=== PATIENT | male | born 1975 | race Caucasian/White ===

== ENCOUNTER 2021-06-25 08:02 | Emergency (ER) | payer MEDICARE, SELFPAY ==
--- NOTE | 2021-06-25 08:05 | ED.ANIMALBIT ---
HPI - Animal Bite General Chief Complaint: Wound/Laceration Stated Complaint: left finger dog bite Time Seen by Provider: 06/25/21 08:06 Source: patient and RN notes reviewed History of Present Illness HPI narrative: Patient is a 46-year-old male who presents the urgent care with complaints of a dog bite to the left ring finger. Patient states it happened yesterday morning when he was trying to unhook his dog from the outdoor lead. Patient states it was his dog and the dog is up-to-date on vaccinations. Patient is up-to-date on his tetanus shot. Patient states that he is clean the wound with alcohol and peroxide. No other complaints. Denies any fever. No acute distress noted. Patient aware of the plan of care. Some parts of this dictation were generated by voice recognition software and may contain typographical and/or grammatical inaccuracies. Related Data Home Medications Medication Instructions Recorded Confirmed Prozac 06/25/21 Allergies Allergy/AdvReac Type Severity Reaction Status Date / Time Sulfa (Sulfonamide Allergy rash Verified 06/25/21 08:24 Antibiotics) Review of Systems Review of Systems: CONSTITUTIONAL: Denies fever, chills, or sweats. EYES: Denies visual changes, redness, or discharge. ENT: Denies rhinorrhea, congestion, sore throat, or otalgia. CARDIOVASCULAR: Denies chest pain, palpitations, or edema. RESPIRATORY: Denies cough or dyspnea. GASTROINTESTINAL: Denies abdominal pain, nausea, vomiting, or diarrhea. GENITOURINARY: Denies dysuria or hematuria. SKIN: Reports of a dog bite to the left ring finger MUSCULOSKELETAL: Denies back pain, joint pain, or myalgia. NEUROLOGIC: Denies headache, numbness, or weakness. All other systems reviewed are negative, except as documented in HPI. PMFSH Comments At the time of my signature, I reviewed and agree with the nursing past medical, surgical, social, and family history. There is no relevant family history pertinent to the patient complaint. Exam Narrative: GENERAL: This is a well-nourished, well-developed patient, in no apparent distress. HEAD: normocephalic, atraumatic. EYES: PERRL. Sclera clear/white. Vision is grossly intact. EARS: External ears normal NOSE: External nose normal with no obvious nasal discharge, nares without redness, no rhinorrhea. THROAT: Mucous membranes moist NECK: Neck supple CARDIOVASCULAR: Regular rate and rhythm RESPIRATORY: Scant expiratory wheezes. SKIN: 2 cm linear open wound noted to the dorsal left ring finger with puncture wound to the palmar aspect of the left ring finger. NEURO: awake, alert, and oriented to person, place and time. There were no obvious focal neurologic abnormalities. EXTREMITIES: Moderate swelling with mild edema noted to the left ring finger from the PIP to the DIP. Positive strong left radial pulse with capillary refill less than 2 seconds. Course Course Level of Care: Express Care Visit Vital Signs Vital signs: Vital Signs Temperature 98.6 F 06/25/21 08:12 Pulse Rate 104 H 06/25/21 08:12 Respiratory Rate 20 06/25/21 08:12 Blood Pressure 182/89 H 06/25/21 08:12 Pulse Oximetry 100 06/25/21 08:12 Temperature 98.6 F 06/25/21 08:12 Pulse Rate 104 H 06/25/21 08:12 Respiratory Rate 20 06/25/21 08:12 Blood Pressure 182/89 H 06/25/21 08:12 Pulse Oximetry 100 06/25/21 08:12 Reviewed-patient is informed that they may have pre-hypertension or hypertension based on a blood pressure reading in the department. I recommend the patient call the primary care provider listed on their discharge instructions or a physician of their choice this week to arrange follow-up for further evaluation of possible pre-hypertension or hypertension. MDM - Animal Bite MDM Narrative Medical decision making narrative: Advised patient to clean the wound with plain Dial soap and water. Advised him to keep it open to air and use the prescription cream to the affected area as directed. Jayne
[2021-06-25 08:12] VITALS: BP 182/89; PULSE 104; RESP 20; TEMP 37; O2SAT 100
== END 2021-06-25 08:30 | disposition home or self-care (01) ==
PROVIDERS: Emergency Provider Nurse Practitioner Family; PCP Internal Medicine
DX: S61.255A Open bite of left ring finger without damage to nail, initial encounter (principal); W54.0XXA Bitten by dog, initial encounter; I10 Essential (primary) hypertension
CPT/HCPCS: 99213; G0463

== ENCOUNTER 2021-07-12 08:03 | Emergency (ER) | payer MEDICARE, SELFPAY ==
--- NOTE | 2021-07-12 08:05 | ED.ANIMALBIT ---
HPI - Animal Bite General Chief Complaint: Extremity Injury, Upper Stated Complaint: left ring finger follow up Time Seen by Provider: 07/12/21 08:05 Source: patient and RN notes reviewed History of Present Illness HPI narrative: Patient is a 26-year-old male who presents the urgent care with complaints of ongoing tenderness and slight redness around a dog bite to the left ring finger. Patient was seen on the after being bit by his own dog and placed on Augmentin and mupirocin. Patient states that it does look much better and he has continued the mupirocin however it is tender and there is slight redness surrounding the scab. Denies of any fevers, nausea, vomiting. No other acute complaints. No acute distress noted. Patient aware of the plan of care. Some parts of this dictation were generated by voice recognition software and may contain typographical and/or grammatical inaccuracies. Related Data Allergies Allergy/AdvReac Type Severity Reaction Status Date / Time Sulfa (Sulfonamide Allergy rash Verified 07/12/21 08:10 Antibiotics) Review of Systems Review of Systems: CONSTITUTIONAL: Denies fever, chills, or sweats. EYES: Denies visual changes, redness, or discharge. ENT: Denies rhinorrhea, congestion, sore throat, or otalgia. CARDIOVASCULAR: Denies chest pain, palpitations, or edema. RESPIRATORY: Denies cough or dyspnea. GASTROINTESTINAL: Denies abdominal pain, nausea, vomiting, or diarrhea. GENITOURINARY: Denies dysuria or hematuria. SKIN: Reports of redness and swelling surrounding a old dog bite MUSCULOSKELETAL: Denies back pain, joint pain, or myalgia. NEUROLOGIC: Denies headache, numbness, or weakness. All other systems reviewed are negative, except as documented in HPI. PMFSH Comments At the time of my signature, I reviewed and agree with the nursing past medical, surgical, social, and family history. There is no relevant family history pertinent to the patient complaint. Exam Narrative: GENERAL: This is a well-nourished, well-developed patient, in no apparent distress. HEAD: normocephalic, atraumatic. EYES: PERRL. Sclera clear/white. Vision is grossly intact. EARS: External ears normal NOSE: External nose normal with no obvious nasal discharge, nares without redness, no rhinorrhea. THROAT: Mucous membranes moist NECK: Neck supple CARDIOVASCULAR: Regular rate and rhythm without murmurs, gallops, or rubs. RESPIRATORY: Clear to auscultation. Breath sounds equal bilaterally. No wheezes, rales, or rhonchi. SKIN: 0.25 cm scab to the DIP of the left ring finger with mild surrounding 1 cm erythema and mild tenderness. Warm, intact with no suspicious lesions or rash, good texture and turgor. NEURO: awake, alert, and oriented to person, place and time. There were no obvious focal neurologic abnormalities. EXTREMITIES: No clubbing, cyanosis, or edema. Positive strong left radial pulse with capillary refill less than 2 seconds Course Course Level of Care: Express Care Visit Vital Signs Vital signs: Vital Signs Temperature 99.1 F 07/12/21 08:10 Pulse Rate 103 H 07/12/21 08:10 Respiratory Rate 20 07/12/21 08:10 Blood Pressure 151/86 H 07/12/21 08:10 Pulse Oximetry 100 07/12/21 08:10 Temperature 99.1 F 07/12/21 08:11 Pulse Rate 103 H 07/12/21 08:11 Respiratory Rate 20 07/12/21 08:11 Blood Pressure 151/86 H 07/12/21 08:11 Pulse Oximetry 100 07/12/21 08:11 Reviewed-patient is informed that they may have pre-hypertension or hypertension based on a blood pressure reading in the department. I recommend the patient call the primary care provider listed on their discharge instructions or a physician of their choice this week to arrange follow-up for further evaluation of possible pre-hypertension or hypertension. MDM - Animal Bite MDM Narrative Medical decision making narrative: Advised the patient to complete the oral antibiotic regimen as prescribed. Be sure to eat and drink with the
[2021-07-12 08:10] VITALS: BP 151/86; PULSE 103; RESP 20; TEMP 37.3; O2SAT 100
[2021-07-12 08:11] VITALS: BP 151/86; PULSE 103; RESP 20; TEMP 37.3; O2SAT 100
== END 2021-07-12 08:20 | disposition home or self-care (01) ==
PROVIDERS: Emergency Provider Nurse Practitioner Family; PCP Internal Medicine
DX: S61.255D Open bite of left ring finger without damage to nail, subsequent encounter (principal); W54.0XXD Bitten by dog, subsequent encounter; I10 Essential (primary) hypertension
CPT/HCPCS: 99213; G0463

== ENCOUNTER 2024-06-03 11:29 | Inpatient (IN) | payer MEDICARE, MEDICAID, SELFPAY ==
[2024-06-03] VITALS (84 sets, daily range): BP systolic 68–139; BP diastolic 37–125; PULSE 105–209; RESP 17–58; TEMP 36.6–38.5; O2SAT 78–99; BMI 25.0
--- NOTE | ~2024-06-03 | XR_ITS ---
EXAMINATION: XR chest 1V portable DATE: 06/03/2024 12:28 INDICATION: Shortness of breath. TECHNIQUE: A single frontal view of the chest was obtained. COMPARISON: None. FINDINGS: There are patchy airspace opacities in all lung zones bilaterally with sparing of the lung apices, consistent with pneumonia. No pleural effusion or pneumothorax. The heart size is normal. IMPRESSION: 1. Bilateral pneumonia. Reviewed, dictated and finalized at location A. CARPENTER MECHANIC IMPRESSION: 1. Bilateral pneumonia.
--- NOTE | ~2024-06-03 | CT_ITS ---
CT chest abdomen pelvis wo con Ordering provider: Bossman Ross MD History: 49 years Male with . worsening sepsis . Comparison: June 03, 2024 Technique: CT chest with IV contrast. CT abdomen and pelvis CT abdomen and pelvis with IV and with or al contrast. Radiation reduction technique utilized. The dose-length product was 990.74 mGy-cm. FINDINGS: CHEST: --VISUALIZED THORACIC INLET: Normal. --MEDIASTINUM: Aorta/coronary arteries: Mild atheromatous disease. Heart/other: The heart is slightly enlarged. Trace of pericardial effusion or pericardial thickening is noted. Endotracheal tube and nasogastric tube are seen. Left chest tube is also noted. Lymph nodes: No mediastinal or hilar adenopathy. --LUNGS: Trace of left pneumothorax is seen in the apex medially. Bilateral airspace disease is seen in the upper, middle and lower lobes and also in the lingula more in the lower lobes suggestive of pn eumonia. --MUSCULOSKELETAL: Soft tissues: The superficial soft tissues are normal. Bones: Age appropriate degenerative changes of the spine. No suspicious bony lytic or sclerotic lesio ns. ABDOMEN/PELVIS: --MUSCULOSKELETAL: Bones: Age appropriate degenerative changes of the spine. No suspicious bony lytic or sclerotic lesio ns. Superficial soft tissues: The superficial soft tissues are normal. --UPPER ABDOMINAL ORGANS: Liver: Normal. Gallbladder: Hyperdense material which may be stones or residual contrast. Ultrasound evaluation advi sed. Spleen: Normal. Stomach/duodenum: Normal. Pancreas: Normal. Adrenals: Normal. Kidneys: Normal. Fat stranding is seen posterior to the kidneys and around the psoas muscles. --PELVIC ORGANS: The bladder is underfilled with Jimenez's catheter. No bladder stones. --BOWEL AND MESENTERY: Colon: No evidence of diverticulitis.. The appendix is not demonstrated. Thickening In the wall of th e rectum is seen. Small Bowel: Normal. No obstruction. Peritoneum/mesentery: No free air or free fluid. No mesenteric lymphadenopathy. --RETROPERITONEUM: Mild atheromatous disease of the abdominal aorta. No retroperitoneal lymphadenop athy. IMPRESSION: CHEST: 1. Bilateral pneumonia with slight improvement in the upper lobes and worsening in the lower lobes. 2. Left chest tube with tiny apical pneumothorax. ABDOMEN/PELVIS: 1. No evidence of appendicitis, diverticulitis or intestinal obstruction. 2. Possible gallstones. 3. Retroperitoneal fat stranding which may be inflammatory. Clinical correlation and follow-up advis ed. 4. Thickened wall of the rectum. Clinical evaluation advised. Reviewed, dictated and finalized at location A. UNICATIONS TOWER CLIMBER IMPRESSION: CHEST: 1. Bilateral pneumonia with slight improvement in the upper lobes and worsenin g in the lower lobes. 2. Left chest tube with tiny apical pneumothorax. ABDOMEN/PELVIS: 1. No evidence of appendicitis, diverticulitis or intestinal obstruction. 2. Possible gallstones. 3. Retroperitoneal fat stranding which may be inflammatory. Clinical correlati on and follow-up advised. 4. Thickened wall of the rectum. Clinical evaluation advised.
--- NOTE | ~2024-06-03 | US_ITS ---
EXAMINATION: US abdomen limited DATE: 06/05/2024 08:50 INDICATION: Abnormal liver function tests. TECHNIQUE: Multiple grayscale and Doppler ultrasound images of the abdomen were obtained. COMPARISON: CT abdomen and pelvis 06/03/2024 FINDINGS: The visualized portions of the head and body of pancreas are normal. The liver is normal wi thout focal lesion. There is normal flow in main portal vein. The gallbladder is normal in size. No g allstones or gallbladder wall thickening. There is no sonographic Sterling's sign. The common duct is n ormal and measures 4 mm. There is a small volume of ascites. IMPRESSION: 1. Small volume of ascites. Reviewed, dictated and finalized at location A. HOLOGY PHYSICIAN IMPRESSION: 1. Small volume of ascites.
--- NOTE | ~2024-06-03 | XR_ITS ---
EXAMINATION: XR chest 1V portable DATE: 06/09/2024 02:19 INDICATION: Tachypnea. Altered breath sounds in the right lung TECHNIQUE: frontal view of the chest was obtained. COMPARISON: Chest radiograph dated 06/08/2024 FINDINGS: Endotracheal tube tip 4.8 cm above the marily. Nasogastric tube extends below the left hemidiaphragm with distal tip collimated off the study. Unchanged left chest tube with distal tip at the apex an d with unchanged soft tissue gas at the lateral chest wall. There is been slight improvement in the patchy bilateral airspace opacities in the bilateral mid and lower lung zones consistent with improving multifocal pneumonia. No pleural effusion or pneumothorax. The cardiomediastinal silhouette is normal. Visualized bones and soft tissues are unremarkable. IMPRESSION: 1. Slight improvement in bilateral multifocal pneumonia mid and lower lung zones. 2. Endotracheal, nasogastric and left chest tubes in expected position as detailed above. Reviewed, dictated and finalized at location A. CATTLE FARMER IMPRESSION: 1. Slight improvement in bilateral multifocal pneumonia mid and lower lung zone s. 2. Endotracheal, nasogastric and left chest tubes in expected position as jeronimo led above.
--- NOTE | ~2024-06-03 | US_ITS ---
EXAM: RENAL ULTRASOUND HISTORY: SABA COMPARISON: CT examination of the chest abdomen and pelvis dated 06/11/2024 and dating back to FINDINGS: RIGHT KIDNEY: 13.1 x 4.9 x 6.8 cm. The parenchyma of the right kidney is unremarkable in echogenicity. No hydronephrosis or bulky renal calculi. LEFT KIDNEY: 13.3 x 6.3 x 5.6 cm No hydronephrosis or renal calculi. The parenchyma of the left kidney is unremarkable in echogenicity. BLADDER: Decompressed with a Jimenez catheter, limiting its evaluation. IMPRESSION: No hydronephrosis or renal calculi. Reviewed, dictated and finalized at location A. ATTENDANT
--- NOTE | ~2024-06-03 | XR_ITS ---
XR chest 1V portable Ordering provider: Bossman Ross MD History: 49 years Male with . decreased sats high respiratory rate . Comparison: June 08, 2024 FINDINGS: MEDIASTINUM: The cardiac silhouette is slightly enlarged. Endotracheal tube is seen with the tip abov e the marily by 5 cm. Nasogastric tube is seen extending to the stomach. LUNGS: Left pneumothorax of about 60 to 70% is noted. Pneumonia is seen in the right upper and lower lobe and left lung. OTHER: No free air under the diaphragm. IMPRESSION: Left large pneumothorax of about 60-70%. Bilateral pneumonia. melita Scott the supervisor dimension warehouse was notified with the result of the patient at 8:20 PM on June 08, 2024. Reviewed, dictated and finalized at location A. CLEANER HELPER
--- NOTE | ~2024-06-03 | CT_ITS ---
CLINICAL INDICATION: Respiratory failure COMPARISON: None. TECHNIQUE: Multiple contiguous axial images of the chest, abdomen and pelvis were performed without t he administration of intravenous contrast The dose-length product (DLP) was 897.37 mGy-cm. Automated exposure control and iterative reconstruction technique were employed. FINDINGS/OBSERVATIONS: LUNG: Dense consolidation is identified within the right upper, right middle and right lower lobes. Dense consolidation of the left lower lobe is also noted, with patchy consolidation of the left upper lobe. A loculated effusion is identified within the periphery of the left upper lobe, a pattern similar to what one might see following rib fracture. Although, evaluation of the adjacent ribs is limited secon kurt to respiratory motion artifact. The bilateral upper lobes are spared. MEDIASTINUM: Limited evaluation without intravenous contrast. HEART: The heart is of normal size, without pericardial effusion. SOFT TISSUES OF THE CHEST: Unremarkable. BONES OF THE CHEST: Examination is limited for the detection of lung fractures secondary to significa nt respiratory motion artifact. Liver: The liver demonstrates homogeneous attenuation and is enlarged measuring 21 cm in longitudinal dimens ion. Gallbladder and biliary system: The gallbladder is only minimally distended, and otherwise unremarkable. Pancreas: Limited evaluation of the pancreas secondary to the lack of intravenous contrast. Spleen: The spleen demonstrates homogeneous attenuation and is significantly enlarged measuring 16 cm in long itudinal dimension. Kidneys: The bilateral kidneys are unremarkable, without hydronephrosis or renal calculi. Adrenal glands: Unremarkable. Gastrointestinal tract: Fecal stasis within the colon. Appendix: The appendix is not definitively visualized. Vasculature: Calcified atherosclerotic disease, far advanced for patient of this age. Lymph nodes: Limited evaluation without intravenous contrast. Pelvic structures: The bladder is decompressed with Jimenez catheter. The prostate gland is not enlarged. Free fluid is identified within the deep pelvis, never a normal finding in a male patient. Body wall and musculoskeletal: Degenerative disease within the lumbosacral spine at the level of L4/L5 and L5/S1 with osteophyte for mation, disc space narrowing, endplate changes and vacuum phenomena. IMPRESSION: Dense bilateral pulmonary infiltrates. Loculated dense effusion within the left upper lobe, similar to what one might see with an adjacent f racture. Although, significant respiratory artifact renders this evaluation limited. Perhaps once adequate resuscitation has been performed and lung findings are improving repeat imaging may be attempted with intravenous contrast, in order to evaluate for the presence or absence of acut e traumatic injury. Hepatosplenomegaly. Free fluid within the deep pelvis, never a normal finding in a male patient. Reviewed, dictated and finalized at location A. RINARY MILK SPECIALIST IMPRESSION: Dense bilateral pulmonary infiltrates. Loculated dense effusion within the left upper lobe, similar to what one might see with an adjacent fracture. Although, significant respiratory artifact renders this evaluation limited. Perhaps once adequate resuscitation has been performed and lung findings are im proving repeat imaging may be attempted with intravenous contrast, in order to evaluate for the presence or absence of acute traumatic injury. Hepatosplenomegaly. Free fluid within the deep pelvis, never a normal finding in a male patient.
--- NOTE | ~2024-06-03 | XR_ITS ---
CHEST RADIOGRAPH CLINICAL HISTORY: increased oxygen demands . COMPARISON: Previous radiograph of the chest performed 4 hours earlier. TECHNIQUE: Single portable view of the chest. FINDINGS Endotracheal tube is redemonstrated with its tip projecting approximately 2.7 cm above the base of th e marily. Nasogastric tube identified with its tip extending below the left hemidiaphragm, presumably within th e stomach. The remainder of the cardiomediastinal silhouette is otherwise unremarkable. Redemonstration of dense consolidation within the right upper lobe with patchy opacification in the r emainder of the bilateral lung zones, sparing the bilateral apices. IMPRESSION: Redemonstration of a multifocal pneumonia, as detailed above. Endotracheal and orogastric tubes in good radiographic position. Reviewed, dictated and finalized at location A. ICE PLUMBER
--- NOTE | ~2024-06-03 | XR_ITS ---
XR chest 1V portable 06/08/2024 06:00 Indication: Respiratory failure Procedure: AP portable chest Comparison: Comparison to multiple prior studies sequentially, with oldest reviewed study dated 06/04. Findings: Endotracheal tube tip 4.9 cm above the marily. Heart size normal. NG tube in the stomach. N o pneumothorax. There is persistent extensive bilateral airspace disease. Small pleural effusions. No acute osseous abnormality. Impression: 1: Persistent bilateral airspace disease which is not significantly changed allowing for technique, c onsistent with edema versus pneumonia. Reviewed, dictated and finalized at location A. R TANKER DRIVER Impression: 1: Persistent bilateral airspace disease which is not significantly changed all owing for technique, consistent with edema versus pneumonia.
--- NOTE | ~2024-06-03 | XR_ITS ---
XR chest 1V portable 06/07/2024 05:36 Indication: Acute respiratory failure Procedure: AP portable chest Comparison: Comparison to multiple prior studies sequentially, with oldest reviewed study dated 06/03. Findings: Endotracheal tube tip 5.6 cm above the marily. NG tube in the stomach. No pneumothorax. No significant effusion. Stable extensive bilateral airspace disease, compatible with pneumonia. Impression: 1: Stable bilateral multifocal pneumonia. Reviewed, dictated and finalized at location A. CORNER STAYER MACHINE OPERATOR Impression: 1: Stable bilateral multifocal pneumonia.
--- NOTE | ~2024-06-03 | XR_ITS ---
Portable chest x-ray Comparison: 06/10/2024 Clinical History: Respiratory failure Findings: Endotracheal tube, NG tube, and left-sided chest tube are in place. Extensive bilateral pu lmonary consolidation is present, sparing the apices. No pneumothorax evident. Cardiomediastinal maral houette is stable. Bones and soft tissues are unremarkable. Impression: Stable extensive bilateral pneumonia versus possibly pulmonary edema. Correlate clinically. Stable support tubes. No definite pneumothorax. Reviewed, dictated and finalized at [facility]. OPERATOR HEAD Impression: Stable extensive bilateral pneumonia versus possibly pulmonary edema. Correlate clinically. Stable support tubes. No definite pneumothorax.
--- NOTE | ~2024-06-03 | XR_ITS ---
EXAMINATION: XR chest 1V portable DATE: 06/13/2024 13:47 INDICATION: Respiratory failure. Pneumonia. TECHNIQUE: A single frontal view of the chest was obtained on 2 radiographs. COMPARISON: Chest view 06/12/2024 FINDINGS: There are airspace opacities in the mid and lower lung zones, right worse than left. No ple ural effusion or pneumothorax. The heart size is normal. The endotracheal tube tip is 7.3 cm above th e marily. The nasogastric tube tip is beyond the inferior margin of the radiograph, but at least to t he stomach. A left-sided chest tube is noted. IMPRESSION: 1. Airspace opacities in the mid and lower lung zones, right worse than left with mild improvement on the left, consistent with pneumonia. 2. No pneumothorax. Left-sided chest tube in expected position. Reviewed, dictated and finalized at location A. K OF SCALES IMPRESSION: 1. Airspace opacities in the mid and lower lung zones, right worse than left wi th mild improvement on the left, consistent with pneumonia. 2. No pneumothorax. Left-sided chest tube in expected position.
--- NOTE | ~2024-06-03 | XR_ITS ---
Portable chest x-ray Comparison: 06/09/2024 Clinical History: Pneumonia Findings: Endotracheal tube and NG tube are in satisfactory positions. Extensive patchy bilateral ai rspace consolidation is present, with sparing of the lung apices. Cardiomediastinal silhouette is st able. Bones and soft tissues are unremarkable. Impression: Extensive patchy bilateral airspace consolidations compatible bilateral pneumonia, with relative spar ing of the lung apices. Findings are similar to prior exam. Stable support tubes. Reviewed, dictated and finalized at location M. RCIL CORE TRANSFORMER ASSEMBLER Impression: Extensive patchy bilateral airspace consolidations compatible bilateral pneumon ia, with relative sparing of the lung apices. Findings are similar to prior exa m. Stable support tubes.
--- NOTE | ~2024-06-03 | XR_ITS ---
XR chest-chest tube insert/pos Ordering provider: Vincent Kwok MD History: 49 years Male with . chest tube placement . Comparison: 06/08/2024 at 8:03 PM FINDINGS: MEDIASTINUM: The cardiac silhouette is not enlarged. Endotracheal tube and nasogastric tube are uncha nged. Left chest tube is placed in the interval. LUNGS: Trace of left apical pneumothorax is noted. No effusion is noted. Pneumonia is seen in the rig ht upper and lower lobe and left lower lobe. OTHER: Air is seen in the subcutaneous tissues at the site of the insertion of the left chest tube. No free air under the diaphragm. IMPRESSION: Status post placement of left chest tube with trace of left apical pneumothorax seen. Bilateral pneumonia. Reviewed, dictated and finalized at location A. ATAL SURGEON
--- NOTE | ~2024-06-03 | XR_ITS ---
CHEST RADIOGRAPH CLINICAL HISTORY: intubation . COMPARISON: Radiograph of the chest performed approximately 20 minutes earlier. TECHNIQUE: Single portable view of the chest. FINDINGS Endotracheal tube is identified with its tip projecting approximately 4.6 cm above the base of the ca arpita. Nasogastric tube identified with its tip extending below the left hemidiaphragm, presumably within th e stomach. The remainder of the cardiomediastinal silhouette is otherwise unremarkable. Dense consolidation within the right upper lobe with patchy opacification in the remainder of the jayme ateral lung zones, sparing the bilateral apices, findings suggesting aspiration pneumonia. IMPRESSION: Endotracheal tube and orogastric tube in good position, and ready for immediate use. Radiograph of the chest is otherwise unchanged. Reviewed, dictated and finalized at location A. TEGIC MARKETING LEADER
--- NOTE | ~2024-06-03 | XR_ITS ---
XR chest 1V portable Ordering provider: Bossman Ross MD History: 49 years Male with . respiratory failure . Comparison: June 10, 2024 FINDINGS: MEDIASTINUM: The cardiac silhouette is not enlarged. Endotracheal tube and nasogastric tube are uncha nged. Congestive libra. Left Chest tube unchanged. LUNGS: No effusions or pneumothorax. Bilateral perihilar and lower lobe airspace disease suggestive o f pneumonia versus pulmonary edema slightly increased. OTHER: No free air under the diaphragm. IMPRESSION: Slightly increased changes in the lungs compared to previous study. Reviewed, dictated and finalized at location A. IT RATING INSPECTOR
--- NOTE | ~2024-06-03 | XR_ITS ---
Portable chest x-ray Comparison: 06/04/2024 Clinical History: Respiratory failure Findings: Endotracheal tube and NG tube are in satisfactory positions. Extensive bilateral pulmonary consolidation is worsened from prior exam. Cardiomediastinal silhouette is stable. Bones and soft t issues are unremarkable. Impression: Multilobar bilateral pneumonia, worsened from prior exam. Support tubes, as above. Reviewed, dictated and finalized at location . YER AUTOMATIC SPRAY MACHINE Impression: Multilobar bilateral pneumonia, worsened from prior exam. Support tubes, as above.
--- NOTE | ~2024-06-03 | XR_ITS ---
EXAMINATION: XR chest 1V portable DATE: 06/15/2024 05:54 INDICATION: Respiratory failure. TECHNIQUE: A single frontal view of the chest was obtained. COMPARISON: Chest single view 06/14/2024, chest CT 06/11/2024 FINDINGS: There are airspace opacities in all lung zones, worst in the mid and lower lung zones. Ther e are small pleural effusions. No pneumothorax. The heart size is normal. The endotracheal tube tip i s 6.3 cm above the marily. The nasogastric tube tip is beyond the inferior margin of the radiograph, but at least to the stomach. A left-sided chest tube is noted. IMPRESSION: 1. Stable diffuse lung disease, consistent with pneumonia. 2. Small pleural effusions. 3. No pneumothorax. Left-sided chest tube in expected position. Reviewed, dictated and finalized at location A. ND FORMING MACHINE OPERATOR
--- NOTE | ~2024-06-03 | XR_ITS ---
Portable chest x-ray Comparison: 06/13/2024 Clinical History: Respiratory failure Findings: Endotracheal tube, NG tube, and left-sided chest tube in place. No pneumothorax. Extensive hazy and interstitial disease present, with relative sparing of the lung apices. Cardiomediastinal silhouette is stable. Bones and soft tissues are unremarkable. 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 Correlate clinically for pulmonary edema and/or chronic interstitial disease. Support tubes, as above. No pneumothorax. Reviewed, dictated and finalized at [facility]. 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 Correlate clinically for pulmonary edema and /or chronic interstitial disease. Support tubes, as above. No pneumothorax.
--- NOTE | ~2024-06-03 | XR_ITS ---
Portable chest x-ray Comparison: 06/05/2024 Clinical History: Respiratory failure Findings: Endotracheal tube and NG tube are in satisfactory positions. Multifocal bilateral pulmonar y consolidation is again present, worst in the right upper and lower lobes. Cardiomediastinal silhou ette is stable. Bones and soft tissues are unremarkable. Impression: Multifocal bilateral pneumonia, unchanged. Stable support tubes. Reviewed, dictated and finalized at location . ED LINEN DISTRIBUTOR Impression: Multifocal bilateral pneumonia, unchanged. Stable support tubes.
--- NOTE | ~2024-06-03 | XR_ITS ---
Portable chest x-ray Comparison: 06/11/2024 Clinical History: Respiratory failure Findings: Endotracheal tube and NG tube are in satisfactory positions. Extensive bilateral pulmonary consolidation similar to prior exam. Probable small right pleural effusion. Cardiomediastinal silho uette is stable. Bones and soft tissues are unremarkable. Impression: Extensive bilateral pulmonary consolidation is similar to prior exam, compatible with multifocal pneu monia. Probable small right pleural effusion. Support tubes, as above. Reviewed, dictated and finalized at location . IC EVENTS FACILITIES RENTAL MANAGER Impression: Extensive bilateral pulmonary consolidation is similar to prior exam, compatibl e with multifocal pneumonia. Probable small right pleural effusion. Support tubes, as above.
--- NOTE | ~2024-06-03 | XR_ITS ---
CHEST RADIOGRAPH CLINICAL HISTORY: Resp Failure, prone imaging. COMPARISON: 06/03/2024 TECHNIQUE: Single portable view of the chest. FINDINGS Endotracheal tube is identified with its tip projecting approximately 5.3 cm above the base of the ca arpita. Nasogastric tube identified with its tip extending below the left hemidiaphragm, presumably within th e stomach. The remainder of the cardiomediastinal silhouette is otherwise unremarkable. Dense consolidation within the right upper lobe persists. Patchy consolidation within the right middle lobe is also unchanged. Persistent pleural thickening along the left lateral chest wall. No plain film evidence of acute fracture. Improved aeration of the left hemithorax. No pneumothorax is appreciated. IMPRESSION: Improved aeration of the left hemithorax when compared with previous studies. Right hemithorax is unchanged. Supportive lines and tubes in good position. Reviewed, dictated and finalized at location A. D CERTIFIED ARTS THERAPIST
--- NOTE | 2024-06-03 11:33 | ECG_ITS ---
Test Date: 2024-06-03 11:57:15 Measurements Intervals [place] Rate: 115 P: 0 NM: 0 QRS: 62 QRSD: 89 T: 62 QT: 297 QTc: 412 Interpretive Statements ATRIAL FIBRILLATION WITH RAPID VENTRICULAR RESPONSE WITH ATRIAL COUPLETS AND FREQUENT ATRIAL AND VENTRICULAR PREMATURE COMPLEXES ST ELEVATION CONSISTENT WITH INJURY, PERICARDITIS, OR EARLY REPOLARIZATION BASELINE WANDER- II, III, AVL, AVF, V1, V5-V6 ABNORMAL ECG No previous ECG available for comparison Electronically Signed On 06-03-2024 16:45:53 PROPOSAL COORDINATOR by Merrick Alford D.O.
[2024-06-03] MEDS: METOPROLOL TARTRATE INJ 5 MG/5 ML VIAL IV PUSH ×2 (11:37→16:54)
--- OUTSIDE RECORDS SUMMARY | 2024-06-03 11:37 | XMS_ITS | Data Portability ---
Author Organization [facility] Address [address] [place] [address] Care Team Providers Care Plan Manager Name Role Phone DENNISE ODELL Primary Care Provider Assessment No assessment recorded. Plan of Treatment Reminders Order Date Submit Date Provider Last Modified By Organization Details Last Modified Time Details Appointments ANY 30 2024 10:45A M ORIANA CHEN MD Not available Not available Not available Lab TSH, ultra-sen sitive, serum 2023 024 [facility], [address] [facility], [facility] [address], [place], [address], 12/27/2023 03:08:46 CBC w/ auto diff 2023 024 [facility], [address] [facility], [facility] [address], [place], [address], 12/27/2023 03:08:46 CMP, serum or plasma 2023 024 [facility], [address] [facility], [facility], [place], [address], 12/27/2023 03:08:45 lipid panel, serum 2023 024 [facility], [address] [facility], [place], [address], 12/27/2023 03:08:44 fecal occult blood, immunoass ay, stool 2023 024 [email or web address], [address] [facility], [address], [place], [address], 05/18/2024 11:07:04 fecal occult blood, immunoass ay, stool 2022 023 [facility], [address] [place] [address] [address], [place], [address], 10/26/2022 16:14:17 Referral None recorded. Procedures None recorded. Surgeries None recorded. Imaging LDCT, chest, for lung cancer screening 2023 024 [email or web address], [address] [facility] , [place], [address], 12/21/2023 09:01:59 Medication Orders amoxicill in 500 mg capsule 2023 [id number], [address], [place], [place], [id number], 02/07/2024 11:42:44 cetirizin e 10 mg tablet 2023 024 [id number], [address], [place], [place], [id number], 02/07/2024 11:42:45 losartan 50 mg tablet 2023 024 [id number], [address], [place], [place], [id number], 05/23/2023 16:00:32 Incruse Ellipta 62.5 mcg/actua tion powder for inhalatio n 2023 024 [id number], [address], [place], [id number], 11/21/2023 09:29:43 albuterol sulfate HFA 90 mcg/actua tion aerosol inhaler 2023 [id number], [address], [place], [place], [id number], 11/21/2023 09:30:07 Patient TargetsNo targets recorded. Patient Instructions Encounter Date Encounter Id Patient Instructions Last Modified By Organization Details Last Modified Time 10/19/2022 [id number] A healthy lifestyle: care instructions nsuthan Not available 10/19/2022 09:23:58 stool kit /labs f/u in 6 month nsuthan Not available 10/19/2022 09:30:57 05/23/2023 [id number] A healthy lifestyle: care instructions nsuthan Not available 05/23/2023 11:29:08 Quitting Tobacco : Care Instructions nsuthan Not available 05/23/2023 11:29:08 f/u in 1 month nsuthan Not available 0 05/23/2023 11:29:06 07/18/2023 [id number] A healthy lifestyle: care instructions nsuthan Not available 07/18/2023 09:35:52 f/u in 4 month nsuthan Not available 0 07/18/2023 09:41:37 11/21/2023 [id number] Quitting Tobacco : Care Instructions nsuthan Not available 11/21/2023 09:36:57 stool kit/f/u in 6month nsuthan Not available 11/21/2023 09:32:51 02/07/2024 [id number] keep f/u nsuthan Not available 02/06 11:43:17 Reason for Referral None Reported. Results Created Date Observation Date Name Description Value Unit Range Abnormal Flag Note LastModifiedBy Organization Detail LastModifiedTime 10/20/1910/20/2022 LIPID PANEL cholesterol, total 150 mg/dL 100-19 9 Not Available [facility] ([facility]) [address] [facility], [place], [address], 10/20/2022 12:12:59 10/20/1910/20/2022 LIPID PANEL triglyceride s 57 mg/dL 0-149 Not Available [facility] ([facility]) [address] [facility], [place], [address], 10/20/2022 12:12:59 10/20/1910/20/2022 LIPID PANEL HDL cholesterol 71 mg/dL >39 Not Available [facility] ([facility]) [address] [place], [address], 10/20/2022 12:12:59 10/20/19 23 10/20/2022 LIPID PANEL VLDL cholesterol ruben 12 mg/dL 5-40 Not Available [facility] ([facility]) [address] [place], [address], 10/20/2022 12:12:59 10/20/19 23 10/20/2022 LIPID PANEL LDL chol calc ([facility]) 67 mg/dL 0-99 Not Available [facility] ([facility]) [address] [place], [address], 10/20/2022 12:12:59 10/20/19 23 10/20/2022 COMP. METAB OLIC PANEL (14) glucose 113 mg/dL 70-99 above high normal Not Available [facility] ([facility]) [address] [place], [address], 10/20/2022 12:13:00 10/20/1910/20/2022 COMP. METAB OLIC PANEL (14) BUN 10 mg/dL 6-24 Not Available [facility] ([facility]) [address] [place], [address], 10/20/2022 12:13:00 10/20/1910/20/2022 COMP. METAB OLIC PANEL (14) creatinine 0.82 mg/dL 0.76-1 .27 Not Available [facility] ([facility]) [address] [place], [address], 10/20/2022 12:13:00 10/20/19 23 10/20/2022 COMP. METAB OLIC PANEL (14) eGFR 110 mL/mi n/1.7 3 >59 Not Available [facility] ([facility]) [address] [place], [address], 10/20/2022 12:13:00 10/20/19 23 10/20/2022 COMP. METAB OLIC PANEL (14) BUN/creatini ne ratio 12 9-20 Not Available [facility] ([facility]) [address] [facility], [place], [address], 10/20/2022 12:13:00 10/20/19 23 10/20/2022 COMP. METAB OLIC PANEL (14) sodium 140 mmol/ L 134-14 4 Not Available [facility] ([facility]) [address] [facility] [place] [place], [address], 10/20/2022 12:13:00 10/20/19 23 10/20/2022 COMP. METAB OLIC PANEL (14) potassium 3.9 mmol/ L 3.5-5. 2 Not Available [facility] ([facility]) [address] [place], [address], 10/20/2022 12:13:00 10/20/19 23 10/20/2022 COMP. METAB OLIC PANEL (14) chloride 100 mmol/ L 96-106 Not Available [facility] ([facility]) [address] [place], [address], 10/20/2022 12:13:00 10/20/19 23 10/20/2022 COMP. METAB OLIC PANEL (14) carbon dioxide, total 23 mmol/ L 20-29 Not Available [facility] ([facility]) [address] [place], [address], 10/20/2022 12:13:00 10/20/19 23 10/20/2022 COMP. METAB OLIC PANEL (14) calcium 9.5 mg/dL 8.7-10 .2 Not Available [facility] ([facility]) [address] [place], [address], 10/20/2022 12:13:00 10/20/19 23 10/20/2022 COMP. METAB OLIC PANEL (14) protein, total 7.0 g/dL 6.0-8. 5 Not Available [facility] ([facility]) [address] [facility], [place], [address], 10/20/2022 12:13:00 10/20/19 23 10/20/2022 COMP. METAB OLIC PANEL (14) albumin 4.4 g/dL 4.1-5. 1 Ple ase note refer ence inter haley mitchell e Not Available [facility] ([facility]) [address] [facility], [place], [address], 10/20/2022 12:13:00 10/20/19 23 10/20/2022 COMP. METAB OLIC PANEL (14) globulin, total 2.6 g/dL 1.5-4. 5 Not Available [facility] ([facility]) [address] [facility], [place], [address], 10/20/2022 12:13:00 10/20/19 23 10/20/2022 COMP. METAB OLIC PANEL (14) A/G ratio 1.7 1.2-2. 2 Not Available [facility] ([facility]) [address] [facility], [place], [address], 10/20/2022 12:13:00 10/20/19 23 10/20/2022 COMP. METAB OLIC PANEL (14) bilirubin, total 0.2 mg/dL 0.0-1. 2 Not Available [facility] ([facility]) [address] [facility], [place], [address], 10/20/2022 12:13:00 10/20/19 23 10/20/2022 COMP. METAB OLIC PANEL (14) alkaline phosphatase 68 IU/L 44-121 Not Available [facility] ([facility]) [address] [facility], [place], [address], 10/20/2022 12:13:00 10/20/19 23 10/20/2022 COMP. METAB OLIC PANEL (14) AST (SGOT) 19 IU/L 0-40 Not Available [facility] ([facility]) [address] [facility], [place], [address], 10/20/2022 12:13:00 10/20/19 23 10/20/2022 COMP. METAB OLIC PANEL (14) ALT (SGPT) 20 IU/L 0-44 Not Available [facility] ([facility]) [address] [facility], [place], [address], 10/20/2022 12:13:00 10/20/19 23 10/20/2022 HEMOG LOBIN A1C hemoglobin A1C 4.9 % 4.8-5. 6 Predi abete s: 5.7 - 6.4 Diabe shashi: >6.4 Glyce galileo contr ol for adult s with diabe shashi: <7.0 Not Available [facility] ([facility]) [address] [facility], [place], [address], 10/20/2022 12:13:01 10/20/1910/20/2022 TSH TSH 1.970 uIU/m L 0.450- 4.500 Not Available [facility] ([facility]) [address] [facility], [place], [address], 10/20/2022 12:13:02 10/20/19 23 10/20/2022 CBC WITH DIFFE RENTI AL/PL ATELE T WBC 8.3 x10e3 /uL 3.4-10 .8 Not Available [facility] ([facility]) [address] [place], [address], 10/20/2022 12:13:02 10/20/19 23 10/20/2022 CBC WITH DIFFE RENTI AL/PL ATELE T RBC 4.52 x10e6 /uL 4.14-5 .80 Not Available [facility] ([facility]) [address] [place], [address], 10/20/2022 12:13:02 10/20/19 23 10/20/2022 CBC WITH DIFFE RENTI AL/PL ATELE T hemoglobin 14.4 g/dL 13.0-1 7.7 Not Available [facility] ([facility]) [address] [facility], [place], [address], 10/20/2022 12:13:02 10/20/19 23 10/20/2022 CBC WITH DIFFE RENTI AL/PL ATELE T hematocrit 42.8 % 37.5-5 1.0 Not Available [facility] ([facility]) [address] [facility], [place], [address], 10/20/2022 12:13:02 10/20/1910/20/2022 CBC WITH DIFFE RENTI AL/PL ATELE T MCV 95 fL 79-97 Not Available [facility] ([facility]) [address] [facility], [place], [address], 10/20/2022 12:13:02 10/20/1910/20/2022 CBC WITH DIFFE RENTI AL/PL ATELE T MCH 31.9 pg 26.6-3 3.0 Not Available [facility] ([facility]) [address] [place], [address], 10/20/2022 12:13:02 10/20/1910/20/2022 CBC WITH DIFFE RENTI AL/PL ATELE T MCHC 33.6 g/dL 31.5-3 5.7 Not Available [facility] ([facility]) [address] [place], [address], 10/20/2022 12:13:02 10/20/1910/20/2022 CBC WITH DIFFE RENTI AL/PL ATELE T RDW 13.1 % 11.6-1 5.4 Not Available [facility] ([facility]) [address] [place], [address], 10/20/2022 12:13:02 07/11/20 23 10/20/2022 CBC WITH DIFFE RENTI AL/PL ATELE T platelets 303 x10e3 /uL 150-45 0 Not Available [facility] ([facility]) [address] [facility], [place], [address], 10/20/2022 12:13:02 10/20/19 23 10/20/2022 CBC WITH DIFFE RENTI AL/PL ATELE T neutrophils 65 % notest ab. Not Available [facility] ([facility]) [address] [facility], [place], [address], 10/20/2022 12:13:02 10/20/19 23 10/20/2022 CBC WITH DIFFE RENTI AL/PL ATELE T lymphs 26 % notest ab. Not Available [facility] ([facility]) [address] [facility], [place], [address], 10/20/2022 12:13:02 10/20/19 23 10/20/2022 CBC WITH DIFFE RENTI AL/PL ATELE T monocytes 8 % notest ab. Not Available [facility] ([facility]) [address] [facility], [place], [address], 10/20/2022 12:13:02 10/20/19 23 10/20/2022 CBC WITH DIFFE RENTI AL/PL ATELE T eos 1 % notest ab. Not Available [facility] ([facility]) [address] [facility], [place], [address], 10/20/2022 12:13:02 10/20/19 23 10/20/2022 CBC WITH DIFFE RENTI AL/PL ATELE T basos 0 % notest ab. Not Available [facility] ([facility]) [address] [facility], [place], [address], 10/20/2022 12:13:02 10/20/19 23 10/20/2022 CBC WITH DIFFE RENTI AL/PL ATELE T neutrophils (absolute) 5.4 x10e3 /uL 1.4-7. 0 Not Available [facility] ([facility]) [address] [facility], [place], [address], 10/20/2022 12:13:02 10/20/19 23 10/20/2022 CBC WITH DIFFE RENTI AL/PL ATELE T lymphs (absolute) 2.1 x10e3 /uL 0.7-3. 1 Not Available [facility] ([facility]) [address] [facility], [place], [address], 10/20/2022 12:13:02 10/20/19 23 10/20/2022 CBC WITH DIFFE RENTI AL/PL ATELE T monocytes(ab solute) 0.6 x10e3 /uL 0.1-0. 9 Not Available [facility] ([facility]) [address] [facility], [place], [address], 10/20/2022 12:13:02 10/20/19 23 10/20/2022 CBC WITH DIFFE RENTI AL/PL ATELE T eos (absolute) 0.1 x10e3 /uL 0.0-0. 4 Not Available [facility] ([facility]) [address] [facility], [place], [address], 10/20/2022 12:13:02 10/20/19 23 10/20/2022 CBC WITH DIFFE RENTI AL/PL ATELE T baso (absolute) 0.0 x10e3 /uL 0.0-0. 2 Not Available [facility] ([facility]) [address] [place], [address], 10/20/2022 12:13:02 10/20/1910/20/2022 CBC WITH DIFFE RENTI AL/PL ATELE T immature granulocytes 0 % notest ab. Not Available [facility] ([facility]) [address] [place], [address], 10/20/2022 12:13:02 10/20/19 23 10/20/2022 CBC WITH DIFFE RENTI AL/PL ATELE T immature grans (abs) 0.0 x10e3 /uL 0.0-0. 1 Not Available [facility] ([facility]) [address] [facility], [place], [address], 10/20/2022 12:13:02 10/26/19 23 10/26/2022 COLOF IT,OC CULT BLOOD ,FECA L,IA occult blood, fecal, ia NEGATI VE negati ve Not Available [facility] ([facility]) [address] [facility], [place], [address], 10/26/2022 16:14:17 12/26/19 24 12/27/2023 LIPID PANEL cholesterol, total 166 mg/dL 100-19 9 Not Available [facility] ([facility]) [address] [place], [address], 12/27/2023 03:08:44 12/26/19 24 12/27/2023 LIPID PANEL triglyceride s 64 mg/dL 0-149 Not Available [facility] ([facility]) [address] [place], [address], 12/27/2023 03:08:44 12/26/19 24 12/27/2023 LIPID PANEL HDL cholesterol 74 mg/dL >39 Not Available [facility] ([facility]) [address] [place], [address], 12/27/2023 03:08:44 12/26/19 24 12/27/2023 LIPID PANEL VLDL cholesterol ruben 13 mg/dL 5-40 Not Available [facility] ([facility]) [address] [place], [address], 12/27/2023 03:08:44 12/26/19 24 12/27/2023 LIPID PANEL LDL chol calc ([facility]) 79 mg/dL 0-99 Not Available [facility] ([facility]) [address] [place], [address], 12/27/2023 03:08:44 12/26/19 24 12/27/2023 COMP. METAB OLIC PANEL (14) glucose 102 mg/dL 70-99 above high normal Not Available [facility] ([facility]) [address] [facility], [place], [address], 12/27/2023 03:08:45 12/26/19 24 12/27/2023 COMP. METAB OLIC PANEL (14) BUN 11 mg/dL 6-24 Not Available [facility] ([facility]) [address] [facility] [place] [place], [address], 12/27/2023 03:08:45 12/26/19 24 12/27/2023 COMP. METAB OLIC PANEL (14) creatinine 0.93 mg/dL 0.76-1 .27 Not Available [facility] ([facility]) [address] [facility], [place], [address], 12/27/2023 03:08:45 12/26/19 24 12/27/2023 COMP. METAB OLIC PANEL (14) eGFR 103 mL/mi n/1.7 3 >59 Not Available [facility] ([facility]) [address] [facility], [place], [address], 12/27/2023 03:08:45 12/26/19 24 12/27/2023 COMP. METAB OLIC PANEL (14) BUN/creatini ne ratio 12 9-20 Not Available [facility] ([facility]) [address] [place], [address], 12/27/2023 03:08:45 12/26/19 24 12/27/2023 COMP. METAB OLIC PANEL (14) sodium 137 mmol/ L 134-14 4 Not Available [facility] ([facility]) [address] [place], [address], 12/27/2023 03:08:45 12/26/19 24 12/27/2023 COMP. METAB OLIC PANEL (14) potassium 4.5 mmol/ L 3.5-5. 2 Not Available [facility] ([facility]) [address] [facility] [place] [place], [address], 12/27/2023 03:08:45 12/26/19 24 12/27/2023 COMP. METAB OLIC PANEL (14) chloride 100 mmol/ L 96-106 Not Available [facility] ([facility]) [address] [facility] [place] [place], [address], 12/27/2023 03:08:45 12/26/19 24 12/27/2023 COMP. METAB OLIC PANEL (14) carbon dioxide, total 23 mmol/ L 20-29 Not Available [facility] ([facility]) [address] [facility] [place] [place], [address], 12/27/2023 03:08:45 12/26/19 24 12/27/2023 COMP. METAB OLIC PANEL (14) calcium 9.8 mg/dL 8.7-10 .2 Not Available [facility] ([facility]) [address] [place], [address], 12/27/2023 03:08:45 12/26/19 24 12/27/2023 COMP. METAB OLIC PANEL (14) protein, total 7.1 g/dL 6.0-8. 5 Not Available [facility] ([facility]) [address] [place], [address], 12/27/2023 03:08:45 12/26/19 24 12/27/2023 COMP. METAB OLIC PANEL (14) albumin 4.5 g/dL 4.1-5. 1 Not Available [facility] ([facility]) [address] [place], [address], 12/27/2023 03:08:45 12/26/19 24 12/27/2023 COMP. METAB OLIC PANEL (14) globulin, total 2.6 g/dL 1.5-4. 5 Not Available [facility] ([facility]) [address] [facility], [place], [address], 12/27/2023 03:08:45 12/26/19 24 12/27/2023 COMP. METAB OLIC PANEL (14) bilirubin, total 0.2 mg/dL 0.0-1. 2 Not Available [facility] ([facility]) [address] [facility], [place], [address], 12/27/2023 03:08:45 12/26/19 24 12/27/2023 COMP. METAB OLIC PANEL (14) alkaline phosphatase 74 IU/L 44-121 Not Available [facility] ([facility]) [address] [facility], [place], [address], 12/27/2023 03:08:45 12/26/19 24 12/27/2023 COMP. METAB OLIC PANEL (14) AST (SGOT) 18 IU/L 0-40 Not Available [facility] ([facility]) [address] [facility], [place], [address], 12/27/2023 03:08:45 12/26/19 24 12/27/2023 COMP. METAB OLIC PANEL (14) ALT (SGPT) 13 IU/L 0-44 Not Available [facility] ([facility]) [address] [place], [address], 12/27/2023 03:08:45 12/26/19 24 12/27/2023 TSH RFX ON ABNOR MAL TO FREE T4 TSH 1.890 uIU/m L 0.450- 4.500 Not Available [facility] ([facility]) [address] [place], [address], 12/27/2023 03:08:46 12/26/19 24 12/26/2023 CBC WITH DIFFE RENTI AL/PL ATELE T WBC 8.9 x10e3 /uL 3.4-10 .8 Not Available [facility] ([facility]) [address] [facility], [place], [address], 12/27/2023 03:08:46 12/26/19 24 12/26/2023 CBC WITH DIFFE RENTI AL/PL ATELE T RBC 4.47 x10e6 /uL 4.14-5 .80 Not Available [facility] ([facility]) [address] [facility], [place], [address], 12/27/2023 03:08:46 12/26/19 24 12/26/2023 CBC WITH DIFFE RENTI AL/PL ATELE T hemoglobin 14.5 g/dL 13.0-1 7.7 Not Available [facility] ([facility]) [address] [facility], [place], [address], 12/27/2023 03:08:46 12/26/19 24 12/26/2023 CBC WITH DIFFE RENTI AL/PL ATELE T hematocrit 43.6 % 37.5-5 1.0 Not Available [facility] ([facility]) [address] [place], [address], 12/27/2023 03:08:46 12/26/19 24 12/26/2023 CBC WITH DIFFE RENTI AL/PL ATELE T MCV 98 fL 79-97 above high normal Not Available [facility] ([facility]) [address] [place], [address], 12/27/2023 03:08:46 12/26/19 24 12/26/2023 CBC WITH DIFFE RENTI AL/PL ATELE T MCH 32.4 pg 26.6-3 3.0 Not Available [facility] ([facility]) [address] [place], [address], 12/27/2023 03:08:46 12/26/19 24 12/26/2023 CBC WITH DIFFE RENTI AL/PL ATELE T MCHC 33.3 g/dL 31.5-3 5.7 Not Available [facility] ([facility]) [address] [facility], [place], [address], 12/27/2023 03:08:46 12/26/19 24 12/26/2023 CBC WITH DIFFE RENTI AL/PL ATELE T RDW 12.3 % 11.6-1 5.4 Not Available [facility] ([facility]) [address] [facility], [place], [address], 12/27/2023 03:08:46 12/26/19 24 12/26/2023 CBC WITH DIFFE RENTI AL/PL ATELE T platelets 339 x10e3 /uL 150-45 0 Not Available [facility] ([facility]) [address] [facility], [place], [address], 12/27/2023 03:08:46 12/26/19 24 12/26/2023 CBC WITH DIFFE RENTI AL/PL ATELE T neutrophils 67 % notest ab. Not Available [facility] ([facility]) [address] [facility], [place], [address], 12/27/2023 03:08:46 12/26/19 24 12/26/2023 CBC WITH DIFFE RENTI AL/PL ATELE T lymphs 22 % notest ab. Not Available [facility] ([facility]) [address] [facility], [place], [address], 12/27/2023 03:08:46 12/26/19 24 12/26/2023 CBC WITH DIFFE RENTI AL/PL ATELE T monocytes 8 % notest ab. Not Available [facility] ([facility]) [address] [facility], [place], [address], 12/27/2023 03:08:46 12/26/19 24 12/26/2023 CBC WITH DIFFE RENTI AL/PL ATELE T eos 2 % notest ab. Not Available [facility] ([facility]) [address] [facility], [place], [address], 12/27/2023 03:08:46 12/26/19 24 12/26/2023 CBC WITH DIFFE RENTI AL/PL ATELE T basos 1 % notest ab. Not Available [facility] ([facility]) [address] [facility], [place], [address], 12/27/2023 03:08:46 12/26/19 24 12/26/2023 CBC WITH DIFFE RENTI AL/PL ATELE T neutrophils (absolute) 6.0 x10e3 /uL 1.4-7. 0 Not Available [facility] ([facility]) [address] [facility], [place], [address], 12/27/2023 03:08:46 12/26/19 24 12/26/2023 CBC WITH DIFFE RENTI AL/PL ATELE T lymphs (absolute) 2.0 x10e3 /uL 0.7-3. 1 Not Available [facility] ([facility]) [address] [facility], [place], [address], 12/27/2023 03:08:46 12/26/19 24 12/26/2023 CBC WITH DIFFE RENTI AL/PL ATELE T monocytes(ab solute) 0.7 x10e3 /uL 0.1-0. 9 Not Available [facility] ([facility]) [address] [facility], [place], [address], 12/27/2023 03:08:46 12/26/19 24 12/26/2023 CBC WITH DIFFE RENTI AL/PL ATELE T eos (absolute) 0.2 x10e3 /uL 0.0-0. 4 Not Available [facility] ([facility]) [address] [place], [id number], 12/27/2023 03:08:46 12/26/19 24 12/26/2023 CBC WITH DIFFE RENTI AL/PL ATELE T baso (absolute) 0.1 x10e3 /uL 0.0-0. 2 Not Available [facility] ([facility]) [address] [facility], [place], [address], 12/27/2023 03:08:46 12/26/19 24 12/26/2023 CBC WITH DIFFE RENTI AL/PL ATELE T immature granulocytes 0 % notest ab. Not Available [facility] ([facility]) [address] [facility], [place], [address], 12/27/2023 03:08:46 12/26/19 24 12/26/2023 CBC WITH DIFFE RENTI AL/PL ATELE T immature grans (abs) 0.0 x10e3 /uL 0.0-0. 1 Not Available [facility] ([facility]) [address] [facility], [place], [address], 12/27/2023 03:08:46 Result Notes None recorded. Problems Name Problem SNOMED Code Status Onset Date Resolution Date Notes Provider Name and Address Organization Details Recorded Time Chronic obstructive pulmonary disease 65172229 Active 2023 Dennise Odell MD Attn: Jaylyn sun,[address] [facility], [place], [address], [facility] [place] 4 11:26:50 Essential hypertension 95868768 Active Dennise Odell MD Attn: Jaylyn sun,[address] [facility], [place], [address], [facility] [place] 2 09:19:01 Schizoaffect tommie disorder 08636990 Active psych Dennise Odell MD Attn: Jaylyn sun,[address] [facility], [place], [address], [facility] 2 09:19:01 Alcoholism 5006261 Active in remiss ion-ps h Dennise Odell MD Attn: Jaylyn sun,[address] [facility], [place], [address], [facility] 8 11:38:47 Tachycardia 3770638 Active Dennise Odell MD Attn: Jaylyn sun,[address] [facility], [place], [address], [place] [facility] 6 15:55:16 Acute bronchitis 09054216 Completed 05/20/2016 Dennise Odell MD Attn: Jaylyn sun,[address] [facility], [place], [address], [place] [facility] 7 12:10:42 Hyperglycemi a 78088809 Active Dennise Odell MD Attn: Jaylyn sun,[address] [facility], [place], [address], [place] [facility] 2 09:19:01 Smoker 38934951 Active 2016 Dennise Odell MD Attn: Jaylyn sun,[address] [facility], [place], [address], [facility] - [facility] 2 09:19:01 Problem Notes None recorded. Medical Equipment None Reported. Allergies Allergen ID Allergen Name Allergen Category Reaction Reaction Severity Criticality Documentation Date Start Date Code Code System Note Provider Name and Address Organization Details Recorded Time 11056 Substance with sulfonami de structure and antibacte rial mechanism of action (substanc e) medicatio n rash severe Not available 06/25/2014 62322 8003 SNOMED Not Available Not Available Not Available 83572 lisinopri l medicatio n angioedem a Not available Not available 07/04/2014 34073 RxNorm lip swell ing Not Available Not Available Not Available Medications Name Sig Start Date Stop Date Status Note LastModified by Organization Details LastModified Time verapamil ER (SR) 120 mg tablet,ex tended release TAKE ONE TABLET BY MOUTH ONE TIME DAILY WITH 240MG TABLET(T OTAL OF 360MG) 08/26 completed Not Available Not Available Not Available losartan 50 mg tablet TAKE 1 TABLET BY MOUTH EVERY DAY 2023 active Not Available Not Available Not Avai lable amoxicill in 500 mg capsule TAKE 1 CAPSULE BY MOUTH EVERY 8 HOURS FOR 7 DAYS active Not Available Not Available No t Available clonidine HCl 0.1 mg tablet 05/20 completed Not Available Not Available Not Available cetirizin e 10 mg tablet TAKE 1 TABLET BY MOUTH EVERY DAY active Not Available Not Available No t Available azithromy damir 250 mg tablet TAKE 2 TABLETS (500 MG) BY ORAL ROUTE ONCE DAILY FOR 1 DAY THEN 1 TABLET (250 MG) BY ORAL ROUTE ONCE DAILY FOR 4 DAYS 05/20 completed Not Available Not Available Not Available benzonata te 200 mg capsule TAKE 1 CAPSULE BY MOUTH THREE TIMES DAILY NEEDED 05/29 completed Not Available Not Available Not Available naltrexon e 50 mg tablet Take 1 tablet every day by oral route for 30 days. 10/01 completed pt is not taking this med since 08/25 Not Available Not Available Not Available prednison e 20 mg tablet active Not Available Not Available Not Available verapamil ER (SR) 180 mg tablet,ex tended release TAKE ONE TABLET BY MOUTH EVERY DAY 05/20 completed Not Available Not Available Not Available thiamine HCl (vitamin B1) 100 mg tablet Take 1 tablet every day by oral route. 09/26 completed Not Available Not Available Not Available haloperid ol 1 mg tablet active Not Available Not Available Not Available amlodipin e 5 mg tablet Take 1 tablet(s ) every day by oral route. active Not Available Not Available No t Available risperido ne 3 mg tablet active Not Available Not Available Not Available amoxicill in 500 mg tablet TAKE 1 TABLET BY MOUTH EVERY 8 HOURS FOR 7 DAYS 05/29 completed Not Available Not Available Not Available risperido ne 2 mg tablet TK 1 T PO BID 02/24 completed decrease d to 1 mg Not Available Not Available Not Available chlordiaz epoxide 25 mg capsule 07/29 completed Not Available Not Available Not Available cephalexi n 500 mg capsule TAKE 1 CAPSULE BY MOUTH THREE TIMES DAILY FOR 5 DAYS 10/19 completed Not Available Not Available Not Available ranitidin e 150 mg tablet TAKE 1 TABLET BY MOUTH TWICE DAILY active Not Available Not Available No t Available buspirone 10 mg tablet TAKE 1 TABLET BY MOUTH TWICE DAILY 05/29 completed not takng Not Available Not Available Not Available lisinopri l 10 mg tablet Take 1 tablet every day by oral route. 07/04 completed lip swelling Not Available Not Available Not Available prednison e 50 mg tablet active Not Available Not Available Not Available fluoxetin e 10 mg capsule TAKE 1 CAPSULE BY MOUTH EVERY MORNING active Not Available Not Available No t Available verapamil ER (SR) 240 mg tablet,ex tended release TAKE 2 TABLETS BY MOUTH EVERY DAY 2023 active Not Available Not Available Not Avai lable lisinopri l 5 mg tablet active Not Available Not Available Not Available mupirocin 2 % topical ointment APPLY TOPICALL Y TO THE AFFECTED AREA THREE TIMES DAILY 08/27 completed Not Available Not Available Not Available polyethyl yue glycol 3350 17 gram/dose oral powder 07/29 completed Not Available Not Available Not Available methylpre dnisolone 4 mg tablets in a dose pack active Not Available Not Available Not Available albuterol sulfate HFA 90 mcg/actua tion aerosol inhaler Inhale 2 puffs 3 times a day by inhalati on route as needed. 11/20 completed not using Not Available Not Available Not Available losartan 100 mg tablet TAKE 1 TABLET BY MOUTH EVERY DAY 11/20 completed pt not taking Not Available Not Available Not Available fluoxetin e 20 mg capsule TAKE 1 CAPSULE BY MOUTH EVERY DAY active Not Available Not Available No t Available fluticaso ne propionat e 50 mcg/actua tion nasal spray,robert pension active Not Available Not Available Not Available risperido ne 1 mg tablet TAKE 1 TABLET BY MOUTH TWICE DAILY active Not Available Not Available No t Available amoxicill in 875 mg-potass ium clavulana te 125 mg tablet TAKE 1 TABLET BY MOUTH EVERY 12 HOURS 08/27 completed Not Available Not Available Not Available verapamil ER 120 mg 24 hr capsule,e xtended release Take by oral route. 09/26 completed changed to tablet due to insuranc e coverage Not Available Not Available Not Available buspirone 15 mg tablet take 1-2 tablets daily as needed active Not Available Not Available No t Available acamprosa te 333 mg tablet,de layed release 01/13 completed Not Available Not Available Not Available Invega 1.5 mg tablet,ex tended release active Not Available Not Available Not Available Incruse Ellipta 62.5 mcg/actua tion powder for inhalatio n USE 1 INHALATI ON BY MOUTH ONCE DAILY 11/20 completed not using Not Available Not Available Not Available Vitals Date Recorded Body height Body mass index (BMI) Body weight Heart rate Respiratory rate Body temperature Oxygen saturation Oxygen saturation in Arterial blood by Pulse oximetry Systolic blood pressure Diastolic blood pressure Provider Name and Address Organization Details Last Updated DateTime 3 172.72 cm 29.3 kg/m2 08374.1 7 g 84 /min 14 /min 97.5 [degF] 98 % 98 % 138 mm[Hg] 76 mm[Hg] Patt Phillip [place] [facility] 3 09:07:40 Date Recorded Body height Body mass index (BMI) Body weight Heart rate Respiratory rate Body temperature Oxygen saturation Oxygen saturation in Arterial blood by Pulse oximetry Systolic blood pressure Diastolic blood pressure Provider Name and Address Organization Details Last Updated DateTime 4 172.72 cm 29.2 kg/m2 20226.0 9 g 100 /min 14 /min 97.3 [degF] 99 % 99 % 152 mm[Hg] 70 mm[Hg] Patt Phillip MA [facility] 4 11:11:51 Date Recorded Body height Body mass index (BMI) Body weight Heart rate Respiratory rate Body temperature Oxygen saturation Oxygen saturation in Arterial blood by Pulse oximetry Systolic blood pressure Diastolic blood pressure Provider Name and Address Organization Details Last Updated DateTime 4 172.72 cm 29.4 kg/m2 65946.4 1 g 83 /min 14 /min 97.3 [degF] 96 % 96 % 125 mm[Hg] 78 mm[Hg] Patt Phillip [place] [facility] 4 09:27:58 Date Recorded Body height Body mass index (BMI) Body weight Heart rate Respiratory rate Body temperature Oxygen saturation Oxygen saturation in Arterial blood by Pulse oximetry Systolic blood pressure Diastolic blood pressure Provider Name and Address Organization Details Last Updated DateTime 4 172.72 cm 27 kg/m2 02557.3 6 g 97 /min 14 /min 97.2 [degF] 97 % 97 % 124 mm[Hg] 81 mm[Hg] Patt Phillip MA [facility] 4 09:20:39 Date Recorded Body height Body mass index (BMI) Body weight Heart rate Respiratory rate Body temperature Oxygen saturation Oxygen saturation in Arterial blood by Pulse oximetry Systolic blood pressure Diastolic blood pressure Provider Name and Address Organization Details Last Updated DateTime 4 172.72 cm 26.6 kg/m2 10189.0 2 g 88 /min 14 /min 97.5 [degF] 97 % 97 % 125 mm[Hg] 73 mm[Hg] Patt Phillip [place] [facility] 4 11:16:44 Social History Question Answer Notes LastModified by Organizat ion Details LastModified Time Tobacco Smoking Status Current Every Day Smoker Elyse Sampson [place] null, [place] [facility] 06/25/2014 14:16:18 What Is Your Level Of Alcohol Consumption? Moderate Information not available 11/21/2023 Are You Blind Or Do You Have Difficulty Seeing? Yes Glasses Information not available 04/29/2021 What Is Your Level Of Caffeine Consumption? Moderate Coffee Information not available 07/18/2023 How Much Tobacco Do You Chew? None Information not available 12/01/2015 In The 14 Days Before Symptom Onset, Have You Had Close Contact With A Laboratory-confir med COVID-19 While That Case Was Ill? No Information not available 10/16/2019 In The 14 Days Before Symptom Onset, Have You Had Close Contact With A Person Who Is Under Investigation For COVID-19 While That Person Was Ill? No Information not available 10/16/2019 Have You Been To An Area Known To Be High Risk For COVID-19? No Information not available 10/16/2019 Are You Currently Employed? No [email or web address] Information not available 06/26/2020 Are You Deaf Or Do You Have Serious Difficulty Hearing? No [email or web address] Information not available 06/26/2020 What Type Of Diet Are You Following? REGULAR Information not available 12/01/2015 Which Illicit Or Recreational Drugs Have You Used? Denies Information not available 12/01/2015 Do You Or Have You Ever Used E-cigarettes Or Vape? Never Used Electronic Cigarettes [email or web address] Information not available 05/11/2019 Education 12 Information no t available 01/13/2017 What Is The Highest Grade Or Level Of School You Have Completed Or The Highest Degree You Have Received? [id number] [email or web address] Information not available 06/26/2020 What Is Your Occupation? Unemployed Information not available 01/13/2017 Are There Any Guns Present In Your Home? Yes Information not available 09/26/2018 Marital Status Single Informatio n not available 12/01/2015 What Was The Date Of Your Most Recent Tobacco Screening? 02/07/2024 Information not available 02/07/2024 What Is Your Relationship Status? Single [email or web address] Information not available 06/26/2020 Do You Use Your Seat Belt Or Car Seat Routinely? Yes Information not available 06/26/2020 Seat Belts Used Routinely Yes Information not available 09/26/2018 Smoke Alarm In Home Yes [email or web address] Information not available 05/11/2019 Do You Have Smoke And Carbon Monoxide Detectors In Your Home? Yes [email or web address] Information not available 06/26/2020 At What Age Did You Start Smoking Tobacco? 20 Information not available 09/26/2018 Do You Or Have You Ever Used Smokeless Tobacco? Never Used Smokeless Tobacco [email or web address] Information not available 05/11/2019 How Much Tobacco Do You Smoke? 1 PPD [email or web address] Information not available 05/29/2021 General Stress Level Medium Information not available 02/25/2020 Do You Feel Stressed (tense, Restless, Nervous, Or Anxious, Or Unable To Sleep At Night)? [id number] Information not available 08/27/2021 Do You Use Any Illicit Or Recreational Drugs? No [email or web address] Information not available 06/26/2020 Do You Use Sunscreen Routinely? Yes Information not available 09/26/2018 Has Tobacco Cessation Counseling Been Provided? Yes [email or web address] Information not available 08/18/2022 On What Date Was Tobacco Cessation Counseling Provided? 02/07/2024 Information not available 02/07/2024 How Many Years Have You Smoked Tobacco? 25 03/08/22 Information not available 03/08/2022 Do You Or Have You Ever Used Any Other Forms Of Tobacco Or Nicotine? No [email or web address] Information not available 06/26/2020 Sex: Male Functional Status Question Answer Note LastModified by Organizat ion Details LastModified Time Are you able to care for yourself? Yes [email or web address] Information not available 06/26/2020 What is your exercise level? None yard work Information not available 10/19/2022 Mental Status None recorded. Family History Relationship Description Onset Age of this Age Resolved Age Notes LastModified by Organization Details LastModified Time Maternal Grandmother Malignant neoplasm of bone Not available 2015 15:16:34 Father Arthritis Not available 12/01/2015 15:16:34 Mother Moderate chronic obstructive pulmonary disease Not available 2015 15:16:34 Medical History Condition Response Coronary Artery Disease N Atrial Fibrillation N High Blood Pressure Y Thyroid Problems N Kidney or Bladder Problems N Depression Y COPD N Blood Clots N GI Problems N Skin Problems N Anemia N Heart Attack ([place]) N Diabetes N Anxiety Disorder Y Muscle, Joint, or Bone Problems N Seizures/Epilepsy N Acid Reflux (GERD) N Cancer N Stroke N Allergies Y Asthma N High Cholesterol N Hepatitis N Liver Disease N Headaches N Osteoporosis N Heart Failure N Immunizations Vaccine Type Date Status Note Provider Nam e and Address Organization Details Recorded Time Tdap 6 completed Not Available [employer] 04/28/2019 02:47:56 SARS-COV-2 (COVID-19) vaccine, UNSPECIFIED 1 completed SHLOMO Guzman, [facility] 10/31/2020 13:24:34 SARS-COV-2 (COVID-19) vaccine, UNSPECIFIED 1 completed SHLOMO Guzman, [facility] 10/31/2020 13:24:48 Past Encounters Encounter ID Performer Location Encounter Start Date Encounter Closed Date Diagnosis/Indication Diagnosis SNOMED-CT Code Diagnosis ICD10 Code Diagnosis Note [id number] MD Tino Dickinson (Adult Med) [address] [place] [address] 06/25/2014 13:42:03 06/25/2014 14:54:55 Essential hypertension 99580694 labs checked by his psych at [place]/[facility]adares Alcocer Schizoaffe ctive disorder 55880232 High risk sexual behavior 993475785 only in the past. pt would like to check for STD. [id number] MD Tino Dickinson (Adult Med) [address] [place] [address] 02/11/2015 08:46:48 02/11/2015 10:19:55 Essential hypertension 47429029 I10 Discontinu ed Lisinopril due to lip sswelling continue Amlodipine Alcoholism 0222850 F10.1 0 pt is seeing psych at [facility] Needs to make f/u apt and also go for AA support gp and meeting check labs Start pt on Thiamine and Ranitidine for GI px Tachycardia 9976589 R00. 0 possibly due to #2 Schizoaffe ctive disorder 37980738 F25.8 per psych at [facility] [id number] Dennise Odell MD [facility] (Adult Med) [address] [place] [address] 04/14/2015 15:42:24 04/15/2015 12:31:30 Essential hypertension 88353190 I10 Discontinu ed Lisinopril due to lip sswelling continue Amlodipine Alcoholism 7234441 F10.1 0 pt is seeing psych at [facility] continue Thiamine and Ranitidine for GI px Tachycardia 1476364 R00. 0 possibly due to #2 [id number] Dennise Odell MD [facility] (Adult Med) [address] [place] [address] 07/14/2015 14:54:09 07/14/2015 15:58:45 Essential hypertension 43562828 I10 Discontinu ed Lisinopril due to lip sswelling Discontinu e Amlodipine start pt on Verapamil Alcoholism 6867525 F10.1 0 pt is seeing psych at [facility] continue Thiamine and Ranitidine for GI px [id number] [facility] [address] [place] [address] 07/28/2015 15:53:11 07/29/2015 11:17:49 Essential hypertension 15091484 I10 [id number] [facility] [address] [place] [address] 08/14/2015 15:01:28 08/15/2015 10:23:05 Essential hypertension 28325225 I10 Discontinu ed Lisinopril due to lip sswelling Discontinu ed Amlodipine Increase Verapamil 180 mg daily Alcoholism 4737670 F10.1 0 pt is seeing psych at [facility] continue Thiamine and Ranitidine for GI px Acute bronchitis 6896342 2 J20.9 pt to quit smoking [id number] [facility] [address] [place] [address] 08/28/2015 15:24:29 08/29/2015 03:47:51 Essential hypertension 86423304 I10 [id number] [facility] [address] [place] [address] 09/29/2015 15:07:20 09/30/2015 10:09:34 Essential hypertension 61851113 I10 Discontinu ed Lisinopril due to lip sswelling Discontinu ed Amlodipine continue Verapamil 180 mg daily Alcoholism 5794966 F10.1 0 pt is seeing psych at [facility] continue Thiamine and Ranitidine for GI px Tachycardia 5426470 R00. 0 continue Verapamil Administra tion of diphtheria, pertussis, and tetanus vaccine 675000167 Z23 [id number] [facility] [address] [place] [address] 12/01/2015 14:53:35 12/01/2015 15:59:57 Essential hypertension 57736149 I10 Discontinu ed Lisinopril due to lip swelling Discontinu ed Amlodipine continue Verapamil 180 mg daily Schizoaffe ctive disorder 57255591 F25.8 with ETOH abuse in remission meds per psych at [facility] [id number] [facility] [address] [place] [address] 05/20/2016 11:46:26 05/20/2016 14:45:17 Essential hypertension 65043193 I10 Discontinu ed Lisinopril due to lip swellingIn crease Verapamil ER 240 mg daily [id number] [facility] [address] [place] [address] 07/29/2016 11:45:50 07/29/2016 14:45:05 Essential hypertension 84095529 I10 Discontinu ed Lisinopril due to lip swellingpt to continue Verapamil ER 240 mg daily- pt is under lots of stress ( seeing psychiatri st ) , does not want to increase verapamil at this time , wants to wait Tachycardia 7733637 R00. 0 continue Verapamil Hyperglycemia 95674779 R 73.9 [id number] MD Pushpa Dickinsonhalto (Adult Med) [address] [place] [address] 10/01/2016 11:25:11 10/01/2016 15:45:23 Essential hypertension 37984632 I10 Discontinu ed Lisinopril due to lip swellingpt to increase Verapamil ER 240 mg daily- pt is under lots of stress ( seeing psychiatri st ) Alcoholism 3766721 F10.1 0 pt is seeing psych at [facility] inue Thiamine and Ranitidine for GI pxpt stopped taking Naltrexone Hyperglycemia 71505793 R 73.9 Schizoaffe ctive disorder 85417522 F25.8 with ETOH abuse in remission meds per psych at [facility] Bronchitis 35730669 J40 [id number] [facility] [address] [place] [address] 01/13/2017 10:53:36 01/13/2017 16:29:49 Essential hypertension 11642537 I10 Discontinu ed Lisinopril due to lip swellingpt to increase Verapamil ER 240 mg daily- pt is under lots of stress ( seeing psychiatri st ) Smoker 44726358 F17.398 [id number] MD Pushpa Dickinsonhalto (Adult Med) [address] [place] [address] 05/19/2017 11:19:56 05/20/2017 16:17:43 Essential hypertension 13838577 I10 Discontinu ed Lisinopril due to lip swellingpt to take Verapamil ER 240 mg with 120 mg daily- pt is under lots of stress ( seeing psychiatri st )Will reassess in 3 month [id number] MD Tino Dickinson (Adult Med) [address] [place] [address] 08/26/2017 11:04:05 08/29/2017 08:11:46 Essential hypertension 83003444 I10 Discontinu ed Lisinopril due to lip swellingpt to increase Verapamil ER 240 mg 2 tab dailypt is under lots of stress ( seeing psychiatri st )Will reassess in 2 month Schizoaffe ctive disorder 54378160 F25.8 with ETOH abuse in remission meds per psych at [facility] [id number] MD Tino Dickinson (Adult Med) [address] [place] [address] 11/10/2017 09:10:56 11/10/2017 15:37:45 Alcoholism 4408455 F10.10 pt restarted drinking alcohol after of his mom ( pancreatic cancer )[facility] and Ranitidine for GI pxpt is not on Naltrexone Schizoaffe ctive disorder 82107523 F25.8 with ETOH abuse in remission meds per psych at [facility] Essential hypertension 06569767 I10 Discontinu ed Lisinopril due to lip swellingpt to continue Verapamil ER 240 mg 2 tab dailypt is under lots of stress ( seeing psychiatri st ) [id number] MD Pushpa Dickinsonhalto (Adult Med) [address] [place] [address] 03/21/2018 10:56:10 03/21/2018 18:12:11 Essential hypertension 42159189 I10 stablept to continue Verapamil ER 240 mg 2 tab dailypt is under lots of stress ( seeing psychiatri st ) Schizoaffe ctive disorder 89073027 F25.8 with ETOH abuse in remission meds per psych at [facility] [id number] MD Pushpa Dickinsonhalto (Adult Med) [address] [place] [address] 09/26/2018 10:24:26 09/28/2018 12:32:19 Essential hypertension 18364306 I10 stablept to continue Verapamil ER 240 mg 2 tab dailypt is under lots of stress ( seeing psychiatri st ) Schizoaffe ctive disorder 73391365 F25.8 with ETOH abuse in remission meds per psych at [facility] Smoker 71440479 F17.317 [id number] MD Pushpa Dickinsonhalto (Adult Med) [address] [place] [address] 05/11/2019 09:15:38 05/11/2019 14:46:49 Essential hypertension 37218901 I10 stablept to continue Verapamil ER 240 mg 2 tab dailypt is under lots of stress ( seeing psychiatri st ) Schizoaffe ctive disorder 30848219 F25.8 with ETOH abuse in remission meds per psych at [facility] Allergic rhinitis 995580 04 J30.9 pt to take otc antihistam ine [id number] MD Tino Dickinson (Adult Med) [address] [place] [address] 10/16/2019 08:05:34 10/19/2019 10:18:53 Essential hypertension 47051967 I10 stablept to continue Verapamil ER 240 mg 2 tab daily . Schizoaffe ctive disorder 99950611 F25.8 with ETOH abuse in remission/ meds per psych at [facility] [id number] MD Pushpa Dickinsonhalto (Adult Med) [address] [place] [address] 02/25/2020 08:25:58 02/26/2020 07:19:50 Essential hypertension 28556315 I10 stablept to continue Verapamil ER 240 mg 2 tab daily . Schizoaffe ctive disorder 27547688 F25.8 with ETOH abuse in remission/ meds per psych at [facility] Smoker 06153710 F17.360 [id number] MD Pushpa Dickinsonhalto (Adult Med) [address] [place] [address] 06/26/2020 08:01:55 06/27/2020 10:47:06 Essential hypertension 59278732 I10 stablept to continue Verapamil ER 240 mg 2 tab daily . Schizoaffe ctive disorder 01620263 F25.8 with ETOH abuse in remission/ meds per psych at [facility] [id number] MD Tino Dickinson (Adult Med) [address] [place] [address] 10/27/2020 10:27:28 10/28/2020 11:03:03 Essential hypertension 10849688 I10 stablept to continue Verapamil ER 240 mg 2 tab daily . Schizoaffe ctive disorder 32898912 F25.8 with ETOH abuse in remission/ meds per psych at [facility] Smoker [id number] F17.362 [id number] MD Tino Dickinson (Adult Med) [address] [place] [address] 04/29/2021 10:11:32 04/30/2021 11:37:14 Upper respiratory infection 83888222 J06.9 -keep good hydration /salt water gargle Smoker [id number] F17.956 [id number] MD Tino Dickinson (Adult Med) [address] [place] [address] 05/29/2021 08:19:53 06/01/2021 08:06:26 Essential hypertension 56030144 I10 stablept to continue Verapamil ER 240 mg 2 tab daily . Schizoaffe ctive disorder 39114275 F25.8 with ETOH abuse in remission/ meds per psych at [facility] Pharyngitis [id number] J0 2.9 -warm salt water gargle /keep good hydration- supportive care - pt to return to clinic if problem persists Renewal of prescription [id number] Z76.0 [id number] MD Tino Dickinson (Adult Med) [address] [place] [address] 08/27/2021 08:55:27 08/28/2021 08:38:04 Essential hypertension 30563979 I10 stablept to continue Verapamil ER 240 mg 2 tab daily . Schizoaffe ctive disorder 91683010 F25.8 with ETOH abuse in remission/ meds per psych at [facility] Obesity 662530919 E66.9 Smoker 93558134 F17.200 Thrombocytosis 0043901 D 75.839 -will monitor lab [id number] MD Tino Dickinson (Adult Med) [address] [place] [address] 03/08/2022 08:40:16 03/09/2022 11:03:35 Essential hypertension 75678461 I10 stablept to continue Verapamil ER 240 mg 2 tab daily . Schizoaffe ctive disorder 90373859 F25.8 with ETOH abuse in remission/ meds per psych at [facility] Smoker 80493489 F17.200 Obesity 401207483 E66.9 Screening for malignant neoplasm of colon 734556984 Z12.11 [id number] MD Pushpa RODRIGUEZhalto ([employer]) [address] [place] [address] 08/18/2022 15:38:16 09/07/2022 15:48:20 Paronychia of finger of left hand [id number] 8170424 L03.012 - Will treat with antibiotic s x7 days- Return to clinic if no improvemen t or worsening symptoms [id number] MD Tino Dickinson (Adult Med) [address] [place] [address] 10/19/2022 08:40:47 10/20/2022 09:46:19 Essential hypertension 51832068 I10 stablept to continue Verapamil ER 240 mg 2 tab daily . Schizoaffe ctive disorder 48156160 F25.8 with ETOH abuse in remission/ meds per psych at [facility] Overweight 745734397 E66 .3 Screening for malignant neoplasm of colon 095937768 Z12.11 pt denied f/h of colon cancer [id number] [facility] [address] [place] [address] 05/23/2023 10:54:04 05/25/2023 12:44:13 Essential hypertension 19378396 I10 -not well controlled pt to continue Verapamil ER 240 mg 2 tab daily-add losartan Schizoaffe ctive disorder 94099572 F25.8 with ETOH abuse in remission/ meds per psych at [facility] Overweight 278225465 E66 .3 Chronic ob structive pulmonary disease 50127160 J44.9 with post nasal drip - start pt on incrusept to take otc antihistam ine like cetirizine Smoker 57306402 F17.748 [id number] MD Pushpa Dickinsonhalto (Adult Med) [address] [place] [address] 07/18/2023 08:59:27 07/20/2023 12:50:12 Essential hypertension 37229705 I10 -improving pt to continue Verapamil ER 240 mg 2 tab daily /losartan 50mg daily ( pt did not tolerate 100mg ) Schizoaffe ctive disorder 63156448 F25.8 with ETOH abuse in remission/ meds per psych at [facility] Overweight 997150920 E66 .3 [id number] MD Tino Dickinson (Adult Med) [address] [place] [address] 11/21/2023 08:57:24 11/22/2023 09:25:19 Essential hypertension 78648159 I10 -improving pt to continue Verapamil ER 240 mg 2 tab daily /losartan 50mg daily ( pt did not tolerate 100mg ) Schizoaffe ctive disorder 38736275 F25.8 with ETOH abuse in remission/ meds per psych at [facility] Screening for malignant neoplasm of colon 571379784 Z12.11 pt denied f/h of colon cancer Smoker 11797232 F17.200 with wt loss-check LDCT if insurance covers -will consider cxr if ldct not covered [id number] [facility] [address] [place] [address] 02/07/2024 10:51:20 02/08/2024 16:06:22 Acute sinusitis 12548312 J01.90 -keep good hydration/ steam inhalation - try to avoid smoking Health Concerns Section Related Observation LastModified by Organization Detai ls LastModified Time None Recorded Concern Status LastModified by Organization Details LastModified Time None Recorded Advance Directives Directive None Recorded Payers Encounter Date Sequence Insurance Name Policy Number Policy Hill Covered Member ID Hill Member ID Guarantor Name 10/19/2022 2 [place] WHEN [place]ARE OR MEDICARE REPLACEMENT PRIMARY) Sergio Gold [id number] Sergio Gold 10/19/[address] [facility] (MEDICARE REPLACEMENT HMO) Sergio Gold [id number] Sergio Gold 05/23/2023 2 [place]IC[place] REPLACEMENT PRIMARY) Sergio Harringtonwler [id number] Sergio Harringtonwler 05/23/2023 1 [employer] [place] (MEDICARE [place]AC[place]) Sergio Harringtonwler [id number] Sergio Harringtonwler 07/18/2023 2 [place]ICARE REPLACEMENT PRIMARY) Sergio Gold [id number] Sergio Harringtonwler 07/18/2023 1 [employer] [place] (MEDICARE [place]AC[place]) Sergio Harringtonwler [id number] Sergio Corbin Gold 11/21/2023 2 [place] OR MEDICARE REPLACEMENT PRIMARY) Sergio Harringtonwler [id number] Sergio Harringtonwler 11/21/2023 1 [facility] ([facility]) Sergio Corbin Alla [id number] Sergio Harringtonwler 02/07/2024 2 [place] OR MEDICARE REPLACEMENT PRIMARY) Sergio Harringtonwler [id number] Sergio Corbin Gold 02/07/[address] [facility] (MEDICARE REPLACEMENT HMO) Sergio Corbin Alla [id number] Sergio Harringtonwler Notes Date Note Type Note Provider Name and Address Organization Details Recorded Time 10/19/2022 text/html pt is also [facility] psychiatrist for schizoaffective disorder , taking meds as prescribed . Dennise Odell MD Attn: [address]ing[address] [place], [address], [facility] [place] 10/19/2022 09:32:05 10/19/2022 text/html Hypertension F/UReported bypatient.Associated Symptoms:no dizziness; no chest pain; no edema Lifestyle:regular exercise; limiting/avoiding salt Medications:taking medications as directed; no side effects from medication Dennise Odell MD Attn: [address]ing[address] [place], [address], [facility] [place] 10/19/2022 09:32:05 05/23/2023 text/html CoughReported bypatient.Quality:dry cough Severity:worsening Duration:symptoms lasting over 2 weeks Context:smoker Associated Symptoms:no fever; no wheezing;post nasal dripHypertension F/UReported bypatient.Associated Symptoms:no dizziness; no chest pain; no edema Lifestyle:regular exercise; limiting/avoiding salt Medications:taking medications as directed; no side effects from medication pt is also seeing psychiatrist for schizoaffective disorder , taking meds as prescribed . Dennise Odell MD Attn: Accounting[address] [place], [address], [facility] 05/23/2023 11:41:51 07/18/2023 text/html Hypertension F/UReported bypatient.Associated Symptoms:no dizziness; no chest pain; no edema Lifestyle:regular exercise; limiting/avoiding salt Medications:taking medications as directed; no side effects from medication pt is also seeing psychiatrist for schizoaffective disorder , taking meds as prescribed . Dennise Odell MD Attn: Accounting[address] [place], [address], [facility] 07/18/2023 09:43:13 11/21/2023 text/html Hypertension F/UReported bypatient.Associated Symptoms:no dizziness; no chest pain; no edema Lifestyle:regular exercise; limiting/avoiding salt Medications:taking medications as directed; no side effects from medication pt is also seeing psychiatrist for schizoaffective disorder , taking meds as prescribed . Dennise Odell MD Attn: Accounting[address] [place], [address], [facility] 11/21/2023 09:37:54 02/07/2024 text/html Upper Respirator y SymptomsReported bypatient.Location:hea d; throat Quality:congested Severity:moderate Duration:symptoms lasting over 2 weeks Context:smoker Associated Symptoms:no shortness of breath; no wheezing;sore throat Dennise Odell MD Attn: Accounting[address] [place], [address], [facility] [place] 02/07/2024 14:10:43
[2024-06-03] MEDS: dilTIAZem HCl INJ 25 MG/5 ML VIAL 10 MG IV PUSH (11:43)
[2024-06-03 11:45] LABS: Hematocrit 35.7 % (42.0-52.0); Hemoglobin 13.1 g/dL (14.0-18.0); Mean Corpuscular HGB Conc 36.7 g/dl (32-36); Mean Corpuscular Hemoglobin 31.1 pg (26-34); Mean Corpuscular Volume 84.8 fl (80-100); Mean Platelet Volume 8.7 fl (7.4-10.4); Platelet Count Result 300 k/mm3 (150-375); Red Blood Count 4.21 M/mm3 (4.6-6.20); Red Cell Distribution Width 11.8 % (11.5-14.5)
[2024-06-03] MEDS: SODIUM CHLORIDE 0.9% IV 1,000 ML 999 ML IV CONT ×2 (11:59→14:18)
[2024-06-03 12:02] LABS: Alanine Aminotransferase 41 U/L (6-50); Albumin Level 3.2 g/dL (3.5-5.1); Alkaline Phosphatase 47 U/L (38-126); Anion Gap 11 mmol/L (4-12); Aspartate Amino Transferase 90 U/L (17-59); Bilirubin,Total 1.1 mg/dL (0.2-1.3); Blood Urea Nitrogen 33 mg/dL (9-20); Calcium 8.6 mg/dL (8.4-10.2); Carbon Dioxide 29 mmol/L (22-30); Chloride 77 mmol/L (98-107); Estimated Glomerular Filt Rate 49; Glucose 145 mg/dL (65-110); Potassium 3.5 mmol/L (3.4-5.0); Sodium 117 mmol/L (137-145)
[2024-06-03 12:03] LABS: INR 1.1
[2024-06-03 12:04] LABS: Partial Thromboplastin Time 27.1 Seconds (22.3-36.8)
--- NOTE | 2024-06-03 12:06 | ECG_ITS ---
Test Date: 2024-06-03 12:10:00 Measurements Intervals [place] Rate: 120 P: 60 MN: 175 QRS: 60 QRSD: 97 T: 50 QT: 328 QTc: 465 Interpretive Statements SINUS TACHYCARDIA WITH ATRIAL TRIPLET, ATRIAL COUPLET AND FREQUENT ATRIAL AND VENTRICULAR PREMATURE COMPLEXES ST ELEVATION IN ANTERIOR LEADS- CONSIDER INJURY, PERICARDITIS OR EARLY REPOLARIZATION BASELINE ARTIFACT- I, III, AVR, AVL, AVF, V1-V6 ABNORMAL ECG Compared to ECG 06/03/2024 11:57:15 NO SIGNIFICANT CHANGE Electronically Signed On 06-03-2024 16:50:55 SECOND CUTTER by Merrick Alford D.O.
[2024-06-03 12:07] LABS: NT Pro B Type Natriuretic Pept 4190 pg/mL (19.9-100); Troponin I < 0.012 ng/mL (0.000-0.034)
--- NOTE | 2024-06-03 12:09 | PC.NURSE ---
lab called to add on magnesium and tsh
[2024-06-03] MEDS: HEPARIN SODIUM 5,000 UNITS/ML VIAL 4000 UNITS IV PUSH (12:11)
--- NOTE | 2024-06-03 12:15 | PC.NURSE ---
Chest xray completed, pt complaining of gastric reflux/burning abd pain and now has hiccups. aware.
--- NOTE | 2024-06-03 12:20 | ED.GENADULT ---
HPI - General Adult General Chief complaint: Shortness of Breath/Dyspnea Stated complaint: dyspnea History of Present Illness HPI narrative: 49-year-old male present to the emergency department for evaluation for AFib with RVR and respiratory distress. Patient was found to be saturating at 50% and his fci cell. Patient was placed on 15 L by non-rebreather and transferred by EMS to the emergency department. Upon to the arrival emergency department patient was alert and had a stable blood pressure. Patient was denying any chest pain. Related Data Allergies Allergy/AdvReac Type Severity Reaction Status Date / Time Sulfa (Sulfonamide Allergy rash Verified 06/03/24 12:19 Antibiotics) Review of Systems Review of Systems: ROS unobtainable: Yes unobtainable due to medical condition PMFSH Past Medical History Medical History (Updated 06/03/24 @ 19:43 by Odalis Perez PA-C) Alcohol abuse Tobacco abuse Schizophrenia Hypertension Social History Social History (Updated 06/03/24 @ 19:37 by Odalis Perez PA-C) Social History: Surrogate medical decision maker: Kaveh Gold, father ([phone]). Code status: Do not resuscitate. Smoking status: Heavy tobacco smoker Alcohol intake: current Additional living arrangements comments: Up until recently was living in an apartment above the dad's garage. He has 1 brother. No children. Additional occupation/education comments: On disability due to mental health conditions. Exam Narrative: APPEARANCE: Ill-appearing HEAD: normocephalic, atraumatic. EYES: PERRLA/EOMI, conjunctivae clear. NOSE: Normal no drainage EARS:TMS clear with good light reflex. THROAT: Pharynx clear, no exudate. NECK: Supple. No adenopathy, no masses. RESPIRATORY: Airway patent, respirations nonlabored. Clear to auscultation bilaterally, no rales, rhonchi, wheezing. CARDIOVASCULAR: AFib with RVR ABDOMINAL: Soft, nontender, nondistended, normal bowel sounds MUSCULOSKELETAL: Moves all extremities. Strength/ROM intact, No edema, No calf tenderness. NEURO: Alert. Cranial nerves II through XII intact. Good gait. Good coordination SKIN: Warm, dry. Normal Color Course Vital Signs Vital signs: Vital Signs Pulse Rate 209 H 06/03/24 11:28 Respiratory Rate 51 H 06/03/24 11:28 Blood Pressure 121/62 06/03/24 11:28 Pulse Oximetry 86 L 06/03/24 11:28 Oxygen Delivery Non-Rebreather Mask 06/03/24 11:28 Oxygen Flow Rate 15 06/03/24 11:28 Temperature 97.8 F 06/03/24 11:49 Pulse Rate 131 H 06/03/24 18:57 Respiratory Rate 24 H 06/03/24 18:57 Blood Pressure 99/70 L 06/03/24 18:48 Pulse Oximetry 95 06/03/24 18:57 Oxygen Delivery Mechanical Ventilation 06/03/24 18:30 Oxygen Flow Rate 15 06/03/24 11:28 Fraction of Inspired Oxygen 100 06/03/24 18:57 Procedures Intubation Intubation #1: Time out performed: Yes sedative: Etomidate Mg Given: 20 paralytic: Succinylcholine Mg Given: 100 Laryngoscope: César Assist Device Used: fiber optic device Tube Size (cm): 7.5 Method of Intubation: orotracheal Number of Attempts: 1 Tube Secured Depth (cm): 23 Tube Secured Location: teeth Tube Placement Confirmation: visualized tube passing through cords, equal breath sounds bilaterally, no breath sounds over epigastrium and confirmation by capnometry Patient Tolerated Procedure: well Intubation Complications: none Medical Decision Making MDM Narrative Medical decision making narrative: 49-year-old male presents emergency department for evaluation for hypoxia and respiratory distress. Patient was saturating poorly at 15 L of oxygen by non-rebreather and was transitioned to BiPAP. Patient's heart rate was initially 209 with AFib with RVR. Attempted Lopressor since the patient was alert and a stable blood pressure. This did bring the patient's heart rate down to 170s. After dose of Cardizem patient heart rate was still in the 160s but patient's blood pressure dropped. Patient was cardioverted with synchronized cardioversion at 200 joules and patient did return to what appears to be a sinus tachycardia with multiple PVCs. Cardiology was consulted and they did not feel that this was an acute STEMI. EKG was repeated 10 minutes after the initial return to normal sinus rhythm and cardiology review that EKG as well and did not feel this was an acute STEMI. They did recommend anticoagulation for the patient. Patient was started on heparin bolus and heparin infusion will also be started. Patient's sodium was found to be 117 and patient did receive a L of IV fluids. Patient became more tachypneic prior to going to the floor and patient was intubated. Chest x-ray was concerning for pneumonia versus pulmonary infarct, CTA PE study was ordered. Patient was started on cefepime and vanc with blood cultures pending. Did this preferred to have a noncontrast CT of the chest and this was done as the patient was going to the ICU. Differential Diagnosis Differential Diagnosis: Pneumonia, pulmonary embolism, COVID, RSV, influenza, AFib, a flutter, STEMI Vital Signs Vital Signs: Vital Signs Pulse Rate 209 H 06/03/24 11:28 Respiratory Rate 51 H 06/03/24 11:28 Blood Pressure 121/62 06/03/24 11:28 Pulse Oximetry 86 L 06/03/24 11:28 Oxygen Delivery Non-Rebreather Mask 06/03/24 11:28 Oxygen Flow Rate 15 06/03/24 11:28 Temperature 97.8 F 06/03/24 11:49 Pulse Rate 131 H 06/03/24 18:57 Respiratory Rate 24 H 06/03/24 18:57 Blood Pressure 99/70 L 06/03/24 18:48 Pulse Oximetry 95 06/03/24 18:57 Oxygen Delivery Mechanical Ventilation 06/03/24 18:30 Oxygen Flow Rate 15 06/03/24 11:28 Fraction of Inspired Oxygen 100 06/03/24 18:57 Lab Data Lab results reviewed: Yes I reviewed the patient's lab results. 06/03/24 11:36 06/03/24 18:19 Labs: Lab Results 06/03/24 06/03/24 06/03/24 Range/Units 11:36 12:50 13:34 WBC 14.0 H (4.5-10.0) K/mm3 RBC 4.21 L (4.6-6.20) M/mm3 Hgb 13.1 L (14.0-18.0) g/dL Hct 35.7 L (42.0-52.0) % MCV 84.8 (80-100) fl MCH 31.1 (26-34) pg MCHC 36.7 H (32-36) g/dl RDW 11.8 (11.5-14.5) % Plt Count 300 (150-375) k/mm3 MPV 8.7 (7.4-10.4) fl Immature Gran % (Auto) Not Reportable Neut % (Auto) Not Reportable Lymph % (Auto) Not Reportable [place] % (Auto) Not Reportable Eos % (Auto) Not Reportable Baso % (Auto) Not Reportable Lymph # (Auto) Not Reportable [place] # (Auto) Not Reportable Eos # (Auto) Not Reportable Baso # (Auto) Not Reportable Abs Immat Gran (auto) Not Reportable Absolute Neuts (auto) Not Reportable Absolute Nucleated RBC Not Reportable Total Counted 100 Neutrophils % (Manual) 81 H (46-73) % Band Neutrophils % 14 H (0-6) % Lymphocytes % (Manual) 5 L (18-44) % Monocytes % (Manual) 0 L (3-9) % Nucleated RBC % Not Reportable Abs Neuts (Manual) 13.30 H (1.3-6.7) K/mm3 Abs Lymphs (Manual) 0.70 L (1.1-4.5) K/mm3 Abs Monocytes (Manual) 0.00 L (0.1-0.90) K/mm3 Atypical Lymphocytes Present Dohle Bodies Present Platelet Estimate Adequate (Adequate) Schistocytes None seen PT 14.0 (11.1-14.7) Seconds INR 1.1 APTT 27.1 (22.3-36.8) Seconds Methemoglobin 0.3 (0-1.5) %THb Expiratory Pressure 7 CMH2O Inspiratory Pressure 14 CMH2O Sodium 117 L* (137-145) mmol/L Potassium 3.5 (3.4-5.0) mmol/L Chloride 77 L (98-107) mmol/L Carbon Dioxide 29 (22-30) mmol/L Anion Gap 11 (4-12) mmol/L BUN 33 H (9-20) mg/dL Creatinine 1.54 H (0.7-1.3) mg/dL Estim Creat Clear Calc Not Reportable Estimated GFR 49 L (59 - ) Glucose 145 H (65-110) mg/dL Calcium 8.6 (8.4-10.2) mg/dL Magnesium 1.9 (1.6-2.3) mg/dL Total Bilirubin 1.1 (0.2-1.3) mg/dL AST 90 H (17-59) U/L ALT 41 (6-50) U/L Alkaline Phosphatase 47 (38-126) U/L Troponin I < 0.012 (0.000-0.034) ng/mL NT-Pro-B Natriuret Pep 4190 H (19.9-100) pg/mL Total Protein 7.0 (6.3-8.2) g/dL Albumin 3.2 L (3.5-5.1) g/dL TSH (Reflex) 2.790 (0.465-4.68) uIU/mL Nasal MRSA (PCR) Not detected (NOT DETECTE) Influenza A (RT-PCR) Positive A (Negative) Influenza B (RT-PCR) Negative (Negative) RSV (RT-PCR) Negative (Negative) SARS-CoV-2 RNA (RT-PCR) Negative (Negative) ABG Data ABG results: 06/03/24 12:50 Puncture Site Right radial ABG pH 7.503 H* ABG pCO2 29.5 L ABG pO2 67.2 L ABG PO2/FiO2 Ratio 0.75 ABG HCO3 22.6 ABG O2 Saturation 95.1 ABG O2 Content 16.6 ABG Base Excess 0.4 A-a Gradient 544.3 Oxyhemoglobin 93.3 Carboxyhemoglobin 0.3 Reduced Hemoglobin 6.1 H Total Hemoglobin 12.6 O2 Delivery Device Non-invasive vent O2 Liters/Min Not Reportable Vent Rate 12 FiO2 90 Imaging Data Radiologist's impression: Impressions Chest X-Ray 06/03/24 12:44 IMPRESSION: 1. Bilateral pneumonia. Critical Care Time Critical Care Time Critical Care Time: Yes Total Critical Care Time: 50 Discharge Plan Discharge Clinical Impression: Elevated brain natriuretic peptide (BNP) level, Sepsis, Hyponatremia, Atrial fibrillation with RVR, Multifocal pneumonia, Influenza A Patient Disposition: Still a Patient Condition: Critical
[2024-06-03 12:29] LABS: Band Neutrophils Percent 14 % (0-6); Lymphocytes Percent Manual 5 % (18-44); Monocytes Percent Manual 0 % (3-9); Neutrophils Percent Manual 81 % (46-73); Total Cells Counted 100
[2024-06-03 12:30] LABS: Platelet Estimate Adequate (Adequate)
[2024-06-03 12:32] LABS: Dohle Bodies Present; Schistocytes None Seen
[2024-06-03 12:34] LABS: Atypical Lymphocytes Present; Magnesium 1.9 mg/dL (1.6-2.3)
[2024-06-03] MEDS: LORazepam INJ (*CRX) 2 MG/ML VIAL 0.5 MG IV PUSH (12:40)
[2024-06-03] MEDS: HEPARIN SODIUM 5,000 UNITS/ML VIAL 2000 UNITS IV PUSH (12:51)
[2024-06-03] MEDS: HEPARIN SOD/D5W 100 UNITS/ML 25,000 UNITS/250 ML BAG 13 UNITS IV CONT (12:52)
[2024-06-03 12:54] LABS: Alveolar/Arterial O2 Gradient 544.3 mmHg; Base Excess ABG 0.4 mEq/l (+/-2.0); Carboxyhemoglobin 0.3 % THb (0-2.0); Fractional Inspired Oxygen 90 %; HCO3 ABG 22.6 mEq/l (22.0-26.0); Methemoglobin ABG 0.3 %THb (0-1.5); Oxygen Content ABG 16.6 %vol (16.0-22.0); Oxygen Saturation ABG 95.1 % (95.0-100.0); Oxyhemoglobin 93.3 % THb (90.0-100.0); PCO2 ABG 29.5 mmHg (35.0-45.0); PO2 ABG 67.2 mmHg (80.0-100.0); PO2 FiO2 Ratio Arterial Blood 0.75 %; Reduced Hemoglobin 6.1 %THb (0-5.0); Total Hemoglobin 12.6 g/dL (12.0-18.0)
[2024-06-03 12:57] LABS: Device NON-INVASIVE VENT; pH ABG 7.503 (7.350-7.450)
[2024-06-03 12:58] LABS: Site Drawn RIGHT RADIAL
[2024-06-03] MEDS: CEFEPIME 1 GM/NS 50 ML 1 GM/50 ML BAG IVPB ×2 (12:58→21:44)
[2024-06-03 12:59] LABS: Non-Invasive Expiratory Pressure 7 CMH2O; Non-Invasive Inspiratory Pressure 14 CMH2O; Non-Invasive Vent Rate 12 /MIN
--- NOTE | 2024-06-03 13:40 | P.HP_ITS ---
H&P: HPI History of Present Illness Date/Time: 06/03/24 13:40 Chief Complaint: Abnormal vital signs. Narrative: This is a 49-year-old male smoker with history of hypertension, schizophrenia, suicide attempt, depression, and possible alcohol abuse who presented to the emergency department via EMS from [facility] after he was found to have abnormal vital signs. He is sedated and on mechanical ventilation at the time my evaluation and all of the following history is obtained via a review of his electronic medical record as well as information provided by his father, Kaveh. The patient is on disability due to his mental health problems and up until recently he had been living in an apartment above his father's garage. Sometime in April he was placed in [facility] and he was apparently released ?to a residential,? or that is what staff told his father, about a week ago and and within a couple of days the patient was arrested for attempting to get in people's vehicles. It is my understanding that there was some sort of altercation with police and he has been in senior living since that time. The patient called his father at the time he arrived to senior living but refused to see his father several days ago when he came for the patient's arrangement. Kaveh has not heard any further updates and did not know the patient had been taken to the hospital until he received a phone call from nursing staff once he was admitted to the ICU. Today staff at the senior living found him unwell with an SpO2 of 50-60 % on room and emergency services were summoned. No other information was provided by the transferring facility. In the ED: He was alert and oriented on arrival. SpO2 was 87% on 15 L non- rebreather mask with a respiratory rate of 50. He was in rapid atrial fibrillation with a rate of 209 and a stable blood pressure. He received Lopressor IV and Cardizem IV improvement his rates in the 160s to 170s however blood pressure dropped and he underwent successful synchronized cardioversion at 200 joules with return of sinus rhythm with frequent PVCs. Initial EKG shows some ST segment elevation and after consultation with Cardiology he was started on a heparin drip. EKG looked better once he converted to sinus rhythm. Labs were significant for WBC count of 14.0, hemoglobin 13.1 with 14% bands, sodium 117, chloride 77, BUN 33, creatinine 1.54, glucose 145, AST 90, proBNP 4190, troponin less than 0.012. He tested positive for influenza A. ABG showed a pH of 7.503, pCO2 29.5, PO2 67.2, HC03 22.6. CT of the chest, abdomen, and pelvis showed dense bilateral pulmonary infiltrates, loculated dense effusion in the left upper lobe (similar to 1 might see with adjacent fracture though not visualized as exam is limited due to respiratory artifact), hepatosplenomegaly, and free fluid within the deep pelvis (there were no signs of external trauma and father is unaware if he has had any recent trauma). The patient's father is unaware if he has had any recent trauma. He was started on antibiotics and was admitted to the ICU. In the ICU: He was hypotensive with blood pressures as low as 66/44 on arrival and heart rates in the 120s. He remained hypoxic despite been changes including a PEEP of 12. Propofol was discontinued and he was placed on fentanyl and midazolam for sedation however he remained hypotensive and a central line was inserted and he has been started on norepinephrine. He was started on neuromuscular blockade and has been placed in a prone position with improvement in his oxygenation. He is on broad-spectrum antibiotics to include cefepime, doxycycline, and vancomycin. He has also been started on oseltamivir. Review of Systems Review of Systems: Unable to obtain given clinical condition. [facility] Past Medical History Medical History Alcohol abuse Tobacco abuse Schizophrenia Hypertension Social History Social History Social History: Surrogate medical decision maker: Kaveh Gold, father ([phone]). Code status: Do not resuscitate. Smoking status: Current every day smoker Additional smoking assessment comments: Unknown how much patient smokes daily Alcohol intake: current Substance use: unknown Additional living arrangements comments: Up until recently was living in an apartment above the dad's garage. He has 1 brother. No children. Additional occupation/education comments: On disability due to mental health conditions. Spiritual care concerns: No Meds Home Medications and Allergies Home Medications ?Medication ?Instructions ?Recorded ?Confirmed ?Type cephalexin 500 mg capsule 500 mg PO Q12H 7 days #14 caps 07/12/21 Rx Allergies Allergy/AdvReac Type Severity Reaction Status Date / Time Sulfa (Sulfonamide Allergy rash Verified 06/03/24 12:19 Antibiotics) Vital Signs Vital Signs - 24 hr 06/03/24 11:28 06/03/24 11:37 06/03/24 11:45 Pulse Rate 209 H 194 H 151 H Respiratory Rate 51 H 58 H Blood Pressure 121/62 Pulse Oximetry 86 L 90 Oxygen Delivery Non-Rebreather Mask BiPAP Oxygen Flow Rate 15 06/03/24 11:54 06/03/24 11:55 06/03/24 12:15 Pulse Rate 110 H 105 H 105 H Respiratory Rate 51 H 49 H 55 H Blood Pressure 86/58 L Pulse Oximetry 92 91 98 Oxygen Delivery BiPAP Oxygen Flow Rate Exam Narrative: General: Acutely ill-appearing male sedated and intubated on mechanical ventilation. Weight: 73.1 kg. BMI: 25.2. HEENT: Normocephalic, atraumatic. PERRL, EOMI. Sclera anicteric. Conjunctiva mildly injected. Dry mucous membranes. Lips are chapped. Neck: Supple. No obvious lymphadenopathy or JVD. Respiratory: Sedated on mechanical ventilation. Now on neuromuscular blockade. Bronchial breath sounds heard on the left anteriorly with scattered coarse crackles. Cardiovascular: Tachycardic with occasional ectopy. Gastrointestinal: Abdomen is soft, nontender, and nondistended with positive bowel sounds. Skin: Warm and dry. No bruising or wounds noted. Extremities: No cyanosis, clubbing, or edema. Radial and pedal pulses intact. Neurological: Initially alert but now more sedated. Cranial nerves 2-12 are grossly intact. No obvious facial asymmetry. Withdrawals to stimuli in all extremities. Psychiatric: Unable to assess at this time. H&P: Results Labs Labs: Short CBC 06/03/24 Range/Units 11:36 WBC 14.0 H (4.5-10.0) K/mm3 Hgb 13.1 L (14.0-18.0) g/dL Hct 35.7 L (42.0-52.0) % Plt Count 300 (150-375) k/mm3 [facility] 06/03/24 11:36 Sodium 117 L* Potassium 3.5 Chloride 77 L Carbon Dioxide 29 BUN 33 H Creatinine 1.54 H Glucose 145 H Calcium 8.6 Cardiac Enzymes 06/03/24 Range/Units 11:36 Troponin I < 0.012 (0.000-0.034) ng/mL Liver Function 06/03/24 Range/Units 11:36 Total Bilirubin 1.1 (0.2-1.3) mg/dL AST 90 H (17-59) U/L ALT 41 (6-50) U/L Alkaline Phosphatase 47 (38-126) U/L Albumin 3.2 L (3.5-5.1) g/dL Impressions Chest X-Ray 06/03/24 12:44 IMPRESSION: 1. Bilateral pneumonia. Chest X-Ray 06/03/24 14:32 IMPRESSION: Endotracheal tube and orogastric tube in good position, and ready for immediate use. Radiograph of the chest is otherwise unchanged. Chest/Abdomen/Pelvis CT 06/03/24 17:44 IMPRESSION: Dense bilateral pulmonary infiltrates. Loculated dense effusion within the left upper lobe, similar to what one might see with an adjacent fracture. Although, significant respiratory artifact renders this evaluation limited. Perhaps once adequate resuscitation has been performed and lung findings are improving repeat imaging may be attempted with intravenous contrast, in order to evaluate for the presence or absence of acute traumatic injury. Hepatosplenomegaly. Free fluid within the deep pelvis, never a normal finding in a male patient. Chest X-Ray 06/03/24 18:56 IMPRESSION: Redemonstration of a multifocal pneumonia, as detailed above. Endotracheal and orogastric tubes in good radiographic position. ABG ABG results: 06/03/24 06/03/24 12:50 14:37 Puncture Site Right radial Right brachial ABG pH 7.503 H* 7.442 ABG pCO2 29.5 L 33.3 L ABG pO2 67.2 L 66.7 L ABG PO2/FiO2 Ratio 0.75 0.67 ABG HCO3 22.6 22.2 ABG O2 Saturation 95.1 94.1 L ABG O2 Content 16.6 15.6 L ABG Base Excess 0.4 -1.3 A-a Gradient 544.3 613.0 Oxyhemoglobin 93.3 92.0 Carboxyhemoglobin 0.3 0.3 Reduced Hemoglobin 6.1 H 7.6 H Total Hemoglobin 12.6 12.0 O2 Delivery Device Non-invasive vent Ventilator O2 Liters/Min Not Reportable Not Reportable Vent Rate 12 20 FiO2 90 100 Assessment and Plan Assessment and plan (1) Septic shock: Code(s): A41.9 - Sepsis, unspecified organism; R65.21 - Severe sepsis with septic shock Status: Acute (2) Multifocal pneumonia: Code(s): J18.9 - Pneumonia, unspecified organism Status: Acute (3) Influenza A: Code(s): J10.1 - Influenza due to other identified influenza virus with other respiratory manifestations Status: Acute (4) Acute respiratory failure with hypoxia: Code(s): J96.01 - Acute respiratory failure with hypoxia Status: Acute (5) Atrial fibrillation with rapid ventricular response: Code(s): I48.91 - Unspecified atrial fibrillation Status: Acute (6) Acute kidney injury: Code(s): N17.9 - Acute kidney failure, unspecified Status: Acute (7) Hyponatremia: Code(s): E87.1 - Hypo-osmolality and hyponatremia Status: Acute (8) Hypertension: Code(s): I10 - Essential (primary) hypertension Status: Acute (9) Schizophrenia: Code(s): F20.9 - Schizophrenia, unspecified Status: Acute (10) Alcohol abuse: Code(s): F10.10 - Alcohol abuse, uncomplicated Status: Acute (11) Tobacco abuse: Code(s): Z72.0 - Tobacco use Status: Acute Plan The patient presented to the emergency department after he was found ill in his senior living cell with abnormal vital signs as detailed in the HPI. Labs, imaging, EKG, and all reports were personally reviewed. He is in septic shock with refractory hypotension for which he has now been started on vasopressors. Source of infection is his lungs with significant, multifocal pneumonia noted on CT scan. Likely superimposed bacterial pneumonia in the setting of influenza A. He has been started on cefepime, doxycycline, and vancomycin as well as oseltamivir. Send sputum for culture. Blood cultures have been obtained and are pending. He was intubated in the emergency department for impending respiratory failure and is currently requiring 100% FiO2 and high PEEP to maintain oxygen saturations in the upper 80s. He has since been started on neuromuscular blockade and has been placed in the prone position with improvement. Sodium was 117 and he looks extremely dehydrated on exam and has been started on normal saline with close monitoring of his electrolytes. He has an acute kidney injury which is likely due to combination of dehydration and sepsis. On arrival to the ED was in rapid atrial fibrillation with rates in the 200s and underwent synchronized cardioversion at 200 joules with mandaen of sinus rhythm however he is now back in rapid atrial fibrillation and is being started on an amiodarone drip as well as a heparin drip. An extended period of time was spent with the patient's father, Kaveh, discussing his condition and Kaveh has decided to make the patient a do not resuscitate as he states the patient has poor quality of life due to his addictions and chronic mental health problems. The patient's medical management will be taken over by the hospitalist team in a.m. Quality VTE Prophylaxis VTE prophylaxis: pharmacologic ordered (currently on heparin drip) Hospitalist MIPS Advance Care Plan I have confirmed that the patient's Advanced Care Plan is present, code status is documented, or surrogate decision maker is listed in patient medical record.: Yes Medication Reconciliation I have utilized all available resources to obtain, update and review the patients current medications (includes all prescriptions, OTC, herbals, cannabis, and nutritional supplements).: Yes Critical Care Time Critical Care Time: Yes Total Critical Care Time: 75 Attestation: Due to a high probability of clinically significant, life threatening deterioration, the patient required my highest level of preparedness to intervene emergently and I personally spent this critical care time directly and personally managing the patient. This critical care time included obtaining a history; examining the patient; pulse oximetry; ordering and review of studies; arranging urgent treatment with development of a management plan; evaluation of patient's response to treatment; frequent reassessment; and discussions with other providers. It was exclusive of separately billable procedures and treating other patients and teaching time. Please see Assessment and Plan section and the rest of the note for further information on patient assessment and treatment.
--- NOTE | 2024-06-03 13:54 | WPDCNINT ---
Assessment and Plan Assessment and plan (1) Acute respiratory failure: Code(s): J96.00 - Acute respiratory failure, unspecified whether with hypoxia or hypercapnia Status: Acute Assessment and Plan: Acute respiratory failure secondary to pneumonia Patient is currently on BiPAP but will be intubated. Vent orders placed. Patient will be sedated with Versed and fentanyl. I will check an ABG post intubation chest x-ray Check CT chest without contrast Check viral PCR panel Bronchodilators Check urine Legionella and pneumococcal antigen (2) Sepsis: Code(s): A41.9 - Sepsis, unspecified organism Status: Acute Assessment and Plan: Sepsis secondary to pneumonia. Check UA Check blood and sputum culture Check lactic acid and procalcitonin level Empiric vancomycin cefepime and doxycycline Patient received 1 L fluid bolus. Further fluids will be guided by patient's sodium level. Repeat BMP ordered. (3) Pneumonia: Code(s): J18.9 - Pneumonia, unspecified organism Status: Acute Assessment and Plan: See above (4) Hyponatremia: Code(s): E87.1 - Hypo-osmolality and hyponatremia Status: Acute Assessment and Plan: Etiology is not clear at this point in this could be secondary to excessive water intake. This could also be secondary to SIADH or congestive heart failure Patient received 1 L fluid bolus and repeat BMPs ordered Depending on the sodium results will decide on further treatment Nephrology will be consulted (5) SABA (acute kidney injury): Code(s): N17.9 - Acute kidney failure, unspecified Status: Acute Assessment and Plan: Baseline creatinine unknown Presented with creatinine of 1.5 for which could be secondary to sepsis and hypovolemia Patient will be given fluids as guided by his sodium level Nephrology consult Check CT abdomen to make sure there is no obstruction or stone Place Jimenez for accurate I&Os Check CK and urine electrolytes (6) Atrial fibrillation with RVR: Code(s): I48.91 - Unspecified atrial fibrillation Status: Acute Assessment and Plan: Status post DC cardioversion in ER. Currently in sinus tachycardia. Currently on heparin infusion. Cardiology consult Check echocardiogram (7) Elevated brain natriuretic peptide (BNP) level: Code(s): R79.89 - Other specified abnormal findings of blood chemistry Status: Acute Assessment and Plan: Patient has elevated BNP although no evidence of volume overload from exam Obtain CT chest to further evaluate his pulmonary opacity Check echocardiogram Cautious IV fluid (8) Hypertension: Code(s): I10 - Essential (primary) hypertension Status: Acute Assessment and Plan: Patient currently not on any medications. Hold antihypertensive medications as patient will be now intubated and sedated Plan DVT prophylaxis -heparin infusion Stress ulcer prophylaxis -Protonix Nutrition - npo Code Status - Full Code Total Critical Care Time - 40 minutes Due to a high probability of clinically significant, life threatening deterioration, the patient required my highest level of preparedness to intervene emergently and I personally spent this critical care time directly and personally managing the patient. This critical care time included obtaining a history; examining the patient; pulse oximetry; ordering and review of studies; arranging urgent treatment with development of a management plan; evaluation of patient's response to treatment; frequent reassessment; and discussions with other providers. It was exclusive of separately billable procedures and treating other patients and teaching time. Please see Assessment and Plan section and the rest of the note for further information on patient assessment and treatment Rejected Items Clerk Consult Note Consult date: 06/03/24 Reason for consult: Acute respiratory failure, pneumonia, hyponatremia HPI: Sergio Gold is a 49 year old male with past medical history of psychiatry disorder and hypertension was brought from [facility] with hypoxia. Patient currently is on BiPAP limited history was obtainable. Patient states that he was in a psych [facility] prior to transfer to skilled nursing 2 weeks ago. Patient states that he was sick even before he went to skilled nursing. He has not had any of his psychiatric medications. He also has history of hypertension but currently is not getting any medications. He states he continues to feel sick and got worse. He states he had a fever, body aches, shortness of breath, cough with yellow phlegm. He denies any diarrhea dysuria hematuria. Due to him being on BiPAP and in respiratory distress only limited review of system was obtainable. Patient did tell the ER physician that he drinks lot of water. Workup in the ER showed the patient was in AFib with RVR and had to be cardioverted. He was placed on BiPAP. Cardiology was consulted the ER. Was started on heparin infusion. When I evaluated the patient patient was on BiPAP of 14/7 at 90% FiO2. His respiratory rate was high 40s. Patient was unable to speak full sentences and was tachypnea. I spoke to ER physician and requested the patient needs to be intubated due to his respiratory failure. ER physician was agreeable. Patient was also agreeable for intubation and mechanical ventilation. He requested that his father be making decisions on his behalf if he is unable to do so. Patient is now going to be intubated in the ER prior to transfer to ICU. He has additional test pending including PCR for influenza and COVID along with CT scan of chest. Review of Systems Review of Systems: ROS unobtainable: Yes unobtainable due to medical condition and unobtainable due to mental status [facility] Past Medical History Medical History (Updated 06/03/24 @ 14:05 by Carlos Enrique Camarillo MD) Hypertension Social History Social History (Updated 06/03/24 @ 13:58 by Carlos Enrique Camarillo MD) Social History: Smokes 1 pack per day further details unknown. Patient is currently in skilled nursing history is limited due to respiratory failure Meds Home Medications and Allergies Home Medications ?Medication ?Instructions ?Recorded ?Confirmed ?Type cephalexin 500 mg capsule 500 mg PO Q12H 7 days #14 caps 07/12/21 Rx Allergies Allergy/AdvReac Type Severity Reaction Status Date / Time Sulfa (Sulfonamide Allergy rash Verified 06/03/24 12:19 Antibiotics) Vital Signs Vital Signs - 24 hr 06/03/24 11:28 06/03/24 11:37 06/03/24 11:45 Pulse Rate 209 H 194 H 151 H Respiratory Rate 51 H 58 H Blood Pressure 121/62 Pulse Oximetry 86 L 90 Oxygen Delivery Non-Rebreather Mask BiPAP Oxygen Flow Rate 15 06/03/24 11:54 06/03/24 11:55 06/03/24 12:15 Pulse Rate 110 H 105 H 105 H Respiratory Rate 51 H 49 H 55 H Blood Pressure 86/58 L Pulse Oximetry 92 91 98 Oxygen Delivery BiPAP Oxygen Flow Rate Exam Narrative: General: Pt is alert awake patient who appears older than his age and is is in respiratory distress on BiPAP Lungs/Chest: Coarse breath sounds bilaterally right worse than left, no crackles, no wheezing, tachypnea with use of accessory muscles Cardiac: Irregular rate and rhythm. Normal S1 S2. No murmurs Circulation: Pedal pulses are intact and symmetrical. Abdomen: Normal bowel sounds.. Soft. NT. ND. Extremities: No clubbing, cyanosis or edema. Warm : Jimenez in place Neurologic: Follows commands. Moves all 4 extremities PERRL AO x3 Skin: No Rash Results Labs 06/03/24 11:36 06/03/24 11:36 Labs: Impressions Chest X-Ray 06/03/24 12:44 IMPRESSION: 1. Bilateral pneumonia. Short CBC 06/03/24 Range/Units 11:36 WBC 14.0 H (4.5-10.0) K/mm3 Hgb 13.1 L (14.0-18.0) g/dL Hct 35.7 L (42.0-52.0) % Plt Count 300 (150-375) k/mm3 BMP 06/03/24 11:36 Sodium 117 L* Potassium 3.5 Chloride 77 L Carbon Dioxide 29 BUN 33 H Creatinine 1.54 H Glucose 145 H Calcium 8.6 Cardiac Enzymes 06/03/24 Range/Units 11:36 Troponin I < 0.012 (0.000-0.034) ng/mL Liver Function 06/03/24 Range/Units 11:36 Total Bilirubin 1.1 (0.2-1.3) mg/dL AST 90 H (17-59) U/L ALT 41 (6-50) U/L Alkaline Phosphatase 47 (38-126) U/L Albumin 3.2 L (3.5-5.1) g/dL ECG Interpretation: First EKG showed AFib with RVR. Repeat EKG shows sinus tachycardia with PACs Quality VTE Prophylaxis VTE prophylaxis: pharmacologic ordered Hospitalist MIPS Advance Care Plan I have confirmed that the patient's Advanced Care Plan is present, code status is documented, or surrogate decision maker is listed in patient medical record.: Yes Medication Reconciliation I have utilized all available resources to obtain, update and review the patients current medications (includes all prescriptions, OTC, herbals, cannabis, and nutritional supplements).: Yes
--- NOTE | 2024-06-03 14:05 | PC.NURSE ---
Pt intubated with MD Cruz, RT, two RN's present. ETT secured 25 at lip. Bilateral breath sounds present. 20 etomidate given at 13:48 followed by 100 succ. Verbal order from MD Cruz for 2mg Midazolam given IV at 14:01 for sedation. OG and ch catheter placed, x-ray at bedside.
[2024-06-03] MEDS: PROPOFOL IV EMULSION 100 ML 4.39 MG IV CONT (14:16)
[2024-06-03 14:19] LABS: Influenza A QL RT-PCR Positive (Negative); Influenza B QL RT-PCR Negative (Negative); RSV RNA, RT-PCR Negative (Negative); SARS-CoV-2 RNA PCR Negative (Negative)
[2024-06-03] MEDS: FENTANYL 2,500MCG/NS250ML(*CRX 2,500 MCG/250 ML BAG IV CONT (14:26)
[2024-06-03] MEDS: MIDAZOLAM 100MG/NS 100ML(*CRX) 100 MG/100 ML BAG IV CONT (14:32)
[2024-06-03 14:40] LABS: Base Excess ABG -1.3 mEq/l (+/-2.0); Carboxyhemoglobin 0.3 % THb (0-2.0); Fractional Inspired Oxygen 100 %; HCO3 ABG 22.2 mEq/l (22.0-26.0); Methemoglobin ABG 0.1 %THb (0-1.5); Oxygen Content ABG 15.6 %vol (16.0-22.0); Oxygen Saturation ABG 94.1 % (95.0-100.0); PCO2 ABG 33.3 mmHg (35.0-45.0); PO2 ABG 66.7 mmHg (80.0-100.0); PO2 FiO2 Ratio Arterial Blood 0.67 %; Reduced Hemoglobin 7.6 %THb (0-5.0); pH ABG 7.442 (7.350-7.450)
[2024-06-03 14:41] LABS: Device VENTILATOR; Site Drawn RIGHT BRACHIAL
[2024-06-03 14:42] LABS: Arterial Blood Gas PEEP 12 cmH2O; Arterial Blood Gas Tidal Volume 450 ml; Arterial Blood Gas Vent Mode CMV; Arterial Blood Gas Ventilator rate 20 /MIN
[2024-06-03] MEDS: VANCOMYCIN 1,750 MG/NS 500 ML 1,750 MG/500 ML BAG 250 MG IVPB (14:45)
[2024-06-03 14:55] LABS: MRSA (PCR) NOT DETECTED (NOT DETECTE)
[2024-06-03 15:00] LABS: Creatine Kinase 69 U/L (55-170); Triglycerides 54 mg/dL (<150)
[2024-06-03] MEDS: MIDAZOLAM HCL (*CRX) 2 MG/2 ML VIAL IV PUSH ×3 (15:02→16:40)
--- NOTE | 2024-06-03 15:09 | ECG_ITS ---
Test Date: 2024-06-03 15:34:38 Measurements Intervals [place] Rate: 134 P: 51 DE: 166 QRS: 66 QRSD: 90 T: 52 QT: 289 QTc: 432 Interpretive Statements SINUS TACHYCARDIA WITH OCCASIONAL VENTRICULAR PREMATURE COMPLEXES WITH FREQUENT SUPRAVENTRICULAR PREMATURE COMPLEXES ST ELEVATION IN ANTERIOR LEADS- CONSIDER INJURY, PERICARDITIS OR EARLY REPOLARIZATION BASELINE ARTIFACT- III, V3-V6 ABNORMAL ECG Compared to ECG 06/03/2024 12:10:00 No significant changes Electronically Signed On 06-03-2024 17:00:15 PEDIAT[employer]IC [employer] MEDIC[employer] SPECIALIST by Merrick Alford D.O.
[2024-06-03 15:10] LABS: Anion Gap 8 mmol/L (4-12); Blood Urea Nitrogen 35 mg/dL (9-20); Calcium 7.6 mg/dL (8.4-10.2); Carbon Dioxide 28 mmol/L (22-30); Chloride 83 mmol/L (98-107); Estimated CRCL calculation 52 ml/min; Estimated Glomerular Filt Rate 51; Glucose 115 mg/dL (65-110); Potassium 3.3 mmol/L (3.4-5.0); Sodium 119 mmol/L (137-145)
[2024-06-03 15:24] LABS: Add Urine Microscopic? YES; Appearance Urine Cloudy (Clear); Bacteria Urine None Seen /hpf; Bilirubin Urine 1+ (Negative); Blood Urine 2+ (Negative); Color Urine Dark Yellow (Yellow); Glucose Urine UA Negative (Negative); Ketones Urine Negative (Negative); Leukocyte Esterase Ur Negative LEU/UL (Negative); Need Manual Microscopic Reviewed; Nitrate Urine Negative (Negative); Non Pathogenic Casts >20; Protein Urine 3+ mg/dL (Negative); RBC Urine 0-2 /hpf (0-2); Specific Grav Ur 1.021 (1.001-1.035); Squamous Epithelial Cell Urine Few /hpf (Few); WBC Urine 0-5 /hpf (0-3); pH Urine 5.5 (5.0-9.0)
[2024-06-03 15:28] LABS: Procalcitonin 37.3 ng/mL
[2024-06-03 16:05] LABS: Creatinine Urine 146.3 mg/dL
[2024-06-03 16:06] LABS: Sodium Urine Random < 5 meq/L
[2024-06-03] MEDS: OSELTAMIVIR PHOSPHATE ORAL SUSP 75 MG/12.5 ML SYRINGE FEED TUBE (16:36)
--- NOTE | 2024-06-03 17:23 | ADMGEN ---
This patient, Sergio Gold, was admitted to Intensive Care Unit-8 at 1723. Patient/family oriented to hospital policies and general routines including ID bracelet, bed and alarms, visiting hours, pain management, procedures, bathroom and other care routines, personal items, smoking policy, room service/diet, and visiting hours. Information on how to activate the Rapid Response Team has been discussed. Patient/Family are encouraged to report perceived risks to care and to ask questions if they do not understand what they are told or what they should do.
[2024-06-03] MEDS: ROCURONIUM BROMIDE 50 MG/5 ML VIAL IV PUSH (17:43)
[2024-06-03] MEDS: CISATRACURIUM BESYLATE 200 MG in DEXTROSE 5% 80 ML 6.58 ML IV CONT (17:46)
[2024-06-03] MEDS: NOREPINEPHRINE 8 MG/D5W 250 ML 8 MG/250 ML BAG 28.13 MG IV CONT (17:46)
--- NOTE | 2024-06-03 18:07 | PC.NURSE ---
Upon arrival to ICU patients oxygen saturation at 88%, quickly dropped to 78%. Respiratory bagging patient via bvm, Dr. Camarillo called and updated, orders placed, Odalis Sahu called to bedside to place central line, add pressors, and prone once line is placed.
--- NOTE | 2024-06-03 18:26 | WPDPROCEDUR ---
Procedures Central Line Placement Right Femoral: Central Line Date: 06/03/24 Central Line Time: 18:00 Consent: I have discussed with the patient and/or surrogate (father), the non-emergent placement of a central venous catheter, including its clinical necessity/indication and associated potential risks and complications. The patient and/or surrogate understand(s) and acknowledge(s) the need to proceed with central venous catheter insertion as an important element of the patient's clinical management. Time Out Performed: Yes Patient Position: supine Patient placed on monitor/pulse ox: Yes Provider Prep: mask, sterile gown, sterile gloves, Max. sterile barrier precautions, cap and hand hygiene with conventional soap/water or alcohol based hand rub Central line prep: 2% Chlorhexidine scrub Local anesthesia used: lidocaine 1% Amount of anesthesia used (ml): 5 Sterile US Technique with sterile gel/sterile probe covers: Yes Central line lumen inserted: triple Lithuanian: 7 Length (cm): 20 Post Procedure: sutured in place, good blood return, all ports aspirated, flushed, capped, transparent dressing, antimicrobial product and aseptic technique maintained throughout procedure Post procedure x-ray: other (n/a with femoral placement) Complications: none
--- NOTE | 2024-06-03 18:40 | PCRCNOTE ---
Patient arrived to ICU from ED @ 1723. Patient was 88% on the vent with settings @ VT 450 Rate 20 PEEP 12 100%. Took patient off ventilator to bag with 100% 15L flush Ambu Bag. For an hour, patient was bagged while O2 sat was anywhere from 72-90%. Central Line being placed during this time by Odalis HATFIELD. RT suggested until everyone is ready to help prone the patient, to turn the patient with his right lung up and place pillows underneath the patient. Patient's O2 sat came up to 90-92%. RN present for entire encounter. Odalis Perez aware of how patient is placed until ready to be proned.
[2024-06-03] MEDS: DOXYCYCLINE 100 MG/NS 100 ML 100 MG/100 ML BAG IVPB (18:42)
[2024-06-03 18:52] LABS: Alanine Aminotransferase 36 U/L (6-50); Albumin Level 2.7 g/dL (3.5-5.1); Alkaline Phosphatase 35 U/L (38-126); Anion Gap 9 mmol/L (4-12); Aspartate Amino Transferase 94 U/L (17-59); Bilirubin,Total 1.1 mg/dL (0.2-1.3); Blood Urea Nitrogen 38 mg/dL (9-20); Calcium 7.9 mg/dL (8.4-10.2); Carbon Dioxide 29 mmol/L (22-30); Chloride 83 mmol/L (98-107); Estimated CRCL calculation 56 ml/min; Estimated Glomerular Filt Rate 56; Glucose 99 mg/dL (65-110); Potassium 3.8 mmol/L (3.4-5.0); Sodium 121 mmol/L (137-145)
[2024-06-03 18:56] LABS: Lactic Acid Reflex 2.6 mmol/L (0.7-2.0)
[2024-06-03 18:58] LABS: Troponin I 0.028 ng/mL (0.000-0.034)
[2024-06-03 19:11] LABS: Glucose Point of Care 140 mg/dl (65-105)
[2024-06-03] MEDS: MINERAL OIL/WHITE PETROLATUM OINTMENT 1 APPLIC EACH EYE (19:14)
[2024-06-03 19:35] LABS: HIV 1/2 Ab P24 Ag Result Negative (Negative)
--- NOTE | 2024-06-03 19:49 | ADMGEN ---
This patient, Sergio Gold, was admitted to Intensive Care Unit-8. Patient/family oriented to hospital policies and general routines including ID bracelet, bed and alarms, visiting hours, pain management, procedures, bathroom and other care routines, personal items, smoking policy, room service/diet, and visiting hours. Information on how to activate the Rapid Response Team has been discussed. Patient/Family are encouraged to report perceived risks to care and to ask questions if they do not understand what they are told or what they should do.
[2024-06-03 19:54] LABS: Hematocrit 32.6 % (42.0-52.0); Hemoglobin 11.6 g/dL (14.0-18.0); Mean Corpuscular HGB Conc 35.6 g/dl (32-36); Mean Corpuscular Hemoglobin 30.9 pg (26-34); Mean Corpuscular Volume 86.9 fl (80-100); Platelet Count Result 308 k/mm3 (150-375); Red Blood Count 3.75 M/mm3 (4.6-6.20); Red Cell Distribution Width 11.9 % (11.5-14.5); White Blood Count 10.5 K/mm3 (4.5-10.0)
[2024-06-03 19:56] LABS: MRSA (PCR) NOT DETECTED (NOT DETECTE)
--- NOTE | 2024-06-03 20:00 | PC.NURSE ---
Spoke with Kaveh Gold, patient father and next of Kin. Patient to be DNR per father request. Odalis HATFIELD as witness and Mary Tarango RN.
[2024-06-03 20:08] LABS: Partial Thromboplastin Time 33.4 Seconds (22.3-36.8)
[2024-06-03 20:12] LABS: Cortisol Random > 123.00 ug/dL
[2024-06-03] MEDS: HEPARIN SODIUM 5,000 UNITS/ML VIAL 6000 UNITS IV PUSH (20:24)
--- NOTE | 2024-06-03 20:35 | PC.NURSE ---
Patient proned at 1854.
[2024-06-03 20:39] LABS: Band Neutrophils Percent 11 % (0-6); Lymphocytes Absolute Manual 0.31 K/mm3 (1.1-4.5); Metamyelocytes Percent 4 %; Myelocytes Percent 2 %; Neutrophils Absolute Manual 9.55 K/mm3 (1.3-6.7); Neutrophils Percent Manual 80 % (46-73); Platelet Estimate Adequate (Adequate); Schistocytes None Seen; Total Cells Counted 100
[2024-06-03] MEDS: CALCIUM GLUC 2,000 MG/NS 100ML 2,000 MG/100 ML BAG 100 MG IVPB (20:48)
[2024-06-03] MEDS: ALBUMIN HUMAN 5% 25 GM/500 ML BTL IV CONT (20:48)
[2024-06-03] MEDS: SODIUM CHLORIDE 0.45% 500 ML 999 ML IV CONT (20:59)
[2024-06-03 21:07] LABS: Alveolar/Arterial O2 Gradient 482.9 mmHg; Base Excess ABG -0.3 mEq/l (+/-2.0); Carboxyhemoglobin 0.3 % THb (0-2.0); Fractional Inspired Oxygen 100 %; HCO3 ABG 27.7 mEq/l (22.0-26.0); Methemoglobin ABG 0.2 %THb (0-1.5); Oxygen Content ABG 17.1 %vol (16.0-22.0); Oxygen Saturation ABG 98.9 % (95.0-100.0); Oxyhemoglobin 98.5 % THb (90.0-100.0); PO2 ABG 168.1 mmHg (80.0-100.0); PO2 FiO2 Ratio Arterial Blood 1.68 %; Total Hemoglobin 12.1 g/dL (12.0-18.0)
[2024-06-03 21:10] LABS: pH ABG 7.268 (7.350-7.450)
[2024-06-03 21:11] LABS: Device VENTILATOR; Modified Allen's Test Pass; Site Drawn LEFT RADIAL
[2024-06-03 21:12] LABS: Arterial Blood Gas PEEP 15 cmH2O; Arterial Blood Gas Tidal Volume 450 ml; Arterial Blood Gas Vent Mode CMV; Arterial Blood Gas Ventilator rate 24 /MIN
[2024-06-03] MEDS: VASOPRESSIN INJ 100 UNITS in DEXTROSE 5% 95 ML IV CONT (21:20)
--- NOTE | 2024-06-03 21:20 | PC.NURSE ---
Updated Dr. Camarillo regarding current status and Lab values of patient. Keep ventilator settings the same, decrease FIO2 to 80%.
[2024-06-03 21:33] LABS: Reflex Lactic Acid Yes or No Add Lactic
[2024-06-03] MEDS: HYDROCORTISONE SODIUM SUCCINATE 100 MG/2 ML VIAL IV PUSH (21:44)
[2024-06-03] MEDS: CENTRAL LINE FLUSH 10 ML IV PUSH (21:45)
[2024-06-03] MEDS: IPRATROPIUM 0.5 MG/ALBUTEROL SULFATE 2.5 MG AMPUL.NEB 3 ML INHALATION (21:51)
[2024-06-03 22:51] LABS: Urea Random Urine 589 MG/DL
[2024-06-03 22:55] LABS: Sodium Urine Random 15 meq/L
[2024-06-03 23:06] LABS: Creatinine Urine 96.7 mg/dL
[2024-06-03 23:33] LABS: MRSA (PCR) NOT DETECTED (NOT DETECTE)
--- NOTE | 2024-06-03 23:54 | PC.NURSE ---
Updated Odalis HATFIELD regarding patient heart rhythm, start Amiodarone per protocol.
[2024-06-04] VITALS (55 sets, daily range): BP systolic 85–120; BP diastolic 59–97; PULSE 74–150; RESP 24–98; TEMP 36.8–38.5; O2SAT 92–98; BMI 25.7
[2024-06-04 00:05] LABS: Anion Gap 11 mmol/L (4-12); Blood Urea Nitrogen 36 mg/dL (9-20); Calcium 8.2 mg/dL (8.4-10.2); Carbon Dioxide 27 mmol/L (22-30); Chloride 84 mmol/L (98-107); Estimated CRCL calculation 50 ml/min; Estimated Glomerular Filt Rate 49; Glucose 122 mg/dL (65-110); Potassium 3.6 mmol/L (3.4-5.0); Sodium 122 mmol/L (137-145)
[2024-06-04 00:18] LABS: Troponin I 0.015 ng/mL (0.000-0.034)
[2024-06-04] MEDS: AMIODARONE 150 MG/D5W 100 ML 150 MG/100 ML BAG 600 MG IV CONT ×2 (00:18→01:49)
[2024-06-04] MEDS: AMIODARONE 360 MG/D5W 200 ML 360 MG/200 ML BAG 33.33 MG IV CONT ×5 (00:18→23:10)
[2024-06-04] MEDS: SODIUM CHLORIDE 0.45% 1,000 ML 100 ML IV CONT (00:26)
[2024-06-04] MEDS: IPRATROPIUM 0.5 MG/ALBUTEROL SULFATE 2.5 MG AMPUL.NEB 3 ML INHALATION ×4 (01:00→21:08)
--- NOTE | 2024-06-04 01:49 | PC.NURSE ---
Updated Dr. Camarillo regarding Heart Rate/rhythm. Repeat Amiodarone bolus 150mg IV x1. Keep Amiodarone at 1mg/min until otherwise ordered.
[2024-06-04 02:56] LABS: Partial Thromboplastin Time 56.6 Seconds (22.3-36.8)
[2024-06-04] MEDS: NOREPINEPHRINE 8 MG/D5W 250 ML 8 MG/250 ML BAG 22.5 MG IV CONT (02:57)
[2024-06-04] MEDS: HEPARIN SODIUM 5,000 UNITS/ML VIAL 3000 UNITS IV PUSH ×2 (03:04→17:14)
[2024-06-04] MEDS: HEPARIN SOD/D5W 100 UNITS/ML 25,000 UNITS/250 ML BAG 17 UNITS IV CONT (03:09)
[2024-06-04] MEDS: DOXYCYCLINE 100 MG/NS 100 ML 100 MG/100 ML BAG IVPB ×2 (04:02→17:09)
[2024-06-04] MEDS: CISATRACURIUM BESYLATE 200 MG in DEXTROSE 5% 80 ML 6.58 ML IV CONT ×2 (04:39→17:14)
[2024-06-04] MEDS: FENTANYL 2,500MCG/NS250ML(*CRX 2,500 MCG/250 ML BAG 20 MCG IV CONT ×2 (05:01→17:08)
[2024-06-04 05:05] LABS: Alveolar/Arterial O2 Gradient 237.1 mmHg; Base Excess ABG -1.9 mEq/l (+/-2.0); Carboxyhemoglobin 0.3 % THb (0-2.0); Fractional Inspired Oxygen 65 %; HCO3 ABG 27.2 mEq/l (22.0-26.0); Methemoglobin ABG 0.2 %THb (0-1.5); Oxygen Content ABG 15.8 %vol (16.0-22.0); Oxygen Saturation ABG 98.4 % (95.0-100.0); Oxyhemoglobin 98.5 % THb (90.0-100.0); PO2 ABG 149.6 mmHg (80.0-100.0); Total Hemoglobin 11.2 g/dL (12.0-18.0)
[2024-06-04 05:09] LABS: PCO2 ABG 70.6 mmHg (35.0-45.0); pH ABG 7.203 (7.350-7.450)
[2024-06-04] MEDS: CENTRAL LINE FLUSH 10 ML IV PUSH ×3 (05:09→21:57)
[2024-06-04] MEDS: HYDROCORTISONE SODIUM SUCCINATE 100 MG/2 ML VIAL IV PUSH ×3 (05:09→21:57)
[2024-06-04 05:10] LABS: Device VENTILATOR; Modified Allen's Test Pass; Site Drawn LEFT RADIAL
[2024-06-04 05:11] LABS: Arterial Blood Gas PEEP 15 cmH2O; Arterial Blood Gas Tidal Volume 450 ml; Arterial Blood Gas Vent Mode CMV; Arterial Blood Gas Ventilator rate 24 /MIN
[2024-06-04 05:25] LABS: Hemoglobin 10.3 g/dL (14.0-18.0); Mean Corpuscular HGB Conc 34.3 g/dl (32-36); Mean Corpuscular Hemoglobin 30.6 pg (26-34); Mean Platelet Volume 9.3 fl (7.4-10.4); Platelet Count Result 254 k/mm3 (150-375); Red Blood Count 3.37 M/mm3 (4.6-6.20); Red Cell Distribution Width 12.1 % (11.5-14.5); White Blood Count 17.4 K/mm3 (4.5-10.0)
[2024-06-04 05:34] LABS: Lactic Acid Reflex 1.9 mmol/L (0.7-2.0)
[2024-06-04 05:40] LABS: Alanine Aminotransferase 76 U/L (6-50); Albumin Level 2.9 g/dL (3.5-5.1); Alkaline Phosphatase 36 U/L (38-126); Anion Gap 9 mmol/L (4-12); Aspartate Amino Transferase 251 U/L (17-59); Bilirubin,Total 0.9 mg/dL (0.2-1.3); Blood Urea Nitrogen 39 mg/dL (9-20); Carbon Dioxide 28 mmol/L (22-30); Chloride 83 mmol/L (98-107); Estimated CRCL calculation 46 ml/min; Estimated Glomerular Filt Rate 44; Glucose 171 mg/dL (65-110); Magnesium 2.2 mg/dL (1.6-2.3); Potassium 3.8 mmol/L (3.4-5.0); Sodium 120 mmol/L (137-145)
[2024-06-04 05:44] LABS: Band Neutrophils Percent 8 % (0-6); Lymphocytes Absolute Manual 1.21 K/mm3 (1.1-4.5); Neutrophils Absolute Manual 16.18 K/mm3 (1.3-6.7); Neutrophils Percent Manual 85 % (46-73); Nucleated Red Blood Cells 1 %; Total Cells Counted 100
[2024-06-04 05:45] LABS: Anisocytosis 1+; Large Platelets Present; Platelet Estimate Adequate (Adequate); Schistocytes None Seen
[2024-06-04] MEDS: MIDAZOLAM 100MG/NS 100ML(*CRX) 100 MG/100 ML BAG 6 MG IV CONT ×2 (06:18→22:00)
[2024-06-04] MEDS: SODIUM BICARBONATE 8.4% 50 MEQ/50 ML SYRINGE 100 MEQ IV PUSH (06:23)
[2024-06-04] MEDS: SODIUM CHLORIDE 0.9% IV 1,000 ML 100 ML IV CONT (06:23)
[2024-06-04] MEDS: MINERAL OIL/WHITE PETROLATUM OINTMENT 1 APPLIC EACH EYE ×2 (08:27→21:57)
[2024-06-04] MEDS: PANTOPRAZOLE SODIUM IV 40 MG VIAL IV PUSH (08:27)
[2024-06-04] MEDS: OSELTAMIVIR PHOSPHATE ORAL SUSP 30 MG/5 ML SYRINGE FEED TUBE ×2 (08:32→21:57)
[2024-06-04 09:10] LABS: Partial Thromboplastin Time 47.8 Seconds (22.3-36.8)
[2024-06-04] MEDS: HEPARIN SODIUM 5,000 UNITS/ML VIAL 6000 UNITS IV PUSH ×2 (09:38→23:06)
[2024-06-04] MEDS: CEFEPIME 1 GM/NS 50 ML 1 GM/50 ML BAG IVPB (09:39)
--- NOTE | 2024-06-04 11:45 | P.CONNP_ITS ---
Assessment and Plan Assessment and plan (1) SABA (acute kidney injury): Code(s): N17.9 - Acute kidney failure, unspecified Status: Acute Assessment and Plan: * baseline creatinine unknown * records have been requested * admission creatinine 1.54mg/dl with transient improvement to 1.37mg/dl * suspect ATN with multifactorial etiology: * prerenal factors * hemodynamic instability/shock * infection/sepsis (pneumonia/influenza/bacteremia) * contrast exposure (CTA on 06/03 although creatinine was already elevated on admission) * evaluation to date noted: * CT without evidence of obstruction * UA with blood and protein but no infection * urine electrolytes prerenal * CPK normal * s/p IVF resuscitation * 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 * risk factors for low sodium: * ARF versus CKD(?) * medications(?) * excessive free water intake(?) * lung disease (known smoker) * influenza infection * pneumonia * hold further IVFs at this time * check TSH, cortisol, serum/urine osmolality, and SPEP/UPEP & kappa/lambda ratio * goal of therapy is a change in sodium no more than 8mmol/24 hours * follow trend of serial sodium levels (3) Septic shock: Code(s): A41.9 - Sepsis, unspecified organism; R65.21 - Severe sepsis with septic shock Status: Acute Assessment and Plan: * as noted by hypotension unresponsive to IVFs * requiring vasopressor therapy to maintain MAP * wean as tolerated * thought to be secondary to pneumonia +/- influenza * culture data noted: * blood cultures (06/03) with gram positive cocci in pairs * on antibiotics * on stress dose steroids (4) Acute respiratory failure: Code(s): J96.00 - Acute respiratory failure, unspecified whether with hypoxia or hypercapnia Status: Acute Assessment and Plan: * thought to be secondary to pneumonia +/- influenza * intubated in the ER due to worsening hypoxia and tachypnea (impending respiratory failure) * prone positioning to assist with oxygenation * viral testing negative for RSV and COVID * requiring sedation along with paralytics for ventilator synchrony (5) Pneumonia: Code(s): J18.9 - Pneumonia, unspecified organism Status: Acute Assessment and Plan: * as noted by admission imaging * continue therapy as outlined (6) Atrial fibrillation with RVR: Code(s): I48.91 - Unspecified atrial fibrillation Status: Acute Assessment and Plan: * failed rate control measures with IV metoprolol and cardizem * s/p dC cardioversion with return with brief return to NSR * on heparin gtt and amiodarone gtt * Cardiology following * Echo pending (7) Influenza A: Code(s): J10.1 - Influenza due to other identified influenza virus with other respiratory manifestations Status: Acute Assessment and Plan: * positive testing in ER * on Tamiflu (8) Schizophrenia: Code(s): F20.9 - Schizophrenia, unspecified Status: Acute Assessment and Plan: * known history of schizophrenia and other behavioral issues * unclear what medication he is taking for this issue I will continue to follow the patient with you while he remains hospitalized and make further recommendations as deemed necessary. Thank you for allowing me to participate in the care of this patient. L History of Present Illness Reason for Consult Consult date: 06/04/24 Reason for consult: chronic renal failure and hyponatremia Chief Complaint Chief complaint: Multifocal pneumonia, Afib with RVR, resp distress History of Present Illness Narrative: All the information that I have obtained is from review of the electronic medical record as well as discussion with the physician/nurses involved in the patient's care as am unable to get any history from the patient as he is currently intubated and on mechanical ventilation. The patient is a 49-year-old male with a past medical history as outlined below who presented to [facility] Emergency Room via EMS from [facility] after he was found to be hypoxic. Apparently, on the day of admission, his oxygen saturations were reportedly 50-60% on room air and EMS was called. He was placed on supplemental oxygen with only mild improvement in his oxygen saturations and he was subsequently transported to the emergency room for further assessment. Workup and evaluation emergency room demonstrated the patient to continued to be hypoxic despite being on a 15 L non-rebreather mask. Furthermore, he was tachycardic and tachypneic as well but his blood pressure was stable. EKG demonstrated evidence of atrial fibrillation with RVR. Rate controlled attempted with IV metoprolol and IV Cardizem but this resulted in a drop in his blood pressure. Hence the strategy was switched to cardioversion which did return him to normal sinus rhythm with frequent PVCs. Repeat EKG demonstrated some concerns for possible ST segment elevation and due to concern for acute coronary syndrome, he was started on heparin drip. Routine labs demonstrated a CBC witha white blood cell count of 14.0 and hemoglobin 13.1 but with 14% bands; his chemistry was significant for sodium of 117, chloride 77, BUN 33 creatinine 1.54, elevated pro in be of 4190, and a negative troponin. Viral testing for RSV and COVID were negative but he was positive for influenza A. Subsequent CT scan of the chest/abdomen / pelvis demonstrated dense bilateral pulmonary infiltrates, loculated dense a fusion a left upper lobe, hepatic splenomegaly, and free fluid within the deep pelvis. His respiratory status continued to decline in the emergency room and eventually he had to be intubated and placed on mechanical ventilation. after appropriate cultures were obtained, he was started broad-spectrum antibiotics and was subsequently admitted to the ICU for further management. On arrival to the ICU, he continued to have low blood pressures in association with tachycardia. Furthermore, he also remained hypoxic despite being on a PEEP of 12. His sedation was adjusted but he remained hypotensive and subsequently a central line had to be placed and he was started on vasopressor therapy. Furthermore, because of his ongoing hypoxia, paralytics were started and he was placed in a prone position which did seem to improve his oxygenation. Along with broad-spectrum antibiotics, he was started on Tamiflu as well. Renal consultation was requested due to his renal insufficiency in association with his hyponatremia. Unfortunately, at this time, there are no previous labs to compare to in terms of his creatinine and sodium level. The assumption is that these are acute changes. However, given his history with regard to psychiatric issues, there was a concern that he may have been taking medications that may have played a role with his low sodium level and renal insufficiency at this time in conjunction with his septic shock. In spite of his renal dysfunction and hyponatremia, he still appears to be making reasonable urine output. Along with broad-spectrum antibiotics and Tamiflu, stress dose steroids have been initiated as well given his significant/severe hypoxia with evidence of significant/severe pneumonia by imaging studies. Aside from his hyponatremia, he has no other critical electrolyte abnormalities. Currently, the patient remains intubated/ sedated / paralyzed and in prone positioning at the time of my visit. Review of Systems 2 Review of Systems: As per HPI. [facility] Past Medical History Medical History Alcohol abuse Tobacco abuse Schizophrenia Hypertension Social History Social History Social History: Surrogate medical decision maker: Kaveh Gold, father ([phone]). Code status: Do not resuscitate. Smoking status: Current every day smoker Additional smoking assessment comments: Unknown how much patient smokes daily Alcohol intake: current Substance use: unknown Additional living arrangements comments: Up until recently was living in an apartment above the dad's garage. He has 1 brother. No children. Additional occupation/education comments: On disability due to mental health conditions. Spiritual care concerns: No Meds Home Medications and Allergies Home Medications ?Medication ?Instructions ?Recorded ?Confirmed ?Type Unable to Obtain Home Medications 06/07/24 06/07/24 History Allergies Allergy/AdvReac Type Severity Reaction Status Date / Time Sulfa (Sulfonamide Allergy rash Verified 06/03/24 12:19 Antibiotics) Vital Signs Vital Signs Temp Pulse Resp BP Pulse Ox O2 Del Method FiO2 06/04/24 11:25 115 H 91/74 L 06/04/24 10:53 107 H 98 Mechanical Ventilation 50 06/04/24 10:00 99.3 F 103 H 28 H 109/97 H 97 06/04/24 10:00 112 H 06/04/24 10:00 113 H 109/97 H 06/04/24 10:00 113 H 28 H 109/97 H 06/04/24 10:00 113 H 28 H 06/04/24 10:00 113 H 28 H 06/04/24 10:00 113 H 109/97 H 06/04/24 09:58 104 H 109/97 H 06/04/24 09:34 112 H 28 H 96/66 L 06/04/24 08:33 120 H 97 Mechanical Ventilation 50 06/04/24 08:33 120 H 28 H 06/04/24 08:00 123 H 97/66 L 06/04/24 08:00 123 H 28 H 06/04/24 08:00 123 H 28 H 97/66 L 06/04/24 08:00 123 H 28 H 06/04/24 08:00 123 H 97/66 L 06/04/24 08:00 123 H 97/66 L 06/04/24 08:00 50 06/04/24 08:00 123 H 28 H 96 50 06/04/24 08:00 97 Mechanical Ventilation 50 06/04/24 08:00 99.5 F 123 H 98 H 97/66 L 96 06/04/24 06:18 130 H 24 H 06/04/24 06:18 130 H 24 H 06/04/24 06:16 134 H 95 Mechanical Ventilation 50 06/04/24 06:09 132 H 06/04/24 06:00 130 H 98/74 L 06/04/24 06:00 130 H 24 H 98/74 L 06/04/24 06:00 130 H 24 H 06/04/24 06:00 130 H 98/74 L 06/04/24 06:00 130 H 98/74 L 06/04/24 06:00 130 H 24 H 06/04/24 06:00 99.2 F 132 H 24 H 98/74 L 94 06/04/24 06:00 132 H 06/04/24 05:26 123 H 96 Mechanical Ventilation 65 06/04/24 05:25 136 H 95/62 L 06/04/24 05:01 131 H 24 H 06/04/24 05:01 131 H 24 H 06/04/24 04:39 122 H 24 H 94/59 L 06/04/24 04:39 122 H 24 H 94/59 L 06/04/24 04:00 99.3 F 133 H 24 H 112/59 L 97 06/04/24 04:00 145 H 06/04/24 04:00 136 H 112/59 L 06/04/24 04:00 136 H 112/59 L 06/04/24 04:00 136 H 24 H 06/04/24 04:00 136 H 24 H 112/59 L 06/04/24 04:00 132 H 112/59 L 06/04/24 04:00 132 H 24 H 06/04/24 03:40 136 H 24 H 97 Mechanical Ventilation 65 06/04/24 03:39 65 06/04/24 03:39 134 H 24 H 97 65 06/04/24 03:30 136 H 85/68 L 06/04/24 02:57 134 H 95/69 L 06/04/24 02:57 134 H 95/69 L 06/04/24 02:30 140 H 91/67 L 06/04/24 02:00 99.4 F 140 H 24 H 95/69 L 97 06/04/24 02:00 140 H 06/04/24 02:00 140 H 103/81 06/04/24 02:00 140 H 103/81 06/04/24 02:00 140 H 24 H 06/04/24 02:00 140 H 24 H 103/81 06/04/24 02:00 140 H 103/81 06/04/24 02:00 150 H 24 H 06/04/24 01:49 140 H 103/81 06/04/24 01:48 150 H 24 H 06/04/24 01:35 123 H 24 H 06/04/24 01:15 123 H 96 Mechanical Ventilation 70 06/04/24 01:01 123 H 24 H 06/04/24 00:18 147 H 114/65 06/04/24 00:18 147 H 114/65 06/04/24 00:01 127 H 104/67 06/04/24 00:01 129 H 24 H 06/04/24 00:01 129 H 24 H 104/67 06/04/24 00:01 125 H 104/67 06/04/24 00:01 129 H 24 H 06/04/24 00:00 126 H 06/04/24 00:00 147 H 24 H 97 Mechanical Ventilation 70 06/04/24 00:00 70 06/04/24 00:00 139 H 24 H 97 70 06/04/24 00:00 99.9 F H 135 H 24 H 104/67 97 06/03/24 23:15 123 H 114/77 06/03/24 23:00 75 06/03/24 23:00 120 H 114/75 06/03/24 22:45 118 H 114/76 06/03/24 22:43 123 H 96 Mechanical Ventilation 80 06/03/24 22:30 118 H 110/78 06/03/24 22:24 123 H 24 H 06/03/24 22:00 121 H 06/03/24 22:00 119 H 109/73 06/03/24 22:00 120 H 24 H 06/03/24 22:00 120 H 24 H 109/73 06/03/24 22:00 120 H 24 H 06/03/24 22:00 120 H 109/73 06/03/24 22:00 119 H 24 H 96 80 06/03/24 22:00 99.2 F 120 H 24 H 109/73 96 06/03/24 21:51 123 H 24 H 06/03/24 21:45 118 H 109/70 06/03/24 21:20 118 H 105/62 06/03/24 21:00 100.5 F H 124 H 24 H 119/63 98 06/03/24 20:30 125 H 24 H 06/03/24 20:00 127 H 24 H 97 Mechanical Ventilation 100 06/03/24 20:00 125 H 06/03/24 20:00 125 H 24 H 97 100 06/03/24 20:00 127 H 24 H 06/03/24 20:00 127 H 104/70 06/03/24 20:00 130 H 24 H 104/70 06/03/24 20:00 130 H 24 H 06/03/24 19:30 132 H 88/59 L 06/03/24 18:57 131 H 24 H 95 100 06/03/24 18:48 128 H 24 H 99/70 L 06/03/24 18:30 126 H 92 Mechanical Ventilation 100 06/03/24 18:24 129 H 06/03/24 18:24 89 L Mechanical Ventilation 100 06/03/24 18:00 101.3 F H 130 H 24 H 100/71 86 L 06/03/24 18:00 128 H 24 H 06/03/24 18:00 129 H 24 H 06/03/24 17:46 127 H 35 H 68/37 L 78 L 06/03/24 17:46 129 H 68/37 L 06/03/24 17:46 126 H 29 H 81/72 L 06/03/24 17:45 132 H 33 H 72/42 L 78 L Exam 2 Narrative: GENERAL APPEARANCE: middle aged male intubated/sedated/paralyzed on mechanical ventilation in prone position HEENT: normocephalic, atraumatic, normal conjunctiva and sclera, nares patient NECK: no lymphadenopathy, thyromegaly, or JVD MOUTH: normal lips, teeth, and gums CARDIOVASCULAR: IRRR but tachycardic; normal S1 and S2, no rub RESPIRATORY: coarse breath sounds with bilateral rales ABDOMEN: unable to fully assess due to prone position; diminished bowel sounds present EXTREMITIES: no evidence of cyanosis, clubbing, or edema NEUROLOGICAL: unable to assess Results Lab Results 06/08/24 05:07 06/08/24 05:07 Lab results: Most recent lab results ABG pH 7.434 (7.350-7.450) 06/04/24 14:28 ABG pCO2 41.8 mmHg (35.0-45.0) 06/04/24 14:28 ABG pO2 118.4 mmHg (80.0-100.0) H 06/04/24 14:28 ABG HCO3 27.4 mEq/l (22.0-26.0) H 06/04/24 14:28 ABG O2 Saturation 98.4 % (95.0-100.0) 06/04/24 14:28 Calcium 8.0 mg/dL (8.4-10.2) L 06/04/24 05:17 Magnesium 2.2 mg/dL (1.6-2.3) 06/04/24 05:17 Urine Creatinine 96.7 mg/dL 06/03/24 22:09
--- NOTE | 2024-06-04 11:48 | P.PNINT_ITS ---
Progress Note: A&P Assessment and Plan (1) Acute respiratory failure: Code(s): J96.00 - Acute respiratory failure, unspecified whether with hypoxia or hypercapnia Status: Acute Assessment and Plan: Acute respiratory failure secondary to pneumonia -06/03: intubated in the ER -patient remains on CMV mode of ventilation, peep of 12 and 50% FiO2 this morning -in prone position since 6:00 p.m. on 06/03 - chest x-ray this morning: Improved aeration of the left hemithorax when compared with previous studies.Right hemithorax is unchanged.Supportive lines and tubes in good position. -influenza A positive -negative for COVID, RSV -urine Legionella and pneumococcal antigen obtained and pending, -mycoplasma pneumonia pending -continue bronchodilators -sedated with fentanyl, Versed. Also paralyzed with Nimbex for ventilator synchrony 06/03/2024: CT chest, abdomen, pelvis IMPRESSION: Dense bilateral pulmonary infiltrates. Loculated dense effusion within the left upper lobe, similar to what one might see with an adjacent fracture. Although, significant respiratory artifact renders this evaluation limited. Perhaps once adequate resuscitation has been performed and lung findings are improving repeat imaging may be attempted with intravenous contrast, in order to evaluate for the presence or absence of acute traumatic injury. Hepatosplenomegaly. Free fluid within the deep pelvis, never a normal finding in a male patient. (2) Septic shock: Code(s): A41.9 - Sepsis, unspecified organism; R65.21 - Severe sepsis with septic shock Status: Acute Assessment and Plan: Patient with hypotension, refractory to IV fluids, -etiology likely related to pneumonia, UA was unremarkable -patient received adequate amount of IV fluids -06/03: blood cultures growing -Gram-positive cocci in pair -lactic acid has normalized -continue vancomycin cefepime and doxycycline (06/03) -currently on Levophed and vasopressin MAP > 65 mm Hg or SBP > 100 mm Hg -continue stress dose steroids (06/03) (3) Pneumonia: Code(s): J18.9 - Pneumonia, unspecified organism Status: Acute Assessment and Plan: See above (4) Hyponatremia: Code(s): E87.1 - Hypo-osmolality and hyponatremia Status: Acute Assessment and Plan: Hyponatremia with sodium levels of 117 on admission Etiology is not clear at this point in this could be secondary to excessive water intake. This could also be secondary to SIADH, congestive heart failure, SSRI, increased water intake -patient received adequate IV fluids -could will discontinue maintenance IV fluids, discussed with Nephrology -nephrology following the patient and appreciate the evaluation and recommendations -continue to monitor sodium levels (5) SABA (acute kidney injury): Code(s): N17.9 - Acute kidney failure, unspecified Status: Acute Assessment and Plan: Baseline creatinine unknown Presented with creatinine of 1.5 for which could be secondary to sepsis and hypovolemia Status post IV fluids Appreciate nephrology following the patient 06/03: CTA chest abdomen pelvis did not show any hydronephrosis renal calculi Jimenez in place, urine output has been low Urine lytes reflective of prerenal picture, patient has had adequate IV fluids, now in ARDS, per in prone position on mechanical ventilation (6) Atrial fibrillation with RVR: Code(s): I48.91 - Unspecified atrial fibrillation Status: Acute Assessment and Plan: Status post DC cardioversion in ER. Currently on heparin infusion. -cardiology has been consulted, awaiting recommendation -echocardiogram has been ordered -patient received amiodarone bolus x2, lower remains on amiodarone infusion at 1 mg/min -patient on pressors, unable to add any diltiazem or metoprolol (7) Elevated brain natriuretic peptide (BNP) level: Code(s): R79.89 - Other specified abnormal findings of blood chemistry Status: Acute Assessment and Plan: Patient has elevated BNP of 4190, although no evidence of volume overload from exam CT chest showed multifocal pneumonia Check echocardiogram Cautious IV fluid (8) Hypertension: Code(s): I10 - Essential (primary) hypertension Status: Acute Assessment and Plan: Hold all antihypertensives as patient is on pressors (9) Influenza A: Code(s): J10.1 - Influenza due to other identified influenza virus with other respiratory manifestations Status: Acute Assessment and Plan: Patient was tested positive for influenza A, on Tamiflu (10) Schizophrenia: Code(s): F20.9 - Schizophrenia, unspecified Status: Acute Assessment and Plan: History of schizophrenia and other behavior issues Unknown if he takes any medications Plan DVT prophylaxis -heparin infusion for AFib RVR Stress ulcer prophylaxis -Protonix Nutrition: NPO Code Status -DNR Total Critical Care Time - 43 minutes Due to a high probability of clinically significant, life threatening deterioration, the patient required my highest level of preparedness to intervene emergently and I personally spent this critical care time directly and personally managing the patient. This critical care time included obtaining a history; examining the patient; pulse oximetry; ordering and review of studies; arranging urgent treatment with development of a management plan; evaluation of patient's response to treatment; frequent reassessment; and discussions with other providers. It was exclusive of separately billable procedures and treating other patients and teaching time. Please see Assessment and Plan section and the rest of the note for further information on patient assessment and treatment This dictation may have been done utilizing a voice recognition system. Attempts have been made to correct errors. However, there may be uncorrected grammatical, spelling, and recognitions errors present. Subjective Date/time seen: 06/04/24 11:48 Interval history: Reason for consult: Acute respiratory failure, pneumonia, bacteremia, acute kidney injury, hyponatremia, AFib RVR status post DC cardioversion 06/04/2024: Patient seen and examined the ICU, remains intubated on CMV mode of ventilation, peep of 12, 50% FiO2. In prone position, remains sedated with fentanyl and Versed infusion. Also on Nimbex for ventilator synchrony. Patient last evening had increased oxygen requirements and decreased O2 sats, he was paralyzed with the back, central line was inserted in the right femoral vein and then placed in prone position with improvement in oxygen saturation. This morning ABGs showed improved oxygenation and ventilation. Peep was decreased to 12 from 15 and FiO2 was decreased from 70% to 50%. Patient remains on Levophed and vasopressin, urine output has been low, afebrile. Review of Systems Review of Systems: ROS unobtainable: Yes unobtainable due to medical condition and unobtainable due to mental status Exam Narrative: General: Intubated, sedated, paralyzed, in prone position HEENT: Pupils equal and reactive, sclera is clear Lungs/Chest: Coarse breath sounds bilaterally right worse than left, bilateral rales, decreased breath sounds at bases, otherwise adequate air entry Cardiac: Is regularly irregular, tachycardic Circulation: Pedal pulses are intact and symmetrical. Abdomen: Decreased l bowel sounds. On unable to assess as patient is in prone position, abdominal is soft from the sides Extremities: No clubbing, cyanosis or edema. Warm : Jimenez in place Neurologic: Intubated, sedated, paralyzed with Nimbex. Skin: No Rash Objective Data Vital Signs Vital Signs: Vital Signs - 24 hr 06/03/24 11:49 06/03/24 11:51 06/03/24 11:51 Temperature 97.8 F Pulse Rate 131 H 201 H 172 H Respiratory Rate 51 H 49 H Blood Pressure 82/51 L 78/57 L Pulse Oximetry 86 L Oxygen Delivery Fraction of Inspired Oxygen 06/03/24 11:54 06/03/24 11:55 06/03/24 11:55 Temperature Pulse Rate 110 H 105 H 132 H Respiratory Rate 51 H 49 H Blood Pressure 86/58 L Pulse Oximetry 92 91 Oxygen Delivery Fraction of Inspired Oxygen 06/03/24 11:58 06/03/24 12:00 06/03/24 12:01 Temperature Pulse Rate 136 H 112 H 119 H Respiratory Rate 47 H 54 H 46 H Blood Pressure 101/65 96/73 L Pulse Oximetry 95 95 96 Oxygen Delivery Fraction of Inspired Oxygen 06/03/24 12:06 06/03/24 12:11 06/03/24 12:14 Temperature Pulse Rate 111 H 120 H 118 H Respiratory Rate 41 H 42 H 46 H Blood Pressure 104/79 107/62 107/62 Pulse Oximetry 97 99 97 Oxygen Delivery Fraction of Inspired Oxygen 06/03/24 12:15 06/03/24 12:15 06/03/24 12:16 Temperature Pulse Rate 105 H 105 H 125 H Respiratory Rate 55 H 36 H 42 H Blood Pressure 116/91 H Pulse Oximetry 98 98 97 Oxygen Delivery BiPAP Fraction of Inspired Oxygen 06/03/24 12:21 06/03/24 12:30 06/03/24 12:57 Temperature Pulse Rate 122 H 115 H 134 H Respiratory Rate 33 H 36 H 52 H Blood Pressure 139/125 H Pulse Oximetry 97 96 93 Oxygen Delivery Fraction of Inspired Oxygen 06/03/24 13:00 06/03/24 13:01 06/03/24 13:06 Temperature Pulse Rate 127 H 133 H 134 H Respiratory Rate 30 H 47 H 36 H Blood Pressure 110/67 116/75 Pulse Oximetry 94 94 94 Oxygen Delivery Fraction of Inspired Oxygen 06/03/24 13:11 06/03/24 13:15 06/03/24 13:16 Temperature Pulse Rate 124 H 125 H 128 H Respiratory Rate 36 H 35 H 38 H Blood Pressure 111/80 131/81 Pulse Oximetry 94 95 95 Oxygen Delivery Fraction of Inspired Oxygen 06/03/24 13:21 06/03/24 13:26 06/03/24 13:37 Temperature Pulse Rate 130 H 129 H 130 H Respiratory Rate 21 H 30 H 17 Blood Pressure 126/84 108/77 Pulse Oximetry 95 95 96 Oxygen Delivery Fraction of Inspired Oxygen 06/03/24 13:45 06/03/24 13:46 06/03/24 13:50 Temperature Pulse Rate 136 H 132 H 132 H Respiratory Rate 47 H 45 H 24 H Blood Pressure 139/100 H 128/74 Pulse Oximetry 99 97 93 Oxygen Delivery Fraction of Inspired Oxygen 06/03/24 14:00 06/03/24 14:00 06/03/24 14:16 Temperature Pulse Rate 121 H 138 H 131 H Respiratory Rate 34 H 36 H Blood Pressure Pulse Oximetry 94 94 Oxygen Delivery Mechanical Ventilation Fraction of Inspired Oxygen 100 06/03/24 14:20 06/03/24 14:20 06/03/24 14:26 Temperature Pulse Rate 128 H 128 H 128 H Respiratory Rate 26 H 26 H 34 H Blood Pressure Pulse Oximetry Oxygen Delivery Fraction of Inspired Oxygen 06/03/24 14:32 06/03/24 14:38 06/03/24 14:41 Temperature Pulse Rate 119 H 124 H 121 H Respiratory Rate 25 H 27 H 31 H Blood Pressure 89/66 L Pulse Oximetry Oxygen Delivery Fraction of Inspired Oxygen 06/03/24 14:45 06/03/24 14:46 06/03/24 14:51 Temperature Pulse Rate 121 H 122 H 129 H Respiratory Rate 29 H 24 H 36 H Blood Pressure 105/90 114/85 Pulse Oximetry 96 Oxygen Delivery Fraction of Inspired Oxygen 06/03/24 14:52 06/03/24 14:56 06/03/24 15:00 Temperature Pulse Rate 125 H 128 H 126 H Respiratory Rate 32 H 31 H 30 H Blood Pressure 122/90 Pulse Oximetry 90 Oxygen Delivery Fraction of Inspired Oxygen 06/03/24 15:01 06/03/24 15:02 06/03/24 15:06 Temperature Pulse Rate 128 H 130 H 129 H Respiratory Rate 32 H 33 H 37 H Blood Pressure 130/82 124/79 Pulse Oximetry 90 93 Oxygen Delivery Fraction of Inspired Oxygen 06/03/24 15:07 06/03/24 15:11 06/03/24 15:12 Temperature Pulse Rate 126 H 128 H 136 H Respiratory Rate 37 H 33 H 32 H Blood Pressure 131/84 Pulse Oximetry 95 Oxygen Delivery Fraction of Inspired Oxygen 06/03/24 15:15 06/03/24 15:16 06/03/24 15:21 Temperature Pulse Rate 132 H 132 H 126 H Respiratory Rate 37 H 36 H 36 H Blood Pressure 128/79 116/70 Pulse Oximetry 98 95 Oxygen Delivery Fraction of Inspired Oxygen 06/03/24 15:22 06/03/24 15:32 06/03/24 15:37 Temperature Pulse Rate 131 H 137 H 126 H Respiratory Rate 36 H 38 H 38 H Blood Pressure Pulse Oximetry Oxygen Delivery Fraction of Inspired Oxygen 06/03/24 15:53 06/03/24 16:02 06/03/24 16:23 Temperature Pulse Rate 133 H 139 H Respiratory Rate 35 H Blood Pressure Pulse Oximetry 98 96 Oxygen Delivery Mechanical Ventilation Mechanical Ventilation Fraction of Inspired Oxygen 100 06/03/24 16:27 06/03/24 16:47 06/03/24 16:54 Temperature Pulse Rate 135 H 138 H 138 H Respiratory Rate 30 H 32 H Blood Pressure Pulse Oximetry Oxygen Delivery Fraction of Inspired Oxygen 06/03/24 16:57 06/03/24 17:42 06/03/24 17:45 Temperature Pulse Rate 141 H 127 H 132 H Respiratory Rate 31 H 27 H 33 H Blood Pressure 77/58 L 72/42 L Pulse Oximetry 82 L 78 L Oxygen Delivery Fraction of Inspired Oxygen 06/03/24 17:46 06/03/24 17:46 06/03/24 17:46 Temperature Pulse Rate 126 H 129 H 127 H Respiratory Rate 29 H 35 H Blood Pressure 81/72 L 68/37 L 68/37 L Pulse Oximetry 78 L Oxygen Delivery Fraction of Inspired Oxygen 06/03/24 18:00 06/03/24 18:00 06/03/24 18:00 Temperature 101.3 F H Pulse Rate 129 H 128 H 130 H Respiratory Rate 24 H 24 H 24 H Blood Pressure 100/71 Pulse Oximetry 86 L Oxygen Delivery Fraction of Inspired Oxygen 06/03/24 18:24 06/03/24 18:24 06/03/24 18:30 Temperature Pulse Rate 129 H 126 H Respiratory Rate Blood Pressure Pulse Oximetry 89 L 92 Oxygen Delivery Mechanical Ventilation Mechanical Ventilation Fraction of Inspired Oxygen 100 100 06/03/24 18:48 06/03/24 18:57 06/03/24 19:30 Temperature Pulse Rate 128 H 131 H 132 H Respiratory Rate 24 H 24 H Blood Pressure 99/70 L 88/59 L Pulse Oximetry 95 Oxygen Delivery Fraction of Inspired Oxygen 100 06/03/24 20:00 06/03/24 20:00 06/03/24 20:00 Temperature Pulse Rate 130 H 130 H 127 H Respiratory Rate 24 H 24 H Blood Pressure 104/70 104/70 Pulse Oximetry Oxygen Delivery Fraction of Inspired Oxygen 06/03/24 20:00 06/03/24 20:00 06/03/24 20:00 Temperature Pulse Rate 127 H 125 H 125 H Respiratory Rate 24 H 24 H Blood Pressure Pulse Oximetry 97 Oxygen Delivery Fraction of Inspired Oxygen 100 06/03/24 20:00 06/03/24 20:30 06/03/24 21:00 Temperature 100.5 F H Pulse Rate 127 H 125 H 124 H Respiratory Rate 24 H 24 H 24 H Blood Pressure 119/63 Pulse Oximetry 97 98 Oxygen Delivery Mechanical Ventilation Fraction of Inspired Oxygen 100 06/03/24 21:20 06/03/24 21:45 06/03/24 21:51 Temperature Pulse Rate 118 H 118 H 123 H Respiratory Rate 24 H Blood Pressure 105/62 109/70 Pulse Oximetry Oxygen Delivery Fraction of Inspired Oxygen 06/03/24 22:00 06/03/24 22:00 06/03/24 22:00 Temperature 99.2 F Pulse Rate 120 H 119 H 120 H Respiratory Rate 24 H 24 H Blood Pressure 109/73 109/73 Pulse Oximetry 96 96 Oxygen Delivery Fraction of Inspired Oxygen 80 06/03/24 22:00 06/03/24 22:00 06/03/24 22:00 Temperature Pulse Rate 120 H 120 H 120 H Respiratory Rate 24 H 24 H 24 H Blood Pressure 109/73 Pulse Oximetry Oxygen Delivery Fraction of Inspired Oxygen 06/03/24 22:00 06/03/24 22:00 06/03/24 22:24 Temperature Pulse Rate 119 H 121 H 123 H Respiratory Rate 24 H Blood Pressure 109/73 Pulse Oximetry Oxygen Delivery Fraction of Inspired Oxygen 06/03/24 22:30 06/03/24 22:43 06/03/24 22:45 Temperature Pulse Rate 118 H 123 H 118 H Respiratory Rate Blood Pressure 110/78 114/76 Pulse Oximetry 96 Oxygen Delivery Mechanical Ventilation Fraction of Inspired Oxygen 80 06/03/24 23:00 06/03/24 23:00 06/03/24 23:15 Temperature Pulse Rate 120 H 123 H Respiratory Rate Blood Pressure 114/75 114/77 Pulse Oximetry Oxygen Delivery Fraction of Inspired Oxygen 75 06/04/24 00:00 06/04/24 00:00 06/04/24 00:00 Temperature 99.9 F H Pulse Rate 135 H 139 H Respiratory Rate 24 H 24 H Blood Pressure 104/67 Pulse Oximetry 97 97 Oxygen Delivery Fraction of Inspired Oxygen 70 70 06/04/24 00:00 06/04/24 00:00 06/04/24 00:01 Temperature Pulse Rate 147 H 126 H 129 H Respiratory Rate 24 H 24 H Blood Pressure Pulse Oximetry 97 Oxygen Delivery Mechanical Ventilation Fraction of Inspired Oxygen 70 06/04/24 00:01 06/04/24 00:01 06/04/24 00:01 Temperature Pulse Rate 125 H 129 H 129 H Respiratory Rate 24 H 24 H Blood Pressure 104/67 104/67 Pulse Oximetry Oxygen Delivery Fraction of Inspired Oxygen 06/04/24 00:01 06/04/24 00:18 06/04/24 00:18 Temperature Pulse Rate 127 H 147 H 147 H Respiratory Rate Blood Pressure 104/67 114/65 114/65 Pulse Oximetry Oxygen Delivery Fraction of Inspired Oxygen 06/04/24 01:01 06/04/24 01:15 06/04/24 01:35 Temperature Pulse Rate 123 H 123 H 123 H Respiratory Rate 24 H 24 H Blood Pressure Pulse Oximetry 96 Oxygen Delivery Mechanical Ventilation Fraction of Inspired Oxygen 70 06/04/24 01:48 06/04/24 01:49 06/04/24 02:00 Temperature Pulse Rate 150 H 140 H 150 H Respiratory Rate 24 H 24 H Blood Pressure 103/81 Pulse Oximetry Oxygen Delivery Fraction of Inspired Oxygen 06/04/24 02:00 06/04/24 02:00 06/04/24 02:00 Temperature Pulse Rate 140 H 140 H 140 H Respiratory Rate 24 H 24 H Blood Pressure 103/81 103/81 Pulse Oximetry Oxygen Delivery Fraction of Inspired Oxygen 06/04/24 02:00 06/04/24 02:00 06/04/24 02:00 Temperature Pulse Rate 140 H 140 H 140 H Respiratory Rate Blood Pressure 103/81 103/81 Pulse Oximetry Oxygen Delivery Fraction of Inspired Oxygen 06/04/24 02:00 06/04/24 02:30 06/04/24 02:57 Temperature 99.4 F Pulse Rate 140 H 140 H 134 H Respiratory Rate 24 H Blood Pressure 95/69 L 91/67 L 95/69 L Pulse Oximetry 97 Oxygen Delivery Fraction of Inspired Oxygen 06/04/24 02:57 06/04/24 03:30 06/04/24 03:39 Temperature Pulse Rate 134 H 136 H 134 H Respiratory Rate 24 H Blood Pressure 95/69 L 85/68 L Pulse Oximetry 97 Oxygen Delivery Fraction of Inspired Oxygen 65 06/04/24 03:39 06/04/24 03:40 06/04/24 04:00 Temperature Pulse Rate 136 H 132 H Respiratory Rate 24 H 24 H Blood Pressure Pulse Oximetry 97 Oxygen Delivery Mechanical Ventilation Fraction of Inspired Oxygen 65 65 06/04/24 04:00 06/04/24 04:00 06/04/24 04:00 Temperature Pulse Rate 132 H 136 H 136 H Respiratory Rate 24 H 24 H Blood Pressure 112/59 L 112/59 L Pulse Oximetry Oxygen Delivery Fraction of Inspired Oxygen 06/04/24 04:00 06/04/24 04:00 06/04/24 04:00 Temperature Pulse Rate 136 H 136 H 145 H Respiratory Rate Blood Pressure 112/59 L 112/59 L Pulse Oximetry Oxygen Delivery Fraction of Inspired Oxygen 06/04/24 04:00 06/04/24 04:39 06/04/24 04:39 Temperature 99.3 F Pulse Rate 133 H 122 H 122 H Respiratory Rate 24 H 24 H 24 H Blood Pressure 112/59 L 94/59 L 94/59 L Pulse Oximetry 97 Oxygen Delivery Fraction of Inspired Oxygen 06/04/24 05:01 06/04/24 05:01 06/04/24 05:25 Temperature Pulse Rate 131 H 131 H 136 H Respiratory Rate 24 H 24 H Blood Pressure 95/62 L Pulse Oximetry Oxygen Delivery Fraction of Inspired Oxygen 06/04/24 05:26 06/04/24 06:00 06/04/24 06:00 Temperature 99.2 F Pulse Rate 123 H 132 H 132 H Respiratory Rate 24 H Blood Pressure 98/74 L Pulse Oximetry 96 94 Oxygen Delivery Mechanical Ventilation Fraction of Inspired Oxygen 65 06/04/24 06:00 06/04/24 06:00 06/04/24 06:00 Temperature Pulse Rate 130 H 130 H 130 H Respiratory Rate 24 H Blood Pressure 98/74 L 98/74 L Pulse Oximetry Oxygen Delivery Fraction of Inspired Oxygen 06/04/24 06:00 06/04/24 06:00 06/04/24 06:00 Temperature Pulse Rate 130 H 130 H 130 H Respiratory Rate 24 H 24 H Blood Pressure 98/74 L 98/74 L Pulse Oximetry Oxygen Delivery Fraction of Inspired Oxygen 06/04/24 06:09 06/04/24 06:16 06/04/24 06:18 Temperature Pulse Rate 132 H 134 H 130 H Respiratory Rate 24 H Blood Pressure Pulse Oximetry 95 Oxygen Delivery Mechanical Ventilation Fraction of Inspired Oxygen 50 06/04/24 06:18 06/04/24 08:00 06/04/24 08:00 Temperature 99.5 F Pulse Rate 130 H 123 H Respiratory Rate 24 H 98 H Blood Pressure 97/66 L Pulse Oximetry 96 97 Oxygen Delivery Mechanical Ventilation Fraction of Inspired Oxygen 50 06/04/24 08:00 06/04/24 08:00 06/04/24 08:00 Temperature Pulse Rate 123 H 123 H Respiratory Rate 28 H Blood Pressure 97/66 L Pulse Oximetry 96 Oxygen Delivery Fraction of Inspired Oxygen 50 50 06/04/24 08:00 06/04/24 08:00 06/04/24 08:00 Temperature Pulse Rate 123 H 123 H 123 H Respiratory Rate 28 H 28 H Blood Pressure 97/66 L 97/66 L Pulse Oximetry Oxygen Delivery Fraction of Inspired Oxygen 06/04/24 08:00 06/04/24 08:00 06/04/24 08:33 Temperature Pulse Rate 123 H 123 H 120 H Respiratory Rate 28 H 28 H Blood Pressure 97/66 L Pulse Oximetry Oxygen Delivery Fraction of Inspired Oxygen 06/04/24 08:33 06/04/24 09:34 06/04/24 09:58 Temperature Pulse Rate 120 H 112 H 104 H Respiratory Rate 28 H Blood Pressure 96/66 L 109/97 H Pulse Oximetry 97 Oxygen Delivery Mechanical Ventilation Fraction of Inspired Oxygen 50 06/04/24 10:00 06/04/24 10:00 06/04/24 10:00 Temperature Pulse Rate 113 H 113 H 113 H Respiratory Rate 28 H 28 H Blood Pressure 109/97 H Pulse Oximetry Oxygen Delivery Fraction of Inspired Oxygen 06/04/24 10:00 06/04/24 10:00 06/04/24 10:00 Temperature Pulse Rate 113 H 113 H 112 H Respiratory Rate 28 H Blood Pressure 109/97 H 109/97 H Pulse Oximetry Oxygen Delivery Fraction of Inspired Oxygen 06/04/24 10:00 06/04/24 10:53 06/04/24 11:25 Temperature 99.3 F Pulse Rate 103 H 107 H 115 H Respiratory Rate 28 H Blood Pressure 109/97 H 91/74 L Pulse Oximetry 97 98 Oxygen Delivery Mechanical Ventilation Fraction of Inspired Oxygen 50 06/04/24 11:28 Temperature Pulse Rate 115 H Respiratory Rate Blood Pressure 91/74 L Pulse Oximetry Oxygen Delivery Fraction of Inspired Oxygen Intake/Output Intake/Output: Intake & Output 06/01/24 06/02/24 06/03/24 06/04/24 23:59 23:59 23:59 23:59 Intake Total 3632.5 2834.9 Output Total 925 Balance 3632.5 1909.9 Meds/Results Medications: Active Medications Generic Name Dose Route Start Last Admin Trade Name Freq PRN Reason Stop Dose Admin Acetaminophen 650 mg 06/03/24 13:56 Acetaminophen Elixir 325 Mg/10.15 Ml Udc FEED TUBE Q4H PRN Fever Albuterol/Ipratropium 3 ml 06/03/24 13:50 Ipratropium 0.5 Mg/Albuterol Sulfate 2.5 Mg Ampul.Neb 3 Ml INHALATION Q6HRT PRN Wheezng Albuterol/Ipratropium 3 ml 06/03/24 20:00 06/04/24 08:33 Ipratropium 0.5 Mg/Albuterol Sulfate 2.5 Mg Ampul.Neb 3 Ml INHALATION 3 ml Q6HRT ARABELLA Administration Dextrose 12.5 gm 06/03/24 13:46 Dextrose 50% 25 Gm/50 Ml Syringe IV PUSH PRN PRN Hypoglycemia Protocol Glucagon 1 mg 06/03/24 13:46 Glucagon For Inj 1 Mg Vial IM PRN PRN Hypoglycemia Protocol Glucose 15 gm 06/03/24 13:46 Glucose Oral Gel 15 Gm Of Glucse In 37.5 Gm Tube PO PRN PRN Hypoglycemia Protocol Heparin Sodium (Porcine) 6,000 units 06/03/24 12:33 06/04/24 09:38 Heparin Sodium 5,000 Units/Ml Vial IV PUSH 6,000 units PRN PRN Administration aPTT less than 55 seconds Heparin Sodium (Porcine) 3,000 units 06/03/24 12:33 06/04/24 03:04 Heparin Sodium 5,000 Units/Ml Vial IV PUSH 3,000 units PRN PRN Administration aPTT 55 - 70 seconds Hydrocortisone Sodium Succinate 100 mg 06/03/24 22:00 06/04/24 05:09 Hydrocortisone Sodium Succinate 100 Mg/2 Ml Vial IV PUSH 100 mg Q8HR ARABELLA Administration Heparin Sodium/Dextrose 25,000 units in 250 mls @ 20 mls/hr 06/03/24 12:35 06/04/24 10:00 Heparin Sodium/D5w 100 Units/Ml IV CONT 2,000 units/hr .[id number] ARABELLA 20 mls/hr Titration Protocol 2,000 UNITS/HR Dextrose 1,000 mls @ 100 mls/hr 06/03/24 13:46 Dextrose 5% 1,000 Ml IVPB PRN PRN Hypoglycemia Protocol Fentanyl Citrate 2,500 mcg in 250 mls @ 20 mls/hr 06/03/24 13:50 06/04/24 10:00 Fentanyl 2,500 Mcg/Ns 250 Ml IV CONT 200 mcg/hr .[id number] ARABELLA 20 mls/hr Titration Protocol 200 MCG/HR Midazolam HCl 100 mg in 100 mls @ 6 mls/hr 06/03/24 13:50 06/04/24 10:00 Versed 100 Mg/Ns 100 Ml IV CONT 6 mg/hr .[id number] ARABELLA 6 mls/hr Titration Protocol 6 MG/HR Doxycycline Hyclate 100 mg in 100 mls @ 100 mls/hr 06/03/24 16:00 06/04/24 05:02 Vibramycin 100 Mg/Ns 100 Ml IVPB Infused Q12H ARABELLA Infusion Vancomycin HCl 1,500 mg in 500 mls @ 250 mls/hr 06/04/24 15:00 Vancomycin 1,500 Mg/Ns 500 Ml IVPB Q24H ARAEBLLA Cisatracurium Besylate 200 mg/ 100 mls @ 5.483 mls/hr 06/03/24 17:45 06/04/24 10:00 Dextrose IV CONT 2.5 mcg/kg/min .[id number] ARABELLA 5.48 mls/hr Titration Protocol 2.5 MCG/KG/MIN Norepinephrine Bitartrate 8 mg in 250 mls @ 22.5 mls/hr 06/03/24 17:50 06/04/24 09:58 Levophed 8 Mg/D5w 250 Ml IV CONT 12 mcg/min .[id number] ARABELLA 22.5 mls/hr Titration Protocol 12 MCG/MIN Vasopressin 100 units/ 100 mls @ 2.4 mls/hr 06/03/24 20:25 06/04/24 10:00 Dextrose IV CONT 0.04 units/min .[id number] ARABELLA 2.4 mls/hr Infusion 0.04 UNITS/MIN Amiodarone HCl/Dextrose 360 mg in 200 mls @ 33.333 mls/hr 06/04/24 01:55 06/04/24 11:28 Nexterone 360 Mg/D5w 200 Ml IV CONT 1 mg/min .Q6H ARABELLA 33.33 mls/hr Administration Protocol 1 MG/MIN Sodium Chloride 1,000 mls @ 100 mls/hr 06/04/24 06:10 06/04/24 06:23 Normal Saline Iv IV CONT 100 mls/hr .Q10H ARABELLA Administration Cefepime HCl 2 gm in 50 mls @ 100 mls/hr 06/04/24 15:00 Maxipime 2 Gm/Ns 50 Ml IVPB Q12H ARABELLA Insulin Aspart 3 - 6 units 06/03/24 18:00 06/04/24 06:23 Insulin Aspart (*Bkc) 100 Units/Ml SUB-Q Not Given Q6HR ARABELLA Protocol Midazolam HCl 2 mg 06/03/24 13:48 06/03/24 16:40 Midazolam Hcl (*Crx) 2 Mg/2 Ml Vial IV PUSH 2 mg Q5M PRN Administration ventilator asynchrony Multi-Ingred Cream/Lotion/Oil/Oint 1 applic 06/03/24 14:00 06/04/24 08:27 Mineral Oil/White Petrolatum Ointment EACH EYE 1 applic Q12HR ARABELLA Administration Oseltamivir Phosphate 30 mg 06/04/24 09:00 06/04/24 08:32 Oseltamivir Phosphate Oral Susp 30 Mg/5 Ml Syringe FEED TUBE 06/09/24 08:59 30 mg Q12HR ARABELLA Administration Pantoprazole Sodium 40 mg 06/04/24 09:00 06/04/24 08:27 Pantoprazole Sodium Iv 40 Mg Vial IV PUSH 40 mg QAM ARABELLA Administration Perflutren Lipid Microsphere 0 ml 06/03/24 13:51 Perflutren Lipid Microspheres 1.5 Ml Vial Diluted To 10 Ml Total Volume IV PUSH 06/06/24 13:52 ONCE PRN adequate visualization Protocol Sodium Chloride 10 ml 06/03/24 22:00 06/04/24 05:09 Central Line Flush IV PUSH 10 ml Q8HR ARABELLA Administration Sodium Chloride 20 ml 06/03/24 19:36 Central Line Flush IV PUSH PRN PRN after blood draws Radiology Results: ITS Impressions Chest/Abdomen/Pelvis CT 06/03/24 17:44 IMPRESSION: Dense bilateral pulmonary infiltrates. Loculated dense effusion within the left upper lobe, similar to what one might see with an adjacent fracture. Although, significant respiratory artifact renders this evaluation limited. Perhaps once adequate resuscitation has been performed and lung findings are improving repeat imaging may be attempted with intravenous contrast, in order to evaluate for the presence or absence of acute traumatic injury. Hepatosplenomegaly. Free fluid within the deep pelvis, never a normal finding in a male patient. Chest X-Ray 06/04/24 11:13 IMPRESSION: Improved aeration of the left hemithorax when compared with previous studies. Right hemithorax is unchanged. Supportive lines and tubes in good position. Labs Labs: Laboratory Results - last 24 hr 06/03/24 06/03/24 06/03/24 11:36 12:50 13:34 WBC 14.0 H RBC 4.21 L Hgb 13.1 L Hct 35.7 L MCV 84.8 MCH 31.1 MCHC 36.7 H RDW 11.8 Plt Count 300 MPV 8.7 Immature Gran % (Auto) Not Reportable Neut % (Auto) Not Reportable Lymph % (Auto) Not Reportable Travis % (Auto) Not Reportable Eos % (Auto) Not Reportable Baso % (Auto) Not Reportable Lymph # (Auto) Not Reportable Travis # (Auto) Not Reportable Eos # (Auto) Not Reportable Baso # (Auto) Not Reportable Abs Immat Gran (auto) Not Reportable Absolute Neuts (auto) Not Reportable Absolute Nucleated RBC Not Reportable Total Counted 100 Neutrophils % (Manual) 81 H Band Neutrophils % 14 H Lymphocytes % (Manual) 5 L Monocytes % (Manual) 0 L Metamyelocytes % Myelocytes % Nucleated RBC % Not Reportable Abs Neuts (Manual) 13.30 H Abs Lymphs (Manual) 0.70 L Abs Monocytes (Manual) 0.00 L Nucleated RBCs Atypical Lymphocytes Present Dohle Bodies Present Platelet Estimate Adequate Large Platelets Anisocytosis Schistocytes None seen PT 14.0 INR 1.1 APTT 27.1 Puncture Site Right radial ABG pH 7.503 H* ABG pCO2 29.5 L ABG pO2 67.2 L ABG PO2/FiO2 Ratio 0.75 ABG HCO3 22.6 ABG O2 Saturation 95.1 ABG O2 Content 16.6 ABG Base Excess 0.4 A-a Gradient 544.3 Oxyhemoglobin 93.3 Carboxyhemoglobin 0.3 Methemoglobin 0.3 Reduced Hemoglobin 6.1 H Total Hemoglobin 12.6 O2 Delivery Device Non-invasive vent O2 Liters/Min Not Reportable Minute Volume Vent Rate 12 Vent Mode FiO2 90 Expiratory Pressure 7 Tidal Volume PEEP Inspiratory Pressure 14 Peak Inspir Pressure Pressure Support Sodium 117 L* Potassium 3.5 Chloride 77 L Carbon Dioxide 29 Anion Gap 11 BUN 33 H Creatinine 1.54 H Estim Creat Clear Calc Not Reportable Estimated GFR 49 L Glucose 145 H POC Capillary Glucose Lactic Acid Calcium 8.6 Magnesium 1.9 Total Bilirubin 1.1 AST 90 H ALT 41 Alkaline Phosphatase 47 Total Creatine Kinase Troponin I < 0.012 NT-Pro-B Natriuret Pep 4190 H Total Protein 7.0 Albumin 3.2 L Triglycerides Procalcitonin TSH (Reflex) 2.790 Random Cortisol Urine Color Urine Appearance Urine pH Ur Specific Pinnacle Urine Protein Urine Glucose (UA) Urine Ketones Ur Blood (Man) Urine Nitrate Urine Bilirubin Urine Urobilinogen Add Ur Microanalysis Leukocyte Esterase Rfl Urine RBC Urine WBC Ur Squamous Epith Cells Urine Bacteria Urine Casts Hyaline Casts Ur Random Sodium Ur Random Urea Urine Creatinine Nasal MRSA (PCR) Not detected HIV 1&2 Ab/P24 Ag 4thGn Influenza A (RT-PCR) Positive A Influenza B (RT-PCR) Negative RSV (RT-PCR) Negative SARS-CoV-2 RNA (RT-PCR) Negative 06/03/24 06/03/24 06/03/24 14:37 14:41 14:42 WBC RBC Hgb Hct MCV MCH MCHC RDW Plt Count MPV Immature Gran % (Auto) Neut % (Auto) Lymph % (Auto) Travis % (Auto) Eos % (Auto) Baso % (Auto) Lymph # (Auto) Travis # (Auto) Eos # (Auto) Baso # (Auto) Abs Immat Gran (auto) Absolute Neuts (auto) Absolute Nucleated RBC Total Counted Neutrophils % (Manual) Band Neutrophils % Lymphocytes % (Manual) Monocytes % (Manual) Metamyelocytes % Myelocytes % Nucleated RBC % Abs Neuts (Manual) Abs Lymphs (Manual) Abs Monocytes (Manual) Nucleated RBCs Atypical Lymphocytes Dohle Bodies Platelet Estimate Large Platelets Anisocytosis Schistocytes PT INR APTT Puncture Site Right brachial ABG pH 7.442 ABG pCO2 33.3 L ABG pO2 66.7 L ABG PO2/FiO2 Ratio 0.67 ABG HCO3 22.2 ABG O2 Saturation 94.1 L ABG O2 Content 15.6 L ABG Base Excess -1.3 A-a Gradient 613.0 Oxyhemoglobin 92.0 Carboxyhemoglobin 0.3 Methemoglobin 0.1 Reduced Hemoglobin 7.6 H Total Hemoglobin 12.0 O2 Delivery Device Ventilator O2 Liters/Min Not Reportable Minute Volume Not Reportable Vent Rate 20 Vent Mode Cmv FiO2 100 Expiratory Pressure Tidal Volume 450 PEEP 12 Inspiratory Pressure Peak Inspir Pressure Not Reportable Pressure Support Not Reportable Sodium 119 L* Potassium 3.3 L Chloride 83 L Carbon Dioxide 28 Anion Gap 8 BUN 35 H Creatinine 1.48 H Estim Creat Clear Calc 52 Estimated GFR 51 L Glucose 115 H POC Capillary Glucose Lactic Acid Calcium 7.6 L Magnesium Total Bilirubin AST ALT Alkaline Phosphatase Total Creatine Kinase 69 Troponin I NT-Pro-B Natriuret Pep Total Protein Albumin Triglycerides 54 Procalcitonin 37.3 TSH (Reflex) Random Cortisol Urine Color Dark yellow Urine Appearance Cloudy H Urine pH 5.5 Ur Specific Pinnacle 1.021 Urine Protein 3+ H Urine Glucose (UA) Negative Urine Ketones Negative Ur Blood (Man) 2+ H Urine Nitrate Negative Urine Bilirubin 1+ H Urine Urobilinogen 1.0 Add Ur Microanalysis Reviewed Leukocyte Esterase Rfl Negative Urine RBC 0-2 Urine WBC 0-5 Ur Squamous Epith Cells Few Urine Bacteria None seen Urine Casts >20 Hyaline Casts 3-4 H Ur Random Sodium < 5 Ur Random Urea Urine Creatinine 146.3 Nasal MRSA (PCR) HIV 1&2 Ab/P24 Ag 4thGn Influenza A (RT-PCR) Influenza B (RT-PCR) RSV (RT-PCR) SARS-CoV-2 RNA (RT-PCR) 06/03/24 06/03/24 06/03/24 17:49 18:19 18:20 WBC 10.5 H RBC 3.75 L Hgb 11.6 L Hct 32.6 L MCV 86.9 MCH 30.9 MCHC 35.6 RDW 11.9 Plt Count 308 MPV 10.0 Immature Gran % (Auto) Not Reportable Neut % (Auto) Not Reportable Lymph % (Auto) Not Reportable Travis % (Auto) Not Reportable Eos % (Auto) Not Reportable Baso % (Auto) Not Reportable Lymph # (Auto) Not Reportable Travis # (Auto) Not Reportable Eos # (Auto) Not Reportable Baso # (Auto) Not Reportable Abs Immat Gran (auto) Not Reportable Absolute Neuts (auto) Not Reportable Absolute Nucleated RBC Not Reportable Total Counted 100 Neutrophils % (Manual) 80 H Band Neutrophils % 11 H Lymphocytes % (Manual) 3.0 L Monocytes % (Manual) Metamyelocytes % 4 Myelocytes % 2 Nucleated RBC % Not Reportable Abs Neuts (Manual) 9.55 H Abs Lymphs (Manual) 0.31 L Abs Monocytes (Manual) Nucleated RBCs Atypical Lymphocytes Dohle Bodies Platelet Estimate Adequate Large Platelets Anisocytosis Schistocytes None seen PT INR APTT 33.4 Puncture Site ABG pH ABG pCO2 ABG pO2 ABG PO2/FiO2 Ratio ABG HCO3 ABG O2 Saturation ABG O2 Content ABG Base Excess A-a Gradient Oxyhemoglobin Carboxyhemoglobin Methemoglobin Reduced Hemoglobin Total Hemoglobin O2 Delivery Device O2 Liters/Min Minute Volume Vent Rate Vent Mode FiO2 Expiratory Pressure Tidal Volume PEEP Inspiratory Pressure Peak Inspir Pressure Pressure Support Sodium 121 L Cancelled Potassium 3.8 Cancelled Chloride 83 L Cancelled Carbon Dioxide 29 Cancelled Anion Gap 9 Cancelled BUN 38 H Cancelled Creatinine 1.37 H Cancelled Estim Creat Clear Calc 56 Cancelled Estimated GFR 56 L Cancelled Glucose 99 Cancelled POC Capillary Glucose 140 H Lactic Acid 2.6 H Calcium 7.9 L Cancelled Magnesium Total Bilirubin 1.1 Cancelled AST 94 H Cancelled ALT 36 Cancelled Alkaline Phosphatase 35 L Cancelled Total Creatine Kinase Troponin I 0.028 D NT-Pro-B Natriuret Pep Total Protein 6.0 L Cancelled Albumin 2.7 L Cancelled Triglycerides Procalcitonin TSH (Reflex) Random Cortisol > 123.00 Urine Color Urine Appearance Urine pH Ur Specific Pinnacle Urine Protein Urine Glucose (UA) Urine Ketones Ur Blood (Man) Urine Nitrate Urine Bilirubin Urine Urobilinogen Add Ur Microanalysis Leukocyte Esterase Rfl Urine RBC Urine WBC Ur Squamous Epith Cells Urine Bacteria Urine Casts Hyaline Casts Ur Random Sodium Ur Random Urea Urine Creatinine Nasal MRSA (PCR) HIV 1&2 Ab/P24 Ag 4thGn Negative Influenza A (RT-PCR) Influenza B (RT-PCR) RSV (RT-PCR) SARS-CoV-2 RNA (RT-PCR) 06/03/24 06/03/24 06/03/24 18:38 21:04 22:09 WBC RBC Hgb Hct MCV MCH MCHC RDW Plt Count MPV Immature Gran % (Auto) Neut % (Auto) Lymph % (Auto) Travis % (Auto) Eos % (Auto) Baso % (Auto) Lymph # (Auto) Travis # (Auto) Eos # (Auto) Baso # (Auto) Abs Immat Gran (auto) Absolute Neuts (auto) Absolute Nucleated RBC Total Counted Neutrophils % (Manual) Band Neutrophils % Lymphocytes % (Manual) Monocytes % (Manual) Metamyelocytes % Myelocytes % Nucleated RBC % Abs Neuts (Manual) Abs Lymphs (Manual) Abs Monocytes (Manual) Nucleated RBCs Atypical Lymphocytes Dohle Bodies Platelet Estimate Large Platelets Anisocytosis Schistocytes PT INR APTT Puncture Site Left radial ABG pH 7.268 L* ABG pCO2 62.0 H* ABG pO2 168.1 H ABG PO2/FiO2 Ratio 1.68 ABG HCO3 27.7 H ABG O2 Saturation 98.9 ABG O2 Content 17.1 ABG Base Excess -0.3 A-a Gradient 482.9 Oxyhemoglobin 98.5 Carboxyhemoglobin 0.3 Methemoglobin 0.2 Reduced Hemoglobin 1.0 Total Hemoglobin 12.1 O2 Delivery Device Ventilator O2 Liters/Min Not Reportable Minute Volume Not Reportable Vent Rate 24 Vent Mode Cmv FiO2 100 Expiratory Pressure Tidal Volume 450 PEEP 15 Inspiratory Pressure Peak Inspir Pressure Not Reportable Pressure Support Not Reportable Sodium Potassium Chloride Carbon Dioxide Anion Gap BUN Creatinine Estim Creat Clear Calc Estimated GFR Glucose POC Capillary Glucose Lactic Acid Calcium Magnesium Total Bilirubin AST ALT Alkaline Phosphatase Total Creatine Kinase Troponin I NT-Pro-B Natriuret Pep Total Protein Albumin Triglycerides Procalcitonin TSH (Reflex) Random Cortisol Urine Color Urine Appearance Urine pH Ur Specific Pinnacle Urine Protein Urine Glucose (UA) Urine Ketones Ur Blood (Man) Urine Nitrate Urine Bilirubin Urine Urobilinogen Add Ur Microanalysis Leukocyte Esterase Rfl Urine RBC Urine WBC Ur Squamous Epith Cells Urine Bacteria Urine Casts Hyaline Casts Ur Random Sodium 15 Ur Random Urea 589 Urine Creatinine 96.7 Nasal MRSA (PCR) Not detected Not detected HIV 1&2 Ab/P24 Ag 4thGn Influenza A (RT-PCR) Influenza B (RT-PCR) RSV (RT-PCR) SARS-CoV-2 RNA (RT-PCR) 06/03/24 06/04/24 06/04/24 23:48 02:15 05:00 WBC RBC Hgb Hct MCV MCH MCHC RDW Plt Count MPV Immature Gran % (Auto) Neut % (Auto) Lymph % (Auto) Travis % (Auto) Eos % (Auto) Baso % (Auto) Lymph # (Auto) Travis # (Auto) Eos # (Auto) Baso # (Auto) Abs Immat Gran (auto) Absolute Neuts (auto) Absolute Nucleated RBC Total Counted Neutrophils % (Manual) Band Neutrophils % Lymphocytes % (Manual) Monocytes % (Manual) Metamyelocytes % Myelocytes % Nucleated RBC % Abs Neuts (Manual) Abs Lymphs (Manual) Abs Monocytes (Manual) Nucleated RBCs Atypical Lymphocytes Dohle Bodies Platelet Estimate Large Platelets Anisocytosis Schistocytes PT INR APTT 56.6 H Puncture Site Left radial ABG pH 7.203 L* ABG pCO2 70.6 H* ABG pO2 149.6 H ABG PO2/FiO2 Ratio 2.30 ABG HCO3 27.2 H ABG O2 Saturation 98.4 ABG O2 Content 15.8 L ABG Base Excess -1.9 A-a Gradient 237.1 Oxyhemoglobin 98.5 Carboxyhemoglobin 0.3 Methemoglobin 0.2 Reduced Hemoglobin 1.0 Total Hemoglobin 11.2 L O2 Delivery Device Ventilator O2 Liters/Min Not Reportable Minute Volume Not Reportable Vent Rate 24 Vent Mode Cmv FiO2 65 Expiratory Pressure Tidal Volume 450 PEEP 15 Inspiratory Pressure Peak Inspir Pressure Not Reportable Pressure Support Not Reportable Sodium 122 L Potassium 3.6 Chloride 84 L Carbon Dioxide 27 Anion Gap 11 BUN 36 H Creatinine 1.54 H Estim Creat Clear Calc 50 Estimated GFR 49 L Glucose 122 H POC Capillary Glucose Lactic Acid Calcium 8.2 L Magnesium Total Bilirubin AST ALT Alkaline Phosphatase Total Creatine Kinase Troponin I 0.015 D NT-Pro-B Natriuret Pep Total Protein Albumin Triglycerides Procalcitonin TSH (Reflex) Random Cortisol Urine Color Urine Appearance Urine pH Ur Specific [place]acle Urine Protein Urine Glucose (UA) Urine Ketones Ur Blood (Man) Urine Nitrate Urine Bilirubin Urine Urobilinogen Add Ur Microanalysis Leukocyte Esterase Rfl Urine RBC Urine WBC Ur Squamous Epith Cells Urine Bacteria Urine Casts Hyaline Casts Ur Random Sodium Ur Random Urea Urine Creatinine Nasal MRSA (PCR) HIV 1&2 Ab/P24 Ag 4thGn Influenza A (RT-PCR) Influenza B (RT-PCR) RSV (RT-PCR) SARS-CoV-2 RNA (RT-PCR) 06/04/24 06/04/24 05:17 08:34 WBC 17.4 H RBC 3.37 L Hgb 10.3 L Hct 30.0 L MCV 89.0 MCH 30.6 MCHC 34.3 RDW 12.1 Plt Count 254 MPV 9.3 Immature Gran % (Auto) Not Reportable Neut % (Auto) Not Reportable Lymph % (Auto) Not Reportable Travis % (Auto) Not Reportable Eos % (Auto) Not Reportable Baso % (Auto) Not Reportable Lymph # (Auto) Not Reportable Travis # (Auto) Not Reportable Eos # (Auto) Not Reportable Baso # (Auto) Not Reportable Abs Immat Gran (auto) Not Reportable Absolute Neuts (auto) Not Reportable Absolute Nucleated RBC Not Reportable Total Counted 100 Neutrophils % (Manual) 85 H Band Neutrophils % 8 H Lymphocytes % (Manual) 7.0 L Monocytes % (Manual) Metamyelocytes % Myelocytes % Nucleated RBC % Not Reportable Abs Neuts (Manual) 16.18 H Abs Lymphs (Manual) 1.21 Abs Monocytes (Manual) Nucleated RBCs 1 Atypical Lymphocytes Dohle Bodies Platelet Estimate Adequate Large Platelets Present Anisocytosis 1+ Schistocytes None seen PT INR APTT 47.8 H Puncture Site ABG pH ABG pCO2 ABG pO2 ABG PO2/FiO2 Ratio ABG HCO3 ABG O2 Saturation ABG O2 Content ABG Base Excess A-a Gradient Oxyhemoglobin Carboxyhemoglobin Methemoglobin Reduced Hemoglobin Total Hemoglobin O2 Delivery Device O2 Liters/Min Minute Volume Vent Rate Vent Mode FiO2 Expiratory Pressure Tidal Volume PEEP Inspiratory Pressure Peak Inspir Pressure Pressure Support Sodium 120 L Potassium 3.8 Chloride 83 L Carbon Dioxide 28 Anion Gap 9 BUN 39 H Creatinine 1.68 H Estim Creat Clear Calc 46 Estimated GFR 44 L Glucose 171 H POC Capillary Glucose Lactic Acid 1.9 Calcium 8.0 L Magnesium 2.2 Total Bilirubin 0.9 AST 251 H ALT 76 H Alkaline Phosphatase 36 L Total Creatine Kinase Troponin I NT-Pro-B Natriuret Pep Total Protein 6.0 L Albumin 2.9 L Triglycerides Procalcitonin TSH (Reflex) Random Cortisol Urine Color Urine Appearance Urine pH Ur Specific [place]acle Urine Protein Urine Glucose (UA) Urine Ketones Ur Blood (Man) Urine Nitrate Urine Bilirubin Urine Urobilinogen Add Ur Microanalysis Leukocyte Esterase Rfl Urine RBC Urine WBC Ur Squamous Epith Cells Urine Bacteria Urine Casts Hyaline Casts Ur Random Sodium Ur Random Urea Urine Creatinine Nasal MRSA (PCR) HIV 1&2 Ab/P24 Ag 4thGn Influenza A (RT-PCR) Influenza B (RT-PCR) RSV (RT-PCR) SARS-CoV-2 RNA (RT-PCR) Quality VTE Prophylaxis VTE prophylaxis: pharmacologic ordered (currently on heparin drip)
[2024-06-04 12:04] LABS: Glucose Point of Care 180 mg/dl (65-105)
[2024-06-04] MEDS: NOREPINEPHRINE 8 MG/D5W 250 ML 8 MG/250 ML BAG 24.38 MG IV CONT (13:56)
[2024-06-04 14:37] LABS: Alveolar/Arterial O2 Gradient 191.1 mmHg; Base Excess ABG 2.9 mEq/l (+/-2.0); Fractional Inspired Oxygen 50 %; HCO3 ABG 27.4 mEq/l (22.0-26.0); Oxygen Content ABG 15.2 %vol (16.0-22.0); Oxygen Saturation ABG 98.4 % (95.0-100.0); Oxyhemoglobin 98.1 % THb (90.0-100.0); PCO2 ABG 41.8 mmHg (35.0-45.0); PO2 ABG 118.4 mmHg (80.0-100.0); PO2 FiO2 Ratio Arterial Blood 2.37 %; Total Hemoglobin 10.9 g/dL (12.0-18.0); pH ABG 7.434 (7.350-7.450)
[2024-06-04 14:39] LABS: Device VENTILATOR; Site Drawn LEFT RADIAL
[2024-06-04 14:40] LABS: Arterial Blood Gas PEEP 12 cmH2O; Arterial Blood Gas Tidal Volume 450 ml; Arterial Blood Gas Vent Mode CMV; Arterial Blood Gas Ventilator rate 28 /MIN
[2024-06-04] MEDS: CEFEPIME 2 GM/NS 50 ML 2 GM/50 ML BAG IVPB (15:00)
[2024-06-04] MEDS: VANCOMYCIN 1,500 MG/NS 500 ML 1,500 MG/500 ML BAG 250 MG IVPB (15:00)
[2024-06-04 16:06] LABS: Partial Thromboplastin Time 59.7 Seconds (22.3-36.8)
--- NOTE | 2024-06-04 16:28 | PM.CNCAR ---
Assessment and Plan Assessment and plan (1) Atrial fibrillation with rapid ventricular response: Code(s): I48.91 - Unspecified atrial fibrillation Status: Acute (2) Septic shock: Code(s): A41.9 - Sepsis, unspecified organism; R65.21 - Severe sepsis with septic shock Status: Acute (3) Hypertension: Code(s): I10 - Essential (primary) hypertension Status: Acute (4) SABA (acute kidney injury): Code(s): N17.9 - Acute kidney failure, unspecified Status: Acute (5) Elevated brain natriuretic peptide (BNP) level: Code(s): R79.89 - Other specified abnormal findings of blood chemistry Status: Acute (6) Tobacco abuse: Code(s): Z72.0 - Tobacco use Status: Acute (7) Alcohol abuse: Code(s): F10.10 - Alcohol abuse, uncomplicated Status: Acute (8) Schizophrenia: Code(s): F20.9 - Schizophrenia, unspecified Status: Acute (9) Anemia: Code(s): D64.9 - Anemia, unspecified Status: Acute (10) Multifocal pneumonia: Code(s): J18.9 - Pneumonia, unspecified organism Status: Acute (11) Acute respiratory failure with hypoxia: Code(s): J96.01 - Acute respiratory failure with hypoxia Status: Acute (12) Hyponatremia: Code(s): E87.1 - Hypo-osmolality and hyponatremia Status: Acute Plan AFib with RVR: -Agree with amiodarone drip for rate control of atrial fibrillation with RVR. Unable to use beta-laura, calcium channel blockers due to hypotension -After amiodarone drip for 24 hours, switch to p.o. amiodarone 400 mg b.i.d. times 7 days, then amiodarone 200 mg daily -Continue heparin drip -TTE -check TSH, free T3 and T4 -Check and replace electrolytes to keep K greater than 4 and Mg greater than 2 Management of other medical problems per primary team History of Present Illness History of Present Illness Consult date/time: 06/04/24 16:28 Reason For Visit: Multifocal pneumonia, Afib with RVR, resp distress Narrative: Mr. Gold is a 49-year-old male with a past medical history of HTN (not on home medications), alcohol and tobacco abuse, and psychiatry disorder who was brought from [facility] with hypoxia with oxygen sats down to the 50s-60s. Patient is intubated and sedated and history is obtained from the medical chart. Patient was in a psych [facility] prior to being transferred to [facility] 2 weeks ago. Patient had fever, body aches, shortness of breath, cough with yellow sputum prior to presentation. In the ER he was noted to be very short of breath requiring BiPAP of 14/7 at 90% FiO2 and high respiratory rate in the 40s. Patient was unable to speak full sentences. He was then intubated due to respiratory failure. His chest x-ray shows bilateral pneumonia and lab work came back positive for influenza A. He is being treated with IV antibiotics. He is hypotensive with SBP in the 80s-100s range requiring Levophed and vasopressin drips. In the ER, he was also noted to have AFib with RVR. He was started on heparin infusion and was successfully cardioverted into sinus rhythm. He however reverted back to atrial fibrillation this morning and was started on amiodarone drip. Review of Systems Review of Systems: A complete review of systems could not be obtained as patient is intubated. [facility] Past Medical History Medical History Alcohol abuse Tobacco abuse Schizophrenia Hypertension Social History Social History Social History: Surrogate medical decision maker: Kaveh Gold, father ([phone]). Code status: Do not resuscitate. Smoking status: Current every day smoker Additional smoking assessment comments: Unknown how much patient smokes daily Alcohol intake: current Substance use: unknown Additional living arrangements comments: Up until recently was living in an apartment above the dad's garage. He has 1 brother. No children. Additional occupation/education comments: On disability due to mental health conditions. Spiritual care concerns: No Meds Home Medications and Allergies Home Medications ?Medication ?Instructions ?Recorded ?Confirmed ?Type cephalexin 500 mg capsule 500 mg PO Q12H 7 days #14 caps 07/12/21 Rx Allergies Allergy/AdvReac Type Severity Reaction Status Date / Time Sulfa (Sulfonamide Allergy rash Verified 06/03/24 12:19 Antibiotics) Vital Signs Vital Signs - 24 hr 02/23/25 16:47 06/03/24 16:54 06/03/24 16:57 Temperature Pulse Rate 138 H 138 H 141 H Respiratory Rate 32 H 31 H Blood Pressure Pulse Oximetry Oxygen Delivery Fraction of Inspired Oxygen 06/03/24 17:42 06/03/24 17:45 06/03/24 17:46 Temperature Pulse Rate 127 H 132 H 126 H Respiratory Rate 27 H 33 H 29 H Blood Pressure 77/58 L 72/42 L 81/72 L Pulse Oximetry 82 L 78 L Oxygen Delivery Fraction of Inspired Oxygen 06/03/24 17:46 06/03/24 17:46 06/03/24 18:00 Temperature Pulse Rate 129 H 127 H 129 H Respiratory Rate 35 H 24 H Blood Pressure 68/37 L 68/37 L Pulse Oximetry 78 L Oxygen Delivery Fraction of Inspired Oxygen 06/03/24 18:00 06/03/24 18:00 06/03/24 18:24 Temperature 38.5 C H Pulse Rate 128 H 130 H Respiratory Rate 24 H 24 H Blood Pressure 100/71 Pulse Oximetry 86 L 89 L Oxygen Delivery Mechanical Ventilation Fraction of Inspired Oxygen 100 06/03/24 18:24 06/03/24 18:30 06/03/24 18:48 Temperature Pulse Rate 129 H 126 H 128 H Respiratory Rate 24 H Blood Pressure 99/70 L Pulse Oximetry 92 Oxygen Delivery Mechanical Ventilation Fraction of Inspired Oxygen 100 06/03/24 18:57 06/03/24 19:30 06/03/24 20:00 Temperature Pulse Rate 131 H 132 H 130 H Respiratory Rate 24 H 24 H Blood Pressure 88/59 L Pulse Oximetry 95 Oxygen Delivery Fraction of Inspired Oxygen 100 06/03/24 20:00 06/03/24 20:00 06/03/24 20:00 Temperature Pulse Rate 130 H 127 H 127 H Respiratory Rate 24 H 24 H Blood Pressure 104/70 104/70 Pulse Oximetry Oxygen Delivery Fraction of Inspired Oxygen 06/03/24 20:00 06/03/24 20:00 06/03/24 20:00 Temperature Pulse Rate 125 H 125 H 127 H Respiratory Rate 24 H 24 H Blood Pressure Pulse Oximetry 97 97 Oxygen Delivery Mechanical Ventilation Fraction of Inspired Oxygen 100 100 06/03/24 20:30 06/03/24 21:00 06/03/24 21:20 Temperature 38.1 C H Pulse Rate 125 H 124 H 118 H Respiratory Rate 24 H 24 H Blood Pressure 119/63 105/62 Pulse Oximetry 98 Oxygen Delivery Fraction of Inspired Oxygen 06/03/24 21:45 06/03/24 21:51 06/03/24 22:00 Temperature 37.3 C Pulse Rate 118 H 123 H 120 H Respiratory Rate 24 H 24 H Blood Pressure 109/70 109/73 Pulse Oximetry 96 Oxygen Delivery Fraction of Inspired Oxygen 06/03/24 22:00 06/03/24 22:00 06/03/24 22:00 Temperature Pulse Rate 119 H 120 H 120 H Respiratory Rate 24 H 24 H Blood Pressure 109/73 Pulse Oximetry 96 Oxygen Delivery Fraction of Inspired Oxygen 80 06/03/24 22:00 06/03/24 22:00 06/03/24 22:00 Temperature Pulse Rate 120 H 120 H 119 H Respiratory Rate 24 H 24 H Blood Pressure 109/73 109/73 Pulse Oximetry Oxygen Delivery Fraction of Inspired Oxygen 06/03/24 22:00 06/03/24 22:24 06/03/24 22:30 Temperature Pulse Rate 121 H 123 H 118 H Respiratory Rate 24 H Blood Pressure 110/78 Pulse Oximetry Oxygen Delivery Fraction of Inspired Oxygen 06/03/24 22:43 06/03/24 22:45 06/03/24 23:00 Temperature Pulse Rate 123 H 118 H 120 H Respiratory Rate Blood Pressure 114/76 114/75 Pulse Oximetry 96 Oxygen Delivery Mechanical Ventilation Fraction of Inspired Oxygen 80 06/03/24 23:00 06/03/24 23:15 06/04/24 00:00 Temperature 37.7 C H Pulse Rate 123 H 135 H Respiratory Rate 24 H Blood Pressure 114/77 104/67 Pulse Oximetry 97 Oxygen Delivery Fraction of Inspired Oxygen 75 06/04/24 00:00 06/04/24 00:00 06/04/24 00:00 Temperature Pulse Rate 139 H 147 H Respiratory Rate 24 H 24 H Blood Pressure Pulse Oximetry 97 97 Oxygen Delivery Mechanical Ventilation Fraction of Inspired Oxygen 70 70 70 06/04/24 00:00 06/04/24 00:01 06/04/24 00:01 Temperature Pulse Rate 126 H 129 H 125 H Respiratory Rate 24 H Blood Pressure 104/67 Pulse Oximetry Oxygen Delivery Fraction of Inspired Oxygen 06/04/24 00:01 06/04/24 00:01 06/04/24 00:01 Temperature Pulse Rate 129 H 129 H 127 H Respiratory Rate 24 H 24 H Blood Pressure 104/67 104/67 Pulse Oximetry Oxygen Delivery Fraction of Inspired Oxygen 06/04/24 00:18 06/04/24 00:18 06/04/24 01:01 Temperature Pulse Rate 147 H 147 H 123 H Respiratory Rate 24 H Blood Pressure 114/65 114/65 Pulse Oximetry Oxygen Delivery Fraction of Inspired Oxygen 06/04/24 01:15 06/04/24 01:35 06/04/24 01:48 Temperature Pulse Rate 123 H 123 H 150 H Respiratory Rate 24 H 24 H Blood Pressure Pulse Oximetry 96 Oxygen Delivery Mechanical Ventilation Fraction of Inspired Oxygen 70 06/04/24 01:49 06/04/24 02:00 06/04/24 02:00 Temperature Pulse Rate 140 H 150 H 140 H Respiratory Rate 24 H Blood Pressure 103/81 103/81 Pulse Oximetry Oxygen Delivery Fraction of Inspired Oxygen 06/04/24 02:00 06/04/24 02:00 06/04/24 02:00 Temperature Pulse Rate 140 H 140 H 140 H Respiratory Rate 24 H 24 H Blood Pressure 103/81 103/81 Pulse Oximetry Oxygen Delivery Fraction of Inspired Oxygen 06/04/24 02:00 06/04/24 02:00 06/04/24 02:00 Temperature 37.4 C Pulse Rate 140 H 140 H 140 H Respiratory Rate 24 H Blood Pressure 103/81 95/69 L Pulse Oximetry 97 Oxygen Delivery Fraction of Inspired Oxygen 06/04/24 02:30 06/04/24 02:57 06/04/24 02:57 Temperature Pulse Rate 140 H 134 H 134 H Respiratory Rate Blood Pressure 91/67 L 95/69 L 95/69 L Pulse Oximetry Oxygen Delivery Fraction of Inspired Oxygen 06/04/24 03:30 06/04/24 03:39 06/04/24 03:39 Temperature Pulse Rate 136 H 134 H Respiratory Rate 24 H Blood Pressure 85/68 L Pulse Oximetry 97 Oxygen Delivery Fraction of Inspired Oxygen 65 65 06/04/24 03:40 06/04/24 04:00 06/04/24 04:00 Temperature Pulse Rate 136 H 132 H 132 H Respiratory Rate 24 H 24 H Blood Pressure 112/59 L Pulse Oximetry 97 Oxygen Delivery Mechanical Ventilation Fraction of Inspired Oxygen 65 06/04/24 04:00 06/04/24 04:00 06/04/24 04:00 Temperature Pulse Rate 136 H 136 H 136 H Respiratory Rate 24 H 24 H Blood Pressure 112/59 L 112/59 L Pulse Oximetry Oxygen Delivery Fraction of Inspired Oxygen 06/04/24 04:00 06/04/24 04:00 06/04/24 04:00 Temperature 37.4 C Pulse Rate 136 H 145 H 133 H Respiratory Rate 24 H Blood Pressure 112/59 L 112/59 L Pulse Oximetry 97 Oxygen Delivery Fraction of Inspired Oxygen 06/04/24 04:39 06/04/24 04:39 06/04/24 05:01 Temperature Pulse Rate 122 H 122 H 131 H Respiratory Rate 24 H 24 H 24 H Blood Pressure 94/59 L 94/59 L Pulse Oximetry Oxygen Delivery Fraction of Inspired Oxygen 06/04/24 05:01 06/04/24 05:25 06/04/24 05:26 Temperature Pulse Rate 131 H 136 H 123 H Respiratory Rate 24 H Blood Pressure 95/62 L Pulse Oximetry 96 Oxygen Delivery Mechanical Ventilation Fraction of Inspired Oxygen 65 06/04/24 06:00 06/04/24 06:00 06/04/24 06:00 Temperature 37.3 C Pulse Rate 132 H 132 H 130 H Respiratory Rate 24 H 24 H Blood Pressure 98/74 L Pulse Oximetry 94 Oxygen Delivery Fraction of Inspired Oxygen 06/04/24 06:00 06/04/24 06:00 06/04/24 06:00 Temperature Pulse Rate 130 H 130 H 130 H Respiratory Rate 24 H Blood Pressure 98/74 L 98/74 L Pulse Oximetry Oxygen Delivery Fraction of Inspired Oxygen 06/04/24 06:00 06/04/24 06:00 06/04/24 06:09 Temperature Pulse Rate 130 H 130 H 132 H Respiratory Rate 24 H Blood Pressure 98/74 L 98/74 L Pulse Oximetry Oxygen Delivery Fraction of Inspired Oxygen 06/04/24 06:16 06/04/24 06:18 06/04/24 06:18 Temperature Pulse Rate 134 H 130 H 130 H Respiratory Rate 24 H 24 H Blood Pressure Pulse Oximetry 95 Oxygen Delivery Mechanical Ventilation Fraction of Inspired Oxygen 50 06/04/24 08:00 06/04/24 08:00 06/04/24 08:00 Temperature 37.5 C Pulse Rate 123 H 123 H Respiratory Rate 98 H 28 H Blood Pressure 97/66 L Pulse Oximetry 96 97 96 Oxygen Delivery Mechanical Ventilation Fraction of Inspired Oxygen 50 50 06/04/24 08:00 06/04/24 08:00 06/04/24 08:00 Temperature Pulse Rate 123 H 123 H Respiratory Rate Blood Pressure 97/66 L 97/66 L Pulse Oximetry Oxygen Delivery Fraction of Inspired Oxygen 50 06/04/24 08:00 06/04/24 08:00 06/04/24 08:00 Temperature Pulse Rate 123 H 123 H 123 H Respiratory Rate 28 H 28 H 28 H Blood Pressure 97/66 L Pulse Oximetry Oxygen Delivery Fraction of Inspired Oxygen 06/04/24 08:00 06/04/24 08:33 06/04/24 08:33 Temperature Pulse Rate 123 H 120 H 120 H Respiratory Rate 28 H Blood Pressure 97/66 L Pulse Oximetry 97 Oxygen Delivery Mechanical Ventilation Fraction of Inspired Oxygen 50 06/04/24 09:34 06/04/24 09:58 06/04/24 10:00 Temperature Pulse Rate 112 H 104 H 113 H Respiratory Rate 28 H Blood Pressure 96/66 L 109/97 H 109/97 H Pulse Oximetry Oxygen Delivery Fraction of Inspired Oxygen 06/04/24 10:00 06/04/24 10:00 06/04/24 10:00 Temperature Pulse Rate 113 H 113 H 113 H Respiratory Rate 28 H 28 H 28 H Blood Pressure 109/97 H Pulse Oximetry Oxygen Delivery Fraction of Inspired Oxygen 06/04/24 10:00 06/04/24 10:00 06/04/24 10:00 Temperature 37.4 C Pulse Rate 113 H 112 H 103 H Respiratory Rate 28 H Blood Pressure 109/97 H 109/97 H Pulse Oximetry 97 Oxygen Delivery Fraction of Inspired Oxygen 06/04/24 10:53 06/04/24 11:25 06/04/24 11:28 Temperature Pulse Rate 107 H 115 H 115 H Respiratory Rate Blood Pressure 91/74 L 91/74 L Pulse Oximetry 98 Oxygen Delivery Mechanical Ventilation Fraction of Inspired Oxygen 50 06/04/24 12:00 06/04/24 12:00 06/04/24 12:00 Temperature Pulse Rate 118 H 118 H 118 H Respiratory Rate 28 H Blood Pressure 105/78 105/78 Pulse Oximetry Oxygen Delivery Fraction of Inspired Oxygen 06/04/24 12:00 06/04/24 12:00 06/04/24 12:00 Temperature Pulse Rate 118 H 118 H 118 H Respiratory Rate 28 H 28 H Blood Pressure 105/78 105/78 Pulse Oximetry Oxygen Delivery Fraction of Inspired Oxygen 06/04/24 12:00 06/04/24 12:00 06/04/24 12:00 Temperature 37.6 C Pulse Rate 114 H 118 H 118 H Respiratory Rate 28 H 28 H 28 H Blood Pressure 105/78 Pulse Oximetry 97 94 94 Oxygen Delivery Mechanical Ventilation Fraction of Inspired Oxygen 50 50 06/04/24 12:00 06/04/24 12:00 06/04/24 13:40 Temperature Pulse Rate 113 H 115 H Respiratory Rate Blood Pressure 95/65 L Pulse Oximetry Oxygen Delivery Fraction of Inspired Oxygen 50 06/04/24 13:56 06/04/24 14:00 06/04/24 14:00 Temperature Pulse Rate 115 H 109 H 109 H Respiratory Rate Blood Pressure 95/65 L 100/78 100/78 Pulse Oximetry Oxygen Delivery Fraction of Inspired Oxygen 06/04/24 14:00 06/04/24 14:00 06/04/24 14:00 Temperature Pulse Rate 109 H 109 H 109 H Respiratory Rate 28 H 28 H 28 H Blood Pressure 100/78 Pulse Oximetry Oxygen Delivery Fraction of Inspired Oxygen 06/04/24 14:00 06/04/24 14:00 06/04/24 14:00 Temperature 37.6 C H Pulse Rate 109 H 107 H 109 H Respiratory Rate 28 H 28 H Blood Pressure 100/78 100/78 Pulse Oximetry 96 95 Oxygen Delivery Fraction of Inspired Oxygen 50 06/04/24 14:00 06/04/24 15:00 06/04/24 15:11 Temperature Pulse Rate 109 H 120 H 110 H Respiratory Rate 28 H Blood Pressure Pulse Oximetry 95 Oxygen Delivery Mechanical Ventilation Fraction of Inspired Oxygen 50 06/04/24 16:00 06/04/24 16:00 06/04/24 16:00 Temperature 37.4 C Pulse Rate 109 H 109 H Respiratory Rate 28 H 28 H Blood Pressure 106/78 Pulse Oximetry 92 96 Oxygen Delivery Mechanical Ventilation Fraction of Inspired Oxygen 50 50 06/04/24 16:00 06/04/24 16:00 06/04/24 16:00 Temperature Pulse Rate 90 109 H 109 H Respiratory Rate Blood Pressure 106/78 106/78 Pulse Oximetry Oxygen Delivery Fraction of Inspired Oxygen 06/04/24 16:00 06/04/24 16:00 06/04/24 16:00 Temperature Pulse Rate 109 H 109 H 109 H Respiratory Rate 28 H 28 H 28 H Blood Pressure 106/78 Pulse Oximetry Oxygen Delivery Fraction of Inspired Oxygen 06/04/24 16:00 Temperature Pulse Rate 109 H Respiratory Rate Blood Pressure 106/78 Pulse Oximetry Oxygen Delivery Fraction of Inspired Oxygen Exam Narrative: General: Intubated, sedated, paralyzed, in prone position HEENT: Pupils equal and reactive, sclera is clear Lungs/Chest: Bilateral coarse breath sounds, bilateral rales Cardiac: Irregularly irregular, no murmur Abdomen: Could not assess as patient is in prone position Extremities: No clubbing, cyanosis or edema. Warm : Jimenez in place Neurologic: Intubated, sedated Skin: No Rash or erythema Results Labs and Meds 06/04/24 05:17 06/04/24 05:17 Lab results: Cardiac Enzymes 06/03/24 06/03/24 06/03/24 Range/Units 18:19 18:20 23:48 AST 94 H Cancelled (17-59) U/L Troponin I 0.028 D 0.015 D (0.000-0.034) ng/mL 06/04/24 Range/Units 05:17 AST 251 H (17-59) U/L Troponin I (0.000-0.034) ng/mL Coagulation 06/03/24 06/04/24 06/04/24 Range/Units 18:20 02:15 08:34 APTT 33.4 56.6 H 47.8 H (22.3-36.8) Seconds 06/04/24 Range/Units 15:44 APTT 59.7 H (22.3-36.8) Seconds CBC 06/03/24 06/04/24 Range/Units 18:20 05:17 WBC 10.5 H 17.4 H (4.5-10.0) K/mm3 RBC 3.75 L 3.37 L (4.6-6.20) M/mm3 Hgb 11.6 L 10.3 L (14.0-18.0) g/dL Hct 32.6 L 30.0 L (42.0-52.0) % Plt Count 308 254 (150-375) k/mm3 Lymph # (Auto) Not Reportable Not Reportable [place] # (Auto) Not Reportable Not Reportable Eos # (Auto) Not Reportable Not Reportable Baso # (Auto) Not Reportable Not Reportable Comprehensive Metabolic Panel 06/03/24 06/03/24 06/03/24 Range/Units 18:19 18:20 23:48 Sodium 121 L Cancelled 122 L (137-145) mmol/L Potassium 3.8 Cancelled 3.6 (3.4-5.0) mmol/L Chloride 83 L Cancelled 84 L (98-107) mmol/L Carbon Dioxide 29 Cancelled 27 (22-30) mmol/L BUN 38 H Cancelled 36 H (9-20) mg/dL Creatinine 1.37 H Cancelled 1.54 H (0.7-1.3) mg/dL Glucose 99 Cancelled 122 H (65-110) mg/dL Calcium 7.9 L Cancelled 8.2 L (8.4-10.2) mg/dL AST 94 H Cancelled (17-59) U/L ALT 36 Cancelled (6-50) U/L Alkaline Phosphatase 35 L Cancelled (38-126) U/L Total Protein 6.0 L Cancelled (6.3-8.2) g/dL Albumin 2.7 L Cancelled (3.5-5.1) g/dL 06/04/24 Range/Units 05:17 Sodium 120 L (137-145) mmol/L Potassium 3.8 (3.4-5.0) mmol/L Chloride 83 L (98-107) mmol/L Carbon Dioxide 28 (22-30) mmol/L BUN 39 H (9-20) mg/dL Creatinine 1.68 H (0.7-1.3) mg/dL Glucose 171 H (65-110) mg/dL Calcium 8.0 L (8.4-10.2) mg/dL AST 251 H (17-59) U/L ALT 76 H (6-50) U/L Alkaline Phosphatase 36 L (38-126) U/L Total Protein 6.0 L (6.3-8.2) g/dL Albumin 2.9 L (3.5-5.1) g/dL Intake and Output 06/04/24 06/04/24 06/04/24 07:59 15:59 23:59 Intake Total 1777.5 225.5 Output Total 925 Balance 852.5 225.5 Intake: IV 1777.5 2002.9 225.5 Albumin Human 5% 25 gm In 500 500 ml @ 125 mls/hr IV CONT .Q4H ONE Rx#:[id number] Amiodarone 360 mg/D5w 200 ml 142.8 265.1 66.7 360 mg In 200 ml @ 1 MG/MIN 33. 333 mls/hr IV CONT .Q6H [facility] Rx# :[id number] Cisatracurium Besylate 200 mg 52.8 50.1 13.2 In Dextrose 5% 80 ml @ 3 MCG/KG /MIN 6.579 mls/hr IV CONT . [id number] [facility] Rx#:[id number] Fentanyl 2,500Mcg/Di164nr(*Crx 150.5 160 40 2,500 mcg In 250 ml @ 200 MCG/ HR 20 mls/hr IV CONT .[id number] [facility] Rx#:[id number] Heparin Sod/D5w 100 Units/ml 25 155.2 149.1 40 ,000 units In 250 ml @ 1,700 UNITS/HR 17 mls/hr IV CONT . [id number] [facility] Rx#:[id number] Midazolam 100Mg/Ns 100Ml(*Crx) 49.8 46.2 12 100 mg In 100 ml @ 6 MG/HR 6 mls/hr IV CONT .[id number] [facility] Rx# :[id number] Norepinephrine 8 mg/D5w 250 ml 150.5 178.2 48.8 8 mg In 250 ml @ 13 MCG/MIN 24. 375 mls/hr IV CONT .[id number] [facility] Rx#:[id number] Sodium Chloride 0.45% 1,000 ml 356.7 623.3 @ 100 mls/hr IV CONT .Q10H [facility] Rx#:[id number] Sodium Chloride 0.9% IV 1,000 411.7 ml @ 100 mls/hr IV CONT .Q10H [facility] Rx#:[id number] Vasopressin Inj 100 units In 19.2 19.2 4.8 Dextrose 5% 95 ml @ 0.04 UNITS/ MIN 2.4 mls/hr IV CONT .[id number] [facility] Rx#:[id number] Calcium Gluc 2,000 mg/Ns 100Ml 100 2,000 mg In 100 ml @ 100 mls/hr IVPB ONCE ONE Rx#:[id number] Cefepime 1 gm/Ns 50 ml 1 gm In 50 50 ml @ 100 mls/hr IVPB Q12H [facility] Rx#:[id number] Cefepime 2 gm/Ns 50 ml 2 gm In 50 50 ml @ 100 mls/hr IVPB Q12H [facility] Rx#:[id number] Doxycycline 100 mg/Ns 100 ml 100 100 mg In 100 ml @ 100 mls/hr IVPB Q12H [facility] Rx#:[id number] Tube Feeding 0 Tube Flush 0 Output: Catheter Urine 525 Urethral Catheter 525 Gastric Drainage 400 [place]mer Sump Oral 400 Other: Number of Bowel Movements Today 0 Patient Weight 06/04/24 23:59 Weight 74.6 kg
[2024-06-04] MEDS: HEPARIN SOD/D5W 100 UNITS/ML 25,000 UNITS/250 ML BAG 21 UNITS IV CONT (17:07)
[2024-06-04 17:31] LABS: Glucose Point of Care 193 mg/dl (65-105)
[2024-06-04] MEDS: NOREPINEPHRINE 8 MG/D5W 250 ML 8 MG/250 ML BAG 20.63 MG IV CONT (22:00)
[2024-06-04 22:29] LABS: Partial Thromboplastin Time 53.6 Seconds (22.3-36.8)
[2024-06-05] VITALS (57 sets, daily range): BP systolic 94–123; BP diastolic 56–87; PULSE 76–893; RESP 24–28; TEMP 37.1–37.9; O2SAT 96–100
--- NOTE | 2024-06-05 | ECHO_ITS ---
Patient Info Name: Sergio Gold Age: 49 years : 1975 Gender: Male Ht: 67 in Wt: 165 lbs BSA: 1.89 m2 HR: 89 bpm BP: 108 / 56 mmHg Heart Rhythm: Sinus Rhythm Technical Quality: Good Exam Date: 06/05/2024 9:20 AM Exam Location: Echo Lab Exam Room: ICU 8 Patient Status: Inpatient Admit Date: 06/03/2024 Staff Ordering Physician: Carlos Enrique Camarillo MD Parachute Crown Sewer: Malathi Reddy RDCS Attending Provider: Jim Hicks MD Exam Type: CA echo doppler color flow Study Info Indications - CHF Complete two-dimensional, color flow and Doppler transthoracic echocardiogram is performed. Summary 1. Left ventricular chamber dimension is normal. 2. Left ventricular systolic function is moderately reduced, estimated at 30-35%. 3. There is mildly increased left ventricular wall thickness. 4. The left ventricular diastolic function is grade I diastolic dysfunction. 5. Right ventricular systolic function is normal. 6. There is mild mitral valve regurgitation. 7. There is mild tricuspid valve regurgitation. 8. Estimated pulmonary arterial systolic pressure is 34 mmHg. Left Ventricle Left ventricular chamber dimension is normal. Left ventricular systolic function is moderately reduced, estimated at 30-35%. There is mildly increased left ventricular wall thickness. The left ventricular diastolic function is grade I diastolic dysfunction. Right Ventricle Right ventricular chamber dimension is normal. Right ventricular systolic function is normal. Left Atria Left atrial chamber dimension is normal. Right Atria Right atrial chamber dimension is normal. Atrial Septum Intact interatrial septum visualized by color flow imaging. Aortic Valve The aortic valve is probable trileaflet. There is no aortic valve stenosis. There is no aortic valve regurgitation. Pulmonic Valve The pulmonic valve is not well visualized. There is no pulmonic regurgitation. Mitral Valve There is mild mitral valve regurgitation. Tricuspid Valve There is mild tricuspid valve regurgitation. Estimated pulmonary arterial systolic pressure is 34 mmHg. Pericardium/Pleural There is no pericardial effusion. Inferior Vena Cava Dilated inferior vena cava with no collapse upon inspiration consistent with elevated right atrial pressure, 15 mmHg. Aorta The aortic root size at the sinus of Valsalva is normal. Left Ventricular Outflow Tract Name Value Normal LVOT 2D LVOT Diameter 2.3 cm LVOT Doppler LVOT Peak Gradient 2 mmHg LVOT Mean Gradient 1 mmHg LVOT VTI 17 cm LVOT VTI/AV VTI Ratio 0.7 LVOT Stroke Volume 67 ml LVOT CO 12.9 l/min LVOT CI 6.8 l/min/m2 Pulmonic Valve Name Value Normal PV Doppler PV Peak Gradient 5 mmHg Mitral Valve Name Value Normal MV Doppler MV Peak Gradient 4 mmHg MV Mean Gradient 1 mmHg MV Decel Crockett 289 cm/s2 MV PHT 70 ms MV Area (PHT) 3.2 cm2 4.0-5.0 MV Area (Cont Eq VTI) 2.6 cm2 MV Regurgitation Doppler MR Peak Gradient 43 mmHg MV Diastolic Function MV E Peak Velocity 69 cm/s MV A Peak Velocity 66 cm/s MV E/A 1.1 MV Decel Time 240 ms MV Annular TDI MV E/e' (Septal) 10.9 <=8.0 MV E/e' (Lateral) 8.2 <=8.0 MV E/e' (Average) 9.5 Tricuspid Valve Name Value Normal TV Regurgitation Doppler TR Peak Velocity 220 cm/s TR Peak Gradient 19 mmHg Estimated PAP/RSVP RA Pressure 15 mmHg <=5 PA Systolic Pressure 34 mmHg <36 RV Systolic Pressure 34 mmHg <36 Aortic Valve Name Value Normal AV Doppler AV Peak Velocity 126 cm/s AV Peak Gradient 5 mmHg AV Mean Gradient 3 mmHg AV VTI 23 cm AV Area (Cont Eq VTI) 3.0 cm2 >=3.0 AV Area (Cont Eq Christiano) 2.7 cm2 AV Regurgitation 2D LVOT Area 4.0 cm2 Ventricles Name Value Normal LV Dimensions 2D/MM IVS Diastolic Thickness (2D) 0.9 cm 0.6-1.0 LVID Diastole (2D) 6.0 cm 4.2-5.8 LVIW Diastolic Thickness (2D) 0.8 cm 0.6-1.0 LVID Systole (2D) 5.2 cm 2.5-4.0 LVOT Diameter 2.3 cm LV Mass (2D Cubed) 199.27 g 88.00-224.00 LV Mass Index (2D Cubed) 105 g/m2 49-115 Relative Wall Thickness (2D) 0.28 LV Fractional Shortening/Ejection Fraction 2D/MM LV Fractional Shortening (2D) 14 % 25-43 LV EF (2D Teicholz) 29 % 52-72 LV Diastolic Volume (4C MOD) 178 ml LV EF (4C MOD) 38 % LV Diastolic Length (4C) 9.6 cm LV Systolic Length (4C) 8.2 cm LV Stroke Volume (4C MOD) 67 ml Atria Name Value Normal LA Dimensions LA Volume (4C A-L) 83 ml RA Dimensions RA Area (4C) 15.9 cm2 <=18.0 Report Signatures
[2024-06-05 00:29] LABS: Glucose Point of Care 230 mg/dl (65-105)
[2024-06-05] MEDS: INSULIN ASPART (*BKC) 100 UNITS/ML SUB-Q (00:30)
[2024-06-05] MEDS: IPRATROPIUM 0.5 MG/ALBUTEROL SULFATE 2.5 MG AMPUL.NEB 3 ML INHALATION ×4 (02:10→19:48)
[2024-06-05] MEDS: CEFEPIME 2 GM/NS 50 ML 2 GM/50 ML BAG IVPB ×2 (03:02→14:00)
[2024-06-05] MEDS: DOXYCYCLINE 100 MG/NS 100 ML 100 MG/100 ML BAG IVPB ×2 (03:28→15:27)
[2024-06-05] MEDS: HEPARIN SOD/D5W 100 UNITS/ML 25,000 UNITS/250 ML BAG 24 UNITS IV CONT (04:33)
[2024-06-05] MEDS: AMIODARONE 360 MG/D5W 200 ML 360 MG/200 ML BAG 33.33 MG IV CONT (04:36)
[2024-06-05 05:05] LABS: Alveolar/Arterial O2 Gradient 131.7 mmHg; Base Excess ABG 2.4 mEq/l (+/-2.0); Carboxyhemoglobin 0.3 % THb (0-2.0); Device VENTILATOR; Fractional Inspired Oxygen 40 %; HCO3 ABG 28.1 mEq/l (22.0-26.0); Methemoglobin ABG 0.1 %THb (0-1.5); Modified Allen's Test Unable to perform; Oxygen Content ABG 15.6 %vol (16.0-22.0); Oxygen Saturation ABG 97.2 % (95.0-100.0); Oxyhemoglobin 97.3 % THb (90.0-100.0); PCO2 ABG 48.6 mmHg (35.0-45.0); PO2 ABG 97.6 mmHg (80.0-100.0); PO2 FiO2 Ratio Arterial Blood 2.44 %; Reduced Hemoglobin 2.3 %THb (0-5.0); Site Drawn RIGHT RADIAL; Total Hemoglobin 11.3 g/dL (12.0-18.0)
[2024-06-05 05:06] LABS: Arterial Blood Gas PEEP 12 cmH2O; Arterial Blood Gas Tidal Volume 400 ml; Arterial Blood Gas Vent Mode CMV; Arterial Blood Gas Ventilator rate 28 /MIN
[2024-06-05] MEDS: VASOPRESSIN INJ 100 UNITS in DEXTROSE 5% 95 ML IV CONT (05:31)
[2024-06-05] MEDS: HYDROCORTISONE SODIUM SUCCINATE 100 MG/2 ML VIAL IV PUSH ×3 (05:31→20:55)
[2024-06-05] MEDS: CENTRAL LINE FLUSH 10 ML IV PUSH ×3 (05:31→20:55)
[2024-06-05] MEDS: FENTANYL 2,500MCG/NS250ML(*CRX 2,500 MCG/250 ML BAG 20 MCG IV CONT (05:32)
[2024-06-05 05:45] LABS: Partial Thromboplastin Time 67.2 Seconds (22.3-36.8)
[2024-06-05] MEDS: HEPARIN SODIUM 5,000 UNITS/ML VIAL 3000 UNITS IV PUSH (05:57)
[2024-06-05 06:06] LABS: Alanine Aminotransferase 112 U/L (6-50); Albumin Level 2.8 g/dL (3.5-5.1); Alkaline Phosphatase 56 U/L (38-126); Anion Gap 12 mmol/L (4-12); Aspartate Amino Transferase 374 U/L (17-59); Bilirubin,Total 0.8 mg/dL (0.2-1.3); Blood Urea Nitrogen 55 mg/dL (9-20); Calcium 7.9 mg/dL (8.4-10.2); Carbon Dioxide 29 mmol/L (22-30); Chloride 81 mmol/L (98-107); Estimated CRCL calculation 46 ml/min; Estimated Glomerular Filt Rate 44; Glucose 172 mg/dL (65-110); Magnesium 2.3 mg/dL (1.6-2.3); Phosphorus 3.8 mg/dL (2.5-4.5); Potassium 3.3 mmol/L (3.4-5.0); Sodium 122 mmol/L (137-145)
[2024-06-05 06:46] LABS: Hematocrit 27.9 % (42.0-52.0); Hemoglobin 9.8 g/dL (14.0-18.0); Mean Corpuscular HGB Conc 35.1 g/dl (32-36); Mean Corpuscular Hemoglobin 30.7 pg (26-34); Mean Corpuscular Volume 87.5 fl (80-100); Mean Platelet Volume 9.9 fl (7.4-10.4); Platelet Count Result 217 k/mm3 (150-375); Red Blood Count 3.19 M/mm3 (4.6-6.20); White Blood Count 23.6 K/mm3 (4.5-10.0)
[2024-06-05 07:06] LABS: Band Neutrophils Percent 14 % (0-6); Lymphocytes Absolute Manual 0.23 K/mm3 (1.1-4.5); Monocytes Absolute Manual 0.47 K/mm3 (0.1-0.90); Monocytes Percent Manual 2 % (3-9); Neutrophils Absolute Manual 22.89 K/mm3 (1.3-6.7); Neutrophils Percent Manual 83 % (46-73); Platelet Estimate Adequate (Adequate); Schistocytes None Seen; Total Cells Counted 100
[2024-06-05] MEDS: CISATRACURIUM BESYLATE 200 MG in DEXTROSE 5% 80 ML 6.58 ML IV CONT ×2 (07:33→22:00)
[2024-06-05] MEDS: PANTOPRAZOLE SODIUM IV 40 MG VIAL IV PUSH (07:48)
[2024-06-05] MEDS: MINERAL OIL/WHITE PETROLATUM OINTMENT 1 APPLIC EACH EYE ×2 (07:48→20:55)
[2024-06-05] MEDS: OSELTAMIVIR PHOSPHATE ORAL SUSP 30 MG/5 ML SYRINGE FEED TUBE ×2 (07:49→20:54)
[2024-06-05] MEDS: KCL 40 MEQ/WATER 100 ML 100 ML 25 ML IVPB (08:43)
--- NOTE | 2024-06-05 09:17 | P.PNNP_ITS ---
Progress Note: A&P Assessment and Plan (1) SABA (acute kidney injury): Code(s): N17.9 - Acute kidney failure, unspecified Status: Acute Assessment and Plan: * relatively stable * outpatient labs reviewed: * creatinine 0.97mg/dl on 12/26/23 * creatinie 0.82mg/dl on 10/19/22 * noted admission creatinine of 1.54mg/dl * suspect multifactorial etiology: * prerenal factors/hypovolemia * infection/sepsis * hemodynamic instability * hypoxia * contrast (although creatinine elevated before exposure -- could hamper recovery) * other(?) * evaluation to date noted: * CT without evidence of obstruction * UA with blood and protein but no infection * urine electrolytes prerenal * CPK normal * s/p IVF resuscitation * follow repeat labs and UOP (2) Hyponatremia: Code(s): E87.1 - Hypo-osmolality and hyponatremia Status: Acute Assessment and Plan: * acute * outpatient labs reviewed: * sodium 137mmol/L on 12/26/23 * sodium 140mmol/L on 10/19/22 * admission sodium 117mmol/L * etiology not entirely clear: * volume depletion? * excess free water intake? * possible medications? * secondary to acute/chronic lung disease (known smoker x 25 years) * SIADH? * s/p IVF resuscitation * hold further IVFs at this time * evaluation to date noted: * TSH okay * cortisol elevated (but also on steroids) * serum/urine osmolality, SPEP/UPEP & kappa/lambda ratio pending * goal of therapy is a change in sodium no more than 8mmol/24 hours * follow trend of serial sodium levels (3) Septic shock: Code(s): A41.9 - Sepsis, unspecified organism; R65.21 - Severe sepsis with septic shock Status: Acute Assessment and Plan: * as noted by hypotension unresponsive to IVFs * requiring vasopressor therapy to maintain MAP * wean as tolerated * thought to be secondary to pneumonia +/- influenza * culture data noted: * blood cultures (06/03) with Streptococcus pneumoniae * follow repeat cultures * on antibiotics * on stress dose steroids (4) Acute respiratory failure with hypoxia: Code(s): J96.01 - Acute respiratory failure with hypoxia Status: Acute Assessment and Plan: * thought to be secondary to pneumonia +/- influenza * intubated in the ER due to worsening hypoxia and tachypnea (impending respiratory failure) * prone positioning to assist with oxygenation - back to supine position * viral testing negative for RSV and COVID * requiring sedation along with paralytics for ventilator synchrony * continue supportive therapy (5) Multifocal pneumonia: Code(s): J18.9 - Pneumonia, unspecified organism Status: Acute Assessment and Plan: * as noted by admission imaging * continue therapy as outlined (6) Atrial fibrillation with rapid ventricular response: Code(s): I48.91 - Unspecified atrial fibrillation Status: Acute Assessment and Plan: * failed rate control measures with IV metoprolol and cardizem * s/p dC cardioversion with return with brief return to NSR * on heparin gtt and amiodarone gtt * Cardiology following * Echo pending (7) Influenza A: Code(s): J10.1 - Influenza due to other identified influenza virus with other respiratory manifestations Status: Acute Assessment and Plan: * positive testing in ER * on Tamiflu (8) Schizophrenia: Code(s): F20.9 - Schizophrenia, unspecified Status: Acute Assessment and Plan: * known history * unclear what medication he was taking... Will continue to follow. L Subjective Date/time seen: 06/05/24 09:17 Interval history: Follow-up for acute kidney injury/acute renal failure and acute hyponatremia. Remains intubated/sedated/paralyzed and on mechanical ventilation; remains on vasopressor therapy but ongoing weaning noted; transitioned to supine positioning yesterday evening; stable renal function and urine output; slow improvement in sodium level noted as well. Exam 2 Narrative: General: middle aged male intubated/sedated/paralyzed and on mechanical ventilation Heart:IRRR normal S1 and S2; no rub Lungs: coarse breath sounds with scattered rales Abdomen: soft, nontender, nondistended, decreased bowel sounds Extremities: no cyanosis or clubbing; no edema Skin: warm and dry Objective Data Vital Signs Vital Signs: Vital Signs Temp Pulse Resp BP Pulse Ox O2 Del Method FiO2 06/05/24 09:02 89 28 H 06/05/24 09:01 89 28 H 06/05/24 09:00 89 120/74 06/05/24 08:37 88 28 H 06/05/24 08:37 88 97 Mechanical Ventilation 40 06/05/24 08:06 99 108/56 L 02/25/25 08:02 99 108/56 L 06/05/24 08:00 99.9 F H 93 28 H 108/56 L 97 06/05/24 08:00 40 06/05/24 08:00 89 06/05/24 08:00 99 28 H 108/56 L 06/05/24 08:00 99 28 H 06/05/24 08:00 99 28 H 06/05/24 08:00 99 108/56 L 06/05/24 07:33 89 28 H 105/72 06/05/24 07:33 89 28 H 105/72 06/05/24 06:00 99.6 F 90 28 H 105/56 L 97 06/05/24 06:00 91 06/05/24 06:00 89 102/56 L 06/05/24 06:00 91 28 H 06/05/24 06:00 93 28 H 06/05/24 06:00 90 28 H 102/56 L 06/05/24 06:00 90 102/56 L 06/05/24 06:00 87 102/56 L 06/05/24 05:32 88 28 H 06/05/24 05:32 88 28 H 06/05/24 05:31 93 94/64 L 06/05/24 05:31 93 94/64 L 06/05/24 05:01 103 H 100 Mechanical Ventilation 40 06/05/24 05:00 90 121/77 06/05/24 04:36 106 H 103/85 06/05/24 04:36 106 H 103/85 06/05/24 04:00 113 H 06/05/24 04:00 98.9 F 105 H 28 H 101/74 98 06/05/24 04:00 115 H 28 H 06/05/24 04:00 111 H 28 H 101/74 06/05/24 04:00 102 H 101/74 06/05/24 04:00 101 H 28 H 06/05/24 04:00 113 H 101/74 06/05/24 04:00 102 H 101/74 06/05/24 03:57 95 28 H 98 Mechanical Ventilation 40 06/05/24 03:57 40 06/05/24 02:18 87 28 H 06/05/24 02:13 88 28 H 100/69 06/05/24 02:10 84 97 Mechanical Ventilation 40 06/05/24 02:10 84 28 H 06/05/24 02:00 98.9 F 88 28 H 101/72 98 06/05/24 02:00 92 06/05/24 02:00 88 28 H 06/05/24 02:00 88 100/69 06/05/24 02:00 88 28 H 06/05/24 02:00 87 100/69 06/05/24 02:00 88 100/69 06/05/24 00:01 87 28 H 06/05/24 00:01 87 24 H 97/68 L 06/05/24 00:01 87 97/68 L 06/05/24 00:01 86 28 H 06/05/24 00:01 87 97/68 L 06/05/24 00:01 92 97/68 L 06/05/24 00:00 92 06/05/24 00:00 98.7 F 92 28 H 97/68 L 97 06/05/24 00:00 87 24 H 96 Mechanical Ventilation 40 06/05/24 00:00 40 06/04/24 23:15 98.5 F 114 H 28 H 99/77 L 96 06/04/24 23:10 121 H 112/61 06/04/24 23:08 121 H 112/61 06/04/24 23:05 124 H 97 Mechanical Ventilation 45 06/04/24 23:00 98.4 F 102 H 25 H 112/61 96 06/04/24 22:00 117 H 06/04/24 22:00 120 H 28 H 120/70 06/04/24 22:00 112 H 120/70 06/04/24 22:00 117 H 28 H 06/04/24 22:00 108 H 120/70 06/04/24 22:00 110 H 120/70 06/04/24 22:00 107 H 120/70 06/04/24 22:00 116 H 28 H 06/04/24 22:00 116 H 28 H 06/04/24 21:15 77 28 H 06/04/24 21:09 76 28 H 06/04/24 20:05 74 98 Mechanical Ventilation 50 06/04/24 20:00 88 06/04/24 20:00 96 Mechanical Ventilation 50 06/04/24 20:00 50 06/04/24 20:00 91 28 H 106/73 06/04/24 20:00 91 106/73 06/04/24 20:00 91 28 H 06/04/24 20:00 91 28 H 06/04/24 20:00 112 H 106/73 06/04/24 20:00 91 106/73 06/04/24 19:30 98.2 F 83 28 H 107/59 L 97 06/04/24 19:00 98.3 F 80 28 H 107/60 97 06/04/24 18:00 99 06/04/24 18:00 99 28 H 108/76 06/04/24 18:00 99 108/76 06/04/24 18:00 99 28 H 06/04/24 18:00 99 28 H 06/04/24 18:00 99 108/76 06/04/24 18:00 99 108/76 06/04/24 18:00 98.4 F 89 28 H 108/76 98 06/04/24 17:16 82 98 Mechanical Ventilation 50 06/04/24 17:14 101 H 28 H 101/86 06/04/24 17:14 101 H 28 H 101/86 06/04/24 17:08 93 28 H 06/04/24 17:08 93 28 H 06/04/24 17:08 107 H 101/86 06/04/24 17:08 107 H 101/86 06/04/24 16:00 109 H 106/78 06/04/24 16:00 109 H 28 H 06/04/24 16:00 109 H 28 H 106/78 06/04/24 16:00 109 H 28 H 06/04/24 16:00 109 H 106/78 06/04/24 16:00 109 H 106/78 06/04/24 16:00 90 06/04/24 16:00 99.3 F 109 H 28 H 106/78 96 06/04/24 16:00 50 06/04/24 16:00 109 H 28 H 92 Mechanical Ventilation 50 06/04/24 15:11 110 H 28 H 06/04/24 15:00 120 H 95 Mechanical Ventilation 50 06/04/24 14:00 109 H 06/04/24 14:00 109 H 28 H 95 50 06/04/24 14:00 99.7 F H 107 H 28 H 100/78 96 06/04/24 14:00 109 H 100/78 06/04/24 14:00 109 H 28 H 06/04/24 14:00 109 H 28 H 100/78 06/04/24 14:00 109 H 28 H 06/04/24 14:00 109 H 100/78 06/04/24 14:00 109 H 100/78 06/04/24 13:56 115 H 95/65 L 06/04/24 13:40 115 H 95/65 L 06/04/24 12:00 113 H 06/04/24 12:00 50 06/04/24 12:00 118 H 28 H 94 50 06/04/24 12:00 118 H 28 H 94 Mechanical Ventilation 50 06/04/24 12:00 99.6 F 114 H 28 H 105/78 97 06/04/24 12:00 118 H 105/78 06/04/24 12:00 118 H 28 H 105/78 06/04/24 12:00 118 H 28 H 06/04/24 12:00 118 H 28 H 06/04/24 12:00 118 H 105/78 06/04/24 12:00 118 H 105/78 06/04/24 11:28 115 H 91/74 L 06/04/24 11:25 115 H 91/74 L 06/04/24 10:53 107 H 98 Mechanical Ventilation 50 Intake/Output Intake/Output: Intake & Output 06/02/24 06/03/24 06/04/24 06/05/24 23:59 23:59 23:59 23:59 Intake Total 3632.5 5338.0 1341.2 Output Total 1375 500 Balance 3632.5 3963.0 841.2 Meds/Results Medications: Active Medications Generic Name Dose Route Start Last Admin Trade Name Freq PRN Reason Stop Dose Admin Acetaminophen 650 mg 06/03/24 13:56 Acetaminophen Elixir 325 Mg/10.15 Ml Udc FEED TUBE Q4H PRN Fever Albuterol/Ipratropium 3 ml 06/03/24 13:50 Ipratropium 0.5 Mg/Albuterol Sulfate 2.5 Mg Ampul.Neb 3 Ml INHALATION Q6HRT PRN Wheezng Albuterol/Ipratropium 3 ml 06/03/24 20:00 06/05/24 08:36 Ipratropium 0.5 Mg/Albuterol Sulfate 2.5 Mg Ampul.Neb 3 Ml INHALATION 3 ml Q6HRT ARABELLA Administration Dextrose 12.5 gm 06/03/24 13:46 Dextrose 50% 25 Gm/50 Ml Syringe IV PUSH PRN PRN Hypoglycemia Protocol Glucagon 1 mg 06/03/24 13:46 Glucagon For Inj 1 Mg Vial IM PRN PRN Hypoglycemia Protocol Glucose 15 gm 06/03/24 13:46 Glucose Oral Gel 15 Gm Of Glucse In 37.5 Gm Tube PO PRN PRN Hypoglycemia Protocol Heparin Sodium (Porcine) 6,000 units 06/03/24 12:33 06/04/24 23:06 Heparin Sodium 5,000 Units/Ml Vial IV PUSH 6,000 units PRN PRN Administration aPTT less than 55 seconds Heparin Sodium (Porcine) 3,000 units 06/03/24 12:33 06/05/24 05:57 Heparin Sodium 5,000 Units/Ml Vial IV PUSH 3,000 units PRN PRN Administration aPTT 55 - 70 seconds Hydrocortisone Sodium Succinate 100 mg 06/03/24 22:00 06/05/24 05:31 Hydrocortisone Sodium Succinate 100 Mg/2 Ml Vial IV PUSH 100 mg Q8HR ARABELLA Administration Heparin Sodium/Dextrose 25,000 units in 250 mls @ 25 mls/hr 06/03/24 12:35 06/05/24 08:00 Heparin Sodium/D5w 100 Units/Ml IV CONT 2,500 units/hr .Q10H ARABELLA 25 mls/hr Titration Protocol 2,500 UNITS/HR Dextrose 1,000 mls @ 100 mls/hr 06/03/24 13:46 Dextrose 5% 1,000 Ml IVPB PRN PRN Hypoglycemia Protocol Fentanyl Citrate 2,500 mcg in 250 mls @ 17.5 mls/hr 06/03/24 13:50 06/05/24 10:00 Fentanyl 2,500 Mcg/Ns 250 Ml IV CONT 175 mcg/hr .[id number] ARABELLA 17.5 mls/hr Titration Protocol 175 MCG/HR Midazolam HCl 100 mg in 100 mls @ 4 mls/hr 06/03/24 13:50 06/05/24 10:00 Versed 100 Mg/Ns 100 Ml IV CONT 4 mg/hr .Q25H ARABELLA 4 mls/hr Titration Protocol 4 MG/HR Doxycycline Hyclate 100 mg in 100 mls @ 100 mls/hr 06/03/24 16:00 06/05/24 04:28 Vibramycin 100 Mg/Ns 100 Ml IVPB Infused Q12H ARABELLA Infusion Vancomycin HCl 1,500 mg in 500 mls @ 250 mls/hr 06/04/24 15:00 06/04/24 17:18 Vancomycin 1,500 Mg/Ns 500 Ml IVPB Infused Q24H ARABELLA Infusion Cisatracurium Besylate 200 mg/ 100 mls @ 6.579 mls/hr 06/03/24 17:45 06/05/24 10:00 Dextrose IV CONT 3 mcg/kg/min .[id number] ARABELLA 6.58 mls/hr Titration Protocol 3 MCG/KG/MIN Norepinephrine Bitartrate 8 mg in 250 mls @ 11.25 mls/hr 06/03/24 17:50 06/05/24 10:31 Levophed 8 Mg/D5w 250 Ml IV CONT 5 mcg/min .[id number] ARABELLA 9.38 mls/hr Titration Protocol 6 MCG/MIN Vasopressin 100 units/ 100 mls @ 2.4 mls/hr 06/03/24 20:25 06/05/24 10:00 Dextrose IV CONT 0.04 units/min .[id number] ARABELLA 2.4 mls/hr Infusion Protocol 0.04 UNITS/MIN Amiodarone HCl/Dextrose 360 mg in 200 mls @ 16.667 mls/hr 06/04/24 01:55 06/05/24 10:00 Nexterone 360 Mg/D5w 200 Ml IV CONT 0.5 mg/min .Q12H ARABELLA 16.67 mls/hr Infusion Protocol 0.5 MG/MIN Cefepime HCl 2 gm in 50 mls @ 100 mls/hr 06/04/24 15:00 06/05/24 03:32 Maxipime 2 Gm/Ns 50 Ml IVPB Infused Q12H ARABELLA Infusion Potassium Chloride 100 mls @ 25 mls/hr 06/05/24 07:58 06/05/24 08:43 Kcl 40 Meq/Water 100 Ml IVPB 06/05/24 11:57 25 mls/hr ONCE ONE Administration Insulin Aspart 3 - 6 units 06/03/24 18:00 06/05/24 06:20 Insulin Aspart (*Bkc) 100 Units/Ml SUB-Q Not Given Q6HR ARABELLA Protocol Midazolam HCl 2 mg 06/03/24 13:48 06/03/24 16:40 Midazolam Hcl (*Crx) 2 Mg/2 Ml Vial IV PUSH 2 mg Q5M PRN Administration ventilator asynchrony Multi-Ingred Cream/Lotion/Oil/Oint 1 applic 06/03/24 14:00 06/05/24 07:48 Mineral Oil/White Petrolatum Ointment EACH EYE 1 applic Q12HR ARABELLA Administration Oseltamivir Phosphate 30 mg 06/04/24 09:00 06/05/24 07:49 Oseltamivir Phosphate Oral Susp 30 Mg/5 Ml Syringe FEED TUBE 06/09/24 08:59 30 mg Q12HR ARABELLA Administration Pantoprazole Sodium 40 mg 06/04/24 09:00 06/05/24 07:48 Pantoprazole Sodium Iv 40 Mg Vial IV PUSH 40 mg QAM ARABELLA Administration Perflutren Lipid Microsphere 0 ml 06/03/24 13:51 Perflutren Lipid Microspheres 1.5 Ml Vial Diluted To 10 Ml Total Volume IV PUSH 06/06/24 13:52 ONCE PRN adequate visualization Protocol Sodium Chloride 10 ml 06/03/24 22:00 06/05/24 05:31 Central Line Flush IV PUSH 10 ml Q8HR ARABELLA Administration Sodium Chloride 20 ml 06/03/24 19:36 Central Line Flush IV PUSH PRN PRN after blood draws Radiology Results: ITS Impressions Chest/Abdomen/Pelvis CT 06/03/24 17:44 IMPRESSION: Dense bilateral pulmonary infiltrates. Loculated dense effusion within the left upper lobe, similar to what one might see with an adjacent fracture. Although, significant respiratory artifact renders this evaluation limited. Perhaps once adequate resuscitation has been performed and lung findings are improving repeat imaging may be attempted with intravenous contrast, in order to evaluate for the presence or absence of acute traumatic injury. Hepatosplenomegaly. Free fluid within the deep pelvis, never a normal finding in a male patient. Chest X-Ray 06/05/24 06:22 Impression: Multilobar bilateral pneumonia, worsened from prior exam. Support tubes, as above. Abdomen Ultrasound 06/05/24 08:52 IMPRESSION: 1. Small volume of ascites. Labs Labs: Laboratory Tests 06/05/24 05:15 06/05/24 05:15 Calcium 7.9 L Phosphorus 3.8 Magnesium 2.3 Total Bilirubin 0.8 AST 374 H ALT 112 H Alkaline Phosphatase 56 Total Protein 6.0 L Microbiology 06/03/24 12:45 Blood Blood Culture - Preliminary Streptococcus pneumoniae 06/03/24 12:45 Blood Blood Culture - Final Streptococcus pneumoniae
[2024-06-05 09:53] LABS: Hepatitis B Surface Antigen Negative (Negative)
[2024-06-05 09:58] LABS: HAV RESULT Negative (Negative); Hepatitis B Core IgM Result Negative (Negative)
[2024-06-05 10:10] LABS: Hepatitis C Virus Antibody Negative (Negative)
--- NOTE | 2024-06-05 11:39 | WPDINTPN ---
Progress Note: A&P Assessment and Plan (1) Acute respiratory failure: Code(s): J96.00 - Acute respiratory failure, unspecified whether with hypoxia or hypercapnia Status: Acute Assessment and Plan: Acute respiratory failure secondary to pneumonia -06/03: intubated in the ER -patient remains on CMV mode of ventilation, peep of 12 and 50% FiO2 this morning -in prone position since 6:00 p.m. on 06/03 -patient placed in supine position on 06/04 evening - chest x-ray this morning: Multilobar bilateral pneumonia, worsened from prior exam -influenza A positive -negative for COVID, RSV -urine Legionella and pneumococcal antigen obtained and pending, -mycoplasma pneumonia pending -continue bronchodilators -sedated with fentanyl, Versed. Also paralyzed with Nimbex for ventilator synchrony 06/03/2024: CT chest, abdomen, pelvis IMPRESSION: Dense bilateral pulmonary infiltrates. Loculated dense effusion within the left upper lobe, similar to what one might see with an adjacent fracture. Although, significant respiratory artifact renders this evaluation limited. Perhaps once adequate resuscitation has been performed and lung findings are improving repeat imaging may be attempted with intravenous contrast, in order to evaluate for the presence or absence of acute traumatic injury. Hepatosplenomegaly. Free fluid within the deep pelvis, never a normal finding in a male patient. (2) Septic shock: Code(s): A41.9 - Sepsis, unspecified organism; R65.21 - Severe sepsis with septic shock Status: Acute Assessment and Plan: Patient with hypotension, refractory to IV fluids, -etiology likely related to pneumonia, UA was unremarkable -patient received adequate amount of IV fluids -06/03: blood cultures growing -Streptococcus pneumonia 2/2 bottles -lactic acid has normalized -continue vancomycin cefepime and doxycycline (06/03) -currently on Levophed and vasopressin MAP > 65 mm Hg or SBP > 100 mm Hg -continue stress dose steroids (06/03) (3) Pneumonia: Code(s): J18.9 - Pneumonia, unspecified organism Status: Acute Assessment and Plan: See above (4) Hyponatremia: Code(s): E87.1 - Hypo-osmolality and hyponatremia Status: Acute Assessment and Plan: Hyponatremia with sodium levels of 117 on admission Etiology is not clear at this point in this could be secondary to excessive water intake. This could also be secondary to SIADH, congestive heart failure, SSRI, increased water intake -patient received adequate IV fluids -could will discontinue maintenance IV fluids, discussed with Nephrology -nephrology following the patient and appreciate the evaluation and recommendations -continue to monitor sodium levels (5) SABA (acute kidney injury): Code(s): N17.9 - Acute kidney failure, unspecified Status: Acute Assessment and Plan: Baseline creatinine unknown Presented with creatinine of 1.5 for which could be secondary to sepsis and hypovolemia Status post IV fluids Appreciate nephrology following the patient 06/03: CTA chest abdomen pelvis did not show any hydronephrosis renal calculi Jimenez in place, urine output has been low Urine lytes reflective of prerenal picture, patient has had adequate IV fluids, now in ARDS, (6) Atrial fibrillation with RVR: Code(s): I48.91 - Unspecified atrial fibrillation Status: Acute Assessment and Plan: Status post DC cardioversion in ER. Currently on heparin infusion. -appreciate cardiology evaluation and recommendations -patient received amiodarone bolus x2, now on amiodarone at 0.5 mg/min -patient on pressors, unable to add any diltiazem or metoprolol 06/05/2024: Echocardiogram Summary 1. Left ventricular chamber dimension is normal. 2. Left ventricular systolic function is moderately reduced, estimated at 30-35%. 3. There is mildly increased left ventricular wall thickness. 4. The left ventricular diastolic function is grade I diastolic dysfunction. 5. Right ventricular systolic function is normal. 6. There is mild mitral valve regurgitation. 7. There is mild tricuspid valve regurgitation. 8. Estimated pulmonary arterial systolic pressure is 34 mmHg. (7) Elevated brain natriuretic peptide (BNP) level: Code(s): R79.89 - Other specified abnormal findings of blood chemistry Status: Acute Assessment and Plan: Patient has elevated BNP of 4190, although no evidence of volume overload from exam CT chest showed multifocal pneumonia Check echocardiogram Cautious IV fluid (8) Hypertension: Code(s): I10 - Essential (primary) hypertension Status: Acute Assessment and Plan: Hold all antihypertensives as patient is on pressors (9) Influenza A: Code(s): J10.1 - Influenza due to other identified influenza virus with other respiratory manifestations Status: Acute Assessment and Plan: Patient was tested positive for influenza A, on Tamiflu (10) Schizophrenia: Code(s): F20.9 - Schizophrenia, unspecified Status: Acute Assessment and Plan: History of schizophrenia and other behavior issues Unknown if he takes any medications Plan DVT prophylaxis -heparin infusion for AFib RVR Stress ulcer prophylaxis -Protonix Nutrition: NPO Code Status -DNR Total Critical Care Time - 43 minutes Due to a high probability of clinically significant, life threatening deterioration, the patient required my highest level of preparedness to intervene emergently and I personally spent this critical care time directly and personally managing the patient. This critical care time included obtaining a history; examining the patient; pulse oximetry; ordering and review of studies; arranging urgent treatment with development of a management plan; evaluation of patient's response to treatment; frequent reassessment; and discussions with other providers. It was exclusive of separately billable procedures and treating other patients and teaching time. Please see Assessment and Plan section and the rest of the note for further information on patient assessment and treatment This dictation may have been done utilizing a voice recognition system. Attempts have been made to correct errors. However, there may be uncorrected grammatical, spelling, and recognitions errors present. Subjective Date/time seen: 06/05/24 11:39 Interval history: Reason for consult: Acute respiratory failure, pneumonia, bacteremia, acute kidney injury, hyponatremia, AFib RVR status post DC cardioversion 06/05/2024: Patient seen and examined the ICU, remains intubated on CMV mode of ventilation, peep of 12, 40% FiO2. Patient was placed in supine position last evening. Remains on fentanyl and Versed infusion for sedation. Nimbex 0 ventilator synchrony. Morning ABGs showed improved oxygenation and ventilation. Weaning Levophed, remains on vasopressin Urine output has been adequate, BUN and creatinine are elevated but stable. White blood cell count has increased to 23.6 this morning. LFTs also increasing. Review of Systems Review of Systems: ROS unobtainable: Yes unobtainable due to medical condition and unobtainable due to mental status Exam Narrative: General: Intubated, sedated, paralyzed, in supine position HEENT: Pupils equal and reactive, sclera is clear Lungs/Chest: Coarse breath sounds bilaterally right worse than left, bilateral rales, decreased breath sounds at bases, otherwise adequate air entry Cardiac: Is regularly irregular, tachycardic Circulation: Pedal pulses are intact and symmetrical. Abdomen: Soft, nontender, nondistended, hypoactive bowel sounds Extremities: Full 1+ edema bilateral lower extremities : Jimenez in place Neurologic: Intubated, sedated, paralyzed with Nimbex. Skin: No Rash Objective Data Vital Signs Vital Signs: Vital Signs - 24 hr 06/04/24 12:00 06/04/24 12:00 06/04/24 12:00 Temperature Pulse Rate 118 H 118 H 118 H Respiratory Rate 28 H Blood Pressure 105/78 105/78 Pulse Oximetry Oxygen Delivery Fraction of Inspired Oxygen 06/04/24 12:00 06/04/24 12:00 06/04/24 12:00 Temperature Pulse Rate 118 H 118 H 118 H Respiratory Rate 28 H 28 H Blood Pressure 105/78 105/78 Pulse Oximetry Oxygen Delivery Fraction of Inspired Oxygen 06/04/24 12:00 06/04/24 12:00 06/04/24 12:00 Temperature 99.6 F Pulse Rate 114 H 118 H 118 H Respiratory Rate 28 H 28 H 28 H Blood Pressure 105/78 Pulse Oximetry 97 94 94 Oxygen Delivery Mechanical Ventilation Fraction of Inspired Oxygen 50 50 06/04/24 12:00 06/04/24 12:00 06/04/24 13:40 Temperature Pulse Rate 113 H 115 H Respiratory Rate Blood Pressure 95/65 L Pulse Oximetry Oxygen Delivery Fraction of Inspired Oxygen 50 06/04/24 13:56 06/04/24 14:00 06/04/24 14:00 Temperature Pulse Rate 115 H 109 H 109 H Respiratory Rate Blood Pressure 95/65 L 100/78 100/78 Pulse Oximetry Oxygen Delivery Fraction of Inspired Oxygen 06/04/24 14:00 06/04/24 14:00 06/04/24 14:00 Temperature Pulse Rate 109 H 109 H 109 H Respiratory Rate 28 H 28 H 28 H Blood Pressure 100/78 Pulse Oximetry Oxygen Delivery Fraction of Inspired Oxygen 06/04/24 14:00 06/04/24 14:00 06/04/24 14:00 Temperature 99.7 F H Pulse Rate 109 H 107 H 109 H Respiratory Rate 28 H 28 H Blood Pressure 100/78 100/78 Pulse Oximetry 96 95 Oxygen Delivery Fraction of Inspired Oxygen 50 06/04/24 14:00 06/04/24 15:00 06/04/24 15:11 Temperature Pulse Rate 109 H 120 H 110 H Respiratory Rate 28 H Blood Pressure Pulse Oximetry 95 Oxygen Delivery Mechanical Ventilation Fraction of Inspired Oxygen 50 06/04/24 16:00 06/04/24 16:00 06/04/24 16:00 Temperature 99.3 F Pulse Rate 109 H 109 H Respiratory Rate 28 H 28 H Blood Pressure 106/78 Pulse Oximetry 92 96 Oxygen Delivery Mechanical Ventilation Fraction of Inspired Oxygen 50 50 06/04/24 16:00 06/04/24 16:00 06/04/24 16:00 Temperature Pulse Rate 90 109 H 109 H Respiratory Rate Blood Pressure 106/78 106/78 Pulse Oximetry Oxygen Delivery Fraction of Inspired Oxygen 06/04/24 16:00 06/04/24 16:00 06/04/24 16:00 Temperature Pulse Rate 109 H 109 H 109 H Respiratory Rate 28 H 28 H 28 H Blood Pressure 106/78 Pulse Oximetry Oxygen Delivery Fraction of Inspired Oxygen 06/04/24 16:00 06/04/24 17:08 06/04/24 17:08 Temperature Pulse Rate 109 H 107 H 107 H Respiratory Rate Blood Pressure 106/78 101/86 101/86 Pulse Oximetry Oxygen Delivery Fraction of Inspired Oxygen 06/04/24 17:08 06/04/24 17:08 06/04/24 17:14 Temperature Pulse Rate 93 93 101 H Respiratory Rate 28 H 28 H 28 H Blood Pressure 101/86 Pulse Oximetry Oxygen Delivery Fraction of Inspired Oxygen 06/04/24 17:14 06/04/24 17:16 06/04/24 18:00 Temperature 98.4 F Pulse Rate 101 H 82 89 Respiratory Rate 28 H 28 H Blood Pressure 101/86 108/76 Pulse Oximetry 98 98 Oxygen Delivery Mechanical Ventilation Fraction of Inspired Oxygen 50 06/04/24 18:00 06/04/24 18:00 06/04/24 18:00 Temperature Pulse Rate 99 99 99 Respiratory Rate 28 H Blood Pressure 108/76 108/76 Pulse Oximetry Oxygen Delivery Fraction of Inspired Oxygen 06/04/24 18:00 06/04/24 18:00 06/04/24 18:00 Temperature Pulse Rate 99 99 99 Respiratory Rate 28 H 28 H Blood Pressure 108/76 108/76 Pulse Oximetry Oxygen Delivery Fraction of Inspired Oxygen 06/04/24 18:00 06/04/24 19:00 06/04/24 19:30 Temperature 98.3 F 98.2 F Pulse Rate 99 80 83 Respiratory Rate 28 H 28 H Blood Pressure 107/60 107/59 L Pulse Oximetry 97 97 Oxygen Delivery Fraction of Inspired Oxygen 06/04/24 20:00 06/04/24 20:00 06/04/24 20:00 Temperature Pulse Rate 91 112 H 91 Respiratory Rate 28 H Blood Pressure 106/73 106/73 Pulse Oximetry Oxygen Delivery Fraction of Inspired Oxygen 06/04/24 20:00 06/04/24 20:00 06/04/24 20:00 Temperature Pulse Rate 91 91 91 Respiratory Rate 28 H 28 H Blood Pressure 106/73 106/73 Pulse Oximetry Oxygen Delivery Fraction of Inspired Oxygen 06/04/24 20:00 06/04/24 20:00 06/04/24 20:00 Temperature Pulse Rate 88 Respiratory Rate Blood Pressure Pulse Oximetry 96 Oxygen Delivery Mechanical Ventilation Fraction of Inspired Oxygen 50 50 06/04/24 20:05 06/04/24 21:09 06/04/24 21:15 Temperature Pulse Rate 74 76 77 Respiratory Rate 28 H 28 H Blood Pressure Pulse Oximetry 98 Oxygen Delivery Mechanical Ventilation Fraction of Inspired Oxygen 50 06/04/24 22:00 06/04/24 22:00 06/04/24 22:00 Temperature Pulse Rate 116 H 116 H 107 H Respiratory Rate 28 H 28 H Blood Pressure 120/70 Pulse Oximetry Oxygen Delivery Fraction of Inspired Oxygen 06/04/24 22:00 06/04/24 22:00 06/04/24 22:00 Temperature Pulse Rate 110 H 108 H 117 H Respiratory Rate 28 H Blood Pressure 120/70 120/70 Pulse Oximetry Oxygen Delivery Fraction of Inspired Oxygen 06/04/24 22:00 06/04/24 22:00 06/04/24 22:00 Temperature Pulse Rate 112 H 120 H 117 H Respiratory Rate 28 H Blood Pressure 120/70 120/70 Pulse Oximetry Oxygen Delivery Fraction of Inspired Oxygen 06/04/24 23:00 06/04/24 23:05 06/04/24 23:08 Temperature 98.4 F Pulse Rate 102 H 124 H 121 H Respiratory Rate 25 H Blood Pressure 112/61 112/61 Pulse Oximetry 96 97 Oxygen Delivery Mechanical Ventilation Fraction of Inspired Oxygen 45 06/04/24 23:10 06/04/24 23:15 06/05/24 00:00 Temperature 98.5 F Pulse Rate 121 H 114 H Respiratory Rate 28 H Blood Pressure 112/61 99/77 L Pulse Oximetry 96 Oxygen Delivery Fraction of Inspired Oxygen 40 06/05/24 00:00 06/05/24 00:00 06/05/24 00:00 Temperature 98.7 F Pulse Rate 87 92 92 Respiratory Rate 24 H 28 H Blood Pressure 97/68 L Pulse Oximetry 96 97 Oxygen Delivery Mechanical Ventilation Fraction of Inspired Oxygen 40 06/05/24 00:01 06/05/24 00:01 06/05/24 00:01 Temperature Pulse Rate 92 87 86 Respiratory Rate 28 H Blood Pressure 97/68 L 97/68 L Pulse Oximetry Oxygen Delivery Fraction of Inspired Oxygen 06/05/24 00:01 06/05/24 00:01 06/05/24 00:01 Temperature Pulse Rate 87 87 87 Respiratory Rate 24 H 28 H Blood Pressure 97/68 L 97/68 L Pulse Oximetry Oxygen Delivery Fraction of Inspired Oxygen 06/05/24 02:00 06/05/24 02:00 06/05/24 02:00 Temperature Pulse Rate 88 87 88 Respiratory Rate 28 H Blood Pressure 100/69 100/69 Pulse Oximetry Oxygen Delivery Fraction of Inspired Oxygen 06/05/24 02:00 06/05/24 02:00 06/05/24 02:00 Temperature Pulse Rate 88 88 92 Respiratory Rate 28 H Blood Pressure 100/69 Pulse Oximetry Oxygen Delivery Fraction of Inspired Oxygen 06/05/24 02:00 06/05/24 02:10 06/05/24 02:10 Temperature 98.9 F Pulse Rate 88 84 84 Respiratory Rate 28 H 28 H Blood Pressure 101/72 Pulse Oximetry 98 97 Oxygen Delivery Mechanical Ventilation Fraction of Inspired Oxygen 40 06/05/24 02:13 06/05/24 02:18 06/05/24 03:57 Temperature Pulse Rate 88 87 Respiratory Rate 28 H 28 H Blood Pressure 100/69 Pulse Oximetry Oxygen Delivery Fraction of Inspired Oxygen 40 06/05/24 03:57 06/05/24 04:00 06/05/24 04:00 Temperature Pulse Rate 95 102 H 113 H Respiratory Rate 28 H Blood Pressure 101/74 101/74 Pulse Oximetry 98 Oxygen Delivery Mechanical Ventilation Fraction of Inspired Oxygen 40 06/05/24 04:00 06/05/24 04:00 06/05/24 04:00 Temperature Pulse Rate 101 H 102 H 111 H Respiratory Rate 28 H 28 H Blood Pressure 101/74 101/74 Pulse Oximetry Oxygen Delivery Fraction of Inspired Oxygen 06/05/24 04:00 06/05/24 04:00 06/05/24 04:00 Temperature 98.9 F Pulse Rate 115 H 105 H 113 H Respiratory Rate 28 H 28 H Blood Pressure 101/74 Pulse Oximetry 98 Oxygen Delivery Fraction of Inspired Oxygen 06/05/24 04:36 06/05/24 04:36 06/05/24 05:00 Temperature Pulse Rate 106 H 106 H 90 Respiratory Rate Blood Pressure 103/85 103/85 121/77 Pulse Oximetry Oxygen Delivery Fraction of Inspired Oxygen 06/05/24 05:01 06/05/24 05:31 06/05/24 05:31 Temperature Pulse Rate 103 H 93 93 Respiratory Rate Blood Pressure 94/64 L 94/64 L Pulse Oximetry 100 Oxygen Delivery Mechanical Ventilation Fraction of Inspired Oxygen 40 06/05/24 05:32 06/05/24 05:32 06/05/24 06:00 Temperature Pulse Rate 88 88 87 Respiratory Rate 28 H 28 H Blood Pressure 102/56 L Pulse Oximetry Oxygen Delivery Fraction of Inspired Oxygen 06/05/24 06:00 06/05/24 06:00 06/05/24 06:00 Temperature Pulse Rate 90 90 93 Respiratory Rate 28 H 28 H Blood Pressure 102/56 L 102/56 L Pulse Oximetry Oxygen Delivery Fraction of Inspired Oxygen 06/05/24 06:00 06/05/24 06:00 06/05/24 06:00 Temperature Pulse Rate 91 89 91 Respiratory Rate 28 H Blood Pressure 102/56 L Pulse Oximetry Oxygen Delivery Fraction of Inspired Oxygen 06/05/24 06:00 06/05/24 07:33 06/05/24 07:33 Temperature 99.6 F Pulse Rate 90 89 89 Respiratory Rate 28 H 28 H 28 H Blood Pressure 105/56 L 105/72 105/72 Pulse Oximetry 97 Oxygen Delivery Fraction of Inspired Oxygen 06/05/24 08:00 06/05/24 08:00 06/05/24 08:00 Temperature Pulse Rate 99 99 99 Respiratory Rate 28 H 28 H Blood Pressure 108/56 L Pulse Oximetry Oxygen Delivery Fraction of Inspired Oxygen 06/05/24 08:00 06/05/24 08:00 06/05/24 08:00 Temperature Pulse Rate 99 89 Respiratory Rate 28 H Blood Pressure 108/56 L Pulse Oximetry Oxygen Delivery Fraction of Inspired Oxygen 40 06/05/24 08:00 06/05/24 08:02 06/05/24 08:06 Temperature 99.9 F H Pulse Rate 93 99 99 Respiratory Rate 28 H Blood Pressure 108/56 L 108/56 L 108/56 L Pulse Oximetry 97 Oxygen Delivery Fraction of Inspired Oxygen 06/05/24 08:37 06/05/24 08:37 06/05/24 08:49 Temperature Pulse Rate 88 88 82 Respiratory Rate 28 H 28 H Blood Pressure Pulse Oximetry 97 Oxygen Delivery Mechanical Ventilation Fraction of Inspired Oxygen 40 06/05/24 09:00 06/05/24 09:01 06/05/24 09:02 Temperature Pulse Rate 89 89 89 Respiratory Rate 28 H 28 H Blood Pressure 120/74 Pulse Oximetry Oxygen Delivery Fraction of Inspired Oxygen 06/05/24 09:47 06/05/24 10:00 06/05/24 10:00 Temperature Pulse Rate 83 76 84 Respiratory Rate Blood Pressure 123/87 122/86 Pulse Oximetry Oxygen Delivery Fraction of Inspired Oxygen 06/05/24 10:00 06/05/24 10:00 06/05/24 10:00 Temperature 99.2 F Pulse Rate 83 83 83 Respiratory Rate 28 H 28 H 28 H Blood Pressure 122/86 Pulse Oximetry 96 Oxygen Delivery Fraction of Inspired Oxygen 06/05/24 10:00 06/05/24 10:00 06/05/24 10:00 Temperature Pulse Rate 83 83 83 Respiratory Rate 28 H Blood Pressure 122/86 122/86 122/86 Pulse Oximetry Oxygen Delivery Fraction of Inspired Oxygen 06/05/24 10:20 06/05/24 10:31 06/05/24 10:44 Temperature Pulse Rate 85 79 84 Respiratory Rate Blood Pressure 118/75 118/81 Pulse Oximetry 97 Oxygen Delivery Mechanical Ventilation Fraction of Inspired Oxygen 40 06/05/24 10:45 Temperature Pulse Rate 85 Respiratory Rate Blood Pressure 114/73 Pulse Oximetry Oxygen Delivery Fraction of Inspired Oxygen Intake/Output Intake/Output: Intake & Output 06/02/24 06/03/24 06/04/24 06/05/24 23:59 23:59 23:59 23:59 Intake Total 3632.5 5338.0 1343.4 Output Total 1375 500 Balance 3632.5 3963.0 843.4 Meds/Results Medications: Active Medications Generic Name Dose Route Start Last Admin Trade Name Freq PRN Reason Stop Dose Admin Acetaminophen 650 mg 06/03/24 13:56 Acetaminophen Elixir 325 Mg/10.15 Ml Udc FEED TUBE Q4H PRN Fever Albuterol/Ipratropium 3 ml 06/03/24 13:50 Ipratropium 0.5 Mg/Albuterol Sulfate 2.5 Mg Ampul.Neb 3 Ml INHALATION Q6HRT PRN Wheezng Albuterol/Ipratropium 3 ml 06/03/24 20:00 06/05/24 08:36 Ipratropium 0.5 Mg/Albuterol Sulfate 2.5 Mg Ampul.Neb 3 Ml INHALATION 3 ml Q6HRT ARABELLA Administration Dextrose 12.5 gm 06/03/24 13:46 Dextrose 50% 25 Gm/50 Ml Syringe IV PUSH PRN PRN Hypoglycemia Protocol Glucagon 1 mg 06/03/24 13:46 Glucagon For Inj 1 Mg Vial IM PRN PRN Hypoglycemia Protocol Glucose 15 gm 06/03/24 13:46 Glucose Oral Gel 15 Gm Of Glucse In 37.5 Gm Tube PO PRN PRN Hypoglycemia Protocol Heparin Sodium (Porcine) 6,000 units 06/03/24 12:33 06/04/24 23:06 Heparin Sodium 5,000 Units/Ml Vial IV PUSH 6,000 units PRN PRN Administration aPTT less than 55 seconds Heparin Sodium (Porcine) 3,000 units 06/03/24 12:33 06/05/24 05:57 Heparin Sodium 5,000 Units/Ml Vial IV PUSH 3,000 units PRN PRN Administration aPTT 55 - 70 seconds Hydrocortisone Sodium Succinate 100 mg 06/03/24 22:00 06/05/24 05:31 Hydrocortisone Sodium Succinate 100 Mg/2 Ml Vial IV PUSH 100 mg Q8HR ARABELLA Administration Heparin Sodium/Dextrose 25,000 units in 250 mls @ 25 mls/hr 06/03/24 12:35 06/05/24 08:00 Heparin Sodium/D5w 100 Units/Ml IV CONT 2,500 units/hr .Q10H ARABELLA 25 mls/hr Titration Protocol 2,500 UNITS/HR Dextrose 1,000 mls @ 100 mls/hr 06/03/24 13:46 Dextrose 5% 1,000 Ml IVPB PRN PRN Hypoglycemia Protocol Fentanyl Citrate 2,500 mcg in 250 mls @ 17.5 mls/hr 06/03/24 13:50 06/05/24 10:00 Fentanyl 2,500 Mcg/Ns 250 Ml IV CONT 175 mcg/hr .[id number] ARABELLA 17.5 mls/hr Titration Protocol 175 MCG/HR Midazolam HCl 100 mg in 100 mls @ 4 mls/hr 06/03/24 13:50 06/05/24 10:00 Versed 100 Mg/Ns 100 Ml IV CONT 4 mg/hr .Q25H ARABELLA 4 mls/hr Titration Protocol 4 MG/HR Doxycycline Hyclate 100 mg in 100 mls @ 100 mls/hr 06/03/24 16:00 06/05/24 04:28 Vibramycin 100 Mg/Ns 100 Ml IVPB Infused Q12H ARABELLA Infusion Vancomycin HCl 1,500 mg in 500 mls @ 250 mls/hr 06/04/24 15:00 06/04/24 17:18 Vancomycin 1,500 Mg/Ns 500 Ml IVPB Infused Q24H ARABELLA Infusion Cisatracurium Besylate 200 mg/ 100 mls @ 6.579 mls/hr 06/03/24 17:45 06/05/24 10:00 Dextrose IV CONT 3 mcg/kg/min .[id number] ARABELLA 6.58 mls/hr Titration Protocol 3 MCG/KG/MIN Norepinephrine Bitartrate 8 mg in 250 mls @ 7.5 mls/hr 06/03/24 17:50 06/05/24 10:45 Levophed 8 Mg/D5w 250 Ml IV CONT 4 mcg/min .Q24H ARABELLA 7.5 mls/hr Titration Protocol 4 MCG/MIN Vasopressin 100 units/ 100 mls @ 2.4 mls/hr 06/03/24 20:25 06/05/24 10:00 Dextrose IV CONT 0.04 units/min .[id number] ARABELLA 2.4 mls/hr Infusion Protocol 0.04 UNITS/MIN Amiodarone HCl/Dextrose 360 mg in 200 mls @ 16.667 mls/hr 06/04/24 01:55 06/05/24 10:00 Nexterone 360 Mg/D5w 200 Ml IV CONT 0.5 mg/min .Q12H ARABELLA 16.67 mls/hr Infusion Protocol 0.5 MG/MIN Cefepime HCl 2 gm in 50 mls @ 100 mls/hr 06/04/24 15:00 06/05/24 03:32 Maxipime 2 Gm/Ns 50 Ml IVPB Infused Q12H ARABELLA Infusion Potassium Chloride 100 mls @ 25 mls/hr 06/05/24 07:58 06/05/24 08:43 Kcl 40 Meq/Water 100 Ml IVPB 06/05/24 11:57 25 mls/hr ONCE ONE Administration Insulin Aspart 3 - 6 units 06/03/24 18:00 06/05/24 06:20 Insulin Aspart (*Bkc) 100 Units/Ml SUB-Q Not Given Q6HR ARABELLA Protocol Midazolam HCl 2 mg 06/03/24 13:48 06/03/24 16:40 Midazolam Hcl (*Crx) 2 Mg/2 Ml Vial IV PUSH 2 mg Q5M PRN Administration ventilator asynchrony Multi-Ingred Cream/Lotion/Oil/Oint 1 applic 06/03/24 14:00 06/05/24 07:48 Mineral Oil/White Petrolatum Ointment EACH EYE 1 applic Q12HR ARABELLA Administration Oseltamivir Phosphate 30 mg 06/04/24 09:00 06/05/24 07:49 Oseltamivir Phosphate Oral Susp 30 Mg/5 Ml Syringe FEED TUBE 06/09/24 08:59 30 mg Q12HR ARABELLA Administration Pantoprazole Sodium 40 mg 06/04/24 09:00 06/05/24 07:48 Pantoprazole Sodium Iv 40 Mg Vial IV PUSH 40 mg QAM ARABELLA Administration Perflutren Lipid Microsphere 0 ml 06/03/24 13:51 Perflutren Lipid Microspheres 1.5 Ml Vial Diluted To 10 Ml Total Volume IV PUSH 06/06/24 13:52 ONCE PRN adequate visualization Protocol Sodium Chloride 10 ml 06/03/24 22:00 06/05/24 05:31 Central Line Flush IV PUSH 10 ml Q8HR ARABELLA Administration Sodium Chloride 20 ml 06/03/24 19:36 Central Line Flush IV PUSH PRN PRN after blood draws Radiology Results: ITS Impressions Chest/Abdomen/Pelvis CT 06/03/24 17:44 IMPRESSION: Dense bilateral pulmonary infiltrates. Loculated dense effusion within the left upper lobe, similar to what one might see with an adjacent fracture. Although, significant respiratory artifact renders this evaluation limited. Perhaps once adequate resuscitation has been performed and lung findings are improving repeat imaging may be attempted with intravenous contrast, in order to evaluate for the presence or absence of acute traumatic injury. Hepatosplenomegaly. Free fluid within the deep pelvis, never a normal finding in a male patient. Chest X-Ray 06/05/24 06:22 Impression: Multilobar bilateral pneumonia, worsened from prior exam. Support tubes, as above. Abdomen Ultrasound 06/05/24 08:52 IMPRESSION: 1. Small volume of ascites. Labs Labs: Laboratory Results - last 24 hr 06/04/24 06/04/24 06/04/24 12:01 14:28 15:44 WBC RBC Hgb Hct MCV MCH MCHC RDW Plt Count MPV Immature Gran % (Auto) Neut % (Auto) Lymph % (Auto) [place] % (Auto) Eos % (Auto) Baso % (Auto) Lymph # (Auto) [place] # (Auto) Eos # (Auto) Baso # (Auto) Abs Immat Gran (auto) Absolute Neuts (auto) Absolute Nucleated RBC Total Counted Neutrophils % (Manual) Band Neutrophils % Lymphocytes % (Manual) Monocytes % (Manual) Nucleated RBC % Abs Neuts (Manual) Abs Lymphs (Manual) Abs Monocytes (Manual) Platelet Estimate Schistocytes APTT 59.7 H Puncture Site Left radial ABG pH 7.434 ABG pCO2 41.8 ABG pO2 118.4 H ABG PO2/FiO2 Ratio 2.37 ABG HCO3 27.4 H ABG O2 Saturation 98.4 ABG O2 Content 15.2 L ABG Base Excess 2.9 A-a Gradient 191.1 Oxyhemoglobin 98.1 Carboxyhemoglobin Methemoglobin Reduced Hemoglobin Total Hemoglobin 10.9 L O2 Delivery Device Ventilator O2 Liters/Min Not Reportable Minute Volume Not Reportable Vent Rate 28 Vent Mode Cmv FiO2 50 Tidal Volume 450 PEEP 12 Peak Inspir Pressure Not Reportable Pressure Support Not Reportable Sodium Potassium Chloride Carbon Dioxide Anion Gap BUN Creatinine Estim Creat Clear Calc Estimated GFR Glucose POC Capillary Glucose 180 H Calcium Phosphorus Magnesium Total Bilirubin AST ALT Alkaline Phosphatase Total Protein Albumin Hepatitis A IgM Ab Hep Bs Antigen Hep B Core IgM Ab Hepatitis C Ab Screen 06/04/24 06/04/24 06/05/24 17:26 21:45 00:27 WBC RBC Hgb Hct MCV MCH MCHC RDW Plt Count MPV Immature Gran % (Auto) Neut % (Auto) Lymph % (Auto) [place] % (Auto) Eos % (Auto) Baso % (Auto) Lymph # (Auto) [place] # (Auto) Eos # (Auto) Baso # (Auto) Abs Immat Gran (auto) Absolute Neuts (auto) Absolute Nucleated RBC Total Counted Neutrophils % (Manual) Band Neutrophils % Lymphocytes % (Manual) Monocytes % (Manual) Nucleated RBC % Abs Neuts (Manual) Abs Lymphs (Manual) Abs Monocytes (Manual) Platelet Estimate Schistocytes APTT 53.6 H Puncture Site ABG pH ABG pCO2 ABG pO2 ABG PO2/FiO2 Ratio ABG HCO3 ABG O2 Saturation ABG O2 Content ABG Base Excess A-a Gradient Oxyhemoglobin Carboxyhemoglobin Methemoglobin Reduced Hemoglobin Total Hemoglobin O2 Delivery Device O2 Liters/Min Minute Volume Vent Rate Vent Mode FiO2 Tidal Volume PEEP Peak Inspir Pressure Pressure Support Sodium Potassium Chloride Carbon Dioxide Anion Gap BUN Creatinine Estim Creat Clear Calc Estimated GFR Glucose POC Capillary Glucose 193 H 230 H Calcium Phosphorus Magnesium Total Bilirubin AST ALT Alkaline Phosphatase Total Protein Albumin Hepatitis A IgM Ab Hep Bs Antigen Hep B Core IgM Ab Hepatitis C Ab Screen 06/05/24 06/05/24 04:47 05:15 WBC 23.6 H RBC 3.19 L Hgb 9.8 L Hct 27.9 L MCV 87.5 MCH 30.7 MCHC 35.1 RDW 12.0 Plt Count 217 MPV 9.9 Immature Gran % (Auto) Not Reportable Neut % (Auto) Not Reportable Lymph % (Auto) Not Reportable [place] % (Auto) Not Reportable Eos % (Auto) Not Reportable Baso % (Auto) Not Reportable Lymph # (Auto) Not Reportable [place] # (Auto) Not Reportable Eos # (Auto) Not Reportable Baso # (Auto) Not Reportable Abs Immat Gran (auto) Not Reportable Absolute Neuts (auto) Not Reportable Absolute Nucleated RBC Not Reportable Total Counted 100 Neutrophils % (Manual) 83 H Band Neutrophils % 14 H Lymphocytes % (Manual) 1.0 L Monocytes % (Manual) 2 L Nucleated RBC % Not Reportable Abs Neuts (Manual) 22.89 H Abs Lymphs (Manual) 0.23 L Abs Monocytes (Manual) 0.47 Platelet Estimate Adequate Schistocytes None seen APTT 67.2 H Puncture Site Right radial ABG pH 7.380 ABG pCO2 48.6 H ABG pO2 97.6 ABG PO2/FiO2 Ratio 2.44 ABG HCO3 28.1 H ABG O2 Saturation 97.2 ABG O2 Content 15.6 L ABG Base Excess 2.4 A-a Gradient 131.7 Oxyhemoglobin 97.3 Carboxyhemoglobin 0.3 Methemoglobin 0.1 Reduced Hemoglobin 2.3 Total Hemoglobin 11.3 L O2 Delivery Device Ventilator O2 Liters/Min Not Reportable Minute Volume Not Reportable Vent Rate 28 Vent Mode Cmv FiO2 40 Tidal Volume 400 PEEP 12 Peak Inspir Pressure Not Reportable Pressure Support Not Reportable Sodium 122 L Potassium 3.3 L Chloride 81 L Carbon Dioxide 29 Anion Gap 12 BUN 55 H D Creatinine 1.69 H Estim Creat Clear Calc 46 Estimated GFR 44 L Glucose 172 H POC Capillary Glucose Calcium 7.9 L Phosphorus 3.8 Magnesium 2.3 Total Bilirubin 0.8 AST 374 H ALT 112 H Alkaline Phosphatase 56 Total Protein 6.0 L Albumin 2.8 L Hepatitis A IgM Ab Negative Hep Bs Antigen Negative Hep B Core IgM Ab Negative Hepatitis C Ab Screen Negative Quality VTE Prophylaxis VTE prophylaxis: pharmacologic ordered (currently on heparin drip)
[2024-06-05] MEDS: AMIODARONE 360 MG/D5W 200 ML 360 MG/200 ML BAG 16.67 MG IV CONT ×2 (12:04→22:52)
--- NOTE | 2024-06-05 12:05 | PCNFU ---
Nutrition Follow-Up Complete: Suboptimal Energy Intake as related to mechanical ventilation as evidenced by NPO. Goal: Meet estimated nutritional needs. Patient is progressing towards goal. We will continue current goal. Pt current nutrition is Vital AF 1.2 at 20 ml/hr. Last recorded weight is 75.1 kg, up from 74.6 kg on admit. Bowel Motility:No BM reported. Labs Reviewed: Glu 172, BUN 55, GFR 44, NA 122, Cr 1.69 Meds Noted: Versed, Fentanyl,Vasopressin, Protonix, Nimbex,Tamiflu. Skin:WNL Additional Notes: Patient remains on mechanical vent. Tube feedings to start today per [employer] of Vital AF 1.2 at 20 ml/hr at this time. Flush 30 ml q 4 hours. Goal rate recommending 70 ml/hr of Vital AF 1.2 providing 1848 kcal/116 gm protein/1249 ml water. Will monitor weight, labs, skin, diet orders, meds every Tuesday and Tuesday.
[2024-06-05 12:17] LABS: Glucose Point of Care 151 mg/dl (65-105)
[2024-06-05 12:26] LABS: Partial Thromboplastin Time 71.4 Seconds (22.3-36.8)
[2024-06-05] MEDS: NOREPINEPHRINE 8 MG/D5W 250 ML 8 MG/250 ML BAG 5.63 MG IV CONT (14:33)
[2024-06-05] MEDS: HEPARIN SOD/D5W 100 UNITS/ML 25,000 UNITS/250 ML BAG 25 UNITS IV CONT (14:34)
[2024-06-05 14:37] LABS: Triglycerides 68 mg/dL (<150)
[2024-06-05 14:59] LABS: Vancomycin Trough 8.5 ug/mL (10.0-20.0)
[2024-06-05 16:24] LABS: Osmolality, Urine 387 mOsm/kg (50-1200)
[2024-06-05] MEDS: MIDAZOLAM 100MG/NS 100ML(*CRX) 100 MG/100 ML BAG IV CONT (16:28)
[2024-06-05] MEDS: VANCOMYCIN 1,500 MG/NS 500 ML 1,500 MG/500 ML BAG 250 MG IVPB (16:34)
[2024-06-05 18:15] LABS: Glucose Point of Care 151 mg/dl (65-105)
[2024-06-05] MEDS: FENTANYL 2,500MCG/NS250ML(*CRX 2,500 MCG/250 ML BAG 17.5 MCG IV CONT (18:54)
[2024-06-05 19:29] LABS: Partial Thromboplastin Time 74.9 Seconds (22.3-36.8)
[2024-06-06] VITALS (45 sets, daily range): BP systolic 93–147; BP diastolic 50–74; PULSE 74–115; RESP 26–32; TEMP 36.5–37.9; O2SAT 93–99
[2024-06-06 00:18] LABS: Glucose Point of Care 152 mg/dl (65-105)
[2024-06-06] MEDS: HEPARIN SOD/D5W 100 UNITS/ML 25,000 UNITS/250 ML BAG 25 UNITS IV CONT (00:36)
[2024-06-06] MEDS: IPRATROPIUM 0.5 MG/ALBUTEROL SULFATE 2.5 MG AMPUL.NEB 3 ML INHALATION ×4 (01:29→19:38)
[2024-06-06] MEDS: VANCOMYCIN 1,500 MG/NS 500 ML 1,500 MG/500 ML BAG 250 MG IVPB (03:02)
[2024-06-06] MEDS: DOXYCYCLINE 100 MG/NS 100 ML 100 MG/100 ML BAG IVPB ×2 (03:02→16:27)
[2024-06-06] MEDS: CEFEPIME 2 GM/NS 50 ML 2 GM/50 ML BAG IVPB ×2 (03:02→14:45)
[2024-06-06 03:38] LABS: Protein, Total 4.9 g/dL (6.1-8.1)
[2024-06-06 04:53] LABS: Alveolar/Arterial O2 Gradient 109.7 mmHg; Base Excess ABG 0.3 mEq/l (+/-2.0); Carboxyhemoglobin 0.3 % THb (0-2.0); Fractional Inspired Oxygen 40 %; HCO3 ABG 28.2 mEq/l (22.0-26.0); Methemoglobin ABG 0.1 %THb (0-1.5); Oxygen Content ABG 14.6 %vol (16.0-22.0); Oxygen Saturation ABG 96.6 % (95.0-100.0); PO2 ABG 101.8 mmHg (80.0-100.0); PO2 FiO2 Ratio Arterial Blood 2.55 %; Reduced Hemoglobin 2.6 %THb (0-5.0); Total Hemoglobin 10.6 g/dL (12.0-18.0)
[2024-06-06 04:56] LABS: PCO2 ABG 64.1 mmHg (35.0-45.0)
[2024-06-06 04:57] LABS: Arterial Blood Gas PEEP 12 cmH2O; Arterial Blood Gas Tidal Volume 400 ml; Arterial Blood Gas Vent Mode CMV; Arterial Blood Gas Ventilator rate 28 /MIN; Device VENTILATOR; Modified Allen's Test Pass; Site Drawn LEFT RADIAL; pH ABG 7.262 (7.350-7.450)
[2024-06-06 05:05] LABS: Hemoglobin 8.6 g/dL (14.0-18.0); Mean Corpuscular HGB Conc 34.4 g/dl (32-36); Mean Corpuscular Hemoglobin 30.9 pg (26-34); Mean Corpuscular Volume 89.9 fl (80-100); Mean Platelet Volume 9.4 fl (7.4-10.4); Platelet Count Result 196 k/mm3 (150-375); Red Blood Count 2.78 M/mm3 (4.6-6.20); Red Cell Distribution Width 13.2 % (11.5-14.5)
[2024-06-06 05:19] LABS: Partial Thromboplastin Time 62.5 Seconds (22.3-36.8)
[2024-06-06 05:27] LABS: Lymphocytes Absolute Manual 0.57 K/mm3 (1.1-4.5); Lymphocytes Percent Manual 3 % (18-44); Monocytes Absolute Manual 0.38 K/mm3 (0.1-0.90); Monocytes Percent Manual 2 % (3-9); Total Cells Counted 100
[2024-06-06 05:28] LABS: Band Neutrophils Percent 7 % (0-6)
[2024-06-06 05:29] LABS: Alanine Aminotransferase 81 U/L (6-50); Albumin Level 2.4 g/dL (3.5-5.1); Alkaline Phosphatase 56 U/L (38-126); Anion Gap 9 mmol/L (4-12); Aspartate Amino Transferase 257 U/L (17-59); Bilirubin,Total 0.5 mg/dL (0.2-1.3); Blood Urea Nitrogen 74 mg/dL (9-20); Calcium 7.9 mg/dL (8.4-10.2); Carbon Dioxide 29 mmol/L (22-30); Chloride 85 mmol/L (98-107); Estimated CRCL calculation 44 ml/min; Estimated Glomerular Filt Rate 42; Glucose 166 mg/dL (65-110); Magnesium 2.7 mg/dL (1.6-2.3); Neutrophils Absolute Manual 18.05 K/mm3 (1.3-6.7); Neutrophils Percent Manual 88 % (46-73); Ovalocytes 1+; Phosphorus 4.3 mg/dL (2.5-4.5); Platelet Estimate Adequate (Adequate); Poikilocytosis 1+; Potassium 3.7 mmol/L (3.4-5.0); Schistocytes None Seen; Sodium 123 mmol/L (137-145)
[2024-06-06] MEDS: HYDROCORTISONE SODIUM SUCCINATE 100 MG/2 ML VIAL IV PUSH ×3 (05:29→20:32)
[2024-06-06] MEDS: CENTRAL LINE FLUSH 10 ML IV PUSH ×3 (05:29→23:06)
[2024-06-06] MEDS: HEPARIN SODIUM 5,000 UNITS/ML VIAL 3000 UNITS IV PUSH (05:43)
[2024-06-06 06:53] LABS: Creatinine, Random Urine 96 mg/dL (20-320); Total Protein/Creatinine Ratio 1260 mg/g creat (25-148)
[2024-06-06] MEDS: PANTOPRAZOLE SODIUM IV 40 MG VIAL IV PUSH (09:00)
[2024-06-06] MEDS: OSELTAMIVIR PHOSPHATE ORAL SUSP 30 MG/5 ML SYRINGE FEED TUBE ×2 (09:01→20:32)
[2024-06-06] MEDS: MINERAL OIL/WHITE PETROLATUM OINTMENT 1 APPLIC EACH EYE ×2 (09:01→20:32)
--- NOTE | 2024-06-06 09:30 | P.PNINT_ITS ---
Progress Note: A&P Assessment and Plan (1) Acute respiratory failure: Code(s): J96.00 - Acute respiratory failure, unspecified whether with hypoxia or hypercapnia Status: Acute Assessment and Plan: Acute respiratory failure secondary to pneumonia -06/03: intubated in the ER -patient remains on CMV mode of ventilation, peep of 12 and 50% FiO2 this morning -06/03: Patient was proned for approximately 20 hours - chest x-ray this morning: Multifocal bilateral pneumonia, unchanged. -influenza A positive -negative for COVID, RSV -urine Legionella and pneumococcal antigen obtained and pending, -mycoplasma pneumonia pending -continue bronchodilators -sedated with fentanyl, Versed. Also paralyzed with Nimbex for ventilator synchrony. Have asked the bedside RN to start weaning Nimbex to off 06/03/2024: CT chest, abdomen, pelvis IMPRESSION: Dense bilateral pulmonary infiltrates. Loculated dense effusion within the left upper lobe, similar to what one might see with an adjacent fracture. Although, significant respiratory artifact renders this evaluation limited. Perhaps once adequate resuscitation has been performed and lung findings are improving repeat imaging may be attempted with intravenous contrast, in order to evaluate for the presence or absence of acute traumatic injury. Hepatosplenomegaly. Free fluid within the deep pelvis, never a normal finding in a male patient. (2) Septic shock: Code(s): A41.9 - Sepsis, unspecified organism; R65.21 - Severe sepsis with septic shock Status: Acute Assessment and Plan: Patient with hypotension, refractory to IV fluids, -etiology likely related to pneumonia, UA was unremarkable -patient received adequate amount of IV fluids -06/03: blood cultures growing -Streptococcus pneumonia 2/2 bottles -lactic acid has normalized -continue vancomycin cefepime and doxycycline (06/03) -currently OFF Levophed and vasopressin -Continue to maintain MAP > 65 mm Hg or SBP > 100 mm Hg -continue stress dose steroids (06/03) -06/06: Repeat blood cultures (3) Pneumonia: Code(s): J18.9 - Pneumonia, unspecified organism Status: Acute Assessment and Plan: See above (4) Hyponatremia: Code(s): E87.1 - Hypo-osmolality and hyponatremia Status: Acute Assessment and Plan: Hyponatremia with sodium levels of 117 on admission Etiology is not clear at this point in this could be secondary to excessive water intake. This could also be secondary to SIADH, congestive heart failure, SSRI, increased water intake -patient received adequate IV fluids -could will discontinue maintenance IV fluids, discussed with Nephrology -nephrology following the patient and appreciate the evaluation and recommendations -continue to monitor sodium levels (5) SABA (acute kidney injury): Code(s): N17.9 - Acute kidney failure, unspecified Status: Acute Assessment and Plan: Baseline creatinine unknown Presented with creatinine of 1.5 for which could be secondary to sepsis and hypovolemia Status post IV fluids Appreciate nephrology following the patient 06/03: CTA chest abdomen pelvis did not show any hydronephrosis renal calculi Jimenez in place, urine output has been low Urine lytes reflective of prerenal picture, patient has had adequate IV fluids, now in ARDS, -continue to monitor urine output, electrolytes and renal function (6) Atrial fibrillation with RVR: Code(s): I48.91 - Unspecified atrial fibrillation Status: Acute Assessment and Plan: Status post DC cardioversion in ER. Currently on heparin infusion. -appreciate cardiology evaluation and recommendations -patient received amiodarone bolus x2, now on amiodarone at 0.5 mg/min -off pressors -will switch amiodarone infusion to p.o. amiodarone per Cardiology recommendations 06/05/2024: Echocardiogram Summary 1. Left ventricular chamber dimension is normal. 2. Left ventricular systolic function is moderately reduced, estimated at 30-35%. 3. There is mildly increased left ventricular wall thickness. 4. The left ventricular diastolic function is grade I diastolic dysfunction. 5. Right ventricular systolic function is normal. 6. There is mild mitral valve regurgitation. 7. There is mild tricuspid valve regurgitation. 8. Estimated pulmonary arterial systolic pressure is 34 mmHg. (7) Elevated brain natriuretic peptide (BNP) level: Code(s): R79.89 - Other specified abnormal findings of blood chemistry Status: Acute Assessment and Plan: Patient has elevated BNP of 4190, although no evidence of volume overload from exam CT chest showed multifocal pneumonia Echocardiogram was above Cautious IV fluid (8) Hypertension: Code(s): I10 - Essential (primary) hypertension Status: Acute Assessment and Plan: Hold all antihypertensives as patient chest came of pressors (9) Influenza A: Code(s): J10.1 - Influenza due to other identified influenza virus with other respiratory manifestations Status: Acute Assessment and Plan: Patient was tested positive for influenza A, on Tamiflu (10) Schizophrenia: Code(s): F20.9 - Schizophrenia, unspecified Status: Acute Assessment and Plan: History of schizophrenia and other behavior issues Unknown if he takes any medications Plan DVT prophylaxis -heparin infusion for AFib RVR Stress ulcer prophylaxis -Protonix Nutrition: Trickle tube feeds, high tube feed residuals Code Status -DNR Total Critical Care Time - 34 minutes Discussed with patient's father and brother updated with his condition and plan of care. I answered all questions Due to a high probability of clinically significant, life threatening deterioration, the patient required my highest level of preparedness to intervene emergently and I personally spent this critical care time directly and personally managing the patient. This critical care time included obtaining a history; examining the patient; pulse oximetry; ordering and review of studies; arranging urgent treatment with development of a management plan; evaluation of patient's response to treatment; frequent reassessment; and discussions with oth er providers. It was exclusive of separately billable procedures and treating other patients and teaching time. Please see Assessment and Plan section and the rest of the note for further information on patient assessment and treatment This dictation may have been done utilizing a voice recognition system. Attempts have been made to correct errors. However, there may be uncorrected grammatical, spelling, and recognitions errors present. Subjective Date/time seen: 06/06/24 09:30 Interval history: Reason for consult: Acute respiratory failure, pneumonia, bacteremia, acute kidney injury, hyponatremia, AFib RVR status post DC cardioversion 06/06/2024: Patient seen examined the ICU, remains intubated on CMV mode ventilation, peep of 12, 40% FiO2. Sedated with fentanyl and Versed infusion. Remains on Nimbex infusion for ventilator synchrony. Patient off Levophed and vasopressin. Urine output has been adequate, patient is not tolerating tube feeds. LFTs in WBC count trending down Review of Systems Review of Systems: ROS unobtainable: Yes unobtainable due to medical condition and unobtainable due to mental status Exam Narrative: General: Intubated, sedated, paralyzed, in supine position HEENT: Pupils equal and reactive, sclera is clear Lungs/Chest: Coarse breath sounds bilaterally right worse than left, bilateral rales, decreased breath sounds at bases, otherwise adequate air entry Cardiac: Is regularly irregular, tachycardic Circulation: Pedal pulses are intact and symmetrical. Abdomen: Soft, nontender, nondistended, hypoactive bowel sounds Extremities: Full 1+ edema bilateral lower extremities : Jimenez in place Neurologic: Intubated, sedated, paralyzed with Nimbex. Skin: No Rash Objective Data Vital Signs Vital Signs: Vital Signs - 24 hr 06/05/24 09:47 06/05/24 10:00 06/05/24 10:00 Temperature Pulse Rate 83 76 84 Respiratory Rate Blood Pressure 123/87 122/86 Pulse Oximetry Oxygen Delivery Fraction of Inspired Oxygen 06/05/24 10:00 06/05/24 10:00 06/05/24 10:00 Temperature 99.2 F Pulse Rate 83 83 83 Respiratory Rate 28 H 28 H 28 H Blood Pressure 122/86 Pulse Oximetry 96 Oxygen Delivery Fraction of Inspired Oxygen 06/05/24 10:00 06/05/24 10:00 06/05/24 10:00 Temperature Pulse Rate 83 83 83 Respiratory Rate 28 H Blood Pressure 122/86 122/86 122/86 Pulse Oximetry Oxygen Delivery Fraction of Inspired Oxygen 06/05/24 10:20 06/05/24 10:31 06/05/24 10:44 Temperature Pulse Rate 85 79 84 Respiratory Rate Blood Pressure 118/75 118/81 Pulse Oximetry 97 Oxygen Delivery Mechanical Ventilation Fraction of Inspired Oxygen 40 06/05/24 10:45 06/05/24 11:56 06/05/24 11:56 Temperature Pulse Rate 85 88 88 Respiratory Rate 28 H 28 H Blood Pressure 114/73 Pulse Oximetry Oxygen Delivery Fraction of Inspired Oxygen 06/05/24 11:57 06/05/24 11:57 06/05/24 11:58 Temperature Pulse Rate 88 88 88 Respiratory Rate 28 H Blood Pressure 103/72 103/72 103/72 Pulse Oximetry Oxygen Delivery Fraction of Inspired Oxygen 06/05/24 11:59 06/05/24 12:00 06/05/24 12:00 Temperature Pulse Rate 88 86 Respiratory Rate Blood Pressure 103/72 Pulse Oximetry Oxygen Delivery Fraction of Inspired Oxygen 40 06/05/24 12:00 06/05/24 12:02 06/05/24 12:04 Temperature 99.8 F H Pulse Rate 87 89 85 Respiratory Rate 28 H Blood Pressure 100/71 100/71 100/71 Pulse Oximetry 97 Oxygen Delivery Fraction of Inspired Oxygen 06/05/24 12:04 06/05/24 13:59 06/05/24 14:00 Temperature Pulse Rate 85 89 89 Respiratory Rate 28 H Blood Pressure 100/71 110/74 Pulse Oximetry Oxygen Delivery Fraction of Inspired Oxygen 06/05/24 14:00 06/05/24 14:00 06/05/24 14:00 Temperature Pulse Rate 89 89 89 Respiratory Rate 28 H 28 H Blood Pressure 105/74 105/74 Pulse Oximetry Oxygen Delivery Fraction of Inspired Oxygen 06/05/24 14:00 06/05/24 14:00 06/05/24 14:00 Temperature 100.3 F H Pulse Rate 89 89 90 Respiratory Rate 28 H Blood Pressure 105/74 109/72 Pulse Oximetry 97 Oxygen Delivery Fraction of Inspired Oxygen 06/05/24 14:30 06/05/24 14:30 06/05/24 14:33 Temperature Pulse Rate 91 91 90 Respiratory Rate 28 H Blood Pressure 104/74 Pulse Oximetry 96 Oxygen Delivery Mechanical Ventilation Fraction of Inspired Oxygen 40 06/05/24 14:33 06/05/24 14:46 06/05/24 16:00 Temperature Pulse Rate 90 88 89 Respiratory Rate 28 H 28 H Blood Pressure 104/74 Pulse Oximetry Oxygen Delivery Fraction of Inspired Oxygen 06/05/24 16:00 06/05/24 16:00 06/05/24 16:00 Temperature Pulse Rate 89 86 Respiratory Rate 28 H Blood Pressure 106/68 106/68 Pulse Oximetry Oxygen Delivery Fraction of Inspired Oxygen 40 06/05/24 16:00 06/05/24 16:00 06/05/24 16:00 Temperature 99.9 F H Pulse Rate 84 84 88 Respiratory Rate 28 H 28 H Blood Pressure 107/67 Pulse Oximetry 97 Oxygen Delivery Fraction of Inspired Oxygen 06/05/24 16:00 06/05/24 16:28 06/05/24 16:28 Temperature Pulse Rate 79 89 89 Respiratory Rate 28 H 28 H Blood Pressure 107/67 Pulse Oximetry Oxygen Delivery Fraction of Inspired Oxygen 06/05/24 16:29 06/05/24 16:30 06/05/24 17:18 Temperature Pulse Rate 89 89 84 Respiratory Rate Blood Pressure 106/68 106/68 Pulse Oximetry 96 Oxygen Delivery Mechanical Ventilation Fraction of Inspired Oxygen 40 06/05/24 18:00 06/05/24 18:00 06/05/24 18:00 Temperature Pulse Rate 82 82 82 Respiratory Rate 28 H 28 H Blood Pressure 102/60 Pulse Oximetry Oxygen Delivery Fraction of Inspired Oxygen 06/05/24 18:00 06/05/24 18:00 06/05/24 18:00 Temperature Pulse Rate 82 82 82 Respiratory Rate 26 H Blood Pressure 102/60 102/60 102/60 Pulse Oximetry Oxygen Delivery Fraction of Inspired Oxygen 06/05/24 18:00 06/05/24 18:00 06/05/24 18:54 Temperature 99.5 F Pulse Rate 85 82 84 Respiratory Rate 28 H 28 H Blood Pressure 102/60 Pulse Oximetry 97 Oxygen Delivery Fraction of Inspired Oxygen 06/05/24 18:54 06/05/24 19:48 06/05/24 20:00 Temperature Pulse Rate 84 79 92 Respiratory Rate 28 H 28 H 28 H Blood Pressure Pulse Oximetry Oxygen Delivery Fraction of Inspired Oxygen 06/05/24 20:00 06/05/24 20:00 06/05/24 20:00 Temperature Pulse Rate 89 90 90 Respiratory Rate 28 H Blood Pressure 119/59 L 119/59 L Pulse Oximetry Oxygen Delivery Fraction of Inspired Oxygen 06/05/24 20:00 06/05/24 20:00 06/05/24 20:00 Temperature Pulse Rate 89 89 Respiratory Rate 28 H Blood Pressure 119/59 L 119/59 L Pulse Oximetry Oxygen Delivery Fraction of Inspired Oxygen 40 06/05/24 20:00 06/05/24 20:00 06/05/24 20:00 Temperature 99.4 F Pulse Rate 893 H 96 84 Respiratory Rate 28 H 28 H Blood Pressure 119/59 L Pulse Oximetry 96 96 Oxygen Delivery Mechanical Ventilation Fraction of Inspired Oxygen 40 06/05/24 20:23 06/05/24 20:26 06/05/24 20:45 Temperature Pulse Rate 77 96 90 Respiratory Rate 28 H Blood Pressure 112/57 L Pulse Oximetry 96 Oxygen Delivery Mechanical Ventilation Fraction of Inspired Oxygen 40 06/05/24 21:45 06/05/24 22:00 06/05/24 22:00 Temperature 98.8 F Pulse Rate 87 88 87 Respiratory Rate 26 H Blood Pressure 101/62 100/62 Pulse Oximetry 96 Oxygen Delivery Fraction of Inspired Oxygen 06/05/24 22:00 06/05/24 22:00 06/05/24 22:00 Temperature Pulse Rate 86 86 87 Respiratory Rate 28 H 28 H Blood Pressure 100/62 Pulse Oximetry Oxygen Delivery Fraction of Inspired Oxygen 06/05/24 22:00 06/05/24 22:00 06/05/24 22:00 Temperature Pulse Rate 87 88 87 Respiratory Rate 28 H Blood Pressure 100/62 100/62 100/62 Pulse Oximetry Oxygen Delivery Fraction of Inspired Oxygen 06/05/24 22:00 06/05/24 22:52 06/05/24 22:52 Temperature Pulse Rate 87 87 87 Respiratory Rate 28 H Blood Pressure 100/62 102/64 102/64 Pulse Oximetry Oxygen Delivery Fraction of Inspired Oxygen 06/05/24 23:02 06/05/24 23:02 06/05/24 23:18 Temperature Pulse Rate 90 Respiratory Rate 28 H Blood Pressure Pulse Oximetry 96 Oxygen Delivery Mechanical Ventilation Mechanical Ventilation Fraction of Inspired Oxygen 40 40 40 06/06/24 00:00 06/06/24 00:00 06/06/24 00:01 Temperature 98.7 F Pulse Rate 82 83 82 Respiratory Rate 28 H 28 H Blood Pressure 102/69 Pulse Oximetry 96 Oxygen Delivery Fraction of Inspired Oxygen 06/06/24 00:01 06/06/24 00:01 06/06/24 00:01 Temperature Pulse Rate 82 82 82 Respiratory Rate 28 H Blood Pressure 102/69 102/69 Pulse Oximetry Oxygen Delivery Fraction of Inspired Oxygen 06/06/24 00:01 06/06/24 00:01 06/06/24 01:29 Temperature Pulse Rate 82 82 82 Respiratory Rate 28 H Blood Pressure 102/69 102/69 Pulse Oximetry 97 Oxygen Delivery Mechanical Ventilation Fraction of Inspired Oxygen 40 06/06/24 01:29 06/06/24 01:43 06/06/24 02:00 Temperature Pulse Rate 82 80 103 H Respiratory Rate 28 H 28 H Blood Pressure Pulse Oximetry Oxygen Delivery Fraction of Inspired Oxygen 06/06/24 02:00 06/06/24 02:00 06/06/24 02:00 Temperature 98.7 F Pulse Rate 98 102 H 102 H Respiratory Rate 28 H 28 H 28 H Blood Pressure 108/60 Pulse Oximetry 96 Oxygen Delivery Fraction of Inspired Oxygen 06/06/24 02:00 06/06/24 02:00 06/06/24 02:00 Temperature Pulse Rate 102 H 102 H 102 H Respiratory Rate 28 H Blood Pressure 108/60 108/60 108/60 Pulse Oximetry Oxygen Delivery Fraction of Inspired Oxygen 06/06/24 02:00 06/06/24 02:15 06/06/24 03:22 Temperature Pulse Rate 82 92 Respiratory Rate Blood Pressure 108/60 110/69 Pulse Oximetry Oxygen Delivery Fraction of Inspired Oxygen 40 06/06/24 03:23 06/06/24 04:00 06/06/24 04:00 Temperature 98.7 F Pulse Rate 85 82 83 Respiratory Rate 28 H 28 H 28 H Blood Pressure 100/65 Pulse Oximetry 96 96 Oxygen Delivery Mechanical Ventilation Fraction of Inspired Oxygen 40 06/06/24 04:00 06/06/24 04:00 06/06/24 04:00 Temperature Pulse Rate 82 82 82 Respiratory Rate 28 H Blood Pressure 100/65 100/65 Pulse Oximetry Oxygen Delivery Fraction of Inspired Oxygen 06/06/24 04:00 06/06/24 04:00 06/06/24 04:50 Temperature Pulse Rate 83 83 80 Respiratory Rate 28 H Blood Pressure 100/65 100/65 Pulse Oximetry 97 Oxygen Delivery Mechanical Ventilation Fraction of Inspired Oxygen 40 06/06/24 05:30 06/06/24 06:00 06/06/24 06:00 Temperature Pulse Rate 94 81 82 Respiratory Rate 28 H 28 H Blood Pressure 107/62 Pulse Oximetry Oxygen Delivery Fraction of Inspired Oxygen 06/06/24 06:00 06/06/24 06:00 06/06/24 06:00 Temperature Pulse Rate 84 84 84 Respiratory Rate 28 H Blood Pressure 104/57 L 104/57 L 104/57 L Pulse Oximetry Oxygen Delivery Fraction of Inspired Oxygen 06/06/24 06:00 06/06/24 06:00 06/06/24 06:00 Temperature 98.0 F Pulse Rate 84 84 83 Respiratory Rate 28 H Blood Pressure 104/57 L 104/57 L Pulse Oximetry 96 Oxygen Delivery Fraction of Inspired Oxygen 06/06/24 06:14 06/06/24 07:55 06/06/24 07:55 Temperature Pulse Rate 86 77 77 Respiratory Rate 28 H Blood Pressure Pulse Oximetry 96 97 Oxygen Delivery Mechanical Ventilation Mechanical Ventilation Fraction of Inspired Oxygen 40 40 06/06/24 08:00 06/06/24 08:00 06/06/24 08:00 Temperature Pulse Rate 78 78 78 Respiratory Rate 28 H 28 H Blood Pressure 100/55 L Pulse Oximetry Oxygen Delivery Fraction of Inspired Oxygen 06/06/24 08:00 06/06/24 08:00 06/06/24 08:00 Temperature Pulse Rate 78 78 78 Respiratory Rate 28 H Blood Pressure 100/55 L 100/55 L 100/55 L Pulse Oximetry Oxygen Delivery Fraction of Inspired Oxygen 06/06/24 08:10 06/06/24 09:04 Temperature Pulse Rate 76 89 Respiratory Rate 28 H 28 H Blood Pressure 116/68 Pulse Oximetry Oxygen Delivery Fraction of Inspired Oxygen Intake/Output Intake/Output: Intake & Output 06/03/24 06/04/24 06/05/24 06/06/24 23:59 23:59 23:59 23:59 Intake Total 3632.5 5338.0 3171.1 1728.9 Output Total 1375 1075 675 Balance 3632.5 3963.0 2096.1 1053.9 Meds/Results Medications: Active Medications Generic Name Dose Route Start Last Admin Trade Name Freq PRN Reason Stop Dose Admin Acetaminophen 650 mg 06/03/24 13:56 Acetaminophen Elixir 325 Mg/10.15 Ml Udc FEED TUBE Q4H PRN Fever Albuterol/Ipratropium 3 ml 06/03/24 13:50 Ipratropium 0.5 Mg/Albuterol Sulfate 2.5 Mg Ampul.Neb 3 Ml INHALATION Q6HRT PRN Wheezng Albuterol/Ipratropium 3 ml 06/03/24 20:00 06/06/24 08:10 Ipratropium 0.5 Mg/Albuterol Sulfate 2.5 Mg Ampul.Neb 3 Ml INHALATION 3 ml Q6HRT ARABELLA Administration Dextrose 12.5 gm 06/03/24 13:46 Dextrose 50% 25 Gm/50 Ml Syringe IV PUSH PRN PRN Hypoglycemia Protocol Glucagon 1 mg 06/03/24 13:46 Glucagon For Inj 1 Mg Vial IM PRN PRN Hypoglycemia Protocol Glucose 15 gm 06/03/24 13:46 Glucose Oral Gel 15 Gm Of Glucse In 37.5 Gm Tube PO PRN PRN Hypoglycemia Protocol Heparin Sodium (Porcine) 6,000 units 06/03/24 12:33 06/04/24 23:06 Heparin Sodium 5,000 Units/Ml Vial IV PUSH 6,000 units PRN PRN Administration aPTT less than 55 seconds Heparin Sodium (Porcine) 3,000 units 06/03/24 12:33 06/06/24 05:43 Heparin Sodium 5,000 Units/Ml Vial IV PUSH 3,000 units PRN PRN Administration aPTT 55 - 70 seconds Hydrocortisone Sodium Succinate 100 mg 06/03/24 22:00 06/06/24 05:29 Hydrocortisone Sodium Succinate 100 Mg/2 Ml Vial IV PUSH 100 mg Q8HR ARABELLA Administration Heparin Sodium/Dextrose 25,000 units in 250 mls @ 26 mls/hr 06/03/24 12:35 06/06/24 08:00 Heparin Sodium/D5w 100 Units/Ml IV CONT 2,600 units/hr .[id number] ARABELLA 26 mls/hr Titration Protocol 2,600 UNITS/HR Dextrose 1,000 mls @ 100 mls/hr 06/03/24 13:46 Dextrose 5% 1,000 Ml IVPB PRN PRN Hypoglycemia Protocol Fentanyl Citrate 2,500 mcg in 250 mls @ 17.5 mls/hr 06/03/24 13:50 06/06/24 08:00 Fentanyl 2,500 Mcg/Ns 250 Ml IV CONT 175 mcg/hr .[id number] ARABELLA 17.5 mls/hr Titration Protocol 175 MCG/HR Midazolam HCl 100 mg in 100 mls @ 4 mls/hr 06/03/24 13:50 06/06/24 08:00 Versed 100 Mg/Ns 100 Ml IV CONT 4 mg/hr .Q25H ARABELLA 4 mls/hr Titration Protocol 4 MG/HR Doxycycline Hyclate 100 mg in 100 mls @ 100 mls/hr 06/03/24 16:00 06/06/24 04:02 Vibramycin 100 Mg/Ns 100 Ml IVPB Infused Q12H ARABELLA Infusion Cisatracurium Besylate 200 mg/ 100 mls @ 5.483 mls/hr 06/03/24 17:45 06/06/24 09:04 Dextrose IV CONT 2.5 mcg/kg/min .[id number] ARABELLA 5.48 mls/hr Titration Protocol 2.5 MCG/KG/MIN Norepinephrine Bitartrate 8 mg in 250 mls @ 0 mls/hr 06/03/24 17:50 06/06/24 08:00 Levophed 8 Mg/D5w 250 Ml IV CONT 0 mcg/min .Q0M ARABELLA 0 mls/hr Titration Protocol 0 MCG/MIN Vasopressin 100 units/ 100 mls @ 0 mls/hr 06/03/24 20:25 06/06/24 08:00 Dextrose IV CONT 0 units/min .Q0M ARABELLA 0 mls/hr Infusion Protocol 0 UNITS/MIN Amiodarone HCl/Dextrose 360 mg in 200 mls @ 16.667 mls/hr 06/04/24 01:55 06/06/24 08:00 Nexterone 360 Mg/D5w 200 Ml IV CONT 0.5 mg/min .Q12H ARABELLA 16.67 mls/hr Infusion Protocol 0.5 MG/MIN Cefepime HCl 2 gm in 50 mls @ 100 mls/hr 06/04/24 15:00 06/06/24 03:32 Maxipime 2 Gm/Ns 50 Ml IVPB Infused Q12H ARABELLA Infusion Vancomycin HCl 1,500 mg in 500 mls @ 250 mls/hr 06/05/24 16:00 06/06/24 05:02 Vancomycin 1,500 Mg/Ns 500 Ml IVPB Infused Q12H ARABELLA Infusion Insulin Aspart 3 - 6 units 06/03/24 18:00 06/06/24 06:21 Insulin Aspart (*Bkc) 100 Units/Ml SUB-Q Not Given Q6HR ARABELLA Protocol Midazolam HCl 2 mg 06/03/24 13:48 06/03/24 16:40 Midazolam Hcl (*Crx) 2 Mg/2 Ml Vial IV PUSH 2 mg Q5M PRN Administration ventilator asynchrony Miscellaneous Information 1 each 06/06/24 00:01 Nimbex Needs To Be Renewed Or It Will Automatically Discontinue. XX 07/06/24 00:00 CLARIFY ARABELLA Miscellaneous Information 1 each 06/05/24 22:55 Mix Ivs In Ns If Possible XX 06/05/24 22:56 ONCE ONE Multi-Ingred Cream/Lotion/Oil/Oint 1 applic 06/03/24 14:00 06/06/24 09:01 Mineral Oil/White Petrolatum Ointment EACH EYE 1 applic Q12HR ARABELLA Administration Oseltamivir Phosphate 30 mg 06/04/24 09:00 06/06/24 09:01 Oseltamivir Phosphate Oral Susp 30 Mg/5 Ml Syringe FEED TUBE 06/09/24 08:59 30 mg Q12HR ARABELLA Administration Pantoprazole Sodium 40 mg 06/04/24 09:00 06/06/24 09:00 Pantoprazole Sodium Iv 40 Mg Vial IV PUSH 40 mg QAM ARABELLA Administration Perflutren Lipid Microsphere 0 ml 06/03/24 13:51 Perflutren Lipid Microspheres 1.5 Ml Vial Diluted To 10 Ml Total Volume IV PUSH 06/06/24 13:52 ONCE PRN adequate visualization Protocol Sodium Chloride 10 ml 06/03/24 22:00 06/06/24 05:29 Central Line Flush IV PUSH 10 ml Q8HR ARABELLA Administration Sodium Chloride 20 ml 06/03/24 19:36 Central Line Flush IV PUSH PRN PRN after blood draws Radiology Results: ITS Impressions Chest/Abdomen/Pelvis CT 06/03/24 17:44 IMPRESSION: Dense bilateral pulmonary infiltrates. Loculated dense effusion within the left upper lobe, similar to what one might see with an adjacent fracture. Although, significant respiratory artifact renders this evaluation limited. Perhaps once adequate resuscitation has been performed and lung findings are improving repeat imaging may be attempted with intravenous contrast, in order to evaluate for the presence or absence of acute traumatic injury. Hepatosplenomegaly. Free fluid within the deep pelvis, never a normal finding in a male patient. Abdomen Ultrasound 06/05/24 08:52 IMPRESSION: 1. Small volume of ascites. Chest X-Ray 06/06/24 06:18 Impression: Multifocal bilateral pneumonia, unchanged. Stable support tubes. Labs Labs: Laboratory Results - last 24 hr 06/03/24 06/05/24 06/05/24 22:09 03:25 05:15 WBC RBC Hgb Hct MCV MCH MCHC RDW Plt Count MPV Immature Gran % (Auto) Neut % (Auto) Lymph % (Auto) Reagan % (Auto) Eos % (Auto) Baso % (Auto) Lymph # (Auto) Reagan # (Auto) Eos # (Auto) Baso # (Auto) Abs Immat Gran (auto) Absolute Neuts (auto) Absolute Nucleated RBC Total Counted Neutrophils % (Manual) Band Neutrophils % Lymphocytes % (Manual) Monocytes % (Manual) Nucleated RBC % Abs Neuts (Manual) Abs Lymphs (Manual) Abs Monocytes (Manual) Platelet Estimate Poikilocytosis Ovalocytes Schistocytes APTT Puncture Site ABG pH ABG pCO2 ABG pO2 ABG PO2/FiO2 Ratio ABG HCO3 ABG O2 Saturation ABG O2 Content ABG Base Excess A-a Gradient Oxyhemoglobin Carboxyhemoglobin Methemoglobin Reduced Hemoglobin Total Hemoglobin O2 Delivery Device O2 Liters/Min Minute Volume Vent Rate Vent Mode FiO2 Tidal Volume PEEP Peak Inspir Pressure Pressure Support Sodium Potassium Chloride Carbon Dioxide Anion Gap BUN Creatinine Estim Creat Clear Calc Estimated GFR Glucose POC Capillary Glucose Calcium Phosphorus Magnesium Total Bilirubin AST ALT Alkaline Phosphatase Total Protein 4.9 L Albumin Triglycerides Urine Osmolality 387 Ur Random Creatinine 96 U Random Total Protein 121 H Protein/Creatinin Ratio 1260 H Vancomycin Trough Hepatitis A IgM Ab Negative Hep Bs Antigen Negative Hep B Core IgM Ab Negative Hepatitis C Ab Screen Negative 06/05/24 06/05/24 06/05/24 11:50 11:56 14:05 WBC RBC Hgb Hct MCV MCH MCHC RDW Plt Count MPV Immature Gran % (Auto) Neut % (Auto) Lymph % (Auto) Reagan % (Auto) Eos % (Auto) Baso % (Auto) Lymph # (Auto) Reagan # (Auto) Eos # (Auto) Baso # (Auto) Abs Immat Gran (auto) Absolute Neuts (auto) Absolute Nucleated RBC Total Counted Neutrophils % (Manual) Band Neutrophils % Lymphocytes % (Manual) Monocytes % (Manual) Nucleated RBC % Abs Neuts (Manual) Abs Lymphs (Manual) Abs Monocytes (Manual) Platelet Estimate Poikilocytosis Ovalocytes Schistocytes APTT 71.4 H Puncture Site ABG pH ABG pCO2 ABG pO2 ABG PO2/FiO2 Ratio ABG HCO3 ABG O2 Saturation ABG O2 Content ABG Base Excess A-a Gradient Oxyhemoglobin Carboxyhemoglobin Methemoglobin Reduced Hemoglobin Total Hemoglobin O2 Delivery Device O2 Liters/Min Minute Volume Vent Rate Vent Mode FiO2 Tidal Volume PEEP Peak Inspir Pressure Pressure Support Sodium Potassium Chloride Carbon Dioxide Anion Gap BUN Creatinine Estim Creat Clear Calc Estimated GFR Glucose POC Capillary Glucose 151 H Calcium Phosphorus Magnesium Total Bilirubin AST ALT Alkaline Phosphatase Total Protein Albumin Triglycerides 68 Urine Osmolality Ur Random Creatinine U Random Total Protein Protein/Creatinin Ratio Vancomycin Trough 8.5 L Hepatitis A IgM Ab Hep Bs Antigen Hep B Core IgM Ab Hepatitis C Ab Screen 06/05/24 06/05/24 06/06/24 18:09 18:58 00:14 WBC RBC Hgb Hct MCV MCH MCHC RDW Plt Count MPV Immature Gran % (Auto) Neut % (Auto) Lymph % (Auto) Reagan % (Auto) Eos % (Auto) Baso % (Auto) Lymph # (Auto) Reagan # (Auto) Eos # (Auto) Baso # (Auto) Abs Immat Gran (auto) Absolute Neuts (auto) Absolute Nucleated RBC Total Counted Neutrophils % (Manual) Band Neutrophils % Lymphocytes % (Manual) Monocytes % (Manual) Nucleated RBC % Abs Neuts (Manual) Abs Lymphs (Manual) Abs Monocytes (Manual) Platelet Estimate Poikilocytosis Ovalocytes Schistocytes APTT 74.9 H Puncture Site ABG pH ABG pCO2 ABG pO2 ABG PO2/FiO2 Ratio ABG HCO3 ABG O2 Saturation ABG O2 Content ABG Base Excess A-a Gradient Oxyhemoglobin Carboxyhemoglobin Methemoglobin Reduced Hemoglobin Total Hemoglobin O2 Delivery Device O2 Liters/Min Minute Volume Vent Rate Vent Mode FiO2 Tidal Volume PEEP Peak Inspir Pressure Pressure Support Sodium Potassium Chloride Carbon Dioxide Anion Gap BUN Creatinine Estim Creat Clear Calc Estimated GFR Glucose POC Capillary Glucose 151 H 152 H Calcium Phosphorus Magnesium Total Bilirubin AST ALT Alkaline Phosphatase Total Protein Albumin Triglycerides Urine Osmolality Ur Random Creatinine U Random Total Protein Protein/Creatinin Ratio Vancomycin Trough Hepatitis A IgM Ab Hep Bs Antigen Hep B Core IgM Ab Hepatitis C Ab Screen 06/06/24 06/06/24 04:44 04:50 WBC 19.0 H RBC 2.78 L Hgb 8.6 L Hct 25.0 L MCV 89.9 MCH 30.9 MCHC 34.4 RDW 13.2 Plt Count 196 MPV 9.4 Immature Gran % (Auto) Not Reportable Neut % (Auto) Not Reportable Lymph % (Auto) Not Reportable Reagan % (Auto) Not Reportable Eos % (Auto) Not Reportable Baso % (Auto) Not Reportable Lymph # (Auto) Not Reportable Reagan # (Auto) Not Reportable Eos # (Auto) Not Reportable Baso # (Auto) Not Reportable Abs Immat Gran (auto) Not Reportable Absolute Neuts (auto) Not Reportable Absolute Nucleated RBC Not Reportable Total Counted 100 Neutrophils % (Manual) 88 H Band Neutrophils % 7 H Lymphocytes % (Manual) 3 L Monocytes % (Manual) 2 L Nucleated RBC % Not Reportable Abs Neuts (Manual) 18.05 H Abs Lymphs (Manual) 0.57 L Abs Monocytes (Manual) 0.38 Platelet Estimate Adequate Poikilocytosis 1+ Ovalocytes 1+ Schistocytes None seen APTT 62.5 H Puncture Site Left radial ABG pH 7.262 L* ABG pCO2 64.1 H* ABG pO2 101.8 H ABG PO2/FiO2 Ratio 2.55 ABG HCO3 28.2 H ABG O2 Saturation 96.6 ABG O2 Content 14.6 L ABG Base Excess 0.3 A-a Gradient 109.7 Oxyhemoglobin 97.0 Carboxyhemoglobin 0.3 Methemoglobin 0.1 Reduced Hemoglobin 2.6 Total Hemoglobin 10.6 L O2 Delivery Device Ventilator O2 Liters/Min Not Reportable Minute Volume Not Reportable Vent Rate 28 Vent Mode Cmv FiO2 40 Tidal Volume 400 PEEP 12 Peak Inspir Pressure Not Reportable Pressure Support Not Reportable Sodium 123 L Potassium 3.7 Chloride 85 L Carbon Dioxide 29 Anion Gap 9 BUN 74 H D Creatinine 1.74 H Estim Creat Clear Calc 44 Estimated GFR 42 L Glucose 166 H POC Capillary Glucose Calcium 7.9 L Phosphorus 4.3 Magnesium 2.7 H Total Bilirubin 0.5 AST 257 H ALT 81 H Alkaline Phosphatase 56 Total Protein 5.0 L Albumin 2.4 L Triglycerides Urine Osmolality Ur Random Creatinine U Random Total Protein Protein/Creatinin Ratio Vancomycin Trough Hepatitis A IgM Ab Hep Bs Antigen Hep B Core IgM Ab Hepatitis C Ab Screen Quality VTE Prophylaxis VTE prophylaxis: pharmacologic ordered (currently on heparin drip)
--- NOTE | 2024-06-06 09:30 | P.PNNP_ITS ---
Progress Note: A&P Assessment and Plan (1) SABA (acute kidney injury): Code(s): N17.9 - Acute kidney failure, unspecified Status: Acute Assessment and Plan: * relatively stable * outpatient labs reviewed: * creatinine 0.97mg/dl on 12/26/23 * creatinie 0.82mg/dl on 10/19/22 * noted admission creatinine of 1.54mg/dl * suspect multifactorial etiology: * prerenal factors/hypovolemia * infection/sepsis * hemodynamic instability * hypoxia * contrast (although creatinine elevated before exposure -- could hamper recovery) * other(?) * evaluation to date noted: * CT without evidence of obstruction * UA with blood and protein but no infection * urine electrolytes prerenal * CPK normal * s/p IVF resuscitation * follow repeat labs and UOP (2) Hyponatremia: Code(s): E87.1 - Hypo-osmolality and hyponatremia Status: Acute Assessment and Plan: * slow improvement * acute * outpatient labs reviewed: * sodium 137mmol/L on 12/26/23 * sodium 140mmol/L on 10/19/22 * admission sodium 117mmol/L * etiology not entirely clear: * volume depletion? * excess free water intake? * possible medications? * secondary to acute/chronic lung disease (known smoker x 25 years) * SIADH? * s/p IVF resuscitation * hold further IVFs at this time * evaluation to date noted: * TSH okay * cortisol elevated (but also on steroids) * serum/urine osmolality, SPEP/UPEP & kappa/lambda ratio pending * goal of therapy is a change in sodium no more than 8mmol/24 hours * start normal saline tube flushes * follow trend of serial sodium levels (3) Septic shock: Code(s): A41.9 - Sepsis, unspecified organism; R65.21 - Severe sepsis with septic shock Status: Acute Assessment and Plan: * as noted by hypotension unresponsive to IVFs * requiring vasopressor therapy to maintain MAP * wean as tolerated * thought to be secondary to pneumonia +/- influenza * culture data noted: * blood cultures (06/03) with Streptococcus pneumoniae * follow repeat cultures * on antibiotics * on stress dose steroids (4) Acute respiratory failure with hypoxia: Code(s): J96.01 - Acute respiratory failure with hypoxia Status: Acute Assessment and Plan: * thought to be secondary to pneumonia +/- influenza * intubated in the ER due to worsening hypoxia and tachypnea (impending respiratory failure) * prone positioning to assist with oxygenation - back to supine position * viral testing negative for RSV and COVID * requiring sedation along with paralytics for ventilator synchrony * continue supportive therapy (5) Multifocal pneumonia: Code(s): J18.9 - Pneumonia, unspecified organism Status: Acute Assessment and Plan: * as noted by admission imaging * continue therapy as outlined (6) Atrial fibrillation with rapid ventricular response: Code(s): I48.91 - Unspecified atrial fibrillation Status: Acute Assessment and Plan: * failed rate control measures with IV metoprolol and cardizem * s/p dC cardioversion with return with brief return to NSR * on heparin gtt and amiodarone gtt * Echo results noted (06/05): * left ventricular systolic function is moderately reduced, estimated at 30- 35% * left ventricular diastolic function is grade I diastolic dysfunction * mild mitral valve regurgitation * mild tricuspid valve regurgitation * estimated pulmonary arterial systolic pressure is 34 mmHg * Cardiology following (7) Influenza A: Code(s): J10.1 - Influenza due to other identified influenza virus with other respiratory manifestations Status: Acute Assessment and Plan: * positive testing in ER * on Tamiflu (8) Schizophrenia: Code(s): F20.9 - Schizophrenia, unspecified Status: Acute Assessment and Plan: * known history * unclear what medication he was taking... Will continue to follow. L Subjective Date/time seen: 06/06/24 09:30 Interval history: Follow-up for acute kidney injury/acute renal failure and acute hyponatremia. Remains intubated/sedated/paralyzed and on mechanical ventilation; weaned off vasopressor therapy with stable hemodynamics noted; renal functon/creatinine about the same with stable urine output noted; sodium stable if not slowly improving as well. Exam 2 Narrative: General: middle aged male intubated/sedated/paralyzed and on mechanical ventilation Heart:IRRR normal S1 and S2; no rub Lungs: coarse breath sounds with scattered rales Abdomen: soft, nontender, nondistended, decreased bowel sounds Extremities: no cyanosis or clubbing; no edema Skin: warm and intact Objective Data Vital Signs Vital Signs: Vital Signs Temp Pulse Resp BP Pulse Ox O2 Del Method FiO2 06/06/24 09:11 115 H 28 H 02/26/25 09:04 89 28 H 116/68 06/06/24 08:10 76 28 H 06/06/24 08:00 99.8 F H 90 27 H 105/50 L 96 06/06/24 08:00 40 06/06/24 08:00 76 06/06/24 08:00 78 100/55 L 06/06/24 08:00 78 28 H 100/55 L 06/06/24 08:00 78 100/55 L 06/06/24 08:00 78 100/55 L 06/06/24 08:00 78 28 H 06/06/24 08:00 78 28 H 06/06/24 07:55 77 28 H 06/06/24 07:55 77 97 Mechanical Ventilation 40 06/06/24 06:14 86 96 Mechanical Ventilation 40 06/06/24 06:00 98.0 F 83 28 H 104/57 L 96 06/06/24 06:00 84 06/06/24 06:00 84 104/57 L 06/06/24 06:00 84 28 H 104/57 L 06/06/24 06:00 84 104/57 L 06/06/24 06:00 84 104/57 L 06/06/24 06:00 82 28 H 06/06/24 06:00 81 28 H 06/06/24 05:30 94 107/62 06/06/24 04:50 80 97 Mechanical Ventilation 40 06/06/24 04:00 83 100/65 06/06/24 04:00 83 28 H 100/65 06/06/24 04:00 82 100/65 06/06/24 04:00 82 100/65 06/06/24 04:00 82 28 H 06/06/24 04:00 83 28 H 06/06/24 04:00 98.7 F 82 28 H 100/65 96 06/06/24 03:23 85 28 H 96 Mechanical Ventilation 40 06/06/24 03:22 40 06/06/24 02:15 92 110/69 06/06/24 02:00 82 108/60 06/06/24 02:00 102 H 28 H 108/60 06/06/24 02:00 102 H 108/60 06/06/24 02:00 102 H 108/60 06/06/24 02:00 102 H 28 H 06/06/24 02:00 102 H 28 H 06/06/24 02:00 98.7 F 98 28 H 108/60 96 06/06/24 02:00 103 H 06/06/24 01:43 80 28 H 06/06/24 01:29 82 28 H 06/06/24 01:29 82 97 Mechanical Ventilation 40 06/06/24 00:01 82 102/69 06/06/24 00:01 82 28 H 102/69 06/06/24 00:01 82 102/69 06/06/24 00:01 82 102/69 06/06/24 00:01 82 28 H 06/06/24 00:01 82 28 H 06/06/24 00:00 83 06/06/24 00:00 98.7 F 82 28 H 102/69 96 06/05/24 23:18 Mechanical Ventilation 40 06/05/24 23:02 90 28 H 96 Mechanical Ventilation 40 06/05/24 23:02 40 06/05/24 22:52 87 102/64 06/05/24 22:52 87 102/64 06/05/24 22:00 87 28 H 100/62 06/05/24 22:00 87 28 H 100/62 06/05/24 22:00 88 100/62 06/05/24 22:00 87 100/62 06/05/24 22:00 87 100/62 06/05/24 22:00 86 28 H 06/05/24 22:00 86 28 H 06/05/24 22:00 98.8 F 87 26 H 100/62 96 06/05/24 22:00 88 06/05/24 21:45 87 101/62 06/05/24 20:45 90 112/57 L 06/05/24 20:26 96 28 H 06/05/24 20:23 77 96 Mechanical Ventilation 40 06/05/24 20:00 84 06/05/24 20:00 96 28 H 96 Mechanical Ventilation 40 06/05/24 20:00 99.4 F 893 H 28 H 119/59 L 96 06/05/24 20:00 40 06/05/24 20:00 89 119/59 L 06/05/24 20:00 89 28 H 119/59 L 06/05/24 20:00 90 119/59 L 06/05/24 20:00 90 119/59 L 06/05/24 20:00 89 28 H 06/05/24 20:00 92 28 H 06/05/24 19:48 79 28 H 06/05/24 18:54 84 28 H 06/05/24 18:54 84 28 H 06/05/24 18:00 99.5 F 82 28 H 102/60 97 06/05/24 18:00 85 06/05/24 18:00 82 102/60 06/05/24 18:00 82 102/60 06/05/24 18:00 82 26 H 102/60 06/05/24 18:00 82 102/60 06/05/24 18:00 82 28 H 06/05/24 18:00 82 28 H 06/05/24 17:18 84 96 Mechanical Ventilation 40 06/05/24 16:30 89 106/68 06/05/24 16:29 89 106/68 06/05/24 16:28 89 28 H 06/05/24 16:28 89 28 H 06/05/24 16:00 79 107/67 06/05/24 16:00 88 28 H 06/05/24 16:00 99.9 F H 84 28 H 107/67 97 06/05/24 16:00 84 06/05/24 16:00 40 06/05/24 16:00 86 28 H 106/68 06/05/24 16:00 89 106/68 06/05/24 16:00 89 28 H 06/05/24 14:46 88 28 H 06/05/24 14:33 90 104/74 06/05/24 14:33 90 104/74 06/05/24 14:30 91 28 H 06/05/24 14:30 91 96 Mechanical Ventilation 40 Intake/Output Intake/Output: Intake & Output 06/03/24 06/04/24 06/05/24 06/06/24 23:59 23:59 23:59 23:59 Intake Total 3632.5 5338.0 3171.1 1981.8 Output Total 1375 1075 675 Balance 3632.5 3963.0 2096.1 1306.8 Meds/Results Medications: Active Medications Generic Name Dose Route Start Last Admin Trade Name Freq PRN Reason Stop Dose Admin Acetaminophen 650 mg 06/03/24 13:56 Acetaminophen Elixir 325 Mg/10.15 Ml Udc FEED TUBE Q4H PRN Fever Albuterol/Ipratropium 3 ml 06/03/24 13:50 Ipratropium 0.5 Mg/Albuterol Sulfate 2.5 Mg Ampul.Neb 3 Ml INHALATION Q6HRT PRN Wheezng Albuterol/Ipratropium 3 ml 06/03/24 20:00 06/06/24 13:44 Ipratropium 0.5 Mg/Albuterol Sulfate 2.5 Mg Ampul.Neb 3 Ml INHALATION 3 ml Q6HRT ARABELLA Administration Amiodarone HCl 400 mg 06/06/24 09:40 06/06/24 10:44 Amiodarone Hcl 200 Mg Tablet PO 06/13/24 09:39 400 mg Q12HR ARABELLA Administration Amiodarone HCl 200 mg 06/14/24 08:00 Amiodarone Hcl 200 Mg Tablet PO DAILY@0800 ARABELLA Dextrose 12.5 gm 06/03/24 13:46 Dextrose 50% 25 Gm/50 Ml Syringe IV PUSH PRN PRN Hypoglycemia Protocol Glucagon 1 mg 06/03/24 13:46 Glucagon For Inj 1 Mg Vial IM PRN PRN Hypoglycemia Protocol Glucose 15 gm 06/03/24 13:46 Glucose Oral Gel 15 Gm Of Glucse In 37.5 Gm Tube PO PRN PRN Hypoglycemia Protocol Heparin Sodium (Porcine) 6,000 units 06/03/24 12:33 06/04/24 23:06 Heparin Sodium 5,000 Units/Ml Vial IV PUSH 6,000 units PRN PRN Administration aPTT less than 55 seconds Heparin Sodium (Porcine) 3,000 units 06/03/24 12:33 06/06/24 05:43 Heparin Sodium 5,000 Units/Ml Vial IV PUSH 3,000 units PRN PRN Administration aPTT 55 - 70 seconds Hydrocortisone Sodium Succinate 100 mg 06/03/24 22:00 06/06/24 05:29 Hydrocortisone Sodium Succinate 100 Mg/2 Ml Vial IV PUSH 100 mg Q8HR ARABELLA Administration Heparin Sodium/Dextrose 25,000 units in 250 mls @ 26 mls/hr 06/03/24 12:35 06/06/24 12:30 Heparin Sodium/D5w 100 Units/Ml IV CONT 2,600 units/hr .[id number] ARABELLA 26 mls/hr Titration Protocol 2,600 UNITS/HR Dextrose 1,000 mls @ 100 mls/hr 06/03/24 13:46 Dextrose 5% 1,000 Ml IVPB PRN PRN Hypoglycemia Protocol Fentanyl Citrate 2,500 mcg in 250 mls @ 17.5 mls/hr 06/03/24 13:50 06/06/24 12:00 Fentanyl 2,500 Mcg/Ns 250 Ml IV CONT 175 mcg/hr .[id number] ARABELLA 17.5 mls/hr Titration Protocol 175 MCG/HR Midazolam HCl 100 mg in 100 mls @ 4 mls/hr 06/03/24 13:50 06/06/24 12:00 Versed 100 Mg/Ns 100 Ml IV CONT 4 mg/hr .Q25H ARABELLA 4 mls/hr Titration Protocol 4 MG/HR Doxycycline Hyclate 100 mg in 100 mls @ 100 mls/hr 06/03/24 16:00 06/06/24 04:02 Vibramycin 100 Mg/Ns 100 Ml IVPB 06/08/24 15:59 Infused Q12H ARABELLA Infusion Cisatracurium Besylate 200 mg/ 100 mls @ 4.386 mls/hr 06/03/24 17:45 06/06/24 12:00 Dextrose IV CONT 2 mcg/kg/min .[id number] ARABELLA 4.39 mls/hr Titration Protocol 2 MCG/KG/MIN Norepinephrine Bitartrate 8 mg in 250 mls @ 0 mls/hr 06/03/24 17:50 06/06/24 12:00 Levophed 8 Mg/D5w 250 Ml IV CONT 0 mcg/min .Q0M ARABELLA 0 mls/hr Titration Protocol 0 MCG/MIN Cefepime HCl 2 gm in 50 mls @ 100 mls/hr 06/04/24 15:00 06/06/24 03:32 Maxipime 2 Gm/Ns 50 Ml IVPB Infused Q12H ARABELLA Infusion Insulin Aspart 3 - 6 units 06/03/24 18:00 06/06/24 11:52 Insulin Aspart (*Bkc) 100 Units/Ml SUB-Q Not Given Q6HR ARABELLA Protocol Metoclopramide HCl 10 mg 06/06/24 12:00 06/06/24 11:46 Metoclopramide Hcl Inj 10 Mg/2 Ml Vial IV PUSH 06/07/24 06:01 10 mg Q6HR ARABELLA Administration Midazolam HCl 2 mg 06/03/24 13:48 06/03/24 16:40 Midazolam Hcl (*Crx) 2 Mg/2 Ml Vial IV PUSH 2 mg Q5M PRN Administration ventilator asynchrony Miscellaneous Information 1 each 06/06/24 00:01 Nimbex Needs To Be Renewed Or It Will Automatically Discontinue. XX 07/06/24 00:00 CLARIFY ARABELLA Miscellaneous Information 1 each 06/05/24 22:55 Mix Ivs In Ns If Possible XX 06/05/24 22:56 ONCE ONE Multi-Ingred Cream/Lotion/Oil/Oint 1 applic 06/03/24 14:00 06/06/24 09:01 Mineral Oil/White Petrolatum Ointment EACH EYE 1 applic Q12HR ARABELLA Administration Oseltamivir Phosphate 30 mg 06/04/24 09:00 06/06/24 09:01 Oseltamivir Phosphate Oral Susp 30 Mg/5 Ml Syringe FEED TUBE 06/09/24 08:59 30 mg Q12HR ARABELLA Administration Pantoprazole Sodium 40 mg 06/04/24 09:00 06/06/24 09:00 Pantoprazole Sodium Iv 40 Mg Vial IV PUSH 40 mg QAM ARABELLA Administration Perflutren Lipid Microsphere 0 ml 06/03/24 13:51 Perflutren Lipid Microspheres 1.5 Ml Vial Diluted To 10 Ml Total Volume IV PUSH 06/06/24 13:52 ONCE PRN adequate visualization Protocol Sodium Chloride 10 ml 06/03/24 22:00 06/06/24 05:29 Central Line Flush IV PUSH 10 ml Q8HR ARABELLA Administration Sodium Chloride 20 ml 06/03/24 19:36 Central Line Flush IV PUSH PRN PRN after blood draws Radiology Results: ITS Impressions Chest/Abdomen/Pelvis CT 06/03/24 17:44 IMPRESSION: Dense bilateral pulmonary infiltrates. Loculated dense effusion within the left upper lobe, similar to what one might see with an adjacent fracture. Although, significant respiratory artifact renders this evaluation limited. Perhaps once adequate resuscitation has been performed and lung findings are improving repeat imaging may be attempted with intravenous contrast, in order to evaluate for the presence or absence of acute traumatic injury. Hepatosplenomegaly. Free fluid within the deep pelvis, never a normal finding in a male patient. Abdomen Ultrasound 06/05/24 08:52 IMPRESSION: 1. Small volume of ascites. Chest X-Ray 06/06/24 06:18 Impression: Multifocal bilateral pneumonia, unchanged. Stable support tubes. Labs Labs: Laboratory Tests 06/06/24 04:44 06/06/24 04:44 Calcium 7.9 L Phosphorus 4.3 Magnesium 2.7 H Total Bilirubin 0.5 AST 257 H ALT 81 H Alkaline Phosphatase 56 Total Protein 5.0 L Albumin 2.4 L Microbiology 06/03/24 12:45 Blood Blood Culture - Final Streptococcus pneumoniae 06/03/24 12:45 Blood Blood Culture - Final Streptococcus pneumoniae
[2024-06-06] MEDS: FENTANYL 2,500MCG/NS250ML(*CRX 2,500 MCG/250 ML BAG 17.5 MCG IV CONT ×2 (09:32→23:04)
[2024-06-06] MEDS: HEPARIN SOD/D5W 100 UNITS/ML 25,000 UNITS/250 ML BAG 26 UNITS IV CONT ×2 (10:43→20:34)
[2024-06-06] MEDS: AMIODARONE HCL 200 MG TABLET 400 MG PO ×2 (10:44→20:32)
--- NOTE | 2024-06-06 11:13 | PCFNICU ---
ICU Rounding Note: Pt current nutrition is Vital AF 1.2 at 20 ml/hr Last recorded weight is 78.1 kg, up from 74.6 kg on admit. Bowel Motility: No BM reported. Labs Reviewed:GFR 42, BUN 74, Cr 1.74, Glu 166, Mg 2.7 Meds Noted:Fentanyl, Versed, Reglan, Heparin Skin: WNL Additional Notes:Patient remains on mechanical vent. Nursing reporting elevated residuals today. Plans to start Reglan. Tube feedings will continue of Vital AF 1.2 at 20 ml/hr today. Water flush is changing to Normal Saline flush per nephrology. Following daily in ICU rounds. Will monitor weight, labs, skin, diet orders, meds every Tuesday and Tuesday.
[2024-06-06] MEDS: METOCLOPRAMIDE HCL INJ 10 MG/2 ML VIAL IV PUSH ×3 (11:46→23:11)
[2024-06-06 11:55] LABS: Glucose Point of Care 168 mg/dl (65-105)
--- NOTE | 2024-06-06 12:09 | PM.IMPN ---
Progress Note: A&P Assessment and Plan (1) Acute respiratory failure: Code(s): J96.00 - Acute respiratory failure, unspecified whether with hypoxia or hypercapnia Status: Acute Assessment and Plan: Acute respiratory failure secondary to pneumonia and influenza -06/03: intubated in the ER -patient remains on CMV mode of ventilation, peep of 12 and 50% FiO2 this morning -06/03: Patient was proned for approximately 20 hours -influenza A positive; negative for COVID, RSV -urine Legionella and pneumococcal antigen obtained and pending, -mycoplasma pneumonia pending CT Chest/Abd/Pelvis 06/03: Dense bilateral pulmonary infiltrates with loculated dense effusion within the left upper lobe, similar to what one might see with an adjacent fracture. Although, significant respiratory artifact renders this evaluation limited.Perhaps once adequate resuscitation has been performed and lung findings are improving repeat imaging may be attempted with intravenous contrast, in order to evaluate for the presence or absence of acute traumatic injury. Hepatosplenomegaly. Free fluid within the deep pelvis, never a normal finding in a male patient. -continue bronchodilators -sedated with fentanyl, Versed. Also paralyzed with Nimbex for ventilator synchrony. Have asked the bedside RN to start weaning Nimbex to off - chest x-ray this morning: Multifocal bilateral pneumonia, unchanged. WBC better. Bandemia improved. ABG noted. Vent management per intenvist. (2) Septic shock: Code(s): A41.9 - Sepsis, unspecified organism; R65.21 - Severe sepsis with septic shock Status: Acute Assessment and Plan: Patient with hypotension, refractory to IV fluids, -etiology likely related to pneumonia, UA was unremarkable -patient received adequate amount of IV fluids -06/03: blood cultures growing -Streptococcus pneumonia / bottles -lactic acid has normalized -continue vancomycin cefepime and doxycycline (06/03) -currently OFF Levophed (06/05) and vasopressin (06/06) -Continue to maintain MAP > 65 mm Hg or SBP > 100 mm Hg -continue stress dose steroids (06/03) -06/06: Repeat blood cultures (3) Pneumonia: Code(s): J18.9 - Pneumonia, unspecified organism Status: Acute Assessment and Plan: See above (4) Hyponatremia: Code(s): E87.1 - Hypo-osmolality and hyponatremia Status: Acute Assessment and Plan: Hyponatremia with sodium levels of 117 on admission. Etiology is not clear at this point in this could be secondary to excessive water intake, PNA, pain, SIADH, CHF and/or SSRI -patient received adequate IV fluids Na level climbing slowly -nephrology following the patient and appreciate the evaluation and recommendations -continue to monitor sodium levels (5) SABA (acute kidney injury): Code(s): N17.9 - Acute kidney failure, unspecified Status: Acute Assessment and Plan: Baseline creatinine unknown Presented with creatinine of 1.5 for which could be secondary to sepsis and hypovolemia Status post IV fluids Appreciate nephrology following the patient 06/03: CTA chest abdomen pelvis did not show any hydronephrosis renal calculi Jimenez in place, urine output has been low Urine lytes reflective of prerenal picture, patient has had adequate IV fluids No contrast exposure -continue to monitor urine output, electrolytes and renal function (6) Atrial fibrillation with RVR: Code(s): I48.91 - Unspecified atrial fibrillation Status: Acute Assessment and Plan: Status post DC cardioversion in ER. Currently on heparin infusion. -appreciate cardiology evaluation and recommendations 06/05/2024: Echocardiogram with EF 30-35%, grade I diastolic dysfxn, mild valve disease and PASP 34. -patient received amiodarone bolus x2, now on amiodarone at 0.5 mg/min -off pressors -will switch amiodarone infusion to p.o. amiodarone per Cardiology recommendations (7) Elevated brain natriuretic peptide (BNP) level: Code(s): R79.89 - Other specified abnormal findings of blood chemistry Status: Acute Assessment and Plan: Patient has elevated BNP of 4190, although no evidence of volume overload from exam CT chest showed multifocal pneumonia Echocardiogram was above Cautious IV fluid (8) Hypertension: Code(s): I10 - Essential (primary) hypertension Status: Acute Assessment and Plan: Holding all antihypertensives due to low BP from shock Off pressors today. Follow (9) Influenza A: Code(s): J10.1 - Influenza due to other identified influenza virus with other respiratory manifestations Status: Acute Assessment and Plan: Patient was tested positive for influenza A, on Tamiflu (10) Schizophrenia: Code(s): F20.9 - Schizophrenia, unspecified Status: Acute Assessment and Plan: History of schizophrenia and other behavior issues Unknown if he takes any medications Plan DVT prophylaxis -heparin infusion for AFib RVR Stress ulcer prophylaxis -Protonix Nutrition: Trickle tube feeds, high tube feed residuals Code Status -DNR Subjective Date/time seen: 06/06/24 12:09 Interval history: 49yo male smoker with history of HTN, schizophrenia, suicide attempt, depression, and possible alcohol abuse who presented to the emergency department via EMS from [facility] after he was found to have abnormal vital signs. Patient with acute respiratory failure, pneumonia, bacteremia, acute kidney injury, hyponatremia, and AFib RVR status post DC cardioversion. Assuming care. Chart reviewed. Patient was weaned off Levophed yesterday and vasopressin earlier this morning. He is not tolerates tube feedings and Reglan started. He remains on Nimbex. He remains intubated. Review of Systems Review of Systems: ROS unobtainable: Yes unobtainable due to endotracheal tube Exam Narrative: Tm 100.3 115/65 95 26 97% MV Gen - Intubated, sedated and paralyzed HEENT - ETT and OG secured Chest - mildly coarse BS anteriorly CV - RRR S1/S2 with frequent extra beats. Tele showing PVCs and bigeminy Abd - Soft, Positive BS - Jimenez secured draining clear yellow urine Ext - No pedal edema. 2+ right and 1+ left DP Neuro - paralyzed Psych - unable to assess Skin - Warm and dry Objective Data Vital Signs Vital Signs: Vital Signs - 24 hr 06/05/24 13:59 06/05/24 14:00 06/05/24 14:00 Temperature Pulse Rate 89 89 89 Respiratory Rate 28 H 28 H Blood Pressure 110/74 Pulse Oximetry Oxygen Delivery Fraction of Inspired Oxygen 06/05/24 14:00 06/05/24 14:00 06/05/24 14:00 Temperature Pulse Rate 89 89 89 Respiratory Rate 28 H Blood Pressure 105/74 105/74 105/74 Pulse Oximetry Oxygen Delivery Fraction of Inspired Oxygen 06/05/24 14:00 06/05/24 14:00 06/05/24 14:30 Temperature 100.3 F H Pulse Rate 89 90 91 Respiratory Rate 28 H Blood Pressure 109/72 Pulse Oximetry 97 96 Oxygen Delivery Mechanical Ventilation Fraction of Inspired Oxygen 40 06/05/24 14:30 06/05/24 14:33 06/05/24 14:33 Temperature Pulse Rate 91 90 90 Respiratory Rate 28 H Blood Pressure 104/74 104/74 Pulse Oximetry Oxygen Delivery Fraction of Inspired Oxygen 06/05/24 14:46 06/05/24 16:00 06/05/24 16:00 Temperature Pulse Rate 88 89 89 Respiratory Rate 28 H 28 H Blood Pressure 106/68 Pulse Oximetry Oxygen Delivery Fraction of Inspired Oxygen 06/05/24 16:00 06/05/24 16:00 06/05/24 16:00 Temperature Pulse Rate 86 84 Respiratory Rate 28 H Blood Pressure 106/68 Pulse Oximetry Oxygen Delivery Fraction of Inspired Oxygen 40 06/05/24 16:00 06/05/24 16:00 06/05/24 16:00 Temperature 99.9 F H Pulse Rate 84 88 79 Respiratory Rate 28 H 28 H Blood Pressure 107/67 107/67 Pulse Oximetry 97 Oxygen Delivery Fraction of Inspired Oxygen 06/05/24 16:28 06/05/24 16:28 06/05/24 16:29 Temperature Pulse Rate 89 89 89 Respiratory Rate 28 H 28 H Blood Pressure 106/68 Pulse Oximetry Oxygen Delivery Fraction of Inspired Oxygen 06/05/24 16:30 06/05/24 17:18 06/05/24 18:00 Temperature Pulse Rate 89 84 82 Respiratory Rate 28 H Blood Pressure 106/68 Pulse Oximetry 96 Oxygen Delivery Mechanical Ventilation Fraction of Inspired Oxygen 40 06/05/24 18:00 06/05/24 18:00 06/05/24 18:00 Temperature Pulse Rate 82 82 82 Respiratory Rate 28 H 26 H Blood Pressure 102/60 102/60 Pulse Oximetry Oxygen Delivery Fraction of Inspired Oxygen 06/05/24 18:00 06/05/24 18:00 06/05/24 18:00 Temperature Pulse Rate 82 82 85 Respiratory Rate Blood Pressure 102/60 102/60 Pulse Oximetry Oxygen Delivery Fraction of Inspired Oxygen 06/05/24 18:00 06/05/24 18:54 06/05/24 18:54 Temperature 99.5 F Pulse Rate 82 84 84 Respiratory Rate 28 H 28 H 28 H Blood Pressure 102/60 Pulse Oximetry 97 Oxygen Delivery Fraction of Inspired Oxygen 06/05/24 19:48 06/05/24 20:00 06/05/24 20:00 Temperature Pulse Rate 79 92 89 Respiratory Rate 28 H 28 H 28 H Blood Pressure Pulse Oximetry Oxygen Delivery Fraction of Inspired Oxygen 06/05/24 20:00 06/05/24 20:00 06/05/24 20:00 Temperature Pulse Rate 90 90 89 Respiratory Rate 28 H Blood Pressure 119/59 L 119/59 L 119/59 L Pulse Oximetry Oxygen Delivery Fraction of Inspired Oxygen 06/05/24 20:00 06/05/24 20:00 06/05/24 20:00 Temperature 99.4 F Pulse Rate 89 893 H Respiratory Rate 28 H Blood Pressure 119/59 L 119/59 L Pulse Oximetry 96 Oxygen Delivery Fraction of Inspired Oxygen 40 06/05/24 20:00 06/05/24 20:00 06/05/24 20:23 Temperature Pulse Rate 96 84 77 Respiratory Rate 28 H Blood Pressure Pulse Oximetry 96 96 Oxygen Delivery Mechanical Ventilation Mechanical Ventilation Fraction of Inspired Oxygen 40 40 06/05/24 20:26 06/05/24 20:45 06/05/24 21:45 Temperature Pulse Rate 96 90 87 Respiratory Rate 28 H Blood Pressure 112/57 L 101/62 Pulse Oximetry Oxygen Delivery Fraction of Inspired Oxygen 06/05/24 22:00 06/05/24 22:00 06/05/24 22:00 Temperature 98.8 F Pulse Rate 88 87 86 Respiratory Rate 26 H 28 H Blood Pressure 100/62 Pulse Oximetry 96 Oxygen Delivery Fraction of Inspired Oxygen 06/05/24 22:00 06/05/24 22:00 06/05/24 22:00 Temperature Pulse Rate 86 87 87 Respiratory Rate 28 H Blood Pressure 100/62 100/62 Pulse Oximetry Oxygen Delivery Fraction of Inspired Oxygen 06/05/24 22:00 06/05/24 22:00 06/05/24 22:00 Temperature Pulse Rate 88 87 87 Respiratory Rate 28 H 28 H Blood Pressure 100/62 100/62 100/62 Pulse Oximetry Oxygen Delivery Fraction of Inspired Oxygen 06/05/24 22:52 06/05/24 22:52 06/05/24 23:02 Temperature Pulse Rate 87 87 Respiratory Rate Blood Pressure 102/64 102/64 Pulse Oximetry Oxygen Delivery Fraction of Inspired Oxygen 40 06/05/24 23:02 06/05/24 23:18 06/06/24 00:00 Temperature 98.7 F Pulse Rate 90 82 Respiratory Rate 28 H 28 H Blood Pressure 102/69 Pulse Oximetry 96 96 Oxygen Delivery Mechanical Ventilation Mechanical Ventilation Fraction of Inspired Oxygen 40 40 06/06/24 00:00 06/06/24 00:01 06/06/24 00:01 Temperature Pulse Rate 83 82 82 Respiratory Rate 28 H 28 H Blood Pressure Pulse Oximetry Oxygen Delivery Fraction of Inspired Oxygen 06/06/24 00:01 06/06/24 00:01 06/06/24 00:01 Temperature Pulse Rate 82 82 82 Respiratory Rate 28 H Blood Pressure 102/69 102/69 102/69 Pulse Oximetry Oxygen Delivery Fraction of Inspired Oxygen 06/06/24 00:01 06/06/24 01:29 06/06/24 01:29 Temperature Pulse Rate 82 82 82 Respiratory Rate 28 H Blood Pressure 102/69 Pulse Oximetry 97 Oxygen Delivery Mechanical Ventilation Fraction of Inspired Oxygen 40 06/06/24 01:43 06/06/24 02:00 06/06/24 02:00 Temperature 98.7 F Pulse Rate 80 103 H 98 Respiratory Rate 28 H 28 H Blood Pressure 108/60 Pulse Oximetry 96 Oxygen Delivery Fraction of Inspired Oxygen 06/06/24 02:00 06/06/24 02:00 06/06/24 02:00 Temperature Pulse Rate 102 H 102 H 102 H Respiratory Rate 28 H 28 H Blood Pressure 108/60 Pulse Oximetry Oxygen Delivery Fraction of Inspired Oxygen 06/06/24 02:00 06/06/24 02:00 06/06/24 02:00 Temperature Pulse Rate 102 H 102 H 82 Respiratory Rate 28 H Blood Pressure 108/60 108/60 108/60 Pulse Oximetry Oxygen Delivery Fraction of Inspired Oxygen 06/06/24 02:15 06/06/24 03:22 06/06/24 03:23 Temperature Pulse Rate 92 85 Respiratory Rate 28 H Blood Pressure 110/69 Pulse Oximetry 96 Oxygen Delivery Mechanical Ventilation Fraction of Inspired Oxygen 40 40 06/06/24 04:00 06/06/24 04:00 06/06/24 04:00 Temperature 98.7 F Pulse Rate 82 83 82 Respiratory Rate 28 H 28 H 28 H Blood Pressure 100/65 Pulse Oximetry 96 Oxygen Delivery Fraction of Inspired Oxygen 06/06/24 04:00 06/06/24 04:00 06/06/24 04:00 Temperature Pulse Rate 82 82 83 Respiratory Rate 28 H Blood Pressure 100/65 100/65 100/65 Pulse Oximetry Oxygen Delivery Fraction of Inspired Oxygen 06/06/24 04:00 06/06/24 04:50 06/06/24 05:30 Temperature Pulse Rate 83 80 94 Respiratory Rate Blood Pressure 100/65 107/62 Pulse Oximetry 97 Oxygen Delivery Mechanical Ventilation Fraction of Inspired Oxygen 40 06/06/24 06:00 06/06/24 06:00 06/06/24 06:00 Temperature Pulse Rate 81 82 84 Respiratory Rate 28 H 28 H Blood Pressure 104/57 L Pulse Oximetry Oxygen Delivery Fraction of Inspired Oxygen 06/06/24 06:00 06/06/24 06:00 06/06/24 06:00 Temperature Pulse Rate 84 84 84 Respiratory Rate 28 H Blood Pressure 104/57 L 104/57 L 104/57 L Pulse Oximetry Oxygen Delivery Fraction of Inspired Oxygen 06/06/24 06:00 06/06/24 06:00 06/06/24 06:14 Temperature 98.0 F Pulse Rate 84 83 86 Respiratory Rate 28 H Blood Pressure 104/57 L Pulse Oximetry 96 96 Oxygen Delivery Mechanical Ventilation Fraction of Inspired Oxygen 40 06/06/24 07:55 06/06/24 07:55 06/06/24 08:00 Temperature Pulse Rate 77 77 78 Respiratory Rate 28 H 28 H Blood Pressure Pulse Oximetry 97 Oxygen Delivery Mechanical Ventilation Fraction of Inspired Oxygen 40 06/06/24 08:00 06/06/24 08:00 06/06/24 08:00 Temperature Pulse Rate 78 78 78 Respiratory Rate 28 H Blood Pressure 100/55 L 100/55 L Pulse Oximetry Oxygen Delivery Fraction of Inspired Oxygen 06/06/24 08:00 06/06/24 08:00 06/06/24 08:00 Temperature Pulse Rate 78 78 76 Respiratory Rate 28 H Blood Pressure 100/55 L 100/55 L Pulse Oximetry Oxygen Delivery Fraction of Inspired Oxygen 06/06/24 08:00 06/06/24 08:00 06/06/24 08:10 Temperature 99.8 F H Pulse Rate 90 76 Respiratory Rate 27 H 28 H Blood Pressure 105/50 L Pulse Oximetry 96 Oxygen Delivery Fraction of Inspired Oxygen 40 06/06/24 09:04 06/06/24 09:11 06/06/24 09:32 Temperature Pulse Rate 89 115 H 115 H Respiratory Rate 28 H 28 H 28 H Blood Pressure 116/68 Pulse Oximetry Oxygen Delivery Fraction of Inspired Oxygen 06/06/24 10:00 06/06/24 10:00 06/06/24 10:00 Temperature Pulse Rate 95 95 95 Respiratory Rate 28 H 28 H Blood Pressure 115/65 115/65 Pulse Oximetry Oxygen Delivery Fraction of Inspired Oxygen 06/06/24 10:00 06/06/24 10:00 06/06/24 10:00 Temperature Pulse Rate 95 95 95 Respiratory Rate 28 H Blood Pressure 115/65 Pulse Oximetry Oxygen Delivery Fraction of Inspired Oxygen 06/06/24 10:00 06/06/24 10:44 06/06/24 11:37 Temperature 100.3 F H Pulse Rate 98 92 82 Respiratory Rate 26 H Blood Pressure 147/70 H Pulse Oximetry 99 97 Oxygen Delivery Mechanical Ventilation Fraction of Inspired Oxygen 40 06/06/24 11:41 Temperature Pulse Rate 95 Respiratory Rate Blood Pressure 115/65 Pulse Oximetry Oxygen Delivery Fraction of Inspired Oxygen Intake/Output Intake/Output: Intake & Output 06/03/24 06/04/24 06/05/24 06/06/24 23:59 23:59 23:59 23:59 Intake Total 3632.5 5338.0 3171.1 1881.4 Output Total 1375 1075 675 Balance 3632.5 3963.0 2096.1 1206.4 Meds/Results Medications: Active Medications Generic Name Dose Route Start Last Admin Trade Name Freq PRN Reason Stop Dose Admin Acetaminophen 650 mg 06/03/24 13:56 Acetaminophen Elixir 325 Mg/10.15 Ml Udc FEED TUBE Q4H PRN Fever Albuterol/Ipratropium 3 ml 06/03/24 13:50 Ipratropium 0.5 Mg/Albuterol Sulfate 2.5 Mg Ampul.Neb 3 Ml INHALATION Q6HRT PRN Wheezng Albuterol/Ipratropium 3 ml 06/03/24 20:00 06/06/24 08:10 Ipratropium 0.5 Mg/Albuterol Sulfate 2.5 Mg Ampul.Neb 3 Ml INHALATION 3 ml Q6HRT ARABELLA Administration Amiodarone HCl 400 mg 06/06/24 09:40 06/06/24 10:44 Amiodarone Hcl 200 Mg Tablet PO 06/13/24 09:39 400 mg Q12HR ARABELLA Administration Amiodarone HCl 200 mg 06/14/24 08:00 Amiodarone Hcl 200 Mg Tablet PO DAILY@0800 ARABELLA Dextrose 12.5 gm 06/03/24 13:46 Dextrose 50% 25 Gm/50 Ml Syringe IV PUSH PRN PRN Hypoglycemia Protocol Glucagon 1 mg 06/03/24 13:46 Glucagon For Inj 1 Mg Vial IM PRN PRN Hypoglycemia Protocol Glucose 15 gm 06/03/24 13:46 Glucose Oral Gel 15 Gm Of Glucse In 37.5 Gm Tube PO PRN PRN Hypoglycemia Protocol Heparin Sodium (Porcine) 6,000 units 06/03/24 12:33 06/04/24 23:06 Heparin Sodium 5,000 Units/Ml Vial IV PUSH 6,000 units PRN PRN Administration aPTT less than 55 seconds Heparin Sodium (Porcine) 3,000 units 06/03/24 12:33 06/06/24 05:43 Heparin Sodium 5,000 Units/Ml Vial IV PUSH 3,000 units PRN PRN Administration aPTT 55 - 70 seconds Hydrocortisone Sodium Succinate 100 mg 06/03/24 22:00 06/06/24 05:29 Hydrocortisone Sodium Succinate 100 Mg/2 Ml Vial IV PUSH 100 mg Q8HR ARABELLA Administration Heparin Sodium/Dextrose 25,000 units in 250 mls @ 26 mls/hr 06/03/24 12:35 06/06/24 10:43 Heparin Sodium/D5w 100 Units/Ml IV CONT 2,600 units/hr .[id number] ARABELLA 26 mls/hr Administration Protocol 2,600 UNITS/HR Dextrose 1,000 mls @ 100 mls/hr 06/03/24 13:46 Dextrose 5% 1,000 Ml IVPB PRN PRN Hypoglycemia Protocol Fentanyl Citrate 2,500 mcg in 250 mls @ 17.5 mls/hr 06/03/24 13:50 06/06/24 10:00 Fentanyl 2,500 Mcg/Ns 250 Ml IV CONT 175 mcg/hr .[id number] ARABELLA 17.5 mls/hr Titration Protocol 175 MCG/HR Midazolam HCl 100 mg in 100 mls @ 4 mls/hr 06/03/24 13:50 06/06/24 10:00 Versed 100 Mg/Ns 100 Ml IV CONT 4 mg/hr .Q25H ARABELLA 4 mls/hr Titration Protocol 4 MG/HR Doxycycline Hyclate 100 mg in 100 mls @ 100 mls/hr 06/03/24 16:00 06/06/24 04:02 Vibramycin 100 Mg/Ns 100 Ml IVPB 06/08/24 15:59 Infused Q12H ARABELLA Infusion Cisatracurium Besylate 200 mg/ 100 mls @ 5.483 mls/hr 06/03/24 17:45 06/06/24 10:00 Dextrose IV CONT 2.5 mcg/kg/min .[id number] ARABELLA 5.48 mls/hr Titration Protocol 2.5 MCG/KG/MIN Norepinephrine Bitartrate 8 mg in 250 mls @ 0 mls/hr 06/03/24 17:50 06/06/24 10:00 Levophed 8 Mg/D5w 250 Ml IV CONT 0 mcg/min .Q0M ARABELLA 0 mls/hr Titration Protocol 0 MCG/MIN Cefepime HCl 2 gm in 50 mls @ 100 mls/hr 06/04/24 15:00 06/06/24 03:32 Maxipime 2 Gm/Ns 50 Ml IVPB Infused Q12H ARABELLA Infusion Insulin Aspart 3 - 6 units 06/03/24 18:00 06/06/24 11:52 Insulin Aspart (*Bkc) 100 Units/Ml SUB-Q Not Given Q6HR [facility] Protocol Metoclopramide HCl 10 mg 06/06/24 12:00 06/06/24 11:46 Metoclopramide Hcl Inj 10 Mg/2 Ml Vial IV PUSH 06/07/24 06:01 10 mg Q6HR ARABELLA Administration Midazolam HCl 2 mg 06/03/24 13:48 06/03/24 16:40 Midazolam Hcl (*Crx) 2 Mg/2 Ml Vial IV PUSH 2 mg Q5M PRN Administration ventilator asynchrony Miscellaneous Information 1 each 06/06/24 00:01 Nimbex Needs To Be Renewed Or It Will Automatically Discontinue. XX 07/06/24 00:00 [facility] Miscellaneous Information 1 each 06/05/24 22:55 Mix Ivs In Ns If Possible XX 06/05/24 22:56 ONCE ONE Multi-Ingred Cream/Lotion/Oil/Oint 1 applic 06/03/24 14:00 06/06/24 09:01 Mineral Oil/White Petrolatum Ointment EACH EYE 1 applic Q12HR ARABELLA Administration Oseltamivir Phosphate 30 mg 06/04/24 09:00 06/06/24 09:01 Oseltamivir Phosphate Oral Susp 30 Mg/5 Ml Syringe FEED TUBE 06/09/24 08:59 30 mg Q12HR ARABELLA Administration Pantoprazole Sodium 40 mg 06/04/24 09:00 06/06/24 09:00 Pantoprazole Sodium Iv 40 Mg Vial IV PUSH 40 mg QAM ARABELLA Administration Perflutren Lipid Microsphere 0 ml 06/03/24 13:51 Perflutren Lipid Microspheres 1.5 Ml Vial Diluted To 10 Ml Total Volume IV PUSH 06/06/24 13:52 ONCE PRN adequate visualization Protocol Sodium Chloride 10 ml 06/03/24 22:00 06/06/24 05:29 Central Line Flush IV PUSH 10 ml Q8HR ARABELLA Administration Sodium Chloride 20 ml 06/03/24 19:36 Central Line Flush IV PUSH PRN PRN after blood draws Radiology Results: ITS Impressions Chest/Abdomen/Pelvis CT 06/03/24 17:44 IMPRESSION: Dense bilateral pulmonary infiltrates. Loculated dense effusion within the left upper lobe, similar to what one might see with an adjacent fracture. Although, significant respiratory artifact renders this evaluation limited. Perhaps once adequate resuscitation has been performed and lung findings are improving repeat imaging may be attempted with intravenous contrast, in order to evaluate for the presence or absence of acute traumatic injury. Hepatosplenomegaly. Free fluid within the deep pelvis, never a normal finding in a male patient. Abdomen Ultrasound 06/05/24 08:52 IMPRESSION: 1. Small volume of ascites. Chest X-Ray 06/06/24 06:18 Impression: Multifocal bilateral pneumonia, unchanged. Stable support tubes. Labs Labs: Laboratory Results - last 24 hr 06/03/24 06/05/24 06/05/24 22:09 03:25 05:15 WBC RBC Hgb Hct MCV MCH MCHC RDW Plt Count MPV Immature Gran % (Auto) Neut % (Auto) Lymph % (Auto) Luce % (Auto) Eos % (Auto) Baso % (Auto) Lymph # (Auto) Luce # (Auto) Eos # (Auto) Baso # (Auto) Abs Immat Gran (auto) Absolute Neuts (auto) Absolute Nucleated RBC Total Counted Neutrophils % (Manual) Band Neutrophils % Lymphocytes % (Manual) Monocytes % (Manual) Nucleated RBC % Abs Neuts (Manual) Abs Lymphs (Manual) Abs Monocytes (Manual) Platelet Estimate Poikilocytosis Ovalocytes Schistocytes APTT Puncture Site ABG pH ABG pCO2 ABG pO2 ABG PO2/FiO2 Ratio ABG HCO3 ABG O2 Saturation ABG O2 Content ABG Base Excess A-a Gradient Oxyhemoglobin Carboxyhemoglobin Methemoglobin Reduced Hemoglobin Total Hemoglobin O2 Delivery Device O2 Liters/Min Minute Volume Vent Rate Vent Mode FiO2 Tidal Volume PEEP Peak Inspir Pressure Pressure Support Sodium Potassium Chloride Carbon Dioxide Anion Gap BUN Creatinine Estim Creat Clear Calc Estimated GFR Glucose POC Capillary Glucose Calcium Phosphorus Magnesium Total Bilirubin AST ALT Alkaline Phosphatase Total Protein 4.9 L Albumin Triglycerides Urine Osmolality 387 Ur Random Creatinine 96 U Random Total Protein 121 H Protein/Creatinin Ratio 1260 H Vancomycin Trough 06/05/24 06/05/24 06/05/24 11:50 11:56 14:05 WBC RBC Hgb Hct MCV MCH MCHC RDW Plt Count MPV Immature Gran % (Auto) Neut % (Auto) Lymph % (Auto) Luce % (Auto) Eos % (Auto) Baso % (Auto) Lymph # (Auto) Luce # (Auto) Eos # (Auto) Baso # (Auto) Abs Immat Gran (auto) Absolute Neuts (auto) Absolute Nucleated RBC Total Counted Neutrophils % (Manual) Band Neutrophils % Lymphocytes % (Manual) Monocytes % (Manual) Nucleated RBC % Abs Neuts (Manual) Abs Lymphs (Manual) Abs Monocytes (Manual) Platelet Estimate Poikilocytosis Ovalocytes Schistocytes APTT 71.4 H Puncture Site ABG pH ABG pCO2 ABG pO2 ABG PO2/FiO2 Ratio ABG HCO3 ABG O2 Saturation ABG O2 Content ABG Base Excess A-a Gradient Oxyhemoglobin Carboxyhemoglobin Methemoglobin Reduced Hemoglobin Total Hemoglobin O2 Delivery Device O2 Liters/Min Minute Volume Vent Rate Vent Mode FiO2 Tidal Volume PEEP Peak Inspir Pressure Pressure Support Sodium Potassium Chloride Carbon Dioxide Anion Gap BUN Creatinine Estim Creat Clear Calc Estimated GFR Glucose POC Capillary Glucose 151 H Calcium Phosphorus Magnesium Total Bilirubin AST ALT Alkaline Phosphatase Total Protein Albumin Triglycerides 68 Urine Osmolality Ur Random Creatinine U Random Total Protein Protein/Creatinin Ratio Vancomycin Trough 8.5 L 06/05/24 06/05/24 06/06/24 18:09 18:58 00:14 WBC RBC Hgb Hct MCV MCH MCHC RDW Plt Count MPV Immature Gran % (Auto) Neut % (Auto) Lymph % (Auto) Luce % (Auto) Eos % (Auto) Baso % (Auto) Lymph # (Auto) Luce # (Auto) Eos # (Auto) Baso # (Auto) Abs Immat Gran (auto) Absolute Neuts (auto) Absolute Nucleated RBC Total Counted Neutrophils % (Manual) Band Neutrophils % Lymphocytes % (Manual) Monocytes % (Manual) Nucleated RBC % Abs Neuts (Manual) Abs Lymphs (Manual) Abs Monocytes (Manual) Platelet Estimate Poikilocytosis Ovalocytes Schistocytes APTT 74.9 H Puncture Site ABG pH ABG pCO2 ABG pO2 ABG PO2/FiO2 Ratio ABG HCO3 ABG O2 Saturation ABG O2 Content ABG Base Excess A-a Gradient Oxyhemoglobin Carboxyhemoglobin Methemoglobin Reduced Hemoglobin Total Hemoglobin O2 Delivery Device O2 Liters/Min Minute Volume Vent Rate Vent Mode FiO2 Tidal Volume PEEP Peak Inspir Pressure Pressure Support Sodium Potassium Chloride Carbon Dioxide Anion Gap BUN Creatinine Estim Creat Clear Calc Estimated GFR Glucose POC Capillary Glucose 151 H 152 H Calcium Phosphorus Magnesium Total Bilirubin AST ALT Alkaline Phosphatase Total Protein Albumin Triglycerides Urine Osmolality Ur Random Creatinine U Random Total Protein Protein/Creatinin Ratio Vancomycin Trough 06/06/24 06/06/24 06/06/24 04:44 04:50 11:50 WBC 19.0 H RBC 2.78 L Hgb 8.6 L Hct 25.0 L MCV 89.9 MCH 30.9 MCHC 34.4 RDW 13.2 Plt Count 196 MPV 9.4 Immature Gran % (Auto) Not Reportable Neut % (Auto) Not Reportable Lymph % (Auto) Not Reportable Luce % (Auto) Not Reportable Eos % (Auto) Not Reportable Baso % (Auto) Not Reportable Lymph # (Auto) Not Reportable Luce # (Auto) Not Reportable Eos # (Auto) Not Reportable Baso # (Auto) Not Reportable Abs Immat Gran (auto) Not Reportable Absolute Neuts (auto) Not Reportable Absolute Nucleated RBC Not Reportable Total Counted 100 Neutrophils % (Manual) 88 H Band Neutrophils % 7 H Lymphocytes % (Manual) 3 L Monocytes % (Manual) 2 L Nucleated RBC % Not Reportable Abs Neuts (Manual) 18.05 H Abs Lymphs (Manual) 0.57 L Abs Monocytes (Manual) 0.38 Platelet Estimate Adequate Poikilocytosis 1+ Ovalocytes 1+ Schistocytes None seen APTT 62.5 H Puncture Site Left radial ABG pH 7.262 L* ABG pCO2 64.1 H* ABG pO2 101.8 H ABG PO2/FiO2 Ratio 2.55 ABG HCO3 28.2 H ABG O2 Saturation 96.6 ABG O2 Content 14.6 L ABG Base Excess 0.3 A-a Gradient 109.7 Oxyhemoglobin 97.0 Carboxyhemoglobin 0.3 Methemoglobin 0.1 Reduced Hemoglobin 2.6 Total Hemoglobin 10.6 L O2 Delivery Device Ventilator O2 Liters/Min Not Reportable Minute Volume Not Reportable Vent Rate 28 Vent Mode Cmv FiO2 40 Tidal Volume 400 PEEP 12 Peak Inspir Pressure Not Reportable Pressure Support Not Reportable Sodium 123 L Potassium 3.7 Chloride 85 L Carbon Dioxide 29 Anion Gap 9 BUN 74 H D Creatinine 1.74 H Estim Creat Clear Calc 44 Estimated GFR 42 L Glucose 166 H POC Capillary Glucose 168 H Calcium 7.9 L Phosphorus 4.3 Magnesium 2.7 H Total Bilirubin 0.5 AST 257 H ALT 81 H Alkaline Phosphatase 56 Total Protein 5.0 L Albumin 2.4 L Triglycerides Urine Osmolality Ur Random Creatinine U Random Total Protein Protein/Creatinin Ratio Vancomycin Trough
[2024-06-06 12:13] LABS: Partial Thromboplastin Time 71.7 Seconds (22.3-36.8)
[2024-06-06] MEDS: MIDAZOLAM 100MG/NS 100ML(*CRX) 100 MG/100 ML BAG IV CONT (15:02)
[2024-06-06] MEDS: CISATRACURIUM BESYLATE 200 MG in DEXTROSE 5% 80 ML IV CONT (15:04)
[2024-06-06 17:42] LABS: Glucose Point of Care 173 mg/dl (65-105)
[2024-06-06 19:19] LABS: Partial Thromboplastin Time 71.6 Seconds (22.3-36.8)
[2024-06-06 20:58] LABS: Legionella pneumophila Ag Ur NOT DETECTED
[2024-06-06 21:53] LABS: Albumin 1.8 g/dL (3.8-4.8); Alpha 1 Globulin A1G = 1.0 g/dL H g/dL (0.2-0.3); Alpha 2 Globulin 1.1 g/dL (0.5-0.9); Beta 1 Globulin 0.3 g/dL (0.4-0.6); Gamma Globulin 0.4 g/dL (0.8-1.7)
[2024-06-06 21:53] LABS: Pneumococcal Antigen Urine DETECTED
[2024-06-06 23:20] LABS: Glucose Point of Care 193 mg/dl (65-105)
[2024-06-07] VITALS (35 sets, daily range): BP systolic 110–130; BP diastolic 55–70; PULSE 74–97; RESP 22–32; TEMP 36.3–37.1; O2SAT 92–100
[2024-06-07] MEDS: IPRATROPIUM 0.5 MG/ALBUTEROL SULFATE 2.5 MG AMPUL.NEB 3 ML INHALATION ×4 (02:08→20:52)
[2024-06-07] MEDS: DOXYCYCLINE 100 MG/NS 100 ML 100 MG/100 ML BAG IVPB ×2 (03:57→16:29)
[2024-06-07] MEDS: CEFEPIME 2 GM/NS 50 ML 2 GM/50 ML BAG IVPB ×2 (03:58→15:08)
[2024-06-07 05:05] LABS: Hematocrit 25.2 % (42.0-52.0); Hemoglobin 8.8 g/dL (14.0-18.0); Mean Corpuscular HGB Conc 34.9 g/dl (32-36); Mean Corpuscular Hemoglobin 31.1 pg (26-34); Mean Platelet Volume 9.2 fl (7.4-10.4); Platelet Count Result 208 k/mm3 (150-375); Red Blood Count 2.83 M/mm3 (4.6-6.20); Red Cell Distribution Width 13.4 % (11.5-14.5); White Blood Count 17.9 K/mm3 (4.5-10.0)
[2024-06-07 05:12] LABS: Alveolar/Arterial O2 Gradient 130.5 mmHg; Base Excess ABG 3.3 mEq/l (+/-2.0); Carboxyhemoglobin 0.3 % THb (0-2.0); Fractional Inspired Oxygen 40 %; HCO3 ABG 29.4 mEq/l (22.0-26.0); Methemoglobin ABG 0.1 %THb (0-1.5); Oxygen Content ABG 13.6 %vol (16.0-22.0); Oxygen Saturation ABG 96.8 % (95.0-100.0); Oxyhemoglobin 96.6 % THb (90.0-100.0); PCO2 ABG 53.2 mmHg (35.0-45.0); PO2 ABG 93.5 mmHg (80.0-100.0); PO2 FiO2 Ratio Arterial Blood 2.34 %; Total Hemoglobin 9.9 g/dL (12.0-18.0); pH ABG 7.361 (7.350-7.450)
[2024-06-07 05:13] LABS: Arterial Blood Gas PEEP 10 cmH2O; Arterial Blood Gas Tidal Volume 450 ml; Arterial Blood Gas Vent Mode CMV; Arterial Blood Gas Ventilator rate 28 /MIN; Device VENTILATOR; Modified Allen's Test Pass; Site Drawn RIGHT RADIAL
[2024-06-07 05:16] LABS: Alanine Aminotransferase 61 U/L (6-50); Albumin Level 2.5 g/dL (3.5-5.1); Alkaline Phosphatase 66 U/L (38-126); Anion Gap 6 mmol/L (4-12); Aspartate Amino Transferase 172 U/L (17-59); Bilirubin,Total 0.5 mg/dL (0.2-1.3); Blood Urea Nitrogen 82 mg/dL (9-20); Calcium 8.3 mg/dL (8.4-10.2); Carbon Dioxide 32 mmol/L (22-30); Chloride 94 mmol/L (98-107); Estimated CRCL calculation 50 ml/min; Estimated Glomerular Filt Rate 49; Glucose 183 mg/dL (65-110); Magnesium 3.2 mg/dL (1.6-2.3); Phosphorus 3.2 mg/dL (2.5-4.5); Potassium 3.7 mmol/L (3.4-5.0); Sodium 132 mmol/L (137-145); Triglycerides 140 mg/dL (<150)
[2024-06-07 05:30] LABS: Band Neutrophils Percent 15 % (0-6); Lymphocytes Absolute Manual 0.71 K/mm3 (1.1-4.5); Monocytes Absolute Manual 0.17 K/mm3 (0.1-0.90); Monocytes Percent Manual 1 % (3-9); Neutrophils Percent Manual 80 % (46-73); Platelet Estimate Adequate (Adequate); Schistocytes None Seen; Total Cells Counted 100
[2024-06-07 05:44] LABS: Partial Thromboplastin Time 117.5 Seconds (22.3-36.8)
[2024-06-07] MEDS: HEPARIN SOD/D5W 100 UNITS/ML 25,000 UNITS/250 ML BAG 25 UNITS IV CONT ×2 (05:59→16:28)
[2024-06-07] MEDS: METOCLOPRAMIDE HCL INJ 10 MG/2 ML VIAL IV PUSH ×4 (06:04→23:10)
[2024-06-07] MEDS: HYDROCORTISONE SODIUM SUCCINATE 100 MG/2 ML VIAL IV PUSH ×3 (06:04→20:05)
[2024-06-07] MEDS: CENTRAL LINE FLUSH 10 ML IV PUSH ×3 (06:05→20:06)
[2024-06-07] MEDS: DEXTROSE 5% IN WATER 500 ML 250 ML IV CONT ×2 (06:10→12:05)
[2024-06-07] MEDS: OSELTAMIVIR PHOSPHATE ORAL SUSP 30 MG/5 ML SYRINGE FEED TUBE ×2 (08:50→20:05)
[2024-06-07] MEDS: PANTOPRAZOLE SODIUM IV 40 MG VIAL IV PUSH (08:50)
[2024-06-07] MEDS: AMIODARONE HCL 200 MG TABLET 400 MG PO ×2 (08:50→20:05)
[2024-06-07] MEDS: MIDAZOLAM 100MG/NS 100ML(*CRX) 100 MG/100 ML BAG 6 MG IV CONT (08:51)
[2024-06-07] MEDS: MINERAL OIL/WHITE PETROLATUM OINTMENT 1 APPLIC EACH EYE ×2 (08:53→20:05)
[2024-06-07 09:17] LABS: Sodium 134 mmol/L (137-145)
--- NOTE | 2024-06-07 09:55 | WPDINTPN ---
Progress Note: A&P Assessment and Plan (1) Acute respiratory failure: Code(s): J96.00 - Acute respiratory failure, unspecified whether with hypoxia or hypercapnia Status: Acute Assessment and Plan: Acute respiratory failure secondary to pneumonia -06/03: intubated in the ER -patient remains on CMV mode of ventilation, peep of 12 and 50% FiO2 this morning -06/03: Patient was proned for approximately 20 hours - chest x-ray this morning: Multifocal bilateral pneumonia, unchanged. -influenza A positive -negative for COVID, RSV -urine Legionella negative -urine pneumococcal antigen positive -mycoplasma pneumonia pending -continue bronchodilators -sedated with fentanyl, Versed. Off Nimbex since 06/06. Will start weaning sedation to evaluate neurological status 06/03/2024: CT chest, abdomen, pelvis IMPRESSION: Dense bilateral pulmonary infiltrates. Loculated dense effusion within the left upper lobe, similar to what one might see with an adjacent fracture. Although, significant respiratory artifact renders this evaluation limited. Perhaps once adequate resuscitation has been performed and lung findings are improving repeat imaging may be attempted with intravenous contrast, in order to evaluate for the presence or absence of acute traumatic injury. Hepatosplenomegaly. Free fluid within the deep pelvis, never a normal finding in a male patient. (2) Septic shock: Code(s): A41.9 - Sepsis, unspecified organism; R65.21 - Severe sepsis with septic shock Status: Acute Assessment and Plan: Patient with hypotension, refractory to IV fluids, -etiology likely related to pneumonia, UA was unremarkable -patient received adequate amount of IV fluids -06/03: blood cultures growing -Streptococcus pneumonia 2/2 bottles -lactic acid has normalized -continue cefepime and doxycycline (06/03) -06/06: Will discontinue vancomycin since as strep pneumo was pansensitive -currently OFF Levophed and vasopressin -Continue to maintain MAP > 65 mm Hg or SBP > 100 mm Hg -continue stress dose steroids (06/03) -06/06: Repeat blood cultures (3) Pneumonia: Code(s): J18.9 - Pneumonia, unspecified organism Status: Acute Assessment and Plan: See above (4) Hyponatremia: Code(s): E87.1 - Hypo-osmolality and hyponatremia Status: Acute Assessment and Plan: Hyponatremia with sodium levels of 117 on admission Etiology is not clear at this point in this could be secondary to excessive water intake. This could also be secondary to SIADH, congestive heart failure, SSRI, increased water intake -patient received adequate IV fluids -could will discontinue maintenance IV fluids, discussed with Nephrology -nephrology following the patient and appreciate the evaluation and recommendations -continue to monitor sodium levels (5) SABA (acute kidney injury): Code(s): N17.9 - Acute kidney failure, unspecified Status: Acute Assessment and Plan: Baseline creatinine unknown Presented with creatinine of 1.5 for which could be secondary to sepsis and hypovolemia Status post IV fluids Appreciate nephrology following the patient 06/03: CTA chest abdomen pelvis did not show any hydronephrosis renal calculi Jimenez in place, urine output has been low Urine lytes reflective of prerenal picture, patient has had adequate IV fluids, now in ARDS, -continue to monitor urine output, electrolytes and renal function -06/07: Significant urine output yesterday and overnight (6) Atrial fibrillation with RVR: Code(s): I48.91 - Unspecified atrial fibrillation Status: Acute Assessment and Plan: Status post DC cardioversion in ER. Currently on heparin infusion. -appreciate cardiology evaluation and recommendations -patient received amiodarone bolus x2, now on amiodarone at 0.5 mg/min -off pressors -will switch amiodarone infusion to p.o. amiodarone per Cardiology recommendations 06/05/2024: Echocardiogram Summary 1. Left ventricular chamber dimension is normal. 2. Left ventricular systolic function is moderately reduced, estimated at 30-35%. 3. There is mildly increased left ventricular wall thickness. 4. The left ventricular diastolic function is grade I diastolic dysfunction. 5. Right ventricular systolic function is normal. 6. There is mild mitral valve regurgitation. 7. There is mild tricuspid valve regurgitation. 8. Estimated pulmonary arterial systolic pressure is 34 mmHg. (7) Elevated brain natriuretic peptide (BNP) level: Code(s): R79.89 - Other specified abnormal findings of blood chemistry Status: Acute Assessment and Plan: Patient has elevated BNP of 4190, although no evidence of volume overload from exam CT chest showed multifocal pneumonia Echocardiogram was above Cautious IV fluid (8) Hypertension: Code(s): I10 - Essential (primary) hypertension Status: Acute Assessment and Plan: Hold all antihypertensives as patient chest came of pressors (9) Influenza A: Code(s): J10.1 - Influenza due to other identified influenza virus with other respiratory manifestations Status: Acute Assessment and Plan: Patient was tested positive for influenza A, on Tamiflu (10) Schizophrenia: Code(s): F20.9 - Schizophrenia, unspecified Status: Acute Assessment and Plan: History of schizophrenia and other behavior issues Unknown if he takes any medications Plan DVT prophylaxis -heparin infusion for AFib RVR Stress ulcer prophylaxis -Protonix Nutrition: Trickle tube feeds, will increase as tolerated Code Status -DNR Total Critical Care Time - 34 minutes Discussed with patient's father and brother updated with his condition and plan of care. I answered all questions Due to a high probability of clinically significant, life threatening deterioration, the patient required my highest level of preparedness to intervene emergently and I personally spent this critical care time directly and personally managing the patient. This critical care time included obtaining a history; examining the patient; pulse oximetry; ordering and review of studies; arranging urgent treatment with development of a management plan; evaluation of patient's response to treatment; frequent reassessment; and discussions with other providers. It was exclusive of separately billable procedures and treating other patients and teaching time. Please see Assessment and Plan section and the rest of the note for further information on patient assessment and treatment This dictation may have been done utilizing a voice recognition system. Attempts have been made to correct errors. However, there may be uncorrected grammatical, spelling, and recognitions errors present. Subjective Date/time seen: 06/07/24 09:55 Interval history: Reason for consult: Acute respiratory failure, pneumonia, bacteremia, acute kidney injury, hyponatremia, AFib RVR status post DC cardioversion 06/07/2024: Patient seen examined the ICU, remains intubated on CMV mode of ventilation, peep of 10 and 40% FiO2. Sedated with fentanyl and Versed, Nimbex was discontinued yesterday. Patient remains off vasopressors. Significant urine output with negative 2143 mL in the last 24 hours. Remains on tube feeds at 20 mL/hour and tolerating LFTs in WBC count trending down -patient does not open his eyes or follows commands Review of Systems Review of Systems: ROS unobtainable: Yes unobtainable due to medical condition and unobtainable due to mental status Exam Narrative: General: Intubated, sedated, in no acute distress HEENT: Pupils equal and reactive, sclera is clear Lungs/Chest: Coarse breath sounds bilaterally right worse than left, bilateral rales, decreased breath sounds at bases, otherwise adequate air entry, ETT in place Cardiac: Irregularly irregular, normal rate Circulation: Pedal pulses are intact and symmetrical. Abdomen: Soft, nontender, nondistended, hypoactive bowel sounds Extremities: 1+ edema bilateral lower extremities : Jimenez in place Neurologic: Intubated, sedated, does not open his eyes or follows simple commands Skin: No skin lesions or rash noted Objective Data Vital Signs Vital Signs: Vital Signs - 24 hr 06/06/24 10:00 06/06/24 10:00 06/06/24 10:00 Temperature Pulse Rate 95 95 95 Respiratory Rate 28 H 28 H Blood Pressure 115/65 115/65 Pulse Oximetry Oxygen Delivery Fraction of Inspired Oxygen 06/06/24 10:00 06/06/24 10:00 06/06/24 10:00 Temperature Pulse Rate 95 95 95 Respiratory Rate 28 H Blood Pressure 115/65 Pulse Oximetry Oxygen Delivery Fraction of Inspired Oxygen 06/06/24 10:00 06/06/24 10:44 06/06/24 11:37 Temperature 100.3 F H Pulse Rate 98 92 82 Respiratory Rate 26 H Blood Pressure 147/70 H Pulse Oximetry 99 97 Oxygen Delivery Mechanical Ventilation Fraction of Inspired Oxygen 40 06/06/24 11:41 06/06/24 12:00 06/06/24 12:00 Temperature Pulse Rate 95 79 79 Respiratory Rate 28 H 28 H Blood Pressure 115/65 93/52 L Pulse Oximetry Oxygen Delivery Fraction of Inspired Oxygen 06/06/24 12:00 06/06/24 12:00 06/06/24 12:00 Temperature Pulse Rate 79 79 84 Respiratory Rate 28 H Blood Pressure 93/52 L Pulse Oximetry Oxygen Delivery Fraction of Inspired Oxygen 06/06/24 12:00 06/06/24 12:00 06/06/24 13:44 Temperature 98.2 F Pulse Rate 87 79 Respiratory Rate 28 H Blood Pressure 102/60 Pulse Oximetry 97 98 Oxygen Delivery Mechanical Ventilation Fraction of Inspired Oxygen 40 40 06/06/24 13:44 06/06/24 13:55 06/06/24 14:00 Temperature Pulse Rate 79 74 81 Respiratory Rate 28 H 28 H 28 H Blood Pressure 105/58 L Pulse Oximetry Oxygen Delivery Fraction of Inspired Oxygen 06/06/24 14:00 06/06/24 14:00 06/06/24 14:00 Temperature Pulse Rate 81 81 81 Respiratory Rate 28 H 28 H Blood Pressure 105/58 L Pulse Oximetry Oxygen Delivery Fraction of Inspired Oxygen 06/06/24 14:00 06/06/24 14:00 06/06/24 14:00 Temperature 98 F 98.0 F Pulse Rate 83 81 81 Respiratory Rate 28 H 28 H Blood Pressure 105/58 L 105/58 L Pulse Oximetry 98 98 Oxygen Delivery Fraction of Inspired Oxygen 06/06/24 14:53 06/06/24 15:02 06/06/24 15:02 Temperature Pulse Rate 105 H 111 H 111 H Respiratory Rate 28 H 28 H 28 H Blood Pressure 114/71 Pulse Oximetry Oxygen Delivery Fraction of Inspired Oxygen 06/06/24 15:04 06/06/24 15:33 06/06/24 16:00 Temperature Pulse Rate 111 H 99 83 Respiratory Rate 28 H 28 H Blood Pressure 114/71 Pulse Oximetry Oxygen Delivery Fraction of Inspired Oxygen 06/06/24 16:00 06/06/24 16:00 06/06/24 16:00 Temperature Pulse Rate 82 85 Respiratory Rate 28 H Blood Pressure 114/74 Pulse Oximetry Oxygen Delivery Fraction of Inspired Oxygen 40 06/06/24 16:00 06/06/24 16:00 06/06/24 16:00 Temperature 97.7 F Pulse Rate 85 85 85 Respiratory Rate 28 H 28 H 28 H Blood Pressure 114/74 114/74 Pulse Oximetry 94 Oxygen Delivery Fraction of Inspired Oxygen 06/06/24 16:28 06/06/24 16:56 06/06/24 17:29 Temperature Pulse Rate 83 83 84 Respiratory Rate 28 H 28 H Blood Pressure 118/69 112/70 Pulse Oximetry 95 Oxygen Delivery Mechanical Ventilation Fraction of Inspired Oxygen 40 06/06/24 17:43 06/06/24 18:00 06/06/24 18:00 Temperature 98.2 F Pulse Rate 85 84 84 Respiratory Rate 28 H Blood Pressure 112/70 107/62 Pulse Oximetry 96 Oxygen Delivery Fraction of Inspired Oxygen 06/06/24 18:00 06/06/24 18:00 06/06/24 18:40 Temperature Pulse Rate 84 84 80 Respiratory Rate 28 H 28 H 26 H Blood Pressure 107/59 L Pulse Oximetry Oxygen Delivery Fraction of Inspired Oxygen 06/06/24 19:38 06/06/24 19:38 06/06/24 19:45 Temperature Pulse Rate 96 96 103 H Respiratory Rate 28 H 32 H Blood Pressure Pulse Oximetry 93 Oxygen Delivery Mechanical Ventilation Fraction of Inspired Oxygen 40 06/06/24 19:57 06/06/24 20:00 06/06/24 20:00 Temperature 98.2 F Pulse Rate 88 93 Respiratory Rate 28 H 28 H Blood Pressure 119/66 Pulse Oximetry 93 Oxygen Delivery Fraction of Inspired Oxygen 40 06/06/24 20:00 06/06/24 20:00 06/06/24 20:00 Temperature Pulse Rate 93 87 87 Respiratory Rate 28 H 28 H Blood Pressure Pulse Oximetry 93 Oxygen Delivery Mechanical Ventilation Fraction of Inspired Oxygen 40 06/06/24 20:32 06/06/24 22:00 06/06/24 22:00 Temperature 98.4 F Pulse Rate 89 86 86 Respiratory Rate 28 H Blood Pressure 114/68 Pulse Oximetry 96 Oxygen Delivery Fraction of Inspired Oxygen 06/06/24 22:00 06/06/24 22:00 06/06/24 22:48 Temperature Pulse Rate 86 86 83 Respiratory Rate 28 H 28 H Blood Pressure Pulse Oximetry 96 Oxygen Delivery Mechanical Ventilation Fraction of Inspired Oxygen 40 06/06/24 23:04 06/06/24 23:04 06/07/24 00:00 Temperature Pulse Rate 84 84 82 Respiratory Rate 28 H 28 H 28 H Blood Pressure Pulse Oximetry Oxygen Delivery Fraction of Inspired Oxygen 06/07/24 00:00 06/07/24 00:00 06/07/24 00:00 Temperature 98.2 F Pulse Rate 82 82 82 Respiratory Rate 28 H 28 H Blood Pressure 110/58 L Pulse Oximetry 96 Oxygen Delivery Fraction of Inspired Oxygen 06/07/24 00:00 06/07/24 00:20 06/07/24 02:00 Temperature Pulse Rate 82 79 Respiratory Rate 28 H Blood Pressure Pulse Oximetry 96 Oxygen Delivery Mechanical Ventilation Fraction of Inspired Oxygen 40 40 06/07/24 02:00 06/07/24 02:00 06/07/24 02:00 Temperature 98.1 F Pulse Rate 76 76 76 Respiratory Rate 28 H 28 H 28 H Blood Pressure 113/65 Pulse Oximetry 96 Oxygen Delivery Fraction of Inspired Oxygen 06/07/24 02:08 06/07/24 02:08 06/07/24 02:20 Temperature Pulse Rate 77 77 79 Respiratory Rate 28 H 28 H Blood Pressure Pulse Oximetry 96 Oxygen Delivery Mechanical Ventilation Fraction of Inspired Oxygen 40 06/07/24 03:48 06/07/24 03:52 06/07/24 04:00 Temperature 98.1 F Pulse Rate 79 80 Respiratory Rate 28 H 28 H Blood Pressure 118/68 Pulse Oximetry 96 97 Oxygen Delivery Mechanical Ventilation Fraction of Inspired Oxygen 40 40 06/07/24 04:00 06/07/24 04:00 06/07/24 04:00 Temperature Pulse Rate 82 74 74 Respiratory Rate 28 H 28 H Blood Pressure Pulse Oximetry Oxygen Delivery Fraction of Inspired Oxygen 06/07/24 05:08 06/07/24 06:00 06/07/24 06:00 Temperature Pulse Rate 90 81 82 Respiratory Rate 28 H 28 H Blood Pressure Pulse Oximetry 95 Oxygen Delivery Mechanical Ventilation Fraction of Inspired Oxygen 40 06/07/24 06:00 06/07/24 06:00 06/07/24 08:28 Temperature 97.4 F L Pulse Rate 82 82 86 Respiratory Rate 28 H 28 H Blood Pressure 114/57 L Pulse Oximetry 97 Oxygen Delivery Fraction of Inspired Oxygen 06/07/24 08:33 06/07/24 08:35 06/07/24 08:38 Temperature Pulse Rate 88 91 89 Respiratory Rate 28 H 28 H Blood Pressure Pulse Oximetry 95 Oxygen Delivery Mechanical Ventilation Fraction of Inspired Oxygen 40 06/07/24 08:51 Temperature Pulse Rate 88 Respiratory Rate 28 H Blood Pressure Pulse Oximetry Oxygen Delivery Fraction of Inspired Oxygen Intake/Output Intake/Output: Intake & Output 06/04/24 06/05/24 06/06/24 06/07/24 23:59 23:59 23:59 23:59 Intake Total 5338.0 3171.1 2863.9 942.4 Output Total 1375 1075 2575 2300 Balance 3963.0 2096.1 288.9 -1357.6 Meds/Results Medications: Active Medications Generic Name Dose Route Start Last Admin Trade Name Freq PRN Reason Stop Dose Admin Acetaminophen 650 mg 06/03/24 13:56 Acetaminophen Elixir 325 Mg/10.15 Ml Udc FEED TUBE Q4H PRN Fever Albuterol/Ipratropium 3 ml 06/03/24 13:50 Ipratropium 0.5 Mg/Albuterol Sulfate 2.5 Mg Ampul.Neb 3 Ml INHALATION Q6HRT PRN Wheezng Albuterol/Ipratropium 3 ml 06/03/24 20:00 06/07/24 08:28 Ipratropium 0.5 Mg/Albuterol Sulfate 2.5 Mg Ampul.Neb 3 Ml INHALATION 3 ml Q6HRT ARABELLA Administration Amiodarone HCl 400 mg 06/06/24 09:40 06/07/24 08:50 Amiodarone Hcl 200 Mg Tablet PO 06/13/24 09:39 400 mg Q12HR ARABELLA Administration Amiodarone HCl 200 mg 06/14/24 08:00 Amiodarone Hcl 200 Mg Tablet PO DAILY@0800 ARABELLA Dextrose 12.5 gm 06/03/24 13:46 Dextrose 50% 25 Gm/50 Ml Syringe IV PUSH PRN PRN Hypoglycemia Protocol Glucagon 1 mg 06/03/24 13:46 Glucagon For Inj 1 Mg Vial IM PRN PRN Hypoglycemia Protocol Glucose 15 gm 06/03/24 13:46 Glucose Oral Gel 15 Gm Of Glucse In 37.5 Gm Tube PO PRN PRN Hypoglycemia Protocol Heparin Sodium (Porcine) 6,000 units 06/03/24 12:33 06/04/24 23:06 Heparin Sodium 5,000 Units/Ml Vial IV PUSH 6,000 units PRN PRN Administration aPTT less than 55 seconds Heparin Sodium (Porcine) 3,000 units 06/03/24 12:33 06/06/24 05:43 Heparin Sodium 5,000 Units/Ml Vial IV PUSH 3,000 units PRN PRN Administration aPTT 55 - 70 seconds Hydrocortisone Sodium Succinate 100 mg 06/03/24 22:00 06/07/24 06:04 Hydrocortisone Sodium Succinate 100 Mg/2 Ml Vial IV PUSH 100 mg Q8HR ARABELLA Administration Heparin Sodium/Dextrose 25,000 units in 250 mls @ 25 mls/hr 06/03/24 12:35 06/07/24 05:59 Heparin Sodium/D5w 100 Units/Ml IV CONT 2,500 units/hr .Q10H ARABELLA 25 mls/hr Administration Protocol 2,500 UNITS/HR Dextrose 1,000 mls @ 100 mls/hr 06/03/24 13:46 Dextrose 5% 1,000 Ml IVPB PRN PRN Hypoglycemia Protocol Fentanyl Citrate 2,500 mcg in 250 mls @ 17.5 mls/hr 06/03/24 13:50 06/07/24 06:00 Fentanyl 2,500 Mcg/Ns 250 Ml IV CONT 175 mcg/hr .[id number] ARABELLA 17.5 mls/hr Titration Protocol 175 MCG/HR Midazolam HCl 100 mg in 100 mls @ 6 mls/hr 06/03/24 13:50 06/07/24 08:51 Versed 100 Mg/Ns 100 Ml IV CONT 6 mg/hr .[id number] ARABELLA 6 mls/hr Administration Protocol 6 MG/HR Doxycycline Hyclate 100 mg in 100 mls @ 100 mls/hr 06/03/24 16:00 06/07/24 04:57 Vibramycin 100 Mg/Ns 100 Ml IVPB 06/08/24 15:59 Infused Q12H ARABELLA Infusion Cisatracurium Besylate 200 mg/ 100 mls @ 0 mls/hr 06/03/24 17:45 06/06/24 18:40 Dextrose IV CONT 0 mcg/kg/min .Q0M ARABELLA 0 mls/hr Titration Protocol 0 MCG/KG/MIN Norepinephrine Bitartrate 8 mg in 250 mls @ 0 mls/hr 06/03/24 17:50 06/06/24 17:43 Levophed 8 Mg/D5w 250 Ml IV CONT Infused .Q0M ARABELLA Titration Protocol 0 MCG/MIN Cefepime HCl 2 gm in 50 mls @ 100 mls/hr 06/04/24 15:00 06/07/24 04:28 Maxipime 2 Gm/Ns 50 Ml IVPB Infused Q12H ARABELLA Infusion Dextrose 500 mls @ 250 mls/hr 06/07/24 09:47 Dextrose 5% In Water IV CONT 06/07/24 11:46 .Q2H STA Insulin Aspart 3 - 6 units 06/03/24 18:00 06/07/24 05:37 Insulin Aspart (*Bkc) 100 Units/Ml SUB-Q Not Given Q6HR [facility] Protocol Midazolam HCl 2 mg 06/03/24 13:48 06/03/24 16:40 Midazolam Hcl (*Crx) 2 Mg/2 Ml Vial IV PUSH 2 mg Q5M PRN Administration ventilator asynchrony Miscellaneous Information 0 each 06/08/24 00:01 Ivs In Normal Saline (If Possible) XX 07/08/24 00:00 CLARIFY [facility] Multi-Ingred Cream/Lotion/Oil/Oint 1 applic 06/03/24 14:00 06/07/24 08:53 Mineral Oil/White Petrolatum Ointment EACH EYE 1 applic Q12HR ARABELLA Administration Oseltamivir Phosphate 30 mg 06/04/24 09:00 06/07/24 08:50 Oseltamivir Phosphate Oral Susp 30 Mg/5 Ml Syringe FEED TUBE 06/09/24 08:59 30 mg Q12HR ARABELLA Administration Pantoprazole Sodium 40 mg 06/04/24 09:00 06/07/24 08:50 Pantoprazole Sodium Iv 40 Mg Vial IV PUSH 40 mg QAM ARABELLA Administration Sodium Chloride 10 ml 06/03/24 22:00 06/07/24 06:05 Central Line Flush IV PUSH 10 ml Q8HR ARABELLA Administration Sodium Chloride 20 ml 06/03/24 19:36 Central Line Flush IV PUSH PRN PRN after blood draws Radiology Results: ITS Impressions Chest/Abdomen/Pelvis CT 06/03/24 17:44 IMPRESSION: Dense bilateral pulmonary infiltrates. Loculated dense effusion within the left upper lobe, similar to what one might see with an adjacent fracture. Although, significant respiratory artifact renders this evaluation limited. Perhaps once adequate resuscitation has been performed and lung findings are improving repeat imaging may be attempted with intravenous contrast, in order to evaluate for the presence or absence of acute traumatic injury. Hepatosplenomegaly. Free fluid within the deep pelvis, never a normal finding in a male patient. Abdomen Ultrasound 06/05/24 08:52 IMPRESSION: 1. Small volume of ascites. Chest X-Ray 06/07/24 06:01 Impression: 1: Stable bilateral multifocal pneumonia. Labs Labs: Laboratory Results - last 24 hr 06/03/24 06/05/24 06/06/24 22:09 05:15 11:48 WBC RBC Hgb Hct MCV MCH MCHC RDW Plt Count MPV Immature Gran % (Auto) Neut % (Auto) Lymph % (Auto) [place] % (Auto) Eos % (Auto) Baso % (Auto) Lymph # (Auto) [place] # (Auto) Eos # (Auto) Baso # (Auto) Abs Immat Gran (auto) Absolute Neuts (auto) Absolute Nucleated RBC Total Counted Neutrophils % (Manual) Band Neutrophils % Lymphocytes % (Manual) Monocytes % (Manual) Nucleated RBC % Abs Neuts (Manual) Abs Lymphs (Manual) Abs Monocytes (Manual) Platelet Estimate Schistocytes APTT 71.7 H Puncture Site ABG pH ABG pCO2 ABG pO2 ABG PO2/FiO2 Ratio ABG HCO3 ABG O2 Saturation ABG O2 Content ABG Base Excess A-a Gradient Oxyhemoglobin Carboxyhemoglobin Methemoglobin Reduced Hemoglobin Total Hemoglobin O2 Delivery Device O2 Liters/Min Minute Volume Vent Rate Vent Mode FiO2 Tidal Volume PEEP Peak Inspir Pressure Pressure Support Sodium Potassium Chloride Carbon Dioxide Anion Gap BUN Creatinine Estim Creat Clear Calc Estimated GFR Glucose POC Capillary Glucose Calcium Phosphorus Magnesium Total Bilirubin AST ALT Alkaline Phosphatase Total Protein Albumin 1.8 L Qqxjf-5-Tplcrajly A1g = 1.0 g/dl h Bhyvy-3-Csxzdxgnm 1.1 H Smod-5-Qedodjds 0.3 L Gxhr-2-Rbrgtclr 0.2 Gamma Globulins 0.4 L PEP Interpretation See note Triglycerides Ur L.pneumophila Ag Not detected Urine Pneumococcal Ag Detected A 06/06/24 06/06/24 06/06/24 11:50 17:40 18:43 WBC RBC Hgb Hct MCV MCH MCHC RDW Plt Count MPV Immature Gran % (Auto) Neut % (Auto) Lymph % (Auto) [place] % (Auto) Eos % (Auto) Baso % (Auto) Lymph # (Auto) [place] # (Auto) Eos # (Auto) Baso # (Auto) Abs Immat Gran (auto) Absolute Neuts (auto) Absolute Nucleated RBC Total Counted Neutrophils % (Manual) Band Neutrophils % Lymphocytes % (Manual) Monocytes % (Manual) Nucleated RBC % Abs Neuts (Manual) Abs Lymphs (Manual) Abs Monocytes (Manual) Platelet Estimate Schistocytes APTT 71.6 H Puncture Site ABG pH ABG pCO2 ABG pO2 ABG PO2/FiO2 Ratio ABG HCO3 ABG O2 Saturation ABG O2 Content ABG Base Excess A-a Gradient Oxyhemoglobin Carboxyhemoglobin Methemoglobin Reduced Hemoglobin Total Hemoglobin O2 Delivery Device O2 Liters/Min Minute Volume Vent Rate Vent Mode FiO2 Tidal Volume PEEP Peak Inspir Pressure Pressure Support Sodium Potassium Chloride Carbon Dioxide Anion Gap BUN Creatinine Estim Creat Clear Calc Estimated GFR Glucose POC Capillary Glucose 168 H 173 H Calcium Phosphorus Magnesium Total Bilirubin AST ALT Alkaline Phosphatase Total Protein Albumin Bryxg-1-Fkxctoxbe Oemsb-9-Hfdjztjwp Hlsa-9-Ovleiote Mcqq-9-Tindakxs Gamma Globulins PEP Interpretation Triglycerides Ur L.pneumophila Ag Urine Pneumococcal Ag 02/26/25 02/27/25 02/27/25 23:11 04:53 04:54 WBC 17.9 H RBC 2.83 L Hgb 8.8 L Hct 25.2 L MCV 89.0 MCH 31.1 MCHC 34.9 RDW 13.4 Plt Count 208 MPV 9.2 Immature Gran % (Auto) Not Reportable Neut % (Auto) Not Reportable Lymph % (Auto) Not Reportable [place] % (Auto) Not Reportable Eos % (Auto) Not Reportable Baso % (Auto) Not Reportable Lymph # (Auto) Not Reportable [place] # (Auto) Not Reportable Eos # (Auto) Not Reportable Baso # (Auto) Not Reportable Abs Immat Gran (auto) Not Reportable Absolute Neuts (auto) Not Reportable Absolute Nucleated RBC Not Reportable Total Counted 100 Neutrophils % (Manual) 80 H Band Neutrophils % 15 H Lymphocytes % (Manual) 4.0 L Monocytes % (Manual) 1 L Nucleated RBC % Not Reportable Abs Neuts (Manual) 17.00 H Abs Lymphs (Manual) 0.71 L Abs Monocytes (Manual) 0.17 Platelet Estimate Adequate Schistocytes None seen APTT 117.5 H Puncture Site ABG pH ABG pCO2 ABG pO2 ABG PO2/FiO2 Ratio ABG HCO3 ABG O2 Saturation ABG O2 Content ABG Base Excess A-a Gradient Oxyhemoglobin Carboxyhemoglobin Methemoglobin Reduced Hemoglobin Total Hemoglobin O2 Delivery Device O2 Liters/Min Minute Volume Vent Rate Vent Mode FiO2 Tidal Volume PEEP Peak Inspir Pressure Pressure Support Sodium 132 L Potassium 3.7 Chloride 94 L Carbon Dioxide 32 H Anion Gap 6 BUN 82 H Creatinine 1.54 H Estim Creat Clear Calc 50 Estimated GFR 49 L Glucose 183 H POC Capillary Glucose 193 H Calcium 8.3 L Phosphorus 3.2 Magnesium 3.2 H Total Bilirubin 0.5 AST 172 H ALT 61 H Alkaline Phosphatase 66 Total Protein 6.0 L Albumin 2.5 L Zoqyd-7-Fwzubpgqj Aqbsf-3-Mftacgist Lhkl-7-Vmtpqvaq Vwtm-1-Vnlrcjdx Gamma Globulins PEP Interpretation Triglycerides 140 Ur L.pneumophila Ag Urine Pneumococcal Ag 06/07/24 06/07/24 05:04 09:06 WBC RBC Hgb Hct MCV MCH MCHC RDW Plt Count MPV Immature Gran % (Auto) Neut % (Auto) Lymph % (Auto) [place] % (Auto) Eos % (Auto) Baso % (Auto) Lymph # (Auto) [place] # (Auto) Eos # (Auto) Baso # (Auto) Abs Immat Gran (auto) Absolute Neuts (auto) Absolute Nucleated RBC Total Counted Neutrophils % (Manual) Band Neutrophils % Lymphocytes % (Manual) Monocytes % (Manual) Nucleated RBC % Abs Neuts (Manual) Abs Lymphs (Manual) Abs Monocytes (Manual) Platelet Estimate Schistocytes APTT Puncture Site Right radial ABG pH 7.361 ABG pCO2 53.2 H ABG pO2 93.5 ABG PO2/FiO2 Ratio 2.34 ABG HCO3 29.4 H ABG O2 Saturation 96.8 ABG O2 Content 13.6 L ABG Base Excess 3.3 A-a Gradient 130.5 Oxyhemoglobin 96.6 Carboxyhemoglobin 0.3 Methemoglobin 0.1 Reduced Hemoglobin 3.0 Total Hemoglobin 9.9 L O2 Delivery Device Ventilator O2 Liters/Min Not Reportable Minute Volume Not Reportable Vent Rate 28 Vent Mode Cmv FiO2 40 Tidal Volume 450 PEEP 10 Peak Inspir Pressure Not Reportable Pressure Support Not Reportable Sodium 134 L Potassium Chloride Carbon Dioxide Anion Gap BUN Creatinine Estim Creat Clear Calc Estimated GFR Glucose POC Capillary Glucose Calcium Phosphorus Magnesium Total Bilirubin AST ALT Alkaline Phosphatase Total Protein Albumin Uvywq-2-Cufsccuwr Kmurn-2-Fsdsfwdsm Wfxs-4-Ajscgshy Kbpj-0-Idmqgdcd Gamma Globulins PEP Interpretation Triglycerides Ur L.pneumophila Ag Urine Pneumococcal Ag Quality VTE Prophylaxis VTE prophylaxis: pharmacologic ordered (currently on heparin drip)
--- NOTE | 2024-06-07 11:18 | PCFNICU ---
ICU Rounding Note: Pt current nutrition is Vital AF 1.2 at 20 ml/hr. Nutrition recommendation: advancing to 50ml/hr. Last recorded weight is 76.3 kg, up from 74.6 kg on admit. Bowel Motility: No BM reported. Labs Reviewed:Glu 183, BUN 82, ,GFR 49, Cr 1.54, Na 132, Alb 2.5 Meds Noted:Protonix, Versed, Fentanyl,Heparin, Reglan. Skin: WNL Additional Notes: Patient remains on mechanical vent. Tube feedings are being tolerating of Vital AF 1.2 at 20 ml/hr plans to advance tube feedings to 50 ml/hr today. Goal rate recommended at 70 ml/hr. Normal Saline flush increased today to 75 ml q 4 hours per nephrology. Following daily in ICU rounds. Will monitor weight, labs, skin, diet orders, meds every Tuesday and Tuesday.
--- NOTE | 2024-06-07 11:47 | PM.IMPN ---
Progress Note: A&P Assessment and Plan (1) Acute respiratory failure: Code(s): J96.00 - Acute respiratory failure, unspecified whether with hypoxia or hypercapnia Status: Acute Assessment and Plan: Acute respiratory failure secondary to pneumonia and influenza -06/03: intubated in the ER and patient was proned for approximately 20 hours Influenza A positive; negative for COVID, RSV Urine Legionella Ag, pneumococcal Ag and mycoplasma IgM pending CT Chest/Abd/Pelvis 06/03: Dense bilateral pulmonary infiltrates with loculated dense effusion within the left upper lobe, similar to what one might see with an adjacent fracture. Although, significant respiratory artifact renders this evaluation limited.Perhaps once adequate resuscitation has been performed and lung findings are improving repeat imaging may be attempted with intravenous contrast, in order to evaluate for the presence or absence of acute traumatic injury. Hepatosplenomegaly. Free fluid within the deep pelvis, never a normal finding in a male patient. CXR today showing stable multifocal PNA Sedated with fentanyl, Versed. Off Nimbex on 06/06 WBC better but Bandemia worse and now at 15% ABG noted. Vent management per sap fico architect. (2) Septic shock: Code(s): A41.9 - Sepsis, unspecified organism; R65.21 - Severe sepsis with septic shock Status: Acute Assessment and Plan: Patient was hypotension refractory to IV fluids so pressors started. Etiology likely related to sespsis from pneumonia Patient received adequate amount of IV fluids BCx 06/03: Streptococcus pneumonia 05/13 bottles Lactic acid has normalized Currently off Levophed (06/05) and vasopressin (06/06) Repeat BCx 06/06: NGTD Continue to maintain MAP > 65 mm Hg or SBP > 100 mm Hg Continue vancomycin cefepime and doxycycline (06/03) Continue stress dose steroids (06/03) (3) Pneumonia: Code(s): J18.9 - Pneumonia, unspecified organism Status: Acute Assessment and Plan: See above (4) Hyponatremia: Code(s): E87.1 - Hypo-osmolality and hyponatremia Status: Acute Assessment and Plan: Hyponatremia with sodium levels of 117 on admission. Etiology not clear but consider excessive water intake, PNA, pain, SIADH, CHF and/or SSRI Patient received adequate IV fluids Na level was climbing slowly but now 132 today. Nephrology following and appreciate their input. D5W and Desmopressin started. Continue to monitor sodium levels (5) SABA (acute kidney injury): Code(s): N17.9 - Acute kidney failure, unspecified Status: Acute Assessment and Plan: Baseline creatinine unknown Presented with creatinine of 1.5 for which could be secondary to sepsis and hypovolemia Status post IV fluids Appreciate nephrology following the patient 06/03: CTA chest abdomen pelvis did not show any hydronephrosis renal calculi Jimenez in place, urine output has improved dramatically; probably post-ATN diuresis Urine lytes reflective of prerenal picture, patient has had adequate IV fluids No contrast exposure Continue to monitor urine output, electrolytes and renal function (6) Atrial fibrillation with RVR: Code(s): I48.91 - Unspecified atrial fibrillation Status: Acute Assessment and Plan: Status post DC cardioversion in ER. Currently on heparin infusion. Appreciate cardiology evaluation and recommendations Echo 06/05 with EF 30-35%, grade I diastolic dysfxn, mild valve disease and PASP 34. Patient received amiodarone bolus x2 then Amiodrone drip. He has been deescalated to oral Amiodarone. Monitor on tele (7) Elevated brain natriuretic peptide (BNP) level: Code(s): R79.89 - Other specified abnormal findings of blood chemistry Status: Acute Assessment and Plan: Patient has elevated BNP of 4190, although no evidence of volume overload CT chest showed multifocal pneumonia Echocardiogram was above Follow (8) Hypertension: Code(s): I10 - Essential (primary) hypertension Status: Acute Assessment and Plan: Holding all antihypertensives due to low BP from shock Off pressors now Follow (9) Influenza A: Code(s): J10.1 - Influenza due to other identified influenza virus with other respiratory manifestations Status: Acute Assessment and Plan: Patient was tested positive for influenza A, on Tamiflu (10) Schizophrenia: Code(s): F20.9 - Schizophrenia, unspecified Status: Acute Assessment and Plan: History of schizophrenia and other behavior issues Unknown if he takes any medications Plan DVT prophylaxis -heparin infusion for AFib RVR Stress ulcer prophylaxis -Protonix Code Status -DNR Subjective Date/time seen: 06/07/24 11:47 Interval history: 49yo male smoker with history of HTN, schizophrenia, suicide attempt, depression, and possible alcohol abuse who presented to the emergency department via EMS from [facility] after he was found to have abnormal vital signs. Patient with acute respiratory failure, pneumonia, bacteremia, acute kidney injury, hyponatremia, and AFib RVR status post DC cardioversion. Patient had 4200mL UOP overnight. He was weaned off paralytic yesterday. Sodium level much higher today so D5W and desmopressin added. He remains intubated Review of Systems Review of Systems: ROS unobtainable: Yes unobtainable due to endotracheal tube Exam Narrative: AF 98.5 125/63 79 24 92% MV Gen - Intubated, sedated HEENT - ETT and OG secured Chest - clear anteriorly CV - RRR S1/S2 with frequent extra beats. Tele showing PVCs and bigeminy Abd - Soft, Positive BS - Jimenez secured draining clear yellow urine Ext - trace pedal edema Psych - unable to assess Skin - Warm and dry Objective Data Vital Signs Vital Signs: Vital Signs - 24 hr 06/06/24 12:00 06/06/24 12:00 06/06/24 12:00 Temperature Pulse Rate 79 79 79 Respiratory Rate 28 H 28 H Blood Pressure 93/52 L 93/52 L Pulse Oximetry Oxygen Delivery Fraction of Inspired Oxygen 06/06/24 12:00 06/06/24 12:00 06/06/24 12:00 Temperature Pulse Rate 79 84 Respiratory Rate 28 H Blood Pressure Pulse Oximetry Oxygen Delivery Fraction of Inspired Oxygen 40 06/06/24 12:00 06/06/24 13:44 06/06/24 13:44 Temperature 98.2 F Pulse Rate 87 79 79 Respiratory Rate 28 H 28 H Blood Pressure 102/60 Pulse Oximetry 97 98 Oxygen Delivery Mechanical Ventilation Fraction of Inspired Oxygen 40 06/06/24 13:55 06/06/24 14:00 06/06/24 14:00 Temperature Pulse Rate 74 81 81 Respiratory Rate 28 H 28 H 28 H Blood Pressure 105/58 L Pulse Oximetry Oxygen Delivery Fraction of Inspired Oxygen 06/06/24 14:00 06/06/24 14:00 06/06/24 14:00 Temperature Pulse Rate 81 81 83 Respiratory Rate 28 H Blood Pressure 105/58 L Pulse Oximetry Oxygen Delivery Fraction of Inspired Oxygen 06/06/24 14:00 06/06/24 14:00 06/06/24 14:53 Temperature 98 F 98.0 F Pulse Rate 81 81 105 H Respiratory Rate 28 H 28 H 28 H Blood Pressure 105/58 L 105/58 L 114/71 Pulse Oximetry 98 98 Oxygen Delivery Fraction of Inspired Oxygen 06/06/24 15:02 06/06/24 15:02 06/06/24 15:04 Temperature Pulse Rate 111 H 111 H 111 H Respiratory Rate 28 H 28 H 28 H Blood Pressure 114/71 Pulse Oximetry Oxygen Delivery Fraction of Inspired Oxygen 06/06/24 15:33 06/06/24 16:00 06/06/24 16:00 Temperature Pulse Rate 99 83 Respiratory Rate 28 H Blood Pressure Pulse Oximetry Oxygen Delivery Fraction of Inspired Oxygen 40 06/06/24 16:00 06/06/24 16:00 06/06/24 16:00 Temperature Pulse Rate 82 85 85 Respiratory Rate 28 H 28 H Blood Pressure 114/74 114/74 Pulse Oximetry Oxygen Delivery Fraction of Inspired Oxygen 06/06/24 16:00 06/06/24 16:00 06/06/24 16:28 Temperature 97.7 F Pulse Rate 85 85 83 Respiratory Rate 28 H 28 H 28 H Blood Pressure 114/74 118/69 Pulse Oximetry 94 Oxygen Delivery Fraction of Inspired Oxygen 06/06/24 16:56 06/06/24 17:29 06/06/24 17:43 Temperature Pulse Rate 83 84 85 Respiratory Rate 28 H Blood Pressure 112/70 112/70 Pulse Oximetry 95 Oxygen Delivery Mechanical Ventilation Fraction of Inspired Oxygen 40 06/06/24 18:00 06/06/24 18:00 06/06/24 18:00 Temperature 98.2 F Pulse Rate 84 84 84 Respiratory Rate 28 H 28 H Blood Pressure 107/62 Pulse Oximetry 96 Oxygen Delivery Fraction of Inspired Oxygen 06/06/24 18:00 06/06/24 18:40 06/06/24 19:38 Temperature Pulse Rate 84 80 96 Respiratory Rate 28 H 26 H Blood Pressure 107/59 L Pulse Oximetry 93 Oxygen Delivery Mechanical Ventilation Fraction of Inspired Oxygen 40 06/06/24 19:38 06/06/24 19:45 06/06/24 19:57 Temperature Pulse Rate 96 103 H 88 Respiratory Rate 28 H 32 H 28 H Blood Pressure Pulse Oximetry Oxygen Delivery Fraction of Inspired Oxygen 06/06/24 20:00 06/06/24 20:00 06/06/24 20:00 Temperature 98.2 F Pulse Rate 93 93 Respiratory Rate 28 H 28 H Blood Pressure 119/66 Pulse Oximetry 93 93 Oxygen Delivery Mechanical Ventilation Fraction of Inspired Oxygen 40 40 06/06/24 20:00 06/06/24 20:00 06/06/24 20:32 Temperature Pulse Rate 87 87 89 Respiratory Rate 28 H Blood Pressure Pulse Oximetry Oxygen Delivery Fraction of Inspired Oxygen 06/06/24 22:00 06/06/24 22:00 06/06/24 22:00 Temperature 98.4 F Pulse Rate 86 86 86 Respiratory Rate 28 H 28 H Blood Pressure 114/68 Pulse Oximetry 96 Oxygen Delivery Fraction of Inspired Oxygen 06/06/24 22:00 06/06/24 22:48 06/06/24 23:04 Temperature Pulse Rate 86 83 84 Respiratory Rate 28 H 28 H Blood Pressure Pulse Oximetry 96 Oxygen Delivery Mechanical Ventilation Fraction of Inspired Oxygen 40 06/06/24 23:04 06/07/24 00:00 06/07/24 00:00 Temperature Pulse Rate 84 82 82 Respiratory Rate 28 H 28 H 28 H Blood Pressure Pulse Oximetry Oxygen Delivery Fraction of Inspired Oxygen 06/07/24 00:00 06/07/24 00:00 06/07/24 00:00 Temperature 98.2 F Pulse Rate 82 82 Respiratory Rate 28 H Blood Pressure 110/58 L Pulse Oximetry 96 Oxygen Delivery Fraction of Inspired Oxygen 40 06/07/24 00:20 06/07/24 02:00 06/07/24 02:00 Temperature 98.1 F Pulse Rate 82 79 76 Respiratory Rate 28 H 28 H Blood Pressure 113/65 Pulse Oximetry 96 96 Oxygen Delivery Mechanical Ventilation Fraction of Inspired Oxygen 40 06/07/24 02:00 06/07/24 02:00 06/07/24 02:08 Temperature Pulse Rate 76 76 77 Respiratory Rate 28 H 28 H Blood Pressure Pulse Oximetry 96 Oxygen Delivery Mechanical Ventilation Fraction of Inspired Oxygen 40 06/07/24 02:08 06/07/24 02:20 06/07/24 03:48 Temperature Pulse Rate 77 79 79 Respiratory Rate 28 H 28 H 28 H Blood Pressure Pulse Oximetry 96 Oxygen Delivery Mechanical Ventilation Fraction of Inspired Oxygen 40 06/07/24 03:52 06/07/24 04:00 06/07/24 04:00 Temperature 98.1 F Pulse Rate 80 82 Respiratory Rate 28 H Blood Pressure 118/68 Pulse Oximetry 97 Oxygen Delivery Fraction of Inspired Oxygen 40 06/07/24 04:00 06/07/24 04:00 06/07/24 05:08 Temperature Pulse Rate 74 74 90 Respiratory Rate 28 H 28 H Blood Pressure Pulse Oximetry 95 Oxygen Delivery Mechanical Ventilation Fraction of Inspired Oxygen 40 06/07/24 06:00 06/07/24 06:00 06/07/24 06:00 Temperature Pulse Rate 81 82 82 Respiratory Rate 28 H 28 H Blood Pressure Pulse Oximetry Oxygen Delivery Fraction of Inspired Oxygen 06/07/24 06:00 06/07/24 08:00 06/07/24 08:00 Temperature 97.4 F L 98.1 F Pulse Rate 82 84 84 Respiratory Rate 28 H 28 H 28 H Blood Pressure 114/57 L 119/56 L Pulse Oximetry 97 97 97 Oxygen Delivery Mechanical Ventilation Fraction of Inspired Oxygen 40 06/07/24 08:00 06/07/24 08:00 06/07/24 08:28 Temperature Pulse Rate 79 86 Respiratory Rate 28 H Blood Pressure Pulse Oximetry Oxygen Delivery Fraction of Inspired Oxygen 40 06/07/24 08:33 06/07/24 08:35 06/07/24 08:38 Temperature Pulse Rate 88 91 89 Respiratory Rate 28 H 28 H Blood Pressure Pulse Oximetry 95 Oxygen Delivery Mechanical Ventilation Fraction of Inspired Oxygen 40 06/07/24 08:51 06/07/24 10:00 06/07/24 10:00 Temperature 98.5 F Pulse Rate 88 89 83 Respiratory Rate 28 H 24 H Blood Pressure 125/63 Pulse Oximetry 98 Oxygen Delivery Fraction of Inspired Oxygen 06/07/24 10:37 Temperature Pulse Rate 79 Respiratory Rate Blood Pressure Pulse Oximetry 92 Oxygen Delivery Mechanical Ventilation Fraction of Inspired Oxygen 40 Intake/Output Intake/Output: Intake & Output 06/04/24 06/05/24 06/06/24 06/07/24 23:59 23:59 23:59 23:59 Intake Total 5338.0 3171.1 2863.9 942.4 Output Total 1375 1075 2575 2300 Balance 3963.0 2096.1 288.9 -1357.6 Meds/Results Medications: Active Medications Generic Name Dose Route Start Last Admin Trade Name Freq PRN Reason Stop Dose Admin Acetaminophen 650 mg 06/03/24 13:56 Acetaminophen Elixir 325 Mg/10.15 Ml Udc FEED TUBE Q4H PRN Fever Albuterol/Ipratropium 3 ml 06/03/24 13:50 Ipratropium 0.5 Mg/Albuterol Sulfate 2.5 Mg Ampul.Neb 3 Ml INHALATION Q6HRT PRN Wheezng Albuterol/Ipratropium 3 ml 06/03/24 20:00 06/07/24 08:28 Ipratropium 0.5 Mg/Albuterol Sulfate 2.5 Mg Ampul.Neb 3 Ml INHALATION 3 ml Q6HRT ARABELLA Administration Amiodarone HCl 400 mg 06/06/24 09:40 06/07/24 08:50 Amiodarone Hcl 200 Mg Tablet PO 06/13/24 09:39 400 mg Q12HR ARABELLA Administration Amiodarone HCl 200 mg 06/14/24 08:00 Amiodarone Hcl 200 Mg Tablet PO DAILY@0800 ARABELLA Dextrose 12.5 gm 06/03/24 13:46 Dextrose 50% 25 Gm/50 Ml Syringe IV PUSH PRN PRN Hypoglycemia Protocol Glucagon 1 mg 06/03/24 13:46 Glucagon For Inj 1 Mg Vial IM PRN PRN Hypoglycemia Protocol Glucose 15 gm 06/03/24 13:46 Glucose Oral Gel 15 Gm Of Glucse In 37.5 Gm Tube PO PRN PRN Hypoglycemia Protocol Heparin Sodium (Porcine) 6,000 units 06/03/24 12:33 06/04/24 23:06 Heparin Sodium 5,000 Units/Ml Vial IV PUSH 6,000 units PRN PRN Administration aPTT less than 55 seconds Heparin Sodium (Porcine) 3,000 units 06/03/24 12:33 06/06/24 05:43 Heparin Sodium 5,000 Units/Ml Vial IV PUSH 3,000 units PRN PRN Administration aPTT 55 - 70 seconds Hydrocortisone Sodium Succinate 100 mg 06/03/24 22:00 06/07/24 06:04 Hydrocortisone Sodium Succinate 100 Mg/2 Ml Vial IV PUSH 100 mg Q8HR ARABELLA Administration Heparin Sodium/Dextrose 25,000 units in 250 mls @ 25 mls/hr 06/03/24 12:35 06/07/24 05:59 Heparin Sodium/D5w 100 Units/Ml IV CONT 2,500 units/hr .Q10H ARABELLA 25 mls/hr Administration Protocol 2,500 UNITS/HR Dextrose 1,000 mls @ 100 mls/hr 06/03/24 13:46 Dextrose 5% 1,000 Ml IVPB PRN PRN Hypoglycemia Protocol Fentanyl Citrate 2,500 mcg in 250 mls @ 17.5 mls/hr 06/03/24 13:50 06/07/24 06:00 Fentanyl 2,500 Mcg/Ns 250 Ml IV CONT 175 mcg/hr .[id number] ARABELLA 17.5 mls/hr Titration Protocol 175 MCG/HR Midazolam HCl 100 mg in 100 mls @ 6 mls/hr 06/03/24 13:50 06/07/24 08:51 Versed 100 Mg/Ns 100 Ml IV CONT 6 mg/hr .[id number] ARABELLA 6 mls/hr Administration Protocol 6 MG/HR Doxycycline Hyclate 100 mg in 100 mls @ 100 mls/hr 06/03/24 16:00 06/07/24 04:57 Vibramycin 100 Mg/Ns 100 Ml IVPB 06/08/24 15:59 Infused Q12H ARABELLA Infusion Cisatracurium Besylate 200 mg/ 100 mls @ 0 mls/hr 06/03/24 17:45 06/06/24 18:40 Dextrose IV CONT 0 mcg/kg/min .Q0M ARABELLA 0 mls/hr Titration Protocol 0 MCG/KG/MIN Norepinephrine Bitartrate 8 mg in 250 mls @ 0 mls/hr 06/03/24 17:50 06/06/24 17:43 Levophed 8 Mg/D5w 250 Ml IV CONT Infused .Q0M ARABELLA Titration Protocol 0 MCG/MIN Cefepime HCl 2 gm in 50 mls @ 100 mls/hr 06/04/24 15:00 06/07/24 04:28 Maxipime 2 Gm/Ns 50 Ml IVPB Infused Q12H ARABELLA Infusion Insulin Aspart 3 - 6 units 06/03/24 18:00 06/07/24 05:37 Insulin Aspart (*Bkc) 100 Units/Ml SUB-Q Not Given Q6HR [facility] Protocol Metoclopramide HCl 10 mg 06/07/24 12:00 Metoclopramide Hcl Inj 10 Mg/2 Ml Vial IV PUSH 06/08/24 06:01 Q6HR ARABELLA Midazolam HCl 2 mg 06/03/24 13:48 06/03/24 16:40 Midazolam Hcl (*Crx) 2 Mg/2 Ml Vial IV PUSH 2 mg Q5M PRN Administration ventilator asynchrony Miscellaneous Information 0 each 06/08/24 00:01 Ivs In Normal Saline (If Possible) XX 07/08/24 00:00 CLARIFY ARABELLA Multi-Ingred Cream/Lotion/Oil/Oint 1 applic 06/03/24 14:00 06/07/24 08:53 Mineral Oil/White Petrolatum Ointment EACH EYE 1 applic Q12HR ARABELLA Administration Oseltamivir Phosphate 30 mg 06/04/24 09:00 06/07/24 08:50 Oseltamivir Phosphate Oral Susp 30 Mg/5 Ml Syringe FEED TUBE 06/09/24 08:59 30 mg Q12HR ARABELLA Administration Pantoprazole Sodium 40 mg 06/04/24 09:00 06/07/24 08:50 Pantoprazole Sodium Iv 40 Mg Vial IV PUSH 40 mg QAM ARABELLA Administration Sodium Chloride 10 ml 06/03/24 22:00 06/07/24 06:05 Central Line Flush IV PUSH 10 ml Q8HR ARABELLA Administration Sodium Chloride 20 ml 06/03/24 19:36 Central Line Flush IV PUSH PRN PRN after blood draws Radiology Results: ITS Impressions Chest/Abdomen/Pelvis CT 06/03/24 17:44 IMPRESSION: Dense bilateral pulmonary infiltrates. Loculated dense effusion within the left upper lobe, similar to what one might see with an adjacent fracture. Although, significant respiratory artifact renders this evaluation limited. Perhaps once adequate resuscitation has been performed and lung findings are improving repeat imaging may be attempted with intravenous contrast, in order to evaluate for the presence or absence of acute traumatic injury. Hepatosplenomegaly. Free fluid within the deep pelvis, never a normal finding in a male patient. Abdomen Ultrasound 06/05/24 08:52 IMPRESSION: 1. Small volume of ascites. Chest X-Ray 06/07/24 06:01 Impression: 1: Stable bilateral multifocal pneumonia. Labs Labs: Laboratory Results - last 24 hr 06/03/24 06/05/24 06/06/24 22:09 05:15 11:48 WBC RBC Hgb Hct MCV MCH MCHC RDW Plt Count MPV Immature Gran % (Auto) Neut % (Auto) Lymph % (Auto) [place] % (Auto) Eos % (Auto) Baso % (Auto) Lymph # (Auto) [place] # (Auto) Eos # (Auto) Baso # (Auto) Abs Immat Gran (auto) Absolute Neuts (auto) Absolute Nucleated RBC Total Counted Neutrophils % (Manual) Band Neutrophils % Lymphocytes % (Manual) Monocytes % (Manual) Nucleated RBC % Abs Neuts (Manual) Abs Lymphs (Manual) Abs Monocytes (Manual) Platelet Estimate Schistocytes APTT 71.7 H Puncture Site ABG pH ABG pCO2 ABG pO2 ABG PO2/FiO2 Ratio ABG HCO3 ABG O2 Saturation ABG O2 Content ABG Base Excess A-a Gradient Oxyhemoglobin Carboxyhemoglobin Methemoglobin Reduced Hemoglobin Total Hemoglobin O2 Delivery Device O2 Liters/Min Minute Volume Vent Rate Vent Mode FiO2 Tidal Volume PEEP Peak Inspir Pressure Pressure Support Sodium Potassium Chloride Carbon Dioxide Anion Gap BUN Creatinine Estim Creat Clear Calc Estimated GFR Glucose POC Capillary Glucose Calcium Phosphorus Magnesium Total Bilirubin AST ALT Alkaline Phosphatase Total Protein Albumin 1.8 L Dyjwg-2-Uxseemeoz A1g = 1.0 g/dl h Bkotk-1-Uwirnuozm 1.1 H Vkmm-3-Saccqgqj 0.3 L Odxa-1-Exeoynum 0.2 Gamma Globulins 0.4 L PEP Interpretation See note Triglycerides Ur L.pneumophila Ag Not detected Urine Pneumococcal Ag Detected A 06/06/24 06/06/24 06/06/24 11:50 17:40 18:43 WBC RBC Hgb Hct MCV MCH MCHC RDW Plt Count MPV Immature Gran % (Auto) Neut % (Auto) Lymph % (Auto) [place] % (Auto) Eos % (Auto) Baso % (Auto) Lymph # (Auto) [place] # (Auto) Eos # (Auto) Baso # (Auto) Abs Immat Gran (auto) Absolute Neuts (auto) Absolute Nucleated RBC Total Counted Neutrophils % (Manual) Band Neutrophils % Lymphocytes % (Manual) Monocytes % (Manual) Nucleated RBC % Abs Neuts (Manual) Abs Lymphs (Manual) Abs Monocytes (Manual) Platelet Estimate Schistocytes APTT 71.6 H Puncture Site ABG pH ABG pCO2 ABG pO2 ABG PO2/FiO2 Ratio ABG HCO3 ABG O2 Saturation ABG O2 Content ABG Base Excess A-a Gradient Oxyhemoglobin Carboxyhemoglobin Methemoglobin Reduced Hemoglobin Total Hemoglobin O2 Delivery Device O2 Liters/Min Minute Volume Vent Rate Vent Mode FiO2 Tidal Volume PEEP Peak Inspir Pressure Pressure Support Sodium Potassium Chloride Carbon Dioxide Anion Gap BUN Creatinine Estim Creat Clear Calc Estimated GFR Glucose POC Capillary Glucose 168 H 173 H Calcium Phosphorus Magnesium Total Bilirubin AST ALT Alkaline Phosphatase Total Protein Albumin Hkncf-4-Srbcrsbwj Pscpc-6-Ezsbtuawv Pwyb-9-Rvbedhrm Etbx-5-Ikxilvgw Gamma Globulins PEP Interpretation Triglycerides Ur L.pneumophila Ag Urine Pneumococcal Ag 06/06/24 06/07/24 06/07/24 23:11 04:53 04:54 WBC 17.9 H RBC 2.83 L Hgb 8.8 L Hct 25.2 L MCV 89.0 MCH 31.1 MCHC 34.9 RDW 13.4 Plt Count 208 MPV 9.2 Immature Gran % (Auto) Not Reportable Neut % (Auto) Not Reportable Lymph % (Auto) Not Reportable [place] % (Auto) Not Reportable Eos % (Auto) Not Reportable Baso % (Auto) Not Reportable Lymph # (Auto) Not Reportable [place] # (Auto) Not Reportable Eos # (Auto) Not Reportable Baso # (Auto) Not Reportable Abs Immat Gran (auto) Not Reportable Absolute Neuts (auto) Not Reportable Absolute Nucleated RBC Not Reportable Total Counted 100 Neutrophils % (Manual) 80 H Band Neutrophils % 15 H Lymphocytes % (Manual) 4.0 L Monocytes % (Manual) 1 L Nucleated RBC % Not Reportable Abs Neuts (Manual) 17.00 H Abs Lymphs (Manual) 0.71 L Abs Monocytes (Manual) 0.17 Platelet Estimate Adequate Schistocytes None seen APTT 117.5 H Puncture Site ABG pH ABG pCO2 ABG pO2 ABG PO2/FiO2 Ratio ABG HCO3 ABG O2 Saturation ABG O2 Content ABG Base Excess A-a Gradient Oxyhemoglobin Carboxyhemoglobin Methemoglobin Reduced Hemoglobin Total Hemoglobin O2 Delivery Device O2 Liters/Min Minute Volume Vent Rate Vent Mode FiO2 Tidal Volume PEEP Peak Inspir Pressure Pressure Support Sodium 132 L Potassium 3.7 Chloride 94 L Carbon Dioxide 32 H Anion Gap 6 BUN 82 H Creatinine 1.54 H Estim Creat Clear Calc 50 Estimated GFR 49 L Glucose 183 H POC Capillary Glucose 193 H Calcium 8.3 L Phosphorus 3.2 Magnesium 3.2 H Total Bilirubin 0.5 AST 172 H ALT 61 H Alkaline Phosphatase 66 Total Protein 6.0 L Albumin 2.5 L Yzjra-4-Tgliguyqz Xofdc-4-Fphihgkxc Nhvz-2-Ngxnwpac Usjf-1-Cgcraltk Gamma Globulins PEP Interpretation Triglycerides 140 Ur L.pneumophila Ag Urine Pneumococcal Ag 06/07/24 06/07/24 05:04 09:06 WBC RBC Hgb Hct MCV MCH MCHC RDW Plt Count MPV Immature Gran % (Auto) Neut % (Auto) Lymph % (Auto) [place] % (Auto) Eos % (Auto) Baso % (Auto) Lymph # (Auto) [place] # (Auto) Eos # (Auto) Baso # (Auto) Abs Immat Gran (auto) Absolute Neuts (auto) Absolute Nucleated RBC Total Counted Neutrophils % (Manual) Band Neutrophils % Lymphocytes % (Manual) Monocytes % (Manual) Nucleated RBC % Abs Neuts (Manual) Abs Lymphs (Manual) Abs Monocytes (Manual) Platelet Estimate Schistocytes APTT Puncture Site Right radial ABG pH 7.361 ABG pCO2 53.2 H ABG pO2 93.5 ABG PO2/FiO2 Ratio 2.34 ABG HCO3 29.4 H ABG O2 Saturation 96.8 ABG O2 Content 13.6 L ABG Base Excess 3.3 A-a Gradient 130.5 Oxyhemoglobin 96.6 Carboxyhemoglobin 0.3 Methemoglobin 0.1 Reduced Hemoglobin 3.0 Total Hemoglobin 9.9 L O2 Delivery Device Ventilator O2 Liters/Min Not Reportable Minute Volume Not Reportable Vent Rate 28 Vent Mode Cmv FiO2 40 Tidal Volume 450 PEEP 10 Peak Inspir Pressure Not Reportable Pressure Support Not Reportable Sodium 134 L Potassium Chloride Carbon Dioxide Anion Gap BUN Creatinine Estim Creat Clear Calc Estimated GFR Glucose POC Capillary Glucose Calcium Phosphorus Magnesium Total Bilirubin AST ALT Alkaline Phosphatase Total Protein Albumin Gdjzs-9-Fpwnsijsq Moyac-2-Agavxamel Bqlz-9-Rvqrslfd Ncsi-9-Opvqabxc Gamma Globulins PEP Interpretation Triglycerides Ur L.pneumophila Ag Urine Pneumococcal Ag
[2024-06-07] MEDS: FENTANYL 2,500MCG/NS250ML(*CRX 2,500 MCG/250 ML BAG 17.5 MCG IV CONT (12:00)
[2024-06-07] MEDS: DESMOPRESSIN ACETATE 4 MCG/ML AMP 1 MCG SUB-Q (12:04)
[2024-06-07 12:21] LABS: Partial Thromboplastin Time 105.7 Seconds (22.3-36.8)
--- NOTE | 2024-06-07 12:25 | P.PNNP_ITS ---
Progress Note: A&P Assessment and Plan (1) SABA (acute kidney injury): Code(s): N17.9 - Acute kidney failure, unspecified Status: Acute Assessment and Plan: * slow improvement * outpatient labs reviewed: * creatinine 0.97mg/dl on 12/26/23 * creatinie 0.82mg/dl on 10/19/22 * noted admission creatinine of 1.54mg/dl * suspect multifactorial etiology: * prerenal factors/hypovolemia * infection/sepsis * hemodynamic instability * hypoxia * contrast (although creatinine elevated before exposure) * other(?) * evaluation to date noted: * CT without evidence of obstruction * UA with blood and protein but no infection * urine electrolytes prerenal * CPK normal * s/p IVF resuscitation * follow repeat labs and UOP (2) Hyponatremia: Code(s): E87.1 - Hypo-osmolality and hyponatremia Status: Acute Assessment and Plan: * slow improvement * acute * outpatient labs reviewed: * sodium 137mmol/L on 12/26/23 * sodium 140mmol/L on 10/19/22 * admission sodium 117mmol/L * etiology not entirely clear: * volume depletion? * excess free water intake? * possible medications? * secondary to acute/chronic lung disease (known smoker x 25 years) * SIADH? * s/p IVF resuscitation * hold further IVFs at this time * evaluation to date noted: * TSH okay * cortisol elevated (but also on steroids) * serum/urine osmolality, SPEP/UPEP & kappa/lambda ratio pending * overcorrection in the last 24 hours -- getting D5W and DDAVP to slow this down * follow trend of serial sodium levels (3) Septic shock: Code(s): A41.9 - Sepsis, unspecified organism; R65.21 - Severe sepsis with septic shock Status: Acute Assessment and Plan: * as noted by hypotension unresponsive to IVFs * requiring vasopressor therapy to maintain MAP * wean as tolerated * thought to be secondary to pneumonia +/- influenza * culture data noted: * blood cultures (06/03) with Streptococcus pneumoniae * blood cultures (06/06) with yeast and gram + cocci (1 set) * on antibiotics * started on antifungal therapy * on stress dose steroids (4) Acute respiratory failure with hypoxia: Code(s): J96.01 - Acute respiratory failure with hypoxia Status: Acute Assessment and Plan: * thought to be secondary to pneumonia +/- influenza * intubated in the ER due to worsening hypoxia and tachypnea (impending respiratory failure) * prone positioning to assist with oxygenation - back to supine position * viral testing negative for RSV and COVID * requiring sedation along with paralytics for ventilator synchrony * continue supportive therapy (5) Multifocal pneumonia: Code(s): J18.9 - Pneumonia, unspecified organism Status: Acute Assessment and Plan: * as noted by admission imaging * continue therapy as outlined (6) Atrial fibrillation with rapid ventricular response: Code(s): I48.91 - Unspecified atrial fibrillation Status: Acute Assessment and Plan: * failed rate control measures with IV metoprolol and cardizem * s/p dC cardioversion with return with brief return to NSR * on heparin gtt and amiodarone gtt * Echo results noted (06/05): * left ventricular systolic function is moderately reduced, estimated at 30- 35% * left ventricular diastolic function is grade I diastolic dysfunction * mild mitral valve regurgitation * mild tricuspid valve regurgitation * estimated pulmonary arterial systolic pressure is 34 mmHg * Cardiology following (7) Influenza A: Code(s): J10.1 - Influenza due to other identified influenza virus with other respiratory manifestations Status: Acute Assessment and Plan: * positive testing in ER * on Tamiflu (8) Schizophrenia: Code(s): F20.9 - Schizophrenia, unspecified Status: Acute Assessment and Plan: * known history * unclear what medication he was taking... Will continue to follow. L Subjective Date/time seen: 06/07/24 12:25 Interval history: Follow-up for acute kidney injury/acute renal failure and acute hyponatremia. Overcorrection of sodium noted this AM and despite D5W IVFs, sodium still up so another round of D5W IVFs given with DDAVP; remains intubated/sedated (and currently off paralytics); hemodynamically stable off vasopressor therapy; increased urine output overnight/last 24 hours as well. Exam 2 Narrative: General: middle aged male intubated/sedated/paralyzed and on mechanical ventilation Heart:IRRR normal S1 and S2; no rub Lungs: coarse breath sounds with scattered rales Abdomen: soft, nontender, nondistended, decreased bowel sounds Extremities: no cyanosis or clubbing; no edema Skin: no rash Objective Data Vital Signs Vital Signs: Vital Signs Temp Pulse Resp BP Pulse Ox O2 Del Method FiO2 06/07/24 12:00 85 22 H 06/07/24 10:37 79 92 Mechanical Ventilation 40 06/07/24 10:00 83 06/07/24 10:00 98.5 F 89 24 H 125/63 98 06/07/24 08:51 88 28 H 06/07/24 08:38 89 28 H 06/07/24 08:35 91 95 Mechanical Ventilation 40 06/07/24 08:33 88 28 H 06/07/24 08:28 86 28 H 06/07/24 08:00 40 06/07/24 08:00 79 06/07/24 08:00 98.1 F 84 28 H 119/56 L 97 06/07/24 08:00 84 28 H 97 Mechanical Ventilation 40 06/07/24 06:00 97.4 F L 82 28 H 114/57 L 97 06/07/24 06:00 82 06/07/24 06:00 82 28 H 06/07/24 06:00 81 28 H 06/07/24 05:08 90 95 Mechanical Ventilation 40 06/07/24 04:00 74 28 H 06/07/24 04:00 74 28 H 06/07/24 04:00 82 06/07/24 04:00 98.1 F 80 28 H 118/68 97 06/07/24 03:52 40 06/07/24 03:48 79 28 H 96 Mechanical Ventilation 40 06/07/24 02:20 79 28 H 06/07/24 02:08 77 28 H 06/07/24 02:08 77 96 Mechanical Ventilation 40 06/07/24 02:00 76 28 H 06/07/24 02:00 76 28 H 06/07/24 02:00 98.1 F 76 28 H 113/65 96 06/07/24 02:00 79 06/07/24 00:20 82 28 H 96 Mechanical Ventilation 40 06/07/24 00:00 40 06/07/24 00:00 82 06/07/24 00:00 98.2 F 82 28 H 110/58 L 96 06/07/24 00:00 82 28 H 06/07/24 00:00 82 28 H 06/06/24 23:04 84 28 H 06/06/24 23:04 84 28 H 06/06/24 22:48 83 96 Mechanical Ventilation 40 06/06/24 22:00 86 28 H 06/06/24 22:00 86 28 H 06/06/24 22:00 98.4 F 86 28 H 114/68 96 06/06/24 22:00 86 06/06/24 20:32 89 06/06/24 20:00 87 28 H 06/06/24 20:00 87 06/06/24 20:00 93 28 H 93 Mechanical Ventilation 40 06/06/24 20:00 40 06/06/24 20:00 98.2 F 93 28 H 119/66 93 06/06/24 19:57 88 28 H 06/06/24 19:45 103 H 32 H 06/06/24 19:38 96 28 H 06/06/24 19:38 96 93 Mechanical Ventilation 40 06/06/24 18:40 80 26 H 107/59 L 06/06/24 18:00 84 28 H 06/06/24 18:00 84 28 H 06/06/24 18:00 98.2 F 84 28 H 107/62 96 06/06/24 18:00 84 06/06/24 17:43 85 112/70 06/06/24 17:29 84 28 H 112/70 06/06/24 16:56 83 95 Mechanical Ventilation 40 06/06/24 16:28 83 28 H 118/69 06/06/24 16:00 97.7 F 85 28 H 114/74 94 06/06/24 16:00 85 28 H 06/06/24 16:00 85 28 H 114/74 06/06/24 16:00 85 28 H 06/06/24 16:00 82 114/74 06/06/24 16:00 40 06/06/24 16:00 83 06/06/24 15:33 99 28 H 06/06/24 15:04 111 H 28 H 114/71 06/06/24 15:02 111 H 28 H 06/06/24 15:02 111 H 28 H 06/06/24 14:53 105 H 28 H 114/71 06/06/24 14:00 98.0 F 81 28 H 105/58 L 98 06/06/24 14:00 98 F 81 28 H 105/58 L 98 06/06/24 14:00 83 06/06/24 14:00 81 28 H 06/06/24 14:00 81 105/58 L 06/06/24 14:00 81 28 H 06/06/24 14:00 81 28 H 105/58 L 06/06/24 13:55 74 28 H Intake/Output Intake/Output: Intake & Output 06/04/24 06/05/24 06/06/24 06/07/24 23:59 23:59 23:59 23:59 Intake Total 5338.0 3171.1 2863.9 1209.9 Output Total 1375 1075 2575 2300 Balance 3963.0 2096.1 288.9 -1090.1 Meds/Results Medications: Active Medications Generic Name Dose Route Start Last Admin Trade Name Freq PRN Reason Stop Dose Admin Acetaminophen 650 mg 06/03/24 13:56 Acetaminophen Elixir 325 Mg/10.15 Ml Udc FEED TUBE Q4H PRN Fever Albuterol/Ipratropium 3 ml 06/03/24 13:50 Ipratropium 0.5 Mg/Albuterol Sulfate 2.5 Mg Ampul.Neb 3 Ml INHALATION Q6HRT PRN Wheezng Albuterol/Ipratropium 3 ml 06/03/24 20:00 06/07/24 08:28 Ipratropium 0.5 Mg/Albuterol Sulfate 2.5 Mg Ampul.Neb 3 Ml INHALATION 3 ml Q6HRT ARABELLA Administration Amiodarone HCl 400 mg 06/06/24 09:40 06/07/24 08:50 Amiodarone Hcl 200 Mg Tablet PO 06/13/24 09:39 400 mg Q12HR ARABELLA Administration Amiodarone HCl 200 mg 06/14/24 08:00 Amiodarone Hcl 200 Mg Tablet PO DAILY@0800 [facility] Dextrose 12.5 gm 06/03/24 13:46 Dextrose 50% 25 Gm/50 Ml Syringe IV PUSH PRN PRN Hypoglycemia Protocol Glucagon 1 mg 06/03/24 13:46 Glucagon For Inj 1 Mg Vial IM PRN PRN Hypoglycemia Protocol Glucose 15 gm 06/03/24 13:46 Glucose Oral Gel 15 Gm Of Glucse In 37.5 Gm Tube PO PRN PRN Hypoglycemia Protocol Heparin Sodium (Porcine) 6,000 units 06/03/24 12:33 06/04/24 23:06 Heparin Sodium 5,000 Units/Ml Vial IV PUSH 6,000 units PRN PRN Administration aPTT less than 55 seconds Heparin Sodium (Porcine) 3,000 units 06/03/24 12:33 06/06/24 05:43 Heparin Sodium 5,000 Units/Ml Vial IV PUSH 3,000 units PRN PRN Administration aPTT 55 - 70 seconds Hydrocortisone Sodium Succinate 100 mg 06/03/24 22:00 06/07/24 06:04 Hydrocortisone Sodium Succinate 100 Mg/2 Ml Vial IV PUSH 100 mg Q8HR ARABELLA Administration Heparin Sodium/Dextrose 25,000 units in 250 mls @ 25 mls/hr 06/03/24 12:35 06/07/24 12:29 Heparin Sodium/D5w 100 Units/Ml IV CONT 2,500 units/hr .Q10H ARABELLA 25 mls/hr Titration Protocol 2,500 UNITS/HR Dextrose 1,000 mls @ 100 mls/hr 06/03/24 13:46 Dextrose 5% 1,000 Ml IVPB PRN PRN Hypoglycemia Protocol Fentanyl Citrate 2,500 mcg in 250 mls @ 17.5 mls/hr 06/03/24 13:50 06/07/24 12:00 Fentanyl 2,500 Mcg/Ns 250 Ml IV CONT 175 mcg/hr .[id number] ARABELLA 17.5 mls/hr Administration Protocol 175 MCG/HR Midazolam HCl 100 mg in 100 mls @ 6 mls/hr 06/03/24 13:50 06/07/24 08:51 Versed 100 Mg/Ns 100 Ml IV CONT 6 mg/hr .[id number] ARABELLA 6 mls/hr Administration Protocol 6 MG/HR Doxycycline Hyclate 100 mg in 100 mls @ 100 mls/hr 06/03/24 16:00 06/07/24 04:57 Vibramycin 100 Mg/Ns 100 Ml IVPB 06/08/24 15:59 Infused Q12H ARABELLA Infusion Cisatracurium Besylate 200 mg/ 100 mls @ 0 mls/hr 06/03/24 17:45 06/06/24 18:40 Dextrose IV CONT 0 mcg/kg/min .Q0M ARABELLA 0 mls/hr Titration Protocol 0 MCG/KG/MIN Norepinephrine Bitartrate 8 mg in 250 mls @ 0 mls/hr 06/03/24 17:50 06/06/24 17:43 Levophed 8 Mg/D5w 250 Ml IV CONT Infused .Q0M ARABELLA Titration Protocol 0 MCG/MIN Cefepime HCl 2 gm in 50 mls @ 100 mls/hr 06/04/24 15:00 06/07/24 04:28 Maxipime 2 Gm/Ns 50 Ml IVPB Infused Q12H ARABELLA Infusion Insulin Aspart 3 - 6 units 06/03/24 18:00 06/07/24 12:04 Insulin Aspart (*Bkc) 100 Units/Ml SUB-Q Not Given Q6HR ARABELLA Protocol Metoclopramide HCl 10 mg 06/07/24 12:00 06/07/24 11:59 Metoclopramide Hcl Inj 10 Mg/2 Ml Vial IV PUSH 06/08/24 06:01 10 mg Q6HR ARABELLA Administration Midazolam HCl 2 mg 06/03/24 13:48 06/03/24 16:40 Midazolam Hcl (*Crx) 2 Mg/2 Ml Vial IV PUSH 2 mg Q5M PRN Administration ventilator asynchrony Miscellaneous Information 0 each 06/08/24 00:01 Ivs In Normal Saline (If Possible) XX 07/08/24 00:00 CLARIFY ARABELLA Multi-Ingred Cream/Lotion/Oil/Oint 1 applic 06/03/24 14:00 06/07/24 08:53 Mineral Oil/White Petrolatum Ointment EACH EYE 1 applic Q12HR ARABELLA Administration Oseltamivir Phosphate 30 mg 06/04/24 09:00 06/07/24 08:50 Oseltamivir Phosphate Oral Susp 30 Mg/5 Ml Syringe FEED TUBE 06/09/24 08:59 30 mg Q12HR ARABELLA Administration Pantoprazole Sodium 40 mg 06/04/24 09:00 06/07/24 08:50 Pantoprazole Sodium Iv 40 Mg Vial IV PUSH 40 mg QAM ARABELLA Administration Sodium Chloride 10 ml 06/03/24 22:00 06/07/24 06:05 Central Line Flush IV PUSH 10 ml Q8HR ARABELLA Administration Sodium Chloride 20 ml 06/03/24 19:36 Central Line Flush IV PUSH PRN PRN after blood draws Radiology Results: ITS Impressions Chest/Abdomen/Pelvis CT 06/03/24 17:44 IMPRESSION: Dense bilateral pulmonary infiltrates. Loculated dense effusion within the left upper lobe, similar to what one might see with an adjacent fracture. Although, significant respiratory artifact renders this evaluation limited. Perhaps once adequate resuscitation has been performed and lung findings are improving repeat imaging may be attempted with intravenous contrast, in order to evaluate for the presence or absence of acute traumatic injury. Hepatosplenomegaly. Free fluid within the deep pelvis, never a normal finding in a male patient. Abdomen Ultrasound 06/05/24 08:52 IMPRESSION: 1. Small volume of ascites. Chest X-Ray 06/07/24 06:01 Impression: 1: Stable bilateral multifocal pneumonia. Labs Labs: Laboratory Tests 06/07/24 04:53 06/07/24 09:06 06/07/24 04:53 Sodium 132 L <-- 123 (06/06 @ 04:44AM) Potassium 3.7 Chloride 94 L Carbon Dioxide 32 H Anion Gap 6 BUN 82 H Creatinine 1.54 H Estim Creat Clear Calc 50 Estimated GFR 49 L Glucose 183 H Calcium 8.3 L Phosphorus 3.2 Magnesium 3.2 H Total Bilirubin 0.5 AST 172 H ALT 61 H Alkaline Phosphatase 66 Total Protein 6.0 L Albumin 2.5 L Microbiology 06/06/24 08:18 Blood Blood Culture - Preliminary 06/06/24 08:18 Blood Blood Culture - Preliminary 06/03/24 12:45 Blood Blood Culture - Final Streptococcus pneumoniae
[2024-06-07 12:34] LABS: Glucose Point of Care 186 mg/dl (65-105)
[2024-06-07 15:37] LABS: Sodium 134 mmol/L (137-145)
[2024-06-07 18:43] LABS: Glucose Point of Care 199 mg/dl (65-105)
[2024-06-07 19:10] LABS: Partial Thromboplastin Time 112.8 Seconds (22.3-36.8)
[2024-06-07] MEDS: INSULIN ASPART (*BKC) 100 UNITS/ML SUB-Q (23:10)
[2024-06-07 23:19] LABS: Glucose Point of Care 251 mg/dl (65-105)
[2024-06-08] VITALS (49 sets, daily range): BP systolic 118–151; BP diastolic 64–99; PULSE 75–125; RESP 14–37; TEMP 36.8–37.6; O2SAT 90–100
[2024-06-08 01:25] LABS: Partial Thromboplastin Time 78.1 Seconds (22.3-36.8)
[2024-06-08] MEDS: MIDAZOLAM 100MG/NS 100ML(*CRX) 100 MG/100 ML BAG 8 MG IV CONT (02:39)
[2024-06-08] MEDS: HEPARIN SOD/D5W 100 UNITS/ML 25,000 UNITS/250 ML BAG 24 UNITS IV CONT ×2 (02:42→13:30)
[2024-06-08] MEDS: IPRATROPIUM 0.5 MG/ALBUTEROL SULFATE 2.5 MG AMPUL.NEB 3 ML INHALATION ×4 (02:59→20:03)
[2024-06-08] MEDS: FENTANYL 2,500MCG/NS250ML(*CRX 2,500 MCG/250 ML BAG 20 MCG IV CONT (03:54)
[2024-06-08] MEDS: CEFEPIME 2 GM/NS 50 ML 2 GM/50 ML BAG IVPB ×2 (03:55→15:40)
[2024-06-08] MEDS: DOXYCYCLINE 100 MG/NS 100 ML 100 MG/100 ML BAG IVPB (03:55)
[2024-06-08 05:09] LABS: Alveolar/Arterial O2 Gradient 139.1 mmHg; Base Excess ABG 6.5 mEq/l (+/-2.0); Carboxyhemoglobin 0.3 % THb (0-2.0); Fractional Inspired Oxygen 40 %; HCO3 ABG 30.1 mEq/l (22.0-26.0); Methemoglobin ABG 0.2 %THb (0-1.5); Oxygen Content ABG 15.5 %vol (16.0-22.0); Oxyhemoglobin 97.4 % THb (90.0-100.0); PCO2 ABG 39.6 mmHg (35.0-45.0); PO2 ABG 100.6 mmHg (80.0-100.0); PO2 FiO2 Ratio Arterial Blood 2.51 %; Reduced Hemoglobin 2.1 %THb (0-5.0); Total Hemoglobin 11.2 g/dL (12.0-18.0); pH ABG 7.499 (7.350-7.450)
[2024-06-08 05:11] LABS: Device VENTILATOR; Modified Allen's Test Pass; Site Drawn RIGHT RADIAL
[2024-06-08 05:12] LABS: Arterial Blood Gas PEEP 10 cmH2O; Arterial Blood Gas Tidal Volume 450 ml; Arterial Blood Gas Vent Mode CMV; Arterial Blood Gas Ventilator rate 28 /MIN
[2024-06-08 05:25] LABS: Hemoglobin 8.9 g/dL (14.0-18.0); Mean Corpuscular HGB Conc 34.2 g/dl (32-36); Mean Corpuscular Hemoglobin 31.1 pg (26-34); Mean Corpuscular Volume 90.9 fl (80-100); Mean Platelet Volume 9.5 fl (7.4-10.4); Platelet Count Result 220 k/mm3 (150-375); Red Blood Count 2.86 M/mm3 (4.6-6.20); Red Cell Distribution Width 13.7 % (11.5-14.5); White Blood Count 16.5 K/mm3 (4.5-10.0)
[2024-06-08 05:38] LABS: Alanine Aminotransferase 48 U/L (6-50); Albumin Level 2.6 g/dL (3.5-5.1); Alkaline Phosphatase 73 U/L (38-126); Anion Gap 6 mmol/L (4-12); Aspartate Amino Transferase 102 U/L (17-59); Bilirubin,Total 0.6 mg/dL (0.2-1.3); Blood Urea Nitrogen 74 mg/dL (9-20); Calcium 8.1 mg/dL (8.4-10.2); Carbon Dioxide 32 mmol/L (22-30); Chloride 100 mmol/L (98-107); Estimated CRCL calculation 62 ml/min; Estimated Glomerular Filt Rate > 60; Glucose 183 mg/dL (65-110); Magnesium 2.9 mg/dL (1.6-2.3); Phosphorus 2.5 mg/dL (2.5-4.5); Sodium 138 mmol/L (137-145)
[2024-06-08] MEDS: CENTRAL LINE FLUSH 10 ML IV PUSH ×2 (05:47→13:31)
[2024-06-08] MEDS: HYDROCORTISONE SODIUM SUCCINATE 100 MG/2 ML VIAL IV PUSH ×2 (05:47→13:31)
[2024-06-08] MEDS: METOCLOPRAMIDE HCL INJ 10 MG/2 ML VIAL IV PUSH (05:47)
[2024-06-08 06:32] LABS: Band Neutrophils Percent 9 % (0-6); Lymphocytes Absolute Manual 0.82 K/mm3 (1.1-4.5); Lymphocytes Percent Manual 5 % (18-44); Monocytes Absolute Manual 0.66 K/mm3 (0.1-0.90); Monocytes Percent Manual 4 % (3-9); Neutrophils Absolute Manual 15.01 K/mm3 (1.3-6.7); Neutrophils Percent Manual 82 % (46-73); Platelet Estimate Adequate (Adequate); Schistocytes None Seen; Total Cells Counted 100
[2024-06-08] MEDS: AMIODARONE HCL 200 MG TABLET 400 MG PO ×2 (08:08→21:41)
[2024-06-08] MEDS: MICAFUNGIN SODIUM 100 MG in SODIUM CHLORIDE 0.9% IV 100 ML IVPB (08:08)
[2024-06-08] MEDS: MINERAL OIL/WHITE PETROLATUM OINTMENT 1 APPLIC EACH EYE ×2 (08:08→21:41)
[2024-06-08] MEDS: PANTOPRAZOLE SODIUM IV 40 MG VIAL IV PUSH (08:09)
[2024-06-08] MEDS: OSELTAMIVIR PHOSPHATE ORAL SUSP 30 MG/5 ML SYRINGE FEED TUBE ×2 (08:11→21:41)
[2024-06-08] MEDS: VANCOMYCIN 2,000 MG/NS 500 ML 2,000 MG/500 ML BAG 250 MG IVPB (09:05)
--- NOTE | 2024-06-08 09:18 | PCNFU ---
Nutrition Follow-Up Complete: Suboptimal Energy Intake as related to mechanical ventilation as evidenced by NPO. goal: Meet estimated nutritional needs. Patient is progressing towards goal. We will continue current goal. Pt current nutrition is Vital AF 1.2 at 50ml/hr Nutrition recommendation: goal rate 70 ml/hr. Last recorded weight is 79.2 kg, up from 74.6 kg on admit. Bowel Motility: No BM reported, Financial Services Professional is aware. Labs Reviewed: Mg 2.9, BUN 74, Glu 183, Alb 2.6 Meds Noted:Protonix, Versed, Fentanyl, NovoLog Skin: WNL Additional Notes: Patient remains on mechanical vent. Tube feedings are being tolerated of Vital AF 1.2 at 50 ml/hr. Spoke with Financial Services Professional today, plans to to advance 70 ml/hr. Total Nutrition: 1848 kcal/116 gm protein/1249 ml water. Flush 75 ml of Normal Saline q 4 hours. Agree with diet orders. Will monitor weight, labs, skin, diet orders, meds every Tuesday and Tuesday.
[2024-06-08 09:24] LABS: Partial Thromboplastin Time 93.4 Seconds (22.3-36.8)
--- NOTE | 2024-06-08 09:52 | P.PNNP_ITS ---
Progress Note: A&P Assessment and Plan (1) SABA (acute kidney injury): Code(s): N17.9 - Acute kidney failure, unspecified Status: Acute Assessment and Plan: * improving/resolving * outpatient labs reviewed: * creatinine 0.97mg/dl on 12/26/23 * creatinie 0.82mg/dl on 10/19/22 * noted admission creatinine of 1.54mg/dl * suspect multifactorial etiology: * prerenal factors/hypovolemia * infection/sepsis * hemodynamic instability * hypoxia * contrast (although creatinine elevated before exposure) * other(?) * evaluation to date noted: * CT without evidence of obstruction * UA with blood and protein but no infection * urine electrolytes prerenal * CPK normal * s/p IVF resuscitation * follow repeat labs and UOP (2) Hyponatremia: Code(s): E87.1 - Hypo-osmolality and hyponatremia Status: Acute Assessment and Plan: * resolved * acute * outpatient labs reviewed: * sodium 137mmol/L on 12/26/23 * sodium 140mmol/L on 10/19/22 * admission sodium 117mmol/L * etiology not entirely clear: * volume depletion? * excess free water intake? * possible medications? * secondary to acute/chronic lung disease (known smoker x 25 years) * SIADH? * s/p IVF resuscitation * hold further IVFs at this time * evaluation to date noted: * TSH okay * cortisol elevated (but also on steroids) * serum/urine osmolality, SPEP/UPEP & kappa/lambda ratio pending * overcorrection on 06/06 - 06/07) -- s/p D5W fluids and DDAVP to slow this down * this was achieved with ongoing appropriate correction * follow trend of serial sodium levels (3) Septic shock: Code(s): A41.9 - Sepsis, unspecified organism; R65.21 - Severe sepsis with septic shock Status: Acute Assessment and Plan: * as noted by hypotension unresponsive to IVFs * requiring vasopressor therapy to maintain MAP * wean as tolerated * thought to be secondary to pneumonia +/- influenza * culture data noted: * blood cultures (06/03) with Streptococcus pneumoniae * blood cultures (06/06) with yeast and gram + cocci (1 set) * on antibiotics * started on antifungal therapy * on stress dose steroids (4) Acute respiratory failure with hypoxia: Code(s): J96.01 - Acute respiratory failure with hypoxia Status: Acute Assessment and Plan: * thought to be secondary to pneumonia +/- influenza * intubated in the ER due to worsening hypoxia and tachypnea (impending respiratory failure) * prone positioning to assist with oxygenation - back to supine position * viral testing negative for RSV and COVID * requiring sedation along with paralytics for ventilator synchrony * continue supportive therapy (5) Multifocal pneumonia: Code(s): J18.9 - Pneumonia, unspecified organism Status: Acute Assessment and Plan: * as noted by admission imaging * continue therapy as outlined (6) Atrial fibrillation with rapid ventricular response: Code(s): I48.91 - Unspecified atrial fibrillation Status: Acute Assessment and Plan: * failed rate control measures with IV metoprolol and cardizem * s/p dC cardioversion with return with brief return to NSR * on oral amiodarone and heparin gtt * Echo results noted (06/05): * left ventricular systolic function is moderately reduced, estimated at 30- 35% * left ventricular diastolic function is grade I diastolic dysfunction * mild mitral valve regurgitation * mild tricuspid valve regurgitation * estimated pulmonary arterial systolic pressure is 34 mmHg * Cardiology following (7) Influenza A: Code(s): J10.1 - Influenza due to other identified influenza virus with other respiratory manifestations Status: Acute Assessment and Plan: * positive testing in ER * on Tamiflu (8) Schizophrenia: Code(s): F20.9 - Schizophrenia, unspecified Status: Acute Assessment and Plan: * known history * unclear what medication he was taking... Discussed case with Dr. Ross Not much else to add at this time -- will continue to follow intermittently. L Subjective Date/time seen: 06/08/24 09:52 Interval history: Follow-up for acute kidney injury/acute renal failure and acute hyponatremia. Renal function/creatinine as well as sodium level continues to improve if not normalized; remains intubated/sedated and on mechanical ventilation; hemodynamically stable off vasopressor therapy; no other acute issues/events overnight or earlier this morning. Exam 2 Narrative: General: middle aged male intubated/sedated/paralyzed and on mechanical ventilation Heart:IRRR normal S1 and S2; no rub Lungs: coarse breath sounds with scattered rales Abdomen: soft, nontender, nondistended, decreased bowel sounds Extremities: no cyanosis or clubbing; no edema Skin: no rash Objective Data Vital Signs Vital Signs: Vital Signs Temp Pulse Resp BP Pulse Ox O2 Del Method FiO2 06/08/24 08:51 89 23 H 06/08/24 08:50 91 23 H 06/08/24 08:15 90 97 Mechanical Ventilation 40 06/08/24 08:08 81 06/08/24 08:07 80 28 H 06/08/24 08:06 80 26 H 06/08/24 08:00 40 06/08/24 08:00 80 06/08/24 08:00 80 26 H 100 Mechanical Ventilation 40 06/08/24 08:00 99.5 F 81 23 H 124/70 98 06/08/24 07:15 80 32 H 06/08/24 07:05 77 33 H 06/08/24 07:05 77 99 Mechanical Ventilation 40 06/08/24 06:00 79 28 H 06/08/24 06:00 79 28 H 06/08/24 06:00 99.1 F 80 24 H 126/76 98 06/08/24 06:00 79 06/08/24 05:04 77 98 Mechanical Ventilation 40 06/08/24 04:30 40 06/08/24 04:25 81 28 H 98 Mechanical Ventilation 40 06/08/24 04:06 98.8 F 81 28 H 124/73 98 06/08/24 04:00 88 06/08/24 04:00 79 28 H 06/08/24 04:00 79 28 H 06/08/24 03:54 81 31 H 06/08/24 03:53 81 31 H 06/08/24 03:00 81 97 Mechanical Ventilation 40 06/08/24 03:00 82 28 H 06/08/24 02:39 79 30 H 06/08/24 02:38 79 32 H 06/08/24 02:00 98.6 F 81 28 H 121/70 99 06/08/24 02:00 76 28 H 06/08/24 02:00 78 28 H 06/08/24 02:00 98.7 F 76 28 H 121/70 99 06/08/24 02:00 76 06/08/24 00:20 84 37 H 06/08/24 00:19 86 37 H 06/08/24 00:04 84 100 Mechanical Ventilation 40 06/08/24 00:00 98.2 F 84 14 118/64 99 06/08/24 00:00 83 06/08/24 00:00 84 28 H 06/08/24 00:00 83 28 H 06/07/24 23:43 40 06/07/24 23:35 74 28 H 98 Mechanical Ventilation 40 06/07/24 23:06 80 32 H 06/07/24 22:00 98.5 F 83 26 H 118/55 L 99 06/07/24 22:00 83 28 H 06/07/24 22:00 84 28 H 06/07/24 22:00 82 06/07/24 21:52 83 32 H 06/07/24 20:55 80 99 Mechanical Ventilation 40 06/07/24 20:53 81 28 H 06/07/24 20:15 40 06/07/24 20:05 83 06/07/24 20:00 84 06/07/24 20:00 83 28 H 06/07/24 20:00 83 28 H 06/07/24 20:00 83 32 H 98 Mechanical Ventilation 40 06/07/24 20:00 98.3 F 83 32 H 117/59 L 98 06/07/24 18:12 94 98 Mechanical Ventilation 40 06/07/24 18:00 92 28 H 130/60 98 06/07/24 18:00 93 06/07/24 16:00 93 29 H 100 Mechanical Ventilation 40 06/07/24 16:00 89 28 H 06/07/24 16:00 91 28 H 06/07/24 16:00 76 29 H 124/57 L 06/07/24 16:00 97.9 F 95 28 H 124/57 L 97 06/07/24 16:00 40 06/07/24 16:00 95 06/07/24 15:27 87 28 H 06/07/24 15:26 90 28 H 06/07/24 15:09 89 28 H 06/07/24 15:03 90 97 Mechanical Ventilation 40 06/07/24 14:52 82 28 H 06/07/24 14:00 88 28 H 125/70 06/07/24 14:00 98.7 F 86 27 H 125/70 100 06/07/24 14:00 82 Intake/Output Intake/Output: Intake & Output 06/05/24 06/06/24 06/07/2428/25 23:59 23:59 23:59 23:59 Intake Total 3171.1 2863.9 2655.5 2075.6 Output Total 1075 2575 5025 1050 Balance 2096.1 288.9 -2369.5 1025.6 Meds/Results Medications: Active Medications Generic Name Dose Route Start Last Admin Trade Name Freq PRN Reason Stop Dose Admin Acetaminophen 650 mg 06/03/24 13:56 Acetaminophen Elixir 325 Mg/10.15 Ml Udc FEED TUBE Q4H PRN Fever Albuterol/Ipratropium 3 ml 06/03/24 13:50 Ipratropium 0.5 Mg/Albuterol Sulfate 2.5 Mg Ampul.Neb 3 Ml INHALATION Q6HRT PRN Wheezng Albuterol/Ipratropium 3 ml 06/03/24 20:00 06/08/24 07:05 Ipratropium 0.5 Mg/Albuterol Sulfate 2.5 Mg Ampul.Neb 3 Ml INHALATION 3 ml Q6HRT ARABELLA Administration Amiodarone HCl 400 mg 06/06/24 09:40 06/08/24 08:08 Amiodarone Hcl 200 Mg Tablet PO 06/13/24 09:39 400 mg Q12HR ARABELLA Administration Amiodarone HCl 200 mg 06/14/24 08:00 Amiodarone Hcl 200 Mg Tablet PO DAILY@0800 ARABELLA Dextrose 12.5 gm 06/03/24 13:46 Dextrose 50% 25 Gm/50 Ml Syringe IV PUSH PRN PRN Hypoglycemia Protocol Glucagon 1 mg 06/03/24 13:46 Glucagon For Inj 1 Mg Vial IM PRN PRN Hypoglycemia Protocol Glucose 15 gm 06/03/24 13:46 Glucose Oral Gel 15 Gm Of Glucse In 37.5 Gm Tube PO PRN PRN Hypoglycemia Protocol Heparin Sodium (Porcine) 6,000 units 06/03/24 12:33 06/04/24 23:06 Heparin Sodium 5,000 Units/Ml Vial IV PUSH 6,000 units PRN PRN Administration aPTT less than 55 seconds Heparin Sodium (Porcine) 3,000 units 06/03/24 12:33 06/06/24 05:43 Heparin Sodium 5,000 Units/Ml Vial IV PUSH 3,000 units PRN PRN Administration aPTT 55 - 70 seconds Hydrocortisone Sodium Succinate 100 mg 06/03/24 22:00 06/08/24 05:47 Hydrocortisone Sodium Succinate 100 Mg/2 Ml Vial IV PUSH 100 mg Q8HR ARABELLA Administration Heparin Sodium/Dextrose 25,000 units in 250 mls @ 24 mls/hr 06/03/24 12:35 06/08/24 09:36 Heparin Sodium/D5w 100 Units/Ml IV CONT 2,400 units/hr .[id number] ARABELLA 24 mls/hr Titration Protocol 2,400 UNITS/HR Dextrose 1,000 mls @ 100 mls/hr 06/03/24 13:46 Dextrose 5% 1,000 Ml IVPB PRN PRN Hypoglycemia Protocol Fentanyl Citrate 2,500 mcg in 250 mls @ 15 mls/hr 06/03/24 13:50 06/08/24 11:45 Fentanyl 2,500 Mcg/Ns 250 Ml IV CONT 125 mcg/hr .[id number] ARABELLA 12.5 mls/hr Titration Protocol 150 MCG/HR Midazolam HCl 100 mg in 100 mls @ 6 mls/hr 06/03/24 13:50 06/08/24 11:45 Versed 100 Mg/Ns 100 Ml IV CONT 5 mg/hr .[id number] ARAEBLLA 5 mls/hr Titration Protocol 6 MG/HR Doxycycline Hyclate 100 mg in 100 mls @ 100 mls/hr 06/03/24 16:00 06/08/24 04:55 Vibramycin 100 Mg/Ns 100 Ml IVPB 06/08/24 15:59 Infused Q12H ARABELLA Infusion Norepinephrine Bitartrate 8 mg in 250 mls @ 0 mls/hr 06/03/24 17:50 06/06/24 17:43 Levophed 8 Mg/D5w 250 Ml IV CONT Infused .Q0M ARABELLA Titration Protocol 0 MCG/MIN Cefepime HCl 2 gm in 50 mls @ 100 mls/hr 06/04/24 15:00 06/08/24 04:26 Maxipime 2 Gm/Ns 50 Ml IVPB Infused Q12H ARABELLA Infusion Micafungin Sodium 100 mg/ 100 mls @ 100 mls/hr 06/08/24 09:00 06/08/24 08:08 Sodium Chloride IVPB 100 mls/hr DAILY ARABELLA Administration Vancomycin HCl 1,500 mg in 500 mls @ 250 mls/hr 06/09/24 04:00 Vancomycin 1,500 Mg/Ns 500 Ml IVPB Q18H [facility] Insulin Aspart 3 - 6 units 06/03/24 18:00 06/08/24 12:35 Insulin Aspart (*Bkc) 100 Units/Ml SUB-Q Not Given Q6HR [facility] Protocol Midazolam HCl 2 mg 06/03/24 13:48 06/03/24 16:40 Midazolam Hcl (*Crx) 2 Mg/2 Ml Vial IV PUSH 2 mg Q5M PRN Administration ventilator asynchrony Miscellaneous Information 0 each 06/08/24 00:01 Ivs In Normal Saline (If Possible) XX 07/08/24 00:00 CLARIFY ARABELLA Multi-Ingred Cream/Lotion/Oil/Oint 1 applic 06/03/24 14:00 06/08/24 08:08 Mineral Oil/White Petrolatum Ointment EACH EYE 1 applic Q12HR ARABELLA Administration Oseltamivir Phosphate 30 mg 06/04/24 09:00 06/08/24 08:11 Oseltamivir Phosphate Oral Susp 30 Mg/5 Ml Syringe FEED TUBE 06/09/24 08:59 30 mg Q12HR ARABELLA Administration Pantoprazole Sodium 40 mg 06/04/24 09:00 06/08/24 08:09 Pantoprazole Sodium Iv 40 Mg Vial IV PUSH 40 mg QAM ARABELLA Administration Sodium Chloride 10 ml 06/03/24 22:00 06/08/24 05:47 Central Line Flush IV PUSH 10 ml Q8HR ARABELLA Administration Sodium Chloride 20 ml 06/03/24 19:36 Central Line Flush IV PUSH PRN PRN after blood draws Radiology Results: ITS Impressions Chest/Abdomen/Pelvis CT 06/03/24 17:44 IMPRESSION: Dense bilateral pulmonary infiltrates. Loculated dense effusion within the left upper lobe, similar to what one might see with an adjacent fracture. Although, significant respiratory artifact renders this evaluation limited. Perhaps once adequate resuscitation has been performed and lung findings are improving repeat imaging may be attempted with intravenous contrast, in order to evaluate for the presence or absence of acute traumatic injury. Hepatosplenomegaly. Free fluid within the deep pelvis, never a normal finding in a male patient. Abdomen Ultrasound 06/05/24 08:52 IMPRESSION: 1. Small volume of ascites. Chest X-Ray 06/08/24 06:46 Impression: 1: Persistent bilateral airspace disease which is not significantly changed allowing for technique, consistent with edema versus pneumonia. Labs Labs: Laboratory Tests 06/08/24 05:07 06/08/24 05:07 Calcium 8.1 L Phosphorus 2.5 Magnesium 2.9 H Total Bilirubin 0.6 AST 102 H ALT 48 Alkaline Phosphatase 73 Total Protein 6.0 L Albumin 2.6 L Urine PEP Interpret Microbiology 06/06/24 08:18 Blood Blood Culture - Preliminary Yeast Present Gram positive cocci cluster is 06/06/24 08:18 Blood Blood Culture - Preliminary
[2024-06-08 11:49] LABS: Glucose Point of Care 194 mg/dl (65-105)
--- NOTE | 2024-06-08 14:11 | P.PNINT_ITS ---
Progress Note: A&P Assessment and Plan (1) Acute respiratory failure: Code(s): J96.00 - Acute respiratory failure, unspecified whether with hypoxia or hypercapnia Status: Acute Assessment and Plan: Acute respiratory failure secondary to pneumonia -06/03: intubated in the ER -patient remains on CMV mode of ventilation, peep of 12 and 50% FiO2 this morning -06/03: Patient was proned for approximately 20 hours - chest x-ray this morning: Persistent bilateral airspace disease which is not significantly changed allowing for technique, consistent with edema versus pneumonia.. -influenza A positive -negative for COVID, RSV -urine Legionella negative -urine pneumococcal antigen positive -mycoplasma pneumonia pending -continue bronchodilators -sedated with fentanyl, Versed. Off Nimbex since 06/06. Will start weaning sedation to evaluate neurological status 06/03/2024: CT chest, abdomen, pelvis IMPRESSION: Dense bilateral pulmonary infiltrates. Loculated dense effusion within the left upper lobe, similar to what one might see with an adjacent fracture. Although, significant respiratory artifact renders this evaluation limited. Perhaps once adequate resuscitation has been performed and lung findings are improving repeat imaging may be attempted with intravenous contrast, in order to evaluate for the presence or absence of acute traumatic injury. Hepatosplenomegaly. Free fluid within the deep pelvis, never a normal finding in a male patient. (2) Septic shock: Code(s): A41.9 - Sepsis, unspecified organism; R65.21 - Severe sepsis with septic shock Status: Acute Assessment and Plan: Patient with hypotension, refractory to IV fluids, -etiology likely related to pneumonia, UA was unremarkable -patient received adequate amount of IV fluids -06/03: blood cultures growing -Streptococcus pneumonia 2/2 bottles -lactic acid has normalized -continue cefepime and doxycycline (06/03) -06/06: Will discontinue vancomycin since as strep pneumo was pansensitive -currently OFF Levophed and vasopressin -Continue to maintain MAP > 65 mm Hg or SBP > 100 mm Hg -weaning stress dose steroids (06/03) -06/06: Repeat blood cultures growing yeast and Gram-positive cocci in clusters 1/2 bottles, could be contamination -06/08: Start patient on micafungin and vancomycin, will repeat blood cultures (3) Pneumonia: Code(s): J18.9 - Pneumonia, unspecified organism Status: Acute Assessment and Plan: See above (4) Hyponatremia: Code(s): E87.1 - Hypo-osmolality and hyponatremia Status: Acute Assessment and Plan: Hyponatremia with sodium levels of 117 on admission Etiology is not clear at this point in this could be secondary to excessive water intake. This could also be secondary to SIADH, congestive heart failure, SSRI, increased water intake -patient received adequate IV fluids -could will discontinue maintenance IV fluids, discussed with Nephrology -nephrology following the patient and appreciate the evaluation and recommendations -sodium levels have normalized continue to monitor sodium levels (5) SABA (acute kidney injury): Code(s): N17.9 - Acute kidney failure, unspecified Status: Acute Assessment and Plan: Baseline creatinine unknown Presented with creatinine of 1.5 for which could be secondary to sepsis and hypovolemia Status post IV fluids Appreciate nephrology following the patient 06/03: CTA chest abdomen pelvis did not show any hydronephrosis renal calculi Jimenez in place, urine output has been low Urine lytes reflective of prerenal picture, patient has had adequate IV fluids, now in ARDS, -continue to monitor urine output, electrolytes and renal function -06/07: Significant urine output yesterday and overnight -continues to have good urine output, possible polyuric phase of ATN -nephrology following (6) Atrial fibrillation with RVR: Code(s): I48.91 - Unspecified atrial fibrillation Status: Acute Assessment and Plan: Status post DC cardioversion in ER. Currently on heparin infusion. -appreciate cardiology evaluation and recommendations -patient received amiodarone bolus x2, now on amiodarone at 0.5 mg/min -off pressors -switched amiodarone infusion to p.o. amiodarone per Cardiology recommendations 06/05/2024: Echocardiogram Summary 1. Left ventricular chamber dimension is normal. 2. Left ventricular systolic function is moderately reduced, estimated at 30-35%. 3. There is mildly increased left ventricular wall thickness. 4. The left ventricular diastolic function is grade I diastolic dysfunction. 5. Right ventricular systolic function is normal. 6. There is mild mitral valve regurgitation. 7. There is mild tricuspid valve regurgitation. 8. Estimated pulmonary arterial systolic pressure is 34 mmHg. (7) Elevated brain natriuretic peptide (BNP) level: Code(s): R79.89 - Other specified abnormal findings of blood chemistry Status: Acute Assessment and Plan: Patient has elevated BNP of 4190, although no evidence of volume overload from exam CT chest showed multifocal pneumonia Echocardiogram was above Cautious IV fluid (8) Hypertension: Code(s): I10 - Essential (primary) hypertension Status: Acute Assessment and Plan: Hold all antihypertensives as patient chest came of pressors (9) Influenza A: Code(s): J10.1 - Influenza due to other identified influenza virus with other respiratory manifestations Status: Acute Assessment and Plan: Patient was tested positive for influenza A, on Tamiflu (10) Schizophrenia: Code(s): F20.9 - Schizophrenia, unspecified Status: Acute Assessment and Plan: History of schizophrenia and other behavior issues Unknown if he takes any medications Plan DVT prophylaxis -heparin infusion for AFib RVR Stress ulcer prophylaxis -Protonix Nutrition: Advance tube feeds to goal Code Status -DNR Total Critical Care Time - 32 minutes Discussed with patient's father and brother updated with his condition and plan of care. I answered all questions Due to a high probability of clinically significant, life threatening deterioration, the patient required my highest level of preparedness to intervene emergently and I personally spent this critical care time directly and personally managing the patient. This critical care time included obtaining a history; examining the patient; pulse oximetry; ordering and review of studies; arranging urgent treatment with development of a management plan; evaluation of patient's response to treatment; frequent reassessment; and discussions with other providers. It was exclusive of separately billable procedures and treating other patients and teaching time. Please see Assessment and Plan section and the rest of the note for further information on patient assessment and treatment This dictation may have been done utilizing a voice recognition system. Attempts have been made to correct errors. However, there may be uncorrected grammatical, spelling, and recognitions errors present. Subjective Date/time seen: 06/08/24 14:11 Interval history: Reason for consult: Acute respiratory failure, pneumonia, bacteremia, acute kidney injury, hyponatremia, AFib RVR status post DC cardioversion 06/07/2024: Patient seen examined the ICU, remains intubated on CMV mode of ventilation, peep of 10 and 40% FiO2. Sedated with fentanyl and Versed, off Nimbex since 06/06. Patient remains off vasopressors. Adequate urine output. Tolerating tube feeds at 50 mL/hour pain LFTs trending down -patient does not open his eyes or follows commands Review of Systems Review of Systems: ROS unobtainable: Yes unobtainable due to medical condition and unobtainable due to mental status Exam Narrative: General: Intubated, sedated, in no acute distress HEENT: Pupils equal and reactive, sclera is clear Lungs/Chest: Coarse breath sounds bilaterally right worse than left, bilateral rales, decreased breath sounds at bases, otherwise adequate air entry, ETT in place Cardiac: Irregularly irregular, normal rate Circulation: Pedal pulses are intact and symmetrical. Abdomen: Soft, nontender, nondistended, hypoactive bowel sounds Extremities: 1+ edema bilateral lower extremities : Jimenez in place Neurologic: Intubated, sedated, does not open his eyes or follows simple commands Skin: No skin lesions or rash noted Objective Data Vital Signs Vital Signs: Vital Signs - 24 hr 06/07/24 14:52 06/07/24 15:03 06/07/24 15:09 Temperature Pulse Rate 82 90 89 Respiratory Rate 28 H 28 H Blood Pressure Pulse Oximetry 97 Oxygen Delivery Mechanical Ventilation Fraction of Inspired Oxygen 40 06/07/24 15:26 06/07/24 15:27 06/07/24 16:00 Temperature Pulse Rate 90 87 95 Respiratory Rate 28 H 28 H Blood Pressure Pulse Oximetry Oxygen Delivery Fraction of Inspired Oxygen 06/07/24 16:00 06/07/24 16:00 06/07/24 16:00 Temperature 97.9 F Pulse Rate 95 76 Respiratory Rate 28 H 29 H Blood Pressure 124/57 L 124/57 L Pulse Oximetry 97 Oxygen Delivery Fraction of Inspired Oxygen 40 06/07/24 16:00 06/07/24 16:00 06/07/24 16:00 Temperature Pulse Rate 91 89 93 Respiratory Rate 28 H 28 H 29 H Blood Pressure Pulse Oximetry 100 Oxygen Delivery Mechanical Ventilation Fraction of Inspired Oxygen 40 06/07/24 18:00 06/07/24 18:00 06/07/24 18:12 Temperature Pulse Rate 93 92 94 Respiratory Rate 28 H Blood Pressure 130/60 Pulse Oximetry 98 98 Oxygen Delivery Mechanical Ventilation Fraction of Inspired Oxygen 40 06/07/24 20:00 06/07/24 20:00 06/07/24 20:00 Temperature 98.3 F Pulse Rate 83 83 83 Respiratory Rate 32 H 32 H 28 H Blood Pressure 117/59 L Pulse Oximetry 98 98 Oxygen Delivery Mechanical Ventilation Fraction of Inspired Oxygen 40 06/07/24 20:00 06/07/24 20:00 06/07/24 20:05 Temperature Pulse Rate 83 84 83 Respiratory Rate 28 H Blood Pressure Pulse Oximetry Oxygen Delivery Fraction of Inspired Oxygen 06/07/24 20:15 06/07/24 20:53 06/07/24 20:55 Temperature Pulse Rate 81 80 Respiratory Rate 28 H Blood Pressure Pulse Oximetry 99 Oxygen Delivery Mechanical Ventilation Fraction of Inspired Oxygen 40 40 06/07/24 21:52 06/07/24 22:00 06/07/24 22:00 Temperature Pulse Rate 83 82 84 Respiratory Rate 32 H 28 H Blood Pressure Pulse Oximetry Oxygen Delivery Fraction of Inspired Oxygen 06/07/24 22:00 06/07/24 22:00 06/07/24 23:06 Temperature 98.5 F Pulse Rate 83 83 80 Respiratory Rate 28 H 26 H 32 H Blood Pressure 118/55 L Pulse Oximetry 99 Oxygen Delivery Fraction of Inspired Oxygen 06/07/24 23:35 06/07/24 23:43 06/08/24 00:00 Temperature Pulse Rate 74 83 Respiratory Rate 28 H 28 H Blood Pressure Pulse Oximetry 98 Oxygen Delivery Mechanical Ventilation Fraction of Inspired Oxygen 40 40 06/08/24 00:00 06/08/24 00:00 06/08/24 00:00 Temperature 98.2 F Pulse Rate 84 83 84 Respiratory Rate 28 H 14 Blood Pressure 118/64 Pulse Oximetry 99 Oxygen Delivery Fraction of Inspired Oxygen 06/08/24 00:04 06/08/24 00:19 06/08/24 00:20 Temperature Pulse Rate 84 86 84 Respiratory Rate 37 H 37 H Blood Pressure Pulse Oximetry 100 Oxygen Delivery Mechanical Ventilation Fraction of Inspired Oxygen 40 06/08/24 02:00 06/08/24 02:00 06/08/24 02:00 Temperature 98.7 F Pulse Rate 76 76 78 Respiratory Rate 28 H 28 H Blood Pressure 121/70 Pulse Oximetry 99 Oxygen Delivery Fraction of Inspired Oxygen 06/08/24 02:00 06/08/24 02:00 06/08/24 02:38 Temperature 98.6 F Pulse Rate 76 81 79 Respiratory Rate 28 H 28 H 32 H Blood Pressure 121/70 Pulse Oximetry 99 Oxygen Delivery Fraction of Inspired Oxygen 06/08/24 02:39 06/08/24 03:00 06/08/24 03:00 Temperature Pulse Rate 79 82 81 Respiratory Rate 30 H 28 H Blood Pressure Pulse Oximetry 97 Oxygen Delivery Mechanical Ventilation Fraction of Inspired Oxygen 40 06/08/24 03:53 06/08/24 03:54 06/08/24 04:00 Temperature Pulse Rate 81 81 79 Respiratory Rate 31 H 31 H 28 H Blood Pressure Pulse Oximetry Oxygen Delivery Fraction of Inspired Oxygen 06/08/24 04:00 06/08/24 04:00 06/08/24 04:06 Temperature 98.8 F Pulse Rate 79 88 81 Respiratory Rate 28 H 28 H Blood Pressure 124/73 Pulse Oximetry 98 Oxygen Delivery Fraction of Inspired Oxygen 06/08/24 04:25 06/08/24 04:30 06/08/24 05:04 Temperature Pulse Rate 81 77 Respiratory Rate 28 H Blood Pressure Pulse Oximetry 98 98 Oxygen Delivery Mechanical Ventilation Mechanical Ventilation Fraction of Inspired Oxygen 40 40 40 06/08/24 06:00 06/08/24 06:00 06/08/24 06:00 Temperature 99.1 F Pulse Rate 79 80 79 Respiratory Rate 24 H 28 H Blood Pressure 126/76 Pulse Oximetry 98 Oxygen Delivery Fraction of Inspired Oxygen 06/08/24 06:00 06/08/24 07:05 06/08/24 07:05 Temperature Pulse Rate 79 77 77 Respiratory Rate 28 H 33 H Blood Pressure Pulse Oximetry 99 Oxygen Delivery Mechanical Ventilation Fraction of Inspired Oxygen 40 06/08/24 07:15 06/08/24 08:00 06/08/24 08:00 Temperature 99.5 F Pulse Rate 80 81 80 Respiratory Rate 32 H 23 H 26 H Blood Pressure 124/70 Pulse Oximetry 98 100 Oxygen Delivery Mechanical Ventilation Fraction of Inspired Oxygen 40 06/08/24 08:00 06/08/24 08:00 06/08/24 08:06 Temperature Pulse Rate 80 80 Respiratory Rate 26 H Blood Pressure Pulse Oximetry Oxygen Delivery Fraction of Inspired Oxygen 40 06/08/24 08:07 06/08/24 08:08 06/08/24 08:15 Temperature Pulse Rate 80 81 90 Respiratory Rate 28 H Blood Pressure Pulse Oximetry 97 Oxygen Delivery Mechanical Ventilation Fraction of Inspired Oxygen 40 06/08/24 08:50 06/08/24 08:51 06/08/24 10:00 Temperature 99.3 F Pulse Rate 91 89 75 Respiratory Rate 23 H 23 H 26 H Blood Pressure 129/66 Pulse Oximetry 99 Oxygen Delivery Fraction of Inspired Oxygen 06/08/24 10:00 06/08/24 10:35 06/08/24 11:45 Temperature Pulse Rate 79 76 89 Respiratory Rate 28 H Blood Pressure Pulse Oximetry 98 Oxygen Delivery Mechanical Ventilation Fraction of Inspired Oxygen 40 06/08/24 11:45 06/08/24 12:00 06/08/24 12:00 Temperature 99.1 F Pulse Rate 87 75 92 Respiratory Rate 28 H 26 H Blood Pressure 141/87 H Pulse Oximetry 98 Oxygen Delivery Fraction of Inspired Oxygen 06/08/24 12:00 06/08/24 12:00 06/08/24 13:05 Temperature Pulse Rate 77 78 Respiratory Rate 26 H Blood Pressure Pulse Oximetry 98 98 Oxygen Delivery Mechanical Ventilation Mechanical Ventilation Fraction of Inspired Oxygen 40 40 40 06/08/24 13:05 06/08/24 13:15 06/08/24 13:37 Temperature Pulse Rate 78 76 76 Respiratory Rate 26 H 26 H 28 H Blood Pressure Pulse Oximetry Oxygen Delivery Fraction of Inspired Oxygen 06/08/24 13:37 Temperature Pulse Rate 76 Respiratory Rate 27 H Blood Pressure Pulse Oximetry Oxygen Delivery Fraction of Inspired Oxygen Intake/Output Intake/Output: Intake & Output 06/05/24 06/06/24 06/07/24 06/08/24 23:59 23:59 23:59 23:59 Intake Total 3171.1 2863.9 2655.5 2192.6 Output Total 1075 2575 5025 1050 Balance 2096.1 288.9 -2369.5 1142.6 Meds/Results Medications: Active Medications Generic Name Dose Route Start Last Admin Trade Name Freq PRN Reason Stop Dose Admin Acetaminophen 650 mg 06/03/24 13:56 Acetaminophen Elixir 325 Mg/10.15 Ml Udc FEED TUBE Q4H PRN Fever Albuterol/Ipratropium 3 ml 06/03/24 13:50 Ipratropium 0.5 Mg/Albuterol Sulfate 2.5 Mg Ampul.Neb 3 Ml INHALATION Q6HRT PRN Wheezng Albuterol/Ipratropium 3 ml 06/03/24 20:00 06/08/24 13:05 Ipratropium 0.5 Mg/Albuterol Sulfate 2.5 Mg Ampul.Neb 3 Ml INHALATION 3 ml Q6HRT ARABELLA Administration Amiodarone HCl 400 mg 06/06/24 09:40 06/08/24 08:08 Amiodarone Hcl 200 Mg Tablet PO 06/13/24 09:39 400 mg Q12HR ARABELLA Administration Amiodarone HCl 200 mg 06/14/24 08:00 Amiodarone Hcl 200 Mg Tablet PO DAILY@0800 ARABELLA Dextrose 12.5 gm 06/03/24 13:46 Dextrose 50% 25 Gm/50 Ml Syringe IV PUSH PRN PRN Hypoglycemia Protocol Glucagon 1 mg 06/03/24 13:46 Glucagon For Inj 1 Mg Vial IM PRN PRN Hypoglycemia Protocol Glucose 15 gm 06/03/24 13:46 Glucose Oral Gel 15 Gm Of Glucse In 37.5 Gm Tube PO PRN PRN Hypoglycemia Protocol Heparin Sodium (Porcine) 6,000 units 06/03/24 12:33 06/04/24 23:06 Heparin Sodium 5,000 Units/Ml Vial IV PUSH 6,000 units PRN PRN Administration aPTT less than 55 seconds Heparin Sodium (Porcine) 3,000 units 06/03/24 12:33 06/06/24 05:43 Heparin Sodium 5,000 Units/Ml Vial IV PUSH 3,000 units PRN PRN Administration aPTT 55 - 70 seconds Hydrocortisone Sodium Succinate 100 mg 06/03/24 22:00 06/08/24 13:31 Hydrocortisone Sodium Succinate 100 Mg/2 Ml Vial IV PUSH 100 mg Q8HR ARABELLA Administration Heparin Sodium/Dextrose 25,000 units in 250 mls @ 24 mls/hr 06/03/24 12:35 06/08/24 13:30 Heparin Sodium/D5w 100 Units/Ml IV CONT 2,400 units/hr .[id number] ARABELLA 24 mls/hr Administration Protocol 2,400 UNITS/HR Dextrose 1,000 mls @ 100 mls/hr 06/03/24 13:46 Dextrose 5% 1,000 Ml IVPB PRN PRN Hypoglycemia Protocol Fentanyl Citrate 2,500 mcg in 250 mls @ 10 mls/hr 06/03/24 13:50 06/08/24 13:37 Fentanyl 2,500 Mcg/Ns 250 Ml IV CONT 100 mcg/hr .Q25H ARABELLA 10 mls/hr Titration Protocol 100 MCG/HR Midazolam HCl 100 mg in 100 mls @ 4 mls/hr 06/03/24 13:50 06/08/24 13:37 Versed 100 Mg/Ns 100 Ml IV CONT 4 mg/hr .Q25H ARABELLA 4 mls/hr Titration Protocol 4 MG/HR Doxycycline Hyclate 100 mg in 100 mls @ 100 mls/hr 06/03/24 16:00 06/08/24 04:55 Vibramycin 100 Mg/Ns 100 Ml IVPB 06/08/24 15:59 Infused Q12H ARABELLA Infusion Norepinephrine Bitartrate 8 mg in 250 mls @ 0 mls/hr 06/03/24 17:50 06/06/24 17:43 Levophed 8 Mg/D5w 250 Ml IV CONT Infused .Q0M ARABELLA Titration Protocol 0 MCG/MIN Cefepime HCl 2 gm in 50 mls @ 100 mls/hr 06/04/24 15:00 06/08/24 04:26 Maxipime 2 Gm/Ns 50 Ml IVPB Infused Q12H ARABELLA Infusion Micafungin Sodium 100 mg/ 100 mls @ 100 mls/hr 06/08/24 09:00 06/08/24 08:08 Sodium Chloride IVPB 100 mls/hr DAILY ARABELLA Administration Vancomycin HCl 1,500 mg in 500 mls @ 250 mls/hr 06/09/24 04:00 Vancomycin 1,500 Mg/Ns 500 Ml IVPB Q18H ARABELLA Insulin Aspart 3 - 6 units 06/03/24 18:00 06/08/24 12:35 Insulin Aspart (*Bkc) 100 Units/Ml SUB-Q Not Given Q6HR [facility] Protocol Midazolam HCl 2 mg 06/03/24 13:48 06/03/24 16:40 Midazolam Hcl (*Crx) 2 Mg/2 Ml Vial IV PUSH 2 mg Q5M PRN Administration ventilator asynchrony Miscellaneous Information 0 each 06/08/24 00:01 Ivs In Normal Saline (If Possible) XX 07/08/24 00:00 CLARIFY ARABELLA Multi-Ingred Cream/Lotion/Oil/Oint 1 applic 06/03/24 14:00 06/08/24 08:08 Mineral Oil/White Petrolatum Ointment EACH EYE 1 applic Q12HR ARABELLA Administration Oseltamivir Phosphate 30 mg 06/04/24 09:00 06/08/24 08:11 Oseltamivir Phosphate Oral Susp 30 Mg/5 Ml Syringe FEED TUBE 06/09/24 08:59 30 mg Q12HR ARABELLA Administration Pantoprazole Sodium 40 mg 06/04/24 09:00 06/08/24 08:09 Pantoprazole Sodium Iv 40 Mg Vial IV PUSH 40 mg QAM ARABELLA Administration Sodium Chloride 10 ml 06/03/24 22:00 06/08/24 13:31 Central Line Flush IV PUSH 10 ml Q8HR ARABELLA Administration Sodium Chloride 20 ml 06/03/24 19:36 Central Line Flush IV PUSH PRN PRN after blood draws Radiology Results: ITS Impressions Chest/Abdomen/Pelvis CT 06/03/24 17:44 IMPRESSION: Dense bilateral pulmonary infiltrates. Loculated dense effusion within the left upper lobe, similar to what one might see with an adjacent fracture. Although, significant respiratory artifact renders this evaluation limited. Perhaps once adequate resuscitation has been performed and lung findings are improving repeat imaging may be attempted with intravenous contrast, in order to evaluate for the presence or absence of acute traumatic injury. Hepatosplenomegaly. Free fluid within the deep pelvis, never a normal finding in a male patient. Abdomen Ultrasound 06/05/24 08:52 IMPRESSION: 1. Small volume of ascites. Chest X-Ray 06/08/24 06:46 Impression: 1: Persistent bilateral airspace disease which is not significantly changed allowing for technique, consistent with edema versus pneumonia. Labs Labs: Laboratory Results - last 24 hr 06/05/24 06/07/24 06/07/24 03:25 15:24 18:38 WBC RBC Hgb Hct MCV MCH MCHC RDW Plt Count MPV Immature Gran % (Auto) Neut % (Auto) Lymph % (Auto) Real % (Auto) Eos % (Auto) Baso % (Auto) Lymph # (Auto) Real # (Auto) Eos # (Auto) Baso # (Auto) Abs Immat Gran (auto) Absolute Neuts (auto) Absolute Nucleated RBC Total Counted Neutrophils % (Manual) Band Neutrophils % Lymphocytes % (Manual) Monocytes % (Manual) Nucleated RBC % Abs Neuts (Manual) Abs Lymphs (Manual) Abs Monocytes (Manual) Platelet Estimate Schistocytes APTT 112.8 H Puncture Site ABG pH ABG pCO2 ABG pO2 ABG PO2/FiO2 Ratio ABG HCO3 ABG O2 Saturation ABG O2 Content ABG Base Excess A-a Gradient Oxyhemoglobin Carboxyhemoglobin Methemoglobin Reduced Hemoglobin Total Hemoglobin O2 Delivery Device O2 Liters/Min Minute Volume Vent Rate Vent Mode FiO2 Tidal Volume PEEP Peak Inspir Pressure Pressure Support Sodium 134 L Potassium Chloride Carbon Dioxide Anion Gap BUN Creatinine Estim Creat Clear Calc Estimated GFR Glucose POC Capillary Glucose Calcium Phosphorus Magnesium Total Bilirubin AST ALT Alkaline Phosphatase Total Protein Albumin Urine Albumin 21 U Hgtkz-1-Cqzkwaja 34 U Fcluc-3-Nmodpebo 15 U Beta Globulin 22 U Gamma Globulin 9 Urine PEP Interpret See note 06/07/24 06/07/24 06/08/24 18:39 23:09 01:03 WBC RBC Hgb Hct MCV MCH MCHC RDW Plt Count MPV Immature Gran % (Auto) Neut % (Auto) Lymph % (Auto) Real % (Auto) Eos % (Auto) Baso % (Auto) Lymph # (Auto) Real # (Auto) Eos # (Auto) Baso # (Auto) Abs Immat Gran (auto) Absolute Neuts (auto) Absolute Nucleated RBC Total Counted Neutrophils % (Manual) Band Neutrophils % Lymphocytes % (Manual) Monocytes % (Manual) Nucleated RBC % Abs Neuts (Manual) Abs Lymphs (Manual) Abs Monocytes (Manual) Platelet Estimate Schistocytes APTT 78.1 H Puncture Site ABG pH ABG pCO2 ABG pO2 ABG PO2/FiO2 Ratio ABG HCO3 ABG O2 Saturation ABG O2 Content ABG Base Excess A-a Gradient Oxyhemoglobin Carboxyhemoglobin Methemoglobin Reduced Hemoglobin Total Hemoglobin O2 Delivery Device O2 Liters/Min Minute Volume Vent Rate Vent Mode FiO2 Tidal Volume PEEP Peak Inspir Pressure Pressure Support Sodium Potassium Chloride Carbon Dioxide Anion Gap BUN Creatinine Estim Creat Clear Calc Estimated GFR Glucose POC Capillary Glucose 199 H 251 H Calcium Phosphorus Magnesium Total Bilirubin AST ALT Alkaline Phosphatase Total Protein Albumin Urine Albumin U Xaxpi-7-Jnyjbepm U Lstcd-5-Vtjmruct U Beta Globulin U Gamma Globulin Urine PEP Interpret 06/08/24 06/08/24 06/08/24 04:57 05:07 08:58 WBC 16.5 H RBC 2.86 L Hgb 8.9 L Hct 26.0 L MCV 90.9 MCH 31.1 MCHC 34.2 RDW 13.7 Plt Count 220 MPV 9.5 Immature Gran % (Auto) Not Reportable Neut % (Auto) Not Reportable Lymph % (Auto) Not Reportable Real % (Auto) Not Reportable Eos % (Auto) Not Reportable Baso % (Auto) Not Reportable Lymph # (Auto) Not Reportable Real # (Auto) Not Reportable Eos # (Auto) Not Reportable Baso # (Auto) Not Reportable Abs Immat Gran (auto) Not Reportable Absolute Neuts (auto) Not Reportable Absolute Nucleated RBC Not Reportable Total Counted 100 Neutrophils % (Manual) 82 H Band Neutrophils % 9 H Lymphocytes % (Manual) 5 L Monocytes % (Manual) 4 Nucleated RBC % Not Reportable Abs Neuts (Manual) 15.01 H Abs Lymphs (Manual) 0.82 L Abs Monocytes (Manual) 0.66 Platelet Estimate Adequate Schistocytes None seen APTT 93.4 H Puncture Site Right radial ABG pH 7.499 H ABG pCO2 39.6 ABG pO2 100.6 H ABG PO2/FiO2 Ratio 2.51 ABG HCO3 30.1 H ABG O2 Saturation 98.0 ABG O2 Content 15.5 L ABG Base Excess 6.5 A-a Gradient 139.1 Oxyhemoglobin 97.4 Carboxyhemoglobin 0.3 Methemoglobin 0.2 Reduced Hemoglobin 2.1 Total Hemoglobin 11.2 L O2 Delivery Device Ventilator O2 Liters/Min Not Reportable Minute Volume Not Reportable Vent Rate 28 Vent Mode Cmv FiO2 40 Tidal Volume 450 PEEP 10 Peak Inspir Pressure Not Reportable Pressure Support Not Reportable Sodium 138 Potassium 4.0 Chloride 100 Carbon Dioxide 32 H Anion Gap 6 BUN 74 H Creatinine 1.22 Estim Creat Clear Calc 62 Estimated GFR > 60 Glucose 183 H POC Capillary Glucose Calcium 8.1 L Phosphorus 2.5 Magnesium 2.9 H Total Bilirubin 0.6 AST 102 H ALT 48 Alkaline Phosphatase 73 Total Protein 6.0 L Albumin 2.6 L Urine Albumin U Fdpsw-2-Ujjzoswf U Qwdpy-8-Kkdddjkq U Beta Globulin U Gamma Globulin Urine PEP Interpret 06/08/24 11:47 WBC RBC Hgb Hct MCV MCH MCHC RDW Plt Count MPV Immature Gran % (Auto) Neut % (Auto) Lymph % (Auto) Real % (Auto) Eos % (Auto) Baso % (Auto) Lymph # (Auto) Real # (Auto) Eos # (Auto) Baso # (Auto) Abs Immat Gran (auto) Absolute Neuts (auto) Absolute Nucleated RBC Total Counted Neutrophils % (Manual) Band Neutrophils % Lymphocytes % (Manual) Monocytes % (Manual) Nucleated RBC % Abs Neuts (Manual) Abs Lymphs (Manual) Abs Monocytes (Manual) Platelet Estimate Schistocytes APTT Puncture Site ABG pH ABG pCO2 ABG pO2 ABG PO2/FiO2 Ratio ABG HCO3 ABG O2 Saturation ABG O2 Content ABG Base Excess A-a Gradient Oxyhemoglobin Carboxyhemoglobin Methemoglobin Reduced Hemoglobin Total Hemoglobin O2 Delivery Device O2 Liters/Min Minute Volume Vent Rate Vent Mode FiO2 Tidal Volume PEEP Peak Inspir Pressure Pressure Support Sodium Potassium Chloride Carbon Dioxide Anion Gap BUN Creatinine Estim Creat Clear Calc Estimated GFR Glucose POC Capillary Glucose 194 H Calcium Phosphorus Magnesium Total Bilirubin AST ALT Alkaline Phosphatase Total Protein Albumin Urine Albumin U Oenol-0-Ajgnqovf U Kulyp-4-Tybxrgbw U Beta Globulin U Gamma Globulin Urine PEP Interpret Quality VTE Prophylaxis VTE prophylaxis: pharmacologic ordered (currently on heparin drip)
[2024-06-08 16:12] LABS: Partial Thromboplastin Time 124.6 Seconds (22.3-36.8)
[2024-06-08 17:23] LABS: Mycoplasma IgM Antibody Titer 30 U/mL
[2024-06-08] MEDS: MIDAZOLAM 100MG/NS 100ML(*CRX) 100 MG/100 ML BAG IV CONT (17:57)
[2024-06-08] MEDS: INSULIN ASPART (*BKC) 100 UNITS/ML SUB-Q (19:00)
[2024-06-08 19:14] LABS: Glucose Point of Care 226 mg/dl (65-105)
--- NOTE | 2024-06-08 19:22 | P.PNIM_ITS ---
Progress Note: A&P Assessment and Plan (1) Acute respiratory failure: Code(s): J96.00 - Acute respiratory failure, unspecified whether with hypoxia or hypercapnia Status: Acute Assessment and Plan: Acute respiratory failure secondary to pneumonia and influenza -06/03: intubated in the ER and patient was proned for approximately 20 hours Influenza A positive; negative for COVID, RSV Urine Legionella Ag, pneumococcal Ag and mycoplasma IgM pending CT Chest/Abd/Pelvis 06/03: * Dense bilateral pulmonary infiltrates with loculated dense effusion within the left upper lobe, similar to what one might see with an adjacent fracture. Although, significant respiratory artifact renders this evaluation limited.Perhaps once adequate resuscitation has been performed and lung findings are improving repeat imaging may be attempted with intravenous contrast, in order to evaluate for the presence or absence of acute traumatic injury. * Hepatosplenomegaly. * Free fluid within the deep pelvis, never a normal finding in a male patient. CXR showing bilateral airspace disease Sedated with fentanyl, Versed. Off Nimbex on 06/06 WBC and Bandemia better ABG noted. Vent management per [facility] consultant. (2) Septic shock: Code(s): A41.9 - Sepsis, unspecified organism; R65.21 - Severe sepsis with septic shock Status: Acute Assessment and Plan: Patient was hypotension refractory to IV fluids so pressors started. Etiology likely related to sespsis from pneumonia Patient received adequate amount of IV fluids BCx 06/03: Streptococcus pneumonia 05/13 bottles Lactic acid has normalized Currently off Levophed (06/05) and vasopressin (06/06) Repeat BCx 06/06: growing Yeast and Gram positive cocci; 2nd set pending Echo 06/05 with EF 30-35%, grade I diastolic dysfxn, mild valve disease and PASP 34. Continue to maintain MAP > 65 mm Hg or SBP > 100 mm Hg Continue vancomycin cefepime and doxycycline (06/03) Continue stress dose steroids (06/03) Micafungin added (06/08) Will need MAGGIE. Consider repeat CT scanning (3) Fungemia: Code(s): B49 - Unspecified mycosis Status: Acute Assessment and Plan: As above. Etiology unclear. Consider fungal PNA. HIV was negative on 06/03 (4) Pneumonia: Code(s): J18.9 - Pneumonia, unspecified organism Status: Acute Assessment and Plan: See above (5) Hyponatremia: Code(s): E87.1 - Hypo-osmolality and hyponatremia Status: Acute Assessment and Plan: Hyponatremia with sodium levels of 117 on admission. Etiology not clear but consider excessive water intake, PNA, pain, SIADH, CHF and/or SSRI Patient received adequate IV fluids Na level was climbing slowly but jumped to 132. Despite D5W and Desmopressin, sodium climbed to normal today. Nephrology following and appreciate their input. Continue to monitor sodium levels (6) SABA (acute kidney injury): Code(s): N17.9 - Acute kidney failure, unspecified Status: Acute Assessment and Plan: Baseline creatinine unknown Presented with creatinine of 1.5 for which could be secondary to sepsis and hypovolemia Status post IV fluids Appreciate nephrology following the patient 06/03: CTA chest abdomen pelvis did not show any hydronephrosis renal calculi Jimenez in place, urine output has improved; probably post-ATN diuresis Urine lytes reflective of prerenal picture, patient has had adequate IV fluids No contrast exposure Cr trending down and now normal. Continue to monitor urine output, electrolytes and renal function (7) Atrial fibrillation with RVR: Code(s): I48.91 - Unspecified atrial fibrillation Status: Acute Assessment and Plan: Status post DC cardioversion in ER. Currently on heparin infusion. Appreciate cardiology evaluation and recommendations Echo 06/05 with EF 30-35%, grade I diastolic dysfxn, mild valve disease and PASP 34. Patient received amiodarone bolus x2 then Amiodrone drip. He has been deescalated to oral Amiodarone. Monitor on tele (8) Elevated brain natriuretic peptide (BNP) level: Code(s): R79.89 - Other specified abnormal findings of blood chemistry Status: Acute Assessment and Plan: Patient has elevated BNP of 4190, although no evidence of volume overload CT chest showed multifocal pneumonia Echocardiogram was above Follow (9) Hypertension: Code(s): I10 - Essential (primary) hypertension Status: Acute Assessment and Plan: Holding all antihypertensives due to low BP from shock Off pressors now Follow (10) Influenza A: Code(s): J10.1 - Influenza due to other identified influenza virus with other respiratory manifestations Status: Acute Assessment and Plan: Patient was tested positive for influenza A, on Tamiflu (11) Schizophrenia: Code(s): F20.9 - Schizophrenia, unspecified Status: Acute Assessment and Plan: History of schizophrenia and other behavior issues Unknown if he takes any medications Plan DVT prophylaxis -heparin infusion for AFib RVR Stress ulcer prophylaxis -Protonix Code Status -DNR Subjective Date/time seen: 06/08/24 19:22 Interval history: 49yo male smoker with history of HTN, schizophrenia, suicide attempt, depression, and possible alcohol abuse who presented to the emergency department via EMS [facility] after he was found to have abnormal vital signs. Patient with acute respiratory failure, pneumonia, bacteremia, acute kidney injury, hyponatremia, and AFib RVR status post DC cardioversion. Patient remains intubated and sedated. Stable overnight Review of Systems Review of Systems: ROS unobtainable: Yes unobtainable due to endotracheal tube Exam Narrative: AF 99.3 133/75 103 28 99% MV Gen - Intubated, sedated HEENT - ETT and OG secured Chest - clear anteriorly CV - RRR S1/S2. Tele showing PVCs Abd - Soft, Positive BS - Jimenez secured draining clear yellow urine Ext - trace pedal edema. Rt femoral central line. Psych - unable to assess Skin - Warm and dry Objective Data Vital Signs Vital Signs: Vital Signs - 24 hr 06/07/24 20:00 06/07/24 20:00 06/07/24 20:00 Temperature 98.3 F Pulse Rate 83 83 83 Respiratory Rate 32 H 32 H 28 H Blood Pressure 117/59 L Pulse Oximetry 98 98 Oxygen Delivery Mechanical Ventilation Fraction of Inspired Oxygen 40 06/07/24 20:00 06/07/24 20:00 06/07/24 20:05 Temperature Pulse Rate 83 84 83 Respiratory Rate 28 H Blood Pressure Pulse Oximetry Oxygen Delivery Fraction of Inspired Oxygen 06/07/24 20:15 06/07/24 20:53 06/07/24 20:55 Temperature Pulse Rate 81 80 Respiratory Rate 28 H Blood Pressure Pulse Oximetry 99 Oxygen Delivery Mechanical Ventilation Fraction of Inspired Oxygen 40 40 06/07/24 21:52 06/07/24 22:00 06/07/24 22:00 Temperature Pulse Rate 83 82 84 Respiratory Rate 32 H 28 H Blood Pressure Pulse Oximetry Oxygen Delivery Fraction of Inspired Oxygen 06/07/24 22:00 06/07/24 22:00 06/07/24 23:06 Temperature 98.5 F Pulse Rate 83 83 80 Respiratory Rate 28 H 26 H 32 H Blood Pressure 118/55 L Pulse Oximetry 99 Oxygen Delivery Fraction of Inspired Oxygen 06/07/24 23:35 06/07/24 23:43 06/08/24 00:00 Temperature Pulse Rate 74 83 Respiratory Rate 28 H 28 H Blood Pressure Pulse Oximetry 98 Oxygen Delivery Mechanical Ventilation Fraction of Inspired Oxygen 40 40 06/08/24 00:00 06/08/24 00:00 06/08/24 00:00 Temperature 98.2 F Pulse Rate 84 83 84 Respiratory Rate 28 H 14 Blood Pressure 118/64 Pulse Oximetry 99 Oxygen Delivery Fraction of Inspired Oxygen 06/08/24 00:04 06/08/24 00:19 06/08/24 00:20 Temperature Pulse Rate 84 86 84 Respiratory Rate 37 H 37 H Blood Pressure Pulse Oximetry 100 Oxygen Delivery Mechanical Ventilation Fraction of Inspired Oxygen 40 06/08/24 02:00 06/08/24 02:00 06/08/24 02:00 Temperature 98.7 F Pulse Rate 76 76 78 Respiratory Rate 28 H 28 H Blood Pressure 121/70 Pulse Oximetry 99 Oxygen Delivery Fraction of Inspired Oxygen 06/08/24 02:00 06/08/24 02:00 06/08/24 02:38 Temperature 98.6 F Pulse Rate 76 81 79 Respiratory Rate 28 H 28 H 32 H Blood Pressure 121/70 Pulse Oximetry 99 Oxygen Delivery Fraction of Inspired Oxygen 06/08/24 02:39 06/08/24 03:00 06/08/24 03:00 Temperature Pulse Rate 79 82 81 Respiratory Rate 30 H 28 H Blood Pressure Pulse Oximetry 97 Oxygen Delivery Mechanical Ventilation Fraction of Inspired Oxygen 40 06/08/24 03:53 06/08/24 03:54 06/08/24 04:00 Temperature Pulse Rate 81 81 79 Respiratory Rate 31 H 31 H 28 H Blood Pressure Pulse Oximetry Oxygen Delivery Fraction of Inspired Oxygen 06/08/24 04:00 06/08/24 04:00 06/08/24 04:06 Temperature 98.8 F Pulse Rate 79 88 81 Respiratory Rate 28 H 28 H Blood Pressure 124/73 Pulse Oximetry 98 Oxygen Delivery Fraction of Inspired Oxygen 06/08/24 04:25 06/08/24 04:30 06/08/24 05:04 Temperature Pulse Rate 81 77 Respiratory Rate 28 H Blood Pressure Pulse Oximetry 98 98 Oxygen Delivery Mechanical Ventilation Mechanical Ventilation Fraction of Inspired Oxygen 40 40 40 06/08/24 06:00 06/08/24 06:00 06/08/24 06:00 Temperature 99.1 F Pulse Rate 79 80 79 Respiratory Rate 24 H 28 H Blood Pressure 126/76 Pulse Oximetry 98 Oxygen Delivery Fraction of Inspired Oxygen 06/08/24 06:00 06/08/24 07:05 06/08/24 07:05 Temperature Pulse Rate 79 77 77 Respiratory Rate 28 H 33 H Blood Pressure Pulse Oximetry 99 Oxygen Delivery Mechanical Ventilation Fraction of Inspired Oxygen 40 06/08/24 07:15 06/08/24 08:00 06/08/24 08:00 Temperature 99.5 F Pulse Rate 80 81 80 Respiratory Rate 32 H 23 H 26 H Blood Pressure 124/70 Pulse Oximetry 98 100 Oxygen Delivery Mechanical Ventilation Fraction of Inspired Oxygen 40 06/08/24 08:00 06/08/24 08:00 06/08/24 08:06 Temperature Pulse Rate 80 80 Respiratory Rate 26 H Blood Pressure Pulse Oximetry Oxygen Delivery Fraction of Inspired Oxygen 40 06/08/24 08:07 06/08/24 08:08 06/08/24 08:15 Temperature Pulse Rate 80 81 90 Respiratory Rate 28 H Blood Pressure Pulse Oximetry 97 Oxygen Delivery Mechanical Ventilation Fraction of Inspired Oxygen 40 06/08/24 08:50 06/08/24 08:51 06/08/24 10:00 Temperature 99.3 F Pulse Rate 91 89 75 Respiratory Rate 23 H 23 H 26 H Blood Pressure 129/66 Pulse Oximetry 99 Oxygen Delivery Fraction of Inspired Oxygen 06/08/24 10:00 06/08/24 10:35 06/08/24 11:45 Temperature Pulse Rate 79 76 89 Respiratory Rate 28 H Blood Pressure Pulse Oximetry 98 Oxygen Delivery Mechanical Ventilation Fraction of Inspired Oxygen 40 06/08/24 11:45 06/08/24 12:00 06/08/24 12:00 Temperature 99.1 F Pulse Rate 87 75 92 Respiratory Rate 28 H 26 H Blood Pressure 141/87 H Pulse Oximetry 98 Oxygen Delivery Fraction of Inspired Oxygen 06/08/24 12:00 06/08/24 12:00 06/08/24 13:05 Temperature Pulse Rate 81 78 Respiratory Rate 28 H Blood Pressure Pulse Oximetry 96 98 Oxygen Delivery Mechanical Ventilation Mechanical Ventilation Fraction of Inspired Oxygen 40 40 40 06/08/24 13:05 06/08/24 13:15 06/08/24 13:37 Temperature Pulse Rate 78 76 76 Respiratory Rate 26 H 26 H 28 H Blood Pressure Pulse Oximetry Oxygen Delivery Fraction of Inspired Oxygen 06/08/24 13:37 06/08/24 14:00 06/08/24 16:00 Temperature 98.9 F Pulse Rate 76 90 94 Respiratory Rate 27 H 19 Blood Pressure 139/72 Pulse Oximetry 98 Oxygen Delivery Fraction of Inspired Oxygen 06/08/24 16:00 06/08/24 16:00 06/08/24 16:00 Temperature 99.3 F Pulse Rate 94 82 Respiratory Rate 26 H 28 H Blood Pressure 133/75 Pulse Oximetry 97 98 Oxygen Delivery Mechanical Ventilation Fraction of Inspired Oxygen 40 40 06/08/24 16:15 06/08/24 16:30 06/08/24 17:57 Temperature Pulse Rate 91 79 103 H Respiratory Rate 28 H 28 H Blood Pressure Pulse Oximetry 99 Oxygen Delivery Mechanical Ventilation Fraction of Inspired Oxygen 40 06/08/24 17:57 Temperature Pulse Rate 103 H Respiratory Rate 28 H Blood Pressure Pulse Oximetry Oxygen Delivery Fraction of Inspired Oxygen Intake/Output Intake/Output: Intake & Output 06/05/24 06/06/24 06/07/24 06/08/24 23:59 23:59 23:59 23:59 Intake Total 3171.1 2863.9 2655.5 2954.3 Output Total 1075 2575 5025 2600 Balance 2096.1 288.9 -2369.5 354.3 Meds/Results Medications: Active Medications Generic Name Dose Route Start Last Admin Trade Name Freq PRN Reason Stop Dose Admin Acetaminophen 650 mg 06/03/24 13:56 Acetaminophen Elixir 325 Mg/10.15 Ml Udc FEED TUBE Q4H PRN Fever Albuterol/Ipratropium 3 ml 06/03/24 13:50 Ipratropium 0.5 Mg/Albuterol Sulfate 2.5 Mg Ampul.Neb 3 Ml INHALATION Q6HRT PRN Wheezng Albuterol/Ipratropium 3 ml 06/03/24 20:00 06/08/24 13:05 Ipratropium 0.5 Mg/Albuterol Sulfate 2.5 Mg Ampul.Neb 3 Ml INHALATION 3 ml Q6HRT ARABELLA Administration Amiodarone HCl 400 mg 06/06/24 09:40 06/08/24 08:08 Amiodarone Hcl 200 Mg Tablet PO 06/13/24 09:39 400 mg Q12HR ARABELLA Administration Amiodarone HCl 200 mg 06/14/24 08:00 Amiodarone Hcl 200 Mg Tablet PO DAILY@0800 REPLACED BY [facility] Dextrose 12.5 gm 06/03/24 13:46 Dextrose 50% 25 Gm/50 Ml Syringe IV PUSH PRN PRN Hypoglycemia Protocol Glucagon 1 mg 06/03/24 13:46 Glucagon For Inj 1 Mg Vial IM PRN PRN Hypoglycemia Protocol Glucose 15 gm 06/03/24 13:46 Glucose Oral Gel 15 Gm Of Glucse In 37.5 Gm Tube PO PRN PRN Hypoglycemia Protocol Heparin Sodium (Porcine) 6,000 units 06/03/24 12:33 06/04/24 23:06 Heparin Sodium 5,000 Units/Ml Vial IV PUSH 6,000 units PRN PRN Administration aPTT less than 55 seconds Heparin Sodium (Porcine) 3,000 units 06/03/24 12:33 06/06/24 05:43 Heparin Sodium 5,000 Units/Ml Vial IV PUSH 3,000 units PRN PRN Administration aPTT 55 - 70 seconds Hydrocortisone Sodium Succinate 50 mg 06/09/24 02:00 Hydrocortisone Sodium Succinate 100 Mg/2 Ml Vial IV PUSH 06/11/24 01:59 Q12H ARABELLA Heparin Sodium/Dextrose 25,000 units in 250 mls @ 23 mls/hr 06/03/24 12:35 06/08/24 16:24 Heparin Sodium/D5w 100 Units/Ml IV CONT 2,300 units/hr .[id number] ARABELLA 23 mls/hr Titration Protocol 2,300 UNITS/HR Dextrose 1,000 mls @ 100 mls/hr 06/03/24 13:46 Dextrose 5% 1,000 Ml IVPB PRN PRN Hypoglycemia Protocol Fentanyl Citrate 2,500 mcg in 250 mls @ 12.5 mls/hr 06/03/24 13:50 06/08/24 16:30 Fentanyl 2,500 Mcg/Ns 250 Ml IV CONT 125 mcg/hr .Q20H ARABELLA 12.5 mls/hr Titration Protocol 125 MCG/HR Midazolam HCl 100 mg in 100 mls @ 4 mls/hr 06/03/24 13:50 06/08/24 17:57 Versed 100 Mg/Ns 100 Ml IV CONT 4 mg/hr .Q25H ARABELLA 4 mls/hr Administration Protocol 4 MG/HR Norepinephrine Bitartrate 8 mg in 250 mls @ 0 mls/hr 06/03/24 17:50 06/06/24 17:43 Levophed 8 Mg/D5w 250 Ml IV CONT Infused .Q0M ARABELLA Titration Protocol 0 MCG/MIN Cefepime HCl 2 gm in 50 mls @ 100 mls/hr 06/04/24 15:00 06/08/24 15:40 Maxipime 2 Gm/Ns 50 Ml IVPB 100 mls/hr Q12H ARABELLA Administration Micafungin Sodium 100 mg/ 100 mls @ 100 mls/hr 06/08/24 09:00 06/08/24 08:08 Sodium Chloride IVPB 100 mls/hr DAILY ARABELLA Administration Vancomycin HCl 1,500 mg in 500 mls @ 250 mls/hr 06/09/24 04:00 Vancomycin 1,500 Mg/Ns 500 Ml IVPB Q18H ARABELLA Insulin Aspart 3 - 6 units 06/03/24 18:00 06/08/24 12:35 Insulin Aspart (*Bkc) 100 Units/Ml SUB-Q Not Given Q6HR REPLACED BY [facility] Protocol Midazolam HCl 2 mg 06/03/24 13:48 06/03/24 16:40 Midazolam Hcl (*Crx) 2 Mg/2 Ml Vial IV PUSH 2 mg Q5M PRN Administration ventilator asynchrony Miscellaneous Information 0 each 06/08/24 00:01 Ivs In Normal Saline (If Possible) XX 07/08/24 00:00 CLARIFY ARABELLA Multi-Ingred Cream/Lotion/Oil/Oint 1 applic 06/03/24 14:00 06/08/24 08:08 Mineral Oil/White Petrolatum Ointment EACH EYE 1 applic Q12HR ARABELLA Administration Oseltamivir Phosphate 30 mg 06/04/24 09:00 06/08/24 08:11 Oseltamivir Phosphate Oral Susp 30 Mg/5 Ml Syringe FEED TUBE 06/09/24 08:59 30 mg Q12HR ARABELLA Administration Pantoprazole Sodium 40 mg 06/04/24 09:00 06/08/24 08:09 Pantoprazole Sodium Iv 40 Mg Vial IV PUSH 40 mg QAM ARABELLA Administration Sodium Chloride 10 ml 06/03/24 22:00 06/08/24 13:31 Central Line Flush IV PUSH 10 ml Q8HR ARABELLA Administration Sodium Chloride 20 ml 06/03/24 19:36 Central Line Flush IV PUSH PRN PRN after blood draws Radiology Results: ITS Impressions Chest/Abdomen/Pelvis CT 06/03/24 17:44 IMPRESSION: Dense bilateral pulmonary infiltrates. Loculated dense effusion within the left upper lobe, similar to what one might see with an adjacent fracture. Although, significant respiratory artifact renders this evaluation limited. Perhaps once adequate resuscitation has been performed and lung findings are improving repeat imaging may be attempted with intravenous contrast, in order to evaluate for the presence or absence of acute traumatic injury. Hepatosplenomegaly. Free fluid within the deep pelvis, never a normal finding in a male patient. Abdomen Ultrasound 06/05/24 08:52 IMPRESSION: 1. Small volume of ascites. Chest X-Ray 06/08/24 06:46 Impression: 1: Persistent bilateral airspace disease which is not significantly changed allowing for technique, consistent with edema versus pneumonia. Labs Labs: Laboratory Results - last 24 hr 06/03/24 06/03/24 06/07/24 18:20 23:48 23:09 WBC RBC Hgb Hct MCV MCH MCHC RDW Plt Count MPV Immature Gran % (Auto) Neut % (Auto) Lymph % (Auto) [place] % (Auto) Eos % (Auto) Baso % (Auto) Lymph # (Auto) [place] # (Auto) Eos # (Auto) Baso # (Auto) Abs Immat Gran (auto) Absolute Neuts (auto) Absolute Nucleated RBC Total Counted Neutrophils % (Manual) Band Neutrophils % Lymphocytes % (Manual) Monocytes % (Manual) Nucleated RBC % Abs Neuts (Manual) Abs Lymphs (Manual) Abs Monocytes (Manual) Platelet Estimate Schistocytes APTT Puncture Site ABG pH ABG pCO2 ABG pO2 ABG PO2/FiO2 Ratio ABG HCO3 ABG O2 Saturation ABG O2 Content ABG Base Excess A-a Gradient Oxyhemoglobin Carboxyhemoglobin Methemoglobin Reduced Hemoglobin Total Hemoglobin O2 Delivery Device O2 Liters/Min Minute Volume Vent Rate Vent Mode FiO2 Tidal Volume PEEP Peak Inspir Pressure Pressure Support Sodium Potassium Chloride Carbon Dioxide Anion Gap BUN Creatinine Estim Creat Clear Calc Estimated GFR Glucose POC Capillary Glucose 251 H Serum Osmolality 266 L Calcium Phosphorus Magnesium Total Bilirubin AST ALT Alkaline Phosphatase Total Protein Albumin Mycoplasma pneumon IgM 30 02/28/25 02/28/25 02/28/25 01:03 04:57 05:07 WBC 16.5 H RBC 2.86 L Hgb 8.9 L Hct 26.0 L MCV 90.9 MCH 31.1 MCHC 34.2 RDW 13.7 Plt Count 220 MPV 9.5 Immature Gran % (Auto) Not Reportable Neut % (Auto) Not Reportable Lymph % (Auto) Not Reportable [place] % (Auto) Not Reportable Eos % (Auto) Not Reportable Baso % (Auto) Not Reportable Lymph # (Auto) Not Reportable [place] # (Auto) Not Reportable Eos # (Auto) Not Reportable Baso # (Auto) Not Reportable Abs Immat Gran (auto) Not Reportable Absolute Neuts (auto) Not Reportable Absolute Nucleated RBC Not Reportable Total Counted 100 Neutrophils % (Manual) 82 H Band Neutrophils % 9 H Lymphocytes % (Manual) 5 L Monocytes % (Manual) 4 Nucleated RBC % Not Reportable Abs Neuts (Manual) 15.01 H Abs Lymphs (Manual) 0.82 L Abs Monocytes (Manual) 0.66 Platelet Estimate Adequate Schistocytes None seen APTT 78.1 H Puncture Site Right radial ABG pH 7.499 H ABG pCO2 39.6 ABG pO2 100.6 H ABG PO2/FiO2 Ratio 2.51 ABG HCO3 30.1 H ABG O2 Saturation 98.0 ABG O2 Content 15.5 L ABG Base Excess 6.5 A-a Gradient 139.1 Oxyhemoglobin 97.4 Carboxyhemoglobin 0.3 Methemoglobin 0.2 Reduced Hemoglobin 2.1 Total Hemoglobin 11.2 L O2 Delivery Device Ventilator O2 Liters/Min Not Reportable Minute Volume Not Reportable Vent Rate 28 Vent Mode Cmv FiO2 40 Tidal Volume 450 PEEP 10 Peak Inspir Pressure Not Reportable Pressure Support Not Reportable Sodium 138 Potassium 4.0 Chloride 100 Carbon Dioxide 32 H Anion Gap 6 BUN 74 H Creatinine 1.22 Estim Creat Clear Calc 62 Estimated GFR > 60 Glucose 183 H POC Capillary Glucose Serum Osmolality Calcium 8.1 L Phosphorus 2.5 Magnesium 2.9 H Total Bilirubin 0.6 AST 102 H ALT 48 Alkaline Phosphatase 73 Total Protein 6.0 L Albumin 2.6 L Mycoplasma pneumon IgM 06/08/24 06/08/24 06/08/24 08:58 11:47 15:35 WBC RBC Hgb Hct MCV MCH MCHC RDW Plt Count MPV Immature Gran % (Auto) Neut % (Auto) Lymph % (Auto) [place] % (Auto) Eos % (Auto) Baso % (Auto) Lymph # (Auto) [place] # (Auto) Eos # (Auto) Baso # (Auto) Abs Immat Gran (auto) Absolute Neuts (auto) Absolute Nucleated RBC Total Counted Neutrophils % (Manual) Band Neutrophils % Lymphocytes % (Manual) Monocytes % (Manual) Nucleated RBC % Abs Neuts (Manual) Abs Lymphs (Manual) Abs Monocytes (Manual) Platelet Estimate Schistocytes APTT 93.4 H 124.6 H Puncture Site ABG pH ABG pCO2 ABG pO2 ABG PO2/FiO2 Ratio ABG HCO3 ABG O2 Saturation ABG O2 Content ABG Base Excess A-a Gradient Oxyhemoglobin Carboxyhemoglobin Methemoglobin Reduced Hemoglobin Total Hemoglobin O2 Delivery Device O2 Liters/Min Minute Volume Vent Rate Vent Mode FiO2 Tidal Volume PEEP Peak Inspir Pressure Pressure Support Sodium Potassium Chloride Carbon Dioxide Anion Gap BUN Creatinine Estim Creat Clear Calc Estimated GFR Glucose POC Capillary Glucose 194 H Serum Osmolality Calcium Phosphorus Magnesium Total Bilirubin AST ALT Alkaline Phosphatase Total Protein Albumin Mycoplasma pneumon IgM 06/08/24 19:09 WBC RBC Hgb Hct MCV MCH MCHC RDW Plt Count MPV Immature Gran % (Auto) Neut % (Auto) Lymph % (Auto) [place] % (Auto) Eos % (Auto) Baso % (Auto) Lymph # (Auto) [place] # (Auto) Eos # (Auto) Baso # (Auto) Abs Immat Gran (auto) Absolute Neuts (auto) Absolute Nucleated RBC Total Counted Neutrophils % (Manual) Band Neutrophils % Lymphocytes % (Manual) Monocytes % (Manual) Nucleated RBC % Abs Neuts (Manual) Abs Lymphs (Manual) Abs Monocytes (Manual) Platelet Estimate Schistocytes APTT Puncture Site ABG pH ABG pCO2 ABG pO2 ABG PO2/FiO2 Ratio ABG HCO3 ABG O2 Saturation ABG O2 Content ABG Base Excess A-a Gradient Oxyhemoglobin Carboxyhemoglobin Methemoglobin Reduced Hemoglobin Total Hemoglobin O2 Delivery Device O2 Liters/Min Minute Volume Vent Rate Vent Mode FiO2 Tidal Volume PEEP Peak Inspir Pressure Pressure Support Sodium Potassium Chloride Carbon Dioxide Anion Gap BUN Creatinine Estim Creat Clear Calc Estimated GFR Glucose POC Capillary Glucose 226 H Serum Osmolality Calcium Phosphorus Magnesium Total Bilirubin AST ALT Alkaline Phosphatase Total Protein Albumin Mycoplasma pneumon IgM
[2024-06-08 20:12] LABS: Alveolar/Arterial O2 Gradient 391.1 mmHg; Base Excess ABG 6.4 mEq/l (+/-2.0); Fractional Inspired Oxygen 70 %; HCO3 ABG 30.3 mEq/l (22.0-26.0); Oxygen Content ABG 13.9 %vol (16.0-22.0); Oxygen Saturation ABG 93.8 % (95.0-100.0); Oxyhemoglobin 92.2 % THb (90.0-100.0); PCO2 ABG 41.2 mmHg (35.0-45.0); PO2 ABG 63.7 mmHg (80.0-100.0); PO2 FiO2 Ratio Arterial Blood 0.91 %; Total Hemoglobin 10.7 g/dL (12.0-18.0); pH ABG 7.485 (7.350-7.450)
[2024-06-08 20:13] LABS: Site Drawn LEFT RADIAL
[2024-06-08 20:14] LABS: Arterial Blood Gas PEEP 10 cmH2O; Arterial Blood Gas Tidal Volume 450 ml; Arterial Blood Gas Vent Mode CMV; Arterial Blood Gas Ventilator rate 26 /MIN; Device VENTILATOR
[2024-06-08] MEDS: FENTANYL 2,500MCG/NS250ML(*CRX 2,500 MCG/250 ML BAG 15 MCG IV CONT (21:10)
--- NOTE | 2024-06-08 21:11 | ED.PROCEDURE ---
Procedures Chest Tube Chest Tube 1: Chest tube location: Mid-Axillary Chest Tube Type: quik thal Chest tube procedure: Yes betadine prep and sterile drapes applied Incision made with: #11 blade Calderón of air heard: Yes Tube Drainage: blood Amount of initial drainage (ml): 5 Post procedure: sutured to skin, sterile dressing applied and connected to Pluero Vac Post procedure CXR?: Yes Post Procedure: post CXR reviewed, placement appropriate and pneumo resolved Patient tolerated procedure: Yes
--- NOTE | 2024-06-08 22:10 | PC.NURSE ---
1949 Pt noted to be tachycardic 125 and respiratory rate of 35 with abdominal breathing desating to 88%. breath sounds noted on left lung and fictional rub on right lung field FIO2 increased to 60% and sats returned to 90-92%. CXR and Abg performed CXR showed right pneumothorax a 2009. Dr Ross notified and ordered a chest tube insertion. Contacted Dr Kenyon via exchange and he informed me that he was at another hospital and the we would have to use the ER physician at 2029. Dr Kwok contacted and came to bedside 2034 Heparin drip was stopped and DR Kwok performed needle decompression of left lung with 14gauge angiocath. which resulted in decreased RR to 28 and HR to 105-110. Pt was then prepped for chest tube insertion. 16 Fr Thal Quick chest tube placed successfully and hooked to pleuravac with suction. Sats 98%, RR 28, HR 105. site dressed small air leak noted for 10-15 min after procedure at which time the air leak ceased. CXR confirmed resolution of pneumothorax 2104.
[2024-06-09] VITALS (43 sets, daily range): BP systolic 0–170; BP diastolic 0–102; PULSE 75–132; RESP 15–33; TEMP 37.4–38.1; O2SAT 94–100
[2024-06-09] MEDS: IPRATROPIUM 0.5 MG/ALBUTEROL SULFATE 2.5 MG AMPUL.NEB 3 ML INHALATION ×4 (01:12→20:44)
[2024-06-09] MEDS: CENTRAL LINE FLUSH 10 ML IV PUSH ×4 (02:07→22:37)
[2024-06-09] MEDS: ROCURONIUM BROMIDE 50 MG/5 ML VIAL IV PUSH (02:29)
[2024-06-09 02:40] LABS: Glucose Point of Care 220 mg/dl (65-105)
[2024-06-09] MEDS: INSULIN ASPART (*BKC) 100 UNITS/ML SUB-Q (02:42)
[2024-06-09] MEDS: HYDROCORTISONE SODIUM SUCCINATE 100 MG/2 ML VIAL 50 MG IV PUSH ×2 (02:50→14:31)
[2024-06-09] MEDS: CEFEPIME 2 GM/NS 50 ML 2 GM/50 ML BAG IVPB ×2 (02:50→14:32)
[2024-06-09] MEDS: CISATRACURIUM BESYLATE 200 MG in SODIUM CHLORIDE 0.9% IV 80 ML 7.13 ML IVPB (03:03)
--- NOTE | 2024-06-09 03:12 | ECG_ITS ---
Test Date: 2024-06-09 03:19:18 Measurements Intervals [place] Rate: 133 P: 61 MO: 154 QRS: 47 QRSD: 92 T: 52 QT: 286 QTc: 427 Interpretive Statements SINUS TACHYCARDIA BORDERLINE R WAVE PROGRESSION, ANTERIOR LEADS ST ELEVATION IN ANTERIOR LEADS- PROBABLY EARLY REPOLARIZATION ABNORMALITY ABNORMAL ECG Compared to ECG 06/03/2024 15:34:38 NO SIGNIFICANT CHANGE Electronically Signed On 06-09-2024 09:33:27 ATM TECHNICIAN by Merrick Alford D.O.
[2024-06-09] MEDS: [UNRECOGNIZED DRUG - REMARK] XX (03:32)
[2024-06-09 04:11] LABS: Hematocrit 28.7 % (42.0-52.0); Hemoglobin 9.5 g/dL (14.0-18.0); Mean Corpuscular HGB Conc 33.1 g/dl (32-36); Mean Corpuscular Hemoglobin 30.7 pg (26-34); Mean Corpuscular Volume 92.9 fl (80-100); Mean Platelet Volume 9.3 fl (7.4-10.4); Platelet Count Result 246 k/mm3 (150-375); Red Blood Count 3.09 M/mm3 (4.6-6.20); Red Cell Distribution Width 14.2 % (11.5-14.5); White Blood Count 22.5 K/mm3 (4.5-10.0)
[2024-06-09] MEDS: VANCOMYCIN 1,500 MG/NS 500 ML 1,500 MG/500 ML BAG 250 MG IVPB (04:20)
[2024-06-09 04:22] LABS: Alanine Aminotransferase 50 U/L (6-50); Albumin Level 2.7 g/dL (3.5-5.1); Alkaline Phosphatase 103 U/L (38-126); Anion Gap 5 mmol/L (4-12); Aspartate Amino Transferase 84 U/L (17-59); Bilirubin,Total 0.6 mg/dL (0.2-1.3); Blood Urea Nitrogen 78 mg/dL (9-20); Calcium 8.3 mg/dL (8.4-10.2); Carbon Dioxide 34 mmol/L (22-30); Chloride 105 mmol/L (98-107); Estimated CRCL calculation 71 ml/min; Estimated Glomerular Filt Rate > 60; Glucose 192 mg/dL (65-110); Phosphorus 3.6 mg/dL (2.5-4.5); Potassium 4.7 mmol/L (3.4-5.0); Sodium 144 mmol/L (137-145)
[2024-06-09 04:24] LABS: Partial Thromboplastin Time 24.1 Seconds (22.3-36.8)
[2024-06-09 04:35] LABS: Anisocytosis 1+; Atypical Lymphocytes Present; Band Neutrophils Percent 7 % (0-6); Eosinophils Absolute Manual 0.22 K/mm3 (0.02-0.50); Eosinophils Percent Manual 1 % (0-4); Hypochromasia 1+; Lymphocytes Absolute Manual 3.15 K/mm3 (1.1-4.5); Monocytes Absolute Manual 0.67 K/mm3 (0.1-0.90); Monocytes Percent Manual 3 % (3-9); Neutrophils Absolute Manual 18.45 K/mm3 (1.3-6.7); Neutrophils Percent Manual 75 % (46-73); Platelet Estimate Adequate (Adequate); Schistocytes Rare; Total Cells Counted 100
[2024-06-09 04:53] LABS: Alveolar/Arterial O2 Gradient 79.3 mmHg; Base Excess ABG 5.2 mEq/l (+/-2.0); Carboxyhemoglobin 0.3 % THb (0-2.0); Fractional Inspired Oxygen 70 %; HCO3 ABG 32.5 mEq/l (22.0-26.0); Methemoglobin ABG 0.4 %THb (0-1.5); Oxygen Content ABG 16.4 %vol (16.0-22.0); Oxygen Saturation ABG 99.7 % (95.0-100.0); PO2 FiO2 Ratio Arterial Blood 5.04 %; Reduced Hemoglobin 0.3 %THb (0-5.0); Total Hemoglobin 11.1 g/dL (12.0-18.0); pH ABG 7.336 (7.350-7.450)
[2024-06-09 05:09] LABS: PCO2 ABG 62.1 mmHg (35.0-45.0)
[2024-06-09 05:10] LABS: Arterial Blood Gas PEEP 10 cmH2O; Arterial Blood Gas Tidal Volume 450 ml; Arterial Blood Gas Vent Mode CMV; Arterial Blood Gas Ventilator rate 26 /MIN; Device VENTILATOR; Site Drawn RIGHT RADIAL
[2024-06-09] MEDS: METOPROLOL TARTRATE INJ 5 MG/5 ML VIAL IV PUSH (05:29)
[2024-06-09] MEDS: METOPROLOL TARTRATE 50 MG TAB FEED TUBE ×2 (08:23→22:37)
[2024-06-09] MEDS: MINERAL OIL/WHITE PETROLATUM OINTMENT 1 APPLIC EACH EYE ×2 (08:23→22:37)
[2024-06-09] MEDS: AMIODARONE HCL 200 MG TABLET 400 MG PO ×2 (08:23→22:36)
[2024-06-09] MEDS: PANTOPRAZOLE SODIUM IV 40 MG VIAL IV PUSH (08:24)
[2024-06-09] MEDS: MICAFUNGIN SODIUM 100 MG in SODIUM CHLORIDE 0.9% IV 100 ML IVPB (08:24)
--- NOTE | 2024-06-09 08:24 | P.PNIM_ITS ---
Progress Note: A&P Assessment and Plan (1) Acute respiratory failure: Code(s): J96.00 - Acute respiratory failure, unspecified whether with hypoxia or hypercapnia Status: Acute Assessment and Plan: Acute respiratory failure secondary to pneumonia and influenza -06/03: intubated in the ER and patient was proned for approximately 20 hours Influenza A positive; negative for COVID, RSV Urine Legionella Ag, pneumococcal Ag and mycoplasma IgM pending CT Chest/Abd/Pelvis 06/03: * Dense bilateral pulmonary infiltrates with loculated dense effusion within the left upper lobe, similar to what one might see with an adjacent fracture. Although, significant respiratory artifact renders this evaluation limited.Perhaps once adequate resuscitation has been performed and lung findings are improving repeat imaging may be attempted with intravenous contrast, in order to evaluate for the presence or absence of acute traumatic injury. * Hepatosplenomegaly. * Free fluid within the deep pelvis, never a normal finding in a male patient. Sedated with fentanyl, Versed. Was off Nimbex but resumed WBC back up ABG noted. Vent management per mortgage sales manager. (2) Septic shock: Code(s): A41.9 - Sepsis, unspecified organism; R65.21 - Severe sepsis with septic shock Status: Acute Assessment and Plan: Patient was hypotension refractory to IV fluids so pressors started. Etiology likely related to sespsis from pneumonia and bacteremia Patient received adequate amount of IV fluids BCx 06/03: Streptococcus pneumonia 05/13 bottles Lactic acid has normalized Currently off Levophed (06/05) and vasopressin (06/06) Repeat BCx 06/06: growing Shakira albicans and Staph epidermidis (contaminant?); 2nd set NGTD Echo 06/05 with EF 30-35%, grade I diastolic dysfxn, mild valve disease and PASP 34. Repeat BCx 06/08 NGTD Continue to maintain MAP > 65 mm Hg or SBP > 100 mm Hg Continue vancomycin cefepime and doxycycline (06/03); Micafungin added (06/08) Continue stress dose steroids (06/03) (3) Spontaneous pneumothorax: Code(s): J93.83 - Other pneumothorax Status: Acute Assessment and Plan: Patient decompensated with workup revealing a left PTX Chest tube placed with good response. Chest tube management per mortgage sales manager. Try to minimize barotrauma. (4) Fungemia: Code(s): B49 - Unspecified mycosis Status: Acute Assessment and Plan: As above. Etiology unclear. Consider fungal PNA. HIV was negative on 06/03 (5) Pneumonia: Code(s): J18.9 - Pneumonia, unspecified organism Status: Acute Assessment and Plan: See above (6) Hyponatremia: Code(s): E87.1 - Hypo-osmolality and hyponatremia Status: Acute Assessment and Plan: Hyponatremia with sodium levels of 117 on admission. Etiology not clear but consider excessive water intake, PNA, pain, SIADH, CHF and/or SSRI Patient received adequate IV fluids Na level was climbing slowly but jumped to 132. Despite D5W and Desmopressin, sodium climbed to normal Nephrology following and appreciate their input. Continue to monitor sodium levels (7) SABA (acute kidney injury): Code(s): N17.9 - Acute kidney failure, unspecified Status: Acute Assessment and Plan: Baseline creatinine unknown Presented with creatinine of 1.5 for which could be secondary to sepsis and hypovolemia Status post IV fluids Appreciate nephrology following the patient 06/03: CTA chest abdomen pelvis did not show any hydronephrosis renal calculi Jimenez in place, urine output has improved; probably post-ATN diuresis Urine lytes reflective of prerenal picture, patient has had adequate IV fluids No contrast exposure Cr trending down and now normal. Continue to monitor urine output, electrolytes and renal function (8) Atrial fibrillation with RVR: Code(s): I48.91 - Unspecified atrial fibrillation Status: Acute Assessment and Plan: Status post DC cardioversion in ER. Currently on heparin infusion. Appreciate cardiology evaluation and recommendations Echo 06/05 with EF 30-35%, grade I diastolic dysfxn, mild valve disease and PASP 34. Patient received amiodarone bolus x2 then Amiodrone drip. He has been deescalated to oral Amiodarone. Monitor on tele (9) Elevated brain natriuretic peptide (BNP) level: Code(s): R79.89 - Other specified abnormal findings of blood chemistry Status: Acute Assessment and Plan: Patient has elevated BNP of 4190, although no evidence of volume overload CT chest showed multifocal pneumonia Echocardiogram was above Follow (10) Hypertension: Code(s): I10 - Essential (primary) hypertension Status: Acute Assessment and Plan: Holding all antihypertensives due to low BP from shock Off pressors now Follow (11) Influenza A: Code(s): J10.1 - Influenza due to other identified influenza virus with other respiratory manifestations Status: Acute Assessment and Plan: Patient was tested positive for influenza A, on Tamiflu (12) Schizophrenia: Code(s): F20.9 - Schizophrenia, unspecified Status: Acute Assessment and Plan: History of schizophrenia and other behavior issues Unknown if he takes any medications Plan DVT prophylaxis -heparin infusion held Stress ulcer prophylaxis -Protonix Code Status -DNR Subjective Date/time seen: 06/09/24 08:24 Interval history: 49yo male smoker with history of HTN, schizophrenia, suicide attempt, depression, and possible alcohol abuse who presented to the emergency department via EMS from [facility] after he was found to have abnormal vital signs. Patient with acute respiratory failure, pneumonia, bacteremia, acute kidney injury, hyponatremia, and AFib RVR status post DC cardioversion. Patient remains intubated, sedated and now paralyzed again. Events noted overnight. patient with PTX requiring chest tube Review of Systems Review of Systems: ROS unobtainable: Yes unobtainable due to endotracheal tube Exam Narrative: Tm 100.5 99.4 169/96 102 26 100% MV Gen - Intubated, sedated HEENT - ETT and OG secured Chest - coarse BS with left chest tube secured. CV - RRR S1/S2. Tele showing PVCs Abd - Soft, Positive BS - Jimenez secured draining clear yellow urine Ext - no pedal edema. Rt femoral central line. 2+ DP pulses Psych - unable to assess Skin - Warm and dry Objective Data Vital Signs Vital Signs: Vital Signs - 24 hr 06/08/24 08:50 06/08/24 08:51 06/08/24 10:00 Temperature 99.3 F Pulse Rate 91 89 75 Respiratory Rate 23 H 23 H 26 H Blood Pressure 129/66 Pulse Oximetry 99 Oxygen Delivery Fraction of Inspired Oxygen 06/08/24 10:00 06/08/24 10:00 06/08/24 10:00 Temperature Pulse Rate 79 79 82 Respiratory Rate 28 H 28 H Blood Pressure Pulse Oximetry Oxygen Delivery Fraction of Inspired Oxygen 06/08/24 10:35 06/08/24 11:45 06/08/24 11:45 Temperature Pulse Rate 76 89 87 Respiratory Rate 28 H 28 H Blood Pressure Pulse Oximetry 98 Oxygen Delivery Mechanical Ventilation Fraction of Inspired Oxygen 40 06/08/24 12:00 06/08/24 12:00 06/08/24 12:00 Temperature 99.1 F Pulse Rate 75 92 Respiratory Rate 26 H Blood Pressure 141/87 H Pulse Oximetry 98 Oxygen Delivery Fraction of Inspired Oxygen 40 06/08/24 12:00 06/08/24 12:00 06/08/24 12:00 Temperature Pulse Rate 81 81 79 Respiratory Rate 28 H 28 H 28 H Blood Pressure Pulse Oximetry 96 Oxygen Delivery Mechanical Ventilation Fraction of Inspired Oxygen 40 06/08/24 13:05 06/08/24 13:05 06/08/24 13:15 Temperature Pulse Rate 78 78 76 Respiratory Rate 26 H 26 H Blood Pressure Pulse Oximetry 98 Oxygen Delivery Mechanical Ventilation Fraction of Inspired Oxygen 40 06/08/24 13:37 06/08/24 13:37 06/08/24 14:00 Temperature 98.9 F Pulse Rate 76 76 90 Respiratory Rate 28 H 27 H 19 Blood Pressure 139/72 Pulse Oximetry 98 Oxygen Delivery Fraction of Inspired Oxygen 06/08/24 14:00 06/08/24 14:00 06/08/24 16:00 Temperature Pulse Rate 78 83 94 Respiratory Rate 28 H 28 H Blood Pressure Pulse Oximetry Oxygen Delivery Fraction of Inspired Oxygen 06/08/24 16:00 06/08/24 16:00 06/08/24 16:00 Temperature 99.3 F Pulse Rate 94 82 Respiratory Rate 26 H 28 H Blood Pressure 133/75 Pulse Oximetry 97 98 Oxygen Delivery Mechanical Ventilation Fraction of Inspired Oxygen 40 40 06/08/24 16:00 06/08/24 16:00 06/08/24 16:15 Temperature Pulse Rate 79 79 91 Respiratory Rate 28 H 28 H Blood Pressure Pulse Oximetry 99 Oxygen Delivery Mechanical Ventilation Fraction of Inspired Oxygen 40 06/08/24 16:30 06/08/24 17:57 06/08/24 17:57 Temperature Pulse Rate 79 103 H 103 H Respiratory Rate 28 H 28 H 28 H Blood Pressure Pulse Oximetry Oxygen Delivery Fraction of Inspired Oxygen 06/08/24 18:00 06/08/24 18:00 06/08/24 18:00 Temperature 99.5 F Pulse Rate 116 H 110 H 81 Respiratory Rate 28 H 28 H Blood Pressure 133/96 H Pulse Oximetry 95 Oxygen Delivery Fraction of Inspired Oxygen 06/08/24 18:00 06/08/24 19:40 06/08/24 20:00 Temperature Pulse Rate 81 118 H 125 H Respiratory Rate 27 H 34 H Blood Pressure Pulse Oximetry 98 95 Oxygen Delivery Mechanical Ventilation Mechanical Ventilation Fraction of Inspired Oxygen 40 60 06/08/24 20:00 06/08/24 20:00 06/08/24 20:00 Temperature 99.6 F Pulse Rate 125 H 125 H Respiratory Rate 34 H Blood Pressure 142/92 H Pulse Oximetry 90 Oxygen Delivery Fraction of Inspired Oxygen 60 06/08/24 20:00 06/08/24 20:00 06/08/24 20:03 Temperature Pulse Rate 125 H 125 H 120 H Respiratory Rate 34 H 34 H 26 H Blood Pressure Pulse Oximetry Oxygen Delivery Fraction of Inspired Oxygen 06/08/24 20:10 06/08/24 20:55 06/08/24 21:00 Temperature 99.4 F Pulse Rate 125 H 98 118 H Respiratory Rate 26 H 28 H 25 H Blood Pressure 151/99 H Pulse Oximetry 99 Oxygen Delivery Fraction of Inspired Oxygen 06/08/24 21:00 06/08/24 21:10 06/08/24 21:41 Temperature Pulse Rate 118 H 98 98 Respiratory Rate 25 H 28 H Blood Pressure Pulse Oximetry 99 Oxygen Delivery Mechanical Ventilation Fraction of Inspired Oxygen 60 06/08/24 22:00 06/08/24 22:00 06/08/24 22:00 Temperature 99.0 F Pulse Rate 97 97 97 Respiratory Rate 28 H 24 H Blood Pressure 143/69 H Pulse Oximetry 99 Oxygen Delivery Fraction of Inspired Oxygen 06/08/24 22:00 06/08/24 22:37 06/08/24 23:00 Temperature 99.2 F Pulse Rate 97 78 83 Respiratory Rate 24 H 28 H Blood Pressure 143/69 H Pulse Oximetry 99 99 Oxygen Delivery Mechanical Ventilation Fraction of Inspired Oxygen 70 06/09/24 00:00 06/09/24 00:00 06/09/24 00:00 Temperature Pulse Rate 98 98 Respiratory Rate 28 H Blood Pressure Pulse Oximetry 100 Oxygen Delivery Mechanical Ventilation Fraction of Inspired Oxygen 40 40 06/09/24 00:00 06/09/24 00:00 06/09/24 01:12 Temperature 99.8 F H Pulse Rate 98 96 105 H Respiratory Rate 26 H 26 H Blood Pressure 146/73 H Pulse Oximetry 100 100 Oxygen Delivery Mechanical Ventilation Fraction of Inspired Oxygen 70 06/09/24 01:12 06/09/24 01:17 06/09/24 01:36 Temperature 100.4 F H Pulse Rate 105 H 111 H 120 H Respiratory Rate 33 H 30 H 30 H Blood Pressure 147/92 H Pulse Oximetry 97 Oxygen Delivery Fraction of Inspired Oxygen 06/09/24 01:36 06/09/24 01:56 06/09/24 01:56 Temperature Pulse Rate 98 104 H 98 Respiratory Rate 30 H 28 H Blood Pressure Pulse Oximetry 100 100 Oxygen Delivery Mechanical Ventilation Mechanical Ventilation Fraction of Inspired Oxygen 40 40 06/09/24 02:00 06/09/24 02:00 06/09/24 02:00 Temperature Pulse Rate 114 H 115 H 102 H Respiratory Rate 30 H 30 H Blood Pressure Pulse Oximetry Oxygen Delivery Fraction of Inspired Oxygen 06/09/24 02:00 06/09/24 02:30 06/09/24 02:30 Temperature 100.4 F H 100.4 F H Pulse Rate 102 H 131 H 132 H Respiratory Rate 30 H 26 H Blood Pressure 136/74 Pulse Oximetry 99 99 Oxygen Delivery Fraction of Inspired Oxygen 06/09/24 03:00 06/09/24 03:03 06/09/24 03:56 Temperature 100.5 F H Pulse Rate 122 H 124 H 124 H Respiratory Rate 26 H 28 H 26 H Blood Pressure 145/91 H 145/91 H Pulse Oximetry 99 99 Oxygen Delivery Mechanical Ventilation Fraction of Inspired Oxygen 40 06/09/24 03:59 06/09/24 03:59 06/09/24 04:00 Temperature 99.6 F Pulse Rate 125 H 122 H Respiratory Rate 26 H Blood Pressure 156/81 H Pulse Oximetry 99 Oxygen Delivery Fraction of Inspired Oxygen 40 06/09/24 04:00 06/09/24 04:00 06/09/24 04:37 Temperature Pulse Rate 123 H 126 H 111 H Respiratory Rate 26 H 26 H Blood Pressure Pulse Oximetry 100 Oxygen Delivery Mechanical Ventilation Fraction of Inspired Oxygen 70 06/09/24 05:28 06/09/24 05:29 06/09/24 05:30 Temperature 99.5 F Pulse Rate 125 H 126 H 98 Respiratory Rate 26 H Blood Pressure 150/83 H Pulse Oximetry 100 Oxygen Delivery Fraction of Inspired Oxygen 06/09/24 06:00 06/09/24 06:00 06/09/24 06:00 Temperature 99.4 F Pulse Rate 112 H 109 H 109 H Respiratory Rate 26 H 26 H 26 H Blood Pressure 164/96 H Pulse Oximetry 100 Oxygen Delivery Fraction of Inspired Oxygen 06/09/24 06:00 06/09/24 08:10 06/09/24 08:10 Temperature Pulse Rate 109 H 109 H 109 H Respiratory Rate 28 H 26 H Blood Pressure 169/96 H Pulse Oximetry 100 Oxygen Delivery Mechanical Ventilation Fraction of Inspired Oxygen 70 06/09/24 08:22 Temperature Pulse Rate 102 H Respiratory Rate 26 H Blood Pressure Pulse Oximetry Oxygen Delivery Fraction of Inspired Oxygen Intake/Output Intake/Output: Intake & Output 06/06/24 06/07/24 06/08/24 06/09/24 23:59 23:59 23:59 23:59 Intake Total 2863.9 2655.5 3286.7 1201 Output Total 2575 5025 2600 1100 Balance 288.9 -2369.5 686.7 101 Meds/Results Medications: Active Medications Generic Name Dose Route Start Last Admin Trade Name Freq PRN Reason Stop Dose Admin Acetaminophen 650 mg 06/03/24 13:56 Acetaminophen Elixir 325 Mg/10.15 Ml Udc FEED TUBE Q4H PRN Fever Albuterol/Ipratropium 3 ml 06/03/24 13:50 Ipratropium 0.5 Mg/Albuterol Sulfate 2.5 Mg Ampul.Neb 3 Ml INHALATION Q6HRT PRN Wheezng Albuterol/Ipratropium 3 ml 06/03/24 20:00 06/09/24 08:10 Ipratropium 0.5 Mg/Albuterol Sulfate 2.5 Mg Ampul.Neb 3 Ml INHALATION 3 ml Q6HRT ARABELLA Administration Amiodarone HCl 400 mg 06/06/24 09:40 06/08/24 21:41 Amiodarone Hcl 200 Mg Tablet PO 06/13/24 09:39 400 mg Q12HR ARABELLA Administration Amiodarone HCl 200 mg 06/14/24 08:00 Amiodarone Hcl 200 Mg Tablet PO DAILY@0800 ARABELLA Dextrose 12.5 gm 06/03/24 13:46 Dextrose 50% 25 Gm/50 Ml Syringe IV PUSH PRN PRN Hypoglycemia Protocol Glucagon 1 mg 06/03/24 13:46 Glucagon For Inj 1 Mg Vial IM PRN PRN Hypoglycemia Protocol Glucose 15 gm 06/03/24 13:46 Glucose Oral Gel 15 Gm Of Glucse In 37.5 Gm Tube PO PRN PRN Hypoglycemia Protocol Heparin Sodium (Porcine) 6,000 units 06/03/24 12:33 06/04/24 23:06 Heparin Sodium 5,000 Units/Ml Vial IV PUSH 6,000 units PRN PRN Administration aPTT less than 55 seconds Heparin Sodium (Porcine) 3,000 units 06/03/24 12:33 06/06/24 05:43 Heparin Sodium 5,000 Units/Ml Vial IV PUSH 3,000 units PRN PRN Administration aPTT 55 - 70 seconds Hydrocortisone Sodium Succinate 50 mg 06/09/24 02:00 06/09/24 02:50 Hydrocortisone Sodium Succinate 100 Mg/2 Ml Vial IV PUSH 06/11/24 01:59 50 mg Q12H ARABELLA Administration Heparin Sodium/Dextrose 25,000 units in 250 mls @ 0 mls/hr 06/03/24 12:35 06/08/24 21:45 Heparin Sodium/D5w 100 Units/Ml IV CONT Not Given .Q0M ARABELLA Protocol Dextrose 1,000 mls @ 100 mls/hr 06/03/24 13:46 Dextrose 5% 1,000 Ml IVPB PRN PRN Hypoglycemia Protocol Fentanyl Citrate 2,500 mcg in 250 mls @ 15 mls/hr 06/03/24 13:50 06/09/24 06:00 Fentanyl 2,500 Mcg/Ns 250 Ml IV CONT 150 mcg/hr .[id number] ARABELLA 15 mls/hr Titration Protocol 150 MCG/HR Midazolam HCl 100 mg in 100 mls @ 5 mls/hr 06/03/24 13:50 06/09/24 06:00 Versed 100 Mg/Ns 100 Ml IV CONT 5 mg/hr .Q20H ARABELLA 5 mls/hr Titration Protocol 5 MG/HR Norepinephrine Bitartrate 8 mg in 250 mls @ 0 mls/hr 06/03/24 17:50 06/06/24 17:43 Levophed 8 Mg/D5w 250 Ml IV CONT Infused .Q0M ARABELLA Titration Protocol 0 MCG/MIN Cefepime HCl 2 gm in 50 mls @ 100 mls/hr 06/04/24 15:00 06/09/24 03:29 Maxipime 2 Gm/Ns 50 Ml IVPB Infused Q12H ARABELLA Infusion Micafungin Sodium 100 mg/ 100 mls @ 100 mls/hr 06/08/24 09:00 06/08/24 09:00 Sodium Chloride IVPB Infused DAILY ARABELLA Infusion Vancomycin HCl 1,500 mg in 500 mls @ 250 mls/hr 06/09/24 04:00 06/09/24 04:20 Vancomycin 1,500 Mg/Ns 500 Ml IVPB 250 mls/hr Q18H ARABELLA Administration Cisatracurium Besylate 200 mg/ 100 mls @ 4.752 mls/hr 06/09/24 03:00 06/09/24 06:00 Sodium Chloride IVPB 2 mcg/kg/min .Q21H3M ARABELLA 4.75 mls/hr Titration Protocol 2 MCG/KG/MIN Insulin Aspart 3 - 6 units 06/03/24 18:00 06/09/24 06:25 Insulin Aspart (*Bkc) 100 Units/Ml SUB-Q Not Given Q6HR ARABELLA Protocol Insulin Glargine 5 units 06/09/24 09:00 Insulin Glargine (*Bkc) 100 Units/Ml SUB-Q DAILY ARABELLA Metoprolol Tartrate 50 mg 06/09/24 09:00 Metoprolol Tartrate 50 Mg Tab FEED TUBE Q12HR ARABELLA Midazolam HCl 2 mg 06/03/24 13:48 06/03/24 16:40 Midazolam Hcl (*Crx) 2 Mg/2 Ml Vial IV PUSH 2 mg Q5M PRN Administration ventilator asynchrony Miscellaneous Information 0 each 06/08/24 00:01 06/09/24 03:32 Ivs In Normal Saline (If Possible) XX 07/08/24 00:00 1 each CLARIFY ARABELLA Administration Multi-Ingred Cream/Lotion/Oil/Oint 1 applic 06/03/24 14:00 06/08/24 21:41 Mineral Oil/White Petrolatum Ointment EACH EYE 1 applic Q12HR ARABELLA Administration Oseltamivir Phosphate 30 mg 06/04/24 09:00 06/08/24 21:41 Oseltamivir Phosphate Oral Susp 30 Mg/5 Ml Syringe FEED TUBE 06/09/24 08:59 30 mg Q12HR ARABELLA Administration Pantoprazole Sodium 40 mg 06/04/24 09:00 06/08/24 08:09 Pantoprazole Sodium Iv 40 Mg Vial IV PUSH 40 mg QAM ARABELLA Administration Sodium Chloride 10 ml 06/03/24 22:00 06/09/24 06:26 Central Line Flush IV PUSH 10 ml Q8HR ARABELLA Administration Sodium Chloride 20 ml 06/03/24 19:36 Central Line Flush IV PUSH PRN PRN after blood draws Radiology Results: ITS Impressions Chest/Abdomen/Pelvis CT 06/03/24 17:44 IMPRESSION: Dense bilateral pulmonary infiltrates. Loculated dense effusion within the left upper lobe, similar to what one might see with an adjacent fracture. Although, significant respiratory artifact renders this evaluation limited. Perhaps once adequate resuscitation has been performed and lung findings are improving repeat imaging may be attempted with intravenous contrast, in order to evaluate for the presence or absence of acute traumatic injury. Hepatosplenomegaly. Free fluid within the deep pelvis, never a normal finding in a male patient. Abdomen Ultrasound 06/05/24 08:52 IMPRESSION: 1. Small volume of ascites. Chest X-Ray 06/09/24 07:39 IMPRESSION: 1. Slight improvement in bilateral multifocal pneumonia mid and lower lung zones. 2. Endotracheal, nasogastric and left chest tubes in expected position as detailed above. Labs Labs: Laboratory Results - last 24 hr 06/03/24 06/03/24 06/08/24 18:20 23:48 08:58 WBC RBC Hgb Hct MCV MCH MCHC RDW Plt Count MPV Immature Gran % (Auto) Neut % (Auto) Lymph % (Auto) White % (Auto) Eos % (Auto) Baso % (Auto) Lymph # (Auto) White # (Auto) Eos # (Auto) Baso # (Auto) Abs Immat Gran (auto) Absolute Neuts (auto) Absolute Nucleated RBC Total Counted Neutrophils % (Manual) Band Neutrophils % Lymphocytes % (Manual) Monocytes % (Manual) Eosinophils % (Manual) Nucleated RBC % Abs Neuts (Manual) Abs Lymphs (Manual) Abs Monocytes (Manual) Absolute Eos (Manual) Atypical Lymphocytes Platelet Estimate Hypochromasia Anisocytosis Schistocytes APTT 93.4 H Puncture Site ABG pH ABG pCO2 ABG pO2 ABG PO2/FiO2 Ratio ABG HCO3 ABG O2 Saturation ABG O2 Content ABG Base Excess A-a Gradient Oxyhemoglobin Carboxyhemoglobin Methemoglobin Reduced Hemoglobin Total Hemoglobin O2 Delivery Device O2 Liters/Min Minute Volume Vent Rate Vent Mode FiO2 Tidal Volume PEEP Peak Inspir Pressure Pressure Support Sodium Potassium Chloride Carbon Dioxide Anion Gap BUN Creatinine Estim Creat Clear Calc Estimated GFR Glucose POC Capillary Glucose Serum Osmolality 266 L Calcium Phosphorus Total Bilirubin AST ALT Alkaline Phosphatase Total Protein Albumin Mycoplasma pneumon IgM 30 06/08/24 06/08/24 06/08/24 11:47 15:35 19:09 WBC RBC Hgb Hct MCV MCH MCHC RDW Plt Count MPV Immature Gran % (Auto) Neut % (Auto) Lymph % (Auto) White % (Auto) Eos % (Auto) Baso % (Auto) Lymph # (Auto) White # (Auto) Eos # (Auto) Baso # (Auto) Abs Immat Gran (auto) Absolute Neuts (auto) Absolute Nucleated RBC Total Counted Neutrophils % (Manual) Band Neutrophils % Lymphocytes % (Manual) Monocytes % (Manual) Eosinophils % (Manual) Nucleated RBC % Abs Neuts (Manual) Abs Lymphs (Manual) Abs Monocytes (Manual) Absolute Eos (Manual) Atypical Lymphocytes Platelet Estimate Hypochromasia Anisocytosis Schistocytes APTT 124.6 H Puncture Site ABG pH ABG pCO2 ABG pO2 ABG PO2/FiO2 Ratio ABG HCO3 ABG O2 Saturation ABG O2 Content ABG Base Excess A-a Gradient Oxyhemoglobin Carboxyhemoglobin Methemoglobin Reduced Hemoglobin Total Hemoglobin O2 Delivery Device O2 Liters/Min Minute Volume Vent Rate Vent Mode FiO2 Tidal Volume PEEP Peak Inspir Pressure Pressure Support Sodium Potassium Chloride Carbon Dioxide Anion Gap BUN Creatinine Estim Creat Clear Calc Estimated GFR Glucose POC Capillary Glucose 194 H 226 H Serum Osmolality Calcium Phosphorus Total Bilirubin AST ALT Alkaline Phosphatase Total Protein Albumin Mycoplasma pneumon IgM 06/08/24 06/09/24 06/09/24 20:02 02:38 04:03 WBC 22.5 H RBC 3.09 L Hgb 9.5 L Hct 28.7 L MCV 92.9 MCH 30.7 MCHC 33.1 RDW 14.2 Plt Count 246 MPV 9.3 Immature Gran % (Auto) Not Reportable Neut % (Auto) Not Reportable Lymph % (Auto) Not Reportable White % (Auto) Not Reportable Eos % (Auto) Not Reportable Baso % (Auto) Not Reportable Lymph # (Auto) Not Reportable White # (Auto) Not Reportable Eos # (Auto) Not Reportable Baso # (Auto) Not Reportable Abs Immat Gran (auto) Not Reportable Absolute Neuts (auto) Not Reportable Absolute Nucleated RBC Not Reportable Total Counted 100 Neutrophils % (Manual) 75 H Band Neutrophils % 7 H Lymphocytes % (Manual) 14.0 L Monocytes % (Manual) 3 Eosinophils % (Manual) 1 Nucleated RBC % Not Reportable Abs Neuts (Manual) 18.45 H Abs Lymphs (Manual) 3.15 Abs Monocytes (Manual) 0.67 Absolute Eos (Manual) 0.22 Atypical Lymphocytes Present Platelet Estimate Adequate Hypochromasia 1+ Anisocytosis 1+ Schistocytes Rare APTT 24.1 Puncture Site Left radial ABG pH 7.485 H ABG pCO2 41.2 ABG pO2 63.7 L ABG PO2/FiO2 Ratio 0.91 ABG HCO3 30.3 H ABG O2 Saturation 93.8 L ABG O2 Content 13.9 L ABG Base Excess 6.4 A-a Gradient 391.1 Oxyhemoglobin 92.2 Carboxyhemoglobin Methemoglobin Reduced Hemoglobin Total Hemoglobin 10.7 L O2 Delivery Device Ventilator O2 Liters/Min Not Reportable Minute Volume Not Reportable Vent Rate 26 Vent Mode Cmv FiO2 70 Tidal Volume 450 PEEP 10 Peak Inspir Pressure Not Reportable Pressure Support Not Reportable Sodium 144 Potassium 4.7 Chloride 105 Carbon Dioxide 34 H Anion Gap 5 BUN 78 H Creatinine 1.07 Estim Creat Clear Calc 71 Estimated GFR > 60 Glucose 192 H POC Capillary Glucose 220 H Serum Osmolality Calcium 8.3 L Phosphorus 3.6 Total Bilirubin 0.6 AST 84 H ALT 50 Alkaline Phosphatase 103 Total Protein 6.0 L Albumin 2.7 L Mycoplasma pneumon IgM 06/09/24 04:40 WBC RBC Hgb Hct MCV MCH MCHC RDW Plt Count MPV Immature Gran % (Auto) Neut % (Auto) Lymph % (Auto) White % (Auto) Eos % (Auto) Baso % (Auto) Lymph # (Auto) White # (Auto) Eos # (Auto) Baso # (Auto) Abs Immat Gran (auto) Absolute Neuts (auto) Absolute Nucleated RBC Total Counted Neutrophils % (Manual) Band Neutrophils % Lymphocytes % (Manual) Monocytes % (Manual) Eosinophils % (Manual) Nucleated RBC % Abs Neuts (Manual) Abs Lymphs (Manual) Abs Monocytes (Manual) Absolute Eos (Manual) Atypical Lymphocytes Platelet Estimate Hypochromasia Anisocytosis Schistocytes APTT Puncture Site Right radial ABG pH 7.336 L ABG pCO2 62.1 H* ABG pO2 353.0 H ABG PO2/FiO2 Ratio 5.04 ABG HCO3 32.5 H ABG O2 Saturation 99.7 ABG O2 Content 16.4 ABG Base Excess 5.2 A-a Gradient 79.3 Oxyhemoglobin 99.0 Carboxyhemoglobin 0.3 Methemoglobin 0.4 Reduced Hemoglobin 0.3 Total Hemoglobin 11.1 L O2 Delivery Device Ventilator O2 Liters/Min Not Reportable Minute Volume Not Reportable Vent Rate 26 Vent Mode Cmv FiO2 70 Tidal Volume 450 PEEP 10 Peak Inspir Pressure Not Reportable Pressure Support Not Reportable Sodium Potassium Chloride Carbon Dioxide Anion Gap BUN Creatinine Estim Creat Clear Calc Estimated GFR Glucose POC Capillary Glucose Serum Osmolality Calcium Phosphorus Total Bilirubin AST ALT Alkaline Phosphatase Total Protein Albumin Mycoplasma pneumon IgM
[2024-06-09] MEDS: INSULIN GLARGINE (*BKC) 100 UNITS/ML SUB-Q (08:28)
--- NOTE | 2024-06-09 11:10 | WPDINTPN ---
Progress Note: A&P Assessment and Plan (1) Spontaneous pneumothorax: Code(s): J93.83 - Other pneumothorax Status: Acute Assessment and Plan: 06/08 late evening/night, patient was tachypneic, hypoxic, a tachycardic. Start chest x-ray showed large left-sided pneumothorax status post small more chest tube placed by ER physician -repeat chest x-ray with almost resolution of the left-sided pneumothorax (2) Acute respiratory failure: Code(s): J96.00 - Acute respiratory failure, unspecified whether with hypoxia or hypercapnia Status: Acute Assessment and Plan: Acute respiratory failure secondary to pneumonia -06/03: intubated in the ER -patient remains on CMV mode of ventilation, peep of 12 and 50% FiO2 this morning -06/03: Patient was proned for approximately 20 hours - chest x-ray this mornin. Slight improvement in bilateral multifocal pneumonia mid and lower lung zones. 2. Endotracheal, nasogastric and left chest tubes in expected position -influenza A positive -negative for COVID, RSV -urine Legionella negative -urine pneumococcal antigen positive -mycoplasma pneumonia none detected -continue bronchodilators -sedated with fentanyl, Versed. Off Nimbex since 06/06. Will start weaning sedation to evaluate neurological status 06/03/2024: CT chest, abdomen, pelvis IMPRESSION: Dense bilateral pulmonary infiltrates. Loculated dense effusion within the left upper lobe, similar to what one might see with an adjacent fracture. Although, significant respiratory artifact renders this evaluation limited. Perhaps once adequate resuscitation has been performed and lung findings are improving repeat imaging may be attempted with intravenous contrast, in order to evaluate for the presence or absence of acute traumatic injury. Hepatosplenomegaly. Free fluid within the deep pelvis, never a normal finding in a male patient. (3) Septic shock: Code(s): A41.9 - Sepsis, unspecified organism; R65.21 - Severe sepsis with septic shock Status: Acute Assessment and Plan: Patient with hypotension, refractory to IV fluids, -etiology likely related to pneumonia, UA was unremarkable -patient received adequate amount of IV fluids -06/03: blood cultures growing -Streptococcus pneumonia 2/2 bottles -lactic acid has normalized -continue cefepime and doxycycline (06/03) -06/06: Will discontinue vancomycin since as strep pneumo was pansensitive -currently OFF Levophed and vasopressin -Continue to maintain MAP > 65 mm Hg or SBP > 100 mm Hg -weaning stress dose steroids (06/03) -06/06: Repeat blood cultures growing yeast and Gram-positive cocci in clusters 1/2 bottles, could be contamination -06/08: Started patient on micafungin and vancomycin, will repeat blood cultures, if negative will de-escalate (4) Pneumonia: Code(s): J18.9 - Pneumonia, unspecified organism Status: Acute Assessment and Plan: See above (5) Hyponatremia: Code(s): E87.1 - Hypo-osmolality and hyponatremia Status: Acute Assessment and Plan: Hyponatremia with sodium levels of 117 on admission Etiology is not clear at this point in this could be secondary to excessive water intake. This could also be secondary to SIADH, congestive heart failure, SSRI, increased water intake -patient received adequate IV fluids -could will discontinue maintenance IV fluids, discussed with Nephrology -nephrology following the patient and appreciate the evaluation and recommendations -sodium levels have normalized continue to monitor (6) SABA (acute kidney injury): Code(s): N17.9 - Acute kidney failure, unspecified Status: Acute Assessment and Plan: Baseline creatinine unknown Presented with creatinine of 1.5 for which could be secondary to sepsis and hypovolemia Status post IV fluids Appreciate nephrology following the patient 06/03: CTA chest abdomen pelvis did not show any hydronephrosis renal calculi Jimenez in place, urine output has been low Urine lytes reflective of prerenal picture, patient has had adequate IV fluids, now in ARDS, -continue to monitor urine output, electrolytes and renal function -06/07: Significant urine output yesterday and overnight -continues to have good urine output, possible polyuric phase of ATN -nephrology following (7) Atrial fibrillation with RVR: Code(s): I48.91 - Unspecified atrial fibrillation Status: Acute Assessment and Plan: Status post DC cardioversion in ER. Currently on heparin infusion. -appreciate cardiology evaluation and recommendations -patient received amiodarone bolus x2, now on amiodarone at 0.5 mg/min -off pressors -switched amiodarone infusion to p.o. amiodarone per Cardiology recommendations - currently in snus rhythm - 06/09 HOLD HEPARIN infusion due to PTX 06/05/2024: Echocardiogram Summary 1. Left ventricular chamber dimension is normal. 2. Left ventricular systolic function is moderately reduced, estimated at 30-35%. 3. There is mildly increased left ventricular wall thickness. 4. The left ventricular diastolic function is grade I diastolic dysfunction. 5. Right ventricular systolic function is normal. 6. There is mild mitral valve regurgitation. 7. There is mild tricuspid valve regurgitation. 8. Estimated pulmonary arterial systolic pressure is 34 mmHg. (8) Elevated brain natriuretic peptide (BNP) level: Code(s): R79.89 - Other specified abnormal findings of blood chemistry Status: Acute Assessment and Plan: Patient has elevated BNP of 4190, although no evidence of volume overload from exam CT chest showed multifocal pneumonia Echocardiogram was above Cautious IV fluid (9) Hypertension: Code(s): I10 - Essential (primary) hypertension Status: Acute Assessment and Plan: Start home metoprolol (10) Influenza A: Code(s): J10.1 - Influenza due to other identified influenza virus with other respiratory manifestations Status: Acute Assessment and Plan: Patient was tested positive for influenza A, completed 10 days of Tamiflu (11) Schizophrenia: Code(s): F20.9 - Schizophrenia, unspecified Status: Acute Assessment and Plan: History of schizophrenia and other behavior issues Unknown if he takes any medications Plan DVT prophylaxis -hold heparin infusion due to PTX. start prophylactic lovenox Stress ulcer prophylaxis -Protonix Nutrition: tolerating tube feeds Code Status -DNR Total Critical Care Time - 32 minutes Discussed with patient's father and brother updated with his condition and plan of care. I answered all questions Due to a high probability of clinically significant, life threatening deterioration, the patient required my highest level of preparedness to intervene emergently and I personally spent this critical care time directly and personally managing the patient. This critical care time included obtaining a history; examining the patient; pulse oximetry; ordering and review of studies; arranging urgent treatment with development of a management plan; evaluation of patient's response to treatment; frequent reassessment; and discussions with other providers. It was exclusive of separately billable procedures and treating other patients and teaching time. Please see Assessment and Plan section and the rest of the note for further information on patient assessment and treatment This dictation may have been done utilizing a voice recognition system. Attempts have been made to correct errors. However, there may be uncorrected grammatical, spelling, and recognitions errors present. Subjective Date/time seen: 06/09/24 11:10 Interval history: Reason for consult: Acute respiratory failure, pneumonia, bacteremia, acute kidney injury, hyponatremia, AFib RVR status post DC cardioversion 06/03: Intubated 06/08: Spontaneous Pneumothorax status post small bore chest tube by ER physician 06/09/2024: Patient seen and examined in the ICU, remains intubated on CMV mode of ventilation, peep 10, FiO2 70%. Last night patient was tachypneic, tachycardic, decreasing O2 sats, stat chest x-ray showed spontaneous pneumothorax status post small bore chest tube placed by the ER physician with almost resolution of the pneumothorax. Urine output has been adequate, sodium levels have normalized, sedated with fentanyl, Versed infusion. Patient also on Nimbex which was started last night after his spontaneous pneumothorax.. Urine output has been adequate, patient is afebrile. Heparin infusion was discontinued due to chest tube placement. Patient currently in sinus rhythm, rate controlled Review of Systems Review of Systems: ROS unobtainable: Yes unobtainable due to medical condition and unobtainable due to mental status Exam Narrative: General: Intubated, sedated, in no acute distress HEENT: Pupils equal and reactive, sclera is clear Lungs/Chest: Coarse breath sounds bilaterally right worse than left, bilateral rales, decreased breath sounds at bases, otherwise adequate air entry, ETT in place, chest tube in place with no air leak Cardiac: Sinus rhythm, rate controlled Circulation: Pedal pulses are intact and symmetrical. Abdomen: Soft, nontender, nondistended, hypoactive bowel sounds Extremities: 1+ edema bilateral lower extremities : Jimenez in place Neurologic: Intubated, sedated. On Nimbex for ventilator synchrony. Skin: No skin lesions or rash noted Objective Data Vital Signs Vital Signs: Vital Signs - 24 hr 06/08/24 11:45 06/08/24 11:45 06/08/24 12:00 Temperature 99.1 F Pulse Rate 89 87 75 Respiratory Rate 28 H 28 H 26 H Blood Pressure 141/87 H Pulse Oximetry 98 Oxygen Delivery Fraction of Inspired Oxygen 06/08/24 12:00 06/08/24 12:00 06/08/24 12:00 Temperature Pulse Rate 92 81 Respiratory Rate 28 H Blood Pressure Pulse Oximetry 96 Oxygen Delivery Mechanical Ventilation Fraction of Inspired Oxygen 40 40 06/08/24 12:00 06/08/24 12:00 06/08/24 13:05 Temperature Pulse Rate 81 79 78 Respiratory Rate 28 H 28 H Blood Pressure Pulse Oximetry 98 Oxygen Delivery Mechanical Ventilation Fraction of Inspired Oxygen 40 06/08/24 13:05 06/08/24 13:15 06/08/24 13:37 Temperature Pulse Rate 78 76 76 Respiratory Rate 26 H 26 H 28 H Blood Pressure Pulse Oximetry Oxygen Delivery Fraction of Inspired Oxygen 06/08/24 13:37 06/08/24 14:00 06/08/24 14:00 Temperature 98.9 F Pulse Rate 76 90 78 Respiratory Rate 27 H 19 28 H Blood Pressure 139/72 Pulse Oximetry 98 Oxygen Delivery Fraction of Inspired Oxygen 06/08/24 14:00 06/08/24 16:00 06/08/24 16:00 Temperature Pulse Rate 83 94 Respiratory Rate 28 H Blood Pressure Pulse Oximetry Oxygen Delivery Fraction of Inspired Oxygen 40 06/08/24 16:00 06/08/24 16:00 06/08/24 16:00 Temperature 99.3 F Pulse Rate 94 82 79 Respiratory Rate 26 H 28 H 28 H Blood Pressure 133/75 Pulse Oximetry 97 98 Oxygen Delivery Mechanical Ventilation Fraction of Inspired Oxygen 40 06/08/24 16:00 06/08/24 16:15 06/08/24 16:30 Temperature Pulse Rate 79 91 79 Respiratory Rate 28 H 28 H Blood Pressure Pulse Oximetry 99 Oxygen Delivery Mechanical Ventilation Fraction of Inspired Oxygen 40 06/08/24 17:57 06/08/24 17:57 06/08/24 18:00 Temperature Pulse Rate 103 H 103 H 116 H Respiratory Rate 28 H 28 H Blood Pressure Pulse Oximetry Oxygen Delivery Fraction of Inspired Oxygen 06/08/24 18:00 06/08/24 18:00 06/08/24 18:00 Temperature 99.5 F Pulse Rate 110 H 81 81 Respiratory Rate 28 H 28 H 27 H Blood Pressure 133/96 H Pulse Oximetry 95 Oxygen Delivery Fraction of Inspired Oxygen 06/08/24 19:40 06/08/24 20:00 06/08/24 20:00 Temperature Pulse Rate 118 H 125 H 125 H Respiratory Rate 34 H Blood Pressure Pulse Oximetry 98 95 Oxygen Delivery Mechanical Ventilation Mechanical Ventilation Fraction of Inspired Oxygen 40 60 06/08/24 20:00 06/08/24 20:00 06/08/24 20:00 Temperature 99.6 F Pulse Rate 125 H 125 H Respiratory Rate 34 H 34 H Blood Pressure 142/92 H Pulse Oximetry 90 Oxygen Delivery Fraction of Inspired Oxygen 60 06/08/24 20:00 06/08/24 20:03 06/08/24 20:10 Temperature Pulse Rate 125 H 120 H 125 H Respiratory Rate 34 H 26 H 26 H Blood Pressure Pulse Oximetry Oxygen Delivery Fraction of Inspired Oxygen 06/08/24 20:55 06/08/24 21:00 06/08/24 21:00 Temperature 99.4 F Pulse Rate 98 118 H 118 H Respiratory Rate 28 H 25 H 25 H Blood Pressure 151/99 H Pulse Oximetry 99 99 Oxygen Delivery Mechanical Ventilation Fraction of Inspired Oxygen 60 06/08/24 21:10 06/08/24 21:41 06/08/24 22:00 Temperature Pulse Rate 98 98 97 Respiratory Rate 28 H Blood Pressure Pulse Oximetry Oxygen Delivery Fraction of Inspired Oxygen 06/08/24 22:00 06/08/24 22:00 06/08/24 22:00 Temperature 99.0 F Pulse Rate 97 97 97 Respiratory Rate 28 H 24 H 24 H Blood Pressure 143/69 H Pulse Oximetry 99 Oxygen Delivery Fraction of Inspired Oxygen 06/08/24 22:37 06/08/24 23:00 06/09/24 00:00 Temperature 99.2 F Pulse Rate 78 83 98 Respiratory Rate 28 H 28 H Blood Pressure 143/69 H Pulse Oximetry 99 99 100 Oxygen Delivery Mechanical Ventilation Mechanical Ventilation Fraction of Inspired Oxygen 70 40 06/09/24 00:00 06/09/24 00:00 06/09/24 00:00 Temperature 99.8 F H Pulse Rate 98 98 Respiratory Rate 26 H Blood Pressure 146/73 H Pulse Oximetry 100 Oxygen Delivery Fraction of Inspired Oxygen 40 06/09/24 00:00 06/09/24 01:12 06/09/24 01:12 Temperature Pulse Rate 96 105 H 105 H Respiratory Rate 26 H 33 H Blood Pressure Pulse Oximetry 100 Oxygen Delivery Mechanical Ventilation Fraction of Inspired Oxygen 70 06/09/24 01:17 06/09/24 01:36 06/09/24 01:36 Temperature 100.4 F H Pulse Rate 111 H 120 H 98 Respiratory Rate 30 H 30 H 30 H Blood Pressure 147/92 H Pulse Oximetry 97 100 Oxygen Delivery Mechanical Ventilation Fraction of Inspired Oxygen 40 06/09/24 01:56 06/09/24 01:56 06/09/24 02:00 Temperature Pulse Rate 104 H 98 114 H Respiratory Rate 28 H 30 H Blood Pressure Pulse Oximetry 100 Oxygen Delivery Mechanical Ventilation Fraction of Inspired Oxygen 40 06/09/24 02:00 06/09/24 02:00 06/09/24 02:00 Temperature 100.4 F H Pulse Rate 115 H 102 H 102 H Respiratory Rate 30 H 30 H Blood Pressure 136/74 Pulse Oximetry 99 Oxygen Delivery Fraction of Inspired Oxygen 06/09/24 02:30 06/09/24 02:30 06/09/24 03:00 Temperature 100.4 F H 100.5 F H Pulse Rate 131 H 132 H 122 H Respiratory Rate 26 H 26 H Blood Pressure 145/91 H Pulse Oximetry 99 99 Oxygen Delivery Fraction of Inspired Oxygen 06/09/24 03:03 06/09/24 03:56 06/09/24 03:59 Temperature Pulse Rate 124 H 124 H 125 H Respiratory Rate 28 H 26 H Blood Pressure 145/91 H Pulse Oximetry 99 Oxygen Delivery Mechanical Ventilation Fraction of Inspired Oxygen 40 06/09/24 03:59 06/09/24 04:00 06/09/24 04:00 Temperature 99.6 F Pulse Rate 122 H 123 H Respiratory Rate 26 H 26 H Blood Pressure 156/81 H Pulse Oximetry 99 Oxygen Delivery Fraction of Inspired Oxygen 40 06/09/24 04:00 06/09/24 04:37 06/09/24 05:28 Temperature 99.5 F Pulse Rate 126 H 111 H 125 H Respiratory Rate 26 H 26 H Blood Pressure 150/83 H Pulse Oximetry 100 100 Oxygen Delivery Mechanical Ventilation Fraction of Inspired Oxygen 70 06/09/24 05:29 06/09/24 05:30 06/09/24 06:00 Temperature 99.4 F Pulse Rate 126 H 98 112 H Respiratory Rate 26 H Blood Pressure 164/96 H Pulse Oximetry 100 Oxygen Delivery Fraction of Inspired Oxygen 06/09/24 06:00 06/09/24 06:00 06/09/24 06:00 Temperature Pulse Rate 109 H 109 H 109 H Respiratory Rate 26 H 26 H 28 H Blood Pressure 169/96 H Pulse Oximetry Oxygen Delivery Fraction of Inspired Oxygen 06/09/24 07:00 06/09/24 08:00 06/09/24 08:00 Temperature Pulse Rate 104 H 103 H 103 H Respiratory Rate 28 H 28 H 28 H Blood Pressure 170/102 H Pulse Oximetry 100 Oxygen Delivery Mechanical Ventilation Fraction of Inspired Oxygen 60 06/09/24 08:00 06/09/24 08:00 06/09/24 08:00 Temperature 99.3 F Pulse Rate 103 H 103 H Respiratory Rate 26 H Blood Pressure 151/101 H Pulse Oximetry 100 Oxygen Delivery Fraction of Inspired Oxygen 40 06/09/24 08:10 06/09/24 08:10 06/09/24 08:22 Temperature Pulse Rate 109 H 109 H 102 H Respiratory Rate 26 H 26 H Blood Pressure Pulse Oximetry 100 Oxygen Delivery Mechanical Ventilation Fraction of Inspired Oxygen 70 06/09/24 08:22 06/09/24 08:23 06/09/24 08:23 Temperature Pulse Rate 102 H 102 H 100 Respiratory Rate Blood Pressure Pulse Oximetry 100 Oxygen Delivery Mechanical Ventilation Fraction of Inspired Oxygen 60 06/09/24 10:00 06/09/24 10:00 06/09/24 10:51 Temperature Pulse Rate 107 H 108 H 75 Respiratory Rate 28 H 28 H Blood Pressure Pulse Oximetry 99 Oxygen Delivery Mechanical Ventilation Fraction of Inspired Oxygen 50 Intake/Output Intake/Output: Intake & Output 06/06/24 06/07/24 06/08/24 06/09/24 23:59 23:59 23:59 23:59 Intake Total 2863.9 2655.5 3286.7 1280.8 Output Total 2575 5025 2600 1100 Balance 288.9 -2369.5 686.7 180.8 Meds/Results Medications: Active Medications Generic Name Dose Route Start Last Admin Trade Name Freq PRN Reason Stop Dose Admin Acetaminophen 650 mg 06/03/24 13:56 Acetaminophen Elixir 325 Mg/10.15 Ml Udc FEED TUBE Q4H PRN Fever Albuterol/Ipratropium 3 ml 06/03/24 13:50 Ipratropium 0.5 Mg/Albuterol Sulfate 2.5 Mg Ampul.Neb 3 Ml INHALATION Q6HRT PRN Wheezng Albuterol/Ipratropium 3 ml 06/03/24 20:00 06/09/24 08:10 Ipratropium 0.5 Mg/Albuterol Sulfate 2.5 Mg Ampul.Neb 3 Ml INHALATION 3 ml Q6HRT ARABELLA Administration Amiodarone HCl 400 mg 06/06/24 09:40 06/09/24 08:23 Amiodarone Hcl 200 Mg Tablet PO 06/13/24 09:39 400 mg Q12HR ARABELLA Administration Amiodarone HCl 200 mg 06/14/24 08:00 Amiodarone Hcl 200 Mg Tablet PO DAILY@0800 ARABELLA Dextrose 12.5 gm 06/03/24 13:46 Dextrose 50% 25 Gm/50 Ml Syringe IV PUSH PRN PRN Hypoglycemia Protocol Glucagon 1 mg 06/03/24 13:46 Glucagon For Inj 1 Mg Vial IM PRN PRN Hypoglycemia Protocol Glucose 15 gm 06/03/24 13:46 Glucose Oral Gel 15 Gm Of Glucse In 37.5 Gm Tube PO PRN PRN Hypoglycemia Protocol Heparin Sodium (Porcine) 6,000 units 06/03/24 12:33 06/04/24 23:06 Heparin Sodium 5,000 Units/Ml Vial IV PUSH 6,000 units PRN PRN Administration aPTT less than 55 seconds Heparin Sodium (Porcine) 3,000 units 06/03/24 12:33 06/06/24 05:43 Heparin Sodium 5,000 Units/Ml Vial IV PUSH 3,000 units PRN PRN Administration aPTT 55 - 70 seconds Hydrocortisone Sodium Succinate 50 mg 06/09/24 02:00 06/09/24 02:50 Hydrocortisone Sodium Succinate 100 Mg/2 Ml Vial IV PUSH 06/11/24 01:59 50 mg Q12H ARABELLA Administration Heparin Sodium/Dextrose 25,000 units in 250 mls @ 0 mls/hr 06/03/24 12:35 06/08/24 21:45 Heparin Sodium/D5w 100 Units/Ml IV CONT Not Given .Q0M ARABELLA Protocol Dextrose 1,000 mls @ 100 mls/hr 06/03/24 13:46 Dextrose 5% 1,000 Ml IVPB PRN PRN Hypoglycemia Protocol Fentanyl Citrate 2,500 mcg in 250 mls @ 10 mls/hr 06/03/24 13:50 06/09/24 10:00 Fentanyl 2,500 Mcg/Ns 250 Ml IV CONT 100 mcg/hr .Q25H ARABELLA 10 mls/hr Titration Protocol 100 MCG/HR Midazolam HCl 100 mg in 100 mls @ 4 mls/hr 06/03/24 13:50 06/09/24 10:00 Versed 100 Mg/Ns 100 Ml IV CONT 4 mg/hr .Q25H ARABELLA 4 mls/hr Titration Protocol 4 MG/HR Norepinephrine Bitartrate 8 mg in 250 mls @ 0 mls/hr 06/03/24 17:50 06/06/24 17:43 Levophed 8 Mg/D5w 250 Ml IV CONT Infused .Q0M ARABELLA Titration Protocol 0 MCG/MIN Cefepime HCl 2 gm in 50 mls @ 100 mls/hr 06/04/24 15:00 06/09/24 03:29 Maxipime 2 Gm/Ns 50 Ml IVPB Infused Q12H ARABELLA Infusion Micafungin Sodium 100 mg/ 100 mls @ 100 mls/hr 06/08/24 09:00 06/09/24 08:24 Sodium Chloride IVPB 100 mls/hr DAILY ARABELLA Administration Vancomycin HCl 1,500 mg in 500 mls @ 250 mls/hr 06/09/24 04:00 06/09/24 04:20 Vancomycin 1,500 Mg/Ns 500 Ml IVPB 250 mls/hr Q18H ARABELLA Administration Cisatracurium Besylate 200 mg/ 100 mls @ 0 mls/hr 06/09/24 03:00 06/09/24 07:00 Sodium Chloride IVPB 0 mcg/kg/min .Q0M ARABELLA 0 mls/hr Titration Protocol Insulin Aspart 3 - 6 units 06/03/24 18:00 06/09/24 06:25 Insulin Aspart (*Bkc) 100 Units/Ml SUB-Q Not Given Q6HR [facility] Protocol Insulin Glargine 5 units 06/09/24 09:00 06/09/24 08:28 Insulin Glargine (*Bkc) 100 Units/Ml SUB-Q 5 units DAILY ARABELLA Administration Metoprolol Tartrate 50 mg 06/09/24 09:00 06/09/24 08:23 Metoprolol Tartrate 50 Mg Tab FEED TUBE 50 mg Q12HR ARABELLA Administration Midazolam HCl 2 mg 06/03/24 13:48 06/03/24 16:40 Midazolam Hcl (*Crx) 2 Mg/2 Ml Vial IV PUSH 2 mg Q5M PRN Administration ventilator asynchrony Miscellaneous Information 0 each 06/08/24 00:01 06/09/24 03:32 Ivs In Normal Saline (If Possible) XX 07/08/24 00:00 1 each CLARIFY ARABELLA Administration Multi-Ingred Cream/Lotion/Oil/Oint 1 applic 06/03/24 14:00 06/09/24 08:23 Mineral Oil/White Petrolatum Ointment EACH EYE 1 applic Q12HR ARABELLA Administration Pantoprazole Sodium 40 mg 06/04/24 09:00 06/09/24 08:24 Pantoprazole Sodium Iv 40 Mg Vial IV PUSH 40 mg QAM ARABELLA Administration Polyethylene Glycol 17 gm 06/09/24 10:25 Polyethylene Glycol 3350 17 Gm Powd.Pack PO QAM ARABELLA Sodium Chloride 10 ml 06/03/24 22:00 06/09/24 06:26 Central Line Flush IV PUSH 10 ml Q8HR ARABELLA Administration Sodium Chloride 20 ml 06/03/24 19:36 Central Line Flush IV PUSH PRN PRN after blood draws Radiology Results: ITS Impressions Chest/Abdomen/Pelvis CT 06/03/24 17:44 IMPRESSION: Dense bilateral pulmonary infiltrates. Loculated dense effusion within the left upper lobe, similar to what one might see with an adjacent fracture. Although, significant respiratory artifact renders this evaluation limited. Perhaps once adequate resuscitation has been performed and lung findings are improving repeat imaging may be attempted with intravenous contrast, in order to evaluate for the presence or absence of acute traumatic injury. Hepatosplenomegaly. Free fluid within the deep pelvis, never a normal finding in a male patient. Abdomen Ultrasound 06/05/24 08:52 IMPRESSION: 1. Small volume of ascites. Chest X-Ray 06/09/24 07:39 IMPRESSION: 1. Slight improvement in bilateral multifocal pneumonia mid and lower lung zones. 2. Endotracheal, nasogastric and left chest tubes in expected position as detailed above. Labs Labs: Laboratory Results - last 24 hr 06/03/24 06/03/24 06/08/24 18:20 23:48 11:47 WBC RBC Hgb Hct MCV MCH MCHC RDW Plt Count MPV Immature Gran % (Auto) Neut % (Auto) Lymph % (Auto) Towner % (Auto) Eos % (Auto) Baso % (Auto) Lymph # (Auto) Towner # (Auto) Eos # (Auto) Baso # (Auto) Abs Immat Gran (auto) Absolute Neuts (auto) Absolute Nucleated RBC Total Counted Neutrophils % (Manual) Band Neutrophils % Lymphocytes % (Manual) Monocytes % (Manual) Eosinophils % (Manual) Nucleated RBC % Abs Neuts (Manual) Abs Lymphs (Manual) Abs Monocytes (Manual) Absolute Eos (Manual) Atypical Lymphocytes Platelet Estimate Hypochromasia Anisocytosis Schistocytes APTT Puncture Site ABG pH ABG pCO2 ABG pO2 ABG PO2/FiO2 Ratio ABG HCO3 ABG O2 Saturation ABG O2 Content ABG Base Excess A-a Gradient Oxyhemoglobin Carboxyhemoglobin Methemoglobin Reduced Hemoglobin Total Hemoglobin O2 Delivery Device O2 Liters/Min Minute Volume Vent Rate Vent Mode FiO2 Tidal Volume PEEP Peak Inspir Pressure Pressure Support Sodium Potassium Chloride Carbon Dioxide Anion Gap BUN Creatinine Estim Creat Clear Calc Estimated GFR Glucose POC Capillary Glucose 194 H Serum Osmolality 266 L Calcium Phosphorus Total Bilirubin AST ALT Alkaline Phosphatase Total Protein Albumin Mycoplasma pneumon IgM 30 06/08/24 06/08/24 06/08/24 15:35 19:09 20:02 WBC RBC Hgb Hct MCV MCH MCHC RDW Plt Count MPV Immature Gran % (Auto) Neut % (Auto) Lymph % (Auto) Towner % (Auto) Eos % (Auto) Baso % (Auto) Lymph # (Auto) Towner # (Auto) Eos # (Auto) Baso # (Auto) Abs Immat Gran (auto) Absolute Neuts (auto) Absolute Nucleated RBC Total Counted Neutrophils % (Manual) Band Neutrophils % Lymphocytes % (Manual) Monocytes % (Manual) Eosinophils % (Manual) Nucleated RBC % Abs Neuts (Manual) Abs Lymphs (Manual) Abs Monocytes (Manual) Absolute Eos (Manual) Atypical Lymphocytes Platelet Estimate Hypochromasia Anisocytosis Schistocytes APTT 124.6 H Puncture Site Left radial ABG pH 7.485 H ABG pCO2 41.2 ABG pO2 63.7 L ABG PO2/FiO2 Ratio 0.91 ABG HCO3 30.3 H ABG O2 Saturation 93.8 L ABG O2 Content 13.9 L ABG Base Excess 6.4 A-a Gradient 391.1 Oxyhemoglobin 92.2 Carboxyhemoglobin Methemoglobin Reduced Hemoglobin Total Hemoglobin 10.7 L O2 Delivery Device Ventilator O2 Liters/Min Not Reportable Minute Volume Not Reportable Vent Rate 26 Vent Mode Cmv FiO2 70 Tidal Volume 450 PEEP 10 Peak Inspir Pressure Not Reportable Pressure Support Not Reportable Sodium Potassium Chloride Carbon Dioxide Anion Gap BUN Creatinine Estim Creat Clear Calc Estimated GFR Glucose POC Capillary Glucose 226 H Serum Osmolality Calcium Phosphorus Total Bilirubin AST ALT Alkaline Phosphatase Total Protein Albumin Mycoplasma pneumon IgM 06/09/24 06/09/24 06/09/24 02:38 04:03 04:40 WBC 22.5 H RBC 3.09 L Hgb 9.5 L Hct 28.7 L MCV 92.9 MCH 30.7 MCHC 33.1 RDW 14.2 Plt Count 246 MPV 9.3 Immature Gran % (Auto) Not Reportable Neut % (Auto) Not Reportable Lymph % (Auto) Not Reportable [place] % (Auto) Not Reportable Eos % (Auto) Not Reportable Baso % (Auto) Not Reportable Lymph # (Auto) Not Reportable [place] # (Auto) Not Reportable Eos # (Auto) Not Reportable Baso # (Auto) Not Reportable Abs Immat Gran (auto) Not Reportable Absolute Neuts (auto) Not Reportable Absolute Nucleated RBC Not Reportable Total Counted 100 Neutrophils % (Manual) 75 H Band Neutrophils % 7 H Lymphocytes % (Manual) 14.0 L Monocytes % (Manual) 3 Eosinophils % (Manual) 1 Nucleated RBC % Not Reportable Abs Neuts (Manual) 18.45 H Abs Lymphs (Manual) 3.15 Abs Monocytes (Manual) 0.67 Absolute Eos (Manual) 0.22 Atypical Lymphocytes Present Platelet Estimate Adequate Hypochromasia 1+ Anisocytosis 1+ Schistocytes Rare APTT 24.1 Puncture Site Right radial ABG pH 7.336 L ABG pCO2 62.1 H* ABG pO2 353.0 H ABG PO2/FiO2 Ratio 5.04 ABG HCO3 32.5 H ABG O2 Saturation 99.7 ABG O2 Content 16.4 ABG Base Excess 5.2 A-a Gradient 79.3 Oxyhemoglobin 99.0 Carboxyhemoglobin 0.3 Methemoglobin 0.4 Reduced Hemoglobin 0.3 Total Hemoglobin 11.1 L O2 Delivery Device Ventilator O2 Liters/Min Not Reportable Minute Volume Not Reportable Vent Rate 26 Vent Mode Cmv FiO2 70 Tidal Volume 450 PEEP 10 Peak Inspir Pressure Not Reportable Pressure Support Not Reportable Sodium 144 Potassium 4.7 Chloride 105 Carbon Dioxide 34 H Anion Gap 5 BUN 78 H Creatinine 1.07 Estim Creat Clear Calc 71 Estimated GFR > 60 Glucose 192 H POC Capillary Glucose 220 H Serum Osmolality Calcium 8.3 L Phosphorus 3.6 Total Bilirubin 0.6 AST 84 H ALT 50 Alkaline Phosphatase 103 Total Protein 6.0 L Albumin 2.7 L Mycoplasma pneumon IgM Quality VTE Prophylaxis VTE prophylaxis: pharmacologic ordered (currently on heparin drip)
[2024-06-09 11:43] LABS: Glucose Point of Care 173 mg/dl (65-105)
[2024-06-09] MEDS: FENTANYL 2,500MCG/NS250ML(*CRX 2,500 MCG/250 ML BAG 10 MCG IV CONT (12:17)
[2024-06-09] MEDS: MIDAZOLAM 100MG/NS 100ML(*CRX) 100 MG/100 ML BAG IV CONT (12:18)
[2024-06-09] MEDS: polyethylene glycoL 3350 17 GM POWD.PACK PO (12:19)
[2024-06-09] MEDS: ENOXAPARIN 40 MG/0.4 ML SYRINGE SUB-Q (12:19)
[2024-06-09 17:52] LABS: Glucose Point of Care 176 mg/dl (65-105)
[2024-06-09 23:26] LABS: Vancomycin Trough 11.1 ug/mL (10.0-20.0)
[2024-06-10] VITALS (59 sets, daily range): BP systolic 132–168; BP diastolic 64–98; PULSE 82–125; RESP 18–37; TEMP 37.9–38.6; O2SAT 89–100
[2024-06-10] MEDS: VANCOMYCIN 1,500 MG/NS 500 ML 1,500 MG/500 ML BAG 250 MG IVPB ×2 (00:07→11:33)
[2024-06-10 00:24] LABS: Glucose Point of Care 134 mg/dl (65-105)
[2024-06-10] MEDS: IPRATROPIUM 0.5 MG/ALBUTEROL SULFATE 2.5 MG AMPUL.NEB 3 ML INHALATION ×4 (02:34→20:49)
[2024-06-10] MEDS: HYDROCORTISONE SODIUM SUCCINATE 100 MG/2 ML VIAL 50 MG IV PUSH ×2 (03:22→11:33)
[2024-06-10] MEDS: CEFEPIME 2 GM/NS 50 ML 2 GM/50 ML BAG IVPB ×2 (03:23→13:47)
[2024-06-10] MEDS: FENTANYL 2,500MCG/NS250ML(*CRX 2,500 MCG/250 ML BAG 20 MCG IV CONT (03:24)
[2024-06-10 05:06] LABS: Alveolar/Arterial O2 Gradient 145.1 mmHg; Carboxyhemoglobin 0.3 % THb (0-2.0); Fractional Inspired Oxygen 40 %; HCO3 ABG 30.8 mEq/l (22.0-26.0); Methemoglobin ABG 0.1 %THb (0-1.5); Oxygen Content ABG 13.7 %vol (16.0-22.0); Oxygen Saturation ABG 97.7 % (95.0-100.0); Oxyhemoglobin 97.1 % THb (90.0-100.0); PCO2 ABG 40.4 mmHg (35.0-45.0); PO2 ABG 93.6 mmHg (80.0-100.0); PO2 FiO2 Ratio Arterial Blood 2.34 %; Reduced Hemoglobin 2.5 %THb (0-5.0); Total Hemoglobin 9.9 g/dL (12.0-18.0)
[2024-06-10 05:11] LABS: Device VENTILATOR; Modified Allen's Test Pass; Site Drawn RIGHT RADIAL
[2024-06-10 05:12] LABS: Arterial Blood Gas PEEP 8 cmH2O; Arterial Blood Gas Tidal Volume 450 ml; Arterial Blood Gas Vent Mode CMV; Arterial Blood Gas Ventilator rate 26 /MIN
[2024-06-10 05:48] LABS: Hemoglobin 9.2 g/dL (14.0-18.0); Mean Corpuscular HGB Conc 31.7 g/dl (32-36); Mean Corpuscular Hemoglobin 30.2 pg (26-34); Mean Corpuscular Volume 95.1 fl (80-100); Mean Platelet Volume 9.4 fl (7.4-10.4); Platelet Count Result 270 k/mm3 (150-375); Red Blood Count 3.05 M/mm3 (4.6-6.20); Red Cell Distribution Width 14.2 % (11.5-14.5); White Blood Count 22.5 K/mm3 (4.5-10.0)
[2024-06-10 06:04] LABS: Alanine Aminotransferase 35 U/L (6-50); Albumin Level 2.4 g/dL (3.5-5.1); Alkaline Phosphatase 90 U/L (38-126); Anion Gap 3 mmol/L (4-12); Aspartate Amino Transferase 55 U/L (17-59); Bilirubin,Total 0.6 mg/dL (0.2-1.3); Blood Urea Nitrogen 62 mg/dL (9-20); Calcium 8.5 mg/dL (8.4-10.2); Carbon Dioxide 34 mmol/L (22-30); Chloride 112 mmol/L (98-107); Estimated CRCL calculation 75 ml/min; Estimated Glomerular Filt Rate > 60; Glucose 124 mg/dL (65-110); Magnesium 2.3 mg/dL (1.6-2.3); Phosphorus 2.8 mg/dL (2.5-4.5); Potassium 4.4 mmol/L (3.4-5.0); Sodium 149 mmol/L (137-145)
[2024-06-10 06:20] LABS: Band Neutrophils Percent 8 % (0-6); Lymphocytes Absolute Manual 1.57 K/mm3 (1.1-4.5); Metamyelocytes Percent 1 %; Monocytes Absolute Manual 0.67 K/mm3 (0.1-0.90); Monocytes Percent Manual 3 % (3-9); Neutrophils Absolute Manual 20.02 K/mm3 (1.3-6.7); Neutrophils Percent Manual 81 % (46-73); Total Cells Counted 100
[2024-06-10 06:22] LABS: Platelet Estimate Adequate (Adequate); Schistocytes None Seen
[2024-06-10] MEDS: ACETAMINOPHEN ELIXIR 325 MG/10.15 ML UDC 650 MG FEED TUBE (07:04)
[2024-06-10] MEDS: MIDAZOLAM 100MG/NS 100ML(*CRX) 100 MG/100 ML BAG IV CONT (08:09)
[2024-06-10] MEDS: CENTRAL LINE FLUSH 10 ML IV PUSH ×3 (08:11→21:41)
--- NOTE | 2024-06-10 08:20 | P.PNIM_ITS ---
Progress Note: A&P Assessment and Plan (1) Septic shock: Code(s): A41.9 - Sepsis, unspecified organism; R65.21 - Severe sepsis with septic shock Status: Acute Assessment and Plan: Patient was hypotension refractory to IV fluids so pressors started. Etiology likely related to sespsis from pneumococcal pneumonia and bacteremia Patient received adequate amount of IV fluids BCx 06/03: Streptococcus pneumonia 05/13 bottles Lactic acid 2.6 but now has normalized Currently off Levophed (06/05) and vasopressin (06/06) Completed Doxycycline 06/08 Repeat BCx 06/06: growing Shakira albicans and Staph epidermidis (contaminant?); 2nd set NGTD Echo 06/05 with EF 30-35%, grade I diastolic dysfxn, mild valve disease and PASP 34. Repeat BCx 06/08 NGTD WBC elevated but stable today. Having recurrent fevers. Continue to maintain MAP > 65 mm Hg or SBP > 100 mm Hg Continue vancomycin and cefepime (06/03); Micafungin added (06/08). Consider stopping cefepime and adding ESBL coverage with meropenem. Continue stress dose steroids (06/03) (2) Acute respiratory failure: Code(s): J96.00 - Acute respiratory failure, unspecified whether with hypoxia or hypercapnia Status: Acute Assessment and Plan: Acute respiratory failure secondary to pneumonia and influenza -06/03: intubated in the ER and patient was proned for approximately 20 hours Influenza A positive; negative for COVID, RSV Urine Legionella Ag negative. Urine pneumococcal Ag positive. Mycoplasma IgM negative. CT Chest/Abd/Pelvis 06/03: * Dense bilateral pulmonary infiltrates with loculated dense effusion within the left upper lobe, similar to what one might see with an adjacent fracture. Although, significant respiratory artifact renders this evaluation limited.Perhaps once adequate resuscitation has been performed and lung findings are improving repeat imaging may be attempted with intravenous contrast, in order to evaluate for the presence or absence of acute traumatic injury. * Hepatosplenomegaly. * Free fluid within the deep pelvis, never a normal finding in a male patient. Sedated with fentanyl, Versed. Was off Nimbex but resumed; now off again ABG noted. Vent management per hair rooting machine operator. (3) Spontaneous pneumothorax: Code(s): J93.83 - Other pneumothorax Status: Acute Assessment and Plan: Patient decompensated with workup revealing a left PTX Chest tube placed with good response evening 06/08. Chest tube management per hair rooting machine operator. Try to minimize barotrauma. (4) Fungemia: Code(s): B49 - Unspecified mycosis Status: Acute Assessment and Plan: As above. Etiology unclear. Consider fungal PNA. HIV was negative on 06/03 (5) Pneumonia: Code(s): J18.9 - Pneumonia, unspecified organism Status: Acute Assessment and Plan: See above (6) Hyponatremia: Code(s): E87.1 - Hypo-osmolality and hyponatremia Status: Acute Assessment and Plan: Hyponatremia with sodium levels of 117 on admission. Etiology not clear but consider excessive water intake, PNA, pain, SIADH, CHF and/or SSRI Patient received adequate IV fluids Na level was climbing slowly but jumped to 132. Despite D5W and Desmopressin, sodium climbed to normal Nephrology following and appreciate their input. Continue to monitor sodium levels (7) SABA (acute kidney injury): Code(s): N17.9 - Acute kidney failure, unspecified Status: Acute Assessment and Plan: Baseline creatinine unknown Presented with creatinine of 1.5 for which could be secondary to sepsis and hypovolemia Status post IV fluids Appreciate nephrology following the patient 06/03: CTA chest abdomen pelvis did not show any hydronephrosis renal calculi Jimenez in place, urine output has improved; probably post-ATN diuresis Urine lytes reflective of prerenal picture, patient has had adequate IV fluids No contrast exposure Cr trending down and now normal. Continue to monitor urine output, electrolytes and renal function (8) Atrial fibrillation with RVR: Code(s): I48.91 - Unspecified atrial fibrillation Status: Acute Assessment and Plan: Status post DC cardioversion in ER. Currently on heparin infusion. Appreciate cardiology evaluation and recommendations Echo 06/05 with EF 30-35%, grade I diastolic dysfxn, mild valve disease and PASP 34. Patient received amiodarone bolus x2 then Amiodrone drip. He has been deescalated to oral Amiodarone. Was on Heparin drip but held due to PTX. Changed to therapeutic Lovenox now. Monitor on tele (9) Elevated brain natriuretic peptide (BNP) level: Code(s): R79.89 - Other specified abnormal findings of blood chemistry Status: Acute Assessment and Plan: Patient has elevated BNP of 4190, although no evidence of volume overload CT chest showed multifocal pneumonia Echocardiogram was above Follow (10) Hypertension: Code(s): I10 - Essential (primary) hypertension Status: Acute Assessment and Plan: Holding all antihypertensives due to low BP from shock Off pressors now Follow (11) Influenza A: Code(s): J10.1 - Influenza due to other identified influenza virus with other respiratory manifestations Status: Acute Assessment and Plan: Patient was tested positive for influenza A He completed a course of Tamiflu 06/09/24 (12) Schizophrenia: Code(s): F20.9 - Schizophrenia, unspecified Status: Acute Assessment and Plan: History of schizophrenia and other behavior issues Unknown if he takes any medications Plan DVT prophylaxis - Lovenox Stress ulcer prophylaxis -Protonix Code Status -DNR Subjective Date/time seen: 06/10/24 08:20 Interval history: 49yo male smoker with history of HTN, schizophrenia, suicide attempt, depression, and possible alcohol abuse who presented to the emergency department via EMS from [facility] after he was found to have abnormal vital signs. Patient with acute respiratory failure, pneumonia, bacteremia, acute kidney injury, hyponatremia, and AFib RVR status post DC cardioversion. Patient remains intubated, sedated. Sedation holiday planned for today. Review of Systems Review of Systems: ROS unobtainable: Yes unobtainable due to endotracheal tube Exam Narrative: Tm 101.5 149/86 101 26 99% MV Gen - Intubated, sedated HEENT - ETT and OG secured Chest - mildly coarse BS with left chest tube secured. CV - RRR S1/S2 with frequent extra beats. Tele showing PVCs Abd - Soft, Positive BS - Jimenez secured draining clear yellow urine Ext - mild diffuse edema. Rt femoral central line Psych - unable to assess Skin - Warm and dry Objective Data Vital Signs Vital Signs: Vital Signs - 24 hr 06/09/24 08:22 06/09/24 08:22 06/09/24 08:23 Temperature Pulse Rate 102 H 102 H 102 H Respiratory Rate 26 H Blood Pressure Pulse Oximetry 100 Oxygen Delivery Mechanical Ventilation Fraction of Inspired Oxygen 60 06/09/24 08:23 06/09/24 10:00 06/09/24 10:00 Temperature Pulse Rate 100 107 H 108 H Respiratory Rate 28 H 28 H Blood Pressure Pulse Oximetry Oxygen Delivery Fraction of Inspired Oxygen 06/09/24 10:00 06/09/24 10:00 06/09/24 10:00 Temperature Pulse Rate 85 77 102 H Respiratory Rate 23 H 26 H Blood Pressure 116/55 L Pulse Oximetry 99 Oxygen Delivery Fraction of Inspired Oxygen 06/09/24 10:00 06/09/24 10:51 06/09/24 12:00 Temperature Pulse Rate 100 75 86 Respiratory Rate 28 H 28 H Blood Pressure 0/0 L Pulse Oximetry 99 98 Oxygen Delivery Mechanical Ventilation Mechanical Ventilation Fraction of Inspired Oxygen 50 50 06/09/24 12:00 06/09/24 12:00 06/09/24 12:00 Temperature 99.5 F Pulse Rate 95 95 Respiratory Rate 28 H Blood Pressure 152/81 H Pulse Oximetry 99 Oxygen Delivery Fraction of Inspired Oxygen 50 06/09/24 12:00 06/09/24 12:00 06/09/24 12:17 Temperature Pulse Rate 91 93 92 Respiratory Rate 26 H 26 H 16 Blood Pressure Pulse Oximetry Oxygen Delivery Fraction of Inspired Oxygen 06/09/24 12:17 06/09/24 12:18 06/09/24 12:18 Temperature Pulse Rate 92 93 93 Respiratory Rate 16 16 16 Blood Pressure Pulse Oximetry Oxygen Delivery Fraction of Inspired Oxygen 06/09/24 14:00 06/09/24 14:00 06/09/24 14:00 Temperature 99.8 F H Pulse Rate 77 89 92 Respiratory Rate 25 H 28 H 26 H Blood Pressure 125/68 Pulse Oximetry 98 Oxygen Delivery Fraction of Inspired Oxygen 06/09/24 14:00 06/09/24 14:01 06/09/24 14:01 Temperature Pulse Rate 100 77 77 Respiratory Rate 28 H 30 H Blood Pressure 0/0 L Pulse Oximetry 99 Oxygen Delivery Mechanical Ventilation Fraction of Inspired Oxygen 50 06/09/24 14:11 06/09/24 16:00 06/09/24 16:00 Temperature 100 F H Pulse Rate 78 87 Respiratory Rate 27 H 15 Blood Pressure 132/75 Pulse Oximetry 98 Oxygen Delivery Fraction of Inspired Oxygen 40 06/09/24 16:00 06/09/24 16:00 06/09/24 16:00 Temperature Pulse Rate 87 82 89 Respiratory Rate 28 H 24 H 26 H Blood Pressure Pulse Oximetry 98 Oxygen Delivery Mechanical Ventilation Fraction of Inspired Oxygen 50 06/09/24 16:00 06/09/24 16:54 06/09/24 18:00 Temperature Pulse Rate 100 99 82 Respiratory Rate 28 H Blood Pressure 0/0 L Pulse Oximetry 98 Oxygen Delivery Mechanical Ventilation Fraction of Inspired Oxygen 40 06/09/24 18:00 06/09/24 18:00 06/09/24 18:00 Temperature Pulse Rate 84 79 91 Respiratory Rate 26 H 22 H 28 H Blood Pressure 133/79 Pulse Oximetry 98 Oxygen Delivery Fraction of Inspired Oxygen 06/09/24 18:00 06/09/24 20:00 06/09/24 20:00 Temperature Pulse Rate 100 87 100 Respiratory Rate 28 H 27 H Blood Pressure 0/0 L Pulse Oximetry 96 Oxygen Delivery Mechanical Ventilation Fraction of Inspired Oxygen 40 06/09/24 20:00 06/09/24 20:00 06/09/24 20:00 Temperature 100.2 F H Pulse Rate 100 105 H Respiratory Rate 28 H 30 H Blood Pressure 127/69 Pulse Oximetry 98 Oxygen Delivery Fraction of Inspired Oxygen 40 06/09/24 20:00 06/09/24 20:47 06/09/24 20:50 Temperature Pulse Rate 105 H 78 91 Respiratory Rate 30 H 26 H Blood Pressure Pulse Oximetry 99 Oxygen Delivery Mechanical Ventilation Fraction of Inspired Oxygen 40 06/09/24 20:53 06/09/24 22:00 06/09/24 22:00 Temperature 100.2 F H Pulse Rate 87 99 99 Respiratory Rate 27 H 28 H Blood Pressure 137/84 Pulse Oximetry 96 Oxygen Delivery Fraction of Inspired Oxygen 06/09/24 22:00 06/09/24 22:00 06/09/24 22:36 Temperature Pulse Rate 99 99 96 Respiratory Rate 30 H 30 H Blood Pressure Pulse Oximetry Oxygen Delivery Fraction of Inspired Oxygen 06/09/24 22:37 06/09/24 23:14 06/09/24 23:15 Temperature Pulse Rate 92 92 92 Respiratory Rate 28 H Blood Pressure Pulse Oximetry 96 Oxygen Delivery Mechanical Ventilation Fraction of Inspired Oxygen 40 06/09/24 23:16 06/09/24 23:32 06/10/24 00:00 Temperature Pulse Rate 91 89 Respiratory Rate 30 H Blood Pressure Pulse Oximetry 94 Oxygen Delivery Mechanical Ventilation Fraction of Inspired Oxygen 40 40 06/10/24 00:00 06/10/24 00:09 06/10/24 02:00 Temperature 100.3 F H Pulse Rate 102 H 89 97 Respiratory Rate 30 H 30 H Blood Pressure 168/80 H Pulse Oximetry 94 Oxygen Delivery Fraction of Inspired Oxygen 06/10/24 02:00 06/10/24 02:00 06/10/24 02:00 Temperature 100.5 F H Pulse Rate 97 97 97 Respiratory Rate 30 H 30 H 30 H Blood Pressure 149/85 H Pulse Oximetry 97 Oxygen Delivery Fraction of Inspired Oxygen 06/10/24 02:34 06/10/24 02:37 06/10/24 02:44 Temperature Pulse Rate 94 103 H 98 Respiratory Rate 26 H 28 H Blood Pressure Pulse Oximetry 94 Oxygen Delivery Mechanical Ventilation Fraction of Inspired Oxygen 40 06/10/24 03:24 06/10/24 03:24 06/10/24 04:00 Temperature Pulse Rate 96 96 91 Respiratory Rate 28 H 28 H 28 H Blood Pressure Pulse Oximetry 95 Oxygen Delivery Mechanical Ventilation Fraction of Inspired Oxygen 40 06/10/24 04:00 06/10/24 04:00 06/10/24 04:00 Temperature 101.1 F H Pulse Rate 97 95 Respiratory Rate 28 H Blood Pressure 142/81 H Pulse Oximetry 95 Oxygen Delivery Fraction of Inspired Oxygen 40 06/10/24 04:00 06/10/24 04:00 06/10/24 04:56 Temperature Pulse Rate 95 95 92 Respiratory Rate 28 H 28 H Blood Pressure Pulse Oximetry 98 Oxygen Delivery Mechanical Ventilation Fraction of Inspired Oxygen 40 06/10/24 06:00 06/10/24 06:00 06/10/24 06:00 Temperature 101.1 F H Pulse Rate 86 86 86 Respiratory Rate 28 H 28 H Blood Pressure 149/86 H Pulse Oximetry 99 Oxygen Delivery Fraction of Inspired Oxygen 06/10/24 06:00 06/10/24 07:04 06/10/24 07:51 Temperature 101.5 F H Pulse Rate 86 113 H Respiratory Rate 28 H Blood Pressure Pulse Oximetry 99 Oxygen Delivery Mechanical Ventilation Fraction of Inspired Oxygen 40 06/10/24 07:51 06/10/24 08:09 06/10/24 08:09 Temperature Pulse Rate 113 H 101 H 93 Respiratory Rate 26 H 26 H 26 H Blood Pressure Pulse Oximetry Oxygen Delivery Fraction of Inspired Oxygen 06/10/24 08:13 Temperature Pulse Rate 101 H Respiratory Rate 26 H Blood Pressure Pulse Oximetry Oxygen Delivery Fraction of Inspired Oxygen Intake/Output Intake/Output: Intake & Output 06/07/24 06/08/24 06/09/24 03/02/25 23:59 23:59 23:59 23:59 Intake Total 2655.5 3286.7 2847.8 1416.1 Output Total 5025 2600 2725 1550 Balance -2369.5 686.7 122.8 -133.9 Meds/Results Medications: Active Medications Generic Name Dose Route Start Last Admin Trade Name Freq PRN Reason Stop Dose Admin Acetaminophen 650 mg 06/03/24 13:56 06/10/24 07:04 Acetaminophen Elixir 325 Mg/10.15 Ml Udc FEED TUBE 650 mg Q4H PRN Administration Fever Albuterol/Ipratropium 3 ml 06/03/24 13:50 Ipratropium 0.5 Mg/Albuterol Sulfate 2.5 Mg Ampul.Neb 3 Ml INHALATION Q6HRT PRN Wheezng Albuterol/Ipratropium 3 ml 06/03/24 20:00 06/10/24 07:51 Ipratropium 0.5 Mg/Albuterol Sulfate 2.5 Mg Ampul.Neb 3 Ml INHALATION 3 ml Q6HRT ARABELLA Administration Amiodarone HCl 400 mg 06/06/24 09:40 06/09/24 22:36 Amiodarone Hcl 200 Mg Tablet PO 06/13/24 09:39 400 mg Q12HR ARABELLA Administration Amiodarone HCl 200 mg 06/14/24 08:00 Amiodarone Hcl 200 Mg Tablet PO DAILY@0800 ARABELLA Dextrose 12.5 gm 06/03/24 13:46 Dextrose 50% 25 Gm/50 Ml Syringe IV PUSH PRN PRN Hypoglycemia Protocol Enoxaparin Sodium 40 mg 06/09/24 11:30 06/09/24 12:19 Enoxaparin 40 Mg/0.4 Ml Syringe SUB-Q 40 mg DAILY ARABELLA Administration Glucagon 1 mg 06/03/24 13:46 Glucagon For Inj 1 Mg Vial IM PRN PRN Hypoglycemia Protocol Glucose 15 gm 06/03/24 13:46 Glucose Oral Gel 15 Gm Of Glucse In 37.5 Gm Tube PO PRN PRN Hypoglycemia Protocol Heparin Sodium (Porcine) 6,000 units 06/03/24 12:33 06/04/24 23:06 Heparin Sodium 5,000 Units/Ml Vial IV PUSH 6,000 units PRN PRN Administration aPTT less than 55 seconds Heparin Sodium (Porcine) 3,000 units 06/03/24 12:33 06/06/24 05:43 Heparin Sodium 5,000 Units/Ml Vial IV PUSH 3,000 units PRN PRN Administration aPTT 55 - 70 seconds Hydrocortisone Sodium Succinate 50 mg 06/09/24 02:00 06/10/24 03:22 Hydrocortisone Sodium Succinate 100 Mg/2 Ml Vial IV PUSH 06/11/24 01:59 50 mg Q12H ARABELLA Administration Heparin Sodium/Dextrose 25,000 units in 250 mls @ 0 mls/hr 06/03/24 12:35 06/09/24 19:27 Heparin Sodium/D5w 100 Units/Ml IV CONT Infused .Q0M ARABELLA Titration Protocol Dextrose 1,000 mls @ 100 mls/hr 06/03/24 13:46 Dextrose 5% 1,000 Ml IVPB PRN PRN Hypoglycemia Protocol Fentanyl Citrate 2,500 mcg in 250 mls @ 20 mls/hr 06/03/24 13:50 06/10/24 06:00 Fentanyl 2,500 Mcg/Ns 250 Ml IV CONT 200 mcg/hr .[id number] ARABELLA 20 mls/hr Titration Protocol 200 MCG/HR Midazolam HCl 100 mg in 100 mls @ 5 mls/hr 06/03/24 13:50 06/10/24 08:09 Versed 100 Mg/Ns 100 Ml IV CONT 5 mg/hr .Q20H ARABELLA 5 mls/hr Administration Protocol 5 MG/HR Norepinephrine Bitartrate 8 mg in 250 mls @ 0 mls/hr 06/03/24 17:50 06/06/24 17:43 Levophed 8 Mg/D5w 250 Ml IV CONT Infused .Q0M ARABELLA Titration Protocol 0 MCG/MIN Cefepime HCl 2 gm in 50 mls @ 100 mls/hr 06/04/24 15:00 06/10/24 04:00 Maxipime 2 Gm/Ns 50 Ml IVPB Infused Q12H ARABELLA Infusion Micafungin Sodium 100 mg/ 100 mls @ 100 mls/hr 06/08/24 09:00 06/09/24 09:20 Sodium Chloride IVPB Infused DAILY ARABELLA Infusion Cisatracurium Besylate 200 mg/ 100 mls @ 0 mls/hr 06/09/24 03:00 06/09/24 18:00 Sodium Chloride IVPB 0 mcg/kg/min .Q0M ARABELLA 0 mls/hr Titration Protocol Vancomycin HCl 1,500 mg in 500 mls @ 250 mls/hr 06/10/24 00:00 06/10/24 02:00 Vancomycin 1,500 Mg/Ns 500 Ml IVPB Infused Q12H ARABELLA Infusion Insulin Aspart 3 - 6 units 06/03/24 18:00 06/10/24 08:10 Insulin Aspart (*Bkc) 100 Units/Ml SUB-Q Not Given Q6HR ARABELLA Protocol Insulin Glargine 5 units 06/09/24 09:00 06/09/24 08:28 Insulin Glargine (*Bkc) 100 Units/Ml SUB-Q 5 units DAILY ARABELLA Administration Metoprolol Tartrate 50 mg 06/09/24 09:00 06/09/24 22:37 Metoprolol Tartrate 50 Mg Tab FEED TUBE 50 mg Q12HR ARABELLA Administration Midazolam HCl 2 mg 06/03/24 13:48 06/03/24 16:40 Midazolam Hcl (*Crx) 2 Mg/2 Ml Vial IV PUSH 2 mg Q5M PRN Administration ventilator asynchrony Miscellaneous Information 0 each 06/08/24 00:01 06/10/24 00:07 Ivs In Normal Saline (If Possible) XX 07/08/24 00:00 Not Given CLARIFY ARABELLA Multi-Ingred Cream/Lotion/Oil/Oint 1 applic 06/03/24 14:00 06/09/24 22:37 Mineral Oil/White Petrolatum Ointment EACH EYE 1 applic Q12HR ARABELLA Administration Pantoprazole Sodium 40 mg 06/04/24 09:00 06/09/24 08:24 Pantoprazole Sodium Iv 40 Mg Vial IV PUSH 40 mg QAM ARABELLA Administration Polyethylene Glycol 17 gm 06/09/24 10:25 06/09/24 12:19 Polyethylene Glycol 3350 17 Gm Powd.Pack PO 17 gm QAM ARABELLA Administration Sodium Chloride 10 ml 06/03/24 22:00 06/10/24 08:11 Central Line Flush IV PUSH 10 ml Q8HR ARABELLA Administration Sodium Chloride 20 ml 06/03/24 19:36 Central Line Flush IV PUSH PRN PRN after blood draws Radiology Results: ITS Impressions Chest/Abdomen/Pelvis CT 06/03/24 17:44 IMPRESSION: Dense bilateral pulmonary infiltrates. Loculated dense effusion within the left upper lobe, similar to what one might see with an adjacent fracture. Although, significant respiratory artifact renders this evaluation limited. Perhaps once adequate resuscitation has been performed and lung findings are improving repeat imaging may be attempted with intravenous contrast, in order to evaluate for the presence or absence of acute traumatic injury. Hepatosplenomegaly. Free fluid within the deep pelvis, never a normal finding in a male patient. Abdomen Ultrasound 06/05/24 08:52 IMPRESSION: 1. Small volume of ascites. Chest X-Ray 06/10/24 06:34 Impression: Extensive patchy bilateral airspace consolidations compatible bilateral pneumonia, with relative sparing of the lung apices. Findings are similar to prior exam. Stable support tubes. Labs Labs: Laboratory Results - last 24 hr 06/09/24 06/09/24 06/09/24 11:40 17:38 22:46 WBC RBC Hgb Hct MCV MCH MCHC RDW Plt Count MPV Immature Gran % (Auto) Neut % (Auto) Lymph % (Auto) [place] % (Auto) Eos % (Auto) Baso % (Auto) Lymph # (Auto) [place] # (Auto) Eos # (Auto) Baso # (Auto) Abs Immat Gran (auto) Absolute Neuts (auto) Absolute Nucleated RBC Total Counted Neutrophils % (Manual) Band Neutrophils % Lymphocytes % (Manual) Monocytes % (Manual) Metamyelocytes % Nucleated RBC % Abs Neuts (Manual) Abs Lymphs (Manual) Abs Monocytes (Manual) Platelet Estimate Schistocytes Puncture Site ABG pH ABG pCO2 ABG pO2 ABG PO2/FiO2 Ratio ABG HCO3 ABG O2 Saturation ABG O2 Content ABG Base Excess A-a Gradient Oxyhemoglobin Carboxyhemoglobin Methemoglobin Reduced Hemoglobin Total Hemoglobin O2 Delivery Device O2 Liters/Min Minute Volume Vent Rate Vent Mode FiO2 Tidal Volume PEEP Peak Inspir Pressure Pressure Support Sodium Potassium Chloride Carbon Dioxide Anion Gap BUN Creatinine Estim Creat Clear Calc Estimated GFR Glucose POC Capillary Glucose 173 H 176 H Calcium Phosphorus Magnesium Total Bilirubin AST ALT Alkaline Phosphatase Total Protein Albumin Vancomycin Trough 11.1 06/10/24 06/10/24 06/10/24 00:02 04:54 05:24 WBC 22.5 H RBC 3.05 L Hgb 9.2 L Hct 29.0 L MCV 95.1 MCH 30.2 MCHC 31.7 L RDW 14.2 Plt Count 270 MPV 9.4 Immature Gran % (Auto) Not Reportable Neut % (Auto) Not Reportable Lymph % (Auto) Not Reportable [place] % (Auto) Not Reportable Eos % (Auto) Not Reportable Baso % (Auto) Not Reportable Lymph # (Auto) Not Reportable [place] # (Auto) Not Reportable Eos # (Auto) Not Reportable Baso # (Auto) Not Reportable Abs Immat Gran (auto) Not Reportable Absolute Neuts (auto) Not Reportable Absolute Nucleated RBC Not Reportable Total Counted 100 Neutrophils % (Manual) 81 H Band Neutrophils % 8 H Lymphocytes % (Manual) 7.0 L Monocytes % (Manual) 3 Metamyelocytes % 1 Nucleated RBC % Not Reportable Abs Neuts (Manual) 20.02 H Abs Lymphs (Manual) 1.57 Abs Monocytes (Manual) 0.67 Platelet Estimate Adequate Schistocytes None seen Puncture Site Right radial ABG pH 7.500 H ABG pCO2 40.4 ABG pO2 93.6 ABG PO2/FiO2 Ratio 2.34 ABG HCO3 30.8 H ABG O2 Saturation 97.7 ABG O2 Content 13.7 L ABG Base Excess 7.0 A-a Gradient 145.1 Oxyhemoglobin 97.1 Carboxyhemoglobin 0.3 Methemoglobin 0.1 Reduced Hemoglobin 2.5 Total Hemoglobin 9.9 L O2 Delivery Device Ventilator O2 Liters/Min Not Reportable Minute Volume Not Reportable Vent Rate 26 Vent Mode Cmv FiO2 40 Tidal Volume 450 PEEP 8 Peak Inspir Pressure Not Reportable Pressure Support Not Reportable Sodium 149 H Potassium 4.4 Chloride 112 H Carbon Dioxide 34 H Anion Gap 3 L BUN 62 H D Creatinine 1.00 Estim Creat Clear Calc 75 Estimated GFR > 60 Glucose 124 H POC Capillary Glucose 134 H Calcium 8.5 Phosphorus 2.8 Magnesium 2.3 Total Bilirubin 0.6 AST 55 ALT 35 Alkaline Phosphatase 90 Total Protein 6.0 L Albumin 2.4 L Vancomycin Trough
[2024-06-10] MEDS: ENOXAPARIN 40 MG/0.4 ML SYRINGE SUB-Q (08:23)
[2024-06-10] MEDS: polyethylene glycoL 3350 17 GM POWD.PACK PO (08:23)
[2024-06-10] MEDS: METOPROLOL TARTRATE 50 MG TAB FEED TUBE ×2 (08:24→21:37)
[2024-06-10] MEDS: AMIODARONE HCL 200 MG TABLET 400 MG PO ×2 (08:24→21:38)
[2024-06-10] MEDS: MINERAL OIL/WHITE PETROLATUM OINTMENT 1 APPLIC EACH EYE ×2 (08:24→21:42)
[2024-06-10] MEDS: PANTOPRAZOLE SODIUM IV 40 MG VIAL IV PUSH (08:24)
[2024-06-10] MEDS: dexmedeTOMIDine 400 MCG/100 ML 400 MCG/100 ML BAG IV CONT (08:54)
[2024-06-10] MEDS: INSULIN GLARGINE (*BKC) 100 UNITS/ML SUB-Q (09:03)
--- NOTE | 2024-06-10 11:02 | WPDINTPN ---
Progress Note: A&P Assessment and Plan (1) Spontaneous pneumothorax: Code(s): J93.83 - Other pneumothorax Status: Acute Assessment and Plan: 06/08 late evening/night, patient was tachypneic, hypoxic, a tachycardic. Start chest x-ray showed large left-sided pneumothorax status post small more chest tube placed by ER physician -repeat chest x-ray with almost resolution of the left-sided pneumothorax (2) Acute respiratory failure: Code(s): J96.00 - Acute respiratory failure, unspecified whether with hypoxia or hypercapnia Status: Acute Assessment and Plan: Acute respiratory failure secondary to pneumonia -06/03: intubated in the ER -patient remains on CMV mode of ventilation, peep of 12 and 50% FiO2 this morning -06/03: Patient was proned for approximately 20 hours - chest x-ray this mornin. Slight improvement in bilateral multifocal pneumonia mid and lower lung zones. 2. Endotracheal, nasogastric and left chest tubes in expected position -influenza A positive -negative for COVID, RSV -urine Legionella negative -urine pneumococcal antigen positive -mycoplasma pneumonia none detected -continue bronchodilators -sedated with fentanyl, Versed. Off Nimbex since 06/06. Weaning sedation, patient opens his eyes and follows commands. Have asked the bedside RN start Precedex infusion and discontinue sedation to evaluate for extubation 06/03/2024: CT chest, abdomen, pelvis IMPRESSION: Dense bilateral pulmonary infiltrates. Loculated dense effusion within the left upper lobe, similar to what one might see with an adjacent fracture. Although, significant respiratory artifact renders this evaluation limited. Perhaps once adequate resuscitation has been performed and lung findings are improving repeat imaging may be attempted with intravenous contrast, in order to evaluate for the presence or absence of acute traumatic injury. Hepatosplenomegaly. Free fluid within the deep pelvis, never a normal finding in a male patient. (3) Septic shock: Code(s): A41.9 - Sepsis, unspecified organism; R65.21 - Severe sepsis with septic shock Status: Acute Assessment and Plan: Patient with hypotension, refractory to IV fluids, -etiology likely related to pneumonia, UA was unremarkable -patient received adequate amount of IV fluids -06/03: blood cultures growing -Streptococcus pneumonia 2/2 bottles -lactic acid has normalized -continue cefepime and doxycycline (06/03) -06/06: Will discontinue vancomycin since as strep pneumo was pansensitive -currently OFF Levophed and vasopressin -Continue to maintain MAP > 65 mm Hg or SBP > 100 mm Hg -weaning stress dose steroids (06/03) -06/06: Repeat blood cultures growing yeast and Gram-positive cocci in clusters 1/2 bottles, could be contamination -06/08: Started patient on micafungin and vancomycin, repeat blood cultures with no growth so far. 06/10: Given fevers with a T-max of 101.5? and increasing wbc count, continue micafungin and vancomycin (4) Pneumonia: Code(s): J18.9 - Pneumonia, unspecified organism Status: Acute Assessment and Plan: See above (5) Hyponatremia: Code(s): E87.1 - Hypo-osmolality and hyponatremia Status: Acute Assessment and Plan: RESOLVED Hyponatremia with sodium levels of 117 on admission Etiology is not clear at this point in this could be secondary to excessive water intake. This could also be secondary to SIADH, congestive heart failure, SSRI, increased water intake -patient received adequate IV fluids -could will discontinue maintenance IV fluids, discussed with Nephrology -nephrology following the patient and appreciate the evaluation and recommendations -sodium levels have normalized continue to monitor Patient currently hypernatremic with sodium of 149, increased free water flushes to 200 mL (6) SABA (acute kidney injury): Code(s): N17.9 - Acute kidney failure, unspecified Status: Acute Assessment and Plan: Baseline creatinine unknown Presented with creatinine of 1.5 for which could be secondary to sepsis and hypovolemia Status post IV fluids Appreciate nephrology following the patient 06/03: CTA chest abdomen pelvis did not show any hydronephrosis renal calculi Jimenez in place, urine output has been low Urine lytes reflective of prerenal picture, patient has had adequate IV fluids, now in ARDS, -continue to monitor urine output, electrolytes and renal function -06/07: Significant urine output yesterday and overnight -continues to have good urine output, possible polyuric phase of ATN -nephrology following Creatinine has normalized (7) Atrial fibrillation with RVR: Code(s): I48.91 - Unspecified atrial fibrillation Status: Acute Assessment and Plan: Status post DC cardioversion in ER. Currently on heparin infusion. -appreciate cardiology evaluation and recommendations -patient received amiodarone bolus x2, now on amiodarone at 0.5 mg/min -off pressors -switched amiodarone infusion to p.o. amiodarone per Cardiology recommendations - 06/09 HOLD HEPARIN infusion due to PTX, started on metoprolol -06/10: Patient in sinus rhythm with PVCs, bigeminy, will start therapeutic Lovenox 06/05/2024: Echocardiogram Summary 1. Left ventricular chamber dimension is normal. 2. Left ventricular systolic function is moderately reduced, estimated at 30-35%. 3. There is mildly increased left ventricular wall thickness. 4. The left ventricular diastolic function is grade I diastolic dysfunction. 5. Right ventricular systolic function is normal. 6. There is mild mitral valve regurgitation. 7. There is mild tricuspid valve regurgitation. 8. Estimated pulmonary arterial systolic pressure is 34 mmHg. (8) Elevated brain natriuretic peptide (BNP) level: Code(s): R79.89 - Other specified abnormal findings of blood chemistry Status: Acute Assessment and Plan: Patient has elevated BNP of 4190, although no evidence of volume overload from exam CT chest showed multifocal pneumonia Echocardiogram as above Cautious IV fluid (9) Hypertension: Code(s): I10 - Essential (primary) hypertension Status: Acute Assessment and Plan: 06/09: Started on home metoprolol -p.r.n. hydralazine (10) Influenza A: Code(s): J10.1 - Influenza due to other identified influenza virus with other respiratory manifestations Status: Acute Assessment and Plan: Patient was tested positive for influenza A, completed 10 days of Tamiflu (11) Schizophrenia: Code(s): F20.9 - Schizophrenia, unspecified Status: Acute Assessment and Plan: History of schizophrenia and other behavior issues Unknown if he takes any medications Plan DVT prophylaxis -will start therapeutic Lovenox Stress ulcer prophylaxis -Protonix Nutrition: tolerating tube feeds Code Status -DNR Total Critical Care Time - 32 minutes Discussed with patient's father and brother updated with his condition and plan of care. I answered all questions Due to a high probability of clinically significant, life threatening deterioration, the patient required my highest level of preparedness to intervene emergently and I personally spent this critical care time directly and personally managing the patient. This critical care time included obtaining a history; examining the patient; pulse oximetry; ordering and review of studies; arranging urgent treatment with development of a management plan; evaluation of patient's response to treatment; frequent reassessment; and discussions with other providers. It was exclusive of separately billable procedures and treating other patients and teaching time. Please see Assessment and Plan section and the rest of the note for further information on patient assessment and treatment This dictation may have been done utilizing a voice recognition system. Attempts have been made to correct errors. However, there may be uncorrected grammatical, spelling, and recognitions errors present. Subjective Date/time seen: 06/10/24 11:02 Interval history: Reason for consult: Acute respiratory failure, pneumonia, bacteremia, acute kidney injury, hyponatremia, AFib RVR status post DC cardioversion 06/03: Intubated 06/08: Spontaneous Pneumothorax status post small bore chest tube by ER physician 06/10/2024: Patient seen and examined the ICU, remains intubated on CMV mode of ventilation, peep of 8, 40% FiO2. Sedated with fentanyl and Versed infusion, patient opens his eyes, follows simple commands. Chest tube in place, no air leak noted. Good urine output, creatinine but has normalized. Tolerating tube feeds. Patient is febrile with a T-max of 101.5?. Review of Systems Review of Systems: ROS unobtainable: Yes unobtainable due to medical condition and unobtainable due to mental status Exam Narrative: General: Intubated, sedated, in no acute distress HEENT: Pupils equal and reactive, sclera is clear Lungs/Chest: Coarse breath sounds bilaterally , decreased breath sounds at bases, otherwise adequate air entry, ETT in place, chest tube in place with no air leak Cardiac: Sinus rhythm, rate controlled with PVCs Circulation: Pedal pulses are intact and symmetrical. Abdomen: Soft, nontender, nondistended, hypoactive bowel sounds Extremities: 1+ edema bilateral lower extremities : Jimenez in place Neurologic: Intubated, sedated. Opens his eyes, follows simple commands in all extremities Skin: No skin lesions or rash noted Objective Data Vital Signs Vital Signs: Vital Signs - 24 hr 06/09/24 12:00 06/09/24 12:06/09/24 12:00 Temperature Pulse Rate 86 95 Respiratory Rate 28 H Blood Pressure Pulse Oximetry 98 Oxygen Delivery Mechanical Ventilation Fraction of Inspired Oxygen 50 50 06/09/24 12:00 06/09/24 12:06/09/24 12:00 Temperature 99.5 F Pulse Rate 95 91 93 Respiratory Rate 28 H 26 H 26 H Blood Pressure 152/81 H Pulse Oximetry 99 Oxygen Delivery Fraction of Inspired Oxygen 06/09/24 12:17 06/09/24 12:17 06/09/24 12:18 Temperature Pulse Rate 92 92 93 Respiratory Rate 16 16 16 Blood Pressure Pulse Oximetry Oxygen Delivery Fraction of Inspired Oxygen 06/09/24 12:18 06/09/24 14:00 06/09/24 14:00 Temperature 99.8 F H Pulse Rate 93 77 89 Respiratory Rate 16 25 H 28 H Blood Pressure 125/68 Pulse Oximetry 98 Oxygen Delivery Fraction of Inspired Oxygen 06/09/24 14:00 06/09/24 14:00 06/09/24 14:01 Temperature Pulse Rate 92 100 77 Respiratory Rate 26 H 28 H Blood Pressure 0/0 L Pulse Oximetry 99 Oxygen Delivery Mechanical Ventilation Fraction of Inspired Oxygen 50 06/09/24 14:01 06/09/24 14:11 06/09/24 16:00 Temperature Pulse Rate 77 78 Respiratory Rate 30 H 27 H Blood Pressure Pulse Oximetry Oxygen Delivery Fraction of Inspired Oxygen 40 06/09/24 16:00 06/09/24 16:00 06/09/24 16:00 Temperature 100 F H Pulse Rate 87 87 82 Respiratory Rate 15 28 H 24 H Blood Pressure 132/75 Pulse Oximetry 98 98 Oxygen Delivery Mechanical Ventilation Fraction of Inspired Oxygen 50 06/09/24 16:00 06/09/24 16:00 06/09/24 16:54 Temperature Pulse Rate 89 100 99 Respiratory Rate 26 H 28 H Blood Pressure 0/0 L Pulse Oximetry 98 Oxygen Delivery Mechanical Ventilation Fraction of Inspired Oxygen 40 06/09/24 18:00 06/09/24 18:00 06/09/24 18:00 Temperature Pulse Rate 82 84 79 Respiratory Rate 26 H 22 H Blood Pressure 133/79 Pulse Oximetry 98 Oxygen Delivery Fraction of Inspired Oxygen 06/09/24 18:00 06/09/24 18:00 06/09/24 20:00 Temperature Pulse Rate 91 100 87 Respiratory Rate 28 H 28 H 27 H Blood Pressure 0/0 L Pulse Oximetry 96 Oxygen Delivery Mechanical Ventilation Fraction of Inspired Oxygen 40 06/09/24 20:00 06/09/24 20:00 06/09/24 20:00 Temperature 100.2 F H Pulse Rate 100 100 Respiratory Rate 28 H Blood Pressure 127/69 Pulse Oximetry 98 Oxygen Delivery Fraction of Inspired Oxygen 40 06/09/24 20:00 06/09/24 20:00 06/09/24 20:47 Temperature Pulse Rate 105 H 105 H 78 Respiratory Rate 30 H 30 H 26 H Blood Pressure Pulse Oximetry Oxygen Delivery Fraction of Inspired Oxygen 06/09/24 20:50 06/09/24 20:53 06/09/24 22:00 Temperature Pulse Rate 91 87 99 Respiratory Rate 27 H Blood Pressure Pulse Oximetry 99 Oxygen Delivery Mechanical Ventilation Fraction of Inspired Oxygen 40 06/09/24 22:00 06/09/24 22:00 06/09/24 22:00 Temperature 100.2 F H Pulse Rate 99 99 99 Respiratory Rate 28 H 30 H 30 H Blood Pressure 137/84 Pulse Oximetry 96 Oxygen Delivery Fraction of Inspired Oxygen 06/09/24 22:36 06/09/24 22:37 06/09/24 23:14 Temperature Pulse Rate 96 92 92 Respiratory Rate 28 H Blood Pressure Pulse Oximetry 96 Oxygen Delivery Mechanical Ventilation Fraction of Inspired Oxygen 40 06/09/24 23:15 06/09/24 23:16 06/09/24 23:32 Temperature Pulse Rate 92 91 Respiratory Rate Blood Pressure Pulse Oximetry 94 Oxygen Delivery Mechanical Ventilation Fraction of Inspired Oxygen 40 40 06/10/24 00:00 06/10/24 00:00 06/10/24 00:09 Temperature 100.3 F H Pulse Rate 89 102 H 89 Respiratory Rate 30 H 30 H 30 H Blood Pressure 168/80 H Pulse Oximetry 94 Oxygen Delivery Fraction of Inspired Oxygen 06/10/24 02:00 06/10/24 02:00 06/10/24 02:00 Temperature 100.5 F H Pulse Rate 97 97 97 Respiratory Rate 30 H 30 H Blood Pressure 149/85 H Pulse Oximetry 97 Oxygen Delivery Fraction of Inspired Oxygen 06/10/24 02:00 06/10/24 02:34 06/10/24 02:37 Temperature Pulse Rate 97 94 103 H Respiratory Rate 30 H 26 H Blood Pressure Pulse Oximetry 94 Oxygen Delivery Mechanical Ventilation Fraction of Inspired Oxygen 40 06/10/24 02:44 06/10/24 03:24 06/10/24 03:24 Temperature Pulse Rate 98 96 96 Respiratory Rate 28 H 28 H 28 H Blood Pressure Pulse Oximetry Oxygen Delivery Fraction of Inspired Oxygen 06/10/24 04:00 06/10/24 04:00 06/10/24 04:00 Temperature Pulse Rate 91 97 Respiratory Rate 28 H Blood Pressure Pulse Oximetry 95 Oxygen Delivery Mechanical Ventilation Fraction of Inspired Oxygen 40 40 06/10/24 04:00 06/10/24 04:00 06/10/24 04:00 Temperature 101.1 F H Pulse Rate 95 95 95 Respiratory Rate 28 H 28 H 28 H Blood Pressure 142/81 H Pulse Oximetry 95 Oxygen Delivery Fraction of Inspired Oxygen 06/10/24 04:56 06/10/24 06:00 06/10/24 06:00 Temperature 101.1 F H Pulse Rate 92 86 86 Respiratory Rate 28 H Blood Pressure 149/86 H Pulse Oximetry 98 99 Oxygen Delivery Mechanical Ventilation Fraction of Inspired Oxygen 40 06/10/24 06:00 06/10/24 06:00 06/10/24 07:04 Temperature 101.5 F H Pulse Rate 86 86 Respiratory Rate 28 H 28 H Blood Pressure Pulse Oximetry Oxygen Delivery Fraction of Inspired Oxygen 06/10/24 07:51 06/10/24 07:51 06/10/24 08:00 Temperature Pulse Rate 113 H 113 H 91 Respiratory Rate 26 H 18 Blood Pressure Pulse Oximetry 99 97 Oxygen Delivery Mechanical Ventilation Mechanical Ventilation Fraction of Inspired Oxygen 40 40 06/10/24 08:00 06/10/24 08:00 06/10/24 08:00 Temperature Pulse Rate 91 99 Respiratory Rate 26 H Blood Pressure 145/64 H Pulse Oximetry Oxygen Delivery Fraction of Inspired Oxygen 40 06/10/24 08:09 06/10/24 08:09 06/10/24 08:13 Temperature Pulse Rate 101 H 93 101 H Respiratory Rate 26 H 26 H 26 H Blood Pressure Pulse Oximetry Oxygen Delivery Fraction of Inspired Oxygen 06/10/24 08:24 06/10/24 08:24 06/10/24 08:54 Temperature Pulse Rate 109 H 100 107 H Respiratory Rate 18 Blood Pressure Pulse Oximetry Oxygen Delivery Fraction of Inspired Oxygen 06/10/24 08:57 06/10/24 10:00 06/10/24 10:00 Temperature 101.5 F H Pulse Rate 99 96 Respiratory Rate 26 H Blood Pressure 146/75 H Pulse Oximetry 99 Oxygen Delivery Fraction of Inspired Oxygen 06/10/24 10:38 Temperature Pulse Rate 91 Respiratory Rate Blood Pressure Pulse Oximetry 97 Oxygen Delivery Mechanical Ventilation Fraction of Inspired Oxygen 40 Intake/Output Intake/Output: Intake & Output 02/27/25 02/28/25 03/01/25 03/02/25 23:59 23:59 23:59 23:59 Intake Total 2655.5 3286.7 2847.8 1416.1 Output Total 5025 2600 2725 1550 Balance -2369.5 686.7 122.8 -133.9 Meds/Results Medications: Active Medications Generic Name Dose Route Start Last Admin Trade Name Freq PRN Reason Stop Dose Admin Acetaminophen 650 mg 06/03/24 13:56 06/10/24 07:04 Acetaminophen Elixir 325 Mg/10.15 Ml Udc FEED TUBE 650 mg Q4H PRN Administration Fever Albuterol/Ipratropium 3 ml 06/03/24 13:50 Ipratropium 0.5 Mg/Albuterol Sulfate 2.5 Mg Ampul.Neb 3 Ml INHALATION Q6HRT PRN Wheezng Albuterol/Ipratropium 3 ml 06/03/24 20:00 06/10/24 07:51 Ipratropium 0.5 Mg/Albuterol Sulfate 2.5 Mg Ampul.Neb 3 Ml INHALATION 3 ml Q6HRT ARABELLA Administration Amiodarone HCl 400 mg 06/06/24 09:40 06/10/24 08:24 Amiodarone Hcl 200 Mg Tablet PO 06/13/24 09:39 400 mg Q12HR ARABELLA Administration Amiodarone HCl 200 mg 06/14/24 08:00 Amiodarone Hcl 200 Mg Tablet PO DAILY@0800 ARABELLA Dextrose 12.5 gm 06/03/24 13:46 Dextrose 50% 25 Gm/50 Ml Syringe IV PUSH PRN PRN Hypoglycemia Protocol Enoxaparin Sodium 40 mg 06/09/24 11:30 06/10/24 08:23 Enoxaparin 40 Mg/0.4 Ml Syringe SUB-Q 40 mg DAILY ARABELLA Administration Glucagon 1 mg 06/03/24 13:46 Glucagon For Inj 1 Mg Vial IM PRN PRN Hypoglycemia Protocol Glucose 15 gm 06/03/24 13:46 Glucose Oral Gel 15 Gm Of Glucse In 37.5 Gm Tube PO PRN PRN Hypoglycemia Protocol Heparin Sodium (Porcine) 6,000 units 06/03/24 12:33 06/04/24 23:06 Heparin Sodium 5,000 Units/Ml Vial IV PUSH 6,000 units PRN PRN Administration aPTT less than 55 seconds Heparin Sodium (Porcine) 3,000 units 06/03/24 12:33 06/06/24 05:43 Heparin Sodium 5,000 Units/Ml Vial IV PUSH 3,000 units PRN PRN Administration aPTT 55 - 70 seconds Hydrocortisone Sodium Succinate 50 mg 06/09/24 02:00 06/10/24 03:22 Hydrocortisone Sodium Succinate 100 Mg/2 Ml Vial IV PUSH 06/11/24 01:59 50 mg Q12H ARABELLA Administration Heparin Sodium/Dextrose 25,000 units in 250 mls @ 0 mls/hr 06/03/24 12:35 06/09/24 19:27 Heparin Sodium/D5w 100 Units/Ml IV CONT Infused .Q0M ARABELLA Titration Protocol Dextrose 1,000 mls @ 100 mls/hr 06/03/24 13:46 Dextrose 5% 1,000 Ml IVPB PRN PRN Hypoglycemia Protocol Fentanyl Citrate 2,500 mcg in 250 mls @ 20 mls/hr 06/03/24 13:50 06/10/24 06:00 Fentanyl 2,500 Mcg/Ns 250 Ml IV CONT 200 mcg/hr .[id number] ARABELLA 20 mls/hr Titration Protocol 200 MCG/HR Midazolam HCl 100 mg in 100 mls @ 5 mls/hr 06/03/24 13:50 06/10/24 08:09 Versed 100 Mg/Ns 100 Ml IV CONT 5 mg/hr .Q20H ARABELLA 5 mls/hr Administration Protocol 5 MG/HR Norepinephrine Bitartrate 8 mg in 250 mls @ 0 mls/hr 06/03/24 17:50 06/06/24 17:43 Levophed 8 Mg/D5w 250 Ml IV CONT Infused .Q0M ARABELLA Titration Protocol 0 MCG/MIN Cefepime HCl 2 gm in 50 mls @ 100 mls/hr 06/04/24 15:00 06/10/24 04:00 Maxipime 2 Gm/Ns 50 Ml IVPB Infused Q12H ARABELLA Infusion Micafungin Sodium 100 mg/ 100 mls @ 100 mls/hr 06/08/24 09:00 06/09/24 09:20 Sodium Chloride IVPB Infused DAILY ARABELLA Infusion Cisatracurium Besylate 200 mg/ 100 mls @ 0 mls/hr 06/09/24 03:00 06/09/24 18:00 Sodium Chloride IVPB 0 mcg/kg/min .Q0M ARABELLA 0 mls/hr Titration Protocol Vancomycin HCl 1,500 mg in 500 mls @ 250 mls/hr 06/10/24 00:00 06/10/24 02:00 Vancomycin 1,500 Mg/Ns 500 Ml IVPB Infused Q12H ARABELLA Infusion Dexmedetomidine HCl 400 mcg in 100 mls @ 3.745 mls/hr 06/10/24 08:40 06/10/24 08:54 Precedex 400 Mcg/100 Ml IV CONT 0.2 mcg/kg/hr .[id number] ARABELLA 3.75 mls/hr Administration Protocol 0.2 MCG/KG/HR Insulin Aspart 3 - 6 units 06/03/24 18:00 06/10/24 08:10 Insulin Aspart (*Bkc) 100 Units/Ml SUB-Q Not Given Q6HR ARABELLA Protocol Insulin Glargine 5 units 06/09/24 09:00 06/10/24 09:03 Insulin Glargine (*Bkc) 100 Units/Ml SUB-Q 5 units DAILY ARABELLA Administration Metoprolol Tartrate 50 mg 06/09/24 09:00 06/10/24 08:24 Metoprolol Tartrate 50 Mg Tab FEED TUBE 50 mg Q12HR ARABELLA Administration Midazolam HCl 2 mg 06/03/24 13:48 06/03/24 16:40 Midazolam Hcl (*Crx) 2 Mg/2 Ml Vial IV PUSH 2 mg Q5M PRN Administration ventilator asynchrony Miscellaneous Information 0 each 06/08/24 00:01 06/10/24 00:07 Ivs In Normal Saline (If Possible) XX 07/08/24 00:00 Not Given CLARIFY ARABELLA Multi-Ingred Cream/Lotion/Oil/Oint 1 applic 06/03/24 14:00 06/10/24 08:24 Mineral Oil/White Petrolatum Ointment EACH EYE 1 applic Q12HR ARABELLA Administration Pantoprazole Sodium 40 mg 06/04/24 09:00 06/10/24 08:24 Pantoprazole Sodium Iv 40 Mg Vial IV PUSH 40 mg QAM ARABELLA Administration Polyethylene Glycol 17 gm 06/09/24 10:25 06/10/24 08:23 Polyethylene Glycol 3350 17 Gm Powd.Pack PO 17 gm QAM ARABELLA Administration Sodium Chloride 10 ml 06/03/24 22:00 06/10/24 08:11 Central Line Flush IV PUSH 10 ml Q8HR ARABELLA Administration Sodium Chloride 20 ml 06/03/24 19:36 Central Line Flush IV PUSH PRN PRN after blood draws Radiology Results: ITS Impressions Chest/Abdomen/Pelvis CT 06/03/24 17:44 IMPRESSION: Dense bilateral pulmonary infiltrates. Loculated dense effusion within the left upper lobe, similar to what one might see with an adjacent fracture. Although, significant respiratory artifact renders this evaluation limited. Perhaps once adequate resuscitation has been performed and lung findings are improving repeat imaging may be attempted with intravenous contrast, in order to evaluate for the presence or absence of acute traumatic injury. Hepatosplenomegaly. Free fluid within the deep pelvis, never a normal finding in a male patient. Abdomen Ultrasound 06/05/24 08:52 IMPRESSION: 1. Small volume of ascites. Chest X-Ray 06/10/24 06:34 Impression: Extensive patchy bilateral airspace consolidations compatible bilateral pneumonia, with relative sparing of the lung apices. Findings are similar to prior exam. Stable support tubes. Labs Labs: Laboratory Results - last 24 hr 06/09/24 06/09/24 06/09/24 11:40 17:38 22:46 WBC RBC Hgb Hct MCV MCH MCHC RDW Plt Count MPV Immature Gran % (Auto) Neut % (Auto) Lymph % (Auto) Sawyer % (Auto) Eos % (Auto) Baso % (Auto) Lymph # (Auto) Sawyer # (Auto) Eos # (Auto) Baso # (Auto) Abs Immat Gran (auto) Absolute Neuts (auto) Absolute Nucleated RBC Total Counted Neutrophils % (Manual) Band Neutrophils % Lymphocytes % (Manual) Monocytes % (Manual) Metamyelocytes % Nucleated RBC % Abs Neuts (Manual) Abs Lymphs (Manual) Abs Monocytes (Manual) Platelet Estimate Schistocytes Puncture Site ABG pH ABG pCO2 ABG pO2 ABG PO2/FiO2 Ratio ABG HCO3 ABG O2 Saturation ABG O2 Content ABG Base Excess A-a Gradient Oxyhemoglobin Carboxyhemoglobin Methemoglobin Reduced Hemoglobin Total Hemoglobin O2 Delivery Device O2 Liters/Min Minute Volume Vent Rate Vent Mode FiO2 Tidal Volume PEEP Peak Inspir Pressure Pressure Support Sodium Potassium Chloride Carbon Dioxide Anion Gap BUN Creatinine Estim Creat Clear Calc Estimated GFR Glucose POC Capillary Glucose 173 H 176 H Calcium Phosphorus Magnesium Total Bilirubin AST ALT Alkaline Phosphatase Total Protein Albumin Vancomycin Trough 11.1 06/10/24 06/10/24 06/10/24 00:02 04:54 05:24 WBC 22.5 H RBC 3.05 L Hgb 9.2 L Hct 29.0 L MCV 95.1 MCH 30.2 MCHC 31.7 L RDW 14.2 Plt Count 270 MPV 9.4 Immature Gran % (Auto) Not Reportable Neut % (Auto) Not Reportable Lymph % (Auto) Not Reportable Sawyer % (Auto) Not Reportable Eos % (Auto) Not Reportable Baso % (Auto) Not Reportable Lymph # (Auto) Not Reportable Sawyer # (Auto) Not Reportable Eos # (Auto) Not Reportable Baso # (Auto) Not Reportable Abs Immat Gran (auto) Not Reportable Absolute Neuts (auto) Not Reportable Absolute Nucleated RBC Not Reportable Total Counted 100 Neutrophils % (Manual) 81 H Band Neutrophils % 8 H Lymphocytes % (Manual) 7.0 L Monocytes % (Manual) 3 Metamyelocytes % 1 Nucleated RBC % Not Reportable Abs Neuts (Manual) 20.02 H Abs Lymphs (Manual) 1.57 Abs Monocytes (Manual) 0.67 Platelet Estimate Adequate Schistocytes None seen Puncture Site Right radial ABG pH 7.500 H ABG pCO2 40.4 ABG pO2 93.6 ABG PO2/FiO2 Ratio 2.34 ABG HCO3 30.8 H ABG O2 Saturation 97.7 ABG O2 Content 13.7 L ABG Base Excess 7.0 A-a Gradient 145.1 Oxyhemoglobin 97.1 Carboxyhemoglobin 0.3 Methemoglobin 0.1 Reduced Hemoglobin 2.5 Total Hemoglobin 9.9 L O2 Delivery Device Ventilator O2 Liters/Min Not Reportable Minute Volume Not Reportable Vent Rate 26 Vent Mode Cmv FiO2 40 Tidal Volume 450 PEEP 8 Peak Inspir Pressure Not Reportable Pressure Support Not Reportable Sodium 149 H Potassium 4.4 Chloride 112 H Carbon Dioxide 34 H Anion Gap 3 L BUN 62 H D Creatinine 1.00 Estim Creat Clear Calc 75 Estimated GFR > 60 Glucose 124 H POC Capillary Glucose 134 H Calcium 8.5 Phosphorus 2.8 Magnesium 2.3 Total Bilirubin 0.6 AST 55 ALT 35 Alkaline Phosphatase 90 Total Protein 6.0 L Albumin 2.4 L Vancomycin Trough
[2024-06-10] MEDS: MICAFUNGIN SODIUM 100 MG in SODIUM CHLORIDE 0.9% IV 100 ML IVPB (11:32)
[2024-06-10] MEDS: ENOXAPARIN 60 MG/0.6 ML SYRINGE 35 MG SUB-Q (11:33)
[2024-06-10 12:02] LABS: Glucose Point of Care 120 mg/dl (65-105)
--- NOTE | 2024-06-10 17:22 | PCRCNOTE ---
RT called back into patient's room due to patient's respirations being 30-40 on the ventilator when the rate is set @ 22. RT was in here shortly before and patient seemed to be fine @ that time. Patient's O2 sats have also dropped a little bit. RN to call Dr. Ross @ this time
[2024-06-10] MEDS: PROPOFOL IV EMULSION 100 ML 2.25 MG IV CONT (17:41)
[2024-06-10 17:46] LABS: Glucose Point of Care 145 mg/dl (65-105)
[2024-06-10 19:07] LABS: Triglycerides 111 mg/dL (<150)
--- NOTE | 2024-06-10 21:52 | PC.NURSE ---
Sedation increased due to tachypnea, pt trying to sit up, grabbing at lines, and pulling at restraints.
[2024-06-10] MEDS: ENOXAPARIN 80 MG/0.8 ML SYRINGE 75 MG SUB-Q (21:58)
[2024-06-10] MEDS: PROPOFOL IV EMULSION 100 ML 20.22 MG IV CONT (22:54)
[2024-06-11] VITALS (62 sets, daily range): BP systolic 101–134; BP diastolic 57–79; PULSE 78–110; RESP 14–224; TEMP 37.8–39.2; O2SAT 90–95
[2024-06-11] MEDS: VANCOMYCIN 1,500 MG/NS 500 ML 1,500 MG/500 ML BAG 250 MG IVPB
[2024-06-11 00:23] LABS: Glucose Point of Care 128 mg/dl (65-105)
[2024-06-11] MEDS: FENTANYL 2,500MCG/NS250ML(*CRX 2,500 MCG/250 ML BAG 15 MCG IV CONT (01:53)
[2024-06-11] MEDS: IPRATROPIUM 0.5 MG/ALBUTEROL SULFATE 2.5 MG AMPUL.NEB 3 ML INHALATION ×3 (01:54→20:20)
[2024-06-11] MEDS: CEFEPIME 2 GM/NS 50 ML 2 GM/50 ML BAG IVPB ×2 (02:07→16:35)
[2024-06-11] MEDS: PROPOFOL IV EMULSION 100 ML 20.22 MG IV CONT (02:40)
[2024-06-11] MEDS: CENTRAL LINE FLUSH 10 ML IV PUSH ×3 (04:52→21:21)
[2024-06-11] MEDS: CENTRAL LINE FLUSH 20 ML IV PUSH (04:53)
[2024-06-11 05:01] LABS: Hematocrit 29.1 % (42.0-52.0); Hemoglobin 9.3 g/dL (14.0-18.0); Mean Corpuscular Hemoglobin 30.9 pg (26-34); Mean Corpuscular Volume 96.7 fl (80-100); Mean Platelet Volume 9.4 fl (7.4-10.4); Platelet Count Result 332 k/mm3 (150-375); Red Blood Count 3.01 M/mm3 (4.6-6.20); Red Cell Distribution Width 14.4 % (11.5-14.5); White Blood Count 27.1 K/mm3 (4.5-10.0)
[2024-06-11 05:09] LABS: Alveolar/Arterial O2 Gradient 257.8 mmHg; Base Excess ABG 4.8 mEq/l (+/-2.0); Carboxyhemoglobin 0.5 % THb (0-2.0); Fractional Inspired Oxygen 50 %; HCO3 ABG 28.4 mEq/l (22.0-26.0); Methemoglobin ABG 0.2 %THb (0-1.5); Oxygen Content ABG 16.1 %vol (16.0-22.0); Oxygen Saturation ABG 91.3 % (95.0-100.0); PCO2 ABG 38.2 mmHg (35.0-45.0); PO2 ABG 55.7 mmHg (80.0-100.0); PO2 FiO2 Ratio Arterial Blood 1.11 %; Reduced Hemoglobin 9.3 %THb (0-5.0); Total Hemoglobin 12.7 g/dL (12.0-18.0); pH ABG 7.489 (7.350-7.450)
[2024-06-11 05:10] LABS: Device VENTILATOR; Modified Allen's Test Pass; Site Drawn RIGHT RADIAL
[2024-06-11 05:11] LABS: Arterial Blood Gas PEEP 5 cmH2O; Arterial Blood Gas Tidal Volume 450 ml; Arterial Blood Gas Vent Mode CMV; Arterial Blood Gas Ventilator rate 22 /MIN
[2024-06-11 05:16] LABS: Alanine Aminotransferase 30 U/L (6-50); Albumin Level 2.2 g/dL (3.5-5.1); Alkaline Phosphatase 85 U/L (38-126); Anion Gap 3 mmol/L (4-12); Aspartate Amino Transferase 52 U/L (17-59); Bilirubin,Total 0.5 mg/dL (0.2-1.3); Blood Urea Nitrogen 47 mg/dL (9-20); Calcium 8.1 mg/dL (8.4-10.2); Carbon Dioxide 35 mmol/L (22-30); Chloride 115 mmol/L (98-107); Estimated CRCL calculation 78 ml/min; Estimated Glomerular Filt Rate > 60; Glucose 141 mg/dL (65-110); Magnesium 1.9 mg/dL (1.6-2.3); Phosphorus 3.2 mg/dL (2.5-4.5); Potassium 3.9 mmol/L (3.4-5.0); Sodium 153 mmol/L (137-145)
[2024-06-11 05:42] LABS: Anisocytosis 1+; Band Neutrophils Percent 4 % (0-6); Hypochromasia 1+; Lymphocytes Absolute Manual 2.71 K/mm3 (1.1-4.5); Monocytes Absolute Manual 0.54 K/mm3 (0.1-0.90); Monocytes Percent Manual 2 % (3-9); Neutrophils Absolute Manual 23.84 K/mm3 (1.3-6.7); Neutrophils Percent Manual 84 % (46-73); Schistocytes None Seen; Total Cells Counted 100
[2024-06-11 05:43] LABS: Platelet Estimate Adequate (Adequate); Target Cells 1+
[2024-06-11] MEDS: ACETAMINOPHEN ELIXIR 325 MG/10.15 ML UDC 650 MG FEED TUBE ×2 (06:46→17:45)
[2024-06-11] MEDS: PROPOFOL IV EMULSION 100 ML 22.47 MG IV CONT ×2 (07:21→16:42)
[2024-06-11] MEDS: AMIODARONE HCL 200 MG TABLET 400 MG PO ×2 (08:07→21:20)
[2024-06-11] MEDS: METOPROLOL TARTRATE 50 MG TAB FEED TUBE ×2 (08:07→21:20)
[2024-06-11] MEDS: PANTOPRAZOLE SODIUM IV 40 MG VIAL IV PUSH (08:07)
[2024-06-11] MEDS: polyethylene glycoL 3350 17 GM POWD.PACK PO (08:08)
[2024-06-11] MEDS: ENOXAPARIN 80 MG/0.8 ML SYRINGE 75 MG SUB-Q (08:08)
[2024-06-11] MEDS: MINERAL OIL/WHITE PETROLATUM OINTMENT 1 APPLIC EACH EYE ×3 (08:08→21:20)
[2024-06-11] MEDS: INSULIN GLARGINE (*BKC) 100 UNITS/ML SUB-Q (08:08)
--- NOTE | 2024-06-11 08:31 | P.PNIM_ITS ---
Progress Note: A&P Assessment and Plan (1) Septic shock: Code(s): A41.9 - Sepsis, unspecified organism; R65.21 - Severe sepsis with septic shock Status: Acute Assessment and Plan: Patient was hypotensive refractory to IV fluids so pressors started. Etiology likely related to sepsis from pneumococcal pneumonia and bacteremia Patient received adequate amount of IV fluids. Vanco, Cefepime and Doxy started 06/03 BCx 06/03: Streptococcus pneumonia 05/13 bottles Lactic acid 2.6 but now has normalized Currently off Levophed (06/05) and vasopressin (06/06) Completed Doxycycline 06/08 Repeat BCx 06/06: growing Shakira albicans and Staph epidermidis; 2nd set NGTD Echo 06/05 with EF 30-35%, grade I diastolic dysfxn, mild valve disease and PASP 34. Repeat BCx 06/08 NGTD WBC higher today. Having recurrent fevers. CT Ch/A/P showing bilateral PNA, retroperitoneal fat stranding and thickened rectal wall. Continue vancomycin and cefepime (06/03); Micafungin added (06/08). Consider stopping cefepime and adding ESBL coverage with meropenem. Continue stress dose steroids (06/03) (2) Acute respiratory failure: Code(s): J96.00 - Acute respiratory failure, unspecified whether with hypoxia or hypercapnia Status: Acute Assessment and Plan: Acute respiratory failure secondary to pneumonia and influenza requiring intubation (06/03) Influenza A positive; negative for COVID, RSV Urine Legionella Ag negative. Urine pneumococcal Ag positive. Mycoplasma IgM negative. CT Chest/Abd/Pelvis 06/03: * Dense bilateral pulmonary infiltrates with loculated dense effusion within the left upper lobe, similar to what one might see with an adjacent fracture. Although, significant respiratory artifact renders this evaluation limited.Perhaps once adequate resuscitation has been performed and lung findings are improving repeat imaging may be attempted with intravenous contrast, in order to evaluate for the presence or absence of acute traumatic injury. * Hepatosplenomegaly. * Free fluid within the deep pelvis, never a normal finding in a male patient. Sedated with fentanyl, Versed. Off Nimbex now ABG noted. Vent management per shipping receiving manager. (3) Spontaneous pneumothorax: Code(s): J93.83 - Other pneumothorax Status: Acute Assessment and Plan: Patient decompensated with workup revealing a left PTX Chest tube placed with good response evening 06/08. Chest tube management per shipping receiving manager. Try to minimize barotrauma. (4) Fungemia: Code(s): B49 - Unspecified mycosis Status: Acute Assessment and Plan: As above. Etiology unclear. Consider fungal PNA. HIV was negative on 06/03 Continue micafungin (5) Pneumonia: Code(s): J18.9 - Pneumonia, unspecified organism Status: Acute Assessment and Plan: See above (6) Hyponatremia: Code(s): E87.1 - Hypo-osmolality and hyponatremia Status: Acute Assessment and Plan: Hyponatremia with sodium levels of 117 on admission. Etiology not clear but consider excessive water intake, PNA, pain, SIADH, CHF and/or SSRI Patient received adequate IV fluids Na level was climbing slowly but jumped to 132. Despite D5W and Desmopressin, sodium climbed to normal Nephrology following and appreciate their input. Sodium now elevated to 153 felt related to insensible losses. Add D5W? Continue to monitor sodium levels (7) SABA (acute kidney injury): Code(s): N17.9 - Acute kidney failure, unspecified Status: Acute Assessment and Plan: Baseline creatinine unknown Presented with creatinine of 1.5 for which could be secondary to sepsis and hypovolemia Status post IV fluids Appreciate nephrology following the patient 06/03: CTA chest abdomen pelvis did not show any hydronephrosis renal calculi Jimenez in place, urine output has improved; probably post-ATN diuresis Urine lytes reflective of prerenal picture, patient has had adequate IV fluids No contrast exposure Cr trended to normal. Continue to monitor urine output, electrolytes and renal function (8) Atrial fibrillation with RVR: Code(s): I48.91 - Unspecified atrial fibrillation Status: Acute Assessment and Plan: Status post DC cardioversion in ER. Currently on heparin infusion. Appreciate cardiology evaluation and recommendations Echo 06/05 with EF 30-35%, grade I diastolic dysfxn, mild valve disease and PASP 34. Patient received amiodarone bolus x2 then Amiodarone drip. He has been deescalated to oral Amiodarone. Was on Heparin drip but held due to PTX. Changed to therapeutic Lovenox now. Monitor on tele (9) Elevated brain natriuretic peptide (BNP) level: Code(s): R79.89 - Other specified abnormal findings of blood chemistry Status: Acute Assessment and Plan: Patient has elevated BNP of 4190, although no evidence of volume overload CT chest showed multifocal pneumonia Echocardiogram was above Follow (10) Hypertension: Code(s): I10 - Essential (primary) hypertension Status: Acute Assessment and Plan: As above. Off pressors now Metoprolol resumed. Follow (11) Influenza A: Code(s): J10.1 - Influenza due to other identified influenza virus with other respiratory manifestations Status: Acute Assessment and Plan: Patient was tested positive for influenza A He completed a course of Tamiflu 06/09/24 (12) Schizophrenia: Code(s): F20.9 - Schizophrenia, unspecified Status: Acute Assessment and Plan: History of schizophrenia and other behavior issues Unknown if he takes any medications Plan DVT prophylaxis - Lovenox Stress ulcer prophylaxis -Protonix Code Status -DNR Subjective Date/time seen: 06/11/24 08:31 Interval history: 49yo male smoker with history of HTN, schizophrenia, suicide attempt, depression, and possible alcohol abuse who presented to the emergency department via EMS from [facility] after he was found to have abnormal vital signs. Patient with acute respiratory failure, pneumonia, bacteremia, acute kidney injury, hyponatremia, and AFib RVR status post DC cardioversion. Patient Edward intubated and sedated. He is having fevers. Review of Systems Review of Systems: ROS unobtainable: Yes unobtainable due to endotracheal tube Exam Narrative: Tm 101.5 101.1 131/74 96 20 92% MV Gen - Intubated, sedated HEENT - ETT and OG secured Chest - mildly coarse BS with left chest tube secured. CV - RRR S1/S2 with frequent extra beats. Tele showing PVCs Abd - Soft, Positive BS - Jimenez secured draining clear yellow urine Ext - no pedal edema. Rt femoral central line Psych - unable to assess Skin - Warm and dry Objective Data Vital Signs Vital Signs: Vital Signs - 24 hr 06/10/24 08:54 06/10/24 08:57 06/10/24 09:00 Temperature 101.5 F H Pulse Rate 107 H 82 Respiratory Rate 18 27 H Blood Pressure Pulse Oximetry Oxygen Delivery Fraction of Inspired Oxygen 06/10/24 09:00 06/10/24 09:30 06/10/24 10:00 Temperature Pulse Rate 96 95 99 Respiratory Rate 25 H 26 H Blood Pressure Pulse Oximetry Oxygen Delivery Fraction of Inspired Oxygen 06/10/24 10:00 06/10/24 10:00 06/10/24 10:00 Temperature Pulse Rate 96 97 97 Respiratory Rate 26 H 27 H 25 H Blood Pressure 146/75 H Pulse Oximetry 99 Oxygen Delivery Fraction of Inspired Oxygen 06/10/24 10:38 06/10/24 12:00 06/10/24 12:00 Temperature Pulse Rate 91 88 87 Respiratory Rate 31 H Blood Pressure Pulse Oximetry 97 97 Oxygen Delivery Mechanical Ventilation Mechanical Ventilation Fraction of Inspired Oxygen 40 40 06/10/24 12:00 06/10/24 12:00 06/10/24 12:00 Temperature Pulse Rate 94 110 H Respiratory Rate 27 H 35 H Blood Pressure 164/98 H Pulse Oximetry 95 Oxygen Delivery Fraction of Inspired Oxygen 40 06/10/24 12:00 06/10/24 12:30 06/10/24 12:30 Temperature Pulse Rate 110 H 111 H 120 H Respiratory Rate 35 H 32 H 36 H Blood Pressure Pulse Oximetry Oxygen Delivery Fraction of Inspired Oxygen 06/10/24 13:00 06/10/24 13:00 06/10/24 14:00 Temperature Pulse Rate 114 H 125 H 92 Respiratory Rate 31 H 37 H 25 H Blood Pressure Pulse Oximetry Oxygen Delivery Fraction of Inspired Oxygen 06/10/24 14:00 06/10/24 14:00 06/10/24 14:56 Temperature Pulse Rate 94 92 93 Respiratory Rate 25 H Blood Pressure 154/89 H Pulse Oximetry 100 95 Oxygen Delivery Mechanical Ventilation Fraction of Inspired Oxygen 40 06/10/24 14:56 06/10/24 15:00 06/10/24 15:05 Temperature Pulse Rate 92 95 104 H Respiratory Rate 22 H 25 H 26 H Blood Pressure Pulse Oximetry Oxygen Delivery Fraction of Inspired Oxygen 06/10/24 15:33 06/10/24 15:33 06/10/24 15:33 Temperature Pulse Rate 104 H 99 Respiratory Rate 26 H Blood Pressure Pulse Oximetry 95 Oxygen Delivery Mechanical Ventilation Fraction of Inspired Oxygen 40 40 06/10/24 15:47 06/10/24 16:00 06/10/24 16:00 Temperature Pulse Rate 92 94 92 Respiratory Rate 25 H 27 H Blood Pressure 149/92 H Pulse Oximetry 97 Oxygen Delivery Fraction of Inspired Oxygen 06/10/24 17:00 06/10/24 17:02 06/10/24 17:22 Temperature Pulse Rate 91 101 H 110 H Respiratory Rate 26 H Blood Pressure Pulse Oximetry 97 93 Oxygen Delivery Mechanical Ventilation Mechanical Ventilation Fraction of Inspired Oxygen 40 40 06/10/24 17:38 06/10/24 17:40 06/10/24 17:41 Temperature Pulse Rate 98 89 Respiratory Rate 30 H 30 H Blood Pressure Pulse Oximetry 89 L Oxygen Delivery Mechanical Ventilation Fraction of Inspired Oxygen 40 06/10/24 17:54 06/10/24 18:00 06/10/24 18:04 Temperature 101.3 F H Pulse Rate 94 94 Respiratory Rate 32 H 31 H Blood Pressure 142/89 H Pulse Oximetry 94 96 Oxygen Delivery Mechanical Ventilation Fraction of Inspired Oxygen 50 06/10/24 18:09 06/10/24 18:20 06/10/24 18:21 Temperature Pulse Rate 98 94 89 Respiratory Rate 23 H 26 H 27 H Blood Pressure Pulse Oximetry Oxygen Delivery Fraction of Inspired Oxygen 06/10/24 18:41 06/10/24 19:00 06/10/24 20:00 Temperature Pulse Rate 94 94 101 H Respiratory Rate 25 H 28 H Blood Pressure Pulse Oximetry Oxygen Delivery Fraction of Inspired Oxygen 06/10/24 20:00 06/10/24 20:00 06/10/24 20:00 Temperature 100.8 F H Pulse Rate 109 H 109 H Respiratory Rate 28 H 28 H Blood Pressure 138/79 Pulse Oximetry 93 93 Oxygen Delivery Mechanical Ventilation Fraction of Inspired Oxygen 50 50 06/10/24 20:49 06/10/24 20:49 06/10/24 21:05 Temperature Pulse Rate 95 95 95 Respiratory Rate 23 H 23 H Blood Pressure Pulse Oximetry 93 Oxygen Delivery Mechanical Ventilation Fraction of Inspired Oxygen 50 06/10/24 21:25 06/10/24 21:36 06/10/24 21:37 Temperature Pulse Rate 112 H 111 H 112 H Respiratory Rate 31 H 34 H Blood Pressure Pulse Oximetry Oxygen Delivery Fraction of Inspired Oxygen 06/10/24 21:38 06/10/24 21:47 06/10/24 21:51 Temperature Pulse Rate 112 H 114 H 103 H Respiratory Rate 29 H 29 H Blood Pressure Pulse Oximetry Oxygen Delivery Fraction of Inspired Oxygen 06/10/24 22:00 06/10/24 22:00 06/10/24 22:00 Temperature Pulse Rate 99 99 99 Respiratory Rate 28 H 28 H Blood Pressure Pulse Oximetry Oxygen Delivery Fraction of Inspired Oxygen 06/10/24 22:00 06/10/24 22:54 06/10/24 22:54 Temperature 100.6 F H Pulse Rate 99 88 88 Respiratory Rate 28 H 23 H 23 H Blood Pressure 132/85 Pulse Oximetry 94 Oxygen Delivery Fraction of Inspired Oxygen 06/10/24 23:53 06/10/24 23:53 06/11/24 00:00 Temperature Pulse Rate 97 97 96 Respiratory Rate 29 H 29 H 25 H Blood Pressure Pulse Oximetry 92 Oxygen Delivery Mechanical Ventilation Fraction of Inspired Oxygen 50 06/11/24 00:00 06/11/24 00:00 06/11/24 00:00 Temperature 101 F H Pulse Rate 89 96 Respiratory Rate 25 H Blood Pressure 134/74 Pulse Oximetry 92 Oxygen Delivery Fraction of Inspired Oxygen 50 06/11/24 00:00 06/11/24 00:00 06/11/24 00:01 Temperature Pulse Rate 97 97 87 Respiratory Rate 26 H 26 H 22 H Blood Pressure Pulse Oximetry Oxygen Delivery Fraction of Inspired Oxygen 06/11/24 00:45 06/11/24 01:50 06/11/24 01:53 Temperature Pulse Rate 91 90 87 Respiratory Rate 22 H 22 H Blood Pressure Pulse Oximetry 93 Oxygen Delivery Mechanical Ventilation Fraction of Inspired Oxygen 50 06/11/24 01:54 06/11/24 02:00 06/11/24 02:00 Temperature 100.0 F H Pulse Rate 87 84 84 Respiratory Rate 23 H 24 H Blood Pressure 116/61 Pulse Oximetry 94 Oxygen Delivery Fraction of Inspired Oxygen 06/11/24 02:00 06/11/24 02:06 06/11/24 02:39 Temperature Pulse Rate 84 87 99 Respiratory Rate 24 H 23 H 29 H Blood Pressure Pulse Oximetry Oxygen Delivery Fraction of Inspired Oxygen 06/11/24 02:40 06/11/24 02:40 06/11/24 03:59 Temperature Pulse Rate 99 99 91 Respiratory Rate 29 H 29 H Blood Pressure Pulse Oximetry 93 Oxygen Delivery Mechanical Ventilation Fraction of Inspired Oxygen 50 06/11/24 04:00 06/11/24 04:00 06/11/24 04:00 Temperature 100.1 F H Pulse Rate 91 99 Respiratory Rate 25 H Blood Pressure 134/79 Pulse Oximetry 93 Oxygen Delivery Fraction of Inspired Oxygen 50 06/11/24 04:00 06/11/24 04:00 06/11/24 04:45 Temperature Pulse Rate 99 99 104 H Respiratory Rate 23 H 23 H 28 H Blood Pressure Pulse Oximetry Oxygen Delivery Fraction of Inspired Oxygen 06/11/24 05:00 06/11/24 05:15 06/11/24 05:48 Temperature Pulse Rate 101 H 91 87 Respiratory Rate 25 H 27 H Blood Pressure Pulse Oximetry 91 94 Oxygen Delivery Mechanical Ventilation Mechanical Ventilation Fraction of Inspired Oxygen 50 50 06/11/24 06:00 06/11/24 06:00 06/11/24 06:00 Temperature 100.4 F H Pulse Rate 89 89 89 Respiratory Rate 23 H 23 H Blood Pressure 122/66 Pulse Oximetry 93 Oxygen Delivery Fraction of Inspired Oxygen 06/11/24 06:13 06/11/24 06:38 06/11/24 06:46 Temperature 100.6 F H Pulse Rate 89 110 H Respiratory Rate 25 H 38 H Blood Pressure Pulse Oximetry Oxygen Delivery Fraction of Inspired Oxygen 06/11/24 06:54 06/11/24 07:20 06/11/24 07:21 Temperature Pulse Rate 110 H 106 H 100 Respiratory Rate 40 H 27 H 25 H Blood Pressure Pulse Oximetry Oxygen Delivery Fraction of Inspired Oxygen 06/11/24 08:00 06/11/24 08:07 06/11/24 08:07 Temperature 101.1 F H Pulse Rate 99 98 96 Respiratory Rate 20 Blood Pressure 131/74 Pulse Oximetry 92 Oxygen Delivery Fraction of Inspired Oxygen Intake/Output Intake/Output: Intake & Output 06/08/24 06/09/24 06/10/24 06/11/24 23:59 23:59 23:59 23:59 Intake Total 3286.7 2847.8 2181.5 1439.1 Output Total 2600 2725 1550 1175 Balance 686.7 122.8 631.5 264.1 Meds/Results Medications: Active Medications Generic Name Dose Route Start Last Admin Trade Name Freq PRN Reason Stop Dose Admin Acetaminophen 650 mg 06/03/24 13:56 06/11/24 06:46 Acetaminophen Elixir 325 Mg/10.15 Ml Udc FEED TUBE 650 mg Q4H PRN Administration Fever Albuterol/Ipratropium 3 ml 06/03/24 13:50 Ipratropium 0.5 Mg/Albuterol Sulfate 2.5 Mg Ampul.Neb 3 Ml INHALATION Q6HRT PRN Wheezng Albuterol/Ipratropium 3 ml 06/03/24 20:00 06/11/24 01:54 Ipratropium 0.5 Mg/Albuterol Sulfate 2.5 Mg Ampul.Neb 3 Ml INHALATION 3 ml Q6HRT ARABELLA Administration Amiodarone HCl 400 mg 06/06/24 09:40 06/11/24 08:07 Amiodarone Hcl 200 Mg Tablet PO 06/13/24 09:39 400 mg Q12HR ARABELLA Administration Amiodarone HCl 200 mg 06/14/24 08:00 Amiodarone Hcl 200 Mg Tablet PO DAILY@0800 ARABELLA Dextrose 12.5 gm 06/03/24 13:46 Dextrose 50% 25 Gm/50 Ml Syringe IV PUSH PRN PRN Hypoglycemia Protocol Enoxaparin Sodium 75 mg 06/10/24 23:00 06/11/24 08:08 Enoxaparin 80 Mg/0.8 Ml Syringe SUB-Q 75 mg Q12H ARABELLA Administration Glucagon 1 mg 06/03/24 13:46 Glucagon For Inj 1 Mg Vial IM PRN PRN Hypoglycemia Protocol Glucose 15 gm 06/03/24 13:46 Glucose Oral Gel 15 Gm Of Glucse In 37.5 Gm Tube PO PRN PRN Hypoglycemia Protocol Heparin Sodium (Porcine) 6,000 units 06/03/24 12:33 06/04/24 23:06 Heparin Sodium 5,000 Units/Ml Vial IV PUSH 6,000 units PRN PRN Administration aPTT less than 55 seconds Heparin Sodium (Porcine) 3,000 units 06/03/24 12:33 06/06/24 05:43 Heparin Sodium 5,000 Units/Ml Vial IV PUSH 3,000 units PRN PRN Administration aPTT 55 - 70 seconds Hydralazine HCl 10 mg 06/10/24 11:11 Hydralazine Hcl 20 Mg/Ml Vial IV PUSH Q4H PRN Blood Pressure - High Heparin Sodium/Dextrose 25,000 units in 250 mls @ 0 mls/hr 06/03/24 12:35 06/09/24 19:27 Heparin Sodium/D5w 100 Units/Ml IV CONT Infused .Q0M ARABELLA Titration Protocol Dextrose 1,000 mls @ 100 mls/hr 06/03/24 13:46 Dextrose 5% 1,000 Ml IVPB PRN PRN Hypoglycemia Protocol Fentanyl Citrate 2,500 mcg in 250 mls @ 15 mls/hr 06/03/24 13:50 06/11/24 06:54 Fentanyl 2,500 Mcg/Ns 250 Ml IV CONT 150 mcg/hr .[id number] ARABELLA 15 mls/hr Titration Protocol 150 MCG/HR Norepinephrine Bitartrate 8 mg in 250 mls @ 0 mls/hr 06/03/24 17:50 06/06/24 17:43 Levophed 8 Mg/D5w 250 Ml IV CONT Infused .Q0M ARABELLA Titration Protocol 0 MCG/MIN Cefepime HCl 2 gm in 50 mls @ 100 mls/hr 06/04/24 15:00 06/11/24 02:07 Maxipime 2 Gm/Ns 50 Ml IVPB 100 mls/hr Q12H ARABELLA Administration Micafungin Sodium 100 mg/ 100 mls @ 100 mls/hr 06/08/24 09:00 06/10/24 11:32 Sodium Chloride IVPB 100 mls/hr DAILY ARABELLA Administration Cisatracurium Besylate 200 mg/ 100 mls @ 0 mls/hr 06/09/24 03:00 06/09/24 18:00 Sodium Chloride IVPB 0 mcg/kg/min .Q0M ARABELLA 0 mls/hr Titration Protocol Vancomycin HCl 1,500 mg in 500 mls @ 250 mls/hr 06/10/24 00:00 06/11/24 00:00 Vancomycin 1,500 Mg/Ns 500 Ml IVPB 250 mls/hr Q12H ARABELLA Administration Propofol 100 mls @ 22.47 mls/hr 06/10/24 17:25 06/11/24 07:21 Diprivan IV CONT 50 mcg/kg/min .Q4H28M ARABELLA 22.47 mls/hr Administration Protocol 50 MCG/KG/MIN Insulin Aspart 3 - 6 units 06/03/24 18:00 06/11/24 05:50 Insulin Aspart (*Bkc) 100 Units/Ml SUB-Q Not Given Q6HR ARABELLA Protocol Insulin Glargine 5 units 06/09/24 09:00 06/11/24 08:08 Insulin Glargine (*Bkc) 100 Units/Ml SUB-Q 5 units DAILY ARABELLA Administration Metoprolol Tartrate 50 mg 06/09/24 09:00 06/11/24 08:07 Metoprolol Tartrate 50 Mg Tab FEED TUBE 50 mg Q12HR ARABELLA Administration Midazolam HCl 2 mg 06/03/24 13:48 06/03/24 16:40 Midazolam Hcl (*Crx) 2 Mg/2 Ml Vial IV PUSH 2 mg Q5M PRN Administration ventilator asynchrony Miscellaneous Information 0 each 06/08/24 00:01 06/10/24 00:07 Ivs In Normal Saline (If Possible) XX 07/08/24 00:00 Not Given CLARIFY ARABELLA Miscellaneous Information 0 each 06/11/24 00:01 Cisatracurium Renew Order If Still Needed Or Will Auto D/C XX 07/11/24 00:00 CLARIFY ARABELLA Multi-Ingred Cream/Lotion/Oil/Oint 1 applic 06/03/24 14:00 06/11/24 08:08 Mineral Oil/White Petrolatum Ointment EACH EYE 1 applic Q12HR ARABELLA Administration Pantoprazole Sodium 40 mg 06/04/24 09:00 06/11/24 08:07 Pantoprazole Sodium Iv 40 Mg Vial IV PUSH 40 mg QAM ARABELLA Administration Polyethylene Glycol 17 gm 06/09/24 10:25 06/11/24 08:08 Polyethylene Glycol 3350 17 Gm Powd.Pack PO 17 gm QAM ARABELLA Administration Sodium Chloride 10 ml 06/03/24 22:00 06/11/24 04:52 Central Line Flush IV PUSH 10 ml Q8HR ARABELLA Administration Sodium Chloride 20 ml 06/03/24 19:36 06/11/24 04:53 Central Line Flush IV PUSH 20 ml PRN PRN Administration after blood draws Radiology Results: ITS Impressions Chest/Abdomen/Pelvis CT 06/03/24 17:44 IMPRESSION: Dense bilateral pulmonary infiltrates. Loculated dense effusion within the left upper lobe, similar to what one might see with an adjacent fracture. Although, significant respiratory artifact renders this evaluation limited. Perhaps once adequate resuscitation has been performed and lung findings are improving repeat imaging may be attempted with intravenous contrast, in order to evaluate for the presence or absence of acute traumatic injury. Hepatosplenomegaly. Free fluid within the deep pelvis, never a normal finding in a male patient. Abdomen Ultrasound 06/05/24 08:52 IMPRESSION: 1. Small volume of ascites. Chest X-Ray 06/11/24 07:40 Impression: Stable extensive bilateral pneumonia versus possibly pulmonary edema. Correlate clinically. Stable support tubes. No definite pneumothorax. Labs Labs: Laboratory Results - last 24 hr 06/10/24 06/10/24 06/10/24 05:24 11:56 17:43 WBC RBC Hgb Hct MCV MCH MCHC RDW Plt Count MPV Immature Gran % (Auto) Neut % (Auto) Lymph % (Auto) [place] % (Auto) Eos % (Auto) Baso % (Auto) Lymph # (Auto) [place] # (Auto) Eos # (Auto) Baso # (Auto) Abs Immat Gran (auto) Absolute Neuts (auto) Absolute Nucleated RBC Total Counted Neutrophils % (Manual) Band Neutrophils % Lymphocytes % (Manual) Monocytes % (Manual) Nucleated RBC % Abs Neuts (Manual) Abs Lymphs (Manual) Abs Monocytes (Manual) Platelet Estimate Hypochromasia Anisocytosis Target Cells Schistocytes Puncture Site ABG pH ABG pCO2 ABG pO2 ABG PO2/FiO2 Ratio ABG HCO3 ABG O2 Saturation ABG O2 Content ABG Base Excess A-a Gradient Oxyhemoglobin Carboxyhemoglobin Methemoglobin Reduced Hemoglobin Total Hemoglobin O2 Delivery Device O2 Liters/Min Minute Volume Vent Rate Vent Mode FiO2 Tidal Volume PEEP Peak Inspir Pressure Pressure Support Sodium Potassium Chloride Carbon Dioxide Anion Gap BUN Creatinine Estim Creat Clear Calc Estimated GFR Glucose POC Capillary Glucose 120 H 145 H Calcium Phosphorus Magnesium Total Bilirubin AST ALT Alkaline Phosphatase Total Protein Albumin Triglycerides 111 06/10/24 06/11/24 06/11/24 23:55 04:44 04:49 WBC 27.1 H RBC 3.01 L Hgb 9.3 L Hct 29.1 L MCV 96.7 MCH 30.9 MCHC 32.0 RDW 14.4 Plt Count 332 MPV 9.4 Immature Gran % (Auto) Not Reportable Neut % (Auto) Not Reportable Lymph % (Auto) Not Reportable [place] % (Auto) Not Reportable Eos % (Auto) Not Reportable Baso % (Auto) Not Reportable Lymph # (Auto) Not Reportable [place] # (Auto) Not Reportable Eos # (Auto) Not Reportable Baso # (Auto) Not Reportable Abs Immat Gran (auto) Not Reportable Absolute Neuts (auto) Not Reportable Absolute Nucleated RBC Not Reportable Total Counted 100 Neutrophils % (Manual) 84 H Band Neutrophils % 4 Lymphocytes % (Manual) 10.0 L Monocytes % (Manual) 2 L Nucleated RBC % Not Reportable Abs Neuts (Manual) 23.84 H Abs Lymphs (Manual) 2.71 Abs Monocytes (Manual) 0.54 Platelet Estimate Adequate Hypochromasia 1+ Anisocytosis 1+ Target Cells 1+ Schistocytes None seen Puncture Site Right radial ABG pH 7.489 H ABG pCO2 38.2 ABG pO2 55.7 L ABG PO2/FiO2 Ratio 1.11 ABG HCO3 28.4 H ABG O2 Saturation 91.3 L ABG O2 Content 16.1 ABG Base Excess 4.8 A-a Gradient 257.8 Oxyhemoglobin 90.0 Carboxyhemoglobin 0.5 Methemoglobin 0.2 Reduced Hemoglobin 9.3 H Total Hemoglobin 12.7 O2 Delivery Device Ventilator O2 Liters/Min Not Reportable Minute Volume Not Reportable Vent Rate 22 Vent Mode Cmv FiO2 50 Tidal Volume 450 PEEP 5 Peak Inspir Pressure Not Reportable Pressure Support Not Reportable Sodium 153 H Potassium 3.9 Chloride 115 H Carbon Dioxide 35 H Anion Gap 3 L BUN 47 H D Creatinine 0.96 Estim Creat Clear Calc 78 Estimated GFR > 60 Glucose 141 H POC Capillary Glucose 128 H Calcium 8.1 L Phosphorus 3.2 Magnesium 1.9 Total Bilirubin 0.5 AST 52 ALT 30 Alkaline Phosphatase 85 Total Protein 6.0 L Albumin 2.2 L Triglycerides
[2024-06-11] MEDS: MIDAZOLAM HCL (*CRX) 2 MG/2 ML VIAL 4 MG IV PUSH (08:32)
[2024-06-11] MEDS: FENTANYL 2,500MCG/NS250ML(*CRX 2,500 MCG/250 ML BAG 20 MCG IV CONT ×2 (10:00→16:54)
[2024-06-11] MEDS: MICAFUNGIN SODIUM 100 MG in SODIUM CHLORIDE 0.9% IV 100 ML IVPB (10:00)
--- NOTE | 2024-06-11 11:25 | PCFNICU ---
ICU Rounding Note: Pt current nutrition is Vital AF 1.2 @ 70 ml/h. Flush 250 ml q 4 hours. Nutrition recommendation: Decrease tube feeding rate to Vital AF 1.2 @50 ml/h because of propofol. )Current dose of propofol 22.47 ml/h=593 kcal. Total kcal with dsldazfq=1600 kcal/day. ) Add prosource 1x day (90 kcal, 20 g protein) Last recorded weight is 75.9 kg. Bowel Motility: No BMs are recorded Labs Reviewed: Hgb 9.3, Hct 29.1, Alb 2.2, Na 153, BUN 47, Glu 141 Meds Noted: Fentanyl, versed, propofol @ 22/47 ml/h=593 kcal/day. Lantus, novolog, protonix. Pressors are off. Skin: No skin issues Additional Notes: Recommend decreasing tube feeding rate. Elsi AF 1.2 @ 50 ml/h provides 1320 kcal, 82.5 g protein, 892 ml free water. Add Prosource 1x day total 1410 kcal, 103 g protein, 892 ml free water. Total kcal + propofol = 2003 kcal/day. Following daily in ICU rounds. Will monitor weight, labs, skin, diet orders, meds every Tuesday and Tuesday. .
[2024-06-11 12:11] LABS: Glucose Point of Care 96 mg/dl (65-105)
--- NOTE | 2024-06-11 15:04 | P.PNINT_ITS ---
Progress Note: A&P Assessment and Plan (1) Spontaneous pneumothorax: Code(s): J93.83 - Other pneumothorax Status: Acute Assessment and Plan: 06/08 late evening/night, patient was tachypneic, hypoxic, a tachycardic. Start chest x-ray showed large left-sided pneumothorax status post small more chest tube placed by ER physician -repeat chest x-ray with almost resolution of the left-sided pneumothorax (2) Acute respiratory failure: Code(s): J96.00 - Acute respiratory failure, unspecified whether with hypoxia or hypercapnia Status: Acute Assessment and Plan: Acute respiratory failure secondary to pneumonia -06/03: intubated in the ER -patient remains on CMV mode of ventilation, peep of 12 and 50% FiO2 this morning -06/03: Patient was proned for approximately 20 hours - chest x-ray this mornin. Slight improvement in bilateral multifocal pneumonia mid and lower lung zones. 2. Endotracheal, nasogastric and left chest tubes in expected position -influenza A positive -negative for COVID, RSV -urine Legionella negative -urine pneumococcal antigen positive -mycoplasma pneumonia none detected -continue bronchodilators -sedated with fentanyl, Versed. Off Nimbex since 06/06. Weaning sedation, patient opens his eyes and follows commands. Have asked the bedside RN start Precedex infusion and discontinue sedation to evaluate for extubation -06/11: Patient was switched back to fentanyl Versed infusion overnight as he did not tolerate Precedex or propofol, patient was tachypneic, dyssynchronous with the ventilator. WILL START LOW-DOSE SEROQUEL 06/03/2024: CT chest, abdomen, pelvis IMPRESSION: Dense bilateral pulmonary infiltrates. Loculated dense effusion within the left upper lobe, similar to what one might see with an adjacent fracture. Although, significant respiratory artifact renders this evaluation limited. Perhaps once adequate resuscitation has been performed and lung findings are improving repeat imaging may be attempted with intravenous contrast, in order to evaluate for the presence or absence of acute traumatic injury. Hepatosplenomegaly. Free fluid within the deep pelvis, never a normal finding in a male patient. (3) Septic shock: Code(s): A41.9 - Sepsis, unspecified organism; R65.21 - Severe sepsis with septic shock Status: Acute Assessment and Plan: Patient with hypotension, refractory to IV fluids, -etiology likely related to pneumonia, UA was unremarkable -patient received adequate amount of IV fluids -06/03: blood cultures growing -Streptococcus pneumonia 2/2 bottles -lactic acid has normalized -continue cefepime and doxycycline (06/03) -06/06: Will discontinue vancomycin since as strep pneumo was pansensitive -currently OFF Levophed and vasopressin -Continue to maintain MAP > 65 mm Hg or SBP > 100 mm Hg -weaning stress dose steroids (06/03) -06/06: Repeat blood cultures growing yeast and Gram-positive cocci in clusters 1/2 bottles, could be contamination -06/08: Started patient on micafungin and vancomycin, repeat blood cultures with no growth so far. 06/10: Given fevers with a T-max of 101.5? and increasing wbc count, continue micafungin and vancomycin 06/11: Patient febrile with increasing WBC. CT chest abdomen pelvis as under 06/11/2024 CT chest abdomen pelvis IMPRESSION: CHEST: 1. Bilateral pneumonia with slight improvement in the upper lobes and worsening in the lower lobes. 2. Left chest tube with tiny apical pneumothorax. ABDOMEN/PELVIS: 1. No evidence of appendicitis, diverticulitis or intestinal obstruction. 2. Possible gallstones. 3. Retroperitoneal fat stranding which may be inflammatory. Clinical correlation and follow-up advised. 4. Thickened wall of the rectum. Clinical evaluation advised. (4) Pneumonia: Code(s): J18.9 - Pneumonia, unspecified organism Status: Acute Assessment and Plan: See above (5) Hyponatremia: Code(s): E87.1 - Hypo-osmolality and hyponatremia Status: Acute Assessment and Plan: RESOLVED Hyponatremia with sodium levels of 117 on admission Etiology is not clear at this point in this could be secondary to excessive water intake. This could also be secondary to SIADH, congestive heart failure, SSRI, increased water intake -patient received adequate IV fluids -could will discontinue maintenance IV fluids, discussed with Nephrology -nephrology following the patient and appreciate the evaluation and recommendations -sodium levels have normalized continue to monitor Patient currently hypernatremic with sodium of 153, increased free water flushes to 250 mL, discussed with Nephrology (6) SABA (acute kidney injury): Code(s): N17.9 - Acute kidney failure, unspecified Status: Acute Assessment and Plan: Baseline creatinine unknown Presented with creatinine of 1.5 for which could be secondary to sepsis and hypovolemia Status post IV fluids Appreciate nephrology following the patient 06/03: CTA chest abdomen pelvis did not show any hydronephrosis renal calculi Jimenez in place, urine output has been low Urine lytes reflective of prerenal picture, patient has had adequate IV fluids, now in ARDS, -continue to monitor urine output, electrolytes and renal function -06/07: Significant urine output yesterday and overnight -continues to have good urine output, possible polyuric phase of ATN -nephrology following Creatinine has normalized (7) Atrial fibrillation with RVR: Code(s): I48.91 - Unspecified atrial fibrillation Status: Acute Assessment and Plan: Status post DC cardioversion in ER. Currently on heparin infusion. -appreciate cardiology evaluation and recommendations -patient received amiodarone bolus x2, now on amiodarone at 0.5 mg/min -off pressors -now on p.o. amiodarone per Cardiology recommendations - 06/09 HOLD HEPARIN infusion due to PTX, started on metoprolol -06/10: Patient in sinus rhythm with PVCs, bigeminy, will start therapeutic Lovenox Continue therapeutic Lovenox 06/05/2024: Echocardiogram Summary 1. Left ventricular chamber dimension is normal. 2. Left ventricular systolic function is moderately reduced, estimated at 30-35%. 3. There is mildly increased left ventricular wall thickness. 4. The left ventricular diastolic function is grade I diastolic dysfunction. 5. Right ventricular systolic function is normal. 6. There is mild mitral valve regurgitation. 7. There is mild tricuspid valve regurgitation. 8. Estimated pulmonary arterial systolic pressure is 34 mmHg. (8) Elevated brain natriuretic peptide (BNP) level: Code(s): R79.89 - Other specified abnormal findings of blood chemistry Status: Acute Assessment and Plan: Patient has elevated BNP of 4190, although no evidence of volume overload from exam CT chest showed multifocal pneumonia Echocardiogram as above Off IV fluids (9) Hypertension: Code(s): I10 - Essential (primary) hypertension Status: Acute Assessment and Plan: 06/09: Started on home metoprolol -p.r.n. hydralazine (10) Influenza A: Code(s): J10.1 - Influenza due to other identified influenza virus with other respiratory manifestations Status: Acute Assessment and Plan: Patient was tested positive for influenza A, completed 10 days of Tamiflu (11) Schizophrenia: Code(s): F20.9 - Schizophrenia, unspecified Status: Acute Assessment and Plan: History of schizophrenia and other behavior issues Unknown if he takes any medications Plan DVT prophylaxis -continue therapeutic Lovenox Stress ulcer prophylaxis -Protonix Nutrition: tolerating tube feeds, continue MiraLax and senna S Code Status -DNR Total Critical Care Time - 32 minutes Discussed with patient's father and brother updated with his condition and plan of care. I answered all questions Due to a high probability of clinically significant, life threatening deterioration, the patient required my highest level of preparedness to intervene emergently and I personally spent this critical care time directly and personally managing the patient. This critical care time included obtaining a history; examining the patient; pulse oximetry; ordering and review of studies; arranging urgent treatment with development of a management plan; evaluation of patient's response to treatment; frequent reassessment; and discussions with other providers. It was exclusive of separately billable procedures and treating other patients and teaching time. Please see Assessment and Plan section and the rest of the note for further information on patient assessment and treatment This dictation may have been done utilizing a voice recognition system. Attempts have been made to correct errors. However, there may be uncorrected grammatical, spelling, and recognitions errors present. Subjective Date/time seen: 06/11/24 15:04 Interval history: Reason for consult: Acute respiratory failure, pneumonia, bacteremia, acute kidney injury, hyponatremia, AFib RVR status post DC cardioversion 06/03: Intubated 06/08: Spontaneous Pneumothorax status post small bore chest tube by ER physician Fentanyl and Versed 06/11/2024: Patient seen and examined the ICU, remains intubated on CMV mode of ventilation, peep of 5, 50% FiO2. Sedated with fentanyl and Versed infusion. Patient does not open his eyes or follow simple commands. Chest tube in place with low air leak. Patient was on Precedex infusion yesterday and was not tachypneic, dyssynchronous with the vent, patient was started back on Versed and fentanyl infusion. Patient has had good urine output, febrile with a T-max of 101.5. Sodium levels 153 Review of Systems Review of Systems: ROS unobtainable: Yes unobtainable due to medical condition and unobtainable due to mental status Exam Narrative: General: Intubated, sedated, in no acute distress HEENT: Pupils equal and reactive, sclera is clear Lungs/Chest: Coarse breath sounds bilaterally , decreased breath sounds at bases, otherwise adequate air entry, ETT in place, chest tube in place with no air leak Cardiac: Sinus rhythm, rate controlled with PVCs Circulation: Pedal pulses are intact and symmetrical. Abdomen: Soft, nontender, nondistended, hypoactive bowel sounds Extremities: 1+ edema bilateral lower extremities : Jimenez in place Neurologic: Intubated, sedated. Does not open his eyes or follow simple command Skin: No skin lesions or rash noted Objective Data Vital Signs Vital Signs: Vital Signs - 24 hr 06/10/24 15:05 06/10/24 15:33 06/10/24 15:33 Temperature Pulse Rate 104 H 104 H 99 Respiratory Rate 26 H 26 H Blood Pressure Pulse Oximetry 95 Oxygen Delivery Mechanical Ventilation Fraction of Inspired Oxygen 40 06/10/24 15:33 06/10/24 15:47 06/10/24 16:00 Temperature Pulse Rate 92 94 Respiratory Rate 25 H Blood Pressure 149/92 H Pulse Oximetry 97 Oxygen Delivery Fraction of Inspired Oxygen 40 06/10/24 16:00 06/10/24 17:00 06/10/24 17:02 Temperature Pulse Rate 92 91 101 H Respiratory Rate 27 H 26 H Blood Pressure Pulse Oximetry 97 Oxygen Delivery Mechanical Ventilation Fraction of Inspired Oxygen 40 06/10/24 17:22 06/10/24 17:38 06/10/24 17:40 Temperature Pulse Rate 110 H 98 Respiratory Rate 30 H Blood Pressure Pulse Oximetry 93 89 L Oxygen Delivery Mechanical Ventilation Mechanical Ventilation Fraction of Inspired Oxygen 40 40 06/10/24 17:41 06/10/24 17:54 06/10/24 18:00 Temperature 101.3 F H Pulse Rate 89 94 Respiratory Rate 30 H 32 H Blood Pressure 142/89 H Pulse Oximetry 94 96 Oxygen Delivery Mechanical Ventilation Fraction of Inspired Oxygen 50 06/10/24 18:04 06/10/24 18:09 06/10/24 18:20 Temperature Pulse Rate 94 98 94 Respiratory Rate 31 H 23 H 26 H Blood Pressure Pulse Oximetry Oxygen Delivery Fraction of Inspired Oxygen 06/10/24 18:21 06/10/24 18:41 06/10/24 19:00 Temperature Pulse Rate 89 94 94 Respiratory Rate 27 H 25 H 28 H Blood Pressure Pulse Oximetry Oxygen Delivery Fraction of Inspired Oxygen 06/10/24 20:00 06/10/24 20:00 06/10/24 20:00 Temperature 100.8 F H Pulse Rate 101 H 109 H Respiratory Rate 28 H Blood Pressure 138/79 Pulse Oximetry 93 Oxygen Delivery Fraction of Inspired Oxygen 50 06/10/24 20:00 06/10/24 20:49 06/10/24 20:49 Temperature Pulse Rate 109 H 95 95 Respiratory Rate 28 H 23 H Blood Pressure Pulse Oximetry 93 93 Oxygen Delivery Mechanical Ventilation Mechanical Ventilation Fraction of Inspired Oxygen 50 50 06/10/24 21:05 06/10/24 21:25 06/10/24 21:36 Temperature Pulse Rate 95 112 H 111 H Respiratory Rate 23 H 31 H 34 H Blood Pressure Pulse Oximetry Oxygen Delivery Fraction of Inspired Oxygen 06/10/24 21:37 06/10/24 21:38 06/10/24 21:47 Temperature Pulse Rate 112 H 112 H 114 H Respiratory Rate 29 H Blood Pressure Pulse Oximetry Oxygen Delivery Fraction of Inspired Oxygen 06/10/24 21:51 06/10/24 22:00 06/10/24 22:00 Temperature Pulse Rate 103 H 99 99 Respiratory Rate 29 H 28 H 28 H Blood Pressure Pulse Oximetry Oxygen Delivery Fraction of Inspired Oxygen 06/10/24 22:00 06/10/24 22:00 06/10/24 22:54 Temperature 100.6 F H Pulse Rate 99 99 88 Respiratory Rate 28 H 23 H Blood Pressure 132/85 Pulse Oximetry 94 Oxygen Delivery Fraction of Inspired Oxygen 06/10/24 22:54 06/10/24 23:53 06/10/24 23:53 Temperature Pulse Rate 88 97 97 Respiratory Rate 23 H 29 H 29 H Blood Pressure Pulse Oximetry Oxygen Delivery Fraction of Inspired Oxygen 06/11/24 00:00 06/11/24 00:00 06/11/24 00:00 Temperature Pulse Rate 96 89 Respiratory Rate 25 H Blood Pressure Pulse Oximetry 92 Oxygen Delivery Mechanical Ventilation Fraction of Inspired Oxygen 50 50 06/11/24 00:00 06/11/24 00:00 06/11/24 00:00 Temperature 101 F H Pulse Rate 96 97 97 Respiratory Rate 25 H 26 H 26 H Blood Pressure 134/74 Pulse Oximetry 92 Oxygen Delivery Fraction of Inspired Oxygen 06/11/24 00:01 06/11/24 00:45 06/11/24 01:50 Temperature Pulse Rate 87 91 90 Respiratory Rate 22 H 22 H Blood Pressure Pulse Oximetry 93 Oxygen Delivery Mechanical Ventilation Fraction of Inspired Oxygen 50 06/11/24 01:53 06/11/24 01:54 06/11/24 02:00 Temperature Pulse Rate 87 87 84 Respiratory Rate 22 H 23 H Blood Pressure Pulse Oximetry Oxygen Delivery Fraction of Inspired Oxygen 06/11/24 02:00 06/11/24 02:00 06/11/24 02:06 Temperature 100.0 F H Pulse Rate 84 84 87 Respiratory Rate 24 H 24 H 23 H Blood Pressure 116/61 Pulse Oximetry 94 Oxygen Delivery Fraction of Inspired Oxygen 06/11/24 02:39 06/11/24 02:40 06/11/24 02:40 Temperature Pulse Rate 99 99 99 Respiratory Rate 29 H 29 H 29 H Blood Pressure Pulse Oximetry Oxygen Delivery Fraction of Inspired Oxygen 06/11/24 03:59 06/11/24 04:00 06/11/24 04:00 Temperature Pulse Rate 91 91 Respiratory Rate Blood Pressure Pulse Oximetry 93 Oxygen Delivery Mechanical Ventilation Fraction of Inspired Oxygen 50 50 06/11/24 04:00 06/11/24 04:00 06/11/24 04:00 Temperature 100.1 F H Pulse Rate 99 99 99 Respiratory Rate 25 H 23 H 23 H Blood Pressure 134/79 Pulse Oximetry 93 Oxygen Delivery Fraction of Inspired Oxygen 06/11/24 04:45 06/11/24 05:00 06/11/24 05:15 Temperature Pulse Rate 104 H 101 H 91 Respiratory Rate 28 H 25 H Blood Pressure Pulse Oximetry 91 94 Oxygen Delivery Mechanical Ventilation Mechanical Ventilation Fraction of Inspired Oxygen 50 50 06/11/24 05:48 06/11/24 06:00 06/11/24 06:00 Temperature Pulse Rate 87 89 89 Respiratory Rate 27 H 23 H Blood Pressure Pulse Oximetry Oxygen Delivery Fraction of Inspired Oxygen 06/11/24 06:00 06/11/24 06:13 06/11/24 06:38 Temperature 100.4 F H Pulse Rate 89 89 110 H Respiratory Rate 23 H 25 H 38 H Blood Pressure 122/66 Pulse Oximetry 93 Oxygen Delivery Fraction of Inspired Oxygen 06/11/24 06:46 06/11/24 06:54 06/11/24 07:20 Temperature 100.6 F H Pulse Rate 110 H 106 H Respiratory Rate 40 H 27 H Blood Pressure Pulse Oximetry Oxygen Delivery Fraction of Inspired Oxygen 06/11/24 07:21 06/11/24 08:00 06/11/24 08:00 Temperature 101.1 F H Pulse Rate 100 99 89 Respiratory Rate 25 H 20 24 H Blood Pressure 131/74 Pulse Oximetry 92 95 Oxygen Delivery Mechanical Ventilation Fraction of Inspired Oxygen 50 06/11/24 08:00 06/11/24 08:00 06/11/24 08:07 Temperature Pulse Rate 89 98 Respiratory Rate Blood Pressure Pulse Oximetry Oxygen Delivery Fraction of Inspired Oxygen 50 06/11/24 08:07 06/11/24 09:51 06/11/24 09:53 Temperature Pulse Rate 96 79 89 Respiratory Rate 23 H Blood Pressure Pulse Oximetry 94 Oxygen Delivery Mechanical Ventilation Fraction of Inspired Oxygen 50 06/11/24 10:00 06/11/24 10:00 06/11/24 12:00 Temperature 101.5 F H 102.2 F H Pulse Rate 78 105 H 97 Respiratory Rate 14 18 Blood Pressure 110/57 L 116/68 Pulse Oximetry 95 94 Oxygen Delivery Fraction of Inspired Oxygen 06/11/24 12:00 06/11/24 12:00 06/11/24 12:00 Temperature Pulse Rate 105 H 105 H Respiratory Rate 22 H Blood Pressure Pulse Oximetry 93 Oxygen Delivery Mechanical Ventilation Fraction of Inspired Oxygen 50 50 06/11/24 12:30 06/11/24 12:31 06/11/24 14:00 Temperature 102.5 F H Pulse Rate 94 89 105 H Respiratory Rate 24 H 22 H Blood Pressure 125/73 Pulse Oximetry 95 93 Oxygen Delivery Mechanical Ventilation Fraction of Inspired Oxygen 50 06/11/24 14:00 Temperature Pulse Rate 106 H Respiratory Rate Blood Pressure Pulse Oximetry Oxygen Delivery Fraction of Inspired Oxygen Intake/Output Intake/Output: Intake & Output 06/08/24 06/09/24 06/10/24 06/11/24 23:59 23:59 23:59 23:59 Intake Total 3286.7 2847.8 2181.5 1439.1 Output Total 2600 2725 1550 1175 Balance 686.7 122.8 631.5 264.1 Meds/Results Medications: Active Medications Generic Name Dose Route Start Last Admin Trade Name Freq PRN Reason Stop Dose Admin Acetaminophen 650 mg 06/03/24 13:56 06/11/24 06:46 Acetaminophen Elixir 325 Mg/10.15 Ml Udc FEED TUBE 650 mg Q4H PRN Administration Fever Albuterol/Ipratropium 3 ml 06/03/24 13:50 Ipratropium 0.5 Mg/Albuterol Sulfate 2.5 Mg Ampul.Neb 3 Ml INHALATION Q6HRT PRN Wheezng Albuterol/Ipratropium 3 ml 06/03/24 20:00 06/11/24 09:30 Ipratropium 0.5 Mg/Albuterol Sulfate 2.5 Mg Ampul.Neb 3 Ml INHALATION 3 ml Q6HRT ARABELLA Administration Amiodarone HCl 400 mg 06/06/24 09:40 06/11/24 08:07 Amiodarone Hcl 200 Mg Tablet PO 06/13/24 09:39 400 mg Q12HR ARABELLA Administration Amiodarone HCl 200 mg 06/14/24 08:00 Amiodarone Hcl 200 Mg Tablet PO DAILY@0800 ARABELLA Dextrose 12.5 gm 06/03/24 13:46 Dextrose 50% 25 Gm/50 Ml Syringe IV PUSH PRN PRN Hypoglycemia Protocol Enoxaparin Sodium 75 mg 06/10/24 23:00 06/11/24 08:08 Enoxaparin 80 Mg/0.8 Ml Syringe SUB-Q 75 mg Q12H ARABELLA Administration Glucagon 1 mg 06/03/24 13:46 Glucagon For Inj 1 Mg Vial IM PRN PRN Hypoglycemia Protocol Glucose 15 gm 06/03/24 13:46 Glucose Oral Gel 15 Gm Of Glucse In 37.5 Gm Tube PO PRN PRN Hypoglycemia Protocol Heparin Sodium (Porcine) 6,000 units 06/03/24 12:33 06/04/24 23:06 Heparin Sodium 5,000 Units/Ml Vial IV PUSH 6,000 units PRN PRN Administration aPTT less than 55 seconds Heparin Sodium (Porcine) 3,000 units 06/03/24 12:33 06/06/24 05:43 Heparin Sodium 5,000 Units/Ml Vial IV PUSH 3,000 units PRN PRN Administration aPTT 55 - 70 seconds Hydralazine HCl 10 mg 06/10/24 11:11 Hydralazine Hcl 20 Mg/Ml Vial IV PUSH Q4H PRN Blood Pressure - High Heparin Sodium/Dextrose 25,000 units in 250 mls @ 0 mls/hr 06/03/24 12:35 06/09/24 19:27 Heparin Sodium/D5w 100 Units/Ml IV CONT Infused .Q0M ARABELLA Titration Protocol Dextrose 1,000 mls @ 100 mls/hr 06/03/24 13:46 Dextrose 5% 1,000 Ml IVPB PRN PRN Hypoglycemia Protocol Fentanyl Citrate 2,500 mcg in 250 mls @ 15 mls/hr 06/03/24 13:50 06/11/24 06:54 Fentanyl 2,500 Mcg/Ns 250 Ml IV CONT 150 mcg/hr .[id number] ARABELLA 15 mls/hr Titration Protocol 150 MCG/HR Norepinephrine Bitartrate 8 mg in 250 mls @ 0 mls/hr 06/03/24 17:50 06/06/24 17:43 Levophed 8 Mg/D5w 250 Ml IV CONT Infused .Q0M ARABELLA Titration Protocol 0 MCG/MIN Cefepime HCl 2 gm in 50 mls @ 100 mls/hr 06/04/24 15:00 06/11/24 02:07 Maxipime 2 Gm/Ns 50 Ml IVPB 100 mls/hr Q12H ARABELLA Administration Micafungin Sodium 100 mg/ 100 mls @ 100 mls/hr 06/08/24 09:00 06/10/24 11:32 Sodium Chloride IVPB 100 mls/hr DAILY ARABELLA Administration Cisatracurium Besylate 200 mg/ 100 mls @ 0 mls/hr 06/09/24 03:00 06/09/24 18:00 Sodium Chloride IVPB 0 mcg/kg/min .Q0M ARABELLA 0 mls/hr Titration Protocol Vancomycin HCl 1,500 mg in 500 mls @ 250 mls/hr 06/10/24 00:00 06/11/24 00:00 Vancomycin 1,500 Mg/Ns 500 Ml IVPB 250 mls/hr Q12H ARABELLA Administration Propofol 100 mls @ 22.47 mls/hr 06/10/24 17:25 06/11/24 07:21 Diprivan IV CONT 50 mcg/kg/min .Q4H28M ARABELLA 22.47 mls/hr Administration Protocol 50 MCG/KG/MIN Midazolam HCl 100 mg in 100 mls @ 1 mls/hr 06/11/24 08:35 Versed 100 Mg/Ns 100 Ml IV CONT .Q72H ARABELLA Protocol 1 MG/HR Insulin Aspart 3 - 6 units 06/03/24 18:00 06/11/24 05:50 Insulin Aspart (*Bkc) 100 Units/Ml SUB-Q Not Given Q6HR ARABELLA Protocol Insulin Glargine 5 units 06/09/24 09:00 06/11/24 08:08 Insulin Glargine (*Bkc) 100 Units/Ml SUB-Q 5 units DAILY ARABELLA Administration Metoprolol Tartrate 50 mg 06/09/24 09:00 06/11/24 08:07 Metoprolol Tartrate 50 Mg Tab FEED TUBE 50 mg Q12HR ARABELLA Administration Midazolam HCl 2 mg 06/03/24 13:48 06/03/24 16:40 Midazolam Hcl (*Crx) 2 Mg/2 Ml Vial IV PUSH 2 mg Q5M PRN Administration ventilator asynchrony Miscellaneous Information 0 each 06/08/24 00:01 06/10/24 00:07 Ivs In Normal Saline (If Possible) XX 07/08/24 00:00 Not Given CLARIFY ARABELLA Miscellaneous Information 0 each 06/11/24 00:01 Cisatracurium Renew Order If Still Needed Or Will Auto D/C XX 07/11/24 00:00 CLARIFY ARABELLA Multi-Ingred Cream/Lotion/Oil/Oint 1 applic 06/03/24 14:00 06/11/24 08:08 Mineral Oil/White Petrolatum Ointment EACH EYE 1 applic Q12HR ARABELLA Administration Multi-Ingred Cream/Lotion/Oil/Oint 1 applic 06/11/24 09:00 Mineral Oil/White Petrolatum Ointment EACH EYE Q12HR ARABELLA Pantoprazole Sodium 40 mg 06/04/24 09:00 06/11/24 08:07 Pantoprazole Sodium Iv 40 Mg Vial IV PUSH 40 mg QAM ARABELLA Administration Polyethylene Glycol 17 gm 06/09/24 10:25 06/11/24 08:08 Polyethylene Glycol 3350 17 Gm Powd.Pack PO 17 gm QAM ARABELLA Administration Sodium Chloride 10 ml 06/03/24 22:00 06/11/24 04:52 Central Line Flush IV PUSH 10 ml Q8HR ARABELLA Administration Sodium Chloride 20 ml 06/03/24 19:36 06/11/24 04:53 Central Line Flush IV PUSH 20 ml PRN PRN Administration after blood draws Radiology Results: ITS Impressions Abdomen Ultrasound 06/05/24 08:52 IMPRESSION: 1. Small volume of ascites. Chest X-Ray 06/11/24 07:40 Impression: Stable extensive bilateral pneumonia versus possibly pulmonary edema. Correlate clinically. Stable support tubes. No definite pneumothorax. Chest/Abdomen/Pelvis CT 06/11/24 09:34 IMPRESSION: CHEST: 1. Bilateral pneumonia with slight improvement in the upper lobes and worsening in the lower lobes. 2. Left chest tube with tiny apical pneumothorax. ABDOMEN/PELVIS: 1. No evidence of appendicitis, diverticulitis or intestinal obstruction. 2. Possible gallstones. 3. Retroperitoneal fat stranding which may be inflammatory. Clinical correlation and follow-up advised. 4. Thickened wall of the rectum. Clinical evaluation advised. Labs Labs: Laboratory Results - last 24 hr 06/10/24 06/10/24 06/10/24 05:24 17:43 23:55 WBC RBC Hgb Hct MCV MCH MCHC RDW Plt Count MPV Immature Gran % (Auto) Neut % (Auto) Lymph % (Auto) [place] % (Auto) Eos % (Auto) Baso % (Auto) Lymph # (Auto) [place] # (Auto) Eos # (Auto) Baso # (Auto) Abs Immat Gran (auto) Absolute Neuts (auto) Absolute Nucleated RBC Total Counted Neutrophils % (Manual) Band Neutrophils % Lymphocytes % (Manual) Monocytes % (Manual) Nucleated RBC % Abs Neuts (Manual) Abs Lymphs (Manual) Abs Monocytes (Manual) Platelet Estimate Hypochromasia Anisocytosis Target Cells Schistocytes Puncture Site ABG pH ABG pCO2 ABG pO2 ABG PO2/FiO2 Ratio ABG HCO3 ABG O2 Saturation ABG O2 Content ABG Base Excess A-a Gradient Oxyhemoglobin Carboxyhemoglobin Methemoglobin Reduced Hemoglobin Total Hemoglobin O2 Delivery Device O2 Liters/Min Minute Volume Vent Rate Vent Mode FiO2 Tidal Volume PEEP Peak Inspir Pressure Pressure Support Sodium Potassium Chloride Carbon Dioxide Anion Gap BUN Creatinine Estim Creat Clear Calc Estimated GFR Glucose POC Capillary Glucose 145 H 128 H Calcium Phosphorus Magnesium Total Bilirubin AST ALT Alkaline Phosphatase Total Protein Albumin Triglycerides 111 06/11/24 06/11/24 06/11/24 04:44 04:49 12:06 WBC 27.1 H RBC 3.01 L Hgb 9.3 L Hct 29.1 L MCV 96.7 MCH 30.9 MCHC 32.0 RDW 14.4 Plt Count 332 MPV 9.4 Immature Gran % (Auto) Not Reportable Neut % (Auto) Not Reportable Lymph % (Auto) Not Reportable [place] % (Auto) Not Reportable Eos % (Auto) Not Reportable Baso % (Auto) Not Reportable Lymph # (Auto) Not Reportable [place] # (Auto) Not Reportable Eos # (Auto) Not Reportable Baso # (Auto) Not Reportable Abs Immat Gran (auto) Not Reportable Absolute Neuts (auto) Not Reportable Absolute Nucleated RBC Not Reportable Total Counted 100 Neutrophils % (Manual) 84 H Band Neutrophils % 4 Lymphocytes % (Manual) 10.0 L Monocytes % (Manual) 2 L Nucleated RBC % Not Reportable Abs Neuts (Manual) 23.84 H Abs Lymphs (Manual) 2.71 Abs Monocytes (Manual) 0.54 Platelet Estimate Adequate Hypochromasia 1+ Anisocytosis 1+ Target Cells 1+ Schistocytes None seen Puncture Site Right radial ABG pH 7.489 H ABG pCO2 38.2 ABG pO2 55.7 L ABG PO2/FiO2 Ratio 1.11 ABG HCO3 28.4 H ABG O2 Saturation 91.3 L ABG O2 Content 16.1 ABG Base Excess 4.8 A-a Gradient 257.8 Oxyhemoglobin 90.0 Carboxyhemoglobin 0.5 Methemoglobin 0.2 Reduced Hemoglobin 9.3 H Total Hemoglobin 12.7 O2 Delivery Device Ventilator O2 Liters/Min Not Reportable Minute Volume Not Reportable Vent Rate 22 Vent Mode Cmv FiO2 50 Tidal Volume 450 PEEP 5 Peak Inspir Pressure Not Reportable Pressure Support Not Reportable Sodium 153 H Potassium 3.9 Chloride 115 H Carbon Dioxide 35 H Anion Gap 3 L BUN 47 H D Creatinine 0.96 Estim Creat Clear Calc 78 Estimated GFR > 60 Glucose 141 H POC Capillary Glucose 96 Calcium 8.1 L Phosphorus 3.2 Magnesium 1.9 Total Bilirubin 0.5 AST 52 ALT 30 Alkaline Phosphatase 85 Total Protein 6.0 L Albumin 2.2 L Triglycerides Quality VTE Prophylaxis VTE prophylaxis: pharmacologic ordered (currently on heparin drip)
[2024-06-11 15:47] LABS: Vancomycin Trough 17.6 ug/mL (10.0-20.0)
[2024-06-11] MEDS: MIDAZOLAM 100MG/NS 100ML(*CRX) 100 MG/100 ML BAG IV CONT (16:30)
[2024-06-11] MEDS: VANCOMYCIN 1,250 MG/NS 250 ML 1,250 MG/250 ML BAG 166.67 MG IVPB (17:44)
[2024-06-11] MEDS: PROPOFOL IV EMULSION 100 ML 2.28 MG IV CONT (17:51)
[2024-06-11 18:05] LABS: Glucose Point of Care 110 mg/dl (65-105)
[2024-06-11] MEDS: PROPOFOL IV EMULSION 100 ML 18.22 MG IV CONT (20:31)
[2024-06-11 21:16] LABS: Triglycerides 236 mg/dL (<150)
[2024-06-11] MEDS: [UNRECOGNIZED DRUG - REMARK] XX (21:19)
[2024-06-11] MEDS: QUEtiapine FUMARATE 25 MG TABLET PO (21:20)
[2024-06-11] MEDS: SENNA/DOCUSATE SODIUM TABLET 1 TAB PO (21:20)
[2024-06-12] VITALS (51 sets, daily range): BP systolic 82–132; BP diastolic 46–90; PULSE 76–149; RESP 22–31; TEMP 36.9–39.2; O2SAT 86–100
[2024-06-12] MEDS: [UNRECOGNIZED DRUG - REMARK] XX (00:19)
[2024-06-12] MEDS: ENOXAPARIN 80 MG/0.8 ML SYRINGE 75 MG SUB-Q ×3 (00:19→21:06)
[2024-06-12 00:34] LABS: Glucose Point of Care 114 mg/dl (65-105)
[2024-06-12] MEDS: PROPOFOL IV EMULSION 100 ML 18.22 MG IV CONT (01:32)
[2024-06-12] MEDS: IPRATROPIUM 0.5 MG/ALBUTEROL SULFATE 2.5 MG AMPUL.NEB 3 ML INHALATION ×4 (01:47→20:29)
[2024-06-12] MEDS: CEFEPIME 2 GM/NS 50 ML 2 GM/50 ML BAG IVPB ×2 (03:22→16:24)
[2024-06-12] MEDS: FENTANYL 2,500MCG/NS250ML(*CRX 2,500 MCG/250 ML BAG 20 MCG IV CONT ×2 (03:54→17:18)
[2024-06-12] MEDS: ACETAMINOPHEN ELIXIR 325 MG/10.15 ML UDC 650 MG FEED TUBE (04:30)
[2024-06-12] MEDS: MIDAZOLAM HCL (*CRX) 2 MG/2 ML VIAL IV PUSH ×2 (04:31→09:00)
[2024-06-12 04:45] LABS: Alveolar/Arterial O2 Gradient 433.4 mmHg; Base Excess ABG 1.5 mEq/l (+/-2.0); Carboxyhemoglobin 0.4 % THb (0-2.0); Fractional Inspired Oxygen 80 %; HCO3 ABG 30.2 mEq/l (22.0-26.0); Methemoglobin ABG 0.3 %THb (0-1.5); Oxygen Content ABG 16.7 %vol (16.0-22.0); Oxygen Saturation ABG 89.8 % (95.0-100.0); Oxyhemoglobin 89.2 % THb (90.0-100.0); PO2 ABG 66.4 mmHg (80.0-100.0); PO2 FiO2 Ratio Arterial Blood 0.83 %; Reduced Hemoglobin 10.1 %THb (0-5.0); Total Hemoglobin 13.3 g/dL (12.0-18.0)
[2024-06-12 04:46] LABS: Device VENTILATOR; Modified Allen's Test Pass; PCO2 ABG 67.2 mmHg (35.0-45.0); Site Drawn RIGHT RADIAL
[2024-06-12 04:47] LABS: Arterial Blood Gas PEEP 10 cmH2O; Arterial Blood Gas Tidal Volume 450 ml; Arterial Blood Gas Vent Mode CMV; Arterial Blood Gas Ventilator rate 22 /MIN
[2024-06-12] MEDS: PROPOFOL IV EMULSION 100 ML 20.49 MG IV CONT ×4 (05:36→19:18)
[2024-06-12] MEDS: CENTRAL LINE FLUSH 10 ML IV PUSH ×2 (05:37→21:06)
[2024-06-12 05:44] LABS: Glucose Point of Care 115 mg/dl (65-105)
[2024-06-12] MEDS: VANCOMYCIN 1,250 MG/NS 250 ML 1,250 MG/250 ML BAG 166.67 MG IVPB ×2 (05:45→18:05)
[2024-06-12] MEDS: METOPROLOL TARTRATE INJ 5 MG/5 ML VIAL IV PUSH ×2 (06:19→10:25)
[2024-06-12 06:38] LABS: Hematocrit 32.1 % (42.0-52.0); Hemoglobin 9.8 g/dL (14.0-18.0); Mean Corpuscular HGB Conc 30.5 g/dl (32-36); Mean Corpuscular Hemoglobin 30.9 pg (26-34); Mean Corpuscular Volume 101.3 fl (80-100); Mean Platelet Volume 9.4 fl (7.4-10.4); Platelet Count Result 383 k/mm3 (150-375); Red Blood Count 3.17 M/mm3 (4.6-6.20); Red Cell Distribution Width 14.7 % (11.5-14.5); White Blood Count 41.3 K/mm3 (4.5-10.0)
[2024-06-12 07:02] LABS: Alanine Aminotransferase 28 U/L (6-50); Albumin Level 2.2 g/dL (3.5-5.1); Alkaline Phosphatase 104 U/L (38-126); Anion Gap 3 mmol/L (4-12); Aspartate Amino Transferase 44 U/L (17-59); Bilirubin,Total 0.6 mg/dL (0.2-1.3); Blood Urea Nitrogen 47 mg/dL (9-20); Calcium 7.7 mg/dL (8.4-10.2); Carbon Dioxide 33 mmol/L (22-30); Chloride 115 mmol/L (98-107); Estimated CRCL calculation 62 ml/min; Estimated Glomerular Filt Rate > 60; Glucose 110 mg/dL (65-110); Magnesium 1.8 mg/dL (1.6-2.3); Phosphorus 5.7 mg/dL (2.5-4.5); Potassium 4.8 mmol/L (3.4-5.0); Sodium 151 mmol/L (137-145)
[2024-06-12 07:16] LABS: Total Cells Counted 100
[2024-06-12 07:17] LABS: Band Neutrophils Percent 2 % (0-6); Eosinophils Absolute Manual 1.65 K/mm3 (0.02-0.50); Eosinophils Percent Manual 4 % (0-4); Neutrophils Absolute Manual 39.64 K/mm3 (1.3-6.7); Neutrophils Percent Manual 94 % (46-73)
[2024-06-12 07:18] LABS: Platelet Estimate Slightly Increased (Adequate); Schistocytes None Seen
[2024-06-12] MEDS: FUROSEMIDE INJ 40 MG/4 ML VIAL IV PUSH (07:49)
[2024-06-12] MEDS: ROCURONIUM BROMIDE 50 MG/5 ML VIAL IV PUSH ×2 (07:49→10:27)
[2024-06-12] MEDS: CALCIUM GLUC 2,000 MG/NS 100ML 2,000 MG/100 ML BAG 100 MG IVPB (07:58)
[2024-06-12] MEDS: AMIODARONE HCL 200 MG TABLET 400 MG PO ×2 (08:53→21:05)
[2024-06-12] MEDS: PANTOPRAZOLE SODIUM IV 40 MG VIAL IV PUSH (08:53)
[2024-06-12] MEDS: polyethylene glycoL 3350 17 GM POWD.PACK PO (08:53)
[2024-06-12] MEDS: INSULIN GLARGINE (*BKC) 100 UNITS/ML SUB-Q (08:56)
[2024-06-12] MEDS: MINERAL OIL/WHITE PETROLATUM OINTMENT 1 APPLIC EACH EYE ×2 (08:57→21:05)
[2024-06-12] MEDS: MICAFUNGIN SODIUM 100 MG in SODIUM CHLORIDE 0.9% IV 100 ML IVPB (08:57)
--- NOTE | 2024-06-12 10:44 | PCNFU ---
Nutrition Follow-Up Complete: Suboptimal Energy Intake as related to mechanical ventilation as evidenced by NPO. Meet estimated nutritional needs. - Progressing Goal: Pt current nutrition is Vital 1.2 @ 70 ml with flushes 250 ml q 4 hours (for hypernatremia). Nutrition recommendation: Decrease tube feedings to Vital AF 1.2 @ 40 ml/h due to high propofol rate and pt is being proned. Last recorded weight is 74.8 kg. Bowel Motility: No bowel movements. Discussed with RN, will address after pt is turned. Labs Reviewed: Hgb 9.8, Hct 32.1, Alb 2.2, Na 151, BUN 47, Glu 115 Meds Noted: Sedation with fentanyl, propofol @ 20.03=307 kcal. Lantus, novolog, protonix Skin: WNL Additional Notes: Pt had to be proned for respiratory status, so tube feeding will be decreased and re-evaluate tomorrow. Propofol dose remains high. May need to add protein modular if not able to increase tube feeding after proning. Family conference about goals of care. Discussed with MD and RN. Will monitor weight, labs, skin, diet orders, meds every Tuesday and Tuesday.
[2024-06-12] MEDS: AMIODARONE 150 MG/D5W 100 ML 150 MG/100 ML BAG 600 MG IV CONT (10:45)
[2024-06-12] MEDS: NOREPINEPHRINE 8 MG/D5W 250 ML 8 MG/250 ML BAG 9.38 MG IV CONT (10:52)
[2024-06-12] MEDS: AMIODARONE 360 MG/D5W 200 ML 360 MG/200 ML BAG 33.33 MG IV CONT (10:57)
[2024-06-12] MEDS: CISATRACURIUM BESYLATE 20 MG/10 ML VIAL 10 MG IV PUSH (11:12)
[2024-06-12] MEDS: CISATRACURIUM BESYLATE 200 MG in SODIUM CHLORIDE 0.9% IV 80 ML 6.73 ML IV CONT ×2 (11:13→23:31)
[2024-06-12 11:42] LABS: Glucose Point of Care 127 mg/dl (65-105)
--- NOTE | 2024-06-12 13:56 | P.PNINT_ITS ---
Progress Note: A&P Assessment and Plan (1) Spontaneous pneumothorax: Code(s): J93.83 - Other pneumothorax Status: Acute Assessment and Plan: 06/08 late evening/night, patient was tachypneic, hypoxic, a tachycardic. Start chest x-ray showed large left-sided pneumothorax status post chest tube placed by ER physician -repeat chest x-ray with almost resolution of the left-sided pneumothorax with no air leak Monitor (2) Acute respiratory failure: Code(s): J96.00 - Acute respiratory failure, unspecified whether with hypoxia or hypercapnia Status: Acute Assessment and Plan: Acute respiratory failure secondary to pneumonia -06/03: intubated in the ER -06/03: Patient was proned for approximately 20 hours -influenza A positive and likely secondary bacterial pneumococcal pneumonia -negative for COVID, RSV -urine Legionella negative -urine pneumococcal antigen positive -mycoplasma pneumonia none detected -continue bronchodilators -sedated with fentanyl, Versed. Off Nimbex since 06/06. -now respiratory status has worsened again and patient was on 100% FiO2 and 10 of PEEP and satting in 80s. Repeat chest x-ray does not show any pneumothorax but shows show worsening of respiratory status -patient placed in prone position. Peep increased to 14. Paralyzed with rocuronium and Nimbex -Lasix IV 06/03/2024: CT chest, abdomen, pelvis IMPRESSION: Dense bilateral pulmonary infiltrates. Loculated dense effusion within the left upper lobe, similar to what one might see with an adjacent fracture. Although, significant respiratory artifact renders this evaluation limited. Perhaps once adequate resuscitation has been performed and lung findings are improving repeat imaging may be attempted with intravenous contrast, in order to evaluate for the presence or absence of acute traumatic injury. Hepatosplenomegaly. Free fluid within the deep pelvis, never a normal finding in a male patient. (3) Septic shock: Code(s): A41.9 - Sepsis, unspecified organism; R65.21 - Severe sepsis with septic shock Status: Acute Assessment and Plan: Secondary to pneumonia, UA was unremarkable -patient received adequate amount of IV fluids on admission -06/03: blood cultures growing -Streptococcus pneumonia 2/2 bottles -Completed a course of doxycycline (06/03) -06/06: vancomycin was discontent strep pneumo was pansensitive -continues to be on cefepime -off and on norepinephrine. -Continue to maintain MAP > 65 mm Hg or SBP > 100 mm Hg -off stress dose steroids (06/03) -06/06: Repeat blood cultures growing Shakira and Staph epidermidis in 1/2 bottles, could be contamination. Patient was started on micafungin and vancomycin 06/08 06/08 repeat blood cultures with no growth so far. 06/11: Patient febrile with increasing WBC. CT chest abdomen pelvis as under 06/11/2024 CT chest abdomen pelvis IMPRESSION: CHEST: 1. Bilateral pneumonia with slight improvement in the upper lobes and worsening in the lower lobes. 2. Left chest tube with tiny apical pneumothorax. ABDOMEN/PELVIS: 1. No evidence of appendicitis, diverticulitis or intestinal obstruction. 2. Possible gallstones. 3. Retroperitoneal fat stranding which may be inflammatory. Clinical correlation and follow-up advised. 4. Thickened wall of the rectum. Clinical evaluation advised. (4) Pneumonia: Code(s): J18.9 - Pneumonia, unspecified organism Status: Acute Assessment and Plan: See above (5) Hyponatremia: Code(s): E87.1 - Hypo-osmolality and hyponatremia Status: Acute Assessment and Plan: RESOLVED Hyponatremia with sodium levels of 117 on admission Etiology is not clear at this point in this could be secondary to excessive water intake. This could also be secondary to SIADH, congestive heart failure, SSRI, increased water intake -patient received adequate IV fluids -could will discontinue maintenance IV fluids, discussed with Nephrology -nephrology following the patient and appreciate the evaluation and recommendations -sodium levels have normalized continue to monitor Patient currently hypernatremic with sodium of 151, continue increased free water flushes to 250 mL Nephrology following (6) SABA (acute kidney injury): Code(s): N17.9 - Acute kidney failure, unspecified Status: Acute Assessment and Plan: Baseline creatinine unknown Presented with creatinine of 1.5 for which could be secondary to sepsis and hyp ovolemia Status post IV fluids Nephrology follow 06/03: CTA chest abdomen pelvis did not show any hydronephrosis renal calculi Jimenez in place, urine output has been low Urine lytes reflective of prerenal picture, patient has had adequate IV fluids, now in ARDS, -continue to monitor urine output, electrolytes and renal function Creatinine has normalized (7) Atrial fibrillation with RVR: Code(s): I48.91 - Unspecified atrial fibrillation Status: Acute Assessment and Plan: Status post DC cardioversion in ER. Initially patient was on on heparin infusion but now on Lovenox Cardiology consultation Patient was on amiodarone infusion and now on per tube amiodarone and metoprolol Episode of SVT which converted spontaneously 06/05/2024: Echocardiogram Summary 1. Left ventricular chamber dimension is normal. 2. Left ventricular systolic function is moderately reduced, estimated at 30- 35%. 3. There is mildly increased left ventricular wall thickness. 4. The left ventricular diastolic function is grade I diastolic dysfunction. 5. Right ventricular systolic function is normal. 6. There is mild mitral valve regurgitation. 7. There is mild tricuspid valve regurgitation. 8. Estimated pulmonary arterial systolic pressure is 34 mmHg. (8) Elevated brain natriuretic peptide (BNP) level: Code(s): R79.89 - Other specified abnormal findings of blood chemistry Status: Acute Assessment and Plan: Patient has elevated BNP of 4190, although no evidence of volume overload from exam CT chest showed multifocal pneumonia Echocardiogram as above Off IV fluids (9) Hypertension: Code(s): I10 - Essential (primary) hypertension Status: Acute Assessment and Plan: Currently on Levophed (10) Influenza A: Code(s): J10.1 - Influenza due to other identified influenza virus with other respiratory manifestations Status: Acute Assessment and Plan: Patient was tested positive for influenza A, completed 10 days of Tamiflu (11) Schizophrenia: Code(s): F20.9 - Schizophrenia, unspecified Status: Acute Assessment and Plan: History of schizophrenia and other behavior issues Unknown if he takes any medications Plan DVT prophylaxis -continue therapeutic Lovenox Stress ulcer prophylaxis -Protonix Nutrition: tolerating tube feeds, continue MiraLax and senna S Code Status -DNR I spoke to patient's father at bedside and updated him with patient's status including worsening of his respiratory status overnight and patient needed to BT paralyzed and placed in prone position. Father states the patient would not want to continue like this for prolonged ventilator support considering how sick he is and multiple medical problems he has. He believes the patient limited free spirit life and would not Wanna live in such poor quality of life. He is going to talk to his other son. We discussed goals of care and option of palliative care including palliative extubation and comfort care. He will discuss with the patient's brother and make further decisions Total Critical Care Time - 40 minutes Due to a high probability of clinically significant, life threatening deterioration, the patient required my highest level of preparedness to interven e emergently and I personally spent this critical care time directly and personally managing the patient. This critical care time included obtaining a history; examining the patient; pulse oximetry; ordering and review of studies; arranging urgent treatment with development of a management plan; evaluation of patient's response to treatment; frequent reassessment; and discussions with other providers. It was exclusive of separately billable procedures and treating other patients and teaching time. Please see Assessment and Plan section and the rest of the note for further information on patient assessment and treatment This dictation may have been done utilizing a voice recognition system. Attempts have been made to correct errors. However, there may be uncorrected grammatical, spelling, and recognitions errors present. Subjective Date/time seen: 06/12/24 Overnight events reviewed. febrile Continues to be on mechanical ventilation with significant worsening of respiratory status overnight requiring increased oxygenation. On 100% FiO2 this morning and peep of 10 Continues to be on tube feeds Continues to be sedated with propofol and fentanyl Sinus rhythm Interval history: Reason for consult: Acute respiratory failure, pneumonia, bacteremia, acute kidn ey injury, hyponatremia, AFib RVR status post DC cardioversion 06/03: Intubated 06/08: Spontaneous Pneumothorax status post small bore chest tube by ER physician Review of Systems Review of Systems: ROS unobtainable: Yes unobtainable due to medical condition and unobtainable due to mental status Exam Narrative: General: Intubated, sedated, in no acute distress HEENT: Pupils equal and reactive, sclera is clear Lungs/Chest: Coarse breath sounds bilaterally , decreased breath sounds at bases, otherwise adequate air entry, ETT in place, chest tube in place with no air leak Cardiac: Sinus rhythm, rate controlled with PVCs Circulation: Pedal pulses are intact and symmetrical. Abdomen: Soft, nontender, nondistended, hypoactive bowel sounds Extremities: 1+ edema bilateral lower extremities : Jimenez in place Neurologic: Intubated, sedated. Does not open his eyes or follow simple command Skin: No skin lesions or rash noted Objective Data Vital Signs Vital Signs: Vital Signs - 24 hr 06/11/24 14:00 06/11/24 14:00 06/11/24 14:00 Temperature 39.2 C H Pulse Rate 105 H 106 H 102 H Respiratory Rate 22 H 26 H Blood Pressure 125/73 Pulse Oximetry 93 Oxygen Delivery Fraction of Inspired Oxygen 06/11/24 14:30 06/11/24 15:04 06/11/24 15:23 Temperature 38.3 C H Pulse Rate 94 92 Respiratory Rate 24 H Blood Pressure Pulse Oximetry 92 Oxygen Delivery Mechanical Ventilation Fraction of Inspired Oxygen 50 06/11/24 15:35 06/11/24 16:00 06/11/24 16:00 Temperature 39.1 C H Pulse Rate 97 98 90 Respiratory Rate 24 H 24 H 14 Blood Pressure 105/57 L Pulse Oximetry 90 Oxygen Delivery Fraction of Inspired Oxygen 06/11/24 16:00 06/11/24 16:00 06/11/24 16:00 Temperature Pulse Rate 103 H 95 95 Respiratory Rate 21 H 21 H Blood Pressure Pulse Oximetry 93 Oxygen Delivery Mechanical Ventilation Fraction of Inspired Oxygen 50 06/11/24 16:00 06/11/24 16:30 06/11/24 16:42 Temperature Pulse Rate 104 H 106 H Respiratory Rate 14 19 Blood Pressure Pulse Oximetry Oxygen Delivery Fraction of Inspired Oxygen 50 06/11/24 16:54 06/11/24 16:54 06/11/24 17:07 Temperature Pulse Rate 101 H 101 H 88 Respiratory Rate 26 H 26 H Blood Pressure Pulse Oximetry 91 Oxygen Delivery Mechanical Ventilation Fraction of Inspired Oxygen 50 06/11/24 17:45 06/11/24 17:51 06/11/24 18:00 Temperature 38.7 C H 38.7 C H Pulse Rate 99 92 Respiratory Rate 18 16 Blood Pressure 111/60 Pulse Oximetry 93 Oxygen Delivery Fraction of Inspired Oxygen 06/11/24 18:00 06/11/24 18:00 06/11/24 18:00 Temperature Pulse Rate 100 96 101 H Respiratory Rate 25 H 25 H Blood Pressure Pulse Oximetry Oxygen Delivery Fraction of Inspired Oxygen 06/11/24 18:05 06/11/24 18:10 06/11/24 18:20 Temperature Pulse Rate 94 101 H 95 Respiratory Rate 224 H 24 H 24 H Blood Pressure Pulse Oximetry Oxygen Delivery Fraction of Inspired Oxygen 06/11/24 18:30 06/11/24 18:35 06/11/24 18:45 Temperature Pulse Rate 102 H 103 H 101 H Respiratory Rate 21 H 23 H 25 H Blood Pressure Pulse Oximetry Oxygen Delivery Fraction of Inspired Oxygen 06/11/24 18:48 06/11/24 18:49 06/11/24 19:00 Temperature 38.6 C H Pulse Rate 95 101 H Respiratory Rate 21 H 25 H Blood Pressure Pulse Oximetry Oxygen Delivery Fraction of Inspired Oxygen 06/11/24 20:00 06/11/24 20:00 06/11/24 20:00 Temperature Pulse Rate 101 H 101 H 101 H Respiratory Rate 22 H 22 H Blood Pressure Pulse Oximetry 92 Oxygen Delivery Mechanical Ventilation Fraction of Inspired Oxygen 50 06/11/24 20:00 06/11/24 20:00 06/11/24 20:20 Temperature 38.7 C H Pulse Rate 101 H 98 Respiratory Rate 22 H Blood Pressure 117/71 Pulse Oximetry 92 94 Oxygen Delivery Mechanical Ventilation Fraction of Inspired Oxygen 50 50 06/11/24 20:20 06/11/24 20:31 06/11/24 20:31 Temperature Pulse Rate 98 96 96 Respiratory Rate 22 H 20 20 Blood Pressure Pulse Oximetry Oxygen Delivery Fraction of Inspired Oxygen 06/11/24 20:55 06/11/24 21:20 06/11/24 21:20 Temperature Pulse Rate 86 91 89 Respiratory Rate 22 H Blood Pressure Pulse Oximetry Oxygen Delivery Fraction of Inspired Oxygen 06/11/24 22:00 06/11/24 22:00 06/11/24 22:00 Temperature 38.4 C H Pulse Rate 81 81 81 Respiratory Rate 22 H 22 H Blood Pressure 101/60 Pulse Oximetry 92 Oxygen Delivery Fraction of Inspired Oxygen 06/11/24 22:00 06/11/24 22:52 06/12/24 00:00 Temperature 38.4 C H Pulse Rate 81 79 90 Respiratory Rate 22 H 22 H Blood Pressure 111/58 L Pulse Oximetry 93 91 Oxygen Delivery Mechanical Ventilation Fraction of Inspired Oxygen 50 06/12/24 00:00 06/12/24 00:00 06/12/24 00:00 Temperature Pulse Rate 90 90 Respiratory Rate 22 H 22 H Blood Pressure Pulse Oximetry Oxygen Delivery Fraction of Inspired Oxygen 50 06/12/24 00:00 06/12/24 00:00 06/12/24 01:32 Temperature Pulse Rate 84 84 115 H Respiratory Rate 22 H 24 H Blood Pressure Pulse Oximetry 92 Oxygen Delivery Mechanical Ventilation Fraction of Inspired Oxygen 50 06/12/24 01:32 06/12/24 01:47 06/12/24 02:00 Temperature Pulse Rate 115 H 108 H 99 Respiratory Rate 24 H 23 H 22 H Blood Pressure Pulse Oximetry Oxygen Delivery Fraction of Inspired Oxygen 06/12/24 02:00 06/12/24 02:00 06/12/24 02:00 Temperature 38.7 C H Pulse Rate 101 H 129 H 101 H Respiratory Rate 23 H 23 H Blood Pressure 117/67 Pulse Oximetry 91 Oxygen Delivery Fraction of Inspired Oxygen 06/12/24 02:00 06/12/24 02:04 06/12/24 03:54 Temperature Pulse Rate 101 H 102 H 132 H Respiratory Rate 23 H 30 H Blood Pressure Pulse Oximetry 93 Oxygen Delivery Mechanical Ventilation Fraction of Inspired Oxygen 70 06/12/24 03:54 06/12/24 03:55 06/12/24 04:00 Temperature Pulse Rate 132 H 132 H 132 H Respiratory Rate 30 H 30 H 30 H Blood Pressure Pulse Oximetry 90 Oxygen Delivery Mechanical Ventilation Fraction of Inspired Oxygen 80 06/12/24 04:00 06/12/24 04:00 06/12/24 04:00 Temperature 39.1 C H Pulse Rate 120 H 120 H Respiratory Rate 31 H Blood Pressure 132/90 Pulse Oximetry 88 L Oxygen Delivery Fraction of Inspired Oxygen 80 06/12/24 04:30 06/12/24 04:39 06/12/24 05:30 Temperature 39.2 C H 39.2 C H Pulse Rate 136 H Respiratory Rate Blood Pressure Pulse Oximetry 90 Oxygen Delivery Mechanical Ventilation Fraction of Inspired Oxygen 80 06/12/24 05:36 06/12/24 05:36 06/12/24 06:00 Temperature Pulse Rate 132 H 132 H 118 H Respiratory Rate 24 H 24 H 24 H Blood Pressure Pulse Oximetry Oxygen Delivery Fraction of Inspired Oxygen 06/12/24 06:00 06/12/24 06:00 06/12/24 06:00 Temperature 39.2 C H Pulse Rate 118 H 123 H 123 H Respiratory Rate 24 H 24 H Blood Pressure 131/61 Pulse Oximetry 90 Oxygen Delivery Fraction of Inspired Oxygen 06/12/24 06:09 06/12/24 06:19 06/12/24 07:52 Temperature Pulse Rate 128 H 123 H 109 H Respiratory Rate 22 H Blood Pressure Pulse Oximetry 91 Oxygen Delivery Mechanical Ventilation Fraction of Inspired Oxygen 100 06/12/24 07:58 06/12/24 08:00 06/12/24 08:00 Temperature Pulse Rate 116 H 116 H 116 H Respiratory Rate 24 H 24 H Blood Pressure Pulse Oximetry 88 L Oxygen Delivery Mechanical Ventilation Fraction of Inspired Oxygen 100 06/12/24 08:00 06/12/24 08:00 06/12/24 08:00 Temperature 38.8 C H Pulse Rate 114 H 116 H Respiratory Rate 24 H Blood Pressure 93/53 L Pulse Oximetry 86 L Oxygen Delivery Mechanical Ventilation Fraction of Inspired Oxygen 100 06/12/24 08:00 06/12/24 08:08 06/12/24 08:53 Temperature Pulse Rate 115 H 125 H Respiratory Rate 25 H Blood Pressure Pulse Oximetry Oxygen Delivery Fraction of Inspired Oxygen 100 06/12/24 10:00 06/12/24 10:00 06/12/24 10:00 Temperature Pulse Rate 114 H 114 H 114 H Respiratory Rate 24 H 24 H Blood Pressure Pulse Oximetry Oxygen Delivery Fraction of Inspired Oxygen 06/12/24 10:00 06/12/24 10:25 06/12/24 10:29 Temperature 38.0 C H Pulse Rate 114 H 149 H 103 H Respiratory Rate 24 H 24 H Blood Pressure 85/46 L Pulse Oximetry 100 Oxygen Delivery Fraction of Inspired Oxygen 06/12/24 10:45 06/12/24 10:45 06/12/24 10:52 Temperature Pulse Rate 103 H 103 H 102 H Respiratory Rate 24 H Blood Pressure 90/54 L 82/51 L Pulse Oximetry Oxygen Delivery Fraction of Inspired Oxygen 06/12/24 10:57 06/12/24 11:13 06/12/24 11:44 Temperature Pulse Rate 99 98 99 Respiratory Rate 24 H Blood Pressure 82/51 L 93/56 L Pulse Oximetry 100 Oxygen Delivery Mechanical Ventilation Fraction of Inspired Oxygen 100 06/12/24 12:00 06/12/24 12:00 06/12/24 12:00 Temperature 37.6 C H Pulse Rate 99 Respiratory Rate 24 H Blood Pressure 96/50 L Pulse Oximetry 100 Oxygen Delivery Mechanical Ventilation Fraction of Inspired Oxygen 80 80 06/12/24 12:00 06/12/24 13:24 06/12/24 13:28 Temperature Pulse Rate 99 95 95 Respiratory Rate 24 H Blood Pressure Pulse Oximetry 100 Oxygen Delivery Mechanical Ventilation Fraction of Inspired Oxygen 80 06/12/24 13:46 Temperature Pulse Rate 94 Respiratory Rate 24 H Blood Pressure Pulse Oximetry Oxygen Delivery Fraction of Inspired Oxygen Intake/Output Intake/Output: Intake & Output 06/09/24 06/10/24 06/11/24 06/12/24 23:59 23:59 23:59 23:59 Intake Total 2847.8 2281.5 3656.3 2501.2 Output Total 2725 1550 2350 910 Balance 122.8 731.5 1306.3 1591.2 Meds/Results Medications: Active Medications Generic Name Dose Route Start Last Admin Trade Name Freq PRN Reason Stop Dose Admin Acetaminophen 650 mg 06/03/24 13:56 06/12/24 04:30 Acetaminophen Elixir 325 Mg/10.15 Ml Udc FEED TUBE 650 mg Q4H PRN Administration Fever Albuterol/Ipratropium 3 ml 06/03/24 13:50 Ipratropium 0.5 Mg/Albuterol Sulfate 2.5 Mg Ampul.Neb 3 Ml INHALATION Q6HRT PRN Wheezng Albuterol/Ipratropium 3 ml 06/03/24 20:00 06/12/24 13:24 Ipratropium 0.5 Mg/Albuterol Sulfate 2.5 Mg Ampul.Neb 3 Ml INHALATION 3 ml Q6HRT ARABELLA Administration Amiodarone HCl 400 mg 06/06/24 09:40 06/12/24 08:53 Amiodarone Hcl 200 Mg Tablet PO 06/13/24 09:39 400 mg Q12HR ARABELLA Administration Amiodarone HCl 200 mg 06/14/24 08:00 Amiodarone Hcl 200 Mg Tablet PO DAILY@0800 ARABELLA Dextrose 12.5 gm 06/03/24 13:46 Dextrose 50% 25 Gm/50 Ml Syringe IV PUSH PRN PRN Hypoglycemia Protocol Enoxaparin Sodium 75 mg 06/10/24 23:00 06/12/24 10:48 Enoxaparin 80 Mg/0.8 Ml Syringe SUB-Q 75 mg Q12H ARABELLA Administration Glucagon 1 mg 06/03/24 13:46 Glucagon For Inj 1 Mg Vial IM PRN PRN Hypoglycemia Protocol Glucose 15 gm 06/03/24 13:46 Glucose Oral Gel 15 Gm Of Glucse In 37.5 Gm Tube PO PRN PRN Hypoglycemia Protocol Heparin Sodium (Porcine) 6,000 units 06/03/24 12:33 06/04/24 23:06 Heparin Sodium 5,000 Units/Ml Vial IV PUSH 6,000 units PRN PRN Administration aPTT less than 55 seconds Heparin Sodium (Porcine) 3,000 units 06/03/24 12:33 06/06/24 05:43 Heparin Sodium 5,000 Units/Ml Vial IV PUSH 3,000 units PRN PRN Administration aPTT 55 - 70 seconds Hydralazine HCl 10 mg 06/10/24 11:11 Hydralazine Hcl 20 Mg/Ml Vial IV PUSH Q4H PRN Blood Pressure - High Heparin Sodium/Dextrose 25,000 units in 250 mls @ 0 mls/hr 06/03/24 12:35 06/09/24 19:27 Heparin Sodium/D5w 100 Units/Ml IV CONT Infused .Q0M ARABELLA Titration Protocol Dextrose 1,000 mls @ 100 mls/hr 06/03/24 13:46 Dextrose 5% 1,000 Ml IVPB PRN PRN Hypoglycemia Protocol Fentanyl Citrate 2,500 mcg in 250 mls @ 20 mls/hr 06/03/24 13:50 06/12/24 10:00 Fentanyl 2,500 Mcg/Ns 250 Ml IV CONT 200 mcg/hr .[id number] ARABELLA 20 mls/hr Titration Protocol 200 MCG/HR Norepinephrine Bitartrate 8 mg in 250 mls @ 0 mls/hr 06/03/24 17:50 06/06/24 17:43 Levophed 8 Mg/D5w 250 Ml IV CONT Infused .Q0M ARABELLA Titration Protocol 0 MCG/MIN Cefepime HCl 2 gm in 50 mls @ 100 mls/hr 06/04/24 15:00 06/12/24 03:56 Maxipime 2 Gm/Ns 50 Ml IVPB Infused Q12H ARABELLA Infusion Micafungin Sodium 100 mg/ 100 mls @ 100 mls/hr 06/08/24 09:00 06/12/24 09:57 Sodium Chloride IVPB Infused DAILY ARABELLA Infusion Vancomycin HCl 1,250 mg in 250 mls @ 166.667 mls/hr 06/11/24 18:00 06/12/24 07:15 Vancomycin 1,250 Mg/Ns 250 Ml IVPB Infused Q12H ARABELLA Infusion Propofol 100 mls @ 20.493 mls/hr 06/11/24 17:45 06/12/24 10:45 Diprivan IV CONT 45 mcg/kg/min .Q4H53M ARABELLA 20.49 mls/hr Administration Protocol 45 MCG/KG/MIN Amiodarone HCl/Dextrose 360 mg in 200 mls @ 33.333 mls/hr 06/12/24 10:45 06/12/24 10:57 Nexterone 360 Mg/D5w 200 Ml IV CONT 06/12/24 16:44 1 mg/min .Q6H ONE 33.33 mls/hr Administration 1 MG/MIN Amiodarone HCl/Dextrose 360 mg in 200 mls @ 16.667 mls/hr 06/12/24 16:45 Nexterone 360 Mg/D5w 200 Ml IV CONT .Q12H ARABELLA 0.5 MG/MIN Norepinephrine Bitartrate 8 mg in 250 mls @ 9.375 mls/hr 06/12/24 10:30 06/12/24 10:52 Levophed 8 Mg/D5w 250 Ml IV CONT 5 mcg/min .Q24H ARABELLA 9.38 mls/hr Administration Protocol 5 MCG/MIN Cisatracurium Besylate 200 mg/ 100 mls @ 6.732 mls/hr 06/12/24 11:40 06/12/24 11:13 Sodium Chloride IV CONT 3 mcg/kg/min .[id number] ARABELLA 6.73 mls/hr Administration Protocol 3 MCG/KG/MIN Insulin Aspart 3 - 6 units 06/03/24 18:00 06/12/24 11:47 Insulin Aspart (*Bkc) 100 Units/Ml SUB-Q Not Given Q6HR [facility] Protocol Insulin Glargine 5 units 06/09/24 09:00 06/12/24 08:56 Insulin Glargine (*Bkc) 100 Units/Ml SUB-Q 5 units DAILY ARABELLA Administration Metoprolol Tartrate 50 mg 06/09/24 09:00 06/12/24 09:44 Metoprolol Tartrate 50 Mg Tab FEED TUBE Not Given Q12HR ARABELLA Midazolam HCl 2 mg 06/12/24 08:54 06/12/24 09:00 Midazolam Hcl (*Crx) 2 Mg/2 Ml Vial IV PUSH 2 mg Q1H PRN Administration Sedation Miscellaneous Information 0 each 06/08/24 00:01 06/12/24 00:19 Ivs In Normal Saline (If Possible) XX 07/08/24 00:00 1 each CLARIFY ARABELLA Administration Multi-Ingred Cream/Lotion/Oil/Oint 1 applic 06/03/24 14:00 06/12/24 08:57 Mineral Oil/White Petrolatum Ointment EACH EYE 1 applic Q12HR ARABELLA Administration Pantoprazole Sodium 40 mg 06/04/24 09:00 06/12/24 08:53 Pantoprazole Sodium Iv 40 Mg Vial IV PUSH 40 mg QAM ARABELLA Administration Polyethylene Glycol 17 gm 06/09/24 10:25 06/12/24 08:53 Polyethylene Glycol 3350 17 Gm Powd.Pack PO 17 gm QAM ARABELLA Administration Senna/Docusate Sodium 1 tab 06/11/24 21:00 06/11/24 21:20 Senna/Docusate Sodium Tablet PO 1 tab HS ARABELLA Administration Sodium Chloride 10 ml 06/03/24 22:00 06/12/24 05:37 Central Line Flush IV PUSH 10 ml Q8HR ARABELLA Administration Sodium Chloride 20 ml 06/03/24 19:36 06/11/24 04:53 Central Line Flush IV PUSH 20 ml PRN PRN Administration after blood draws Radiology Results: ITS Impressions Abdomen Ultrasound 06/05/24 08:52 IMPRESSION: 1. Small volume of ascites. Chest/Abdomen/Pelvis CT 06/11/24 09:34 IMPRESSION: CHEST: 1. Bilateral pneumonia with slight improvement in the upper lobes and worsening in the lower lobes. 2. Left chest tube with tiny apical pneumothorax. ABDOMEN/PELVIS: 1. No evidence of appendicitis, diverticulitis or intestinal obstruction. 2. Possible gallstones. 3. Retroperitoneal fat stranding which may be inflammatory. Clinical correlation and follow-up advised. 4. Thickened wall of the rectum. Clinical evaluation advised. Chest X-Ray 06/12/24 06:16 Impression: Extensive bilateral pulmonary consolidation is similar to prior exam, compatible with multifocal pneumonia. Probable small right pleural effusion. Support tubes, as above. Labs Labs: Laboratory Results - last 24 hr 06/11/24 06/11/24 06/11/24 14:38 18:02 21:00 WBC RBC Hgb Hct MCV MCH MCHC RDW Plt Count MPV Immature Gran % (Auto) Neut % (Auto) Lymph % (Auto) [place] % (Auto) Eos % (Auto) Baso % (Auto) Lymph # (Auto) [place] # (Auto) Eos # (Auto) Baso # (Auto) Abs Immat Gran (auto) Absolute Neuts (auto) Absolute Nucleated RBC Total Counted Neutrophils % (Manual) Band Neutrophils % Eosinophils % (Manual) Nucleated RBC % Abs Neuts (Manual) Absolute Eos (Manual) Platelet Estimate Schistocytes Puncture Site ABG pH ABG pCO2 ABG pO2 ABG PO2/FiO2 Ratio ABG HCO3 ABG O2 Saturation ABG O2 Content ABG Base Excess A-a Gradient Oxyhemoglobin Carboxyhemoglobin Methemoglobin Reduced Hemoglobin Total Hemoglobin O2 Delivery Device O2 Liters/Min Minute Volume Vent Rate Vent Mode FiO2 Tidal Volume PEEP Peak Inspir Pressure Pressure Support Sodium Potassium Chloride Carbon Dioxide Anion Gap BUN Creatinine Estim Creat Clear Calc Estimated GFR Glucose POC Capillary Glucose 110 H Calcium Phosphorus Magnesium Total Bilirubin AST ALT Alkaline Phosphatase Total Protein Albumin Triglycerides 236 H Vancomycin Trough 17.6 06/12/24 06/12/24 06/12/24 00:22 04:28 05:42 WBC RBC Hgb Hct MCV MCH MCHC RDW Plt Count MPV Immature Gran % (Auto) Neut % (Auto) Lymph % (Auto) [place] % (Auto) Eos % (Auto) Baso % (Auto) Lymph # (Auto) [place] # (Auto) Eos # (Auto) Baso # (Auto) Abs Immat Gran (auto) Absolute Neuts (auto) Absolute Nucleated RBC Total Counted Neutrophils % (Manual) Band Neutrophils % Eosinophils % (Manual) Nucleated RBC % Abs Neuts (Manual) Absolute Eos (Manual) Platelet Estimate Schistocytes Puncture Site Right radial ABG pH 7.270 L* ABG pCO2 67.2 H* ABG pO2 66.4 L ABG PO2/FiO2 Ratio 0.83 ABG HCO3 30.2 H ABG O2 Saturation 89.8 L ABG O2 Content 16.7 ABG Base Excess 1.5 A-a Gradient 433.4 Oxyhemoglobin 89.2 L Carboxyhemoglobin 0.4 Methemoglobin 0.3 Reduced Hemoglobin 10.1 H Total Hemoglobin 13.3 O2 Delivery Device Ventilator O2 Liters/Min Not Reportable Minute Volume Not Reportable Vent Rate 22 Vent Mode Cmv FiO2 80 Tidal Volume 450 PEEP 10 Peak Inspir Pressure Not Reportable Pressure Support Not Reportable Sodium Potassium Chloride Carbon Dioxide Anion Gap BUN Creatinine Estim Creat Clear Calc Estimated GFR Glucose POC Capillary Glucose 114 H 115 H Calcium Phosphorus Magnesium Total Bilirubin AST ALT Alkaline Phosphatase Total Protein Albumin Triglycerides Vancomycin Trough 06/12/24 06/12/24 06:24 11:37 WBC 41.3 H RBC 3.17 L Hgb 9.8 L Hct 32.1 L MCV 101.3 H MCH 30.9 MCHC 30.5 L RDW 14.7 H Plt Count 383 H MPV 9.4 Immature Gran % (Auto) Not Reportable Neut % (Auto) Not Reportable Lymph % (Auto) Not Reportable [place] % (Auto) Not Reportable Eos % (Auto) Not Reportable Baso % (Auto) Not Reportable Lymph # (Auto) Not Reportable [place] # (Auto) Not Reportable Eos # (Auto) Not Reportable Baso # (Auto) Not Reportable Abs Immat Gran (auto) Not Reportable Absolute Neuts (auto) Not Reportable Absolute Nucleated RBC Not Reportable Total Counted 100 Neutrophils % (Manual) 94 H Band Neutrophils % 2 Eosinophils % (Manual) 4 Nucleated RBC % Not Reportable Abs Neuts (Manual) 39.64 H Absolute Eos (Manual) 1.65 H Platelet Estimate Slightly increased Schistocytes None seen Puncture Site ABG pH ABG pCO2 ABG pO2 ABG PO2/FiO2 Ratio ABG HCO3 ABG O2 Saturation ABG O2 Content ABG Base Excess A-a Gradient Oxyhemoglobin Carboxyhemoglobin Methemoglobin Reduced Hemoglobin Total Hemoglobin O2 Delivery Device O2 Liters/Min Minute Volume Vent Rate Vent Mode FiO2 Tidal Volume PEEP Peak Inspir Pressure Pressure Support Sodium 151 H Potassium 4.8 Chloride 115 H Carbon Dioxide 33 H Anion Gap 3 L BUN 47 H Creatinine 1.23 Estim Creat Clear Calc 62 Estimated GFR > 60 Glucose 110 POC Capillary Glucose 127 H Calcium 7.7 L Phosphorus 5.7 H Magnesium 1.8 Total Bilirubin 0.6 AST 44 ALT 28 Alkaline Phosphatase 104 Total Protein 6.0 L Albumin 2.2 L Triglycerides Vancomycin Trough Quality VTE Prophylaxis VTE prophylaxis: pharmacologic ordered (currently on heparin drip)
[2024-06-12] MEDS: AMIODARONE 360 MG/D5W 200 ML 360 MG/200 ML BAG 16.67 MG IV CONT (16:17)
[2024-06-12 17:09] LABS: Glucose Point of Care 211 mg/dl (65-105)
[2024-06-12] MEDS: INSULIN ASPART (*BKC) 100 UNITS/ML SUB-Q (17:10)
[2024-06-12] MEDS: SENNA/DOCUSATE SODIUM TABLET 1 TAB PO (21:06)
[2024-06-13] VITALS (49 sets, daily range): BP systolic 92–141; BP diastolic 36–75; PULSE 67–115; RESP 24–26; TEMP 36.6–37.6; O2SAT 98–100
[2024-06-13] MEDS: PROPOFOL IV EMULSION 100 ML 20.49 MG IV CONT ×4 (00:01→13:43)
[2024-06-13 01:12] LABS: Glucose Point of Care 147 mg/dl (65-105)
[2024-06-13] MEDS: IPRATROPIUM 0.5 MG/ALBUTEROL SULFATE 2.5 MG AMPUL.NEB 3 ML INHALATION ×4 (02:21→20:08)
[2024-06-13] MEDS: AMIODARONE 360 MG/D5W 200 ML 360 MG/200 ML BAG 16.67 MG IV CONT (03:00)
[2024-06-13] MEDS: CEFEPIME 2 GM/NS 50 ML 2 GM/50 ML BAG IVPB ×2 (03:01→14:54)
[2024-06-13] MEDS: FENTANYL 2,500MCG/NS250ML(*CRX 2,500 MCG/250 ML BAG 20 MCG IV CONT ×2 (04:01→17:00)
[2024-06-13 04:57] LABS: Alveolar/Arterial O2 Gradient 131.5 mmHg; Base Excess ABG 0.3 mEq/l (+/-2.0); Carboxyhemoglobin 0.1 % THb (0-2.0); Fractional Inspired Oxygen 45 %; HCO3 ABG 28.8 mEq/l (22.0-26.0); Methemoglobin ABG 0.5 %THb (0-1.5); Oxygen Saturation ABG 97.4 % (95.0-100.0); Oxyhemoglobin 97.6 % THb (90.0-100.0); PO2 ABG 113.6 mmHg (80.0-100.0); PO2 FiO2 Ratio Arterial Blood 2.52 %; Reduced Hemoglobin 1.8 %THb (0-5.0); Total Hemoglobin 12.3 g/dL (12.0-18.0); pH ABG 7.254 (7.350-7.450)
[2024-06-13 04:58] LABS: Arterial Blood Gas PEEP 14 cmH2O; Arterial Blood Gas Tidal Volume 450 ml; Arterial Blood Gas Vent Mode CMV; Arterial Blood Gas Ventilator rate 24 /MIN; Device VENTILATOR; Modified Allen's Test Pass; PCO2 ABG 66.6 mmHg (35.0-45.0); Site Drawn RIGHT RADIAL
[2024-06-13] MEDS: VANCOMYCIN 1,250 MG/NS 250 ML 1,250 MG/250 ML BAG 166.67 MG IVPB (05:31)
[2024-06-13] MEDS: CENTRAL LINE FLUSH 10 ML IV PUSH ×3 (05:31→20:19)
[2024-06-13 05:36] LABS: Hematocrit 27.3 % (42.0-52.0); Hemoglobin 8.3 g/dL (14.0-18.0); Mean Corpuscular HGB Conc 30.4 g/dl (32-36); Mean Corpuscular Hemoglobin 30.9 pg (26-34); Mean Corpuscular Volume 101.5 fl (80-100); Mean Platelet Volume 9.6 fl (7.4-10.4); Platelet Count Result 346 k/mm3 (150-375); Red Blood Count 2.69 M/mm3 (4.6-6.20); Red Cell Distribution Width 15.2 % (11.5-14.5); White Blood Count 31.2 K/mm3 (4.5-10.0)
[2024-06-13 05:51] LABS: Alanine Aminotransferase 21 U/L (6-50); Albumin Level 2.3 g/dL (3.5-5.1); Alkaline Phosphatase 85 U/L (38-126); Anion Gap 9 mmol/L (4-12); Aspartate Amino Transferase 35 U/L (17-59); Bilirubin,Total 0.4 mg/dL (0.2-1.3); Blood Urea Nitrogen 75 mg/dL (9-20); Calcium 7.2 mg/dL (8.4-10.2); Carbon Dioxide 28 mmol/L (22-30); Chloride 110 mmol/L (98-107); Estimated CRCL calculation 33 ml/min; Estimated Glomerular Filt Rate 29; Glucose 152 mg/dL (65-110); Phosphorus 8.4 mg/dL (2.5-4.5); Potassium 5.4 mmol/L (3.4-5.0); Sodium 147 mmol/L (137-145); Triglycerides 156 mg/dL (<150)
[2024-06-13 05:58] LABS: Band Neutrophils Percent 2 % (0-6); Lymphocytes Absolute Manual 0.93 K/mm3 (1.1-4.5); Lymphocytes Percent Manual 3 % (18-44); Monocytes Absolute Manual 1.24 K/mm3 (0.1-0.90); Monocytes Percent Manual 4 % (3-9); Neutrophils Absolute Manual 29.01 K/mm3 (1.3-6.7); Neutrophils Percent Manual 91 % (46-73); Platelet Estimate Adequate (Adequate); Schistocytes None Seen; Total Cells Counted 100
[2024-06-13 05:59] LABS: Target Cells 1+
[2024-06-13] MEDS: NOREPINEPHRINE 8 MG/D5W 250 ML 8 MG/250 ML BAG 11.25 MG IV CONT (09:03)
[2024-06-13] MEDS: SODIUM BICARBONATE TAB 650 MG TABLET FEED TUBE ×2 (09:06→17:06)
[2024-06-13] MEDS: AMIODARONE HCL 200 MG TABLET 400 MG PO (09:06)
[2024-06-13] MEDS: polyethylene glycoL 3350 17 GM POWD.PACK PO (09:07)
[2024-06-13] MEDS: SODIUM ZIRCONIUM CYCLOSILICATE 10 GM POWD.PACK FEED TUBE ×2 (09:07→17:06)
[2024-06-13] MEDS: ENOXAPARIN 30 MG/0.3 ML SYRINGE SUB-Q (09:07)
[2024-06-13] MEDS: PANTOPRAZOLE SODIUM IV 40 MG VIAL IV PUSH (09:07)
[2024-06-13] MEDS: ALBUMIN HUMAN 5% 25 GM/500 ML BTL IV CONT (09:14)
--- NOTE | 2024-06-13 09:45 | P.PNINT_ITS ---
Progress Note: A&P Assessment and Plan (1) Acute respiratory failure: Code(s): J96.00 - Acute respiratory failure, unspecified whether with hypoxia or hypercapnia Status: Acute Assessment and Plan: Acute respiratory failure secondary to pneumonia -06/03: intubated in the ER -06/03: Patient was proned for approximately 20 hours -influenza A positive and likely secondary bacterial pneumococcal pneumonia -negative for COVID, RSV -urine Legionella negative -urine pneumococcal antigen positive -mycoplasma pneumonia none detected -continue bronchodilators -sedated with fentanyl, Versed. Off Nimbex since 06/06. 3/4 respiratory status has worsened again and patient was on 100% FiO2 and 10 of PEEP and satting in 80s. Repeat chest x-ray does not show any pneumothorax but shows show worsening of respiratory status -patient placed in prone position. Peep increased to 14. Paralyzed with rocuronium and Nimbex -Lasix IV 3/5 FiO2 does down to 45%. Peep is at 14. Will supine position for 8 hours. Continue sedation and neuromuscular laura. Hold Lasix due to worsening renal function 06/03/2024: CT chest, abdomen, pelvis IMPRESSION: Dense bilateral pulmonary infiltrates. Loculated dense effusion within the left upper lobe, similar to what one might see with an adjacent fracture. Although, significant respiratory artifact renders this evaluation limited. Perhaps once adequate resuscitation has been performed and lung findings are improving repeat imaging may be attempted with intravenous contrast, in order to evaluate for the presence or absence of acute traumatic injury. Hepatosplenomegaly. Free fluid within the deep pelvis, never a normal finding in a male patient. (2) Septic shock: Code(s): A41.9 - Sepsis, unspecified organism; R65.21 - Severe sepsis with septic shock Status: Acute Assessment and Plan: Secondary to pneumonia, UA was unremarkable -patient received adequate amount of IV fluids on admission -06/03: blood cultures growing -Streptococcus pneumonia 2/2 bottles -Completed a course of doxycycline (06/03) -06/06: vancomycin was discontent strep pneumo was pansensitive -continues to be on cefepime -off and on norepinephrine. -Continue to maintain MAP > 65 mm Hg or SBP > 100 mm Hg -off stress dose steroids (06/03) -06/06: Repeat blood cultures growing Shakira and Staph epidermidis in 1/2 bottles, could be contamination. Patient was started on micafungin and vancomycin 06/08 06/08 repeat blood cultures with no growth so far. 06/11: Patient febrile with increasing WBC. CT chest abdomen pelvis as under 06/11/2024 CT chest abdomen pelvis IMPRESSION: CHEST: 1. Bilateral pneumonia with slight improvement in the upper lobes and worsening in the lower lobes. 2. Left chest tube with tiny apical pneumothorax. ABDOMEN/PELVIS: 1. No evidence of appendicitis, diverticulitis or intestinal obstruction. 2. Possible gallstones. 3. Retroperitoneal fat stranding which may be inflammatory. Clinical correlation and follow-up advised. 4. Thickened wall of the rectum. Clinical evaluation advised. (3) Spontaneous pneumothorax: Code(s): J93.83 - Other pneumothorax Status: Acute Assessment and Plan: 06/08 late evening/night, patient was tachypneic, hypoxic, a tachycardic. Start chest x-ray showed large left-sided pneumothorax status post chest tube placed by ER physician -repeat chest x-ray with almost resolution of the left-sided pneumothorax with no air leak Monitor (4) Pneumonia: Code(s): J18.9 - Pneumonia, unspecified organism Status: Acute Assessment and Plan: See above (5) Hyponatremia: Code(s): E87.1 - Hypo-osmolality and hyponatremia Status: Acute Assessment and Plan: RESOLVED Hyponatremia with sodium levels of 117 on admission Etiology is not clear at this point in this could be secondary to excessive water intake. This could also be secondary to SIADH, congestive heart failure, SSRI, increased water intake -patient received adequate IV fluids -could will discontinue maintenance IV fluids, discussed with Nephrology -nephrology following the patient and appreciate the evaluation and recommendations -sodium levels have normalized continue to monitor Patient currently hypernatremic, continue increased free water flushes to 250 mL Nephrology following (6) SABA (acute kidney injury): Code(s): N17.9 - Acute kidney failure, unspecified Status: Acute Assessment and Plan: Baseline creatinine unknown Patient presented with SABA which initially improved but kidney function has now deteriorated again Will order albumin Nephrology follow 06/03: CTA chest abdomen pelvis did not show any hydronephrosis renal calculi Jimenez in place, urine output has been low Urine lytes reflective of prerenal picture, patient has had adequate IV fluids, now in ARDS, -continue to monitor urine output, electrolytes and renal function May need dialysis Lokelma and bicarb for potassium (7) Atrial fibrillation with RVR: Code(s): I48.91 - Unspecified atrial fibrillation Status: Acute Assessment and Plan: Status post DC cardioversion in ER. Initially patient was on on heparin infusion but now on Lovenox Cardiology consultation Patient was on amiodarone infusion and now on per tube amiodarone and metoprolol Episode of SVT which converted spontaneously Hold Lovenox due to worsening renal function and anticipate invasive procedure 06/05/2024: Echocardiogram Summary 1. Left ventricular chamber dimension is normal. 2. Left ventricular systolic function is moderately reduced, estimated at 30- 35%. 3. There is mildly increased left ventricular wall thickness. 4. The left ventricular diastolic function is grade I diastolic dysfunction. 5. Right ventricular systolic function is normal. 6. There is mild mitral valve regurgitation. 7. There is mild tricuspid valve regurgitation. 8. Estimated pulmonary arterial systolic pressure is 34 mmHg. (8) Elevated brain natriuretic peptide (BNP) level: Code(s): R79.89 - Other specified abnormal findings of blood chemistry Status: Acute Assessment and Plan: Patient has elevated BNP of 4190, although no evidence of volume overload from exam CT chest showed multifocal pneumonia Echocardiogram as above Off IV fluids (9) Hypertension: Code(s): I10 - Essential (primary) hypertension Status: Acute Assessment and Plan: Currently on Levophed (10) Influenza A: Code(s): J10.1 - Influenza due to other identified influenza virus with other respiratory manifestations Status: Acute Assessment and Plan: Patient was tested positive for influenza A, completed 10 days of Tamiflu (11) Schizophrenia: Code(s): F20.9 - Schizophrenia, unspecified Status: Acute Assessment and Plan: History of schizophrenia and other behavior issues Unknown if he takes any medications Plan DVT prophylaxis -Lovenox Stress ulcer prophylaxis -Protonix Nutrition: Resume tube feeds, continue MiraLax and senna S Code Status -DNR 06/13 I spoke to patient's father and patient's brother at bedside and updated them with patient's status including worsening of his respiratory status and kidney function. I updated them with current treatment plan and overall poor prognosis. I answered all their questions. I discussed goals of care and option of palliative extubation and comfort care. Total Critical Care Time - 40 minutes Due to a high probability of clinically significant, life threatening deterioration, the patient required my highest level of preparedness to intervene emergently and I personally spent this critical care time directly and personally managing the patient. This critical care time included obtaining a history; examining the patient; pulse oximetry; ordering and review of studies; arranging urgent treatment with development of a management plan; evaluation of patient's response to treatment; frequent reassessment; and discussions with other providers. It was exclusive of separately billable procedures and treating other patients and teaching time. Please see Assessment and Plan section and the rest of the note for further information on patient assessment and treatment This dictation may have been done utilizing a voice recognition system. Attempts have been made to correct errors. However, there may be uncorrected grammatical, spelling, and recognitions errors present. Subjective Date/time seen: 06/13/24 Overnight events reviewed. Afebrile Continues to be on mechanical ventilation in phone position. Patient on 14 of PEEP and 45% FiO2 Continues to be on Levophed Continues to be sedated with propofol and fentanyl and paralyzed with Nimbex Chest tube in place with no air leak Urine output poor Tube feeds on hold Interval history: Reason for consult: Acute respiratory failure, pneumonia, bacteremia, acute kidney injury, hyponatremia, AFib RVR status post DC cardioversion 06/03: Intubated 06/08: Spontaneous Pneumothorax status post small bore chest tube by ER physician 3/4 prone mechanical ventilation Review of Systems Review of Systems: ROS unobtainable: Yes unobtainable due to endotracheal tube, unobtainable due to medical condition and unobtainable due to mental status Exam Narrative: General: Intubated, sedated, in no acute distress HEENT: Pupils equal and reactive, sclera is clear Lungs/Chest: Coarse breath sounds bilaterally , decreased breath sounds at bases, otherwise adequate air entry, ETT in place, chest tube in place with no air leak Cardiac: Sinus rhythm, rate controlled with PVCs Circulation: Pedal pulses are intact and symmetrical. Abdomen: Soft, nontender, nondistended, hypoactive bowel sounds Extremities: 1+ edema bilateral lower extremities : Jimenez in place Neurologic: Intubated, sedated. Does not open his eyes or follow simple command Skin: No skin lesions or rash noted Objective Data Vital Signs Vital Signs: Vital Signs - 24 hr 06/12/24 10:06/12/24 10:00 06/12/24 10:00 Temperature Pulse Rate 114 H 114 H 114 H Respiratory Rate 24 H 24 H Blood Pressure Pulse Oximetry Oxygen Delivery Fraction of Inspired Oxygen 06/12/24 10:00 06/12/24 10:25 06/12/24 10:29 Temperature 38.0 C H Pulse Rate 114 H 149 H 103 H Respiratory Rate 24 H 24 H Blood Pressure 85/46 L Pulse Oximetry 100 Oxygen Delivery Fraction of Inspired Oxygen 06/12/24 10:45 06/12/24 10:45 06/12/24 10:52 Temperature Pulse Rate 103 H 103 H 102 H Respiratory Rate 24 H Blood Pressure 90/54 L 82/51 L Pulse Oximetry Oxygen Delivery Fraction of Inspired Oxygen 06/12/24 10:57 06/12/24 11:13 06/12/24 11:44 Temperature Pulse Rate 99 98 99 Respiratory Rate 24 H Blood Pressure 82/51 L 93/56 L Pulse Oximetry 100 Oxygen Delivery Mechanical Ventilation Fraction of Inspired Oxygen 100 06/12/24 12:00 06/12/24 12:00 06/12/24 12:00 Temperature 37.6 C H Pulse Rate 99 Respiratory Rate 24 H Blood Pressure 96/50 L Pulse Oximetry 100 Oxygen Delivery Mechanical Ventilation Fraction of Inspired Oxygen 80 80 06/12/24 12:00 06/12/24 12:00 06/12/24 12:00 Temperature Pulse Rate 99 99 99 Respiratory Rate 24 H 24 H Blood Pressure Pulse Oximetry Oxygen Delivery Fraction of Inspired Oxygen 06/12/24 12:00 06/12/24 12:00 06/12/24 13:24 Temperature Pulse Rate 99 99 95 Respiratory Rate 24 H 24 H Blood Pressure 96/50 L 96/50 L Pulse Oximetry Oxygen Delivery Fraction of Inspired Oxygen 06/12/24 13:28 06/12/24 13:46 06/12/24 14:00 Temperature Pulse Rate 95 94 92 Respiratory Rate 24 H 24 H Blood Pressure Pulse Oximetry 100 Oxygen Delivery Mechanical Ventilation Fraction of Inspired Oxygen 80 06/12/24 14:00 06/12/24 14:00 06/12/24 14:00 Temperature Pulse Rate 92 92 92 Respiratory Rate 24 H 24 H Blood Pressure 94/54 L 94/54 L Pulse Oximetry Oxygen Delivery Fraction of Inspired Oxygen 06/12/24 14:00 06/12/24 14:00 06/12/24 15:38 Temperature 37.0 C Pulse Rate 92 92 86 Respiratory Rate 24 H 24 H Blood Pressure 94/54 L Pulse Oximetry 100 Oxygen Delivery Fraction of Inspired Oxygen 06/12/24 16:00 06/12/24 16:00 06/12/24 16:00 Temperature Pulse Rate 86 86 86 Respiratory Rate 24 H 24 H Blood Pressure 98/49 L 98/49 L Pulse Oximetry Oxygen Delivery Fraction of Inspired Oxygen 06/12/24 16:00 06/12/24 16:00 06/12/24 16:00 Temperature 36.9 C Pulse Rate 86 86 Respiratory Rate 24 H Blood Pressure 98/49 L Pulse Oximetry 100 Oxygen Delivery Fraction of Inspired Oxygen 80 06/12/24 16:00 06/12/24 16:15 06/12/24 16:17 Temperature Pulse Rate 86 86 Respiratory Rate 24 H Blood Pressure 93/55 L Pulse Oximetry Oxygen Delivery Mechanical Ventilation Fraction of Inspired Oxygen 80 06/12/24 16:24 06/12/24 17:18 06/12/24 17:42 Temperature Pulse Rate 83 83 83 Respiratory Rate 24 H 24 H Blood Pressure Pulse Oximetry 98 Oxygen Delivery Mechanical Ventilation Fraction of Inspired Oxygen 60 06/12/24 18:00 06/12/24 18:00 06/12/24 18:00 Temperature 37.0 C Pulse Rate 85 85 85 Respiratory Rate 24 H 24 H Blood Pressure 100/51 L Pulse Oximetry 97 Oxygen Delivery Fraction of Inspired Oxygen 06/12/24 18:00 06/12/24 18:00 06/12/24 18:00 Temperature Pulse Rate 85 85 85 Respiratory Rate 24 H 24 H Blood Pressure 100/51 L 100/51 L Pulse Oximetry Oxygen Delivery Fraction of Inspired Oxygen 06/12/24 19:18 06/12/24 19:18 06/12/24 20:00 Temperature Pulse Rate 79 79 Respiratory Rate 24 H 24 H Blood Pressure Pulse Oximetry Oxygen Delivery Fraction of Inspired Oxygen 50 06/12/24 20:00 06/12/24 20:00 06/12/24 20:00 Temperature 36.9 C Pulse Rate 76 77 77 Respiratory Rate 24 H 24 H 24 H Blood Pressure 96/52 L Pulse Oximetry 97 97 Oxygen Delivery Mechanical Ventilation Fraction of Inspired Oxygen 50 06/12/24 20:00 06/12/24 20:00 06/12/24 20:00 Temperature Pulse Rate 77 77 77 Respiratory Rate 24 H 24 H Blood Pressure 96/52 L 96/52 L Pulse Oximetry Oxygen Delivery Fraction of Inspired Oxygen 06/12/24 20:00 06/12/24 20:00 06/12/24 20:29 Temperature Pulse Rate 77 78 77 Respiratory Rate Blood Pressure 96/52 L Pulse Oximetry 98 Oxygen Delivery Mechanical Ventilation Fraction of Inspired Oxygen 45 06/12/24 20:29 06/12/24 20:40 06/12/24 21:00 Temperature Pulse Rate 77 90 76 Respiratory Rate 24 H 24 H Blood Pressure 90/49 L Pulse Oximetry Oxygen Delivery Fraction of Inspired Oxygen 06/12/24 21:00 06/12/24 21:05 06/12/24 22:00 Temperature 36.9 C Pulse Rate 76 76 88 Respiratory Rate 24 H 24 H Blood Pressure 90/49 L Pulse Oximetry 97 Oxygen Delivery Fraction of Inspired Oxygen 06/12/24 22:00 06/12/24 22:00 06/12/24 22:00 Temperature Pulse Rate 88 88 88 Respiratory Rate 24 H 24 H Blood Pressure 117/56 L 117/56 L Pulse Oximetry Oxygen Delivery Fraction of Inspired Oxygen 06/12/24 22:00 06/12/24 22:00 06/12/24 22:00 Temperature 36.9 C Pulse Rate 88 80 88 Respiratory Rate 24 H Blood Pressure 117/56 L 117/56 L Pulse Oximetry 97 Oxygen Delivery Fraction of Inspired Oxygen 06/12/24 23:21 06/12/24 23:22 06/12/24 23:23 Temperature Pulse Rate 77 77 Respiratory Rate 24 H Blood Pressure Pulse Oximetry 98 96 Oxygen Delivery Mechanical Ventilation Mechanical Ventilation Fraction of Inspired Oxygen 45 60 45 06/12/24 23:31 06/12/24 23:31 06/13/24 00:00 Temperature 37.1 C Pulse Rate 77 77 85 Respiratory Rate 24 H 24 H 24 H Blood Pressure 106/49 L 106/49 L 118/59 L Pulse Oximetry 99 Oxygen Delivery Fraction of Inspired Oxygen 06/13/24 00:00 06/13/24 00:00 06/13/24 00:01 Temperature Pulse Rate 85 78 89 Respiratory Rate 24 H Blood Pressure 118/59 L Pulse Oximetry Oxygen Delivery Fraction of Inspired Oxygen 06/13/24 00:01 06/13/24 00:01 06/13/24 00:01 Temperature Pulse Rate 85 88 85 Respiratory Rate 24 H 24 H Blood Pressure 118/59 L Pulse Oximetry Oxygen Delivery Fraction of Inspired Oxygen 06/13/24 00:01 06/13/24 02:00 06/13/24 02:00 Temperature 36.9 C Pulse Rate 85 77 74 Respiratory Rate 24 H 24 H Blood Pressure 118/59 L 106/64 Pulse Oximetry 99 Oxygen Delivery Fraction of Inspired Oxygen 06/13/24 02:00 06/13/24 02:00 06/13/24 02:00 Temperature Pulse Rate 88 88 76 Respiratory Rate 24 H 24 H Blood Pressure 117/58 L Pulse Oximetry Oxygen Delivery Fraction of Inspired Oxygen 06/13/24 02:00 06/13/24 02:27 06/13/24 02:27 Temperature Pulse Rate 76 78 78 Respiratory Rate 24 H 24 H Blood Pressure 117/58 L Pulse Oximetry 99 Oxygen Delivery Mechanical Ventilation Fraction of Inspired Oxygen 45 06/13/24 02:40 06/13/24 03:00 06/13/24 03:00 Temperature Pulse Rate 80 75 89 Respiratory Rate 24 H Blood Pressure 108/63 108/63 Pulse Oximetry Oxygen Delivery Fraction of Inspired Oxygen 06/13/24 04:00 06/13/24 04:00 06/13/24 04:00 Temperature Pulse Rate 88 87 Respiratory Rate 24 H 24 H Blood Pressure Pulse Oximetry Oxygen Delivery Fraction of Inspired Oxygen 45 06/13/24 04:00 06/13/24 04:00 06/13/24 04:00 Temperature 36.8 C Pulse Rate 87 86 85 Respiratory Rate 24 H 24 H Blood Pressure 117/60 117/60 Pulse Oximetry 99 99 Oxygen Delivery Mechanical Ventilation Fraction of Inspired Oxygen 45 06/13/24 04:00 06/13/24 04:00 06/13/24 04:00 Temperature Pulse Rate 85 85 88 Respiratory Rate 24 H Blood Pressure 117/59 L 117/60 Pulse Oximetry Oxygen Delivery Fraction of Inspired Oxygen 06/13/24 04:01 06/13/24 04:01 06/13/24 04:47 Temperature Pulse Rate 88 87 81 Respiratory Rate 24 H 24 H Blood Pressure Pulse Oximetry 99 Oxygen Delivery Mechanical Ventilation Fraction of Inspired Oxygen 45 06/13/24 06:00 06/13/24 06:00 06/13/24 06:00 Temperature 36.8 C Pulse Rate 81 80 92 Respiratory Rate 24 H 24 H Blood Pressure 107/66 Pulse Oximetry 98 Oxygen Delivery Fraction of Inspired Oxygen 06/13/24 06:00 06/13/24 06:00 06/13/24 06:00 Temperature Pulse Rate 92 82 80 Respiratory Rate 24 H 24 H Blood Pressure 116/61 116/61 Pulse Oximetry Oxygen Delivery Fraction of Inspired Oxygen 06/13/24 06:16 06/13/24 08:00 06/13/24 08:00 Temperature 36.8 C Pulse Rate 82 82 82 Respiratory Rate 24 H Blood Pressure 116/61 119/60 119/60 Pulse Oximetry 98 Oxygen Delivery Fraction of Inspired Oxygen 06/13/24 08:00 06/13/24 08:00 06/13/24 08:00 Temperature Pulse Rate 82 82 82 Respiratory Rate 24 H 24 H 24 H Blood Pressure 119/60 Pulse Oximetry Oxygen Delivery Fraction of Inspired Oxygen 06/13/24 08:03 06/13/24 08:08 06/13/24 08:53 Temperature Pulse Rate 111 H 92 85 Respiratory Rate 24 H 24 H Blood Pressure Pulse Oximetry 98 Oxygen Delivery Mechanical Ventilation Fraction of Inspired Oxygen 45 06/13/24 09:00 06/13/24 09:03 06/13/24 09:03 Temperature Pulse Rate 85 85 85 Respiratory Rate 24 H Blood Pressure 107/48 L 107/48 L Pulse Oximetry Oxygen Delivery Fraction of Inspired Oxygen 06/13/24 09:06 Temperature Pulse Rate 85 Respiratory Rate Blood Pressure Pulse Oximetry Oxygen Delivery Fraction of Inspired Oxygen Intake/Output Intake/Output: Intake & Output 06/10/24 06/11/24 06/12/24 06/13/24 23:59 23:59 23:59 23:59 Intake Total 2281.5 3656.3 4055.8 1787.7 Output Total 1550 2350 1210 130 Balance 731.5 1306.3 2845.8 1657.7 Meds/Results Medications: Active Medications Generic Name Dose Route Start Last Admin Trade Name Freq PRN Reason Stop Dose Admin Acetaminophen 650 mg 06/03/24 13:56 06/12/24 04:30 Acetaminophen Elixir 325 Mg/10.15 Ml Udc FEED TUBE 650 mg Q4H PRN Administration Fever Albuterol/Ipratropium 3 ml 06/03/24 13:50 Ipratropium 0.5 Mg/Albuterol Sulfate 2.5 Mg Ampul.Neb 3 Ml INHALATION Q6HRT PRN Wheezng Albuterol/Ipratropium 3 ml 06/03/24 20:00 06/13/24 08:03 Ipratropium 0.5 Mg/Albuterol Sulfate 2.5 Mg Ampul.Neb 3 Ml INHALATION 3 ml Q6HRT ARABELLA Administration Amiodarone HCl 200 mg 06/14/24 08:00 Amiodarone Hcl 200 Mg Tablet PO DAILY@0800 ARABELLA Dextrose 12.5 gm 06/03/24 13:46 Dextrose 50% 25 Gm/50 Ml Syringe IV PUSH PRN PRN Hypoglycemia Protocol Enoxaparin Sodium 30 mg 06/13/24 09:00 06/13/24 09:07 Enoxaparin 30 Mg/0.3 Ml Syringe SUB-Q 30 mg QAM ARABELLA Administration Glucagon 1 mg 06/03/24 13:46 Glucagon For Inj 1 Mg Vial IM PRN PRN Hypoglycemia Protocol Glucose 15 gm 06/03/24 13:46 Glucose Oral Gel 15 Gm Of Glucse In 37.5 Gm Tube PO PRN PRN Hypoglycemia Protocol Heparin Sodium (Porcine) 6,000 units 06/03/24 12:33 06/04/24 23:06 Heparin Sodium 5,000 Units/Ml Vial IV PUSH 6,000 units PRN PRN Administration aPTT less than 55 seconds Heparin Sodium (Porcine) 3,000 units 06/03/24 12:33 06/06/24 05:43 Heparin Sodium 5,000 Units/Ml Vial IV PUSH 3,000 units PRN PRN Administration aPTT 55 - 70 seconds Hydralazine HCl 10 mg 06/10/24 11:11 Hydralazine Hcl 20 Mg/Ml Vial IV PUSH Q4H PRN Blood Pressure - High Heparin Sodium/Dextrose 25,000 units in 250 mls @ 0 mls/hr 06/03/24 12:35 06/09/24 19:27 Heparin Sodium/D5w 100 Units/Ml IV CONT Infused .Q0M ARABELLA Titration Protocol Dextrose 1,000 mls @ 100 mls/hr 06/03/24 13:46 Dextrose 5% 1,000 Ml IVPB PRN PRN Hypoglycemia Protocol Fentanyl Citrate 2,500 mcg in 250 mls @ 20 mls/hr 06/03/24 13:50 06/13/24 08:00 Fentanyl 2,500 Mcg/Ns 250 Ml IV CONT 200 mcg/hr .[id number] ARABELLA 20 mls/hr Titration Protocol 200 MCG/HR Cefepime HCl 2 gm in 50 mls @ 100 mls/hr 06/04/24 15:00 06/13/24 03:31 Maxipime 2 Gm/Ns 50 Ml IVPB Infused Q12H ARABELLA Infusion Micafungin Sodium 100 mg/ 100 mls @ 100 mls/hr 06/08/24 09:00 06/12/24 09:57 Sodium Chloride IVPB Infused DAILY ARABELLA Infusion Vancomycin HCl 1,250 mg in 250 mls @ 166.667 mls/hr 06/11/24 18:00 06/13/24 07:00 Vancomycin 1,250 Mg/Ns 250 Ml IVPB Infused Q12H ARABELLA Infusion Propofol 100 mls @ 20.493 mls/hr 06/11/24 17:45 06/13/24 09:00 Diprivan IV CONT 45 mcg/kg/min .Q4H53M ARABELLA 20.49 mls/hr Administration Protocol 45 MCG/KG/MIN Norepinephrine Bitartrate 8 mg in 250 mls @ 9.375 mls/hr 06/12/24 10:30 06/13/24 09:03 Levophed 8 Mg/D5w 250 Ml IV CONT 6 mcg/min .Q24H ARABELLA 11.25 mls/hr Administration Protocol 5 MCG/MIN Cisatracurium Besylate 200 mg/ 100 mls @ 6.732 mls/hr 06/12/24 11:40 06/13/24 08:00 Sodium Chloride IV CONT 3 mcg/kg/min .[id number] ARABELLA 6.73 mls/hr Titration Protocol 3 MCG/KG/MIN Albumin Human 25 gm in 500 mls @ 125 mls/hr 06/13/24 07:50 06/13/24 09:14 Albumin Human 5% IV CONT 06/13/24 11:49 125 mls/hr .Q4H ONE Administration Albumin Human 100 mls @ 60 mls/hr 06/13/24 18:00 Albutein IVPB 06/14/24 13:39 Q6HR [facility] Insulin Aspart 3 - 6 units 06/03/24 18:00 06/13/24 06:14 Insulin Aspart (*Bkc) 100 Units/Ml SUB-Q Not Given Q6HR [facility] Protocol Insulin Glargine 5 units 06/09/24 09:00 06/12/24 08:56 Insulin Glargine (*Bkc) 100 Units/Ml SUB-Q 5 units DAILY ARABELLA Administration Metoprolol Tartrate 50 mg 06/09/24 09:00 06/12/24 21:05 Metoprolol Tartrate 50 Mg Tab FEED TUBE Not Given Q12HR ARABELLA Midazolam HCl 2 mg 06/12/24 08:54 06/12/24 09:00 Midazolam Hcl (*Crx) 2 Mg/2 Ml Vial IV PUSH 2 mg Q1H PRN Administration Sedation Miscellaneous Information 0 each 06/08/24 00:01 06/13/24 08:49 Ivs In Normal Saline (If Possible) XX 07/08/24 00:00 Not Given CLARIFY ARABELLA Multi-Ingred Cream/Lotion/Oil/Oint 1 applic 06/03/24 14:00 06/12/24 21:05 Mineral Oil/White Petrolatum Ointment EACH EYE 1 applic Q12HR ARABELLA Administration Pantoprazole Sodium 40 mg 06/04/24 09:00 06/13/24 09:07 Pantoprazole Sodium Iv 40 Mg Vial IV PUSH 40 mg QAM ARABELLA Administration Polyethylene Glycol 17 gm 06/09/24 10:25 06/13/24 09:07 Polyethylene Glycol 3350 17 Gm Powd.Pack PO 17 gm QAM ARABELLA Administration Senna/Docusate Sodium 1 tab 06/11/24 21:00 06/12/24 21:06 Senna/Docusate Sodium Tablet PO 1 tab HS ARABELLA Administration Sodium Bicarbonate 650 mg 06/13/24 09:00 06/13/24 09:06 Sodium Bicarbonate Tab 650 Mg Tablet FEED TUBE 650 mg BID ARABELLA Administration Sodium Chloride 10 ml 06/03/24 22:00 06/13/24 05:31 Central Line Flush IV PUSH 10 ml Q8HR ARABELLA Administration Sodium Chloride 20 ml 06/03/24 19:36 06/11/24 04:53 Central Line Flush IV PUSH 20 ml PRN PRN Administration after blood draws Sodium Zirconium Cyclosilicate 10 gm 06/13/24 10:00 06/13/24 09:07 Sodium Zirconium Cyclosilicate 10 Gm Powd.Pack FEED TUBE 10 gm BID@1000,1800 ARABELLA Administration Radiology Results: ITS Impressions Abdomen Ultrasound 06/05/24 08:52 IMPRESSION: 1. Small volume of ascites. Chest/Abdomen/Pelvis CT 06/11/24 09:34 IMPRESSION: CHEST: 1. Bilateral pneumonia with slight improvement in the upper lobes and worsening in the lower lobes. 2. Left chest tube with tiny apical pneumothorax. ABDOMEN/PELVIS: 1. No evidence of appendicitis, diverticulitis or intestinal obstruction. 2. Possible gallstones. 3. Retroperitoneal fat stranding which may be inflammatory. Clinical correlation and follow-up advised. 4. Thickened wall of the rectum. Clinical evaluation advised. Chest X-Ray 06/12/24 06:16 Impression: Extensive bilateral pulmonary consolidation is similar to prior exam, compatible with multifocal pneumonia. Probable small right pleural effusion. Support tubes, as above. Labs Labs: Laboratory Results - last 24 hr 06/12/24 06/12/24 06/13/24 11:37 17:07 01:10 WBC RBC Hgb Hct MCV MCH MCHC RDW Plt Count MPV Immature Gran % (Auto) Neut % (Auto) Lymph % (Auto) Mcleod % (Auto) Eos % (Auto) Baso % (Auto) Lymph # (Auto) Mcleod # (Auto) Eos # (Auto) Baso # (Auto) Abs Immat Gran (auto) Absolute Neuts (auto) Absolute Nucleated RBC Total Counted Neutrophils % (Manual) Band Neutrophils % Lymphocytes % (Manual) Monocytes % (Manual) Nucleated RBC % Abs Neuts (Manual) Abs Lymphs (Manual) Abs Monocytes (Manual) Platelet Estimate Target Cells Schistocytes Puncture Site ABG pH ABG pCO2 ABG pO2 ABG PO2/FiO2 Ratio ABG HCO3 ABG O2 Saturation ABG O2 Content ABG Base Excess A-a Gradient Oxyhemoglobin Carboxyhemoglobin Methemoglobin Reduced Hemoglobin Total Hemoglobin O2 Delivery Device O2 Liters/Min Minute Volume Vent Rate Vent Mode FiO2 Tidal Volume PEEP Peak Inspir Pressure Pressure Support Sodium Potassium Chloride Carbon Dioxide Anion Gap BUN Creatinine Estim Creat Clear Calc Estimated GFR Glucose POC Capillary Glucose 127 H 211 H 147 H Calcium Phosphorus Magnesium Total Bilirubin AST ALT Alkaline Phosphatase Total Protein Albumin Triglycerides 06/13/24 06/13/24 04:39 05:28 WBC 31.2 H RBC 2.69 L Hgb 8.3 L Hct 27.3 L MCV 101.5 H MCH 30.9 MCHC 30.4 L RDW 15.2 H Plt Count 346 MPV 9.6 Immature Gran % (Auto) Not Reportable Neut % (Auto) Not Reportable Lymph % (Auto) Not Reportable Mcleod % (Auto) Not Reportable Eos % (Auto) Not Reportable Baso % (Auto) Not Reportable Lymph # (Auto) Not Reportable Mcleod # (Auto) Not Reportable Eos # (Auto) Not Reportable Baso # (Auto) Not Reportable Abs Immat Gran (auto) Not Reportable Absolute Neuts (auto) Not Reportable Absolute Nucleated RBC Not Reportable Total Counted 100 Neutrophils % (Manual) 91 H Band Neutrophils % 2 Lymphocytes % (Manual) 3 L Monocytes % (Manual) 4 Nucleated RBC % Not Reportable Abs Neuts (Manual) 29.01 H Abs Lymphs (Manual) 0.93 L Abs Monocytes (Manual) 1.24 H Platelet Estimate Adequate Target Cells 1+ Schistocytes None seen Puncture Site Right radial ABG pH 7.254 L* ABG pCO2 66.6 H* ABG pO2 113.6 H ABG PO2/FiO2 Ratio 2.52 ABG HCO3 28.8 H ABG O2 Saturation 97.4 ABG O2 Content 17.0 ABG Base Excess 0.3 A-a Gradient 131.5 Oxyhemoglobin 97.6 Carboxyhemoglobin 0.1 Methemoglobin 0.5 Reduced Hemoglobin 1.8 Total Hemoglobin 12.3 O2 Delivery Device Ventilator O2 Liters/Min Not Reportable Minute Volume Not Reportable Vent Rate 24 Vent Mode Cmv FiO2 45 Tidal Volume 450 PEEP 14 Peak Inspir Pressure Not Reportable Pressure Support Not Reportable Sodium 147 H Potassium 5.4 H Chloride 110 H Carbon Dioxide 28 Anion Gap 9 BUN 75 H D Creatinine 2.39 H Estim Creat Clear Calc 33 Estimated GFR 29 L Glucose 152 H POC Capillary Glucose Calcium 7.2 L Phosphorus 8.4 H Magnesium 2.0 Total Bilirubin 0.4 AST 35 ALT 21 Alkaline Phosphatase 85 Total Protein 5.0 L Albumin 2.3 L Triglycerides 156 H Quality VTE Prophylaxis VTE prophylaxis: pharmacologic ordered (currently on heparin drip)
--- NOTE | 2024-06-13 10:30 | PCFNICU ---
ICU Rounding Note: Pt current nutrition is Vital 1.2 ON HOLD. Nutrition recommendation: Restart tube feeding when able : Nepro @ 20 ml/h with eventual goal of 35 ml/h until propofol is titrated down. Last recorded weight is 83.7 kg. Bowel Motility: No bowel movements. Need bowel regimen Labs Reviewed: Hgb 8.3, Hct 27.3, Alb 2.3, Na 147, K+ 5.4, BUN 75, Cre 2.39, Glu 152 Meds Noted: Fentanyl, Versed, levophed @ 6 mcg, novolog, lantus, protonix, propofol @ 20.55=846 kcal. Skin: WNL Additional Notes: Tube feeding was put on hold because pt was proned. To restart today switching to Nepro because of kidney function. Because of high dose of propofol, goal rate is 35 ml/h to titrate up if propofol is able to titrate down. Nepro @ 35 provides 1386 kcal, 62 g protein, 560 total free water. Following daily in ICU rounds. Will monitor weight, labs, skin, diet orders, meds every Tuesday and Tuesday. .
[2024-06-13] MEDS: MICAFUNGIN SODIUM 100 MG in SODIUM CHLORIDE 0.9% IV 100 ML IVPB (10:41)
[2024-06-13] MEDS: INSULIN GLARGINE (*BKC) 100 UNITS/ML SUB-Q (10:41)
[2024-06-13] MEDS: MINERAL OIL/WHITE PETROLATUM OINTMENT 1 APPLIC EACH EYE ×2 (10:47→20:19)
[2024-06-13 11:28] LABS: Glucose Point of Care 118 mg/dl (65-105)
--- NOTE | 2024-06-13 12:34 | P.PNNP_ITS ---
Progress Note: A&P Assessment and Plan (1) SABA (acute kidney injury): Code(s): N17.9 - Acute kidney failure, unspecified Status: Acute Assessment and Plan: * had initially resolved (as noted by labs from 06/08 - 06/12) * recurrence noted on AM labs (06/13) * associated with elevated K+ as well * suspect multifactorial etiology: * prerenal factors/hypovolemia * infection/sepsis * hemodynamic instability * hypoxia * contrast (CTA on 06/11) * concurrent IV diuretic use * recheck urine studies, CPK, and renal ultrasound * remains at risk for [facility]/dialysis * follow repeat labs and UOP (2) Septic shock: Code(s): A41.9 - Sepsis, unspecified organism; R65.21 - Severe sepsis with septic shock Status: Acute Assessment and Plan: * requiring vasopressor therapy to maintain MAP * thought to be secondary to pneumonia +/- influenza * culture data noted: * blood cultures (06/03) with Streptococcus pneumonia (2/2 bottles) * blood cultures (06/06) with Shakira and Staph epidermidis (1/2 bottles) * blood cultures (06/08) with no growth to date * on antibiotics and antifungal therapy * follow trend of hemodynamics (3) Acute respiratory failure with hypoxia: Code(s): J96.01 - Acute respiratory failure with hypoxia Status: Acute Assessment and Plan: * thought to be secondary to pneumonia +/- influenza * intubated in the ER due to worsening hypoxia and tachypnea (impending respiratory failure) * prone positioning to assist with oxygenation as needed * viral testing negative for RSV and COVID * requiring sedation along with paralytics for ventilator synchrony * worsening respiratory status noted on 06/12 * continue supportive therapy (4) Multifocal pneumonia: Code(s): J18.9 - Pneumonia, unspecified organism Status: Acute Assessment and Plan: * as noted by admission/recent imaging * continue therapy as outlined (5) Hypernatremia: Code(s): E87.0 - Hyperosmolality and hypernatremia Status: Acute Assessment and Plan: * initially hyponatremic on admission (which resolved) * then developed hypernatremia (on 06/10) * free water tube flushes being titrated * follow trend of sodium (6) Hyponatremia: Code(s): E87.1 - Hypo-osmolality and hyponatremia Status: Acute Assessment and Plan: * RESOLVED * outpatient labs reviewed: * sodium 137mmol/L on 12/26/23 * sodium 140mmol/L on 10/19/22 * admission sodium 117mmol/L * etiology not entirely clear: * volume depletion? * excess free water intake? * possible medications? * secondary to acute/chronic lung disease (known smoker x 25 years) * influenza * pneumonia * evaluation to date noted: * TSH okay * cortisol elevated (but was on steroids during testing) * SPEP/UPEP without paraproteinemia * serum osmo 266, urine osmo 387 * overcorrection (on 06/06 - 06/07) -- s/p D5W fluids and DDAVP to slow this down * this was achieved with ongoing appropriate correction * follow trend of serial sodium levels (7) Spontaneous pneumothorax: Code(s): J93.83 - Other pneumothorax Status: Acute Assessment and Plan: * as noted by CXR on 06/08 evening * s/p chest tube placement by ER physician * continue to monitor (8) Atrial fibrillation with rapid ventricular response: Code(s): I48.91 - Unspecified atrial fibrillation Status: Acute Assessment and Plan: * failed rate control measures with IV metoprolol and cardizem * s/p DC cardioversion with return with brief return to NSR * on oral amiodarone and heparin gtt * Echo results noted (06/05): * left ventricular systolic function is moderately reduced, estimated at 30- 35% * left ventricular diastolic function is grade I diastolic dysfunction * mild mitral valve regurgitation * mild tricuspid valve regurgitation * estimated pulmonary arterial systolic pressure is 34 mmHg * Cardiology recommendations noted (9) Influenza A: Code(s): J10.1 - Influenza due to other identified influenza virus with other respiratory manifestations Status: Acute Assessment and Plan: * positive testing in ER * completed course of Tamiflu (10) Schizophrenia: Code(s): F20.9 - Schizophrenia, unspecified Status: Acute Assessment and Plan: * known history * unclear what medication he was taking... Will continue to follow. L Subjective Date/time seen: 06/13/24 12:34 Interval history: Follow-up for recurrent of acute kidney injury/acute renal failure. Noted events since I last saw him after renal function and sodium normalized -- respiratory status remains tenuous and continues to require sedation/paralysis in conjunction with mechanical ventilation; spontaneous pneumothorac s/p chest tube placement on 06/08; requiring on/off prone positioning due to hypoxia; on vasopressor therapy to maintain blood pressure/MAP; unfortunately, renal function has deteriorated once again with noted drop in urine output as well; issues with hypernatremia noted (was previously hyponatremic) also. Exam 2 Narrative: General: middle aged male intubated/sedated/paralyzed and on mechanical ventilation Heart:IRRR normal S1 and S2; no rub Lungs: coarse breath sounds with scattered rales Abdomen: soft, nontender, nondistended, decreased bowel sounds Extremities: no cyanosis or clubbing; no edema Skin: no rash Objective Data Vital Signs Vital Signs: Vital Signs Temp Pulse Resp BP Pulse Ox O2 Del Method FiO2 06/13/24 12:34 82 111/50 L 06/13/24 12:00 89 24 H 06/13/24 12:00 89 24 H 121/54 L 06/13/24 12:00 89 24 H 06/13/24 12:00 97.9 F 89 24 H 121/54 L 99 06/13/24 11:15 92 123/54 L 06/13/24 10:45 88 133/62 06/13/24 10:20 89 100 Mechanical Ventilation 45 06/13/24 10:00 76 110/50 L 06/13/24 10:00 76 24 H 06/13/24 10:00 76 24 H 110/50 L 06/13/24 10:00 76 24 H 06/13/24 10:00 98.1 F 76 24 H 110/50 L 100 06/13/24 09:06 85 06/13/24 09:03 85 107/48 L 06/13/24 09:03 85 107/48 L 06/13/24 09:00 85 24 H 06/13/24 08:53 85 24 H 06/13/24 08:08 92 98 Mechanical Ventilation 45 06/13/24 08:03 111 H 24 H 06/13/24 08:00 82 24 H 119/60 06/13/24 08:00 82 24 H 06/13/24 08:00 82 24 H 06/13/24 08:00 82 119/60 06/13/24 08:00 98.3 F 82 24 H 119/60 98 06/13/24 06:16 82 116/61 06/13/24 06:00 80 24 H 116/61 06/13/24 06:00 82 116/61 06/13/24 06:00 92 24 H 06/13/24 06:00 92 24 H 06/13/24 06:00 98.2 F 80 24 H 107/66 98 06/13/24 06:00 81 06/13/24 04:47 81 99 Mechanical Ventilation 45 06/13/24 04:01 87 24 H 06/13/24 04:01 88 24 H 06/13/24 04:00 88 06/13/24 04:00 85 24 H 117/60 06/13/24 04:00 85 117/59 L 06/13/24 04:00 85 117/60 06/13/24 04:00 86 24 H 99 Mechanical Ventilation 45 06/13/24 04:00 98.3 F 87 24 H 117/60 99 06/13/24 04:00 45 06/13/24 04:00 87 24 H 06/13/24 04:00 88 24 H 06/13/24 03:00 89 108/63 06/13/24 03:00 75 108/63 06/13/24 02:40 80 24 H 06/13/24 02:27 78 24 H 06/13/24 02:27 78 99 Mechanical Ventilation 45 06/13/24 02:00 76 24 H 117/58 L 06/13/24 02:00 76 117/58 L 06/13/24 02:00 88 24 H 06/13/24 02:00 88 24 H 06/13/24 02:00 98.5 F 74 24 H 106/64 99 06/13/24 02:00 77 06/13/24 00:01 85 24 H 118/59 L 06/13/24 00:01 85 118/59 L 06/13/24 00:01 88 24 H 06/13/24 00:01 85 24 H 06/13/24 00:01 89 24 H 06/13/24 00:00 78 06/13/24 00:00 85 118/59 L 06/13/24 00:00 98.8 F 85 24 H 118/59 L 99 06/12/24 23:31 77 24 H 106/49 L 06/12/24 23:31 77 24 H 106/49 L 06/12/24 23:23 77 24 H 96 Mechanical Ventilation 45 06/12/24 23:22 60 06/12/24 23:21 77 98 Mechanical Ventilation 45 06/12/24 22:00 98.4 F 88 24 H 117/56 L 97 06/12/24 22:00 80 06/12/24 22:00 88 117/56 L 06/12/24 22:00 88 117/56 L 06/12/24 22:00 88 24 H 06/12/24 22:00 88 24 H 117/56 L 06/12/24 22:00 88 24 H 06/12/24 21:05 76 06/12/24 21:00 98.5 F 76 24 H 90/49 L 97 06/12/24 21:00 76 90/49 L 06/12/24 20:40 90 24 H 06/12/24 20:29 77 24 H 06/12/24 20:29 77 98 Mechanical Ventilation 45 06/12/24 20:00 78 06/12/24 20:00 77 96/52 L 06/12/24 20:00 77 96/52 L 06/12/24 20:00 77 24 H 06/12/24 20:00 77 24 H 96/52 L 06/12/24 20:00 77 24 H 06/12/24 20:00 98.5 F 77 24 H 96/52 L 97 06/12/24 20:00 76 24 H 97 Mechanical Ventilation 50 06/12/24 20:00 50 06/12/24 19:18 79 24 H 06/12/24 19:18 79 24 H 06/12/24 18:00 85 100/51 L 06/12/24 18:00 85 24 H 100/51 L 06/12/24 18:00 85 24 H 06/12/24 18:00 85 24 H 06/12/24 18:00 98.6 F 85 24 H 100/51 L 97 06/12/24 18:00 85 06/12/24 17:42 83 98 Mechanical Ventilation 60 06/12/24 17:18 83 24 H 06/12/24 16:24 83 24 H 06/12/24 16:17 86 93/55 L 06/12/24 16:15 86 24 H 06/12/24 16:00 Mechanical Ventilation 80 06/12/24 16:00 80 06/12/24 16:00 98.5 F 86 24 H 98/49 L 100 06/12/24 16:00 86 06/12/24 16:00 86 98/49 L 06/12/24 16:00 86 24 H 98/49 L 06/12/24 16:00 86 24 H 06/12/24 15:38 86 24 H Intake/Output Intake/Output: Intake & Output 06/10/24 06/11/24 06/12/24 06/13/24 23:59 23:59 23:59 23:59 Intake Total 2281.5 3656.3 4055.8 2137.1 Output Total 1550 2350 1210 130 Balance 731.5 1306.3 2845.8 2007.1 Meds/Results Medications: Active Medications Generic Name Dose Route Start Last Admin Trade Name Freq PRN Reason Stop Dose Admin Acetaminophen 650 mg 06/03/24 13:56 06/12/24 04:30 Acetaminophen Elixir 325 Mg/10.15 Ml Udc FEED TUBE 650 mg Q4H PRN Administration Fever Albuterol/Ipratropium 3 ml 06/03/24 13:50 Ipratropium 0.5 Mg/Albuterol Sulfate 2.5 Mg Ampul.Neb 3 Ml INHALATION Q6HRT PRN Wheezng Albuterol/Ipratropium 3 ml 06/03/24 20:00 06/13/24 13:47 Ipratropium 0.5 Mg/Albuterol Sulfate 2.5 Mg Ampul.Neb 3 Ml INHALATION 3 ml Q6HRT ARABELLA Administration Amiodarone HCl 200 mg 06/14/24 08:00 Amiodarone Hcl 200 Mg Tablet PO DAILY@0800 ARABELLA Dextrose 12.5 gm 06/03/24 13:46 Dextrose 50% 25 Gm/50 Ml Syringe IV PUSH PRN PRN Hypoglycemia Protocol Enoxaparin Sodium 30 mg 06/13/24 09:00 06/13/24 09:07 Enoxaparin 30 Mg/0.3 Ml Syringe SUB-Q 30 mg QAM ARABELLA Administration Glucagon 1 mg 06/03/24 13:46 Glucagon For Inj 1 Mg Vial IM PRN PRN Hypoglycemia Protocol Glucose 15 gm 06/03/24 13:46 Glucose Oral Gel 15 Gm Of Glucse In 37.5 Gm Tube PO PRN PRN Hypoglycemia Protocol Heparin Sodium (Porcine) 6,000 units 06/03/24 12:33 06/04/24 23:06 Heparin Sodium 5,000 Units/Ml Vial IV PUSH 6,000 units PRN PRN Administration aPTT less than 55 seconds Heparin Sodium (Porcine) 3,000 units 06/03/24 12:33 06/06/24 05:43 Heparin Sodium 5,000 Units/Ml Vial IV PUSH 3,000 units PRN PRN Administration aPTT 55 - 70 seconds Hydralazine HCl 10 mg 06/10/24 11:11 Hydralazine Hcl 20 Mg/Ml Vial IV PUSH Q4H PRN Blood Pressure - High Heparin Sodium/Dextrose 25,000 units in 250 mls @ 0 mls/hr 06/03/24 12:35 06/09/24 19:27 Heparin Sodium/D5w 100 Units/Ml IV CONT Infused .Q0M ARABELLA Titration Protocol Dextrose 1,000 mls @ 100 mls/hr 06/03/24 13:46 Dextrose 5% 1,000 Ml IVPB PRN PRN Hypoglycemia Protocol Fentanyl Citrate 2,500 mcg in 250 mls @ 20 mls/hr 06/03/24 13:50 06/13/24 12:00 Fentanyl 2,500 Mcg/Ns 250 Ml IV CONT 200 mcg/hr .[id number] ARABELLA 20 mls/hr Titration Protocol 200 MCG/HR Cefepime HCl 2 gm in 50 mls @ 100 mls/hr 06/04/24 15:00 06/13/24 14:54 Maxipime 2 Gm/Ns 50 Ml IVPB 100 mls/hr Q12H ARABELLA Administration Micafungin Sodium 100 mg/ 100 mls @ 100 mls/hr 06/08/24 09:00 06/13/24 11:45 Sodium Chloride IVPB Infused DAILY ARABELLA Infusion Vancomycin HCl 1,250 mg in 250 mls @ 166.667 mls/hr 06/11/24 18:00 06/13/24 07:00 Vancomycin 1,250 Mg/Ns 250 Ml IVPB Infused Q12H ARABELLA Infusion Propofol 100 mls @ 20.493 mls/hr 06/11/24 17:45 06/13/24 13:43 Diprivan IV CONT 45 mcg/kg/min .Q4H53M ARABELLA 20.49 mls/hr Administration Protocol 45 MCG/KG/MIN Norepinephrine Bitartrate 8 mg in 250 mls @ 3.75 mls/hr 06/12/24 10:30 06/13/24 12:45 Levophed 8 Mg/D5w 250 Ml IV CONT 2 mcg/min .Q24H ARABELLA 3.75 mls/hr Titration Protocol 2 MCG/MIN Cisatracurium Besylate 200 mg/ 100 mls @ 7.854 mls/hr 06/12/24 11:40 06/13/24 13:44 Sodium Chloride IV CONT 3.5 mcg/kg/min .[id number] ARABELLA 7.85 mls/hr Administration Protocol 3.5 MCG/KG/MIN Albumin Human 100 mls @ 60 mls/hr 06/13/24 18:00 Albutein IVPB 06/14/24 13:39 Q6HR [facility] Insulin Aspart 3 - 6 units 06/03/24 18:00 06/13/24 11:39 Insulin Aspart (*Bkc) 100 Units/Ml SUB-Q Not Given Q6HR [facility] Protocol Insulin Glargine 5 units 06/09/24 09:00 06/13/24 10:41 Insulin Glargine (*Bkc) 100 Units/Ml SUB-Q 5 units DAILY ARABELLA Administration Metoprolol Tartrate 50 mg 06/09/24 09:00 06/12/24 21:05 Metoprolol Tartrate 50 Mg Tab FEED TUBE Not Given Q12HR [facility] Midazolam HCl 2 mg 06/12/24 08:54 06/12/24 09:00 Midazolam Hcl (*Crx) 2 Mg/2 Ml Vial IV PUSH 2 mg Q1H PRN Administration Sedation Multi-Ingred Cream/Lotion/Oil/Oint 1 applic 06/03/24 14:00 06/13/24 10:47 Mineral Oil/White Petrolatum Ointment EACH EYE 1 applic Q12HR ARABELLA Administration Pantoprazole Sodium 40 mg 06/04/24 09:00 06/13/24 09:07 Pantoprazole Sodium Iv 40 Mg Vial IV PUSH 40 mg QAM ARABELLA Administration Polyethylene Glycol 17 gm 06/09/24 10:25 06/13/24 09:07 Polyethylene Glycol 3350 17 Gm Powd.Pack PO 17 gm QAM ARABELLA Administration Senna/Docusate Sodium 1 tab 06/11/24 21:00 06/12/24 21:06 Senna/Docusate Sodium Tablet PO 1 tab HS ARABELLA Administration Sodium Bicarbonate 650 mg 06/13/24 09:00 06/13/24 09:06 Sodium Bicarbonate Tab 650 Mg Tablet FEED TUBE 650 mg BID ARABELLA Administration Sodium Chloride 10 ml 06/03/24 22:00 06/13/24 13:45 Central Line Flush IV PUSH 10 ml Q8HR ARABELLA Administration Sodium Chloride 20 ml 06/03/24 19:36 06/11/24 04:53 Central Line Flush IV PUSH 20 ml PRN PRN Administration after blood draws Sodium Zirconium Cyclosilicate 10 gm 06/13/24 10:00 06/13/24 09:07 Sodium Zirconium Cyclosilicate 10 Gm Powd.Pack FEED TUBE 10 gm BID@1000,1800 ARABELLA Administration Radiology Results: ITS Impressions Abdomen Ultrasound 06/05/24 08:52 IMPRESSION: 1. Small volume of ascites. Chest/Abdomen/Pelvis CT 06/11/24 09:34 IMPRESSION: CHEST: 1. Bilateral pneumonia with slight improvement in the upper lobes and worsening in the lower lobes. 2. Left chest tube with tiny apical pneumothorax. ABDOMEN/PELVIS: 1. No evidence of appendicitis, diverticulitis or intestinal obstruction. 2. Possible gallstones. 3. Retroperitoneal fat stranding which may be inflammatory. Clinical correlation and follow-up advised. 4. Thickened wall of the rectum. Clinical evaluation advised. Chest X-Ray 06/13/24 13:55 IMPRESSION: 1. Airspace opacities in the mid and lower lung zones, right worse than left with mild improvement on the left, consistent with pneumonia. 2. No pneumothorax. Left-sided chest tube in expected position. Labs Labs: Laboratory Tests 06/13/24 05:28 06/13/24 05:28 Calcium 7.2 L Phosphorus 8.4 H Magnesium 2.0 Total Bilirubin 0.4 AST 35 ALT 21 Alkaline Phosphatase 85 Total Protein 5.0 L Albumin 2.3 L Triglycerides 156 H
[2024-06-13] MEDS: CISATRACURIUM BESYLATE 200 MG in SODIUM CHLORIDE 0.9% IV 80 ML 7.85 ML IV CONT (13:44)
[2024-06-13] MEDS: ALBUMIN HUMAN 25% 25 GM/100 ML 100 ML IVPB ×2 (17:06→23:49)
[2024-06-13 17:48] LABS: Creatinine Urine 52.4 mg/dL; Sodium Urine Random 87 meq/L; Total Protein Urine Random 44 mg/dL; Ur Ttl Prot Creatinine Ratio 0.84 mg/mg (0-0.20); Urea Random Urine 85 MG/DL
[2024-06-13 18:00] LABS: Glucose Point of Care 68 mg/dl (65-105)
[2024-06-13 18:00] LABS: Glucose Point of Care 66 mg/dl (65-105)
[2024-06-13 18:02] LABS: Eosinophil Urine None Seen % (None Seen); Urine Eos QC 2nd Tech Confirmed; Vancomycin Trough 44.9 ug/mL (10.0-20.0)
[2024-06-13] MEDS: PROPOFOL IV EMULSION 100 ML 22.77 MG IV CONT ×2 (18:03→21:55)
[2024-06-13] MEDS: DEXTROSE 50% 25 GM/50 ML SYRINGE IV PUSH ×2 (18:03→23:49)
[2024-06-13 18:37] LABS: Glucose Point of Care 118 mg/dl (65-105)
[2024-06-13] MEDS: MIDAZOLAM HCL (*CRX) 2 MG/2 ML VIAL 4 MG IV PUSH (18:49)
[2024-06-13] MEDS: SENNA/DOCUSATE SODIUM TABLET 1 TAB PO (20:19)
[2024-06-14] VITALS (36 sets, daily range): BP systolic 108–184; BP diastolic 46–101; PULSE 69–132; RESP 9–30; TEMP 35.9–37.3; O2SAT 93–100
[2024-06-14 00:16] LABS: Glucose Point of Care 133 mg/dl (65-105)
[2024-06-14 00:16] LABS: Glucose Point of Care 64 mg/dl (65-105)
[2024-06-14] MEDS: CISATRACURIUM BESYLATE 200 MG in SODIUM CHLORIDE 0.9% IV 80 ML 10.1 ML IV CONT (01:03)
[2024-06-14] MEDS: PROPOFOL IV EMULSION 100 ML 22.77 MG IV CONT ×6 (02:00→23:56)
[2024-06-14] MEDS: IPRATROPIUM 0.5 MG/ALBUTEROL SULFATE 2.5 MG AMPUL.NEB 3 ML INHALATION ×2 (02:02→19:55)
[2024-06-14] MEDS: CEFEPIME 2 GM/NS 50 ML 2 GM/50 ML BAG IVPB (02:07)
[2024-06-14 05:21] LABS: Alveolar/Arterial O2 Gradient 153.5 mmHg; Base Excess ABG -3.5 mEq/l (+/-2.0); Carboxyhemoglobin 0.4 % THb (0-2.0); Fractional Inspired Oxygen 40 %; HCO3 ABG 22.2 mEq/l (22.0-26.0); Methemoglobin ABG 0.4 %THb (0-1.5); Oxygen Content ABG 10.5 %vol (16.0-22.0); Oxygen Saturation ABG 95.3 % (95.0-100.0); Oxyhemoglobin 94.6 % THb (90.0-100.0); PCO2 ABG 43.4 mmHg (35.0-45.0); PO2 ABG 81.8 mmHg (80.0-100.0); PO2 FiO2 Ratio Arterial Blood 2.05 %; Reduced Hemoglobin 4.6 %THb (0-5.0); pH ABG 7.327 (7.350-7.450)
[2024-06-14 05:22] LABS: Arterial Blood Gas PEEP 14 cmH2O; Arterial Blood Gas Vent Mode CMV; Arterial Blood Gas Ventilator rate 24 /MIN; Device VENTILATOR; Modified Allen's Test Unable to perform; Site Drawn RIGHT RADIAL; Total Hemoglobin 7.8 g/dL (12.0-18.0)
[2024-06-14 05:23] LABS: Arterial Blood Gas Tidal Volume 450 ml
[2024-06-14] MEDS: ALBUMIN HUMAN 25% 25 GM/100 ML 100 ML IVPB ×2 (05:26→13:42)
[2024-06-14] MEDS: FENTANYL 2,500MCG/NS250ML(*CRX 2,500 MCG/250 ML BAG 20 MCG IV CONT ×2 (05:29→19:00)
[2024-06-14] MEDS: CENTRAL LINE FLUSH 10 ML IV PUSH ×3 (05:33→20:38)
[2024-06-14 06:05] LABS: Hematocrit 23.2 % (42.0-52.0); Hemoglobin 7.3 g/dL (14.0-18.0); Mean Corpuscular HGB Conc 31.5 g/dl (32-36); Mean Corpuscular Hemoglobin 30.4 pg (26-34); Mean Corpuscular Volume 96.7 fl (80-100); Mean Platelet Volume 9.7 fl (7.4-10.4); Platelet Count Result 306 k/mm3 (150-375); Red Cell Distribution Width 15.1 % (11.5-14.5); White Blood Count 17.8 K/mm3 (4.5-10.0)
[2024-06-14 06:15] LABS: Alanine Aminotransferase 19 U/L (6-50); Albumin Level 2.7 g/dL (3.5-5.1); Alkaline Phosphatase 96 U/L (38-126); Anion Gap 14 mmol/L (4-12); Aspartate Amino Transferase 41 U/L (17-59); Bilirubin,Total 0.6 mg/dL (0.2-1.3); Blood Urea Nitrogen 85 mg/dL (9-20); Calcium 7.5 mg/dL (8.4-10.2); Carbon Dioxide 23 mmol/L (22-30); Chloride 108 mmol/L (98-107); Creatine Kinase 396 U/L (55-170); Estimated CRCL calculation 26 ml/min; Estimated Glomerular Filt Rate 22; Glucose 96 mg/dL (65-110); Potassium 4.8 mmol/L (3.4-5.0); Sodium 145 mmol/L (137-145)
[2024-06-14 06:34] LABS: Total Cells Counted 100
[2024-06-14 06:35] LABS: Band Neutrophils Percent 4 % (0-6); Eosinophils Absolute Manual 0.17 K/mm3 (0.02-0.50); Lymphocytes Absolute Manual 0.35 K/mm3 (1.1-4.5); Lymphocytes Percent Manual 2 % (18-44); Monocytes Absolute Manual 0.17 K/mm3 (0.1-0.90); Monocytes Percent Manual 1 % (3-9); Neutrophils Absolute Manual 17.26 K/mm3 (1.3-6.7); Neutrophils Percent Manual 93 % (46-73)
[2024-06-14 06:36] LABS: Platelet Estimate Adequate (Adequate); Schistocytes None Seen
--- NOTE | 2024-06-14 06:58 | PC.NURSE ---
Notified Lauryn at [facility] of father's plan to withdraw later this morning.
[2024-06-14 07:05] LABS: Hepatitis B Surface Antigen Negative (Negative)
[2024-06-14 07:57] LABS: Glucose Point of Care 80 mg/dl (65-105)
[2024-06-14] MEDS: polyethylene glycoL 3350 17 GM POWD.PACK PO (08:16)
[2024-06-14] MEDS: PANTOPRAZOLE SODIUM IV 40 MG VIAL IV PUSH (08:16)
[2024-06-14] MEDS: MINERAL OIL/WHITE PETROLATUM OINTMENT 1 APPLIC EACH EYE ×2 (08:16→20:37)
[2024-06-14] MEDS: SODIUM BICARBONATE TAB 650 MG TABLET FEED TUBE ×2 (08:16→17:06)
[2024-06-14] MEDS: AMIODARONE HCL 200 MG TABLET PO (08:16)
[2024-06-14] MEDS: MICAFUNGIN SODIUM 100 MG in SODIUM CHLORIDE 0.9% IV 100 ML IVPB (08:17)
[2024-06-14] MEDS: ENOXAPARIN 30 MG/0.3 ML SYRINGE SUB-Q (08:18)
--- NOTE | 2024-06-14 09:42 | P.PNINT_ITS ---
Progress Note: A&P Assessment and Plan (1) Acute respiratory failure: Code(s): J96.00 - Acute respiratory failure, unspecified whether with hypoxia or hypercapnia Status: Acute Assessment and Plan: Acute respiratory failure secondary to pneumonia -06/03: intubated in the ER -06/03: Patient was proned for approximately 20 hours -influenza A positive and likely secondary bacterial pneumococcal pneumonia -negative for COVID, RSV -urine Legionella negative -urine pneumococcal antigen positive -mycoplasma pneumonia none detected -continue bronchodilators -sedated with fentanyl, Versed. Off Nimbex since 06/06. 3/ respiratory status has worsened again and patient was on 100% FiO2 and 10 of PEEP and satting in 80s. Repeat chest x-ray does not show any pneumothorax but shows show worsening of respiratory status -patient placed in prone position. Peep increased to 14. Paralyzed with rocuronium and Nimbex -Lasix IV 3/ FiO2 does down to 45%. Peep is at 14. Will supine position for 8 hours. Continue sedation and neuromuscular laura. Hold Lasix due to worsening renal function 06/14 patient was placed in poor position overnight. He is currently paralyzed with Nimbex. He is currently on 14 of PEEP and 50% FiO2. Rate is 24. ABG and chest x-ray reviewed. I will place him supine position today. Will decrease PEEP to 12. Increased rate to 26. 06/03/2024: CT chest, abdomen, pelvis IMPRESSION: Dense bilateral pulmonary infiltrates. Loculated dense effusion within the left upper lobe, similar to what one might see with an adjacent fracture. Although, significant respiratory artifact renders this evaluation limited. Perhaps once adequate resuscitation has been performed and lung findings are improving repeat imaging may be attempted with intravenous contrast, in order to evaluate for the presence or absence of acute traumatic injury. Hepatosplenomegaly. Free fluid within the deep pelvis, never a normal finding in a male patient. (2) Septic shock: Code(s): A41.9 - Sepsis, unspecified organism; R65.21 - Severe sepsis with septic shock Status: Acute Assessment and Plan: Secondary to pneumonia, UA was unremarkable -patient received adequate amount of IV fluids on admission -06/03: blood cultures growing -Streptococcus pneumonia 2/2 bottles -Completed a course of doxycycline (06/03) -06/06: vancomycin was discontent strep pneumo was pansensitive -continues to be on cefepime -off and on norepinephrine. -Continue to maintain MAP > 65 mm Hg or SBP > 100 mm Hg -off stress dose steroids (06/03) -06/06: Repeat blood cultures growing Shakira and Staph epidermidis in 1/2 bottles, could be contamination. Patient was started on micafungin and vancomycin 06/08 06/08 repeat blood cultures with no growth so far. 06/11: Patient febrile with increasing WBC. CT chest abdomen pelvis as under 06/11/2024 CT chest abdomen pelvis IMPRESSION: CHEST: 1. Bilateral pneumonia with slight improvement in the upper lobes and worsening in the lower lobes. 2. Left chest tube with tiny apical pneumothorax. ABDOMEN/PELVIS: 1. No evidence of appendicitis, diverticulitis or intestinal obstruction. 2. Possible gallstones. 3. Retroperitoneal fat stranding which may be inflammatory. Clinical correlation and follow-up advised. 4. Thickened wall of the rectum. Clinical evaluation advised. (3) Spontaneous pneumothorax: Code(s): J93.83 - Other pneumothorax Status: Acute Assessment and Plan: 06/08 late evening/night, patient was tachypneic, hypoxic, a tachycardic. Start chest x-ray showed large left-sided pneumothorax status post chest tube placed by ER physician -repeat chest x-ray with almost resolution of the left-sided pneumothorax with no air leak Monitor (4) Pneumonia: Code(s): J18.9 - Pneumonia, unspecified organism Status: Acute Assessment and Plan: See above (5) Hyponatremia: Code(s): E87.1 - Hypo-osmolality and hyponatremia Status: Acute Assessment and Plan: RESOLVED Hyponatremia with sodium levels of 117 on admission Etiology is not clear at this point in this could be secondary to excessive water intake. This could also be secondary to SIADH, congestive heart failure, SSRI, increased water intake -patient received adequate IV fluids -could will discontinue maintenance IV fluids, discussed with Nephrology -nephrology following the patient and appreciate the evaluation and recommendations -sodium levels have normalized continue to monitor Patient currently hypernatremic, continue increased free water flushes to 250 mL Nephrology following (6) SABA (acute kidney injury): Code(s): N17.9 - Acute kidney failure, unspecified Status: Acute Assessment and Plan: Baseline creatinine unknown Patient presented with SABA which initially improved but kidney function has now deteriorated again Will order albumin Nephrology follow 06/03: CTA chest abdomen pelvis did not show any hydronephrosis renal calculi Jimenez in place, urine output has been low Urine lytes reflective of prerenal picture, patient has had adequate IV fluids, now in ARDS, -continue to monitor urine output, electrolytes and renal function May need dialysis Lokelma and bicarb for potassium (7) Atrial fibrillation with RVR: Code(s): I48.91 - Unspecified atrial fibrillation Status: Acute Assessment and Plan: Status post DC cardioversion in ER. Initially patient was on on heparin infusion but now on Lovenox Cardiology consultation Patient was on amiodarone infusion and now on per tube amiodarone and metoprolol Episode of SVT which converted spontaneously Hold Lovenox due to worsening renal function and anticipate invasive procedure 06/05/2024: Echocardiogram Summary 1. Left ventricular chamber dimension is normal. 2. Left ventricular systolic function is moderately reduced, estimated at 30- 35%. 3. There is mildly increased left ventricular wall thickness. 4. The left ventricular diastolic function is grade I diastolic dysfunction. 5. Right ventricular systolic function is normal. 6. There is mild mitral valve regurgitation. 7. There is mild tricuspid valve regurgitation. 8. Estimated pulmonary arterial systolic pressure is 34 mmHg. (8) Elevated brain natriuretic peptide (BNP) level: Code(s): R79.89 - Other specified abnormal findings of blood chemistry Status: Acute Assessment and Plan: Patient has elevated BNP of 4190, although no evidence of volume overload on exam at the time of presentation CT chest showed multifocal pneumonia Echocardiogram as above Off IV fluids (9) Influenza A: Code(s): J10.1 - Influenza due to other identified influenza virus with other respiratory manifestations Status: Acute Assessment and Plan: Patient was tested positive for influenza A, completed 10 days of Tamiflu (10) Schizophrenia: Code(s): F20.9 - Schizophrenia, unspecified Status: Acute Assessment and Plan: History of schizophrenia and other behavior issues Unknown if he takes any medications Plan DVT prophylaxis -Lovenox Stress ulcer prophylaxis -Protonix Nutrition: Continue tube feeds, continue MiraLax and senna S Code Status -DNR 06/13 I met with patient's father and brother today at bedside. I reviewed overnight events and current status of multiorgan failure including respiratory failure sepsis worsening renal function and possibility of him needing dialysis. They told me that they have thought about it for last couple days and considering patient's wishes they do not think patient would want to continue with aggressive ventilator support and dialysis. They feel the patient would want to in peace. They have decided, in accordance with pt's wishes, to discontinue all medical therapy and institute comfort measures only. I explained them that I will discontinue paralytic at this time and once the paralytic effect wears off patient will be palliatively extubated and I will use opioids, anxiolytics and other agents on as needed basis to promote comfort and discontinue all medical therapy, lab testing and invasive monitoring. Patient will eventually . They verbalized understanding and agreed to proceed. Later MTS met with the patient's family and they consented for organ donation. MTS will evaluate patient now for organ donation and whether he has a viable donor. Patient will eventually qualify for DCD. MDS wants to wait until tomorrow morning and possibly withdrawing the operating room to improved the chance of organ donation. Family is agreeable. Hence at this time patient will be continued at current ventilator and circulatory support with no major change. He is DNR. Once MDS completes the evaluation patient will be taken to operating room most likely tomorrow morning for DCD Total Critical Care Time - 35 minutes Due to a high probability of clinically significant, life threatening deterioration, the patient required my highest level of preparedness to intervene emergently and I personally spent this critical care time directly and personally managing the patient. This critical care time included obtaining a history; examining the patient; pulse oximetry; ordering and review of studies; arranging urgent treatment with development of a management plan; evaluation of patient's response to treatment; frequent reassessment; and discussions with other providers. It was exclusive of separately billable procedures and treating other patients and teaching time. Please see Assessment and Plan section and the rest of the note for further information on patient assessment and treatment This dictation may have been done utilizing a voice recognition system. Attempts have been made to correct errors. However, there may be uncorrected grammatical, spelling, and recognitions errors present. Subjective Date/time seen: 06/14/24 Overnight events reviewed. Patient continues to be on mechanical ventilation he is on 14 of PEEP and 40% FiO2. He is on low rate of tube feeds at 20 mL/hour. Urine output is poor. He is paralyzed with Nimbex and sedated with fentanyl and propofol he is off of Levophed. Review of system was not obtainable. Interval history: Reason for consult: Acute respiratory failure, pneumonia, bacteremia, acute kidney injury, hyponatremia, AFib RVR status post DC cardioversion 06/03: Intubated 06/08: Spontaneous Pneumothorax status post small bore chest tube by ER physician 06/12 prone mechanical ventilation 06/13 patient was placed back in prone position overnight Review of Systems Review of Systems: ROS unobtainable: Yes unobtainable due to endotracheal tube, unobtainable due to medical condition and unobtainable due to mental status Exam Narrative: General: Intubated, sedated, in no acute distress HEENT: Pupils equal and reactive, sclera is clear Lungs/Chest: Coarse breath sounds bilaterally , decreased breath sounds at bases, otherwise adequate air entry, ETT in place, chest tube in place with no air leak Cardiac: Sinus rhythm, rate controlled with PVCs Circulation: Pedal pulses are intact and symmetrical. Abdomen: Soft, nontender, nondistended, hypoactive bowel sounds Extremities: 1+ edema bilateral lower extremities : Jimenez in place Neurologic: Intubated, sedated. Does not open his eyes or follow simple comman d Skin: No skin lesions or rash noted Objective Data Vital Signs Vital Signs: Vital Signs - 24 hr 06/13/24 10:00 06/13/24 10:00 06/13/24 10:00 Temperature 36.7 C Pulse Rate 76 76 76 Respiratory Rate 24 H 24 H 24 H Blood Pressure 110/50 L 110/50 L Pulse Oximetry 100 Oxygen Delivery Fraction of Inspired Oxygen 06/13/24 10:00 06/13/24 10:00 06/13/24 10:00 Temperature Pulse Rate 76 76 76 Respiratory Rate 24 H Blood Pressure 110/50 L Pulse Oximetry Oxygen Delivery Fraction of Inspired Oxygen 06/13/24 10:20 06/13/24 10:45 06/13/24 11:15 Temperature Pulse Rate 89 88 92 Respiratory Rate Blood Pressure 133/62 123/54 L Pulse Oximetry 100 Oxygen Delivery Mechanical Ventilation Fraction of Inspired Oxygen 45 06/13/24 12:00 06/13/24 12:00 06/13/24 12:00 Temperature 36.6 C Pulse Rate 89 89 89 Respiratory Rate 24 H 24 H 24 H Blood Pressure 121/54 L 121/54 L Pulse Oximetry 99 Oxygen Delivery Fraction of Inspired Oxygen 06/13/24 12:00 06/13/24 12:00 06/13/24 12:00 Temperature Pulse Rate 89 87 Respiratory Rate 24 H Blood Pressure Pulse Oximetry 99 Oxygen Delivery Mechanical Ventilation Fraction of Inspired Oxygen 45 06/13/24 12:00 06/13/24 12:45 06/13/24 13:43 Temperature Pulse Rate 82 82 Respiratory Rate 24 H Blood Pressure 111/50 L Pulse Oximetry Oxygen Delivery Fraction of Inspired Oxygen 45 06/13/24 13:43 06/13/24 13:44 06/13/24 13:44 Temperature Pulse Rate 82 82 82 Respiratory Rate 24 H 24 H 24 H Blood Pressure 104/42 L 104/42 L Pulse Oximetry Oxygen Delivery Fraction of Inspired Oxygen 06/13/24 13:47 06/13/24 13:50 06/13/24 14:00 Temperature Pulse Rate 80 80 93 Respiratory Rate 24 H Blood Pressure 109/43 L Pulse Oximetry 98 Oxygen Delivery Mechanical Ventilation Fraction of Inspired Oxygen 45 06/13/24 14:00 06/13/24 14:00 06/13/24 14:00 Temperature Pulse Rate 93 93 93 Respiratory Rate 24 H 24 H 24 H Blood Pressure 109/43 L Pulse Oximetry Oxygen Delivery Fraction of Inspired Oxygen 06/13/24 14:00 06/13/24 14:00 06/13/24 14:03 Temperature 36.9 C Pulse Rate 93 93 85 Respiratory Rate 24 H 24 H Blood Pressure 109/43 L Pulse Oximetry 98 Oxygen Delivery Fraction of Inspired Oxygen 06/13/24 14:30 06/13/24 16:00 06/13/24 16:00 Temperature Pulse Rate 76 Respiratory Rate Blood Pressure 92/36 L Pulse Oximetry 99 Oxygen Delivery Mechanical Ventilation Fraction of Inspired Oxygen 45 45 06/13/24 16:00 06/13/24 16:00 06/13/24 16:00 Temperature 37.3 C Pulse Rate 71 72 73 Respiratory Rate 24 H 24 H Blood Pressure 97/44 L Pulse Oximetry 99 Oxygen Delivery Fraction of Inspired Oxygen 06/13/24 16:00 06/13/24 16:00 06/13/24 16:00 Temperature Pulse Rate 73 73 73 Respiratory Rate 24 H 24 H Blood Pressure 97/44 L 97/44 L Pulse Oximetry Oxygen Delivery Fraction of Inspired Oxygen 06/13/24 17:00 06/13/24 17:00 06/13/24 17:05 Temperature Pulse Rate 76 76 74 Respiratory Rate 24 H 24 H Blood Pressure Pulse Oximetry 99 Oxygen Delivery Mechanical Ventilation Fraction of Inspired Oxygen 45 06/13/24 17:30 06/13/24 17:54 06/13/24 18:00 Temperature Pulse Rate 77 98 99 Respiratory Rate 24 H Blood Pressure 141/75 H Pulse Oximetry 98 Oxygen Delivery Mechanical Ventilation Fraction of Inspired Oxygen 45 06/13/24 18:00 06/13/24 18:00 06/13/24 18:00 Temperature 37.6 C H Pulse Rate 99 99 99 Respiratory Rate 24 H 24 H Blood Pressure 140/68 140/68 Pulse Oximetry 98 Oxygen Delivery Fraction of Inspired Oxygen 06/13/24 18:03 06/13/24 18:03 06/13/24 18:12 Temperature Pulse Rate 98 98 100 Respiratory Rate 24 H 24 H Blood Pressure 140/68 Pulse Oximetry Oxygen Delivery Fraction of Inspired Oxygen 06/13/24 18:16 06/13/24 18:30 06/13/24 20:00 Temperature Pulse Rate 99 115 H 74 Respiratory Rate 24 H Blood Pressure 141/66 H 135/68 Pulse Oximetry Oxygen Delivery Fraction of Inspired Oxygen 06/13/24 20:00 06/13/24 20:00 06/13/24 20:00 Temperature Pulse Rate 74 74 74 Respiratory Rate 24 H 24 H Blood Pressure 109/52 L 109/52 L Pulse Oximetry Oxygen Delivery Fraction of Inspired Oxygen 06/13/24 20:00 06/13/24 20:00 06/13/24 20:00 Temperature Pulse Rate 79 Respiratory Rate Blood Pressure Pulse Oximetry 98 Oxygen Delivery Mechanical Ventilation Fraction of Inspired Oxygen 45 45 06/13/24 20:00 06/13/24 20:02 06/13/24 20:08 Temperature 37.2 C Pulse Rate 75 74 78 Respiratory Rate 24 H 24 H Blood Pressure 109/52 L Pulse Oximetry 99 98 Oxygen Delivery Mechanical Ventilation Fraction of Inspired Oxygen 45 06/13/24 20:16 06/13/24 21:55 06/13/24 21:55 Temperature Pulse Rate 76 71 71 Respiratory Rate 24 H 24 H 24 H Blood Pressure Pulse Oximetry Oxygen Delivery Fraction of Inspired Oxygen 06/13/24 22:00 06/13/24 22:00 06/13/24 22:00 Temperature 36.6 C Pulse Rate 69 70 70 Respiratory Rate 24 H 24 H Blood Pressure 105/53 L Pulse Oximetry 98 Oxygen Delivery Fraction of Inspired Oxygen 06/13/24 22:00 06/13/24 22:00 06/13/24 22:00 Temperature Pulse Rate 70 70 70 Respiratory Rate 24 H 24 H Blood Pressure 105/53 L 105/53 L Pulse Oximetry Oxygen Delivery Fraction of Inspired Oxygen 06/13/24 23:11 06/14/24 00:00 06/14/24 00:00 Temperature Pulse Rate 67 Respiratory Rate Blood Pressure Pulse Oximetry 98 99 Oxygen Delivery Mechanical Ventilation Mechanical Ventilation Fraction of Inspired Oxygen 40 45 45 06/14/24 00:00 06/14/24 00:00 06/14/24 00:00 Temperature 36.4 C L Pulse Rate 76 76 76 Respiratory Rate 24 H 24 H Blood Pressure 117/59 L Pulse Oximetry 99 Oxygen Delivery Fraction of Inspired Oxygen 06/14/24 00:00 06/14/24 00:00 06/14/24 00:00 Temperature Pulse Rate 76 76 76 Respiratory Rate 24 H 24 H Blood Pressure 117/59 L 117/59 L Pulse Oximetry Oxygen Delivery Fraction of Inspired Oxygen 06/14/24 00:49 06/14/24 01:03 06/14/24 02:00 Temperature Pulse Rate 79 79 75 Respiratory Rate 24 H 24 H 24 H Blood Pressure 119/58 L 119/58 L Pulse Oximetry Oxygen Delivery Fraction of Inspired Oxygen 06/14/24 02:00 06/14/24 02:00 06/14/24 02:00 Temperature 36.3 C L Pulse Rate 75 76 76 Respiratory Rate 24 H 24 H Blood Pressure 120/56 L Pulse Oximetry 99 Oxygen Delivery Fraction of Inspired Oxygen 06/14/24 02:00 06/14/24 02:00 06/14/24 02:00 Temperature Pulse Rate 76 76 76 Respiratory Rate 24 H 24 H Blood Pressure 120/56 L 120/56 L Pulse Oximetry Oxygen Delivery Fraction of Inspired Oxygen 06/14/24 02:02 06/14/24 02:02 06/14/24 02:10 Temperature Pulse Rate 78 79 81 Respiratory Rate 24 H 24 H Blood Pressure Pulse Oximetry 100 Oxygen Delivery Mechanical Ventilation Fraction of Inspired Oxygen 40 06/14/24 04:00 06/14/24 04:00 06/14/24 04:00 Temperature Pulse Rate 90 Respiratory Rate Blood Pressure Pulse Oximetry 100 Oxygen Delivery Mechanical Ventilation Fraction of Inspired Oxygen 45 45 06/14/24 04:00 06/14/24 04:00 06/14/24 04:00 Temperature 36.2 C L Pulse Rate 93 93 93 Respiratory Rate 24 H 24 H 24 H Blood Pressure 142/75 H Pulse Oximetry 100 Oxygen Delivery Fraction of Inspired Oxygen 06/14/24 04:00 06/14/24 04:00 06/14/24 04:55 Temperature Pulse Rate 93 93 106 H Respiratory Rate 24 H Blood Pressure 142/75 H 142/75 H Pulse Oximetry 100 Oxygen Delivery Mechanical Ventilation Fraction of Inspired Oxygen 40 06/14/24 05:27 06/14/24 05:27 06/14/24 05:29 Temperature Pulse Rate 123 H 123 H 101 H Respiratory Rate 24 H 24 H 24 H Blood Pressure Pulse Oximetry Oxygen Delivery Fraction of Inspired Oxygen 06/14/24 05:29 06/14/24 06:00 06/14/24 06:00 Temperature Pulse Rate 101 H 96 96 Respiratory Rate 24 H 24 H 24 H Blood Pressure 146/71 H Pulse Oximetry Oxygen Delivery Fraction of Inspired Oxygen 06/14/24 06:00 06/14/24 06:00 06/14/24 06:00 Temperature Pulse Rate 96 96 96 Respiratory Rate 24 H Blood Pressure 146/71 H Pulse Oximetry Oxygen Delivery Fraction of Inspired Oxygen 06/14/24 06:00 06/14/24 07:57 06/14/24 08:00 Temperature 36.2 C L 36.3 C L Pulse Rate 96 102 H 101 H Respiratory Rate 24 H 26 H Blood Pressure 146/71 H 146/77 H Pulse Oximetry 100 100 100 Oxygen Delivery Mechanical Ventilation Fraction of Inspired Oxygen 40 06/14/24 08:00 06/14/24 08:00 06/14/24 08:16 Temperature Pulse Rate 95 95 88 Respiratory Rate 24 H 24 H Blood Pressure 146/77 H Pulse Oximetry Oxygen Delivery Fraction of Inspired Oxygen 06/14/24 09:00 Temperature Pulse Rate 132 H Respiratory Rate 26 H Blood Pressure 174/101 H Pulse Oximetry Oxygen Delivery Fraction of Inspired Oxygen Intake/Output Intake/Output: Intake & Output 06/11/24 06/12/24 06/13/24 06/14/24 23:59 23:59 23:59 23:59 Intake Total 3656.3 4055.8 3240.4 1712.6 Output Total 2350 1210 205 50 Balance 1306.3 2845.8 3035.4 1662.6 Meds/Results Medications: Active Medications Generic Name Dose Route Start Last Admin Trade Name Freq PRN Reason Stop Dose Admin Acetaminophen 650 mg 06/03/24 13:56 06/12/24 04:30 Acetaminophen Elixir 325 Mg/10.15 Ml Udc FEED TUBE 650 mg Q4H PRN Administration Fever Albuterol/Ipratropium 3 ml 06/03/24 13:50 Ipratropium 0.5 Mg/Albuterol Sulfate 2.5 Mg Ampul.Neb 3 Ml INHALATION Q6HRT PRN Wheezng Albuterol/Ipratropium 3 ml 06/03/24 20:00 06/14/24 02:02 Ipratropium 0.5 Mg/Albuterol Sulfate 2.5 Mg Ampul.Neb 3 Ml INHALATION 3 ml Q6HRT ARABELLA Administration Amiodarone HCl 200 mg 06/14/24 08:00 06/14/24 08:16 Amiodarone Hcl 200 Mg Tablet PO 200 mg DAILY@0800 ARABELLA Administration Dextrose 12.5 gm 06/03/24 13:46 06/13/24 23:49 Dextrose 50% 25 Gm/50 Ml Syringe IV PUSH 12.5 gm PRN PRN Administration Hypoglycemia Protocol Enoxaparin Sodium 30 mg 06/13/24 09:00 06/14/24 08:18 Enoxaparin 30 Mg/0.3 Ml Syringe SUB-Q 30 mg QAM ARABELLA Administration Glucagon 1 mg 06/03/24 13:46 Glucagon For Inj 1 Mg Vial IM PRN PRN Hypoglycemia Protocol Glucose 15 gm 06/03/24 13:46 Glucose Oral Gel 15 Gm Of Glucse In 37.5 Gm Tube PO PRN PRN Hypoglycemia Protocol Heparin Sodium (Porcine) 6,000 units 06/03/24 12:33 06/04/24 23:06 Heparin Sodium 5,000 Units/Ml Vial IV PUSH 6,000 units PRN PRN Administration aPTT less than 55 seconds Heparin Sodium (Porcine) 3,000 units 06/03/24 12:33 06/06/24 05:43 Heparin Sodium 5,000 Units/Ml Vial IV PUSH 3,000 units PRN PRN Administration aPTT 55 - 70 seconds Hydralazine HCl 10 mg 06/10/24 11:11 Hydralazine Hcl 20 Mg/Ml Vial IV PUSH Q4H PRN Blood Pressure - High Heparin Sodium/Dextrose 25,000 units in 250 mls @ 0 mls/hr 06/03/24 12:35 06/09/24 19:27 Heparin Sodium/D5w 100 Units/Ml IV CONT Infused .Q0M ARABELLA Titration Protocol Dextrose 1,000 mls @ 100 mls/hr 06/03/24 13:46 Dextrose 5% 1,000 Ml IVPB PRN PRN Hypoglycemia Protocol Fentanyl Citrate 2,500 mcg in 250 mls @ 20 mls/hr 06/03/24 13:50 06/14/24 08:00 Fentanyl 2,500 Mcg/Ns 250 Ml IV CONT 200 mcg/hr .[id number] ARABELLA 20 mls/hr Titration Protocol 200 MCG/HR Cefepime HCl 2 gm in 50 mls @ 100 mls/hr 06/04/24 15:00 06/14/24 04:48 Maxipime 2 Gm/Ns 50 Ml IVPB Infused Q12H ARABELLA Infusion Micafungin Sodium 100 mg/ 100 mls @ 100 mls/hr 06/08/24 09:00 06/14/24 08:17 Sodium Chloride IVPB 100 mls/hr DAILY ARABELLA Administration Vancomycin HCl 1,250 mg in 250 mls @ 166.667 mls/hr 06/11/24 18:00 06/13/24 18:11 Vancomycin 1,250 Mg/Ns 250 Ml IVPB Not Given Q12H ARABELLA Propofol 100 mls @ 22.77 mls/hr 06/11/24 17:45 06/14/24 06:00 Diprivan IV CONT 50 mcg/kg/min .Q4H24M ARABELLA 22.77 mls/hr Titration Protocol 50 MCG/KG/MIN Norepinephrine Bitartrate 8 mg in 250 mls @ 0 mls/hr 06/12/24 10:30 06/14/24 06:00 Levophed 8 Mg/D5w 250 Ml IV CONT 0 mcg/min .Q0M ARABELLA 0 mls/hr Titration Protocol Cisatracurium Besylate 200 mg/ 100 mls @ 0 mls/hr 06/12/24 11:40 06/14/24 09:00 Sodium Chloride IV CONT 0 mcg/kg/min .Q0M ARABELLA 0 mls/hr Titration Protocol Albumin Human 100 mls @ 60 mls/hr 06/13/24 18:00 06/14/24 09:21 Albutein IVPB 06/14/24 13:39 Infused Q6HR ARABELLA Infusion Insulin Aspart 3 - 6 units 06/03/24 18:00 06/14/24 06:26 Insulin Aspart (*Bkc) 100 Units/Ml SUB-Q Not Given Q6HR [facility] Protocol Insulin Glargine 5 units 06/09/24 09:00 06/13/24 10:41 Insulin Glargine (*Bkc) 100 Units/Ml SUB-Q 5 units DAILY ARABELLA Administration Metoprolol Tartrate 50 mg 06/09/24 09:00 06/12/24 21:05 Metoprolol Tartrate 50 Mg Tab FEED TUBE Not Given Q12HR ARABELLA Midazolam HCl 2 mg 06/12/24 08:54 06/12/24 09:00 Midazolam Hcl (*Crx) 2 Mg/2 Ml Vial IV PUSH 2 mg Q1H PRN Administration Sedation Multi-Ingred Cream/Lotion/Oil/Oint 1 applic 06/03/24 14:00 06/14/24 08:16 Mineral Oil/White Petrolatum Ointment EACH EYE 1 applic Q12HR ARABELLA Administration Pantoprazole Sodium 40 mg 06/04/24 09:00 06/14/24 08:16 Pantoprazole Sodium Iv 40 Mg Vial IV PUSH 40 mg QAM ARABELLA Administration Polyethylene Glycol 17 gm 06/09/24 10:25 06/14/24 08:16 Polyethylene Glycol 3350 17 Gm Powd.Pack PO 17 gm QAM ARABELLA Administration Senna/Docusate Sodium 1 tab 06/11/24 21:00 06/13/24 20:19 Senna/Docusate Sodium Tablet PO 1 tab HS ARABELLA Administration Sodium Bicarbonate 650 mg 06/13/24 09:00 06/14/24 08:16 Sodium Bicarbonate Tab 650 Mg Tablet FEED TUBE 650 mg BID ARABELLA Administration Sodium Chloride 10 ml 06/03/24 22:00 06/14/24 05:33 Central Line Flush IV PUSH 10 ml Q8HR ARABELLA Administration Sodium Chloride 20 ml 06/03/24 19:36 06/11/24 04:53 Central Line Flush IV PUSH 20 ml PRN PRN Administration after blood draws Sodium Zirconium Cyclosilicate 10 gm 06/13/24 10:00 06/13/24 17:06 Sodium Zirconium Cyclosilicate 10 Gm Powd.Pack FEED TUBE 10 gm BID@1000,1800 ARABELLA Administration Radiology Results: ITS Impressions Abdomen Ultrasound 06/05/24 08:52 IMPRESSION: 1. Small volume of ascites. Chest/Abdomen/Pelvis CT 06/11/24 09:34 IMPRESSION: CHEST: 1. Bilateral pneumonia with slight improvement in the upper lobes and worsening in the lower lobes. 2. Left chest tube with tiny apical pneumothorax. ABDOMEN/PELVIS: 1. No evidence of appendicitis, diverticulitis or intestinal obstruction. 2. Possible gallstones. 3. Retroperitoneal fat stranding which may be inflammatory. Clinical correlation and follow-up advised. 4. Thickened wall of the rectum. Clinical evaluation advised. Renal Ultrasound 06/13/24 17:11 IMPRESSION: No hydronephrosis or renal calculi. 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 Correlate clinically for pulmonary edema and/or chronic interstitial disease. Support tubes, as above. No pneumothorax. Labs Labs: Laboratory Results - last 24 hr 06/13/24 06/13/24 06/13/24 11:26 17:06 17:06 WBC RBC Hgb Hct MCV MCH MCHC RDW Plt Count MPV Immature Gran % (Auto) Neut % (Auto) Lymph % (Auto) [place] % (Auto) Eos % (Auto) Baso % (Auto) Lymph # (Auto) [place] # (Auto) Eos # (Auto) Baso # (Auto) Abs Immat Gran (auto) Absolute Neuts (auto) Absolute Nucleated RBC Total Counted Neutrophils % (Manual) Band Neutrophils % Lymphocytes % (Manual) Monocytes % (Manual) Nucleated RBC % Abs Neuts (Manual) Abs Lymphs (Manual) Abs Monocytes (Manual) Absolute Eos (Manual) Platelet Estimate % Immature Plt Fraction Schistocytes Puncture Site ABG pH ABG pCO2 ABG pO2 ABG PO2/FiO2 Ratio ABG HCO3 ABG O2 Saturation ABG O2 Content ABG Base Excess A-a Gradient Oxyhemoglobin Carboxyhemoglobin Methemoglobin Reduced Hemoglobin Total Hemoglobin O2 Delivery Device O2 Liters/Min Minute Volume Vent Rate Vent Mode FiO2 Tidal Volume PEEP Peak Inspir Pressure Pressure Support Sodium Potassium Chloride Carbon Dioxide Anion Gap BUN Creatinine Estim Creat Clear Calc Estimated GFR Glucose POC Capillary Glucose 118 H Calcium Phosphorus Magnesium Total Bilirubin AST ALT Alkaline Phosphatase Total Creatine Kinase Total Protein Albumin Urine Eosinophils None seen U Random Total Protein 44 Cancelled Ur Random Sodium 87 Ur Random Urea 85 Urine Total Volume Cancelled Urine Creatinine 52.4 Protein/Creat Ratio 2 Vancomycin Trough Hep Bs Antigen Hep Bs Antibody 06/13/24 06/13/24 06/13/24 17:06 17:55 17:56 WBC RBC Hgb Hct MCV MCH MCHC RDW Plt Count MPV Immature Gran % (Auto) Neut % (Auto) Lymph % (Auto) [place] % (Auto) Eos % (Auto) Baso % (Auto) Lymph # (Auto) [place] # (Auto) Eos # (Auto) Baso # (Auto) Abs Immat Gran (auto) Absolute Neuts (auto) Absolute Nucleated RBC Total Counted Neutrophils % (Manual) Band Neutrophils % Lymphocytes % (Manual) Monocytes % (Manual) Nucleated RBC % Abs Neuts (Manual) Abs Lymphs (Manual) Abs Monocytes (Manual) Absolute Eos (Manual) Platelet Estimate % Immature Plt Fraction Schistocytes Puncture Site ABG pH ABG pCO2 ABG pO2 ABG PO2/FiO2 Ratio ABG HCO3 ABG O2 Saturation ABG O2 Content ABG Base Excess A-a Gradient Oxyhemoglobin Carboxyhemoglobin Methemoglobin Reduced Hemoglobin Total Hemoglobin O2 Delivery Device O2 Liters/Min Minute Volume Vent Rate Vent Mode FiO2 Tidal Volume PEEP Peak Inspir Pressure Pressure Support Sodium Potassium Chloride Carbon Dioxide Anion Gap BUN Creatinine Estim Creat Clear Calc Estimated GFR Glucose POC Capillary Glucose 68 66 Calcium Phosphorus Magnesium Total Bilirubin AST ALT Alkaline Phosphatase Total Creatine Kinase Total Protein Albumin Urine Eosinophils U Random Total Protein Ur Random Sodium Ur Random Urea Urine Total Volume Urine Creatinine Cancelled Protein/Creat Ratio 2 0.84 H Vancomycin Trough 44.9 H* Hep Bs Antigen Hep Bs Antibody 06/13/24 06/13/24 06/14/24 18:35 23:45 00:13 WBC RBC Hgb Hct MCV MCH MCHC RDW Plt Count MPV Immature Gran % (Auto) Neut % (Auto) Lymph % (Auto) [place] % (Auto) Eos % (Auto) Baso % (Auto) Lymph # (Auto) [place] # (Auto) Eos # (Auto) Baso # (Auto) Abs Immat Gran (auto) Absolute Neuts (auto) Absolute Nucleated RBC Total Counted Neutrophils % (Manual) Band Neutrophils % Lymphocytes % (Manual) Monocytes % (Manual) Nucleated RBC % Abs Neuts (Manual) Abs Lymphs (Manual) Abs Monocytes (Manual) Absolute Eos (Manual) Platelet Estimate % Immature Plt Fraction Schistocytes Puncture Site ABG pH ABG pCO2 ABG pO2 ABG PO2/FiO2 Ratio ABG HCO3 ABG O2 Saturation ABG O2 Content ABG Base Excess A-a Gradient Oxyhemoglobin Carboxyhemoglobin Methemoglobin Reduced Hemoglobin Total Hemoglobin O2 Delivery Device O2 Liters/Min Minute Volume Vent Rate Vent Mode FiO2 Tidal Volume PEEP Peak Inspir Pressure Pressure Support Sodium Potassium Chloride Carbon Dioxide Anion Gap BUN Creatinine Estim Creat Clear Calc Estimated GFR Glucose POC Capillary Glucose 118 H 64 L 133 H Calcium Phosphorus Magnesium Total Bilirubin AST ALT Alkaline Phosphatase Total Creatine Kinase Total Protein Albumin Urine Eosinophils U Random Total Protein Ur Random Sodium Ur Random Urea Urine Total Volume Urine Creatinine Protein/Creat Ratio 2 Vancomycin Trough Hep Bs Antigen Hep Bs Antibody 06/14/24 06/14/24 06/14/24 05:00 05:39 05:39 WBC Cancelled 17.8 H RBC Cancelled Hgb Hct MCV MCH MCHC RDW Plt Count MPV Immature Gran % (Auto) Neut % (Auto) Lymph % (Auto) [place] % (Auto) Eos % (Auto) Baso % (Auto) Lymph # (Auto) [place] # (Auto) Eos # (Auto) Baso # (Auto) Abs Immat Gran (auto) Absolute Neuts (auto) Absolute Nucleated RBC Total Counted Neutrophils % (Manual) Band Neutrophils % Lymphocytes % (Manual) Monocytes % (Manual) Nucleated RBC % Abs Neuts (Manual) Abs Lymphs (Manual) Abs Monocytes (Manual) Absolute Eos (Manual) Platelet Estimate % Immature Plt Fraction Schistocytes Puncture Site Right radial ABG pH 7.327 L ABG pCO2 43.4 ABG pO2 81.8 ABG PO2/FiO2 Ratio 2.05 ABG HCO3 22.2 ABG O2 Saturation 95.3 ABG O2 Content 10.5 L ABG Base Excess -3.5 A-a Gradient 153.5 Oxyhemoglobin 94.6 Carboxyhemoglobin 0.4 Methemoglobin 0.4 Reduced Hemoglobin 4.6 Total Hemoglobin 7.8 L* O2 Delivery Device Ventilator O2 Liters/Min Not Reportable Minute Volume Not Reportable Vent Rate 24 Vent Mode Cmv FiO2 40 Tidal Volume 450 PEEP 14 Peak Inspir Pressure Not Reportable Pressure Support Not Reportable Sodium Potassium Chloride Carbon Dioxide Anion Gap BUN Creatinine Estim Creat Clear Calc Estimated GFR Glucose POC Capillary Glucose Calcium Phosphorus Magnesium Total Bilirubin AST ALT Alkaline Phosphatase Total Creatine Kinase Total Protein Albumin Urine Eosinophils U Random Total Protein Ur Random Sodium Ur Random Urea Urine Total Volume Urine Creatinine Protein/Creat Ratio 2 Vancomycin Trough Hep Bs Antigen Hep Bs Antibody 06/14/24 06/14/24 06/14/24 05:39 05:39 05:39 WBC RBC 2.40 L Hgb Cancelled 7.3 L Hct Cancelled 23.2 L MCV Cancelled MCH MCHC RDW Plt Count MPV Immature Gran % (Auto) Neut % (Auto) Lymph % (Auto) [place] % (Auto) Eos % (Auto) Baso % (Auto) Lymph # (Auto) [place] # (Auto) Eos # (Auto) Baso # (Auto) Abs Immat Gran (auto) Absolute Neuts (auto) Absolute Nucleated RBC Total Counted Neutrophils % (Manual) Band Neutrophils % Lymphocytes % (Manual) Monocytes % (Manual) Nucleated RBC % Abs Neuts (Manual) Abs Lymphs (Manual) Abs Monocytes (Manual) Absolute Eos (Manual) Platelet Estimate % Immature Plt Fraction Schistocytes Puncture Site ABG pH ABG pCO2 ABG pO2 ABG PO2/FiO2 Ratio ABG HCO3 ABG O2 Saturation ABG O2 Content ABG Base Excess A-a Gradient Oxyhemoglobin Carboxyhemoglobin Methemoglobin Reduced Hemoglobin Total Hemoglobin O2 Delivery Device O2 Liters/Min Minute Volume Vent Rate Vent Mode FiO2 Tidal Volume PEEP Peak Inspir Pressure Pressure Support Sodium Potassium Chloride Carbon Dioxide Anion Gap BUN Creatinine Estim Creat Clear Calc Estimated GFR Glucose POC Capillary Glucose Calcium Phosphorus Magnesium Total Bilirubin AST ALT Alkaline Phosphatase Total Creatine Kinase Total Protein Albumin Urine Eosinophils U Random Total Protein Ur Random Sodium Ur Random Urea Urine Total Volume Urine Creatinine Protein/Creat Ratio 2 Vancomycin Trough Hep Bs Antigen Hep Bs Antibody 06/14/24 06/14/24 06/14/24 05:39 05:39 05:39 WBC RBC Hgb Hct MCV 96.7 MCH Cancelled 30.4 MCHC Cancelled 31.5 L RDW Cancelled Plt Count MPV Immature Gran % (Auto) Neut % (Auto) Lymph % (Auto) [place] % (Auto) Eos % (Auto) Baso % (Auto) Lymph # (Auto) [place] # (Auto) Eos # (Auto) Baso # (Auto) Abs Immat Gran (auto) Absolute Neuts (auto) Absolute Nucleated RBC Total Counted Neutrophils % (Manual) Band Neutrophils % Lymphocytes % (Manual) Monocytes % (Manual) Nucleated RBC % Abs Neuts (Manual) Abs Lymphs (Manual) Abs Monocytes (Manual) Absolute Eos (Manual) Platelet Estimate % Immature Plt Fraction Schistocytes Puncture Site ABG pH ABG pCO2 ABG pO2 ABG PO2/FiO2 Ratio ABG HCO3 ABG O2 Saturation ABG O2 Content ABG Base Excess A-a Gradient Oxyhemoglobin Carboxyhemoglobin Methemoglobin Reduced Hemoglobin Total Hemoglobin O2 Delivery Device O2 Liters/Min Minute Volume Vent Rate Vent Mode FiO2 Tidal Volume PEEP Peak Inspir Pressure Pressure Support Sodium Potassium Chloride Carbon Dioxide Anion Gap BUN Creatinine Estim Creat Clear Calc Estimated GFR Glucose POC Capillary Glucose Calcium Phosphorus Magnesium Total Bilirubin AST ALT Alkaline Phosphatase Total Creatine Kinase Total Protein Albumin Urine Eosinophils U Random Total Protein Ur Random Sodium Ur Random Urea Urine Total Volume Urine Creatinine Protein/Creat Ratio 2 Vancomycin Trough Hep Bs Antigen Hep Bs Antibody 06/14/24 06/14/24 06/14/24 05:39 05:39 05:39 WBC RBC Hgb Hct MCV MCH MCHC RDW 15.1 H Plt Count Cancelled 306 MPV Cancelled 9.7 Immature Gran % (Auto) Not Reportable Neut % (Auto) Not Reportable Lymph % (Auto) Not Reportable [place] % (Auto) Not Reportable Eos % (Auto) Not Reportable Baso % (Auto) Not Reportable Lymph # (Auto) Not Reportable [place] # (Auto) Not Reportable Eos # (Auto) Not Reportable Baso # (Auto) Not Reportable Abs Immat Gran (auto) Not Reportable Absolute Neuts (auto) Not Reportable Absolute Nucleated RBC Not Reportable Total Counted 100 Neutrophils % (Manual) 93 H Band Neutrophils % 4 Lymphocytes % (Manual) 2 L Monocytes % (Manual) 1 L Nucleated RBC % Not Reportable Abs Neuts (Manual) 17.26 H Abs Lymphs (Manual) 0.35 L Abs Monocytes (Manual) 0.17 Absolute Eos (Manual) 0.17 Platelet Estimate Adequate % Immature Plt Fraction Cancelled Schistocytes None seen Puncture Site ABG pH ABG pCO2 ABG pO2 ABG PO2/FiO2 Ratio ABG HCO3 ABG O2 Saturation ABG O2 Content ABG Base Excess A-a Gradient Oxyhemoglobin Carboxyhemoglobin Methemoglobin Reduced Hemoglobin Total Hemoglobin O2 Delivery Device O2 Liters/Min Minute Volume Vent Rate Vent Mode FiO2 Tidal Volume PEEP Peak Inspir Pressure Pressure Support Sodium 145 Potassium 4.8 Chloride 108 H Carbon Dioxide 23 Anion Gap 14 H BUN 85 H D Creatinine 3.03 H Estim Creat Clear Calc Estimated GFR Glucose POC Capillary Glucose Calcium Phosphorus Magnesium Total Bilirubin AST ALT Alkaline Phosphatase Total Creatine Kinase Total Protein Albumin Urine Eosinophils U Random Total Protein Ur Random Sodium Ur Random Urea Urine Total Volume Urine Creatinine Protein/Creat Ratio 2 Vancomycin Trough Hep Bs Antigen Hep Bs Antibody 06/14/24 06/14/24 06/14/24 05:39 05:39 05:39 WBC RBC Hgb Hct MCV MCH MCHC RDW Plt Count MPV Immature Gran % (Auto) Neut % (Auto) Lymph % (Auto) [place] % (Auto) Eos % (Auto) Baso % (Auto) Lymph # (Auto) [place] # (Auto) Eos # (Auto) Baso # (Auto) Abs Immat Gran (auto) Absolute Neuts (auto) Absolute Nucleated RBC Total Counted Neutrophils % (Manual) Band Neutrophils % Lymphocytes % (Manual) Monocytes % (Manual) Nucleated RBC % Abs Neuts (Manual) Abs Lymphs (Manual) Abs Monocytes (Manual) Absolute Eos (Manual) Platelet Estimate % Immature Plt Fraction Schistocytes Puncture Site ABG pH ABG pCO2 ABG pO2 ABG PO2/FiO2 Ratio ABG HCO3 ABG O2 Saturation ABG O2 Content ABG Base Excess A-a Gradient Oxyhemoglobin Carboxyhemoglobin Methemoglobin Reduced Hemoglobin Total Hemoglobin O2 Delivery Device O2 Liters/Min Minute Volume Vent Rate Vent Mode FiO2 Tidal Volume PEEP Peak Inspir Pressure Pressure Support Sodium Potassium Chloride Carbon Dioxide Anion Gap BUN Creatinine Cancelled Estim Creat Clear Calc 26 Cancelled Estimated GFR 22 L Cancelled Glucose 96 POC Capillary Glucose Calcium 7.5 L Phosphorus 8.0 H Magnesium 2.0 Total Bilirubin 0.6 AST 41 ALT 19 Alkaline Phosphatase 96 Total Creatine Kinase 396 H Total Protein Albumin Urine Eosinophils U Random Total Protein Ur Random Sodium Ur Random Urea Urine Total Volume Urine Creatinine Protein/Creat Ratio 2 Vancomycin Trough Hep Bs Antigen Hep Bs Antibody 06/14/24 06/14/24 05:39 07:50 WBC RBC Hgb Hct MCV MCH MCHC RDW Plt Count MPV Immature Gran % (Auto) Neut % (Auto) Lymph % (Auto) [place] % (Auto) Eos % (Auto) Baso % (Auto) Lymph # (Auto) [place] # (Auto) Eos # (Auto) Baso # (Auto) Abs Immat Gran (auto) Absolute Neuts (auto) Absolute Nucleated RBC Total Counted Neutrophils % (Manual) Band Neutrophils % Lymphocytes % (Manual) Monocytes % (Manual) Nucleated RBC % Abs Neuts (Manual) Abs Lymphs (Manual) Abs Monocytes (Manual) Absolute Eos (Manual) Platelet Estimate % Immature Plt Fraction Schistocytes Puncture Site ABG pH ABG pCO2 ABG pO2 ABG PO2/FiO2 Ratio ABG HCO3 ABG O2 Saturation ABG O2 Content ABG Base Excess A-a Gradient Oxyhemoglobin Carboxyhemoglobin Methemoglobin Reduced Hemoglobin Total Hemoglobin O2 Delivery Device O2 Liters/Min Minute Volume Vent Rate Vent Mode FiO2 Tidal Volume PEEP Peak Inspir Pressure Pressure Support Sodium Potassium Chloride Carbon Dioxide Anion Gap BUN Creatinine Estim Creat Clear Calc Estimated GFR Glucose POC Capillary Glucose 80 Calcium Phosphorus Magnesium Total Bilirubin AST ALT Alkaline Phosphatase Total Creatine Kinase Cancelled Total Protein 6.0 L Albumin 2.7 L Urine Eosinophils U Random Total Protein Ur Random Sodium Ur Random Urea Urine Total Volume Urine Creatinine Protein/Creat Ratio 2 Vancomycin Trough Hep Bs Antigen Negative Hep Bs Antibody Quality VTE Prophylaxis VTE prophylaxis: pharmacologic ordered (currently on heparin drip)
[2024-06-14] MEDS: SODIUM ZIRCONIUM CYCLOSILICATE 10 GM POWD.PACK FEED TUBE ×2 (10:00→17:06)
[2024-06-14 10:08] LABS: Hepatitis B Surface Anti Res Indeterminate
[2024-06-14] MEDS: MIDAZOLAM HCL (*CRX) 2 MG/2 ML VIAL 4 MG IV PUSH (10:13)
[2024-06-14] MEDS: MIDAZOLAM 100MG/NS 100ML(*CRX) 100 MG/100 ML BAG IV CONT (10:13)
--- NOTE | 2024-06-14 10:14 | PCFNICU ---
ICU Rounding Note: Pt current nutrition is Nepro at 20 ml/hr. Last recorded weight is 79.7 kg, up from 74.6 kg on admit. Bowel Motility: No BM reported-Miralax has been given since 06/09 Labs Reviewed: Cr 3.03, BUN 85, GFR 22, Alb 2.7, Hct 23.2, Hgb 7.3 Meds Noted:Lantus, Protonix, NovoLog, Levophed, Propofol 50 wpx=698 kcals, Fentanyl, Norepinephrine. Skin: Deep Tissue-sacrum. Additional Notes: Patient remains on mechanical vent. Tube feedings changed to Nepro at 20 ml/hr and tolerating. Flush 250 ml q 4hours, Na is WNL. Spoke with nursing and Document Examiner today, plans for withdraw of care tomorrow 06/15. Following daily in ICU rounds. Will monitor weight, labs, skin, diet orders, meds every Tuesday and Tuesday.
[2024-06-14 10:26] LABS: Glucose Point of Care 84 mg/dl (65-105)
[2024-06-14 11:48] LABS: Glucose Point of Care 77 mg/dl (65-105)
[2024-06-14 12:26] LABS: Mean Corpuscular Hemoglobin 29.8 pg (26-34); Mean Corpuscular Volume 96.3 fl (80-100); Mean Platelet Volume 9.6 fl (7.4-10.4); Platelet Count Result 244 k/mm3 (150-375); Red Blood Count 2.18 M/mm3 (4.6-6.20); Red Cell Distribution Width 15.1 % (11.5-14.5); White Blood Count 14.9 K/mm3 (4.5-10.0)
[2024-06-14 12:30] LABS: Hemoglobin 6.5 g/dL (14.0-18.0)
[2024-06-14 12:39] LABS: INR 1.3; Prothrombin Time 16.2 Seconds (11.1-14.7)
[2024-06-14 12:40] LABS: Lactic Acid Reflex 0.6 mmol/L (0.7-2.0); Partial Thromboplastin Time 32.3 Seconds (22.3-36.8)
[2024-06-14 12:46] LABS: Alanine Aminotransferase 19 U/L (6-50); Alkaline Phosphatase 93 U/L (38-126); Amylase 106 U/L (30-110); Anion Gap 12 mmol/L (4-12); Aspartate Amino Transferase 37 U/L (17-59); Bilirubin,Total 0.7 mg/dL (0.2-1.3); Blood Urea Nitrogen 88 mg/dL (9-20); Calcium 7.5 mg/dL (8.4-10.2); Carbon Dioxide 24 mmol/L (22-30); Chloride 107 mmol/L (98-107); Estimated CRCL calculation 24 ml/min; Estimated Glomerular Filt Rate 21; Glucose 78 mg/dL (65-110); Lipase 429 U/L (23-300); Phosphorus 8.4 mg/dL (2.5-4.5); Sodium 143 mmol/L (137-145)
[2024-06-14 12:49] LABS: Add Urine Microscopic? YES; Appearance Urine Turbid (Clear); Bacteria Urine None Seen /hpf; Bilirubin Urine Negative (Negative); Blood Urine Negative (Negative); Color Urine Dark Yellow (Yellow); Glucose Urine UA 1+ mg/dL (Negative); Ketones Urine Trace mg/dL (Negative); Leukocyte Esterase Ur Negative LEU/UL (Negative); Need Manual Microscopic Reviewed; Nitrate Urine Negative (Negative); Non Pathogenic Casts 0-2; Protein Urine 2+ mg/dL (Negative); Specific Grav Ur 1.029 (1.001-1.035); Squamous Epithelial Cell Urine Moderate /hpf (Few); Urobilinogen Urine 0.2 mg/dL (<2.0)
[2024-06-14 12:54] LABS: Albumin Level 2.6 g/dL (3.5-5.1)
[2024-06-14 12:56] LABS: Troponin I 0.049 ng/mL (0.000-0.034)
--- NOTE | 2024-06-14 13:36 | P.PNNP_ITS ---
Progress Note: A&P Assessment and Plan (1) SABA (acute kidney injury): Code(s): N17.9 - Acute kidney failure, unspecified Status: Acute Assessment and Plan: * had initially resolved (as noted by labs from 06/08 - 06/12) * recurrence noted on AM labs (06/13) * associated with elevated K+ as well * suspect multifactorial etiology: * prerenal factors/hypovolemia * infection/sepsis * hemodynamic instability * hypoxia * contrast (CTA on 06/11) * concurrent IV diuretic use * remains at risk for [employer]/dialysis -- however, family not interested in this intervention * follow repeat labs and UOP (2) Septic shock: Code(s): A41.9 - Sepsis, unspecified organism; R65.21 - Severe sepsis with septic shock Status: Acute Assessment and Plan: * requiring vasopressor therapy to maintain MAP * thought to be secondary to pneumonia +/- influenza * culture data noted: * blood cultures (06/03) with Streptococcus pneumonia (2/2 bottles) * blood cultures (06/06) with Shakira and Staph epidermidis (1/2 bottles) * blood cultures (06/08) with no growth to date * on antibiotics and antifungal therapy * follow trend of hemodynamics (3) Acute respiratory failure with hypoxia: Code(s): J96.01 - Acute respiratory failure with hypoxia Status: Acute Assessment and Plan: * thought to be secondary to pneumonia +/- influenza * intubated in the ER due to worsening hypoxia and tachypnea (impending respiratory failure) * prone positioning to assist with oxygenation as needed * viral testing negative for RSV and COVID * requiring sedation along with paralytics for ventilator synchrony * worsening respiratory status noted on 06/12 * continue supportive therapy (4) Multifocal pneumonia: Code(s): J18.9 - Pneumonia, unspecified organism Status: Acute Assessment and Plan: * as noted by admission/recent imaging * continue therapy as outlined (5) Hypernatremia: Code(s): E87.0 - Hyperosmolality and hypernatremia Status: Acute Assessment and Plan: * initially hyponatremic on admission (which resolved) * then developed hypernatremia (on 06/10) * free water tube flushes being titrated * follow trend of sodium (6) Hyponatremia: Code(s): E87.1 - Hypo-osmolality and hyponatremia Status: Acute Assessment and Plan: * RESOLVED * outpatient labs reviewed: * sodium 137mmol/L on 12/26/23 * sodium 140mmol/L on 10/19/22 * admission sodium 117mmol/L * etiology not entirely clear: * volume depletion? * excess free water intake? * possible medications? * secondary to acute/chronic lung disease (known smoker x 25 years) * influenza * pneumonia * evaluation to date noted: * TSH okay * cortisol elevated (but was on steroids during testing) * SPEP/UPEP without paraproteinemia * serum osmo 266, urine osmo 387 * overcorrection (on 06/06 - 06/07) -- s/p D5W fluids and DDAVP to slow this down * this was achieved with ongoing appropriate correction * follow trend of serial sodium levels (7) Spontaneous pneumothorax: Code(s): J93.83 - Other pneumothorax Status: Acute Assessment and Plan: * as noted by CXR on 06/08 evening * s/p chest tube placement by ER physician * continue to monitor (8) Atrial fibrillation with rapid ventricular response: Code(s): I48.91 - Unspecified atrial fibrillation Status: Acute Assessment and Plan: * failed rate control measures with IV metoprolol and cardizem * s/p DC cardioversion with return with brief return to NSR * on oral amiodarone and heparin gtt * Echo results noted (06/05): * left ventricular systolic function is moderately reduced, estimated at 30- 35% * left ventricular diastolic function is grade I diastolic dysfunction * mild mitral valve regurgitation * mild tricuspid valve regurgitation * estimated pulmonary arterial systolic pressure is 34 mmHg * Cardiology recommendations noted (9) Influenza A: Code(s): J10.1 - Influenza due to other identified influenza virus with other respiratory manifestations Status: Acute Assessment and Plan: * positive testing in ER * completed course of Tamiflu (10) Schizophrenia: Code(s): F20.9 - Schizophrenia, unspecified Status: Acute Assessment and Plan: * known history * unclear what medication he was taking... Given family will be withdrawing care tomorrow, will sign off. Subjective Date/time seen: 06/14/24 13:36 Interval history: Follow-up for recurrent of acute kidney injury/acute renal failure. Renal function/creatinine continues to worsen in conjunction with poor/diminished urine output; remains intubated/sedated/paralyzed and on mechanical ventilation; weaned off vasopressor therapy with relative stability in hemodynamics; results of family discussion noted -- family to discontinue medical therapy after possible organ donation evaluation. Exam Narrative: General: middle aged male intubated/sedated/paralyzed and on mechanical ventilation Heart:IRRR normal S1 and S2; no rub Lungs: coarse breath sounds with scattered rales Abdomen: soft, nontender, nondistended, decreased bowel sounds Extremities: no cyanosis or clubbing; no edema Skin: no nodules Objective Data Vital Signs Vital Signs: Vital Signs Temp Pulse Resp BP Pulse Ox O2 Del Method FiO2 06/14/24 13:33 69 96 Mechanical Ventilation 40 06/14/24 12:00 69 06/14/24 12:00 71 26 H 06/14/24 12:00 71 26 H 108/55 L 06/14/24 12:00 98 26 H 06/14/24 12:00 40 06/14/24 12:00 96.6 F L 69 26 H 108/55 L 98 06/14/24 12:00 97 Mechanical Ventilation 40 06/14/24 11:21 79 98 Mechanical Ventilation 50 06/14/24 10:13 129 H 26 H 06/14/24 10:11 129 H 30 H 06/14/24 10:00 126 H 23 H 06/14/24 10:00 126 H 26 H 184/98 H 06/14/24 10:00 110 H 06/14/24 10:00 97.4 F L 127 H 23 H 184/98 H 93 06/14/24 09:51 129 H 30 H 06/14/24 09:00 132 H 26 H 174/101 H 06/14/24 08:16 88 06/14/24 08:00 95 26 H 06/14/24 08:00 92 06/14/24 08:00 40 06/14/24 08:00 96 Mechanical Ventilation 40 06/14/24 08:00 95 24 H 146/77 H 06/14/24 08:00 95 24 H 06/14/24 08:00 97.4 F L 101 H 26 H 146/77 H 100 06/14/24 07:57 102 H 100 Mechanical Ventilation 40 06/14/24 06:00 97.2 F L 96 24 H 146/71 H 100 06/14/24 06:00 96 06/14/24 06:00 96 146/71 H 06/14/24 06:00 96 24 H 06/14/24 06:00 96 24 H 146/71 H 06/14/24 06:00 96 24 H 06/14/24 05:29 101 H 24 H 06/14/24 05:29 101 H 24 H 06/14/24 05:27 123 H 24 H 06/14/24 05:27 123 H 24 H 06/14/24 04:55 106 H 100 Mechanical Ventilation 40 06/14/24 04:00 93 142/75 H 06/14/24 04:00 93 24 H 142/75 H 06/14/24 04:00 93 24 H 06/14/24 04:00 93 24 H 06/14/24 04:00 97.1 F L 93 24 H 142/75 H 100 06/14/24 04:00 45 06/14/24 04:00 90 06/14/24 04:00 100 Mechanical Ventilation 45 06/14/24 02:10 81 24 H 06/14/24 02:02 79 100 Mechanical Ventilation 40 06/14/24 02:02 78 24 H 06/14/24 02:00 76 120/56 L 06/14/24 02:00 76 24 H 120/56 L 06/14/24 02:00 76 24 H 06/14/24 02:00 97.4 F L 76 24 H 120/56 L 99 06/14/24 02:00 76 06/14/24 02:00 75 24 H 06/14/24 02:00 75 24 H 06/14/24 01:03 79 24 H 119/58 L 06/14/24 00:49 79 24 H 119/58 L 06/14/24 00:00 76 117/59 L 06/14/24 00:00 76 24 H 06/14/24 00:00 76 24 H 117/59 L 06/14/24 00:00 76 24 H 06/14/24 00:00 97.5 F L 76 24 H 117/59 L 99 06/14/24 00:00 76 06/14/24 00:00 45 06/14/24 00:00 99 Mechanical Ventilation 45 06/13/24 23:11 67 98 Mechanical Ventilation 40 06/13/24 22:00 70 105/53 L 06/13/24 22:00 70 24 H 06/13/24 22:00 70 24 H 105/53 L 06/13/24 22:00 70 24 H 06/13/24 22:00 97.8 F 70 24 H 105/53 L 98 06/13/24 22:00 69 06/13/24 21:55 71 24 H 06/13/24 21:55 71 24 H Intake/Output Intake/Output: Intake & Output 06/11/24 06/12/24 06/13/24 06/14/24 23:59 23:59 23:59 23:59 Intake Total 3656.3 4055.8 3240.4 2484.2 Output Total 2350 1210 205 85 Balance 1306.3 2845.8 3035.4 2399.2 Meds/Results Medications: Active Medications Generic Name Dose Route Start Last Admin Trade Name Freq PRN Reason Stop Dose Admin Acetaminophen 650 mg 06/03/24 13:56 06/12/24 04:30 Acetaminophen Elixir 325 Mg/10.15 Ml Udc FEED TUBE 650 mg Q4H PRN Administration Fever Albuterol/Ipratropium 3 ml 06/03/24 13:50 Ipratropium 0.5 Mg/Albuterol Sulfate 2.5 Mg Ampul.Neb 3 Ml INHALATION Q6HRT PRN Wheezng Albuterol/Ipratropium 3 ml 06/03/24 20:00 06/14/24 19:55 Ipratropium 0.5 Mg/Albuterol Sulfate 2.5 Mg Ampul.Neb 3 Ml INHALATION 3 ml Q6HRT ARABELLA Administration Amiodarone HCl 200 mg 06/14/24 08:00 06/14/24 08:16 Amiodarone Hcl 200 Mg Tablet PO 200 mg DAILY@0800 ARABELLA Administration Dextrose 12.5 gm 06/03/24 13:46 06/14/24 14:03 Dextrose 50% 25 Gm/50 Ml Syringe IV PUSH 12.5 gm PRN PRN Administration Hypoglycemia Protocol Enoxaparin Sodium 30 mg 06/13/24 09:00 06/14/24 08:18 Enoxaparin 30 Mg/0.3 Ml Syringe SUB-Q 30 mg QAM ARABELLA Administration Glucagon 1 mg 06/03/24 13:46 Glucagon For Inj 1 Mg Vial IM PRN PRN Hypoglycemia Protocol Glucose 15 gm 06/03/24 13:46 Glucose Oral Gel 15 Gm Of Glucse In 37.5 Gm Tube PO PRN PRN Hypoglycemia Protocol Heparin Sodium (Porcine) 6,000 units 06/03/24 12:33 06/04/24 23:06 Heparin Sodium 5,000 Units/Ml Vial IV PUSH 6,000 units PRN PRN Administration aPTT less than 55 seconds Heparin Sodium (Porcine) 3,000 units 06/03/24 12:33 06/06/24 05:43 Heparin Sodium 5,000 Units/Ml Vial IV PUSH 3,000 units PRN PRN Administration aPTT 55 - 70 seconds Hydralazine HCl 10 mg 06/10/24 11:11 Hydralazine Hcl 20 Mg/Ml Vial IV PUSH Q4H PRN Blood Pressure - High Heparin Sodium/Dextrose 25,000 units in 250 mls @ 0 mls/hr 06/03/24 12:35 06/09/24 19:27 Heparin Sodium/D5w 100 Units/Ml IV CONT Infused .Q0M ARABELLA Titration Protocol Dextrose 1,000 mls @ 100 mls/hr 06/03/24 13:46 Dextrose 5% 1,000 Ml IVPB PRN PRN Hypoglycemia Protocol Fentanyl Citrate 2,500 mcg in 250 mls @ 20 mls/hr 06/03/24 13:50 06/14/24 19:00 Fentanyl 2,500 Mcg/Ns 250 Ml IV CONT 200 mcg/hr .[id number] ARABELLA 20 mls/hr Administration Protocol 200 MCG/HR Micafungin Sodium 100 mg/ 100 mls @ 100 mls/hr 06/08/24 09:00 06/14/24 08:17 Sodium Chloride IVPB 100 mls/hr DAILY ARABELLA Administration Vancomycin HCl 1,250 mg in 250 mls @ 166.667 mls/hr 06/11/24 18:00 06/13/24 18:11 Vancomycin 1,250 Mg/Ns 250 Ml IVPB Not Given Q12H ARABELLA Propofol 100 mls @ 22.77 mls/hr 06/11/24 17:45 06/14/24 19:00 Diprivan IV CONT 50 mcg/kg/min .Q4H24M ARABELLA 22.77 mls/hr Administration Protocol 50 MCG/KG/MIN Norepinephrine Bitartrate 8 mg in 250 mls @ 0 mls/hr 06/12/24 10:30 06/14/24 06:00 Levophed 8 Mg/D5w 250 Ml IV CONT 0 mcg/min .Q0M ARABELLA 0 mls/hr Titration Protocol Midazolam HCl 100 mg in 100 mls @ 4 mls/hr 06/14/24 10:05 06/14/24 10:13 Versed 100 Mg/Ns 100 Ml IV CONT 4 mg/hr .Q25H ARABELLA 4 mls/hr Administration Protocol 4 MG/HR Cefepime HCl 1 gm in 50 mls @ 100 mls/hr 06/14/24 18:00 06/14/24 17:06 Maxipime 1 Gm/Ns 50 Ml IVPB 100 mls/hr Q12H ARABELLA Administration Dextrose 1,000 mls @ 25 mls/hr 06/14/24 14:05 06/14/24 14:05 Dextrose 10% IV CONT 25 mls/hr .Q24H ARABELLA Administration Insulin Aspart 3 - 6 units 06/03/24 18:00 06/14/24 18:49 Insulin Aspart (*Bkc) 100 Units/Ml SUB-Q Not Given Q6HR [facility] Protocol Insulin Glargine 5 units 06/09/24 09:00 06/13/24 10:41 Insulin Glargine (*Bkc) 100 Units/Ml SUB-Q 5 units DAILY ARABELLA Administration Metoprolol Tartrate 50 mg 06/09/24 09:00 06/12/24 21:05 Metoprolol Tartrate 50 Mg Tab FEED TUBE Not Given Q12HR ARABELLA Midazolam HCl 2 mg 06/12/24 08:54 06/12/24 09:00 Midazolam Hcl (*Crx) 2 Mg/2 Ml Vial IV PUSH 2 mg Q1H PRN Administration Sedation Multi-Ingred Cream/Lotion/Oil/Oint 1 applic 06/03/24 14:00 06/14/24 20:37 Mineral Oil/White Petrolatum Ointment EACH EYE 1 applic Q12HR ARABELLA Administration Pantoprazole Sodium 40 mg 06/04/24 09:00 06/14/24 08:16 Pantoprazole Sodium Iv 40 Mg Vial IV PUSH 40 mg QAM ARABELLA Administration Polyethylene Glycol 17 gm 06/09/24 10:25 06/14/24 08:16 Polyethylene Glycol 3350 17 Gm Powd.Pack PO 17 gm QAM ARABELLA Administration Senna/Docusate Sodium 1 tab 06/11/24 21:00 06/14/24 20:10 Senna/Docusate Sodium Tablet PO Not Given HS ARABELLA Sodium Bicarbonate 650 mg 06/13/24 09:00 06/14/24 17:06 Sodium Bicarbonate Tab 650 Mg Tablet FEED TUBE 650 mg BID ARABELLA Administration Sodium Chloride 10 ml 06/03/24 22:00 06/14/24 20:38 Central Line Flush IV PUSH 10 ml Q8HR ARABELLA Administration Sodium Chloride 20 ml 06/03/24 19:36 06/11/24 04:53 Central Line Flush IV PUSH 20 ml PRN PRN Administration after blood draws Sodium Zirconium Cyclosilicate 10 gm 06/13/24 10:00 06/14/24 17:06 Sodium Zirconium Cyclosilicate 10 Gm Powd.Pack FEED TUBE 10 gm BID@1000,1800 ARABELLA Administration Radiology Results: ITS Impressions Abdomen Ultrasound 06/05/24 08:52 IMPRESSION: 1. Small volume of ascites. Chest/Abdomen/Pelvis CT 06/11/24 09:34 IMPRESSION: CHEST: 1. Bilateral pneumonia with slight improvement in the upper lobes and worsening in the lower lobes. 2. Left chest tube with tiny apical pneumothorax. ABDOMEN/PELVIS: 1. No evidence of appendicitis, diverticulitis or intestinal obstruction. 2. Possible gallstones. 3. Retroperitoneal fat stranding which may be inflammatory. Clinical correlation and follow-up advised. 4. Thickened wall of the rectum. Clinical evaluation advised. Renal Ultrasound 06/13/24 17:11 IMPRESSION: No hydronephrosis or renal calculi. 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 Correlate clinically for pulmonary edema and/or chronic interstitial disease. Support tubes, as above. No pneumothorax. Labs Labs: Laboratory Tests 06/14/24 06/14/24 06/14/24 05:39 12:14 12:15 WBC 17.8 H 14.9 H Hgb 7.3 L 6.5 L* Hct 23.2 L 21.0 L Plt Count 306 244 Sodium 145 143 Potassium 4.8 5.0 Chloride 108 H 107 Carbon Dioxide 23 24 BUN 85 H D 88 H Creatinine 3.03 H 3.23 H Estimated GFR 22 L 21 L Glucose 96 78 Calcium 7.5 L 7.5 L Phosphorus 8.0 H 8.4 H Magnesium 2.0 2.0 Total Bilirubin 0.6 0.7 AST 41 37 ALT 19 19 Alkaline Phosphatase 96 93 Total Creatine Kinase 396 H Total Protein 6.0 L 5.0 L Albumin 2.7 L 2.6 L
[2024-06-14 14:00] LABS: Glucose Point of Care 70 mg/dl (65-105)
[2024-06-14] MEDS: DEXTROSE 50% 25 GM/50 ML SYRINGE IV PUSH (14:03)
[2024-06-14] MEDS: DEXTROSE 10% 1,000 ML 25 ML IV CONT (14:05)
[2024-06-14 15:11] LABS: Glucose Point of Care 87 mg/dl (65-105)
[2024-06-14] MEDS: CEFEPIME 1 GM/NS 50 ML 1 GM/50 ML BAG IVPB (17:06)
[2024-06-14 18:01] LABS: Glucose Point of Care 76 mg/dl (65-105)
[2024-06-14 18:20] LABS: Mean Corpuscular HGB Conc 32.2 g/dl (32-36); Mean Corpuscular Hemoglobin 30.9 pg (26-34); Mean Corpuscular Volume 95.9 fl (80-100); Mean Platelet Volume 9.1 fl (7.4-10.4); Platelet Count Result 255 k/mm3 (150-375); Red Blood Count 2.17 M/mm3 (4.6-6.20); White Blood Count 14.5 K/mm3 (4.5-10.0)
[2024-06-14 18:28] LABS: Hematocrit 20.8 % (42.0-52.0); Hemoglobin 6.7 g/dL (14.0-18.0)
[2024-06-14 18:29] LABS: Lactic Acid Reflex 0.5 mmol/L (0.7-2.0)
[2024-06-14 18:30] LABS: Alanine Aminotransferase 23 U/L (6-50); Albumin Level 2.6 g/dL (3.5-5.1); Alkaline Phosphatase 98 U/L (38-126); Amylase 99 U/L (30-110); Anion Gap 16 mmol/L (4-12); Aspartate Amino Transferase 49 U/L (17-59); Bilirubin,Total 0.7 mg/dL (0.2-1.3); Blood Urea Nitrogen 96 mg/dL (9-20); Calcium 7.5 mg/dL (8.4-10.2); Carbon Dioxide 21 mmol/L (22-30); Chloride 106 mmol/L (98-107); Estimated CRCL calculation 23 ml/min; Estimated Glomerular Filt Rate 20; Glucose 76 mg/dL (65-110); INR 1.2; Lipase 435 U/L (23-300); Phosphorus 8.6 mg/dL (2.5-4.5); Potassium 4.9 mmol/L (3.4-5.0); Sodium 143 mmol/L (137-145)
[2024-06-14 19:03] LABS: Vancomycin Trough 44.6 ug/mL (10.0-20.0)
[2024-06-14 20:06] LABS: Glucose Point of Care 70 mg/dl (65-105)
[2024-06-14 21:59] LABS: Glucose Point of Care 70 mg/dl (65-105)
[2024-06-14 22:58] LABS: GGT 106 U/L (3-95)
[2024-06-15] VITALS (27 sets, daily range): BP systolic 122–166; BP diastolic 54–74; PULSE 80–120; RESP 20–28; TEMP 36.6–37.7; O2SAT 90–99
[2024-06-15 00:03] LABS: Glucose Point of Care 67 mg/dl (65-105)
[2024-06-15] MEDS: DEXTROSE 50% 25 GM/50 ML SYRINGE IV PUSH (00:19)
[2024-06-15 00:21] LABS: Mean Corpuscular HGB Conc 32.5 g/dl (32-36); Mean Corpuscular Hemoglobin 30.8 pg (26-34); Mean Corpuscular Volume 94.6 fl (80-100); Mean Platelet Volume 9.2 fl (7.4-10.4); Platelet Count Result 263 k/mm3 (150-375); Red Blood Count 2.21 M/mm3 (4.6-6.20); White Blood Count 15.2 K/mm3 (4.5-10.0)
[2024-06-15 00:33] LABS: Hematocrit 20.9 % (42.0-52.0); Hemoglobin 6.8 g/dL (14.0-18.0)
[2024-06-15 00:33] LABS: INR 1.2; Prothrombin Time 15.6 Seconds (11.1-14.7)
[2024-06-15 00:34] LABS: Partial Thromboplastin Time 32.5 Seconds (22.3-36.8)
[2024-06-15 00:38] LABS: Alanine Aminotransferase 33 U/L (6-50); Albumin Level 2.6 g/dL (3.5-5.1); Alkaline Phosphatase 121 U/L (38-126); Amylase 102 U/L (30-110); Anion Gap 18 mmol/L (4-12); Aspartate Amino Transferase 71 U/L (17-59); Bilirubin,Total 0.7 mg/dL (0.2-1.3); Blood Urea Nitrogen 100 mg/dL (9-20); Calcium 7.7 mg/dL (8.4-10.2); Carbon Dioxide 19 mmol/L (22-30); Chloride 106 mmol/L (98-107); Estimated CRCL calculation 22 ml/min; Estimated Glomerular Filt Rate 19; Glucose 73 mg/dL (65-110); Lipase 464 U/L (23-300); Magnesium 2.1 mg/dL (1.6-2.3); Phosphorus 8.5 mg/dL (2.5-4.5); Potassium 4.8 mmol/L (3.4-5.0); Sodium 143 mmol/L (137-145)
[2024-06-15 00:39] LABS: Lactic Acid Reflex 0.5 mmol/L (0.7-2.0)
[2024-06-15 00:43] LABS: Glucose Point of Care 102 mg/dl (65-105)
[2024-06-15 02:04] LABS: Glucose Point of Care 93 mg/dl (65-105)
[2024-06-15] MEDS: IPRATROPIUM 0.5 MG/ALBUTEROL SULFATE 2.5 MG AMPUL.NEB 3 ML INHALATION ×4 (02:07→08:14)
[2024-06-15 04:03] LABS: Glucose Point of Care 81 mg/dl (65-105)
[2024-06-15] MEDS: PROPOFOL IV EMULSION 100 ML 22.77 MG IV CONT ×3 (04:30→12:31)
[2024-06-15 05:08] LABS: GGT 129 U/L (3-95)
[2024-06-15] MEDS: MIDAZOLAM HCL (*CRX) 2 MG/2 ML VIAL IV PUSH (05:35)
[2024-06-15] MEDS: CEFEPIME 1 GM/NS 50 ML 1 GM/50 ML BAG IVPB (06:12)
[2024-06-15] MEDS: CENTRAL LINE FLUSH 10 ML IV PUSH (06:15)
[2024-06-15 06:19] LABS: Glucose Point of Care 85 mg/dl (65-105)
[2024-06-15 06:25] LABS: Mean Corpuscular HGB Conc 32.7 g/dl (32-36); Mean Corpuscular Hemoglobin 30.9 pg (26-34); Mean Corpuscular Volume 94.5 fl (80-100); Mean Platelet Volume 9.4 fl (7.4-10.4); Platelet Count Result 239 k/mm3 (150-375); Red Blood Count 2.17 M/mm3 (4.6-6.20); Red Cell Distribution Width 14.7 % (11.5-14.5); White Blood Count 12.4 K/mm3 (4.5-10.0)
[2024-06-15 06:29] LABS: Hemoglobin 6.7 g/dL (14.0-18.0)
[2024-06-15 06:30] LABS: Hematocrit 20.5 % (42.0-52.0)
[2024-06-15 06:36] LABS: Lactic Acid Reflex 0.6 mmol/L (0.7-2.0)
[2024-06-15 06:39] LABS: Alanine Aminotransferase 36 U/L (6-50); Albumin Level 2.6 g/dL (3.5-5.1); Alkaline Phosphatase 125 U/L (38-126); Amylase 101 U/L (30-110); Anion Gap 17 mmol/L (4-12); Aspartate Amino Transferase 63 U/L (17-59); Bilirubin,Total 0.6 mg/dL (0.2-1.3); Blood Urea Nitrogen 101 mg/dL (9-20); Calcium 7.6 mg/dL (8.4-10.2); Carbon Dioxide 19 mmol/L (22-30); Chloride 106 mmol/L (98-107); Estimated CRCL calculation 22 ml/min; Estimated Glomerular Filt Rate 18; Glucose 82 mg/dL (65-110); Lipase 489 U/L (23-300); Phosphorus 8.7 mg/dL (2.5-4.5); Potassium 4.6 mmol/L (3.4-5.0); Sodium 142 mmol/L (137-145); Triglycerides 212 mg/dL (<150)
[2024-06-15] MEDS: MIDAZOLAM 100MG/NS 100ML(*CRX) 100 MG/100 ML BAG IV CONT (07:18)
[2024-06-15 08:08] LABS: Glucose Point of Care 80 mg/dl (65-105)
[2024-06-15] MEDS: FENTANYL 2,500MCG/NS250ML(*CRX 2,500 MCG/250 ML BAG 20 MCG IV CONT (08:20)
[2024-06-15] MEDS: ENOXAPARIN 30 MG/0.3 ML SYRINGE SUB-Q (08:40)
[2024-06-15] MEDS: AMIODARONE HCL 200 MG TABLET PO (08:41)
[2024-06-15] MEDS: SODIUM BICARBONATE TAB 650 MG TABLET FEED TUBE (08:41)
[2024-06-15] MEDS: PANTOPRAZOLE SODIUM IV 40 MG VIAL IV PUSH (08:41)
[2024-06-15] MEDS: MICAFUNGIN SODIUM 100 MG in SODIUM CHLORIDE 0.9% IV 100 ML IVPB (08:42)
[2024-06-15] MEDS: MINERAL OIL/WHITE PETROLATUM OINTMENT 1 APPLIC EACH EYE (08:44)
[2024-06-15 08:46] LABS: INR 1.2; Partial Thromboplastin Time 31.8 Seconds (22.3-36.8); Prothrombin Time 15.6 Seconds (11.1-14.7)
--- NOTE | 2024-06-15 09:20 | PC.NURSE ---
Order per Dr Camarillo to non-admin lokelma and miralax due to frequent BM on previous shift. Order to administer lovenox this morning. Order to continue current sedation rates. Pt initially unresponsive to verbal or physical stimuli but after holding sedation while drawing blood and repositioning the patient, the patient began have facial movement (moving eyes/eyebrows), HR, BP, and RR became elevated. MD made aware of vital signs.
--- NOTE | 2024-06-15 09:48 | PM.EVENT ---
Event Note Event Note Event Note: Patient examined. Chart reviewed. Labs and imaging reviewed. Ventilator settings reviewed. Yesterday patient's family decided to proceed with comfort care and palliative extubation. Patient was designated himself as a organ donor in the records. MDS spoke to the patient's family and patient's family consented to organ donation. Patient at this time is waiting for [facility] range DCD. Which is scheduled for this afternoon around 1:00 p.m. in the operating room. The it has been delayed due to issues with staffing. Meanwhile patient continues to be on mechanical ventilation is sedated with Versed propofol and fentanyl. He is off of Nimbex infusion since yesterday. He is on 50% FiO2 and 12 of PEEP. Urine output remains minimal. He remains afebrile P Serial labs are being performed as per MTS request to monitor organ function. His hemoglobin is is in 6.7 I have decided not to transfuse the patient considering futility of transfusion at this point. His creatinine continues to be worsened. Patient's family is aware of the plan of withdrawal and palliative extubation this afternoon in the operating room. They will be here at that time. I have also discussed with MTS and have ordered necessity labs and medications needed. At this time we will continue current treatment and supportive care under patient goes to the operating room for withdrawal of care and the DCD
[2024-06-15 10:31] LABS: Glucose Point of Care 80 mg/dl (65-105)
--- NOTE | 2024-06-15 10:48 | PCNFU ---
Nutrition Follow-Up Complete: Suboptimal Energy Intake as related to mechanical ventilation as evidenced by NPO. goal: Meet estimated nutritional needs. Patient not meeting goal. Pt current nutrition is NPO. Last recorded weight is 79.6 kg, up from 74.6 kg on admit. Bowel Motility:No BM reported since admit. Labs Reviewed:Cr 3.61, BUN 101, PO4 8.7 Meds Noted: Propofol 50 mwjt=918 kcal, Versed, Protonix. Skin: Deep Tissue-Sacrum. Additional Notes: Spoke Arranging Funeral Director today regarding plan of care. Plans to withdraw care today. No further nutritional interventions needed. Will monitor weight, labs, skin, diet orders, meds every 7 days.
[2024-06-15 10:56] LABS: Add Urine Microscopic? YES; Appearance Urine Turbid (Clear); Bacteria Urine None Seen /hpf; Bilirubin Urine Negative (Negative); Blood Urine 3+ (Negative); Color Urine Yellow (Yellow); Glucose Urine UA Negative (Negative); Ketones Urine Negative (Negative); Leukocyte Esterase Ur 1+ LEU/UL (Negative); Need Manual Microscopic Reviewed; Nitrate Urine Negative (Negative); Protein Urine 2+ mg/dL (Negative); RBC Urine >100 /hpf (0-2); Specific Grav Ur 1.012 (1.001-1.035); Squamous Epithelial Cell Urine Moderate /hpf (Few); Urobilinogen Urine 0.2 mg/dL (<2.0); pH Urine 5.5 (5.0-9.0)
[2024-06-15 12:08] LABS: Hepatitis B Core Ab Total NON-REACTIVE (NON-REACTIVE)
[2024-06-15 13:05] LABS: Glucose Point of Care 72 mg/dl (65-105)
[2024-06-15] MEDS: HEPARIN SODIUM 5,000 UNITS/ML VIAL 23000 UNITS IV PUSH (13:11)
[2024-06-15] MEDS: LORazepam INJ (*CRX) 2 MG/ML VIAL IV PUSH (13:18)
[2024-06-15] MEDS: MORPHINE SULFATE INJ (*CRX) 10 MG/ML AMP 5 MG IV PUSH (13:18)
[2024-06-15 13:34] LABS: GGT 93 U/L (3-95)
--- NOTE | 2024-06-15 14:21 | SUR.OPER ---
Departed ICU 8 at 1258. Arrived to OR 3 at 1302. Timeout completed at 1308. Heparin flush given at 1311. Extubated by respiratory therapist at 1319. Family at bedside. Two ICU RNs declared at 1335. Patient moved from ICU bed to OR table, prepped, and draped. Two ICU RNs announced 2nd declaration of at 1341. Incision at 1341. Liver out at 1406. Right Kidney out at 1436. Left Kidney out at 1438. All specimen, organs, and biopsies sent with MTS team.
--- NOTE | 2024-06-15 14:42 | P.DN_ITS ---
Discharge Summary Date and Time Date of : 06/15/24 Time of : 13:35 Provider Pronounced By: 2 RNs Name of First RN That Pronounced: Rita Garcia Name of Second RN That Pronounced: Addie De Leon Probable Cause of Probable Cause of : Acute respiratory failure secondary to pneumococcal pneumonia and influenza a, septic shock, acute kidney injury, congestive Heart Care earlier, atrial fibrillation Summary Hospital Course: 49 year old male with past medical history of unknown psychiatry disorder and hypertension was brought from [facility] to ER with hypoxia phone 06/03/2024. Patient was hypoxic and was placed on BiPAP initially the ER. Workup in the ER showed the patient was in AFib with RVR and had to be cardioverted. Cardiology was consulted the ER. He was started on heparin infusion. Due to his respiratory distress and hypoxia patient was eventually intubated in the ED. Patient also was in acute kidney injury and post intubation became hypotensive. He was started on vasopressors. He tested positive for influenza A and CT chest showed diffuse bilateral pulmonary infiltrates. He was started on broad- spectrum antibiotics and blood culture grew Gram-positive cocci in pairs. He was treated with vancomycin cefepime and doxycycline along with Tamiflu. Patient was significantly hypoxic and had to be placed in prone position and paralyzed with neuromuscular blockers. Cardiology and Nephrology were consulted. Blood cultures grew strep pneumoniae. His acute kidney injury initially improved with IV fluids When I evaluated the patient patient was on BiPAP of 14/7 at 90% FiO2. His respiratory rate was high 40s. Patient was unable to speak full sentences and was tachypnea. I spoke to ER physician and requested the patient needs to be intubated due to his respiratory failure. ER physician was agreeable. Patient was also agreeable for intubation and mechanical ventilation. He requested that his father be making decisions on his behalf if he is unable to do so. Patient is now going to be intubated in the ER prior to transfer to ICU. He has additional test pending including PCR for influenza and COVID along with CT scan of chest. Echo showed EF of 30-35%. Later the hospital course patient developed a spontaneous pneumothorax on the left side and had a chest tube placed. Patient continued to had fevers and patient was again started on vancomycin and micafungin. Hyponatremia improved. His urine function again deteriorated with drop in urine output and worsening creatinine. Patient's hypoxia again worsened with him requiring 100% FiO2 and high PEEP. Patient had to be paralyzed again with neuromuscular blockers and had to be placed in prone position. During this time multiple discussions and meetings happen with patient's father and later with his brother. Including when he developed worsening of his respiratory status and kidney failure. Initially they made him DNR. After few days in light of him not improving and continue to getting worse they decided to proceed with palliative extubation and comfort care it consistent with patient's wishes that he had expressed to them. They both were in agreement the patient would not want to continue on life support for prolonged period of time especially if he is not getting better and considering all the medical problems he has. They state that he had a very poor quality of life due to psychiatric disorder and being in and out of [facility] and in and out of various institutions. They did not think patient would want to continue being tied up in a bed stuck to a breathing machine. On 06/14/24 patient's family decided to proceed with comfort care and palliative extubation. Patient had designated himself as a organ donor in the records. MTS spoke to the patient's family and patient's family consented to organ don ation. We decided to continue supportive care while MTS arranges DCD. It was delayed due to issues with staffing. Meanwhile both ICU and MTS staff were in communication with patient's father and other family members. Patient was continued on mechanical ventilation and sedated with Versed propofol and fentanyl. Nimbex infusion was discontinued. Today patient was taken to the operating room where patient was palliatively extubated presence of his family and placed on comfort care. Patient soon and his organs were harvested consistent with his wishes Additional Data Confirmation of as documented by pronouncing clinician: Pupillary Reflex, Palpable Pulses, Response to Stimuli, Heart Tones and Breath Sounds Name of Provider Notified: Rabia Time Provider Notified: 13:45 Provider Requests Autopsy: No Family Requests Autopsy: No Inspecting And Testing Lead Hand Notified: Yes Date [facility] Notified of : 06/15/24 Time [facility] Notified of : 14:17
--- NOTE | 2024-06-15 14:54 | PC.NURSE ---
PT left ICU at 1258 arrived in the OR at 1302. Timeout performed in the OR at 1308. Heparin IV push administered at 1311. Propofol stopped, morphine and Ativan administered and patient was extubated at 1319. No heart or lung sounds auscultated and time of pronounced by 2 RN at 1335.
[2024-06-16 11:44] LABS: GGT 135 U/L (3-95)
[2024-06-20 16:18] LABS: CK-BB 1 % of total (NONE DETECTED); CK-MB 0 % of total (<5); CK-MM 99 % of total (95-100)
== END 2024-06-15 13:35 | disposition expired | DRG 870 ==
LOC: ANHED 14:11 → ANHICU 14:48
PROVIDERS: Internal Medicine; Internal Medicine Nephrology; Physician Assistant; Admitting Provider Internal Medicine; Emergency Provider Emergency Medicine; PCP Internal Medicine; Visit Provider Internal Medicine
DX: A41.89 Other specified sepsis (principal); R65.21 Severe sepsis with septic shock; J96.01 Acute respiratory failure with hypoxia; J10.08 Influenza due to other identified influenza virus with other specified pneumonia; N17.0 Acute kidney failure with tubular necrosis; J13 Pneumonia due to Streptococcus pneumoniae; E22.2 Syndrome of inappropriate secretion of antidiuretic hormone; J93.83 Other pneumothorax; B49 Unspecified mycosis; B95.3 Streptococcus pneumoniae as the cause of diseases classified elsewhere; I48.91 Unspecified atrial fibrillation; E86.0 Dehydration; F20.9 Schizophrenia, unspecified; I50.9 Heart failure, unspecified; I11.0 Hypertensive heart disease with heart failure; Z66 Do not resuscitate; J10.1 Influenza due to other identified influenza virus with other respiratory manifestations; I49.3 Ventricular premature depolarization; F10.10 Alcohol abuse, uncomplicated; F17.210 Nicotine dependence, cigarettes, uncomplicated; Z51.5 Encounter for palliative care
CPT/HCPCS: 31500; 36415; 36600; 71045; 71250; 74176; 76705; 76775; 80048; 80053; 80074; 80202; 81001; 82150; 82248; 82375; 82533; 82550; 82552; 82570; 82805; 82948; 82977; 83050; 83605; 83690; 83735; 83880; 83930; 83935; 84100; 84145; 84155; 84156; 84165; 84166; 84295; 84300; 84443; 84478; 84484; 84540; 85018; 85025; 85027; 85610; 85730; 85999; 86703; 86704; 86706; 86738; 86850; 86900; 86901; 87040; 87181; 87186; 87340; 87449; 87637; 87641; 87899; 93005; 93306; 94002; 94003; 94640; 96361; 96365; 96366; 96367; 96375; 99291; A9270; C1729; C1751; G0432; J0282; J0330; J0613; J0692; J1644; J1650; J1720; J1815; J1940; J2060; J2248; J2250; J2270; J2470; J2597; J2704; J2765; J3010; J3370; J3480; J7030; J7060; P9045; P9047